=== PATIENT | male | born 1965 | race Caucasian/White ===

== ENCOUNTER 2016-09-23 11:48 | Emergency (ER) | payer OTHER, SELFPAY ==
[~2016-09-23] VITALS: Ht 175.3 cm; Wt 83.0 kg
[2016-09-23] MEDS ORDERED: HEPARIN DRIP 25,000 UNITS in APPROPRIATE DILUENT 1 EA IV SCH (11:56)
[2016-09-23] MEDS ORDERED: NITROGLYCERIN 2% OINT 1 GM *U/D* PKT As Ordered ONE (11:56)
[2016-09-23] MEDS ORDERED: NITROGLYCERIN 2% OINT 1 GM *U/D* PKT TOP ONE (12:00)
[2016-09-23] MEDS ORDERED: TENECTEPLASE 50 MG KIT (TNKase)(J3101) IV ONE (12:00)
[2016-09-23] MEDS ORDERED: HEPARIN SOD (PORCINE) 5000 UNITS/ML VIAL IV ONE (12:00)
[2016-09-23] MEDS: MORPHINE 4 MG/ML 1ML SYRINGE IV PRN ×2 (12:01→12:15)
[2016-09-23 12:04] LABS: BASO % 0.4 % (0.0-1.0); EOS # 0.4 K/mm3 (0.0-0.50); EOS % 3.1 % (0.0-3.0); LARGE UNSTAINED CELL # 0.2 K/mm3 (0.0-0.4); LARGE UNSTAINED CELL % 1.7 % (0.0-4.0); LYMPH # 3.7 K/mm3 (1.5-4.5); LYMPH % 26.6 % (24.0-44.0); MEAN CORPUSCULAR HEMOGLOBIN 34.6 pg (27.0-33.0); MEAN CORPUSCULAR HGB CONC 35.4 g/dl (32.0-36.5); MEAN CORPUSCULAR VOLUME 97.6 fl (80.0-96.0); MONO # 0.9 K/mm3 (0.0-0.8); MONO % 6.4 % (0.0-5.0); NEUTROPHILS # 8.5 K/mm3 (1.8-7.7); NEUTROPHILS % 61.8 % (36.0-66.0); PLATELET COUNT, AUTOMATED 304 k/mm3 (150-450); RED CELL DISTRIBUTION WIDTH 13.3 % (11.5-14.5); WHITE BLOOD COUNT 13.8 K/mm3 (4.0-10.0)
[2016-09-23] MEDS ORDERED: CLOPIDOGREL 75 MG TAB PO STA (12:05)
--- NOTE | 2016-09-23 12:08 | REP ---
Portable chest, single AP view, the patient semi upright: There are no comparisons. There is an incomplete inspiratory effort. This in combination with portable positioning artifactually magnify cardiac size. There are no focal infiltrates. The interstitium is mildly coarsened. This is of uncertain significance and could be artifact from incomplete inspiration portable technique. There are no masses. The jina, mediastinum, and bony thorax are unremarkable. Signed by [place] Pierre MD 09/23/2016 12:00 P
[2016-09-23] MEDS ORDERED: ONDANSETRON 4MG/2ML VIAL (J2405) IV ONE (12:15)
[2016-09-23 12:25] VITALS: BP 154/80
[2016-09-23 12:35] VITALS: BP 158/94
[2016-09-23 12:39] LABS: ANION GAP 8 MEQ/L (8-16); BLOOD UREA NITROGEN 19 MG/DL (7-18); CALCIUM LEVEL 8.5 MG/DL (8.5-10.1); CARBON DIOXIDE LEVEL 27 MEQ/L (21-32); CHLORIDE LEVEL 106 MEQ/L (98-107); CREATININE FOR GFR 1.07 MG/DL (0.70-1.30); GLOMERULAR FILTRATION RATE > 60.0 (>60); GLUCOSE, FASTING 233 MG/DL (70-105); POTASSIUM SERUM 3.7 MEQ/L (3.5-5.1); SODIUM LEVEL 141 MEQ/L (136-145)
[2016-09-23 12:41] LABS: INR 1.08
--- NOTE | 2016-09-24 20:26 | ECGEPIP ---
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
== END 2016-09-23 12:38 | disposition short-term general hospital (02) ==
LOC: EDBD 11:48 → M ED 12:04
DX: I21.3 ST elevation (STEMI) myocardial infarction of unspecified site (principal); R06.02 Shortness of breath; F17.200 Nicotine dependence, unspecified, uncomplicated; Z82.49 Family history of ischemic heart disease and other diseases of the circulatory system

== ENCOUNTER → 2017-03-20 | Outpatient (REF) | payer OTHER | LOC: M SFHCCLAY 14:51 | PROVIDERS: ATTEND Family Medicine | DX: Z11.4 Encounter for screening for human immunodeficiency virus [HIV] (principal) ==

== ENCOUNTER 2018-11-21 00:23 | Inpatient (IN) | payer OTHER ==
[~2018-11-21] VITALS: Ht 175.3 cm; Wt 77.7 kg
[2018-11-21] VITALS (7 sets, daily range): BP systolic 121–138; BP diastolic 57–71
[~2018-11-21 00:23] MED LIST: MACR100C43 PO
[2018-11-21] MEDS ORDERED: ATOR40TA75 PO ×2 (00:42→04:25)
[2018-11-21] MEDS ORDERED: LISI-542 PO ×2 (00:42→04:25)
[2018-11-21] MEDS ORDERED: ECOT81TA5 PO (00:42)
[2018-11-21] MEDS ORDERED: PLAV1TAB2 PO ×2 (00:42→04:25)
[2018-11-21] MEDS ORDERED: NS 1,000 ML IV ONE (01:15)
[2018-11-21 01:24] LABS: BASO # 0.1 10^3/uL (0.0-0.2); BASO % 0.3 % (0.0-1.0); EOS # 0.2 10^3/uL (0.0-0.50); EOS % 1.4 % (0.0-3.0); HEMOGLOBIN 12.8 g/dl (13.5-17.5); LYMPH # 2.4 10^3/uL (1.5-4.5); LYMPH % 16.5 % (24.0-44.0); MEAN CORPUSCULAR HGB CONC 33.7 g/dl (32.0-36.5); MEAN CORPUSCULAR VOLUME 97.9 fl (80.0-96.0); MONO # 1.3 10^3/uL (0.0-0.8); MONO % 8.6 % (0.0-5.0); NEUTROPHILS # 10.7 10^3/uL (1.8-7.7); NEUTROPHILS % 72.9 % (36.0-66.0); PLATELET COUNT, AUTOMATED 276 10^3/uL (150-450); RED BLOOD COUNT 3.88 10^6/uL (4.30-6.10); WHITE BLOOD COUNT 14.7 10^3/uL (4.0-10.0)
[2018-11-21 01:34] LABS: INR 1.12; PROTHROMBIN TIME 14.1 SECONDS (11.8-14.0)
[2018-11-21 01:35] LABS: PARTIAL THROMBOPLASTIN TIME 24.7 SECONDS (25.0-38.4)
[2018-11-21 01:43] LABS: BLOOD UREA NITROGEN 16 MG/DL (7-18); CALCIUM LEVEL 8.3 MG/DL (8.5-10.1); CARBON DIOXIDE LEVEL 25 MEQ/L (21-32); CHLORIDE LEVEL 111 MEQ/L (98-107); CREATININE FOR GFR 0.97 MG/DL (0.70-1.30); GLOMERULAR FILTRATION RATE > 60.0 (>56); GLUCOSE, FASTING 132 MG/DL (70-100); POTASSIUM SERUM 4.2 MEQ/L (3.5-5.1); SODIUM LEVEL 141 MEQ/L (136-145)
[2018-11-21] MEDS ORDERED: ISOVUE-370 76% 100ML VIAL (Q9967) As Ordered ONE (02:11)
[2018-11-21 02:49] LABS: APPEARANCE, URINE MANUAL TURBID (CLEAR); COLOR, URINE MANUAL RED (YELLOW); SPECIFIC GRAVITY,URINE MANUAL 1.041 (1.002-1.035)
[2018-11-21 02:53] LABS: BILIRUBIN, URINE MANUAL OBSCURED (NEGATIVE); BLOOD URINE MANUAL POSITIVE (NEGATIVE); GLUCOSE, URINE (UA) MANUAL OBSCURED mg/dL (NEGATIVE); KETONE, URINE MANUAL OBSCURED mg/dL (NEGATIVE); LEUKOCYTE ESTERASE, URINE MAN OBSCURED (NEGATIVE); NITRITE, URINE MANUAL OBSCURED (NEGATIVE); PH,URINE MAN OBSCURED UNITS (5.0 - 7.0); PROTEIN, URINE MANUAL OBSCURED mg/dL (NEGATIVE); UROBILINOGEN, URINE MANUAL OBSCURED mg/dl (NORMAL)
[2018-11-21 02:55] LABS: BACTERIA, URINE NONE SEEN; HYALINE CAST, URINE NONE SEEN /lpf (0-1); RBC, URINE TNTC /hpf (0-3); SQUAMOUS EPITHELIAL CELL URINE NONE SEEN /hpf (SMALL AMT)
[2018-11-21] MEDS ORDERED: LIDOCAINE 2% 5ML JELLY UROJET TOP ONE ×2 (03:00→05:30)
[2018-11-21] MEDS ORDERED: METAL LOCK LOOP XX ONE (03:16)
--- NOTE | 2018-11-21 04:19 | REPVR ---
EXAM: CT Abdomen and Pelvis With Contrast EXAM DATE/TIME: 11/21/2018 2:03 AM CLINICAL HISTORY: 52 years old, male; Other: Hematuria; Additional info: Eval hematuria/bladder path ? TECHNIQUE: Imaging protocol: Axial computed tomography images of the abdomen and pelvis with intravenous contrast. Coronal and sagittal reformatted images were created and reviewed. Radiation optimization: All CT scans at this facility use at least one of these dose optimization techniques: automated exposure control; mA and/or kV adjustment per patient size (includes targeted exams where dose is matched to clinical indication); or iterative reconstruction. Contrast material: ISO; Contrast volume: 100 ml; Contrast route: AC; COMPARISON: CT ABD PELVIS WITH CONTRAST 03/14/2016 5:44 PM FINDINGS: Lungs: The visualized portions of the lung bases are normal. Mediastinum: A small hiatal hernia is present. Liver: There are no focal liver lesions present. Gallbladder and bile ducts: The gallbladder is normal with no stones or biliary ductal dilation. Pancreas: The pancreas is normal with no ductal dilation. Spleen: The spleen is normal. Adrenals: The adrenal glands are normal. Kidneys and ureters: There is an extrarenal pelvis of the left kidney.There are no renal or ureteral stones or hydronephrosis. The nephrograms are symmetric. Stomach and bowel: Moderate diverticulosis is present in the sigmoid colon. The small bowel appears unremarkable. Appendix: A normal appendix is identified. Intraperitoneal space: There is no evidence of free intraperitoneal or pelvic fluid. There is no free intraperitoneal air. Vasculature: Atherosclerotic changes are present in the abdominal aorta and the iliac arteries. Lymph nodes: No lymphadenopathy is seen. Bladder: The bladder is moderately distended. There is a large, irregularly-shaped hyperdense intraluminal blood clot in the bladder measuring 9.1 x 9.2 x 5.0 cm. It is outlined by excreted contrast on the delayed postcontrast images. In the anterior inferior aspect of the bladder, there is nodularity of the bladder wall, measuring 1.7 x 1.7 x 0.7 cm which may represent a small bladder mass. It is difficult to determine if it enhances as it is similar in density on the initial and the delayed postcontrast images and no unenhanced images are available. Reproductive: The prostate gland demonstrates moderate nonspecific enlargement. The seminal vesicles are normal. Bones/joints: Degenerative endplate changes are seen at multiple levels in the visualized spine. Soft tissues: Unremarkable. IMPRESSION: 1. Large blood clot within the lumen of the bladder with moderate distention of the bladder. Small hyperdense soft tissue nodule along the anteroinferior aspect of the bladder is suspicious for a bladder mass. 2. Moderate enlargement of the prostate. 3. No renal, ureteral, or bladder stones. No significant hydronephrosis. Electronically signed by: Marry Riojas On 11/21/2018 04:19:05 AM
[2018-11-21] MEDS ORDERED: MACR100C43 PO (04:25)
[2018-11-21] MEDS ORDERED: ASPI81CH33 PO (04:25)
[2018-11-21] MEDS ORDERED: NITR4TASL SL (04:26)
[2018-11-21] MEDS ORDERED: MORPHINE 4 MG/ML 1ML VIAL/SYRINGE (J2270) IV ONE (05:45)
[2018-11-21 06:50] LABS: HEMATOCRIT 35.9 % (42.0-52.0)
--- NOTE | 2018-11-21 08:35 | REP ---
Portable chest x-ray: Single view. History: Preop. Comparison chest x-ray: September 23, 2016. Findings: EKG monitoring electrodes overlie the chest. Lungs are well inflated and clear. Heart is not enlarged. Pulmonary vasculature is not increased. No significant bony abnormalities seen. Impression: No active disease. Electronically Signed by Michael Martines MD 11/21/2018 08:26 A
--- NOTE | 2018-11-21 09:19 | SMCUROLCON ---
Urology Consultation General Date of Consultation 11/21/18 Reason For Consultation This patient is seen for Dizziness. History of Present Illness This is a 52 y/o M w/ a PMH significant for CAD (s/p MA and 2 stents in 2017), presenting to the ER w/ gross hematuria and urinary retention. He notes that he has on and off small amounts of gross hematuria for 2-3 years but he has never been evaluated for this. Yesterday evening he started having large amounts of gross hematuria until he could no longer void. Once in the ER a 3-way catheter was placed and CBI was started. A CT A/P was obtained and was notable for a large clot in the bladder as well as a possible anterior bladder mass. The patient is a current smoker and has a 20-30 pack year history. He is on ASA 81mg and plavix and last took them 2 days ago. He denies dysuria. He denies fevers or chills. His Hb in the ED on presentation was 12.8 and when repeated 5 hours later it was 12. Past Medical History Medical History CAD Surgical Hstory cardiac stents in 2017 Medications Current Medications Current Medications Home Med (Med Rec Complete!) ASDIRECTED XX ; Start 11/21/18 at 04:30; Stop 11/21/18 at 04:30; Status DC Allergies Allergies: Coded Allergies: No Known Allergies (Unverified , 09/23/16) Review of Systems General: Denies: Fatigue, Malaise Constitutional: Denies: Fever, Chills, Sweats, Weakness, Malaise Pulmonary: Denies: Dyspnea, Cough Cardiovascular: Denies Chest Pain, Denies Palpitations Gastrointestinal: Denies: Nausea, Vomiting, Abdominal Pain Genitourinary: Reports: Hematuria, Retention Musculoskeletal: Denies: Neck Pain, Back Pain Neurological: Denies: Weakness, Numbness, Incoordination, Change in Speech Psych: Reports: Mood Normal; Denies: Anxiety, Depression Physical Examination General Exam: Alert, Cooperative, No Acute Distress Chest Exam: Normal air movement Heart Exam: Rate Normal, Regular Rhythm Male Exam 3-way catheter in place w/ CBI on medium drip and pink urine draining Vital Signs/I&O Vital Signs Date Time Temp Pulse Resp B/P (MAP) Pulse Ox O2 Delivery O2 Flow Rate FiO2 11/21/18 08:49 69 15 97 11/21/18 08:30 124/58 (80) 11/21/18 06:25 Room Air 11/21/18 00:27 98.2 I&O- Last 24 Hours up to 6 AM 11/21/18 05:59 Intake Total 4000 ml Output Total 775 ml Balance 3225 ml Laboratory Data 24H Labs Laboratory Tests 2 11/21/18 01:19: Immature Granulocyte % (Auto) 0.3, White Blood Count 14.7H, Red Blood Count 3.88L, Hemoglobin 12.8L, Hematocrit 38.0L, Mean Corpuscular Volume 97.9H, Mean Corpuscular Hemoglobin 33.0, Mean Corpuscular Hemoglobin Concent 33.7, Red Cell Distribution Width 13.8, Platelet Count 276, Neutrophils (%) (Auto) 72.9H, Lymph ocytes (%) (Auto) 16.5L, Monocytes (%) (Auto) 8.6H, Eosinophils (%) (Auto) 1.4, Basophils (%) (Auto) 0.3, Neutrophils # (Auto) 10.7H, Lymphocytes # (Auto) 2.4, Monocytes # (Auto) 1.3H, Eosinophils # (Auto) 0.2, Basophils # (Auto) 0.1, Nucleated Red Blood Cells % (auto) 0.0, Prothrombin Time 14.1H, Prothromb Time International Ratio 1.12, Activated Partial Thromboplast Time 24.7L, Anion Gap 5L, Glomerular Filtration Rate > 60.0, Blood Urea Nitrogen 16, Creatinine 0.97, Sodium Level 141, Potassium Level 4.2, Chloride Level 111H, Carbon Dioxide Level 25, Calcium Level 8.3L 11/21/18 02:35: Bedside Urine Color (LAB) REDH, Bedside Urine Appearance (LAB) TURBIDH, Bedside Urine pH (LAB) OBSCUREDH, Bedside Urine Specific [place] (LAB 1.041H, Bedside Urine Protein (LAB) OBSCUREDH, Bedside Urine Glucose (UA) OBSCUREDH, Bedside Urine Ketones (LAB) OBSCUREDH, Bedside Urine Blood POSITIVEH, Bedside Urine Nitrite (LAB) OBSCUREDH, Bedside Urine Bilirubin (LAB) OBSCUREDH, Bedside Urine Urobilinogen (LAB) OBSCUREDH, Bedside Urine Leukocyte Esterase (L OBSCUREDH, Urine WBC 1-3, Urine RBC TNTCH, Urine Squamous Epithelial Cells NONE SEEN, Urine Bacteria NONE SEEN, Urine Hyaline Casts NONE SEEN, Urine Sediment Examination PERFORMED CBC/BMP Laboratory Tests 11/21/18 01:19 Red Blood Count 3.88 L, Mean Corpuscular Volume 97.9 H, Mean Corpuscular Hemoglobin 33.0, Mean Corpuscular Hemoglobin Concent 33.7, Red Cell Distribution Width 13.8, Neutrophils (%) (Auto) 72.9 H, Lymphocytes (%) (Auto) 16.5 L, Monocytes (%) (Auto) 8.6 H, Eosinophils (%) (Auto) 1.4, Basophils (%) (Auto) 0.3, Neutrophils # (Auto) 10.7 H, Lymphocytes # (Auto) 2.4, Monocytes # (Auto) 1.3 H, Eosinophils # (Auto) 0.2, Basophils # (Auto) 0.1, Calcium Level 8.3 L 11/21/18 06:38 Microbiology Microbiology 11/21/18 Urine Culture, Received Pending Assessment This is a 52 y/o M here w/ gross hematuria and clot urinary retention. I discussed the CT findings w/ him and explained that he likely has a bladder tumor causing the hematuria. Given the large blood clot in the bladder he will likely remain in retention for a while even if the hematuria stops. I recommended that we take him to the OR today for cystoscopy, clot evacuation, and transurethral resection of bladder tumor. After a discussion of the risks and benefits, informed consent was signed. Of note, the patient has a hx of CAD s/p cardiac stents in 2017 and is on ASA 81mg and plavix, last taken 2 days ago. 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 He notes that he has not had any cardiac problems recently. Plan - recommend admission to hospitalist service - hold plavix (ok to keep on ASA 81mg) - continue CBI and titrate the drip so that outflow remains pink or clearer - plan to take him to the OR today for cystoscopy, clot evacuation, and transurethral resection of bladder tumor - NPO until surgery YAMIL SENIOR MD Nov 21, 2018 09:19
--- NOTE | 2018-11-21 11:02 | HPEPDOC ---
[facility] Medical History & Physical Date of Admission Nov 21, 2018 Date of Service: Nov 21, 2018 History and Physical CHIEF COMPLAINT: Dizziness HISTORY OF PRESENT ILLNESS: This is a 52-year-old male who has had spotty hematu james over the past couple of years. Over the past couple of days he developed orange urine and then red urine with clots. He developed cramping last night that was so severe he became dizzy and almost passed out. He had difficulty with urination. At that point he was then brought to the emergency room by ambulance. PAST MEDICAL HISTORY: 1. Coronary artery disease for which he sustained an ID in 2017 and underwent percutaneous intervention with placement of 2 stents. 2. Essential hypertension. 3. Hives of unclear etiology that resolved after one year. 4. History of left septic joint in 2016 for which he underwent incision and drainage. PAST SURGICAL HISTORY: 1. The aforementioned incision and drainage to the left knee. 2. 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 He is a [id number] history. He has attempted to quit unsuccessfully. ETOH: Alcohol use is moderate Illicit drug use: Patient states he uses marijuana sparingly IV drug use: None Other relevant social factors: The patient is full CODE STATUS. He does not have a medical decision proxy. His primary care provider is Dr. Ballard. FAMILY HISTORY: Father: Paternal history of heart disease and hypertension Mother: History of congenital valvular heart disease and multiple family members with various cancers ALLERGIES: Please see below. REVIEW OF SYSTEMS: 10 systems are reviewed and are negative except as stated in the HPI. HOME MEDICATIONS: Please see below. PHYSICAL EXAMINATION: VITAL SIGNS: Temperature afebrile, pulse 64-92, respiratory rate 15, blood pressure 121/57, pulse oximetry 98% on room air. GENERAL APPEARANCE: Well kempt, well-nourished, no acute distress. HEENT: Neck is supple, mild submental adenopathy, no thyromegaly, oral mucosa moist, good dentition, no scleral icterus. CARDIOVASCULAR: Regular rate and rhythm, no murmur or bruit, palpable PMI to left chest. LUNGS: Clear to auscultation with good air movement, no cough. ABDOMEN: Soft, nontender, nondistended, bowel tones are present, bladder irrigation catheter in place No flank or suprapubic tenderness. EXTREMITIES: No peripheral edema, pedal pulses are readily palpable. NEUROLOGICAL: No focal neuromotor or sensory deficit. PSYCHIATRIC: Mood is appropriate, cognition and insight are intact. LABORATORY DATA: See below. IMAGING: IMPRESSION: 1. Large blood clot within the lumen of the bladder with moderate distention of the bladder. Small hyperdense soft tissue nodule along the anteroinferior aspect of the bladder is suspicious for a bladder mass. 2. Moderate enlargement of the prostate. 3. No renal, ureteral, or bladder stones. No significant hydronephrosis. Electronically signed by: Marry Riojas On 11/21/2018 04:19:05 AM MICROBIOLOGY: Please see below. ASSESSMENT/PLAN: 1. Hematuria with bladder mass--patient is undergoing bladder irrigation. He has been seen by the urology service and will be taken to the OR for cystoscopy, evacuation of clots, and probable resection of mass. Concern is raised for neoplasm. 2. Coronary artery disease--patient had stents placed 2 years ago. His aspirin and Plavix are being held. He'll be continued on his usual medical management regimen after surgery. 3. DVT prophylaxis--will make use of serial compression devices until after surgery. The patient is appropriately placed inpatient status. We do anticipate his length of stay to be greater than 2 midnights. Given the patient's underlying comorbidities of coronary artery disease and essential hypertension and his antiplatelet therapy he is at high risk of bleeding. He is currently hemo dynamically stable. We will also continue to monitor his hemoglobin and transfuse as needed for any blood loss. Vital Signs Vital Signs Date Time Temp Pulse Resp B/P (MAP) Pulse Ox O2 Delivery O2 Flow Rate FiO2 11/21/18 09:19 92 99 11/21/18 08:49 15 11/21/18 08:30 124/58 (80) 11/21/18 06:25 Room Air 11/21/18 00:27 98.2 Laboratory Data Labs 24H Laboratory Tests 2 11/21/18 01:19: Immature Granulocyte % (Auto) 0.3, White Blood Count 14.7H, Red Blood Count 3.88L, Hemoglobin 12.8L, Hematocrit 38.0L, Mean Corpuscular Volume 97.9H, Mean Corpuscular Hemoglobin 33.0, Mean Corpuscular Hemoglobin Concent 33.7, Red Cell Distribution Width 13.8, Platelet Count 276, Neutrophils (%) (Auto) 72.9H, Lymphocytes (%) (Auto) 16.5L, Monocytes (%) (Auto) 8.6H, Eosinophils (%) (Auto) 1.4, Basophils (%) (Auto) 0.3, Neutrophils # (Auto) 10.7H, Lymphocytes # (Auto) 2.4, Monocytes # (Auto) 1.3H, Eosinophils # (Auto) 0.2, Basophils # (Auto) 0.1, Nucleated Red Blood Cells % (auto) 0.0, Prothrombin Time 14.1H, Prothromb Time International Ratio 1.12, Activated Partial Thromboplast Time 24.7L, Anion Gap 5L, Glomerular Filtration Rate > 60.0, Blood Urea Nitrogen 16, Creatinine 0.97, Sodium Level 141, Potassium Level 4.2, Chloride Level 111H, Carbon Dioxide Level 25, Calcium Level 8.3L 11/21/18 02:35: Bedside Urine Color (LAB) REDH, Bedside Urine Appearance (LAB) TURBIDH, Bedside Urine pH (LAB) OBSCUREDH, Bedside Urine Specific [place] (LAB 1.041H, Bedside Urine Protein (LAB) OBSCUREDH, Bedside Urine Glucose (UA) OBSCUREDH, Bedside Urine Ketones (LAB) OBSCUREDH, Bedside Urine Blood POSITIVEH, Bedside Urine Nitrite (LAB) OBSCUREDH, Bedside Urine Bilirubin (LAB) OBSCUREDH, Bedside Urine Urobilinogen (LAB) OBSCUREDH, Bedside Urine Leukocyte Esterase (L OBSCUREDH, Urine WBC 1-3, Urine RBC TNTCH, Urine Squamous Epithelial Cells NONE SEEN, Urine Bacteria NONE SEEN, Urine Hyaline Casts NONE SEEN, Urine Sediment Examination PERFORMED CBC/BMP Laboratory Tests 11/21/18 01:19 Red Blood Count 3.88 L, Mean Corpuscular Volume 97.9 H, Mean Corpuscular Hemoglobin 33.0, Mean Corpuscular Hemoglobin Concent 33.7, Red Cell Distribution Width 13.8, Neutrophils (%) (Auto) 72.9 H, Lymphocytes (%) (Auto) 16.5 L, Monocytes (%) (Auto) 8.6 H, Eosinophils (%) (Auto) 1.4, Basophils (%) (Auto) 0.3, Neutrophils # (Auto) 10.7 H, Lymphocytes # (Auto) 2.4, Monocytes # (Auto) 1.3 H, Eosinophils # (Auto) 0.2, Basophils # (Auto) 0.1, Calcium Level 8.3 L 11/21/18 06:38 Microbiology Microbiology 11/21/18 Urine Culture, Received Pending Home Medications Scheduled Aspirin (Aspirin) 81 Mg Tab.chew, 81 MG PO DAILY Atorvastatin Calcium (Atorvastatin Calcium) 40 Mg Tablet, 40 MG PO DAILY Clopidogrel Bisulfate (Plavix) 75 Mg Tablet, 75 MG PO DAILY Lisinopril (Lisinopril) 5 Mg Tablet, 5 MG PO DAILY Nitrofurantoin Monohyd/M-Cryst (Macrobid 100 mg Capsule) 100 Mg Capsule, 100 MG PO BID TAKEN ONLY 1 DOSE OF A 7 DAY BID PRESCRIPTION Scheduled PRN Nitroglycerin (Nitrostat) 0.4 Mg Tab.subl, 0.4 MG SL NITRO PRN for CHEST PAIN Allergies Coded Allergies: No Known Allergies (Unverified , 09/23/16) A-FIB/CHADSVASC A-FIB History Current/History of A-Fib/PAF?: No Current PO Anticoag Therapy: No KORTNEY DACOSTA MD Nov 21, 2018 11:02
[2018-11-21] MEDS ORDERED: ONDANSETRON 4MG/2ML VIAL (J2405) IV PRN ×2 (11:15→15:30)
[2018-11-21] MEDS ORDERED: FAMOTIDINE INJ 20MG/2ML VIAL (S0028) IVP ONE (11:15)
[2018-11-21] MEDS ORDERED: NS 1,000 ML IV SCH (11:15)
[2018-11-21] MEDS ORDERED: dexameTHASONE 4 MG/ML 1ML VIAL (J1100) As Ordered ONE (13:16)
[2018-11-21] MEDS ORDERED: PROPOFOL 200 MG/20 ML VIAL As Ordered ONE (13:16)
[2018-11-21] MEDS ORDERED: fentaNYL 250 MCG/5 ML INJECTION (J3010) As Ordered ONE (13:16)
[2018-11-21] MEDS ORDERED: MIDAZOLAM INJ 2 MG/2 ML VIAL (J2250) As Ordered ONE (13:16)
[2018-11-21] MEDS ORDERED: LIDOCAINE 2% INJ 100 MG/5 ML SDV (FOR ANES.) As Ordered ONE (13:16)
[2018-11-21] MEDS ORDERED: ROCURONIUM BROMIDE 50 MG/5 ML VIAL As Ordered ONE (13:16)
[2018-11-21] MEDS ORDERED: ASPIRIN 81 MG CHEW TABLET As Ordered ONE (13:21)
[2018-11-21] MEDS ORDERED: ASPIRIN 81 MG CHEW TABLET PO ONE (13:30)
[2018-11-21] MEDS ORDERED: ATORVASTATIN 20 MG TAB PO ONE (13:30)
[2018-11-21] MEDS ORDERED: ceFAZolin 2 GM/D5W 50 ML IV BAG (J0690 PER 500MG) As Ordered ONE (13:57)
[2018-11-21] MEDS ORDERED: ONDANSETRON 4MG/2ML VIAL (J2405) As Ordered ONE (14:34)
[2018-11-21] MEDS ORDERED: SUGAMMADEX SODIUM 500 MG/5 ML VIAL (BRIDION) As Ordered ONE (14:34)
[2018-11-21] MEDS ORDERED: MEPERIDINE 50 MG/ML 1ML VIAL (J2175) As Ordered ONE (14:46)
[2018-11-21] MEDS ORDERED: PERCOCET 5MG/325MG TAB PO PRN (15:30)
[2018-11-21] MEDS ORDERED: LR 1,000 ML IV SCH (15:30)
[2018-11-21] MEDS ORDERED: fentaNYL 100 MCG/2 ML INJECTION (J3010) IV PRN (15:30)
[2018-11-21] MEDS: NICOTINE 14 MG/24 HR TRANSDERMAL TD SCH (20:17)
[2018-11-22 00:40] VITALS: BP 119/56
[2018-11-22 05:55] LABS: HEMOGLOBIN 10.7 g/dl (13.5-17.5); MEAN CORPUSCULAR HEMOGLOBIN 32.2 pg (27.0-33.0); MEAN CORPUSCULAR HGB CONC 33.4 g/dl (32.0-36.5); MEAN CORPUSCULAR VOLUME 96.4 fl (80.0-96.0); PLATELET COUNT, AUTOMATED 275 10^3/uL (150-450); RED BLOOD COUNT 3.32 10^6/uL (4.30-6.10); WHITE BLOOD COUNT 19.3 10^3/uL (4.0-10.0)
[2018-11-22 06:00] VITALS: BP 119/59
[2018-11-22 06:12] LABS: BLOOD UREA NITROGEN 12 MG/DL (7-18); CARBON DIOXIDE LEVEL 24 MEQ/L (21-32); CHLORIDE LEVEL 109 MEQ/L (98-107); CREATININE FOR GFR 0.93 MG/DL (0.70-1.30); GLOMERULAR FILTRATION RATE > 60.0 (>56); GLUCOSE, FASTING 93 MG/DL (70-100); POTASSIUM SERUM 4.1 MEQ/L (3.5-5.1); SODIUM LEVEL 141 MEQ/L (136-145)
[2018-11-22] MEDS ORDERED: BELLADONNA 16.2mg/OPIUM 30mg 1 EA SUPP PR ONE (12:00)
[2018-11-22] MEDS ORDERED: HYOSCYAMINE SULFATE 0.125 MG SUBL TABLET PO PRN (12:30)
[2018-11-22] MEDS ORDERED: BELLADONNA 16.2mg/OPIUM 30mg 1 EA SUPP PR PRN (12:30)
[2018-11-22 14:00] VITALS: BP 134/60
[2018-11-22] MEDS: PHENAZOPYRIDINE 100 MG TAB PO SCH ×2 (16:06→20:39)
[2018-11-22] MEDS: NICOTINE 14 MG/24 HR TRANSDERMAL TD SCH (20:39)
--- NOTE | 2018-11-22 21:30 | IPNPDOC ---
Subjective Date Seen The patient was seen on 11/22/18. Subjective Chief Complaint/HPI Earlier in the morning, he was having trouble with bladder discomfort. Urology ordered him a B&O suppository and pyridium, and he was feeling much better when I saw him. Reports that discomfort is currently improved. Constitutional: Denies: Chills, Fever Cardiovascular: Denies: Chest Pain Gastrointestinal: Reports: Abdominal Pain (earlier); Denies: Nausea, Vomiting, Diarrhea, Constipation Genitourinary: Reports: Other Symptoms (catheter in place) Objective Physical Examination General Exam: Positive: Alert, Cooperative Chest Exam: Positive: Clear to auscultation, Normal air movement Heart Exam: Positive: Rate Normal, Regular Rhythm Abdomen Exam: Positive: Normal bowel sounds, Soft; Negative: Tenderness Extremity Exam: Negative: Edema Psych Exam: Positive: Mental status NL, Mood NL Assessment /Plan Problems (1) History of coronary artery disease Problem Text: Cardiology had stopped his Plavix in August, though records suggest that he continued it. No chest pain at this time. (2) Bladder mass Status: Acute Problem Text: We await the results of pathology. Discomfort earlier today improved with B&O suppository and pyridium. (3) Gross hematuria Status: Acute Problem Text: No current hematuria. Plan/VTE VTE Prophylaxis Ordered?: Yes VS, I&O, 24H, Fishbone Vital Signs/I&O Vital Signs Date Time Temp Pulse Resp B/P (MAP) Pulse Ox O2 Delivery O2 Flow Rate FiO2 11/22/18 14:00 98.4 71 17 134/60 (84) 97 11/21/18 14:55 2 11/21/18 11:54 Room Air I&O- Last 24 Hours up to 6 AM 11/22/18 06:00 Intake Total 79720 ml Output Total 65009 ml Balance -5000 ml Laboratory Data 24H LABS Laboratory Tests 2 11/22/18 05:24: Nucleated Red Blood Cells % (auto) 0.0, Anion Gap 8, Glomerular Filtration Rate > 60.0, Blood Urea Nitrogen 12, Creatinine 0.93, Sodium Level 141, Potassium Level 4.1, Chloride Level 109H, Carbon Dioxide Level 24, Calcium Level 8.0L CBC/BMP Laboratory Tests 11/22/18 05:24 Red Blood Count 3.32 L, Mean Corpuscular Volume 96.4 H, Mean Corpuscular Hemoglobin 32.2, Mean Corpuscular Hemoglobin Concent 33.4, Red Cell Distribution Width 13.7, Calcium Level 8.0 L Microbiology Microbiology 11/21/18 Urine Culture - Final, Complete JULIAN SINGH DO Nov 22, 2018 21:30
[2018-11-22 22:00] VITALS: BP 124/98
[2018-11-23 06:00] VITALS: BP 115/62
--- NOTE | 2018-11-23 06:29 | ECGEPIP ---
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
[2018-11-23] MEDS: PHENAZOPYRIDINE 100 MG TAB PO SCH ×2 (10:02→16:22)
[2018-11-23] MEDS ORDERED: MIRALAX *UNIT DOSE* 17GM PACKET PO PRN (11:15)
[2018-11-23 14:00] VITALS: BP 109/64
[2018-11-23] MEDS ORDERED: PHEN-593 PO (14:17)
--- NOTE | 2018-11-23 15:26 | IPN ---
DATE OF SERVICE: 11/21/2018 Mr. Barnes is postoperative day #1 status post transurethral resection (TUR) bladder tumor by Dr. Sidhu. He did well through the night, but this morning he had a strong bladder spasm, which has him somewhat concerned. It resolved spontaneously, but was given a B and O suppository at my request. This morning, his urine is perfectly clear. His abdomen is soft. His bladder is not palpably distended. He is afebrile. He does have a white count of 19,000. BUN and creatinine unchanged at 12/0.9. ASSESSMENT: Postoperative day #1 status post TUR bladder tumor. PLAN: Is to observe overnight at the patient's request and give pain control as needed. Will plan on discharging tomorrow morning with catheter attached to leg bag and scheduled office followup in a few weeks for a catheter removal and review of pathology.
--- NOTE | 2018-11-25 02:07 | RO ---
DATE OF PROCEDURE: 11/21/2018 PREPROCEDURE DIAGNOSES: Gross hematuria, bladder mass. POSTPROCEDURE DIAGNOSES: Bladder tumor, gross hematuria. PROCEDURE: Cystoscopy, transurethral resection of bladder tumor (between 2 and 5 cm), clot evacuation, examination under anesthesia. SURGEON: Anoop Sidhu MD AX SURVEY WORKER: None. ANESTHESIA: General. OPERATIVE INDICATIONS: This is a 52-year-old male who presented to emergency room early today with urinary retention due to gross hematuria. A CT scan was obtained in the emergency room that was notable for a very large clot inside the bladder as well as what appeared to be a mass on the anterior wall of the bladder. Brought to the operating room today for above listed procedure. DESCRIPTION OF PROCEDURE: The patient was brought to the operating room, and general anesthesia was induced. Prophylactic antibiotics were infused. He was then placed in the dorsal lithotomy position, and then at this point a bimanual digital rectal examination under anesthesia was performed. It was negative for palpable bladder masses. The bladder was freely mobile. There were no prostate nodules, and the prostate is approximately 30-40 grams. The patient was then prepped and draped in the usual sterile fashion. At this point, a resectoscope was inserted into urethral meatus and advanced into the bladder using the visual obturator. The bladder, of note, had a very large amount of clots in it. These clots were evacuated using an Ellik evacuator. Once all the clots were removed, the bladder was thoroughly examined and the only abnormality seen was an approximately 3 cm tumor in the anterior wall of the bladder. Of note, the tumor did not appear to be actively bleeding. Bilateral ureteral orifices were orthotopic, and they both efflux clear urine. At this point, I utilized a resectoscope to resect the tumor entirely. I resected down to the muscle layer. All of the tumor fragments were then removed using the Ellik evacuator. Once that was done, the base of resection was cauterized using coagulation current. Once satisfied with hemostasis, the resectoscope was removed and the #18-Urdu Jay catheter was inserted into the bladder. The balloon was filled with 10 mL of sterile water and the catheter drained clear. The catheter was connected to gravity drainage, and this marked conclusion of the procedure. The patient was taken out of the dorsal lithotomy position, awakened from anesthesia, and transferred to recovery room in stable condition. ESTIMATED BLOOD LOSS: 10 mL. COMPLICATIONS: None. SPECIMENS: Bladder tumor. PLAN: The patient will be watched in the hospital by the hospitalist service. Assuming his urine remains pink or clear, he can be discharged home when cleared by the hospitalist standpoint. I will probably keep his catheter in for at least 10-14 days, and then we will have him followup for pathology results.
--- NOTE | 2018-12-03 08:33 | DS.PDOC ---
Discharge Summary General Date of Admission Nov 21, 2018 at 11:02 Date of Discharge November 23, 2018 Primary Care Physician: Micheal Cortes M.D. Attending Physician: JULIAN SINGH DO Specialist/Consultants Involve: YAMIL SENIOR MD Discharge Summary PROCEDURES PERFORMED DURING STAY: transurethral resection of bladder tumor, placement of Jay catheter ADMITTING DIAGNOSES: 1. hematuria 2. bladder mass 3. history of CAD DISCHARGE DIAGNOSES: 1. hematuria 2. bladder mass 3. history of CAD COMPLICATIONS/CHIEF COMPLAINT: Bladder Mass, Gross Hematuria. HISTORY OF PRESENT ILLNESS: This is a 52-year-old male who has had spotty hematuria over the past couple of years. Over the past couple of days he developed orange urine and then red urine with clots. He developed cramping last night that was so severe he became dizzy and almost passed out. He had difficulty with urination. At that point he was then brought to the emergency room by ambulance. HOSPITAL COURSE: Patient was found on CT to have a bladder tumor. He was taken to the OR, where this was removed and sent for pathology. Jay remained in p lace. The next morning he had a painful bladder spasm, and discomfort was alleviated with use of pyridium and B&O suppository. By 11/23, discomfort was controlled and he was felt safe to DC home. Emphasized the importance of following up with PCP and urology to follow up on catheter and pathology results. DISCHARGE MEDICATIONS: Please see below. ALLERGIES: Please see below. PHYSICAL EXAMINATION ON DISCHARGE: VITAL SIGNS: Please see below. GENERAL: comfortable, NAD HEENT: MMM CARDIOVASCULAR EXAMINATION: regular rate and rhythm RESPIRATORY EXAMINATION: CTAB ABDOMINAL EXAMINATION: soft, nontender and nondistended EXTREMITIES: no edema SKIN: no rash LABORATORY DATA: Please see below. IMAGING: CT abdomen and pelvis 11/21 showed: 1. Large blood clot within the lumen of the bladder with moderate distention of the bladder. Small hyperdense soft tissue nodule along the anteroinferior aspect of the bladder is suspicious for a bladder mass. 2. Moderate enlargement of the prostate. 3. No renal, ureteral, or bladder stones. No significant hydronephrosis. PROGNOSIS: good ACTIVITY: [As tolerated]. DIET: low cholesterol DISCHARGE PLAN: Home. Call urology and PCP office for followup. DISPOSITION: 01 Home, Self-Care. DISCHARGE INSTRUCTIONS: Take all medications as prescribed. Contact the office with any problems, complaints, or concerns. ITEMS TO FOLLOWUP ON ON OUTPATIENT: 1. pathology results 2. catheter DISCHARGE CONDITION: [Stable]. TIME SPENT ON DISCHARGE: Greater than 15 minutes. Discharge Medications Scheduled Aspirin (Aspirin) 81 Mg Tab.chew, 81 MG PO DAILY, (Reported) Atorvastatin Calcium (Atorvastatin Calcium) 40 Mg Tablet, 40 MG PO DAILY, (R eported) Lisinopril (Lisinopril) 5 Mg Tablet, 5 MG PO DAILY, (Reported) Phenazopyridine HCl (Phenazopyridine HCl) 100 Mg Tablet, 200 MG PO TID Scheduled PRN Nitroglycerin (Nitrostat) 0.4 Mg Tab.subl, 0.4 MG SL NITRO PRN for CHEST PAIN, (Reported) Allergies Coded Allergies: No Known Allergies (Unverified , 09/23/16) JULIAN SINGH DO Dec 03, 2018 08:33
[2018-12-22] MEDS ORDERED: ONDA8TAB7 PO (10:06)
[2018-12-22] MEDS ORDERED: OLAN10TA2 PO (10:06)
[2018-12-22] MEDS ORDERED: PROC10TA4 PO (10:06)
== END 2018-11-23 17:10 | disposition home or self-care (01) | DRG 461 ==
LOC: M ED 00:23 → M ED INP 11:02 → M MSPAV 15:39
PROVIDERS: ADMIT Internal Medicine; ATTEND Family Medicine
PROC: 0TCB8ZZ Extirpation of Matter from Bladder, Via Natural or Artificial Opening Endoscopic (ICD-10-PCS; 2018-11-21)
PROC: 0TBB8ZX Excision of Bladder, Via Natural or Artificial Opening Endoscopic, Diagnostic (ICD-10-PCS; principal; 2018-11-21 13:15)
DX: C67.3 Malignant 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bladder (principal); I10 Essential (primary) hypertension; R31.0 Gross hematuria; I25.10 Atherosclerotic heart disease of native coronary artery without angina pectoris; Z79.82 Long term (current) use of aspirin; Z79.899 Other long term (current) drug therapy; I25.2 Old myocardial infarction; F17.200 Nicotine dependence, unspecified, uncomplicated; Z95.2 Presence of prosthetic heart valve; R33.9 Retention of urine, unspecified

== ENCOUNTER → 2018-12-10 | Outpatient (CLI) | payer OTHER ==
[~2018-12-10] MED LIST changes: +ASPI81CH33 PO; +ATOR40TA75 PO; +ECOT81TA5 PO; +ISOVUE-370 76% 100ML VIAL (Q9967) As Ordered ONE; +LISI-542 PO; +NITR4TASL SL; +OLAN10TA2 PO; +ONDA8TAB7 PO; +PHEN-593 PO; +PLAV1TAB2 PO; +PROC10TA4 PO
--- NOTE | 2018-12-10 22:42 | REP ---
Clinical: Bladder cancer. Technique: Axial contrast enhanced images from the thoracic inlet to the upper abdomen with coronal and sagittal re-formations using 100 ml Isovue 370 intravenous contrast material. Findings: Lung beauchamp demonstrate mild respiratory motion and dependent changes without consolidation, obvious nodule, or mass lesion. No significant adenopathy. No pleural effusion. No pneumothorax. Mediastinum demonstrates atherosclerotic changes to the thoracic aorta and coronary arteries without aortic aneurysm or dissection. No cardiomegaly or pericardial effusion. Limited upper abdomen demonstrates normal bilateral adrenal glands. Musculoskeletal structures demonstrate age-related changes without focal osseous abnormality. Impression: No acute mediastinal or pleuroparenchymal process. No adenopathy. No obvious nodule or mass lesion. Electronically Signed by David Bridges MD 12/10/2018 10:34 P
== END ==
LOC: M RAD 14:13
PROVIDERS: ATTEND Internal Medicine Medical Oncology
DX: C67.9 Malignant neoplasm of bladder, unspecified (principal)
CPT/HCPCS: 71260; Q9967

== ENCOUNTER → 2018-12-18 | Outpatient (CLI) | payer OTHER ==
[~2018-12-18] VITALS: Ht 175.3 cm; Wt 77.1 kg
[~2018-12-18] MED LIST changes: -ISOVUE-370 76% 100ML VIAL (Q9967) As Ordered ONE; +LIDOCAINE 1% MDV 20ML VIAL As Ordered ONE; +MIDAZOLAM INJ 2 MG/2 ML VIAL (J2250) As Ordered ONE; +ceFAZolin 1GM INJ (J0690 PER 500MG) As Ordered ONE; +diphenhydrAMINE INJ 50MG/ML VIAL (J1200) As Ordered ONE; +fentaNYL 100 MCG/2 ML INJECTION (J3010) As Ordered ONE
--- NOTE | 2018-12-18 09:13 | IPNPDOC ---
Subjective Date Seen The patient was seen on 12/18/18. Subjective Chief Complaint/HPI bladder ca Objective Physical Examination Other physical findings pre op diagnosis: bladder ca. needs port for chemo I reviewed the H& P from less then 30 days ago and saw the patient; no significant interval change. NPO: yes no problems with sedation before ASA II [place] I KP: NO Plan: port for chemo Assessment /Plan Plan/VTE VTE Prophylaxis Ordered?: No (N/A) VS, I&O, 24H, Fishbone Vital Signs/I&O Vital Signs Date Time Temp Pulse Resp B/P (MAP) Pulse Ox O2 Delivery O2 Flow Rate FiO2 12/18/18 09:02 98.8 65 16 98 POOL FLOR MD Dec 18, 2018 09:13
--- NOTE | 2018-12-18 10:46 | ROOPDOC ---
[facility] Report Of Operation Report of Operation DATE OF PROCEDURE: 12/18/18 PREPROCEDURE DIAGNOSES: bladder ca POSTPROCEDURE DIAGNOSES: bladder ca PROCEDURE: right IJ port SURGEON: Grisel ANESTHESIA: moderate sedation ESTIMATED BLOOD LOSS: Approximately < 5 mL. COMPLICATIONS: none REMARKS: right IJ port placed. tip cavoatrial junction. port is ready to use POOL FLOR MD Dec 18, 2018 10:46
[2018-12-18 12:45] VITALS: BP 125/64
--- NOTE | 2018-12-18 14:32 | REP ---
IR Ultrasound and fluoroscopic guided port placementIR Ultrasound of the neckIR Moderate sedation Clinical Information: Bladder cancerPhysician[s]: Dr. Vallesrocedure: The patient was advised of the benefits, risks, and alternatives of the procedure and informed consent was obtained.A time out was performed with verification of the patient's name, MRN, site of procedure, and type of procedure to be performed. The patient was positioned in the supine position on the angiographic table. The site was prepped and draped in the usual sterile fashion.Moderate sedation was performed by the physician including the presence of an independent trained observer that assisted in monitoring the patient's level of consciousness and physiological status. Following the administration of Fentanyl and Versed the physician spent 45 minutes of continuous iejx-lm-[id number] time with the patient.Ultrasound of the neck reveals a patent and compressible right internal jugular vein.A corporate receptionist radiograph reveals no significant abnormality. The neck and anterior chest wall were anesthetized with lidocaine. The right internal jugular vein was accessed using a microintroducer needle via lateral approach. A 0.018 cope wire was advanced into the superior vena cava, the needle was removed and a microintroducer sheath was placed. An Amplatz wire was then passed into the inferior vena cava. Incisions at the internal jugular access site and anterior chest wall were made using a scalpel. An incision was made over the anterior chest wall. A small pocket was created using a combination of blunt and sharp dissection. A tunneler was then used to pass the catheter from the pocket to the neck puncture site. An 8 [place] [employer] smart power port was then positioned in the pocket. The catheter was then measured and cut. The microintroducer sheath was exchanged for a peel-away sheath. The catheter was passed through the peel-away sheath into the internal jugular vein, and the peel-away sheath was removed. The port was then accessed with a Horan needle. The port flushes and aspirates easily. The puncture site in the neck was closed. The chest wall incision was then closed with 2-0 Vicryl and 4-0 Monocryl. A sterile dressing was then applied.The patient tolerated the procedure well and was returned to the PRU in stable condition.EBL: < 5 mlComplications: NoneConclusion:1. Successful placement of an 8 [place] [employer] smart power injectable port via the right internal jugular vein. The port is ready for immediate use. 2. Patient to follow-up in IR clinic in 2 weeks. Thank you for this referral Electronically Signed by Dania Recinos MD 12/18/2018 02:31 P
== END ==
LOC: M IRPRO 08:14
PROVIDERS: ATTEND Radiology Diagnostic Radiology
DX: C67.9 Malignant neoplasm of bladder, unspecified (principal)
CPT/HCPCS: 36563; 76937; 77001; 99152; 99153; C1769; C1788; C1894; J0690; J1200; J2250; J3010

== ENCOUNTER → 2019-01-27 | Outpatient (POV) | payer OTHER ==
[~2019-01-27] VITALS: Ht 172.7 cm; Wt 77.3 kg
[~2019-01-27] MED LIST changes: +CHLO25TA38 PO; +FULP6INJ SC; +KEFL500C17 PO; -LIDOCAINE 1% MDV 20ML VIAL As Ordered ONE; -MIDAZOLAM INJ 2 MG/2 ML VIAL (J2250) As Ordered ONE; +ONDA8TAB10 PO; -ONDA8TAB7 PO; +PEG1POW PO; -ceFAZolin 1GM INJ (J0690 PER 500MG) As Ordered ONE; -diphenhydrAMINE INJ 50MG/ML VIAL (J1200) As Ordered ONE; -fentaNYL 100 MCG/2 ML INJECTION (J3010) As Ordered ONE; +thorazine PO
[2019-01-27 12:06] VITALS: BP 125/76
--- NOTE | 2019-01-28 11:28 | IPNPDOC ---
Text Note Date of Service The patient was seen on 01/27/19. NOTE 53 male status post right chest wall port placement for cancer and chemotherapy. Port is being used for chemotherapy without any problems. Complains of redness at the site and a visible stitch. On examination: Slight redness around the incision site. No significant tenderness. Dissolvable stitch still visible and has not resorbed yet. Neosporin is present on the site. No pamela pus like discharge. Impression: Delayed stitch dissolution post port placement. No dehiscence of the site. No systemic symptoms of infection. Patient is currently on Keflex and is encouraged to complete the course. Patient to follow-up in IR clinic next week. Thank you for this referral. POOL FLOR MD Jan 28, 2019 11:28
== END ==
LOC: M IRPOV 11:58
PROVIDERS: ATTEND Internal Medicine Medical Oncology
DX: Z45.2 Encounter for adjustment and management of vascular access device (principal); C67.9 Malignant neoplasm of bladder, unspecified; Z79.2 Long term (current) use of antibiotics

== ENCOUNTER 2019-02-09 17:15 | Emergency (ER) | payer OTHER ==
[~2019-02-09] VITALS: Ht 172.7 cm; Wt 74.4 kg
[~2019-02-09 17:15] MED LIST changes: -FULP6INJ SC; -ONDA8TAB10 PO; +ONDA8TAB7 PO; -PEG1POW PO
[2019-02-09 19:49] VITALS: BP 182/93
[2019-02-09] MEDS ORDERED: PEG1POW PO (21:18)
--- NOTE | 2019-02-10 08:21 | REP ---
Abdomen series: Three views. History: Constipation, rule out free air. Comparison chest x-ray is from November 21, 2018. Findings: There is a right-sided Czhdcj-H-Adfv catheter with its tip in the expected location of the superior vena cava. The lung beauchamp are clear on upright chest radiograph. There is no evidence of infiltrate or free subdiaphragmatic air. Heart is not enlarged. Supine and erect views of the abdomen demonstrate a normal bowel gas pattern. Psoas margins and flank stripes are intact. No mass or organomegaly is seen. There is some vascular calcification. Mild degenerative changes are seen in the lumbar spine. Impression: Negative abdominal series. No evidence of obstruction or free air. Electronically Signed by Michael Martines MD 02/10/2019 08:12 A
[2019-02-12] MEDS ORDERED: ONDA8TAB7 PO (13:08)
[2019-02-12] MEDS ORDERED: PROC10TA4 PO (13:08)
[2019-02-25] MEDS ORDERED: FULP6INJ SC (10:50)
== END 2019-02-09 21:36 | disposition home or self-care (01) ==
LOC: M ED 17:15
DX: K59.00 Constipation, unspecified (principal); K56.41 Fecal impaction; I25.10 Atherosclerotic heart disease of native coronary artery without angina pectoris; I10 Essential (primary) hypertension; E78.5 Hyperlipidemia, unspecified; K57.90 Diverticulosis of intestine, part unspecified, without perforation or abscess without bleeding; Z85.51 Personal history of malignant neoplasm of bladder; Z79.899 Other long term (current) drug therapy; Z79.82 Long term (current) use of aspirin; Z87.891 Personal history of nicotine dependence

== ENCOUNTER → 2019-09-22 | Outpatient (CLI) | payer OTHER ==
[~2019-09-22] MED LIST changes: +FULP6INJ SC; +ISOVUE-370 76% 100ML VIAL As Ordered ONE; +ONDA8TAB10 PO; -ONDA8TAB7 PO; +PEG1POW PO
--- NOTE | 2019-09-25 13:59 | REP ---
REASON: History of carcinoma of the bladder. Followup examination. All priors were reviewed, the latest 12/10/2018. CONTRAST: 100 mL Isovue-370. There is no mediastinal or left hilar adenopathy. There is a mildly enlarged 1.1-cm sized right hilar lymph node, which is stable. There are no pleural or pericardial effusions. The imaged osseous structures are stable and intact. Evaluation of the lung beauchamp shows emphysematous changes and biapical pleuroparenchymal scarring, status quo. In the right middle lobe, there is a new 5-mm sized nodule. No additional new abnormal nodules, masses, or opacities have developed. There is mild cylindrical bronchiectasis seen in the lung bases. IMPRESSION: 1. There is a new 5-mm sized nodule in the right middle lobe. According to the revised Fleischner Society criteria, this represents a category 3 for which a 6-month followup is recommended. 2. There are chronic lung field changes, as described above. Electronically Signed by Rickey Kim DO 09/25/2019 02:58 P
--- NOTE | 2019-09-28 10:41 | REP ---
REASON: History of bladder carcinoma. Patient is status post ureterostomy. All priors were reviewed, the latest 11/21/2018, a preoperative exam. CONTRAST TODAY: 100 mL Isovue-370. The liver, gallbladder, spleen, pancreas, adrenal glands, and kidneys are essentially unchanged and again seen to be within normal limits. Bilateral extrarenal pelvis is noted, status quo. The abdominal aorta is within normal limits for the patient's age. Calcific atherosclerotic change is noted, status quo. In the left para-aortic region, there is a mildly enlarged 1.3-cm sized lymph node, which has increased in size. Other smaller para-aortic lymph nodes are noted, status quo. Postoperative changes are seen in the right lower quadrant consistent with ureterostomy procedure. No free fluid or free air is seen in the abdomen. The bowel loops and the mesenteries are within normal limits. CT PELVIS: There is sigmoid colon diverticulosis, status quo. There is no free fluid or free air. There is no pelvic mass or adenopathy. The patient is status post cystectomy. Bone window technique throughout the exam shows no significant changes from the prior exam. Spinal degenerative changes are noted, status quo. IMPRESSION: 1. There is a mildly enlarged left para-aortic lymph node, as described above. Followup is recommended. 2. Status post ureterostomy and cystectomy. There is no evidence of acute intra-abdominal or intrapelvic disease. Findings as described above. Electronically Signed by Rickey Kim DO 09/28/2019 02:00 P
== END ==
LOC: M RAD 12:43
DX: C67.3 Malignant 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bladder (principal); R91.1 Solitary pulmonary nodule; R59.0 Localized enlarged lymph nodes; Z93.6 Other artificial openings of urinary tract status; Z90.6 Acquired absence of other parts of urinary tract
CPT/HCPCS: 71260; 74177; Q9967

== ENCOUNTER → 2020-03-11 | Outpatient (CLI) | payer OTHER ==
[~2020-03-11] MED LIST changes: +GASTROGRAFIN SOLUTION 30ML (Q9963) As Ordered ONE; +KEYT1INJ IV
--- NOTE | 2020-03-16 07:37 | REP ---
CT OF THE CHEST WITH CONTRAST CONTRAST UTILIZED: 100 cc Isovue-370. REASON FOR EXAM: Follow up right middle lobe nodule. Patient also has a history of carcinoma of the bladder. COMPARISON: All prior CT examinations of the chest have been reviewed, the latest of which is dated 09/22/2019. FINDINGS: The mediastinum and pulmonary jina are stable. Note is again made of a borderline right hilar lymph node status quo. There are no pleural or pericardial effusions. There is no evidence of significant change seen involving the imaged upper abdomen. Bone window technique throughout the examination shows a new 5 mm sized sclerotic lesion in T10 vertebral body. Evaluation of the lung beauchamp shows the right middle lobe nodule to be stable. There are no new abnormal nodules, masses, or opacities. There is stable biapical pleural parenchymal scarring and emphysematous change. There is bibasilar subsegmental atelectatic change status quo. There is cylindrical bronchiectasis which is unchanged. IMPRESSION: * Stable right middle lobe nodule. According to the revised Fleischner Society criteria, this nodule represents a category [address] screening is recommended or sooner depending on the patient's history and/or necessary follow up from the diagnosis of bladder carcinoma. * Other stable lung field changes for which there is no revised Fleischner Society criteria on the recommendation for follow up. Those changes should be followed up based on clinical assessment. * There is a new sclerotic density in the T10 vertebral body which could potentially represent a new blastic lesion. Follow up for that is recommended. Consider further evaluation with pre and post gadolinium enhanced MRI. MTDD
--- NOTE | 2020-03-16 07:37 | REP ---
CT ABDOMEN AND PELVIS AFTER ADMINISTRATION OF ORAL BOWEL PREPATORY CONTRAST AND INTRAVENOUS CONTRAST. INTRAVENOUS CONTRAST UTILIZED: 100 mL Isovue-370 370. COMPARISON: Multiple the last 09/22/2019. REASON FOR EXAM: Follow-up bladder carcinoma. FINDINGS: The liver, gallbladder, spleen, pancreas, adrenal glands, and kidneys are again seen to be within normal limits. Note is again made of an extrarenal pelvis bilaterally. The bowel loops and their mesenteries are essentially unchanged and again seen to be within normal limits. There is an unchanged 1.3 cm size left periaortic lymph node. There is no free fluid or free air. The ureterostomy site is unchanged. The patient is status post cystectomy. There is no free fluid or free air. No mass or adenopathy has developed. Bone window technique showed the examination again shows a sclerotic lesion in the T10 vertebral body. Please see the CT report made the same day. IMPRESSION: * No evidence of acute disease or significant change when compared to the prior exam. * There is a T10 vertebral body lesion better described in the CT report made same day. Please review that report and recommendation for follow-up of that new lesion. MTDD
== END ==
LOC: M RAD 07:35
DX: C67.3 Malignant 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bladder (principal); R91.1 Solitary pulmonary nodule; M89.9 Disorder of bone, unspecified
CPT/HCPCS: 71260; 74177; Q9963; Q9967

== ENCOUNTER → 2020-03-30 | Outpatient (CLI) | payer OTHER ==
[~2020-03-30] MED LIST changes: -GASTROGRAFIN SOLUTION 30ML (Q9963) As Ordered ONE; -ISOVUE-370 76% 100ML VIAL As Ordered ONE; +PROHANCE 279.3MG/ML 15ML VIAL As Ordered ONE
--- NOTE | 2020-03-31 08:19 | REP ---
INDICATION: MALIGNANT LESION ANTERIOR BLADDER WALL PER CT SCAN. New focus of sclerosis in the 10 T10 vertebral body on recent CT study. COMPARISON: Comparison CT studies of the chest March 11, 2020 and September 22, 2019.. TECHNIQUE: Sagittal and axial T1 and T2-weighted scans are acquired in the usual fashion with and without fat saturation. Sequences include spin echo, turbo spin-echo, and STIR imaging sequences. The patient declined intravenous gadolinium. FINDINGS: Thoracic vertebral body heights are preserved. Alignment is normal. No neural foraminal lesion is seen. No cord compressive lesion is seen. Sagittal T1-T2 and STIR images confirm the presence of a focal abnormality in the posterior aspect of the T10 vertebral body corresponding to the area of sclerosis seen on recent CT study. The sclerotic area on CT corresponds to a 7 mm focus in the lesion characterized by low T1 and low T2 signal intensity on all 3 sequences. Surrounding this, the inversion recovery sequence shows a rim of edema. Including the edema, the lesion is 13 mm in greatest diameter. The lesion is indeterminate. It is not typical of benign hemangioma. The rim of edema surrounding the lesion on STIR images is not characteristic of benign bone island. I cannot exclude a solitary sclerotic metastatic focus. No other suspicious lesion is seen. There is multilevel degenerative disc disease. No cord compressive lesion is seen. No intramedullary lesion is observed. Tip of the conus medullaris is normal in appearance and position at T12. There are multiple small focal disc protrusions seen on sagittal and axial T2 weighted scans including small disc protrusions on the right at T2-3, on the right at T5-6, to the right of midline it at T6-7, and on the left at T7-8. There is a broad-based disc bulge to the right of midline at T8-9. No extra vertebral abnormality is observed. IMPRESSION: 13 mm indeterminate lesion in the posterior aspect of the T10 vertebral body. There is a rim of edema on STIR images surrounding the sclerotic lesion seen on recent CT study. Metastatic lesion is not excluded. Consider radionuclide bone scan to exclude other sites of bony involvement. Consider prostate specific antigen screening. Follow-up MRI scan suggested in 4-6 months. Multilevel degenerative disc disease is also seen. <Electronically signed by Nain Martines > 03/31/20 [id number]
== END | disposition home or self-care (01) ==
LOC: M RAD 17:36
DX: C67.3 Malignant 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bladder (principal)
CPT/HCPCS: 72146; A9576

== ENCOUNTER → 2020-04-03 | Outpatient (CLI) | payer OTHER ==
[~2020-04-03] MED LIST changes: -PROHANCE 279.3MG/ML 15ML VIAL As Ordered ONE
== END ==
LOC: M LABSMTC 09:03
PROVIDERS: ATTEND Anesthesiology
DX: Z01.812 Encounter for preprocedural laboratory examination (principal); Z20.828 Contact with and (suspected) exposure to other viral communicable diseases
CPT/HCPCS: C9803; U0003

== ENCOUNTER 2020-04-08 07:40 | Day surgery (SDC) | payer OTHER ==
[~2020-04-08] VITALS: Ht 175.3 cm; Wt 78.2 kg
[~2020-04-08 07:40] MED LIST changes: +NS 1,000 ML IV ONE
[2020-04-08] MEDS ORDERED: propofoL 200 MG/20 ML VIAL As Ordered ONE ×2 (08:18→09:20)
[2020-04-08] MEDS ORDERED: LIDOCAINE 2% 100MG/5ML SDV (FOR ANES.) As Ordered ONE (08:19)
--- NOTE | 2020-04-08 09:41 | ROOR ---
Patient Name: Tani Banres Procedure Date: 04/08/2020 8:51 AM Date of : 1965 Age: 54 Room: [facility] Gender: Male Note Status: Finalized Procedure: Colonoscopy Indications: Abnormal CT of the GI tract Providers: Robinson Servin MD Referring MD: Cynthia Moody Md Requesting Provider: Medicines: Monitored Anesthesia Care Complications: No immediate complications. Procedure: Pre-Anesthesia Assessment: - Prior to the procedure, a History and Physical was performed, and patient medications and allergies were reviewed. The patient is competent. The risks and benefits of the procedure and the sedation options and risks were discussed with the patient. All questions were answered and informed consent was obtained. Patient identification and proposed procedure were verified by the physician, the nurse and the anesthesiologist in the procedure room. Mental Status Examination: alert and oriented. Airway Examination: normal oropharyngeal airway and neck mobility. Prophylactic Antibiotics: The patient does not require prophylactic antibiotics. Prior Anticoagulants: The patient has taken no previous anticoagulant or antiplatelet agents. ASA Grade Assessment: II - A patient with mild systemic disease. After reviewing the risks and benefits, the patient was deemed in satisfactory condition to undergo the procedure. The anesthesia plan was to use monitored anesthesia care (MAC). Immediately prior to administration of medications, the patient was re-assessed for adequacy to receive sedatives. The heart rate, respiratory rate, oxygen saturations, blood pressure, adequacy of pulmonary ventilation, and response to care were monitored throughout the procedure. The physical status of the patient was re-assessed after the procedure. The Colonoscope was introduced through the anus and advanced to the cecum, identified by appendiceal orifice and ileocecal valve. The colonoscopy was performed without difficulty. The patient tolerated the procedure well. The quality of the bowel preparation was good. The ileocecal valve, appendiceal orifice, and rectum were photographed. Scope insertion time was 5 minutes. Scope withdrawal time was 9 minutes. The total duration of the procedure was 14 minutes. Findings: The perianal and digital rectal examinations were normal. Four sessile polyps were found in the recto-sigmoid colon. The polyps were 7 to 10 mm in size. These polyps were removed with a cold snare. Resection and retrieval were complete. Verification of patient identification for the specimen was done by the physician and nurse using the patient's name, date and medical record number. Estimated blood loss was minimal. Multiple small and large-mouthed diverticula were found in the sigmoid colon. There was evidence of diverticular spasm. There was no evidence of diverticular bleeding. Non-bleeding external and internal hemorrhoids were found during retroflexion. The hemorrhoids were medium-sized. Impression: - Four 7 to 10 mm polyps at the recto-sigmoid colon, removed with a cold snare. Resected and retrieved. - Severe diverticulosis in the sigmoid colon. There was evidence of diverticular spasm. There was no evidence of diverticular bleeding. - Non-bleeding external and internal hemorrhoids. Recommendation: - Patient has a contact number available for emergencies. The signs and symptoms of potential delayed complications were discussed with the patient. Return to normal activities tomorrow. Written discharge instructions were provided to the patient. - High fiber diet. - Continue present medications. - Use fiber, for example Citrucel, Fibercon, Konsyl or Metamucil. - Await pathology results. - Repeat colonoscopy in 3 - 5 years for surveillance based on pathology results and for surveillance of multiple polyps. - Telephone GI clinic for pathology results in 2 weeks. - Return to primary care physician. Robinson Servin MD Robinson Servin MD 04/08/2020 9:41:20 AM Electronically signed by Robinson Servin MD Number of Addenda: 0 Note Initiated On: 04/08/2020 8:51 AM Estimated Blood Loss: Estimated blood loss was minimal.
[2020-04-08 09:50] VITALS: BP 103/71
== END 2020-04-08 10:01 | disposition home or self-care (01) ==
LOC: M OPP 07:40
PROVIDERS: ATTEND Internal Medicine Gastroenterology
DX: K63.5 Polyp of colon (principal); K57.30 Diverticulosis of large intestine without perforation or abscess without bleeding; K64.8 Other hemorrhoids; R93.3 Abnormal findings on diagnostic imaging of other parts of digestive tract; I51.9 Heart disease, unspecified; Z79.82 Long term (current) use of aspirin; Z79.899 Other long term (current) drug therapy; Z95.5 Presence of coronary angioplasty implant and graft

== ENCOUNTER → 2020-06-07 | Outpatient (CLI) | payer OTHER ==
[~2020-06-07] MED LIST changes: +ISOVUE-370 76% 100ML VIAL As Ordered ONE; -NS 1,000 ML IV ONE; -PHEN-593 PO; +PHEN1TAB73 PO
--- NOTE | 2020-06-07 10:18 | REP ---
INDICATION: BLADDER CA COMPARISON: None TECHNIQUE: Axial contrast enhanced images from the thoracic inlet to the upper abdomen with coronal and sagittal reformations using 100 ml Isovue 370 intravenous contrast material[address] CT examination was performed using the following dose reduction techniques: Automated exposure control, adjustment of mA and/or kv according to the patient's size, and use of iterative reconstruction technique. FINDINGS: The 5 mm pulmonary nodule in the right middle lobe remains stable and the right hilar lymph node measuring approximately 14 mm also remains stable. The lung beauchamp are otherwise clear and without acute consolidation, new suspicious nodule or mass lesion. Minimal biapical scarring is again noted and unchanged. No effusion. No pneumothorax. There is evidence for acute pulmonary embolus in the 2nd/3rd order pulmonary artery extending to the right lower lobe (series 201; images 66-72). Mediastinum demonstrates stable atherosclerotic changes to the thoracic aorta and coronary arteries without aortic aneurysm or dissection. No cardiomegaly or pericardial effusion. Musculoskeletal structures demonstrate increased sclerotic focus in the T10 vertebral body suspicious for metastatic disease along with few scattered smaller sclerotic foci at T11 and T5. IMPRESSION: 1. Small pulmonary emboli in the 2nd/3rd order right lower lobe pulmonary artery. 2. Stable 5 mm nodule in the right middle lobe and stable right hilar lymph node. 3. Increased sclerotic changes in the T10 vertebral body suspicious for osseous metastatic disease. <Electronically signed by David Bridges > 06/07/20 [id number]
--- NOTE | 2020-06-07 10:27 | REP ---
INDICATION: BLADDER CA. COMPARISON: 03/11/2020 TECHNIQUE: Axial contrast-enhanced images from the lung bases to the pubic symphysis using 100 cc Isovue 370 intravenous contrast material. Coronal and sagittal reformations obtained along with delayed images of the abdomen. This CT examination was performed using the following dose reduction techniques: Automated exposure control, adjustment of mA and/or kv according to the patient's size, and the use of iterative reconstruction technique. FINDINGS: Liver, spleen, pancreas, gallbladder, bilateral adrenal glands and kidneys appear normal/stable. Left extrarenal pelvis again noted. Patient is noted to be status post bladder resection and ileal conduit formation with urostomy via the right anterior abdominal wall. There is no evidence for perinephric stranding or hydroureteronephrosis. Small and large bowel is without obstruction or acute inflammatory process. Mild mucosal thickening of the sigmoid colon along with diverticulosis is a nonspecific finding and without acute inflammatory stranding to suggest an acute infectious/inflammatory process. Findings may be related to prior radiation therapy and should be correlated clinically. Further evaluation of the pelvis demonstrates the patient to be status post bladder resection and prostatectomy. No pelvic fluid or obvious pelvic sidewall adenopathy and no obvious focal recurrence is identified within the pelvis. Mildly prominent but lateral inguinal lymph nodes and retrocaval/para-aortic retroperitoneal lymph nodes are identified. The retrocaval lymph nodes just below the level of the renal veins are visibly increased in size measuring up to approximately 14 mm which previously measured 8 mm (series 205; image 55). Skeletal structures demonstrate nonspecific degenerative changes. Sclerotic changes in the T10 vertebral body have obviously increased and are suspicious for osseous metastasis. Smaller ill-defined areas of sclerosis in multiple vertebral bodies are nonspecific. IMPRESSION: 1. No evidence for focal recurrence within the pelvis. However, multiple retroperitoneal/pericaval and periaortic lymph nodes have increased in size from prior examination and the sclerotic lesion in the T10 vertebral body is obviously increased. Findings are suspicious for metastatic disease. <Electronically signed by David Bridges > 06/07/20 1024
== END ==
LOC: M RAD 09:12
DX: C67.3 Malignant 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bladder (principal); R91.8 Other nonspecific abnormal finding of lung field; I26.99 Other pulmonary embolism without acute cor pulmonale
CPT/HCPCS: 71260; 74177; Q9967

== ENCOUNTER → 2020-06-21 | Outpatient (REF) | payer OTHER ==
[~2020-06-21] MED LIST changes: -ISOVUE-370 76% 100ML VIAL As Ordered ONE; -LISI-542 PO; +LISI-898 PO
== END ==
LOC: M SMT 17:01
PROVIDERS: ATTEND Urology
DX: C67.9 Malignant neoplasm of bladder, unspecified (principal)

== ENCOUNTER → 2020-07-11 | Outpatient (CLI) | payer OTHER ==
[~2020-07-11] MED LIST changes: +PROHANCE 279.3MG/ML 15ML VIAL As Ordered ONE
--- NOTE | 2020-07-11 12:15 | REPVR ---
PROCEDURE INFORMATION: Exam: MR Thoracic Spine Without and With Contrast Exam date and time: 07/11/2020 9:20 AM Age: 54 years old Clinical indication: Condition or disease; Other: Evaluate t10; Additional info: Bladder CA TECHNIQUE: Imaging protocol: Multiplanar magnetic resonance images of the thoracic spine without and with contrast. Contrast material: PROHANCE; Contrast volume: 15 ml; Contrast route: INTRAVENOUS (IV); COMPARISON: MRI-Spine,Thoracic without con 03/30/2020 6:35 PM FINDINGS: Vertebrae: T1 hypointense, STIR hyperintense, enhancing lesions consistent with osseous metastases. In particular, large lesion in posterior T10 measuring approximately 2.4 x 2.1 cm (previously 1.3 cm). There are new, smaller metastases in the T2 and T5 vertebral bodies. New, small lesions in the left T7 pedicle as well as left T10 superior articular facet. Suspect a new tiny lesion in the right T12 pedicle. A T2 hemangioma is noted, stable. Anatomic alignment. No acute fracture seen. Epidural space: No compressive epidural tumor identified in the spinal canal. Spinal cord: Normal signal. No cord compression. Discs/Spinal canal/Neural foramina: Mild disc height loss and spondylosis from T5-6 through T8-9. Elsewhere, mild prevertebral spondylosis without disc height loss. At T5-6, small right paracentral disc protrusion does not contribute to central spinal canal stenosis. At T6-7, small right paracentral disc protrusion does not contribute to central spinal canal stenosis. At T7-8, broad-based left paracentral disc protrusion does not contribute to central spinal canal stenosis. At T8-9, broad-based central disc protrusion does not contribute to central spinal canal stenosis. The thoracic central spinal canal is patent at all levels. Soft tissues: Unremarkable. IMPRESSION: Findings consistent with osseous metastatic disease most notably involving T10 (progressive since prior) with new small osseous metastases elsewhere. No compressive epidural tumor identified in the spinal canal. No evidence of pathologic compression fracture. Electronically signed by: Greta Recinos On 07/11/2020 12:15:19 PM
== END ==
LOC: M RAD 07:17
PROVIDERS: ATTEND Physician Assistant
DX: C79.51 Secondary malignant neoplasm of bone (principal); C67.3 Malignant 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bladder
CPT/HCPCS: 72157; A9576

== ENCOUNTER → 2020-08-15 | Outpatient (CLI) | payer OTHER ==
[~2020-08-15] MED LIST changes: -PEG1POW PO; +POLY17PO18 PO; -PROHANCE 279.3MG/ML 15ML VIAL As Ordered ONE
--- NOTE | 2020-08-15 13:41 | REP ---
INDICATION: MONITORING BLADDER CANCER. COMPARISON: Comparison CT study chest abdomen pelvis 07 June 2020. Comparison MRI T-spine July 11, 2020.. TECHNIQUE: Forty-eight minutes following the intravenous injection of a 17.70 mCi dose of F-18 FDG, three-dimensional PET scintigraphy is acquired from the skull base to the proximal thighs. Triplanar noncontrast CT scanning is acquired through the same anatomic range for attenuation correction, and image registration with scan parameters optimized to minimize radiation exposure to the patient. PET scintigraphy and CT datasets were fused and displayed on a workstation with multiplanar and projection display capability. FINDINGS: Head and neck soft tissues are unremarkable. There is a right-sided Fjbyky-L-Vsda catheter. There are hypermetabolic job foci in the subcarinal, right hilar, and left infrahilar region. Maximum SUV value in the subcarinal node is 8.51. SUV value in the right hilar focus of increased uptake is 4.51 and that in the left inferior hilus 6.85. There is equivocal uptake in a 1 cm pre carinal lymph node, SUV 2.77. The subcarinal lymph node measures 15 mm in short axis dimension. There is hypermetabolic celiac axis lymphadenopathy, maximum SUV value 8.88 in a lymph node measuring 2.3 x 2.0 cm. There is aortocaval and left periaortic hypermetabolic lymphadenopathy. Maximum standard uptake value in these lymph nodes ranges up to 6.68. There is an equivocal focus adjacent to the rectosigmoid colon which is probably bowel as no definite job mass is seen. Lastly, there are metastatic skeletal foci of hypermetabolic uptake. There is a small area of increased uptake in the left iliac bone just above the left acetabulum with maximum standard uptake value 3.38. There are 2 small hypermetabolic lesions in the L5 vertebral body to the left of midline, maximum SUV value 5.95 in the vertebral body and 4.88 in the left transverse process. There is mildly increased FDG accumulation in the known lesion at the T10 vertebral body level, maximum standard uptake value 3.57. Lastly there is a hypermetabolic lesion in the medial and of the left clavicle where maximum standard uptake value is 3.61. IMPRESSION: Hypermetabolic metastatic job uptake in the at retroperitoneum, celiac axis region, mediastinum and hilar regions bilaterally. There are also skeletal metastatic lesions. <Electronically signed by Nain Martines > 08/15/20 1122
== END ==
LOC: M PLARAD 08:20
DX: C67.3 Malignant 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bladder (principal)

== ENCOUNTER → 2020-09-15 | Outpatient (CLI) | payer OTHER ==
[~2020-09-15] MED LIST changes: +BACL10TA2 PO
== END ==
LOC: M ONCR 08:53
PROVIDERS: ATTEND Radiology Radiation Oncology
DX: C67.9 Malignant neoplasm of bladder, unspecified (principal)

== ENCOUNTER 2020-09-26 08:02 | Outpatient (RCR) | payer OTHER | END 2020-09-30 | LOC: M ONCR 08:02 | PROVIDERS: ATTEND General Practice | DX: C79.51 Secondary malignant neoplasm of bone (principal) ==

== ENCOUNTER 2020-10-14 09:19 | Outpatient (RCR) | payer OTHER | END 2020-10-31 | LOC: M ONCR 09:19 | PROVIDERS: ATTEND General Practice | DX: C79.51 Secondary malignant neoplasm of bone (principal); C67.9 Malignant neoplasm of bladder, unspecified ==

== ENCOUNTER → 2021-02-15 | Outpatient (CLI) | payer OTHER ==
[~2021-02-15] MED LIST changes: +ISOVUE-370 76% 100ML VIAL As Ordered ONE; -OLAN10TA2 PO; +OLAN1TAB20 PO
== END ==
LOC: M RAD 13:23
DX: C67.3 Malignant 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bladder (principal)

== ENCOUNTER 2021-04-22 21:45 | Inpatient (IN) | payer OTHER ==
[~2021-04-22] VITALS: Ht 172.7 cm; Wt 70.6 kg
[~2021-04-22 21:45] MED LIST changes: -ISOVUE-370 76% 100ML VIAL As Ordered ONE
--- OUTSIDE RECORDS SUMMARY | 2021-04-22 21:53 | CCD | Continuity of Care Document ---
Author Author Tani SHARMA DO Organization Unknown Address [address] [address] Phone [phone] Care Team Providers Care Per Diem Name Role Phone James Sharma DO AUTM [phone] Problems Active Problems Provider Date History of total cystectomy James Sharma DO Onset: 0 01/25/2021 Coronary arteriosclerosis James Sharma DO Onset: Pterygium James Sharma DO Onset: Malignant tumor of urinary bladder James Sharma DO O nset: 01/25/2021 Social History Type Date Description Comments Sex Unknown ETOH Use Currently consumes alcohol 2-3 d rinks a week Tobacco Use Start: Unknown End: Unknown Patient is a former smoker Smoked 1 pack a day for 30 years. Quit smoking in 2019. Allergies, Adverse Reactions, Alerts Description No Known Drug Allergies Medications Active Medications SIG Qnty Indications Ordering Provide r Date Atorvastatin Calcium 40mg Tablets 1 by mouth every day 90tabs James Sharma DO 01/26/20 21 Lisinopril 5mg Tablets 1 by mouth every day 30tabs James Sharma DO 01/26/20 21 Aspirin 81 Low Dose 81mg Chewtabs 1 by mouth every day James Sharma DO 01/26/20 21 Calcium + D3 [id number] Tablet s every day James Sharma DO 01/26/20 21 Immunizations Description No Information Available Vital Signs Date Vital Result Comment 01/25/2021 10:59am BP Systolic 122 mmHg BP Diastolic 78 mmHg Heart Rate 96 /min Height 68 inches 5'8" Weight 168.00 lb O2 % BldC Oximetry 98 % BMI (Body Mass Index) 25.5 kg/m2 Results Test Acquired Date Facility Test Result H/L Range Note Comprehensive Chem Profile 01/25/2021 [facility], [place]: [place] [address] [phone] Glucose 89 mg/dL 74 - 99 1 BUN 28 mg/dL High 7 - 18 Creatinine 1.4 mg/dL High 0.6 - 1.3 Sodium 141 mEq/L 136 - 145 Potassium 4.8 mEq/L 3.5 - 5.1 Chloride 107 mEq/L 98 - 107 Carbon Dioxide 27 mEq/L 21 - 32 Calcium 8.9 mg/dL 8.5 - 10.1 Alk. Phosphatase 92 mg/dL 46 - 116 Total Bilirubin 0.5 mg/dL 0.2 - 1.0 Ast (Sgot) 25 U/L 15 - 37 Alt (SGPT) 41 U/L 12 - 78 Albumin 3.7 g/dL 3.4 - 5.0 Total Protein 6.8 g/dL 6.4 - 8.2 A/G Ratio 1.19 CALC 1.00 - 1.90 GFR 53 mL/min Low >60 GFR >= 60 mL/min >60 2 Lipid Profile 01/25/2021 [facility] , [place]: [place] [address] [phone] Cholesterol 171 mg/dL 131 - 200 Triglycerides 58 mg/dL 30 - 150 HDL Cholesterol 58 mg/dL 35 - 60 LDL (Calculated) 101 CALC 50 - 159 A1c 01/25/2021 [facility] , [place]: [place] [address] [phone] Hba1c 5.8 % High <5.7 3 Est Avg Glucose 120 mg/dL High 60 - 110 1 100-125 mg/dL PRE-DIABET ES/FASTING >126 mg/dL DIABETES/FASTING 2 CHRONIC KIDNEY DISEASE STAGI NG PER NKF STAGE I & II GFR >= 60 NORMAL TO MILDLY DECREASED STAGE III GFR 30-59 MODERATELY DECREASED STAGE IV GFR 15-29 SEVERELY DECREASED STAGE V GFR <15 VERY LITTLE GFR LEFT ESRD GFR <15 ON HISTOPATHOLOGY TECHNICIAN 3 Lab Result Notes: Pre-Diabetes 5.7 - 6.4 % Diabetes = or > 6.5% Procedures Description No Information Available Medical Devices Description No Information Available Encounters Description No Information Available Assessments Date Code Description Provider 01/25/2021 I25.10 Coronary arteriosclerosis Shimon Sharma, 01/25/2021 C67.9 Carcinoma of bladder James Sharma, 01/25/2021 H11.002 Pterygium Shimonnichelle Keisha queen, DO 01/25/2021 L98.9 Skin lesion Shimonnichelle Marietta bret, DO 01/25/2021 Z00.00 Encounter for genera l adult medical examination without abnormal findings James Sharma, 01/25/2021 Z90.6 History of total cystectomy Chri ubaldo Sharma DO Plan of Treatment Future Appointment(s):* 04/24/2021 8:00 am - James Sharma DO at [facility] 01/25/2021 - James Sharma DO* I25.10 Coronary arteriosclerosis* Comments:* Asymptomatic at this time, compliant with ASA and statin and lisinopril. No beta michael. Followed by cardiology. BP well controlled today. Will check lipids today, otherwise he is active, healthy weight and eats generally well balanced diet. * C67.9 Carcinoma of bladder* Comments:* Sounds to have been metastatic, but patient doing well at this time s/p systemic chemo with reported improvement in serial CT. Will review prior records and follow up with patient in 3 months to continue to establish care. * H11.002 Pterygium* Comments:* Asymptomatic, discussed importance of eye protection. Referral to ophtho. * L98.9 Skin lesion* Comments:* Concerning for BCC, given location will refer to dermatology. * Z00.00 Encounter for general adult medical examination without abnormal findings* Comments:* Reports UTD on colonoscopy. Would qualify for LDCT for lung Ca screen, but I imagine he has had multiple CT chests in the past given cancer history. * Z90.6 History of total cystectomy* Comments:* Stable stoma and ostomy bag, followed by urology and ostomy nurse. * All * New Medication:* Atorvastatin Calcium 40 mg - 1 by mouth every day * Lisinopril 5 mg - 1 by mouth every day * Aspirin 81 Low Dose 81 mg - 1 by mouth every day * Calcium + D3 600-800 mg-Unit - every day Functional Status Description No Information Available Mental Status Description No Information Available Referrals Description No Information Available
--- OUTSIDE RECORDS SUMMARY | 2021-04-22 21:53 | CCD | Continuity of Care Document ---
Author Author Tani SHARMA DO Organization Unknown Address [address] [address] Phone [phone] Care Team Providers Care Program Clinician Name Role Phone James Sharma DO AUTM [phone] Problems Active Problems Provider Date History of [...] for 30 years. Quit smoking in 2019. Allergies and adverse reactions Description No Known Drug Allergies Medications Active Medications SIG Qnty Indications Ordering Provide r Date Atorvastatin Calcium 40mg Tablets 1 by mouth every day 90tabs James Sharma DO 01/26/20 21 Lisinopril 5mg Tablets 1 by mouth every day 30tabs James Sharma DO 01/26/20 21 Aspirin 81 Low Dose 81mg Chewtabs 1 by mouth every day James Sharma DO 01/26/20 21 Calcium + D3 [id number] Tablet s every day James Sharma DO [...] H/L Range Note Comprehensive Chem Profile 01/25/2021 [facility], [place]: Dr [place] [address] [phone] Glucose 89 mg/dL 74 - 99 1 [...] 60 mL/min >60 2 Lipid Profile 01/25/2021 [facility] [place]: [place] [address] [phone] Cholesterol 171 mg/dL 131 - 200 Triglycerides 58 mg/dL 30 - 150 HDL Cholesterol 58 mg/dL 35 - 60 LDL (Calculated) 101 CALC 50 - 159 A1c 01/25/2021 [facility] [place]: Dr [place] [address] [phone] Hba1c 5.8 % High <5.7 3 Est [...] LITTLE GFR LEFT ESRD GFR <15 ON DATA SCIENTIST 3 Lab Result Notes: Pre-Diabetes 5.7 - 6.4 % Diabetes = or > 6.5% Procedures Date Code Description Status 01/25/2021 21601 Preventative Medicine (40-64Yrs) Completed 01/25/2021 93144 EKG/Interpretation & Report Comp leted Medical Devices Description No Information Available Encounters Type Date Location Provider Dx Diagnosis Office Visit 01/25/2021 11:00a [facility] 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 Z13.220 Encounter for screening for lipoid disorders Assessments Date Code Description Provider 01/25/2021 Z00.00 Encounter for genera l adult medical examination without abnormal findings James Sharma DO 01/25/2021 I25.10 Coronary arteriosclerosis Shimon Sharma, 01/25/2021 C67.9 Carcinoma of bladder James Sharma, DO 01/25/2021 H11.002 Pterygium James Valdes ogg, DO 01/25/2021 L98.9 Skin lesion James Valdes oghubert, DO 01/25/2021 Z90.6 History of total cystectomy Rebekah Sharma, 01/25/2021 Z13.220 Encounter for screening for lipo id disorders James Sharma DO Plan of Treatment Future Appointment(s):* 04/24/2021 8:00 am - James Sharma DO at [facility] 01/25/2021 - James Sharma DO* Z00.00 Encounter for general adult medical examination without abnormal findings* Comments:* Reports UTD on colonoscopy. Would qualify for LDCT for lung Ca screen, but I imagine he has had multiple CT chests in the past given cancer history. * I25.10 Coronary arteriosclerosis* Comments:* Asymptomatic at this [...] given location will refer to dermatology. * Z90.6 History of total cystectomy* Comments:* Stable stoma and ostomy bag, followed by urology and ostomy nurse. * Z13.220 Encounter for screening for lipoid disorders * All * New Medication:* Atorvastatin Calcium 40 mg - 1 by mouth every day * Lisinopril 5 mg - 1 by mouth every day * Aspirin 81 Low Dose 81 mg - 1 by mouth every day * Calcium + D3 600-800 mg-Unit - every day Functional Status Description No Information Available Mental Status Description No Information Available Referrals Refer to Reason for Referral Status Appt Date [facility] WET WASH ASSEMBLER CONSULT FOR LESION RT C HEEK Created [address] [place] [address], [address] [place] [address] [phone] Josephine Fowler NP REFERRAL FOR RIGHT CHEEK BCC Patient Decli yvette [facility] [place], [place] [phone] Vicente Rodriguez MD REFERRAL FOR LEFT EYE PTERYGIUM Created [facility] [address] [facility], [address] [facility] [address] [phone]
--- OUTSIDE RECORDS SUMMARY | 2021-04-22 21:53 | CCD | Summary of Care ---
Author Author [facility] Address Unknown Phone Unavailable Care Team Providers Care Taping Supervisor Name Role Phone Justine Johnson SENIOR SYSTEMS ARCHITECT PCP Reason for Visit * Reason Comments Results Follow-up Encounter Details Care Team Description Date Type Department Cynthia Moody MD [address] [place], [place] [id number] 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u rinary bladder (Primary Dx); Anemia associated with chemotherapy 01/06/2021 Office Visit Hematology Oncology [address] [place] [id number] Allergies No Known Active Allergiesdocumented as of this encounter (statuses as of 02/17/2021) Medications End Date Status Medication Sig Dispensed Refills Start Date Active atorvastatin (LIPITOR) 40 Take 40 mg by 0 201 MG tablet mouth every 9 morning Active lisinopril Take 5 mg by 0 (PRINIVIL,ZESTRIL) 5 MG mouth every 9 tablet morning Active aspirin (ASPIRIN LOW Chew 81 mg by 0 DOSE) 81 MG chewable Mouth every 7 tablet morning Active Prochlorperazine Maleate Take 1 tablet 30 tablet 1 10 MG Oral Tablet by mouth 1 (COMPAZINE)Indications: every 6 (six) Malignant neoplasm of hours as anterior wall of urinary needed bladder (Nausea/Vomit ing) Active Ondansetron HCl 8 MG Oral Take 1 tablet 20 tablet 1 Tablet by mouth 1 (ZOFRAN)Indications: every 8 Malignant neoplasm of (eight) hours anterior wall of urinary as needed bladder for Nausea or Vomiting Active Nitroglycerin 0.[address] 1 90 tablet 0 12/23 Sublingual Tablet tablet under 1 Sublingual (NITROSTAT) the tongue every 5 (five) minutes as needed for Chest pain documented as of this encounter (statuses as of 02/17/2021) Active Problems Problem Noted Date Encounter for palliative care 09/21/2020 Overview: Formatting of this note might be differ ent from the original. Intro visit in infusion.Minimal to no s ymptoms, introduced advance directives, insisted on HCP, explained reasons. Presence of urostomy 04/07/2019 CAD (coronary artery disease) 04/06/2019 Anemia 04/06/2019 Essential hypertension 08/27/2018 Pure hypercholesterolemia 10/11/2016 Bladder cancer Cancer Staging: Pathologic stage from : rpT0, pN2, cM1 - Signed by Cynthia Moody MD on 09/08/2020 documented as of this encounter (statuses as of 02/17/2021) Resolved Problems Problem Noted Date Resolved Date Counseling on substance use and abuse 01/16/2017 04/06/2019 Status post percutaneous transluminal coronary angioplasty 10/11/2016 04/06/2019 Tobacco user 10/11/2016 04/06/2019 Acute [place], inferior wall 09/23/2016 04/06/2019 documented as of this encounter (statuses as of 02/17/2021) Social History Date Tobacco Use Types Packs/Day Years Used Light Tobacco Smoker Cigarettes 0.12 30 Smokeless Tobacco: Never Used Comments: occasionally smokes (had 3-4 c igarettes since november) Comments Alcohol Use Standard Drinks/Week every two weeks Yes 3 (1 standard drink = 0.6 o z pure alcohol) Sex Assigned at Date Recorded Not on file Date Recorded COVID-19 Exposure Response 01/20/2021 8:57 AM EDT In the last month, have you been in contact with No / Unsure someone who was confirmed or suspected to have Coronavirus / COVID-19? documented as of this encounter Last Filed Vital Signs Reading Time Taken Comments Vital Sign 141/75 01/06/2021 10:41 AM EDT Blood Pressure 65 01/06/2021 10:41 AM EDT Pulse 36.5 C (97.7 F) 01/06/2021 10:41 AM EDT Temperature 16 01/06/2021 10:41 AM EDT Respiratory Rate 100% 01/06/2021 10:41 AM EDT ra Oxygen Saturation - - Inhaled Oxygen Concentration 77.3 kg (170 lb 6.4 oz) 01/06/2021 9:26 AM EDT Weight - - Height 25.91 08/26/2020 11:04 AM EDT Body Mass Index documented in this encounter Progress Notes * Cynthia Moody MD - 01/06/2021 9:15 AM EDT I saw and evaluated the patient Tani Montiel Molly with [facility] Kristyn Nicholson. Discussed with her and agree with her findings and plans as written, along with any suppl emental dictated and/or attending documentation in the patient record by myself . The treatment plan was discussed with the patient. ECOG Performance Status: (0) Fully active, able to carry on all predisease perfo rmance without restriction Previous Oncologic History, Diagnosis and stage: 1. 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 2. Anemia associated with chemotherapy Date of Cancer Diagnosis:11/19/2018 Past Treatment: - TURBT 11/21/18 - pT2 high-grade urothelial cell carcinoma, papillary type- - Neoadjuvant ddMVAC 12/22/18-02/05/19 - Open radical cystoprostatectomy, bilateral pelvic lymph node dissection, creat ion of ileal conduit, bilateral nerve sparing, left diagnostic ureteroscopy 04/06/19 - ypT0N2 urothelial carcinoma May 26, 2019-started on immunotherapy with [facility] and co mpleted his adjuvant therapy with Keytruda of 18th cycle on June 01, 2020 an d he tolerated it very well His scans thereafter has been stable without any evidence of disease recurrence. CGP on bladder tumor showed microsatellites undetermined, tumor mutation burden undetermined and has TP53 mutation, PD-L1 of 1% March 11, 2020-CAT scan of the chest abdomen and pelvis showed a thoracic spine lesion which needed to be further evaluated and we did an MRI of the spine for him on March 30, 2020, which showed a T10 vertebral body indeterminate lesion and suggested an MRI follow-up of 4 to 6 months versus a biopsy and grade at celina t time wanted to follow it up but not undergo biopsy. June 07, 2020-CAT scan of the chest abdomen and pelvis shows now somewhat incr eased retroperitoneal and pelvic lymphadenopathy with a more conspicuous T10 melvin tebral body lesion. I discussed with Nicola over the phone that we need to possibly do a PET CT scan t o evaluate this further and he agreed July 11, 2020-MRI of the spine was consistent with the findings for osseous m etastatic disease involving T10 vertebra and new small osseous metastatic cyst e lsewhere. No compressive epidural tumor was identified in the spinal canal and no pathologic compression fractures are noted. August 15, 2020-PET CT scan confirmed metastatic skeletal uptake, left iliac bone , left acetabulum, L5 vertebral body, T10 vertebral body, left clavicle, retrope ritoneal lymph node, celiac lymph node mediastinal and hilar lymph node He then was referred for radiation oncology for which she went to [facility], he finally had an appointment with them last week and he is going for CT simulation next week. 08/24/2020- Cycle # 1 and day # 1 of gemcitabine and carboplatin started, day # 8 completed on 09/06/2020 He completed his cycle #3 on September 21, 2020. He underwent radiation to the vertebral body in between and completed that. He went on to complete cycle #5 of gemcitabine and carboplatin every 2 weeks on November 09, 2020 November 17, 2020-CT of the chest abdomen and pelvis suggested good response to the retroperitoneal lymph nodes and mixed response in the bones which could be the h ealing response, stable mediastinal and hilar lymph nodes Assessment/Plan- Tani Montiel Jamesently has a diagnosis of urothelial cancer, recurrent, stage IV, status post neoadjuvant intent gemcitabine and cisplatin as mentioned above and adjuvant immunotherapy in an [facility]. This was completed in May 2020 and unfortunately had a very quick recurrence. Given the metas tatic setting, he was started on gemcitabine and carboplatin. In between he rec eived the radiation to the spine T10 and L5 vertebral bodies. He completed cycle #8 of gemcitabine and carboplatin. His the scans shows stable disease and good response in the retroperitoneum. We will c/w with the next cycle of treatment. In regards to his bone mets I suggested him to continue with calcium and vitamin D and Xgeva every 12 weeks. Patient's current issues of urothelial carcinoma is getting treated as above and additional work up as mentioned below are pursued. I personally reviewed releva nt history pertinent labs, medicines, imaging ( CT, ultrasound). I personally re viewed the films and discussed with radiologist . Informed patient if he develop s any problems or issues prior to rtc then he should give our office a call in a ddition we have a 24 hour data processing control clerk service. Patient was agreeable with plan of ca re. Also patient and patient did ask questions which were answered to their sati sfaction and to the best of our knowledge. Cynthia Moody MD Pager - Soap Tender Department of Hematology Oncology [facility] 02/17/2021 7:22 PM * Kristyn Nicholson PA - 01/06/2021 9:15 AM EDT Hematology/Oncology Follow Up Note Diagnosis: 1. 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 Date of Cancer Diagnosis: 11/19/2018 Cancer Stage Bladder cancer, Pathologic stage from 09/02/2019: rpT0, pN2, cM1 Past Treatment: - TURBT 11/21/18 - pT2 high-grade urothelial cell carcinoma, papillary type - Neoadjuvant dose dense MVAC 12/22/18-02/05/19 - Open radical cystoprostatectomy, bilateral pelvic lymph node dissection, creat ion of ileal conduit, bilateral nerve sparing, left diagnostic ureteroscopy 04/06/19 - ypT0N2 urothelial carcinoma - Enrolled in Trial, received Keytruda from 05/26/19-06/01/20 - Radiation therapy to lumbar spine at [facility] Current Treatment: Treatment Goal: Palliative Plan Name: OP Bladder Cancer Gemcitabine / Carboplatin (D1, Q14D) Status: Active Start Date: 08/24/2020 End Date: 01/20/2021 (Planned) Provider: Cynthia Moody MD Chemotherapy: dexamethasone (DECADRON) tablet 8 mg, 8 of 10 cycles CARBOplatin (PARAPLATIN) 217 mg in sodium chloride 0.9 % chemo infusion, 8 of 10 cycles gemcitabine (GEMZAR) 1,930 mg in sodium chloride 0.9 % 250 mL chemo infusion, 8 of 10 cycles ECOG Performance Status: 1- Restricted in physically strenuous activity but ambu latory and able to carry out work of a light or sedentary nature, e.g., light ho use work, office work Oncologic History: Oncologic History Tani Barnes is a 55 y.o. male with a history of Stage [id number] papillary urot helial cell carcinoma. He developed hematuria in November 2018 that later progressed and became painful with clotting as well. [facility] where they did a CT that demonstrated a large amount of clot in the bl adder, and a clot evacuation as well as resection of a 3 cm anterior bladder elise or were performed on 11/21/2018. The pathology from the resection demonstrated a T2 papillary urothelial carcinoma. He was then referred to Medical Oncology in [place] as well as Dr. Morris in urology. The decision was then made to undergo neoadjuvant chemotherapy followed by radical cystectomy. He established care wi th Dr. Castillo the [facility] and completed 4 cycles of dose-dense MVAC from 12/22/2018 to 02/05/2019. He went on to have a radical cystectomy with pelvic lymph node dissection on 04/06/2019 which demon strated no evidence of residual bladder tumor, but metastases to 3 pelvic lymph nodes on the right side. Postoperative stage was ypT0N2 cM0. He was referredto our clinic for consideration of the [facility] trial. He d ecided to proceed on 05/06/19 and was randomized to the treatment arm. He receive d keytruda from 05/26/19, completing with cycle 19 on 06/01/20. Patient later had MRI lumbar spine which revealed metastatic disease, he was ref erred to radiation oncology closer to home per his preference. He also had a PET scan on 08/15/20 which revealed metastatic disease to multiple LN and confirmed metastatic bone disease. Dr. Moody spoke with patient on 08/19/20 and decision w as made to proceed with carboplatin/gemzar. He received cycle 1 on 08/24/20. He underwent a CT chest, abdomen pelvis done 11/17/20 showed good response with d ecreased retroperitoneal adenopathy, stable mediastinal and right hilar adenopat hy and mixed response of sclerotic lesions which was reviewed with Dr. Moody an d felt to be possibly healing response. He was last seen in our clinic on 12/23/2020 for a follow-up prior to cycle 8 of gemcitabine/carboplatin. Interim History: Mr. Barnes is here today for a follow-up prior to cycle 9 of gem citabine/carboplatin. He states overall he is doing fairly well. He does not celina t he has been very fatigued lately, but has been "pushing through it". He states that he has been having trouble at work staying awake and has been sleeping more in the evenings as well. He states he is still constipated, but it is being ma naged with colace. He states his appetite is stable as well. He otherwise denies shortness of breath, chest pain, abdominal pain, bloody stools or urine, fevers, chills, body aches, or bone pain. Subjective: Past Medical History: Diagnosis Date Acute [place], inferior wall 09/23/2016 Anemia Cancer 11/2018 bladder Cardiac disease cardiac stents Counseling on substance use and abuse 01/16/2017 Dental caries Diverticulosis 2015 Hypertension Presence of urostomy 04/07/2019 Status post percutaneous transluminal coronary angioplasty 10/11/2016 Tobacco user 10/11/2016 Family and Social History Tani Barnes family history includes Cancer in his father; Heart disease in h is father and mother; Hyperlipidemia in his mother; Hypertension in his father a nd sister; Seizures in his sister. He reports that he has been smoking cigarett es. He has a 3.60 pack-year smoking history. He has never used smokeless tobacco . He reports current alcohol use of about 3.0 - 4.0 standard drinks of alcohol p er week. He reports current drug use. Frequency: 2.00 times per week. Drug: Mayra hdz. Medications and Allergies No Known Allergies Current Outpatient Medications on File Prior to Visit Medication Sig Dispense Refill aspirin (ASPIRIN LOW DOSE) 81 MG chewable tablet Chew 81 mg by Mouth ever y morning atorvastatin (LIPITOR) 40 MG tablet Take 40 mg by mouth every morning lisinopril (PRINIVIL,ZESTRIL) 5 MG tablet Take 5 mg by mouth every mornin g Nitroglycerin 0.4 MG Sublingual Tablet Sublingual (NITROSTAT) Place 1 tab let under the tongue every 5 (five) minutes as needed for Chest pain 90 tablet 0 Ondansetron HCl 8 MG Oral Tablet (ZOFRAN) Take 1 tablet by mouth every 8 (eight) hours as needed for Nausea or Vomiting 20 tablet 1 Prochlorperazine Maleate 10 MG Oral Tablet (COMPAZINE) Take 1 tablet by m outh every 6 (six) hours as needed (Nausea/Vomiting) 30 tablet 1 No current facility-administered medications on file prior to visit. Review of Systems Constitutional: Positive for fatigue. Negative for appetite change and fever. HENT: Negative. Eyes: Negative for visual disturbance. Respiratory: Negative for cough, chest tightness, shortness of breath and wheezi ng. Cardiovascular: Negative for chest pain, palpitations and leg swelling. Gastrointestinal: Positive for constipation (chronic, managed with medication). Negative for abdominal distention, abdominal pain, blood in stool, nausea and vo miting. Genitourinary: Negative for difficulty urinating, dysuria and hematuria. Musculoskeletal: Negative for arthralgias, back pain and myalgias. Skin: Negative for color change, pallor and rash. Neurological: Negative for tremors, light-headedness and headaches. Hematological: Does not bruise/bleed easily. Psychiatric/Behavioral: Negative for sleep disturbance. The patient is not nervo us/anxious. Objective: Vitals: Vitals - 1 value per visit 2020 12/23/2020 01/06/2021 SYSTOLIC 148 143 132 DIASTOLIC 85 79 72 PULSE 72 61 80 TEMPERATURE 98.4 98 98.2 RESPIRATIONS 14 16 16 Weight (kg) 77.928 kg 76.749 kg 77.293 kg HEIGHT - - - SPO2 100 99 98 BODY MASS INDEX 26.12 kg/m2 25.73 kg/m2 25.91 kg/m2 PAIN SCALE - SCORE 0 0 0 Physical Exam Constitutional: Appearance: Normal appearance. He is not ill-appearing or toxic-appearing. HENT: Head: Normocephalic and atraumatic. Nose: Nose normal. Mouth/Throat: Mouth: Mucous membranes are moist. Pharynx: Oropharynx is clear. No oropharyngeal exudate or posterior oropharyn geal erythema. Eyes: Extraocular Movements: Extraocular movements intact. Conjunctiva/sclera: Conjunctivae normal. Cardiovascular: Rate and Rhythm: Normal rate. Pulses: Normal pulses. Heart sounds: Normal heart sounds. No murmur heard. No friction rub. No gallop. Pulmonary: Effort: Pulmonary effort is normal. Breath sounds: Normal breath sounds. No stridor. No wheezing or rhonchi. Abdominal: General: Abdomen is flat. Bowel sounds are normal. Palpations: Abdomen is soft. There is no mass. Tenderness: There is no abdominal tenderness. There is no guarding. Hernia: No hernia is present. Musculoskeletal: General: No swelling or tenderness. Normal range of motion. Cervical back: Normal range of motion and neck supple. No tenderness. Lymphadenopathy: Cervical: No cervical adenopathy. Skin: General: Skin is warm and dry. Coloration: Skin is not pale. Findings: No bruising, erythema or rash. Neurological: General: No focal deficit present. Mental Status: He is alert and oriented to person, place, and time. Mental st atus is at baseline. Motor: No weakness. Psychiatric: Mood and Affect: Mood normal. Behavior: Behavior normal. Thought Content: Thought content normal. Lab Review Office Visit on 01/06/2021 Component Date Value Ref Range Status White Blood Cell 01/06/2021 6.4 4.00 - 10.00 10*3/uL Final Red Blood Cell 01/06/2021 2.23* 4.60 - 6.10 10*6/uL Final Hemoglobin 01/06/2021 8.5* 13.5 - 18.0 g/dL Final Hematocrit 01/06/2021 24.7* 41.0 - 53.0 % Final Mean Cell Volume 01/06/2021 110.3* 80.0 - 96.0 fL Final Mean Cell Hemoglobin 01/06/2021 38.1* 27.0 - 33.0 pg Final Mean Cell Hgb Conc 01/06/2021 34.5 32 - 36 g/dL Final Red Cell Dist Width 01/06/2021 19.1* 11.5 - 14.5 % Final Platelet Count 01/06/2021 156 150 - 400 10*3/uL Final Differential Type 01/06/2021 Automated Diff Final Neutrophil 01/06/2021 61 % Final Lymphocyte 01/06/2021 18 % Final Monocyte 01/06/2021 19 % Final Eosinophil 01/06/2021 2 % Final Basophil 01/06/2021 0 % Final Abs Neutrophil 01/06/2021 3.83 1.80 - 7.00 10*3/uL Final Abs Lymphocyte 01/06/2021 1.18* 1.20 - 4.00 10*3/uL Final Abs Monocyte 01/06/2021 1.24* 0.00 - 0.80 10*3/uL Final Abs Eosinophil 01/06/2021 0.15 0.00 - 0.50 10*3/uL Final Abs Basophil 01/06/2021 0.03 0.00 - 0.20 10*3/uL Final Nucleated Red Blood Cells 01/06/2021 0 0 - 0 /100 Final Albumin 01/06/2021 4.1 3.5 - 5.2 g/dL Final Bilirubin, Total 01/06/2021 0.2 <1.2 mg/dL Final Calcium 01/06/2021 9.2 8.6 - 10.0 mg/dL Final Chloride 01/06/2021 107 98 - 107 mmol/L Final Creatinine 01/06/2021 1.39* 0.70 - 1.20 mg/dL Final Glucose 01/06/2021 93 70 - 140 mg/dL Final Alkaline Phosphatase 01/06/2021 97 40 - 129 U/L Final Potassium 01/06/2021 4.0 3.4 - 5.1 mmol/L Final Total Protein 01/06/2021 6.3* 6.4 - 8.3 g/dL Final Sodium 01/06/2021 141 136 - 145 mmol/L Final AST/SGO 01/06/2021 15 <40 U/L Final Blood Urea Nitrogen 01/06/2021 18 6 - 20 mg/dL Final Osmolality, Paulino 01/06/2021 294 275.0 - 300.0 mosm/kg Final BUN/Cre Ratio 01/06/2021 13 Final Bicarbonate 01/06/2021 22 22 - 29 mmol/L Final ALT/SGP 01/06/2021 15 <41 U/L Final Anion Gap 01/06/2021 12 8 - 15 mmol/L Final GFR Non 2008 CDK-* 01/06/2021 56* >60 mL/min/1.73m2 Final GFR 2008 CKD-EPI 01/06/2021 65 >60 mL/min/1.73m2 Final ABO/RH(D) 01/06/2021 A NEG Final Gel Antibody Screen 01/06/2021 NEG Final Site 01/06/2021 Performed at [place], [place] Final Called to 01/06/2021 MAYE RING INFUSION AT 1155 Final UNIT NUMBER 01/06/2021 [id number] Final Blood Component Type 01/06/2021 Leukoreduced Red Cells Final Unit Division 01/06/2021 00 Final STATUS OF UNIT 01/06/2021 REL FROM ALLOC Final TRANSFUSION STATUS 01/06/2021 OK TO TRANSFUSE Final CROSSMATCH RESULT 01/06/2021 Compatible Final Tumor Markers Lab Results Component Value Date PSATOTAL <0.1 04/01/2020 Assessment: Mr. Barnes is a 55 y.o. 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 He is here for a follow-up today prior to Cycle #9 of gemcitabine/carboplatin. 1. Stage IV Urothelial cell carcinoma: - Diagnosed November 2018 - s/p TURBT 11/21/18 - pT2 high-grade urothelial cell carcinoma, papillary type - Completed Neoadjuvant dose dense MVAC 12/22/18-02/05/19 - c/p Open radical cystoprostatectomy, bilateral pelvic lymph node dissection, c reation of ileal conduit, bilateral nerve sparing, left diagnostic ureteroscopy 04/06/19 with pathology demonstrating ypT0N2 urothelial carcinoma - Enrolled in [facility] Trial, received Keytruda from 05/26/19-06/01/20 - PET scan on 08/15/20 which revealed metastatic disease to multiple LN and confi rmed metastatic bone disease - Started Gemcitabine/Carboplatin on 08/24/2020 - Labs reviewed today and stable to proceed with Cycle #9 - Last Xgeva was given 10/26/2020 and will be due at next OV, advised to continu e vitamin D and calcium supplementation - RTC in 2 weeks for OV with JUVENCIO Cervantes 2. Anemia associated with chemotherapy: - Patient reporting significant grade 2 fatigue - Labs reviewed today, H/H 8.5/24.7 - Patient agreeable to receiving 1 unit PRBC today in addition to his treatment - Discussed frequent breaks/rest - RTC if symptoms worsen, change or fail to improve Plan: Tani Barnes should return in 2 weeks for OV with APC, labs, Xgeva, & infusion gemcitabine/carboplatin. Imaging prior to return to clinic?: no Labs on return to clinic? yes Medication changes? no Opioid induced constipation? no Meds reconciled? yes Referrals needed? There are no social work or other referral needs at this time Patient is aware of and in agreement with the plan detailed above. All questions were answered to the best of my ability and to patient satisfaction. He was ins tructed to contact the office with any questions or concerns that may arise prio r to their next scheduled appointment and to call the office immediately with an y new or worsening symptoms. The availability of the 24/12 data processing control clerk service was ad ditionally reviewed with the patient. Certain parts of this note may have been carried over from prior Hematology/Onco logy notes to maintain accuracy of patient's pertinent medical history and angely nuity of care. The details were verified and edited as appropriate. Patient was seen and discussed with Dr. Moody. Kristyn Nicholson PA-C Adult Hematology Oncology documented in this encounter Plan of Treatment Care Team Description Date Type Specialty Cynthia Moody MD [address] [place] [id number] [phone] 02/24/2021 Office Visit Hematology and Onco logy Health Maintenance Due Date Last Done Comments Dental Prophylaxis 1965 MMR Vaccines (1 of - 12/10/1967 Standard series) Varicella Vaccines (1 of 12/10/1967 2 - 2-dose childhood series) Pneumococcal Vaccine: 65+ 1972 Years (1 of 4 - PCV13) Pneumococcal Vaccine: 1972 Pediatrics (0 to 5 Years) and At-Risk Patients (6 to 64 Years) (1 of 4 - PCV13) DTaP,Tdap,and Td Vaccines 1973 (1 - Tdap) COVID-19 Vaccine (1) 1978 HIV Screening 12/10/1979 Colon Cancer Screening 10 2016 yrs Influenza Vaccine 03/03/2021 Dental Oral Exam 03/24/2021 09/22/2020 Dental X-Ray: Bitewings 09/22/2021 09/22/2020 Dental X-Ray: Full Mouth 09/23/2023 09/22/2020, or Panorex 09/22/2020 HIB Vaccines Aged Out No longer eligible based on patient's age to complete this topic Hepatitis A Vaccines Aged Out No longer eligibl e based on patient's age to complete this topic Hepatitis B Vaccines Aged Out No longer eligibl e based on patient's age to complete this topic IPV Vaccines Aged Out No longer eligible based on patient's age to complete this topic documented as of this encounter Procedures Comments Procedure Name Priority Date/Time Associated Diag nosis CBC AND DIFFERENTIAL Routine 01/06/2021 Malignant neoplasm of 9:10 AM EDT anterior wall of urinary bladder TYPE AND SCREEN Routine 01/06/2021 9:10 AM EDT COMPREHENSIVE METABOLIC STAT 01/06/2021 Malign ant neoplasm of PANEL 9:10 AM EDT anterior wall of ur inary bladder documented in this encounter Results * Type and Screen (01/06/2021 9:10 AM EDT) ABO/RH(D) A NEG [facility] Gel Antibody NEG [facility] Screen Med [facility] Site Performed at [facility], [place] [facility] Called to [facility]FUSION AT [address] [facility] UNIT NUMBER [id number] [facility] Blood Component Leukoreduced Red Cells [facility] Type [facility] Unit Division 00 [facility] STATUS OF UNIT REL FROM ALLOC [facility] Pathology TRANSFUSION OK TO TRANSFUSE [facility]ology CROSSMATCH Compatible [facility]ology Specimen EDTA Whole Blood Performing Organization Address City/State/ZIP Code P teresita Number [facility] [address] [place], [place] [address] PATHOLOGY [facility] [address] [place], [place] [address] Clin Pathology * Comprehensive metabolic panel (01/06/2021 9:10 AM EDT) Albumin 4.1 3.5 - 5.2 g/dL [facility]ology Bilirubin, 0.2 <1.2 mg/dL [facility] Total [facility]ology Calcium 9.2 8.6 - 10.0 mg/dL [facility]ology Chloride 107 98 - 107 mmol/L [facility] Creatinine 1.39 (H) 0.70 - 1.20 mg/dL [facility] Clin Pathology Glucose 93 70 - 140 mg/dL [facility] Clin Pathology Alkaline 97 40 - 129 U/L [facility] Phosphatase [facility] Clin Pathology Potassium 4.0 3.4 - 5.1 mmol/L [facility] Clin Pathology Total Protein 6.3 (L) 6.4 - 8.3 g/dL [facility] Clin Pathology Sodium 141 136 - 145 mmol/L [facility] Clin Pathology AST/SGO 15 <40 U/L [facility] Clin Pathology Blood Urea 18 6 - 20 mg/dL [facility] Nitrogen [facility] Clin Pathology Osmolality, Paulino 294 275.0 - 300.0 [facility] mosm/kg [facility] Clin Pathology BUN/Cre Ratio 13 [facility] Clin Pathology Bicarbonate 22 22 - 29 mmol/L [facility] Clin Pathology ALT/SGP 15 <41 U/L [facility] Clin Pathology Anion Gap 12 8 - 15 mmol/L [facility] Clin Pathology GFR Non 56 (L) >60 mL/min/1.73m2 [facility] e [place] 2008 [facility] Clin CDK-EPI Pathology GFR 65 >60 mL/min/1.73m2 [facility] 2008 [facility] CKD-EPI Pathology Specimen Plasma Performing Organization Address City/State/ZIP Code P teresita Number [facility] [address] [place], [place] [address] PATHOLOGY [facility] [address] [place], [place] [address] Clin Pathology * CBC and differential (01/06/2021 9:10 AM EDT) White Blood 6.4 4.00 - 10.00 10*[facility] Pathology Red Blood Cell 2.23 (L) 4.60 - 6.10 10*6/uL [facility] te [facility] Clin Pathology Hemoglobin 8.5 (L) 13.5 - 18.0 g/dL [facility] Clin Pathology Hematocrit 24.7 (L) 41.0 - 53.0 % [facility] Clin Pathology Mean Cell 110.3 (H) 80.0 - 96.0 fL [facility] Volume [facility] Clin Pathology Mean Cell 38.1 (H) 27.0 - 33.0 pg [facility] Hemoglobin [facility] Path[facility] Mean Cell Hgb 34.5 32 - 36 g/dL [facility] Conc [facility] Clin Pathology Red Cell Dist 19.1 (H) 11.5 - 14.5 % [facility] Width [facility] Clin Pathology Platelet Count 156 150 - 400 10*3/uL [facility] Pathology Differential Automated Diff [facility] Type [facility] Clin Pathology Neutrophil 61 % [facility] Clin Pathology Lymphocyte 18 % [facility] Clin Pathology Monocyte 19 % [facility] Clin Pathology Eosinophil 2 % [facility] Clin Pathology Basophil 0 % [facility] Clin Pathology Abs Neutrophil 3.83 1.80 - 7.00 10*3/uL [facility] Clin Pathology Abs Lymphocyte 1.18 (L) 1.20 - 4.00 10*3/uL [facility] Clin Pathology Abs Monocyte 1.24 (H) 0.00 - 0.80 10*3/uL [facility] Clin Pathology Abs Eosinophil 0.15 0.00 - 0.50 10*3/uL [facility] Clin Pathology Abs Basophil 0.03 0.00 - 0.20 10*3/uL [facility] Clin Pathology Nucleated Red 0 0 - 0 /100{WBCs} [facility] Blood Cells [facility] Clin Pathology Specimen EDTA Whole Blood Performing Organization Address City/State/ZIP Code P teresita Number 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 Follow precautions. Dispose of properly. 01/06/2021 11:38 AM EDT 8 mg dexamethasone (DECADRON) tablet 8 mg Given 8 mg, Oral, Once, On Sat01/06/21 at 1100 , For 1 dose, Give prior to chemotherapy. 01/06/2021 12:27 PM EDT 1,930 mg 500 mL/hr gemcitabine (GEMZAR) 1,930 mg in sodium New Bag chloride 0.9 % 250 mL chemo infusion 1,930 mg (1,000 mg/m2 1.93 m2), Intravenous, Administer over 30 Minutes, Once, On Sat01/06/21 at 1130 , For 1 dose, Irritant 01/06/2021 11:38 AM EDT 0.5 mg LORazepam (ATIVAN) tablet 0.5 mg Given 0.5 mg, Oral, Once, On Sat01/06/21 at 1100, For 1 dose, Give prior to chemotherapy 01/06/2021 11:38 AM EDT 0.25 mg palonosetron (ALOXI) 0.25 MG/5ML Given by IV injection syringe 0.25 mg push 0.25 mg, Intravenous, Once, On Sat01/06/21 at 1100, For 1 dose, Give 30 minutes prior to chemo. documented in this encounter
--- OUTSIDE RECORDS SUMMARY | 2021-04-22 21:53 | CCD | Summary of Care ---
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 P rocedures CT Abdomen Pelvis with Contrast Electronically signed by Helen Mckeon PROJECT PRODUCTION ENGINEER at * Diagnostic Radiology (Routine) Referred By Contact Referred To Contact Status Reason Specialty Diagnoses / Procedures Helen Mckeon NP [address] [place] [address] Email: [email or web address] Open Diagnoses 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 P rocedures CT Thorax with Contrast Electronically signed by Helen Mckeon NP at Reason for Visit * Reason Comments Follow-up Infusion Encounter Details Care Team Description Date Type Department Helen Mckeon NP [address] [place] [id number] 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u rinary bladder (Primary Dx) 01/20/2021 Office Visit Hematology Oncology [address] [place] [id number] Allergies No Known Active Allergiesdocumented as of this encounter (statuses as of 01/23/2021) Medications End Date Status Medication Sig Dispensed Refills Start Date Active atorvastatin (LIPITOR) 40 Take 40 mg by 0 06/0 7/201 MG tablet mouth every 9 morning Active [...] as of this encounter (statuses as of 01/23/2021) Active Problems Problem Noted Date Encounter for [...] as of this encounter (statuses as of 01/23/2021) Resolved Problems Problem Noted Date Resolved Date Counseling on substance use and abuse 01/16/2017 04/06/2019 Status post percutaneous transluminal coronary angioplasty 10/11/2016 04/06/2019 Tobacco user 10/11/2016 04/06/2019 Acute ND, inferior wall 09/23/2016 04/06/2019 documented as of this encounter (statuses as of 01/23/2021) Social History Date Tobacco Use Types Packs/Day [...] Signs Reading Time Taken Comments Vital Sign 131/77 01/20/2021 12:04 PM EDT Blood Pressure 64 01/20/2021 12:04 PM EDT Pulse 36.7 C (98.1 F) 01/20/2021 9:56 AM EDT Temperature 16 01/20/2021 12:04 PM EDT Respiratory Rate 99% 01/20/2021 12:04 PM EDT Oxygen Saturation - - Inhaled Oxygen Concentration 77.6 kg (171 lb) 01/20/2021 9:22 AM EDT Weight - - Height 26 08/26/2020 11:04 AM EDT Body Mass Index documented in this encounter Progress Notes * Helen Mckeon NP - 01/20/2021 9:30 AM EDT Images from the original note were not included. Hematology/Oncology Follow Up Note Diagnosis: 1. 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 Date of Cancer Diagnosis: 11/19/2018 Cancer Stage: mA1N3V4 --> ypT0N2 cM0 papillary urothelial cell carcinoma Past Treatment: - TURBT 11/21/18 - pT2 high-grade urothelial cell carcinoma, papillary type - Neoadjuvant dose dense MVAC 12/22/18-02/05/19 - Open radical cystoprostatectomy, bilateral pelvic lymph node dissection, creat ion of ileal conduit, bilateral nerve sparing, left diagnostic ureteroscopy 04/06/19 - ypT0N2 urothelial carcinoma - Enrolled in [employer] Trial, received Keytruda from 05/26/19-06/01/20 Current Treatment: Carboplatin/gemzar every 14 days (C1 08/24/2020) ECOG Performance Status: 0- Fully active, able to carry on all pre-disease perfo rmance without restriction Oncologic History: Oncologic History Tani Barnes is a 55 y.o. male with PMH significant for history of ND status post stenting x2 in 2017, dyslipidemia, extensive tobacco abuse, who was in his usual state of health until November of 2018 when he developed hematuria. At first there was just some blood in the urine, but then a clot developed and became curtis te painful, prompting him to present to the local emergency department. There, CT showed a large amount of clot in the bladder, and a clot evacuation as well a s resection of a 3 cm anterior bladder tumor were performed on 11/21/2018. Path ology from the resection of bladder tumor showed T2 papillary urothelial carcino ma. He was referred to Medical Oncology in [place] as well as Dr. Morris of [facility]. Decision was to pursue neoadjuvant chemotherapy followed by radical cyst ectomy. He established care with Dr. Aundrea Best in the [facility] and completed 4 cycles of dose-dense MVAC from 12/22/2018 to 02/05/2019 . He went on to have a radical cystectomy with pelvic lymph node dissection on 04/06/2019 which demonstrated no evidence of residual bladder tumor, but metasta ses to 3 pelvic lymph nodes on the right side. Postoperative stage was ypT0N2 c M0. He was referred to us for consideration of the [employer] trial. He decided to p roceed on 05/06/19 and was randomized to the treatment arm. He received keytruda from 05/26/19, completing with cycle 19 on 06/01/20. Patient had MRI lumbar spine which revealed metastatic disease, he was referred to radiation oncology closer to home per his preference. He also had a PET scan on 08/15/20 which revealed metastatic disease to multiple LN and confirmed metast atic bone disease. Dr. Moody spoke with patient on 08/19/20 and decision was mad e to proceed with carboplatin/gemzar. He received cycle 1 on 08/24/20. Interim History: Patient presents today for follow up prior to cycle 10. He reports he is doing f airly well, tolerating treatment without issue. He is fatigued, tires easily wit h some dyspnea on exertion. Constipation resolved. He has no significant complai nts. Eating and drinking well. Taking colace few days prior to each cycle to pre vent constipation. Last Colonoscopy was 1 year prior and was normal with benign polyps. Otherwise he has no pain. Denies any fevers, chills, cold symptoms, cou gh, shortness of breath, chest pain, palpitations, abdominal pain, nausea/vomiti ng, diarrhea, rectal bleeding, blood or black tarry stools, abnormal bleeding or bruising, swelling or rashes. Subjective: Past Medical History: Diagnosis Date Acute ND, inferior wall 09/23/2016 Anemia Cancer 11/2018 bladder [...] hours as needed (Nausea/Vomiting) 30 tablet 1 Current Facility-Administered Medications on File Prior to Visit Medication Dose Route Frequency Provider Last Rate Last Admin acetaminophen (TYLENOL) tablet 650 mg 650 mg Oral Once Beatriz Domingo A diphenhydrAMINE (BENADRYL) capsule 25 mg 25 mg Oral Once JOVON Domingo Review of Systems See HPI above Objective: Vitals: Vitals - 1 value per visit 12/23/2020 01/06/2021 01/20/2021 SYSTOLIC 143 141 130 DIASTOLIC 79 75 73 PULSE 61 65 74 TEMPERATURE 98 97.7 98.6 RESPIRATIONS 16 16 16 Weight (kg) 76.749 kg 77.293 kg 77.565 kg HEIGHT - - - SPO2 99 100 98 BODY MASS INDEX 25.73 kg/m2 25.91 kg/m2 26 kg/m2 PAIN SCALE - SCORE 0 0 0 Physical Exam Vitals reviewed. Constitutional: General: He is not in acute distress. Appearance: Normal appearance. HENT: Head: Normocephalic and atraumatic. Nose: Nose normal. No congestion or rhinorrhea. Mouth/Throat: Mouth: Mucous membranes are moist. Pharynx: Oropharynx is clear. No oropharyngeal exudate or posterior oropharyn geal erythema. Eyes: General: Lids are normal. No scleral icterus. Right eye: No discharge. Left eye: No discharge. Conjunctiva/sclera: Conjunctivae normal. Comments: Clear tissue overgrowth in left eye extending from tear duct toward s cornea Cardiovascular: Rate and Rhythm: Normal rate and regular rhythm. Pulmonary: Effort: Pulmonary effort is normal. No respiratory distress. Breath sounds: Normal breath sounds. No stridor. No wheezing or rhonchi. Abdominal: General: Abdomen is flat. Bowel sounds are normal. There is no distension. Palpations: Abdomen is soft. Tenderness: There is no abdominal tenderness. Comments: Ileostomy intact Musculoskeletal: General: Normal range of motion. Cervical back: Normal range of motion and neck supple. Right lower leg: No edema. Left lower leg: No edema. Skin: General: Skin is warm and dry. Capillary Refill: Capillary refill takes less than 2 seconds. Neurological: General: No focal deficit present. Mental Status: He is alert and oriented to person, place, and time. Psychiatric: Mood and Affect: Mood normal. Behavior: Behavior normal. Thought Content: Thought content normal. Judgment: Judgment normal. Imaging CT Chest abdomen pelvis 11/17/2020 PET scan 08/15/20 MRI thoracic spine with and without contrast 07/11/20 MRI thoracic spine without contrast 03/30/20 CT Thorax 06/07/20: CT Abdomen and Pelvis 06/07/20: PET scan 10/14/19 IMPRESSION: Left para-aortic lymph node is identified with mild activity and is nonspecific and may be reactive. Bilateral inguinal nodes are likely physiologic . Labs Office Visit on 01/20/2021 Component Date Value Ref Range Status Albumin 01/20/2021 4.0 3.5 - 5.2 g/dL Final Bilirubin, Total 01/20/2021 0.2 <1.2 mg/dL Final Calcium 01/20/2021 8.9 8.6 - 10.0 mg/dL Final Chloride 01/20/2021 104 98 - 107 mmol/L Final Creatinine 01/20/2021 1.29* 0.70 - 1.20 mg/dL Final Glucose 01/20/2021 91 70 - 140 mg/dL Final Alkaline Phosphatase 01/20/2021 98 40 - 129 U/L Final Potassium 01/20/2021 4.4 3.4 - 5.1 mmol/L Final Total Protein 01/20/2021 6.5 6.4 - 8.3 g/dL Final Sodium 01/20/2021 138 136 - 145 mmol/L Final AST/SGO 01/20/2021 14 <40 U/L Final Blood Urea Nitrogen 01/20/2021 18 6 - 20 mg/dL Final Osmolality, Paulino 01/20/2021 287 275.0 - 300.0 mosm/kg Final BUN/Cre Ratio 01/20/2021 14 Final Bicarbonate 01/20/2021 22 22 - 29 mmol/L Final ALT/SGP 01/20/2021 12 <41 U/L Final Anion Gap 01/20/2021 11 8 - 15 mmol/L Final GFR Non 2008 CDK-* 01/20/2021 61 >60 mL/min/1.73m2 Final GFR 2008 CKD-EPI 01/20/2021 71 >60 mL/min/1.73m2 Final White Blood Cell 01/20/2021 6.3 4.00 - 10.00 10*3/uL Final Red Blood Cell 01/20/2021 2.08* 4.60 - 6.10 10*6/uL Final Hemoglobin 01/20/2021 8.0* 13.5 - 18.0 g/dL Final Hematocrit 01/20/2021 23.3* 41.0 - 53.0 % Final Mean Cell Volume 01/20/2021 112.1* 80.0 - 96.0 fL Final Mean Cell Hemoglobin 01/20/2021 38.7* 27.0 - 33.0 pg Final Mean Cell Hgb Conc 01/20/2021 34.5 32 - 36 g/dL Final Red Cell Dist Width 01/20/2021 20.8* 11.5 - 14.5 % Final Platelet Count 01/20/2021 174 150 - 400 10*3/uL Final Differential Type 01/20/2021 Automated Diff Final Neutrophil 01/20/2021 61 % Final Lymphocyte 01/20/2021 17 % Final Monocyte 01/20/2021 20 % Final Eosinophil 01/20/2021 2 % Final Basophil 01/20/2021 0 % Final Abs Neutrophil 01/20/2021 3.89 1.80 - 7.00 10*3/uL Final Abs Lymphocyte 01/20/2021 1.07* 1.20 - 4.00 10*3/uL Final Abs Monocyte 01/20/2021 1.24* 0.00 - 0.80 10*3/uL Final Abs Eosinophil 01/20/2021 0.11 0.00 - 0.50 10*3/uL Final Abs Basophil 01/20/2021 0.03 0.00 - 0.20 10*3/uL Final Nucleated Red Blood Cells 01/20/2021 0 0 - 0 /100 Final Assessment: Tani Barnes is a 54 y.o. 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 # Stage IV urothelial carcinoma - Treatment history as above. Currently Gemzar/Carboplatin, plan is to complete 9 cycles and rescan him - CT chest, abdomen pelvis done 11/17/20 showed good response with decreased retr operitoneal adenopathy, stable mediastinal and right hilar adenopathy and mixed response of sclerotic lesions which was reviewed with Dr. Moody and felt to be possibly healing response. - He has moderate amt of fatigue and some mild dyspnea with exertion. His last c olonoscopy was 1 year ago, was normal. He has no abnormal bleeding or bruising. - Labs reviewed and adequate for treatment. H/H is 8.0/23.3, will hold off on tr ansfusion today. Can consider aranesp if his counts do not recover. - Proceed with cycle 10 gemzar/carboplatin today. - Surveillance scans to be done prior to his return. - For his bone mets, last Xgeva given on 10/26/2020, due today. He should continu e calcium and vitamin d supplementation. - RTC in 4 weeks for follow up evaluation with labs and review of scans. - Advised to notify us of worsening symptoms or concerns prior to his return Plan: Tani Barnes should return in 4 weeks OV [place] labs review of scans Imaging prior to return to clinic?: yes CT chest abd pelvis contrast Labs on return to clinic? yes Medication changes? no Opioid induced constipation? no Meds reconciled? yes Referrals needed? None needed today Patient aware and in agreement with above plan of care. Patient advised to notif y 24/12 radar air traffic controller service if any problems or issues arise prior to return to clinic . Patient evaluated by myself and plan discussed with Dr Moody who is in agreemen t. Time spent evaluation patient and reviewing chart included 30 minutes. Certain parts of this note may have been carried over from JOVON Casper's n ote from 10/26/2020 to maintain accuracy of patient's pertinent medical history a nd continuity of care. The details were verified and edited as appropriate. Helen Mckeon NP documented in this encounter Nursing Notes * Sweetie Robbins, DANISH - 01/20/2021 9:30 AM EDT TREATMENT ADMINISTRATION NOTE: Tani Barnes presents to infusion for Cycle 10, of carbo/gemzar . See Oncolog y Nursing Assessment flowsheet for patients assessment. Port flushed easil y and blood return was confirmed before, during, and after treatment. Patient t olerated infusion well. Following infusion, Port discontinued per protocol. VS s table, and as noted below. Patient encouraged to call with any questions or conc erns and aware of 24 hour on-call service. AVS provided with next appointment d ate and time. Patient discharged home, accompanied by self. Visit Vitals BP 131/77 Pulse 64 Temp 36.7 C (98.1 F) (Oral) Resp 16 Wt 77.6 kg (171 lb) SpO2 99% BMI 26.00 kg/m documented in this encounter Plan of Treatment Care Team Description Date Type Specialty Kendell Alvarado MD [address], [place] [id number] 01/31/2021 Office Visit Surgery Cynthia Moody MD [address] [place], [place] [phone] 02/03/2021 Office Visit Hematology and Onco logy Order Schedule Name Type Priority Associated Diag noses Expected: 01/20/2021, Expires: 2 CT Thorax with Contrast Imaging Routine Malign ant 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 Expected: 01/20/2021, Expires: 2 CT Abdomen Pelvis with Imaging Routine Maligna nt neoplasm of Contrast anterior wall of urinary bladder Health Maintenance Due Date Last Done Comments [...] DTaP,Tdap,and Td Vaccines 1973 (1 - Tdap) HIV Screening 12/10/1979 Colon Cancer Screening 10 [...] Associated Diag nosis CBC AND DIFFERENTIAL Routine 01/20/2021 Malignant neoplasm of 9:10 AM EDT anterior wall of urinary bladder COMPREHENSIVE METABOLIC STAT 01/20/2021 Malign ant neoplasm of PANEL 9:10 AM EDT anterior wall of ur inary bladder documented in this encounter Results * Comprehensive metabolic panel (01/20/2021 9:10 AM EDT) Albumin 4.0 3.5 - 5.2 g/dL [facility]ology Bilirubin, 0.2 <1.2 mg/dL [facility] Total [facility]ology Calcium 8.9 8.6 - 10.0 mg/dL [facility] Chloride 104 98 - 107 mmol/L [facility] Creatinine 1.29 (H) 0.70 - 1.20 mg/dL [facility] Glucose 91 70 - 140 mg/dL [facility] Alkaline 98 40 - 129 U/L [facility] Phosphatase [facility] Potassium 4.4 3.4 - 5.1 mmol/L [facility] Total Protein 6.5 6.4 - 8.3 g/dL [facility] Sodium 138 136 - 145 mmol/L [facility] AST/SGO 14 <40 U/L [facility] Blood Urea 18 6 - 20 mg/dL [facility] Osmolality, Paulino 287 275.0 - 300.0 [facility] mosm/kg [facility] BUN/Cre Ratio 14 [facility] Bicarbonate 22 22 - 29 mmol/L [facility] ALT/SGP 12 <41 U/L [facility] Anion Gap 11 8 - 15 mmol/L [facility] GFR Non 61 >60 mL/min/1.73m2 [facility] Upstat e [place] 2008 [facility] CDK-EPI Pathology GFR 71 >60 mL/min/1.73m2 [facility] 2008 [facility] CKD-EPI Pathology Specimen Plasma Performing Organization Address City/State/ZIP Code P teresita Number [facility] [address] [place], [place] [address] PATHOLOGY [facility] [address] [place], [place] [address] Clin Pathology * CBC and differential (01/20/2021 9:10 AM EDT) White Blood 6.3 4.00 - 10.00 [facility] Red Blood Cell 2.08 (L) 4.60 - 6.10 10*6/[facility]L [facility] Hemoglobin 8.0 (L) 13.5 - 18.0 g/dL [facility]ology Hematocrit 23.3 (L) 41.0 - 53.0 % [facility]ology Mean Cell 112.1 (H) 80.0 - 96.0 fL [facility] Volume [facility] Mean Cell 38.7 (H) 27.0 - 33.0 pg [facility] Hemoglobin [facility] Mean Cell Hgb 34.5 32 - 36 g/dL [facility] Conc [facility] Red Cell Dist 20.8 (H) 11.5 - 14.5 % [facility] Width [facility]ology Platelet Count 174 150 - 400 10*3/uL [facility]ology Differential Automated Diff [facility] Type [facility] Neutrophil 61 % [facility] Lymphocyte 17 % [facility] Monocyte 20 % [facility]ology Eosinophil 2 % [facility]ology Basophil 0 % [facility] Abs Neutrophil 3.89 1.80 - 7.00 10*3/uL [facility] Abs Lymphocyte 1.07 (L) 1.20 - 4.00 10*3/uL [facility] Abs Monocyte 1.24 (H) 0.00 - 0.80 10*3/uL [facility] Abs Eosinophil 0.11 0.00 - 0.50 10*3/uL [facility] Abs Basophil 0.03 0.00 - 0.20 10*3/uL [facility] Nucleated Red 0 0 - 0 /100{WBCs} [facility] Blood Cells [facility] Pathology Specimen EDTA Whole Blood Performing Organization Address City/State/ZIP Code P teresita Number [facility] [address] [place], [place] [address] PATHOLOGY [facility] [address] [place], [place] [address] Clin Pathology documented in this encounter Visit Diagnoses Diagnosis 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 Follo w precautions. Dispose of properly. 01/20/2021 11:34 AM EDT 120 mg Left Arm denosumab (XGEVA) injection 120 mg Given 120 mg, Subcutaneous, Once, On Sat01/20/21 at 0945, For 1 dose 01/20/2021 10:18 AM EDT 8 mg dexamethasone (DECADRON) tablet 8 mg Given 8 mg, Oral, Once, On Sat01/20/21 at 1015, For 1 dose, Give prior to chemotherapy. 01/20/2021 10:55 AM EDT 1,930 mg 500 mL/hr gemcitabine (GEMZAR) 1,930 mg in sodium New Bag chloride 0.9 % 250 mL chemo infusion 1,930 mg (1,000 mg/m2 1.93 m2), Intravenous, Administer over 30 Minutes, Once, On Sat01/20/21 at 1045, For 1 dose, Irritant 01/20/2021 10:16 AM EDT 0.5 mg LORazepam (ATIVAN) tablet 0.5 mg Given 0.5 mg, Oral, Once, On Sat01/20/21 at 1015, For 1 dose, Give prior to chemotherapy 01/20/2021 10:23 AM EDT 0.25 mg palonosetron (ALOXI) 0.25 MG/5ML Given by IV injection syringe 0.25 mg push 0.25 mg, Intravenous, Once, On Sat01/20/21 at 1015, For 1 dose, Give 30 minutes prior to chemo. documented in this encounter
--- OUTSIDE RECORDS SUMMARY | 2021-04-22 21:56 | CCD ---
Author Author [facility] Organization [facility] Address Unknown Phone Unavailable Care Team Providers Care Machine Presser Name Role Phone ED, TEST DEFAULT Unavailable Unavailable Steckel, M Eli RPA-C Unavailable Unavailable Steckel, M Eli RPA-C Unavailable Unavailable Steckel, M Eli RPA-C Unavailable Unavailable Steckel, M Eli RPA-C Unavailable Unavailable Steckel, M Eli RPA-C Unavailable Unavailable Steckel, M Eli RPA-C Unavailable Unavailable Steckel, M Eli RPA-C Unavailable Unavailable Steckel, M Eli RPA-C Unavailable Unavailable Steckel, M Eli RPA-C Unavailable Unavailable Steckel, M Eli RPA-C Unavailable Unavailable Steckel, M Eli RPA-C Unavailable Unavailable Steckel, M Eli RPA-C Unavailable Unavailable Steckel, M Eli RPA-C Unavailable Unavailable Steckel, M Eli RPA-C Unavailable Unavailable Steckel, M Eli RPA-C Unavailable Unavailable Steckel, M Eli RPA-C Unavailable Unavailable Steckel, M Eli RPA-C Unavailable Unavailable Steckel, M Eli RPA-C Unavailable Unavailable Steckel, Ovi Eli RPA-C Unavailable Unavailable Steckmarlen, Ovi Eli RPA-C Unavailable Unavailable Steoscar, M Eli RPA-C Unavailable Unavailable Steoscar, M Eli RPA-C Unavailable Unavailable Steckmarlen, Ovi Eli RPA-C Unavailable Unavailable SteOvi moore Eli RPA-C Unavailable Unavailable Steckmarlen, Ovi Eli RPA-C Unavailable Unavailable Danie, Tallat MD Unavailable Unavailable Danie, Tallat MD Unavailable Unavailable Danie, Tallat MD Unavailable Unavailable Danie, Tallat MD Unavailable Unavailable Danie, Tallat MD Unavailable Unavailable Danie, Tallat MD Unavailable Unavailable Danie, Tallat MD Unavailable Unavailable Danie, Tallat MD Unavailable Unavailable Danie, Tallat MD Unavailable Unavailable Danie, Tallat MD Unavailable Unavailable Aline MARINELLI YUE Unavailable Unavailable OMLOR, E ISMAEL Unavailable Unavailable SYMENOW, G CHRISTOPHER PA Unavailable Unavailable SYMENOW, G CHRISTOPHER PA Unavailable Unavailable SYMENOW, G CHRISTOPHER PA Unavailable Unavailable SYMENOW, G CHRISTOPHER PA Unavailable Unavailable SYMENOW, G CHRISTOPHER PA Unavailable Unavailable SYMENOW, G CHRISTOPHER PA Unavailable Unavailable SYMENOW, G CHRISTOPHER PA Unavailable Unavailable SYMENOW, G CHRISTOPHER PA Unavailable Unavailable SYMENOW, G CHRISTOPHER PA Unavailable Unavailable SYMENOW, G CHRISTOPHER PA Unavailable Unavailable SYMENOW, G CHRISTOPHER PA Unavailable Unavailable SYMENOW, G CHRISTOPHER PA Unavailable Unavailable SYMENOW, G CHRISTOPHER PA Unavailable Unavailable SYMENOW, G CHRISTOPHER PA Unavailable Unavailable SYMENOW, G CHRISTOPHER PA Unavailable Unavailable SYMENOW, G CHRISTOPHER PA Unavailable Unavailable Mormon, Geovanna Unavailable Unavailable ARISTIDESOMAIRA CAREYEN Unavailable Unavailable Omlor, E Ismael Unavailable Omlor, E Ismael Unavailable Omlor, E Ismael Unavailable [place], Christopher DO Unavailable Unavailable Liana, Christopher DO Unavailable Unavailable [place], Christopher DO Unavailable Unavailable Liana, Christopher DO Unavailable Unavailable Liana, Christopher DO Unavailable Unavailable [place], Christopher DO Unavailable Unavailable [place], Christopher DO Unavailable Unavailable Liana, Christopher DO Unavailable Unavailable Liana, Christopher DO Unavailable Unavailable [place], Christopher DO Unavailable Unavailable BASINET, JOHN Unavailable Unavailable O'TRE, L ROSALES Unavailable Unavailable Steckel, M Eli RPA-C Unavailable Unavailable Steckel, M Eli RPA-C Unavailable Unavailable Steckel, M Eli RPA-C Unavailable Unavailable Steckel, M Eli RPA-C Unavailable Unavailable Steckel, M Eli RPA-C Unavailable Unavailable Steckel, M Eli RPA-C Unavailable Unavailable Steckel, M Eli RPA-C Unavailable Unavailable Steckel, M Eli RPA-C Unavailable Unavailable Steckel, M Eli RPA-C Unavailable Unavailable Steckel, M Eli RPA-C Unavailable Unavailable Steckel, M Eli RPA-C Unavailable Unavailable Steckel, M Eli RPA-C Unavailable Unavailable Steckel, M Eli RPA-C Unavailable Unavailable Steckel, M Eli RPA-C Unavailable Unavailable Steckel, M Eli RPA-C Unavailable Unavailable Steckel, M Eli RPA-C Unavailable Unavailable Steckel, M Eli RPA-C Unavailable Unavailable Steckel, M Eli RPA-C Unavailable Unavailable Steckel, M Eli RPA-C Unavailable Unavailable Steckel, M Eli RPA-C Unavailable Unavailable Steckel, M Eli RPA-C Unavailable Unavailable Steckel, M Eli RPA-C Unavailable Unavailable Steckel, M Eli RPA-C Unavailable Unavailable Steckel, M Eli RPA-C Unavailable Unavailable Steckel, M Eli RPA-C Unavailable Unavailable Sydney Ballard MD Unavailable Unavailable Sydney Ballard MD Unavailable Unavailable Sydney Ballard MD Unavailable Unavailable Sydney Ballard MD Unavailable Unavailable Sydney Ballard MD Unavailable Unavailable Sydney Ballard MD Unavailable Unavailable Sydney Ballard MD Unavailable Unavailable Sydney Ballard MD Unavailable Unavailable Sydney Ballard MD Unavailable Unavailable Sydney Ballard MD Unavailable Unavailable Sydney Ballard MD Unavailable Unavailable Sydney Ballard MD Unavailable Unavailable Sydney Ballard MD Unavailable Unavailable Sydney Ballard MD Unavailable Unavailable Sydney Ballard MD Unavailable Unavailable Sydney Ballard MD Unavailable Unavailable ySdney Ballard MD Unavailable Unavailable Sydney Ballard MD Unavailable Unavailable Sydney Ballard MD Unavailable Unavailable Sydney Ballard MD Unavailable Unavailable Sydney Ballard MD Unavailable Unavailable Sydney Ballard MD Unavailable Unavailable Sydney Ballard MD Unavailable Unavailable Sydney Ballard MD Unavailable Unavailable Sydney Ballard MD Unavailable Unavailable Sydney Ballard MD Unavailable Unavailable Sydney Ballard MD Unavailable Unavailable Sydney Ballard MD Unavailable Unavailable Sydney Ballard MD Unavailable Unavailable Sydney Ballard MD Unavailable Unavailable Sydney Ballard MD Unavailable Unavailable Sydney Ballard MD Unavailable Unavailable Sydney Ballard MD Unavailable Unavailable Sydney Ballard MD Unavailable Unavailable Sydney Ballard MD Unavailable Unavailable Sydney Ballard MD Unavailable Unavailable Sydney Ballard MD Unavailable Unavailable Sydney Ballard MD Unavailable Unavailable Sydney Ballard MD Unavailable Unavailable Sydney Ballard MD Unavailable Unavailable Sydney Ballard MD Unavailable Unavailable Sydney Ballard MD Unavailable Unavailable Sydney Ballard MD Unavailable Unavailable Sydney Ballard MD Unavailable Unavailable Sydney Ballard MD Unavailable Unavailable Sydney Ballard MD Unavailable Unavailable Sydney Ballard MD Unavailable Unavailable Sydney Ballard MD Unavailable Unavailable Sydney Ballard MD Unavailable Unavailable Sydney Ballard MD Unavailable Unavailable Sydney Ballard MD Unavailable Unavailable Sydney Ballard MD Unavailable Unavailable Sydney Ballard MD Unavailable Unavailable Sydney Ballard MD Unavailable Unavailable Sydney Ballard MD Unavailable Unavailable Sydney Ballard MD Unavailable Unavailable Sydney Ballard MD Unavailable Unavailable Sydney Ballard MD Unavailable Unavailable Sydney Ballard MD Unavailable Unavailable Sydney Ballard MD Unavailable Unavailable Sydney Ballard MD Unavailable Unavailable Sydney Ballard MD Unavailable Unavailable Sydney Ballard MD Unavailable Unavailable Sydney Ballard MD Unavailable Unavailable Sydney Ballard MD Unavailable Unavailable Sydney Ballard MD Unavailable Unavailable Sydney Ballard MD Unavailable Unavailable Sydney Ballard MD Unavailable Unavailable Sydney Ballard MD Unavailable Unavailable Sydney Ballard MD Unavailable Unavailable Sydney Ballard MD Unavailable Unavailable Sydney Ballard MD Unavailable Unavailable Sydney Ballard MD Unavailable Unavailable Sydney Ballard MD Unavailable Unavailable SENSKA, C KALPANA FIELD RETURN REPAIRER Unavailable Unavailable SENSKA, C KALPANA FIELD RETURN REPAIRER Unavailable Unavailable SENSKA, C KALPANA FIELD RETURN REPAIRER Unavailable Unavailable SENSKA, C KALPANA FIELD RETURN REPAIRER Unavailable Unavailable SENSKA, C KALPANA FIELD RETURN REPAIRER Unavailable Unavailable SENSKA, C KALPANA FIELD RETURN REPAIRER Unavailable Unavailable SENSKA, C KALPANA FIELD RETURN REPAIRER Unavailable Unavailable SENSKA, C KALPANA FIELD RETURN REPAIRER Unavailable Unavailable SENSKA, C KALPANA FIELD RETURN REPAIRER Unavailable Unavailable SENSKA, C KALPANA FIELD RETURN REPAIRER Unavailable Unavailable SENSKA, C KALPANA FIELD RETURN REPAIRER Unavailable Unavailable SENSKA, C KALPANA FIELD RETURN REPAIRER Unavailable Unavailable SENSKA, C KALPANA FIELD RETURN REPAIRER Unavailable Unavailable SENSKA, C KALPANA FIELD RETURN REPAIRER Unavailable Unavailable SENSKA, C KALPANA FIELD RETURN REPAIRER Unavailable Unavailable PASNICIUC, Fox LOVE MD Unavailable Unavailable PASNICIUC, Fox LOVE MD Unavailable Unavailable PASNICIUC, Fox LOVE MD Unavailable Unavailable PASNICIUC, Fox LOVE MD Unavailable Unavailable PASNICIUC, Fox LOVE MD Unavailable Unavailable PASNICIUC, Fox LOVE MD Unavailable Unavailable PASNICIUC, Fox LOVE MD Unavailable Unavailable PASNICIUC, Fox LOVE MD Unavailable Unavailable PASNICIUC, Fox LOVE MD Unavailable Unavailable PASNICIUC, Fox LOVE MD Unavailable Unavailable PASNICIUC, Fox LOVE MD Unavailable Unavailable PASNICIUC, Fox LOVE MD Unavailable Unavailable PASNICIUC, Fox LOVE MD Unavailable Unavailable PASNICIUC, Fox LOVE MD Unavailable Unavailable PASNICIUC, Fox LOVE MD Unavailable Unavailable PASNICIUC, Fox LOVE MD Unavailable Unavailable PASNICIUC, Fox LOVE MD Unavailable Unavailable PASNICIUC, Fox LOVE MD Unavailable Unavailable John Moody MD . Unavailable John Moody MD . Unavailable John Moody MD . Unavailable John Moody MD . Unavailable John Moody MD . Unavailable John Moody MD . Unavailable John Moody MD . Unavailable John Moody MD . Unavailable John Moody MD . Unavailable Fransisco MD, John . Unavailable Fransisco MD, John . Unavailable Fransisco MD, John . Unavailable Fransisco MD, John . Unavailable Fransisco MD, John . Unavailable Fransisco MD, John . Unavailable Fransisco MD, John . Unavailable Fransisco MD, John . Unavailable Fransisco MD, John . Unavailable Fransisco MD, John . Unavailable Fransisco MD, John . Unavailable Fransisco MD, John . Unavailable Fransisco MD, John . Unavailable Fransisco MD, John . Unavailable Fransisco MD, John . Unavailable Fransisco MD, John . Unavailable Fransisco MD, John . Unavailable Fransisco MD, John . Unavailable Fransisco MD, John . Unavailable Fransisco MD, John . Unavailable Fransisco MD, John . Unavailable Fransisco MD, John . Unavailable Fransisco MD, John . Unavailable Fransisco MD, John . Unavailable Fransisco MD, John . Unavailable Re-disclosure Warning The records that you are about to access may contain information from federally-assisted alcohol or drug abuse programs. If such information is present, then the following federally mandated warning applies: This information has been disclosed to you from records protected by federal confidentiality rules (42 CFR part 2). The federal rules prohibit you from making any further disclosure of this information unless further disclosure is expressly permitted by the written consent of the person to whom it pertains or as otherwise permitted by 42 CFR part 2. A general authorization for the release of medical or other information is NOT sufficient for this purpose. The Federal rules restrict any use of the information to criminally investigate or prosecute any alcohol or drug abuse patient.The records that you are about to access may contain highly sensitive health information, the redisclosure of which is protected by Article 27-F of the [facility] Public Health law. If you continue you may have access to information: Regarding HIV / AIDS; Provided by facilities licensed or operated by the [facility] Office of Mental Health; or Provided by the [facility] Office for People With Developmental Disabilities. If such information is present, then the following [facility] mandated warning applies: This information has been disclosed to you from confidential records which are protected by state law. State law prohibits you from making any further disclosure of this information without the specific written consent of the person to whom it pertains, or as otherwise permitted by law. Any unauthorized further disclosure in violation of state law may result in a fine or half-way sentence or both. A general authorization for the release of medical or other information is NOT sufficient authorization for further disc losure. 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 Unknown Female Problem MEDENT ([facility]) Encounters Encounter Providers Location Date Indications Data Source(s ) Outpatient Attender: John Moody MD 05/05/2021 12:00:00 A M [facility] Outpatient Attender: John Moody MD 04/28/2021 12:00:00 A M [facility] Outpatient Referrer: ISMAEL ANAND 04/25/2021 12:00:00 AM E [facility] Outpatient Referrer: ISMAEL ANAND 04/21/2021 12:00:0 0 AM EST Shortness of breath [facility] Shortness of breath Outpatient Referrer: John Moody MD 04/21/2021 12:0 0:00 AM [facility] [place] Shortness of breath [facility] Shortness of breath Admission cancelled. Disregard status an d admitted date. Outpatient Attender: John Moody MD 04/21/2021 12:00:00 A M [facility] Outpatient Attender: Eli Casper RPA-CReferrer: Miquel Ballard MD EMERGENCY ROOM- LAB NOT ORDERED BY [facility] 04/18/2021 12:08:00 PM [facility] [place] - 04/18/2021 12:08:00 PM [facility] Outpatient Attender: OBDULIA Scruggsender: DEFAULT ED 04/07/2021 12:00:00 AM [facility] Outpatient Attender: Ismael Singleton er: ISMAEL Haqender: John Moody MD [id number] 03/24/2021 12:00:00 AM EDT - 03/24/2021 04:03:26 PM [facility] Outpatient Attender: YUE Wilkinsender: DEFAULT ED 03/10/2021 12:00:00 AM [facility] Outpatient Attender: John Moody MD Dinesh-ONCCACTR 2020 12:00:00 AM EDT - 02/24/2021 03:00:29 PM [facility] Outpatient Attender: John Moody MD 02/03/2021 12:00:00 A M [facility] Outpatient Attender: KATE RIVERA MD 01/31/2021 12:00: 00 AM [facility] Outpatient Attender: Mohit Pro [facility] Attender: KALPANA WASHINGTON NP [id number] 2020 12:00:00 AM EDT - 01/20/2021 03:31:51 PM [facility] Outpatient Attender: KATE RIVERA MD 01/17/2021 12:00: 00 AM [facility] Outpatient Attender: John Arango-ONCCACTR 2020 12:00:00 AM EDT - 01/06/2021 03:48:12 PM [facility] Outpatient Attender: KATE RIVERA MD 01/03/2021 12:00: 00 AM [facility] Outpatient Attender: KATE RIVERA MD 12/27/2020 12:00: 00 AM [facility] Outpatient Attender: KALPANA WASHINGTON NP A-ONCCACTR 2020 12:00:00 AM EDT - 12/23/2020 03:52:43 PM [facility] Outpatient Attender: John Moody MD A-ONCCACTR 2020 12:00:00 AM EDT - 2020 04:13:08 PM [facility] Outpatient Attender: John Moody MD [id number] 2020 12:00:00 AM EDT - 11/23/2020 03:41:13 PM [facility] Outpatient Attender: John Moody MD [id number] 2020 12:00:00 AM EDT - 11/09/2020 03:34:08 PM EDT 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[facility] 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 Outpatient Attender: John Moody MD 11/02/2020 12:00:00 A M [facility] Outpatient Attender: John Moody MD 07Dinesh-ONCCACTR 2020 12:00:00 AM EDT - 10/26/2020 12:42:56 PM EDT 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[facility] 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 Outpatient Attender: John Moody MD 10/19/2020 12:00:00 A M [facility] Outpatient Attender: John Moody MD 10/05/2020 12:00:00 A M [facility] Outpatient Attender: Geovanna CheungReferrer: John HughesA-DENUHC 09/22/2020 12:00:00 AM EDT - 09/22/2020 12:34:58 PM EDT Encounter for dental examination and cleaning without abnormal findings [facility] Encounter for dental examination and wally aning without abnormal findings Outpatient Attender: John Moody MD [id number] 2020 12:00:00 AM EDT - 09/21/2020 03:26:20 PM EDT 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[facility] 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 Outpatient Attender: KATE RIVERA MDReferrer: Dinesh Casper RPA-C [id number] 09/21/2020 12:00:00 AM EDT Encounter for palliative care [facility] Encounter for palliative care Outpatient Attender: John Moody MD 09/07/2020 12:00:00 A M [facility] Outpatient Attender: Eli CARROLLC [id number] 0 09/06/2020 12:00:00 AM EDT - 09/06/2020 03:11:35 PM EDT 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[facility] 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 Outpatient Attender: ROSALES HughesA-XXUHSURG 021 12:00:00 AM EDT - 08/26/2020 11:24:19 AM EDT [facility] fol Outpatient Attender: John Moody MD 07Dinesh-ONCCACTR 2020 12:00:00 AM EDT - 08/24/2020 01:59:22 PM EDT 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[facility] 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 Outpatient Attender: John Moody MD 08/24/2020 12:00:00 A M [facility] Outpatient Attender: Heather Helton MD 08/12/2020 12:00:00 AM [facility] Outpatient Attender: Heather Arango-ONCCACTR 07/05 12:00:00 AM EST - 07/27/2020 02:30:03 PM EST 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[facility] 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 Outpatient Attender: John Moody MD 06/24/2020 12:00:00 A M [facility] Outpatient Attender: John HughesA-ONCCACTR 2020 12:00:00 AM EST - 06/27/2020 08:40:05 AM EST 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[facility] 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 Outpatient [address] [facility] [address] 06/21/2020 12:00:00 AM EST eCW1 ([facility]) Outpatient Attender: Eli Arango-ONCCACTEliane 1 12:00:00 AM EST - 06/01/2020 03:54:45 PM EST 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[facility] 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 Outpatient Attender: John Moody MDAdmitter: John Arango-ONCCACTR 05/13/2020 12:00:00 AM EST - 05/13/2020 03:12:44 PM EST 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[facility] 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 Outpatient Attender: John Arango-ONCCACTR 2019 12:00:00 AM EST - 04/22/2020 04:00:03 PM EST 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[facility] 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 Outpatient Attender: oJhn Arango-ONCCACTR 2019 12:00:00 AM EDT - 04/01/2020 03:21:22 PM EDT 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[facility] 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 Outpatient Attender: John Arango-ONCCACTEliane 2019 12:00:00 AM EDT - 03/11/2020 02:49:47 PM EDT 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 Medications Medication Brand Name Start Date Product Form Dose Route Admi nistrative Instructions Pharmacy Instructions Status Indications Reaction Description Data Source(s) Levofloxacin 500 MG Oral Tablet levoFLOXacin 500 MG Or al Tablet (Levaquin) levoFLOXacin 500 MG Oral Tablet (Levaquin) 04/21/2021 12:00:00 AM EST 500 mg Oral active Take 1 tablet by prudencio th daily for 10 days [facility] atorvastatin 40 MG Oral Tablet Atorvastatin Calcium 01/25/2021 1 2:00:00 AM EDT ORAL active MEDENT ( [facility]) Lisinopril 5 MG Oral Tablet Lisinopril 01/25/2021 12:00:00 AM EDT ORAL active MED[facility] ([facility]) Aspirin 81 MG Chewable Tablet Aspirin 81 Low Dose 01/25/2021 12:00: 00 AM EDT ORAL active [facility] ([facility]) Calcium Carbonate 1500 MG / Cholecalciferol 800 UNT Oral Tab let Calcium + D3 01/25/2021 12:00:00 AM EDT active [facility] ([facility]) CARBOplatin (PARAPLATIN) 291 mg in sodium chloride 0.9 % robin mo infusion 01/20/2021 11:15:00 AM EDT 290.7 mg Intravenous c ompleted 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
Hazardous drug. Follow precautions. Dispose of properly.
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
Irritant
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
Give 30 minutes prior to chemo.
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
Give prior to chemotherapy.
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
Give prior to chemotherapy
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
Hazardous drug. Follow precautions. Dispose of properly.
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
Irritant
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
Give prior to chemotherapy.
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
Give 30 minutes prior to chemo.
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
Give prior to chemotherapy
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
Hazardous drug. Follow precautions. Dispose of properly.
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
Irritant
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
Give 30 minutes prior to chemo.
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
Give prior to chemotherapy.
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
Give prior to chemotherapy
[facility] 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u rinary bladder Medication administered onsite Nitroglycerin 0.4 MG Sublingual Tablet N itroglycerin 0.4 MG Sublingual Tablet Sublingual (NITROSTAT) Nitroglycerin 0.4 MG Sublingual Tablet S ublingual (NITROSTAT) 12/23/2020 12:00:00 AM EDT 0.4 mg Sub[address] ac tive Place 1 tablet under the tongue every 5 (five) minutes as needed for Chest pain [facility] 0.4 mg 12/23/2020 12:00:00 AM EDT tablet, sublingual [address]ACE ONE TABLET UNDER THE TONGUE EVERY 5 MINUTES FOR UP TO 3 DOSES NEEDED FOR CHEST PAIN. IF CHEST PAIN STILL PERSISTS CONTACT [address] ONE TABLET UNDER THE TONGUE EVERY 5 MINUTES FOR UP TO 3 DOSES NEEDED FOR CHEST PAIN. 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
Hazardous drug. Follow precautions. Dispose of properly.
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
Irritant
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
Give prior to chemotherapy
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
Give prior to chemotherapy.
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
Give 30 minutes prior to chemo.
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
Hazardous drug. Follow precautions. Dispose of properly.
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
Irritant
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
Give 30 minutes prior to chemo.
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
Give prior to chemotherapy.
[facility] 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u rinary bladder Medication administered onsite Lorazepam 0.5 MG Oral Tablet LORazepam (ATIVAN) tablet 0.5 mg LORazepam (ATIVAN) tablet 0.5 mg 11/23/2020 09:45:00 AM EDT 0.5 mg Oral completed 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 0.5 mg, O ral, Once, On Sat11/23/20 at 0945, For 1 dose
Give prior to chemotherapy
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
Hazardous drug. Follow precautions. Dispose of properly.
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
Irritant
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
Give prior to chemotherapy.
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
Give 30 minutes prior to chemo.
[facility] 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u rinary bladder Medication administered onsite Lorazepam 0.5 MG Oral Tablet LORazepam (ATIVAN) tablet 0.5 mg LORazepam (ATIVAN) tablet 0.5 mg 11/09/2020 10:00:00 AM EDT 0.5 mg Oral completed 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 0.5 mg, O ral, Once, On Sat11/09/20 at 1000, For 1 dose
Give prior to chemotherapy
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
Hazardous drug. Follow precautions. Dispose of properly.
[facility] 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u rinary bladder Medication administered onsite gemcitabine (GEMZAR) 1,910 mg in sodium chloride 0.9 % 250 m L chemo infusion 10/26/2020 10:45:00 AM EDT 1000 mg/m2 Intravenous completed 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 1,910 mg (1,000 mg/m2 1.91 m2), Intravenous, Administer over 30 Minutes, Once, On Sat10/26/20 at 1045, For 1 dose
Irritant
[facility] 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u rinary bladder Medication administered onsite 1.7 ML denosumab 70 MG/ML Injection denosumab (XGEVA) injection 120 mg denosumab (XGEVA) injection 120 mg 10/26/2020 10:15:00 AM EDT 120 mg Subcutan eous completed 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 120 mg, Subcutaneous, Once, On Sat10/26/20 at 1015, For 1 dose [facility] 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u rinary bladder Medication administered onsite palonosetron (ALOXI) 0.25 MG/5ML injection syringe 0.25 mg [id number] 10/26/2020 10:15:00 AM EDT 0.25 mg Intravenous c ompleted 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
Give 30 minutes prior to chemo.
[facility] 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u rinary bladder Medication administered onsite Dexamethasone 4 MG Oral Tablet dexamethasone (DECADRON ) tablet 8 mg dexamethasone (DECADRON) tablet 8 mg 10/26/2020 10:15:00 AM EDT 8 mg Oral completed 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 8 mg, Oral, Once, On Sat10/26/20 at 1015, For 1 dose
Give prior to chemotherapy.
[facility] 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u rinary bladder Medication administered onsite Lorazepam 0.5 MG Oral Tablet LORazepam (ATIVAN) tablet 0.5 mg LORazepam (ATIVAN) tablet 0.5 mg 10/26/2020 10:15:00 AM EDT 0.5 mg Oral completed 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 0.5 mg, O ral, Once, On Sat10/26/20 at 1015, For 1 dose
Give prior to chemotherapy
[facility] 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u rinary bladder Medication administered onsite alteplase (CATHFLO) injection 2 mg [id number] 10/26/2020 08:45:00 AM EDT 2 mg Intracatheter completed 2 mg, Intra catheter, Once, On Sat10/26/20 at 0845, For 1 dose
To be instilled by PICC team or IR nurse only for at least 30 minutes
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
Hazardous drug. Follow precautions. Dispose of properly.
[facility] 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u rinary bladder Medication administered onsite gemcitabine (GEMZAR) 1,900 mg in sodium chloride 0.9 % 250 m L chemo infusion 09/21/2020 10:30:00 AM EDT 1000 mg/m2 Intravenous completed 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 1,900 mg (1,000 mg/m2 1.9 m2), Intravenous, Administer over 30 Minutes, Once, On Sat09/21/20 at 1030, For 1 dose
Irritant
[facility] 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u rinary bladder Medication administered onsite palonosetron (ALOXI) 0.25 MG/5ML injection syringe 0.25 mg [id number] 09/21/2020 10:00:00 AM EDT 0.25 mg Intravenous c ompleted 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 0.25 mg, Intravenous, Once, On Sat09/21/20 at 1000, For 1 dose
Give 30 minutes prior to chemo.
[facility] 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u rinary bladder Medication administered onsite Dexamethasone 4 MG Oral Tablet dexamethasone (DECADRON ) tablet 8 mg dexamethasone (DECADRON) tablet 8 mg 09/21/2020 10:00:00 AM EDT 8 mg Oral completed 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 8 mg, Oral, Once, On Sat09/21/20 at 1000, For 1 dose
Give prior to chemotherapy.
[facility] 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u rinary bladder Medication administered onsite Lorazepam 0.5 MG Oral Tablet LORazepam (ATIVAN) tablet 0.5 mg LORazepam (ATIVAN) tablet 0.5 mg 09/21/2020 10:00:00 AM EDT 0.5 mg Oral completed 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 0.5 mg, O ral, Once, On Sat09/21/20 at 1000, For 1 dose
Give prior to chemotherapy
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
Hazardous drug. Follow precautions. Dispose of properly.
[facility] 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u rinary bladder Medication administered onsite gemcitabine (GEMZAR) 1,900 mg in sodium chloride 0.9 % 250 m L chemo infusion 09/06/2020 09:45:00 AM EDT 1000 mg/m2 Intravenous completed 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 1,900 mg (1,000 mg/m2 1.9 m2), Intravenous, Administer over 30 Minutes, Once, 09/06/20 at 0945, For 1 dose
Irritant
[facility] 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u rinary bladder Medication administered onsite sodium chloride 0.9 % bolus 1,000 mL [id number] 09/06/2020 09:30: 00 AM EDT 1000 mL Intravenous completed Malignant neopl asm of anterior wall of urinary bladder 1,000 mL, Intravenous, Once, 09/06/20 at 0930, For 1 dose
667 cc/hr
[facility] 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u rinary bladder Medication administered onsite Lorazepam 0.5 MG Oral Tablet LORazepam (ATIVAN) tablet 0.5 mg LORazepam (ATIVAN) tablet 0.5 mg 09/06/2020 09:15:00 AM EDT 0.5 mg Oral completed 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 0.5 mg, O ral, Once, Sat09/06/20 at 0915, For 1 dose
Give prior to chemotherapy
[facility] 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u rinary bladder Medication administered onsite palonosetron (ALOXI) 0.25 MG/5ML injection syringe 0.25 mg [id number] 09/06/2020 09:15:00 AM EDT 0.25 mg Intravenous c ompleted 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 0.25 mg, Intravenous, Once, Sat09/06/20 at 0915, For 1 dose
Give 30 minutes prior to chemo.
[facility] 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u rinary bladder Medication administered onsite Dexamethasone 4 MG Oral Tablet dexamethasone (DECADRON ) tablet 8 mg dexamethasone (DECADRON) tablet 8 mg 09/06/2020 09:15:00 AM EDT 8 mg Oral completed 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 8 mg, Oral, Once, Sat09/06/20 at 0915, For 1 dose
Give prior to chemotherapy.
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
Hazardous drug. Follow precautions. Dispose of properly.
[facility] 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u rinary bladder Medication administered onsite gemcitabine (GEMZAR) 1,930 mg in sodium chloride 0.9 % 250 m L chemo infusion 08/24/2020 12:00:00 PM EDT 1000 mg/m2 Intravenous completed 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 1,930 mg (1,000 mg/m2 1.93 m2), Intravenous, Administer over 30 Minutes, Once, Sat08/24/20 at 1200, For 1 dose
Irritant
[facility] 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u rinary bladder Medication administered onsite palonosetron (ALOXI) 0.25 MG/5ML injection syringe 0.25 mg 6 [id number] 08/24/2020 11:30:00 AM EDT 0.25 mg Intravenous c ompleted 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 0.25 mg, Intravenous, Once, Sat08/24/20 at 1130, For 1 dose
Give 30 minutes prior to chemo.
[facility] 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u rinary bladder Medication administered onsite Lorazepam 0.5 MG Oral Tablet LORazepam (ATIVAN) tablet 0.5 mg LORazepam (ATIVAN) tablet 0.5 mg 08/24/2020 11:30:00 AM EDT 0.5 mg Oral completed 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 0.5 mg, O ral, Once, Sat08/24/20 at 1130, For 1 dose
Give prior to chemotherapy
[facility] 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u rinary bladder Medication administered onsite Dexamethasone 4 MG Oral Tablet dexamethasone (DECADRON ) tablet 8 mg dexamethasone (DECADRON) tablet 8 mg 08/24/2020 11:30:00 AM EDT 8 mg Oral completed 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 8 mg, Oral, Once, Sat08/24/20 at 1130, For 1 dose
Give prior to chemotherapy.
[facility] 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u rinary bladder Medication administered onsite sodium chloride 0.9 % bolus 1,000 mL [id number] 08/24/2020 11:15: 00 AM EDT 1000 mL Intravenous completed Malignant neopl asm of anterior wall of urinary bladder 1,000 mL, Intravenous, at 66 7 mL/hr, Once, Sat08/24/20 at 1115, For 1 dose
667 cc/hr
[facility] 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u rinary bladder Medication administered onsite Ondansetron 8 MG Oral Tablet Ondansetron HCl 8 MG Oral Tablet (ZOFRAN) Ondansetron HCl 8 MG Oral Tablet (ZOFRAN) 08/24/2020 12:00:00 AM EDT 8 mg Oral active 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 Take 1 tablet by mouth every 8 (eight) hours as needed for Nausea or Vomiting [facility] 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u rinary bladder Prochlorperazine 10 MG Oral Tablet Proch lorperazine Maleate 10 MG Oral Tablet (COMPAZINE) Prochlorperazine Maleate 10 MG Oral Tablet (COMPAZINE) 08/24/2020 12:00:00 AM EDT 10 mg Oral active Mireya gnant 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 Take 1 tablet by mouth every 6 (six) hours as needed (Nausea/Vomiting) [facility] 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u rinary bladder Baclofen 10 MG Oral Tablet Baclofen 10 MG Oral Tablet (LIORESAL) Baclofen 10 MG Oral Tablet (LIORESAL) 08/24/2020 12:00:00 AM EDT 10 mg Oral aborted Take 1 tablet by mouth Three times daily PRN for hiccups [facility] Baclofen 10 MG Oral Tablet Baclofen 10 MG Oral Tablet (LIORESAL) Baclofen 10 MG Oral Tablet (LIORESAL) 08/24/2020 12:00:00 AM EDT 10 mg Oral completed Take 1 tablet by mouth Three times daily PRN for hiccu ps [facility] 100 mg 06/23/2020 12:00:00 AM EST tablet 6 TAKE ONE TABLET BY MOUTH ONCE DAILY NEEDED TAKE ONE TABLET BY MOUTH ONCE DAILY NEEDED SOLD: 06/26/19 [facility] sildenafil 100 MG Oral Tablet [Viagra] Viagra 100 MG Viagra 100 MG 06/21/2020 12:00:00 AM EST 1.0 {tablet_as_needed} active Viagra 100 MG eC1 ([facility]) sodium chloride 0.9 % 50 mL with alliance [id number] pembrolizumab 200 mg 06/01/2020 03:00:00 PM EST Intravenous c ompleted 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
Infuse via 0.2 micron filter. Line primed with drug
[facility] 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u rinary bladder Medication administered onsite sodium chloride 0.9 % 50 mL with Giiv [id number] pembrolizumab 200 mg 05/13/2020 02:15:00 PM EST Intravenous c ompleted 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 Intravenous, Once, Fr i 05/13/20 at 1415, For 1 dose
Infuse via 0.2 micron filter. Line primed with drug. Set pump vol at 25 ml, then flush with NS at same rate to empty line.
[facility] 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u rinary bladder Medication administered onsite sodium chloride 0.9 % 50 mL with Giiv [id number] pembrolizumab 200 mg 04/22/2020 02:45:00 PM EST Intravenous c ompleted 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 Intravenous, Once, Fr i 04/22/20 at 1445, For 1 dose
Infuse via 0.2 micron filter. Line primed with drug
[facility] 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u rinary bladder Medication administered onsite sodium chloride 0.9 % 50 mL with Giiv [id number] pembrolizumab 200 mg 04/01/2020 02:00:00 PM EDT Intravenous c ompleted 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 Intravenous, Once, Fr i 04/01/20 at 1400, For 1 dose
Infuse via 0.2 micron filter. Line primed with drug. No kaitlyn or adapters
[facility] 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u rinary bladder Medication administered onsite sodium chloride 0.9 % 50 mL with alliance [id number] pembrolizumab 200 mg 03/11/2020 02:00:00 PM EDT Intravenous c ompleted 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 Intravenous, Once, Fr i 03/11/20 at 1400, For 1 dose
Infuse via 0.2 micron filter. Line primed with drug
[facility] 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u rinary bladder Medication administered onsite 236-22.74-6.74 -5.86 gram 02/02/2020 12:00:00 AM EDT recon s oln 4000 TAKE PER DOCTOR'S INSTRUCTIONS FOR BOWEL PREP TAKE PER DOCTOR'S INSTRUCTIONS FOR BOWEL PREP SOLD: 03/03/2020 [facility] 5 mg 12/22/2019 12:00:00 AM EDT tablet 90 TAKE ONE TABLET BY MOUTH EVERY DAY TAKE ONE TABLET BY MOUTH EVERY DAY SOLD: 10/13/2020 [facility] atorvastatin 40 MG Oral Tablet ATORVASTATIN CALCIUM 12/22/2019 1 2:00:00 AM EDT tablet 90 TAKE ONE TABLET BY MOUTH NIGHTLY TAKE ONE TABLET BY MOUTH NIGHTLY SOLD: 10/13/2020 [facility] 5 mg 12/22/2019 12:00:00 AM EDT tablet 90 TAKE ONE TABLET BY MOUTH EVERY DAY TAKE ONE TABLET BY MOUTH EVERY DAY SOLD: 04/04/2020 [facility] 5 mg 12/22/2019 12:00:00 AM EDT tablet 90 TAKE ONE TABLET BY MOUTH EVERY DAY TAKE ONE TABLET BY MOUTH EVERY DAY SOLD: 07/10/2020 [facility] atorvastatin 40 MG Oral Tablet ATORVASTATIN CALCIUM 12/22/2019 1 2:00:00 AM EDT tablet 90 TAKE ONE TABLET BY MOUTH NIGHTLY TAKE ONE TABLET BY MOUTH NIGHTLY SOLD: 04/04/2020 [facility] atorvastatin 40 MG Oral Tablet ATORVASTATIN CALCIUM 12/22/2019 1 2:00:00 AM EDT tablet 90 TAKE ONE TABLET BY MOUTH NIGHTLY TAKE ONE TABLET BY MOUTH NIGHTLY SOLD: 07/10/2020 [facility] 81 mg 12/21/2019 12:00:00 AM EDT tablet,chewable 90 CHEW ONE TABLET BY MOUTH EVERY DAY CHEW ONE TABLET BY MOUTH EVERY DAY SOLD: 04/04/2020 [facility] 81 mg 12/21/2019 12:00:00 AM EDT tablet,chewable 90 CHEW ONE TABLET BY MOUTH EVERY DAY CHEW ONE TABLET BY MOUTH EVERY DAY SOLD: 10/13/2020 [facility] 81 mg 12/21/2019 12:00:00 AM EDT tablet,chewable 90 CHEW ONE TABLET BY MOUTH EVERY DAY CHEW ONE TABLET BY MOUTH EVERY DAY SOLD: 07/10/2020 [facility] tramadol hydrochloride 50 MG Oral Tablet traMADol HCl 50 MG Oral Tablet (ULTRAM) traMADol HCl 50 MG Oral Tablet (ULTRAM) 04/09/2019 12:00:00 AM EST aborted 1-2 tabs every 6 hours as needed for pain. MDD: 400 mg [facility] gabapentin 300 MG Oral Capsule Gabapentin 300 MG Oral Capsule (NEURONTIN) Gabapentin 300 MG Oral Capsule (NEURONTIN) 04/08/2019 12:00:00 AM EST 300 mg Oral aborted Take 1 capsule by butch fleming Three times daily for 5 days [facility] Nitroglycerin 0.4 MG Sublingual Tablet n itroglycerin (NITROSTAT) 0.4 MG SL tablet nitroglycerin (NITROSTAT) 0.4 MG SL tablet 0.4 [address] aborted Place 0.4 mg under t he tongue every 5 (five) minutes as needed for Chest pain [facility] Insurance Providers Payer name Policy type / Coverage type Policy ID Covered republican ID Covered republican's relationship to gamboa Policy [place] Plan Information [employer] [employer] MEDICAID [id number] S [id number] [employer] MEDICAID [id number] Shari 7 [id number] PENDING SALE TO [facility] [id number] S [id number] [facility] MED[facility] [id number] S [id number] MED[facility] [id number] Self [id number] MEDARDO [id number] SP [id number] 200 [facility] [id number] SP [id number] PENDING SALE TO [facility] [id number] SP [id number] ANSI-Commercial [id number] ANSI-Commercial [id number] ANSI-Commercial [id number] ANSI-Commercial [id number] ANSI-Commercial [id number] ANSI-Commercial [id number] [place] - Medicaid [facility] ([facility] [id number] Self [id number] [place] - Medicaid [facility] (O) [facility] [id number] Self [id number] ANSI-Commercial [id number] [facility] CARE MEDICAID [id number] S [id number] [facility] CARE MEDICAID MCD HMO [id number] S [id number] SELF PAY SP UNAVAILABLE S UNAVAILA BLE [place] Medicaid [facility] Health Maintenance Organization (O) [facility] [id number] Self [id number] [place] Medicaid [facility] Health Maintenance Organization ([facility]) [facility] [id number] Self [id number] SELF PAY ONLY [id number] SP [id number] SELF PAY UNAVAILABLE SP UNAVAILA BLE [facility] FINANCIAL PF UNAVAILABLE S UNAVAILABLE [facility] CARE MEDICAID [id number] S [id number] [place] [id number] S [id number] MEDARDO [id number] SP [id number] [place] [id number] SP 7 [id number] ANSI-Commercial [id number] ANSI-Commercial [id number] ANSI-Commercial [id number] Problems, Conditions, and Diagnoses Code Display Name Description Problem Type Effective Dates Data Source(s) R06.02 Shortness of breath Shortness of breath Diagnosis 1 06/21/2020 12:00:00 AM [facility] 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 MALIGNANT NEOPLASM OF ANTERIOR WALL OF B Diagnosis 04/18/2021 12:08:00 PM [facility] Z01.20 Encounter for dental examination and wally aning without abnormal findings Encounter for dental examination and cleaning without abnormal findings Diagnosis 09/22/2020 10:54:27 AM [facility] Z51.5 Encounter for palliative care Encounter for palliative care Diagnosis 09/21/2020 12:02:54 PM [facility] fol fol Diagnosis 08/26/2020 10:54:38 AM ED [facility] C67.9 Malignant tumor of urinary bladder Malignant elise or of urinary bladder Problem 01/25/2021 12:00:00 AM EDT [facility] ([facility]) H11.002 Pterygium Pterygium Problem 01/25/2021 12:00:00 AM ED T [facility] ([facility]) I25.10 Coronary arteriosclerosis Coronary arteriosclerosis Pr oblem 01/25/2021 12:00:00 AM EDT [facility] ([facility]) Z90.6 History of total cystectomy History of total cystectom y Problem 01/25/2021 12:00:00 AM EDT [facility] ([facility]) 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 Problem 06/21/2020 12:00:00 AM EST [email or web address] ([facility]) Surgeries/Procedures Procedure Description Date Indications Data Source(s) XR CHEST FRONTAL AND LATERAL 91513 <td>XR CHEST FRONTA L AND LATERAL 17086</td><td>STAT</td><td>04/21/2021 12:21 PM EST</td><td> Shortness of breath</td><td> </td> 04/21/2021 12:21:00 PM EST Shortness of breath [facility] Shortness of breath ECG ROUTINE ECG W/LEAST 12 LDS W/I&R 01/25/2021 12:00: 00 AM EDT [facility] ([facility]) INITIAL PREVENTIVE MEDICINE NEW PATIENT 40-64YRS 01/25 12:00:00 AM EDT [facility] ([facility]) BLOOD COUNT COMPLETE AUTO&AUTO DIFRNTL WBC COUNT <td>C BC AND DIFFERENTIAL</td><td>Routine</td><td>01/20/2021 9:10 AM EDT</td><td> 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</td><td> </td> 01/20/2021 09:10:00 AM EDT 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 [facility] 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u rinary bladder COMPREHENSIVE METABOLIC PANEL <td>COMPREHENSIVE METABO LIC PANEL</td><td>STAT</td><td>01/20/2021 9:10 AM EDT</td><td> 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</td><td> </td> 01/20/2021 09:10:00 AM EDT 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 [facility] 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u rinary bladder BLOOD COUNT COMPLETE AUTO&AUTO DIFRNTL WBC COUNT <td>C BC AND DIFFERENTIAL</td><td>Routine</td><td>01/06/2021 9:10 AM EDT</td><td> 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</td><td> </td> 01/06/2021 09:10:00 AM EDT 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 [facility] 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u rinary bladder BLOOD TYPING ABO <td>TYPE AND SCREEN</td><td> Routine</td><td>01/06/2021 9:10 AM EDT</td><td></td><td> </td> 01/06/2021 09:10:00 AM EDT [facility] COMPREHENSIVE METABOLIC PANEL <td>COMPREHENSIVE METABO LIC PANEL</td><td>STAT</td><td>01/06/2021 9:10 AM EDT</td><td> 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</td><td> </td> 01/06/2021 09:10:00 AM EDT 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 [facility] 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u rinary bladder BLOOD COUNT COMPLETE AUTO&AUTO DIFRNTL WBC COUNT <td>C BC AND DIFFERENTIAL</td><td>Routine</td><td>12/23/2020 8:15 AM EDT</td><td> 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</td><td> </td> 12/23/2020 08:15:00 AM EDT 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 [facility] 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u rinary bladder COMPREHENSIVE METABOLIC PANEL <td>COMPREHENSIVE METABO LIC PANEL</td><td>STAT</td><td>12/23/2020 8:15 AM EDT</td><td> 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</td><td> </td> 12/23/2020 08:15:00 AM EDT 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 [facility] 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u rinary bladder BLOOD COUNT COMPLETE AUTO&AUTO DIFRNTL WBC COUNT <td>C BC AND DIFFERENTIAL</td><td>Routine</td><td>2020 8:23 AM EDT</td><td> 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</td><td> </td> 2020 08:23:00 AM EDT 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 [facility] 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u rinary bladder COMPREHENSIVE METABOLIC PANEL <td>COMPREHENSIVE METABO LIC PANEL</td><td>STAT</td><td>2020 8:23 AM EDT</td><td> 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</td><td> </td> 2020 08:23:00 AM EDT 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 [facility] 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u rinary bladder BLOOD COUNT COMPLETE AUTO&AUTO DIFRNTL WBC COUNT <td>C BC AND DIFFERENTIAL</td><td>Routine</td><td>11/23/2020 8:30 AM EDT</td><td> 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</td><td> </td> 11/23/2020 08:30:00 AM EDT 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 [facility] 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u rinary bladder COMPREHENSIVE METABOLIC PANEL <td>COMPREHENSIVE METABO LIC PANEL</td><td>STAT</td><td>11/23/2020 8:30 AM EDT</td><td> 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</td><td> </td> 11/23/2020 08:30:00 AM EDT 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 [facility] 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u rinary bladder BLOOD COUNT COMPLETE AUTO&AUTO DIFRNTL WBC COUNT <td>C BC AND DIFFERENTIAL</td><td>Routine</td><td>11/09/2020 8:20 AM EDT</td><td> 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</td><td> </td> 11/09/2020 08:20:00 AM EDT 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 [facility] 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u rinary bladder COMPREHENSIVE METABOLIC PANEL <td>COMPREHENSIVE METABO LIC PANEL</td><td>STAT</td><td>11/09/2020 8:20 AM EDT</td><td> 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</td><td> </td> 11/09/2020 08:20:00 AM EDT 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 [facility] 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u rinary bladder BLOOD COUNT COMPLETE AUTO&AUTO DIFRNTL WBC COUNT <td>C BC AND DIFFERENTIAL</td><td>Routine</td><td>10/26/2020 8:15 AM EDT</td><td> 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</td><td> </td> 10/26/2020 08:15:00 AM EDT 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 [facility] 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u rinary bladder COMPREHENSIVE METABOLIC PANEL <td>COMPREHENSIVE METABO LIC PANEL</td><td>STAT</td><td>10/26/2020 8:15 AM EDT</td><td> 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</td><td> </td> 10/26/2020 08:15:00 AM EDT 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 [facility] Malignant neoplasm of anterior wall of u rinary bladder IN DENTAL PANORAMIC FILM <td>IN DENTAL PANORAMIC FILM</td><td>Routine</td><td>09/22/2020 11:00 AM EDT</td><td> Encounter for dental examination Malignant neoplasm of urinary bladder, unspecified site</td><td></td> 09/22/2020 11:00:00 AM EDT Malignant neoplasm of urinary bladder, u nspecified siteEncounter for dental examination [facility] Malignant neoplasm of urinary bladder, u nspecified site Encounter for dental examination IN DENTAL BITEWINGS FOUR FILMS <td>IN DENTAL BITEWINGS FOUR FILMS</td><td>Routine</td><td>09/22/2020 11:00 AM EDT</td><td> Encounter for dental examination Malignant neoplasm of urinary bladder, unspecified site</td><td></td> 09/22/2020 11:00:00 AM EDT Malignant neoplasm of urinary bladder, u nspecified siteEncounter for dental examination [facility] Malignant neoplasm of urinary bladder, u nspecified site Encounter for dental examination 27 IN INTRAORAL PERIAPICAL EA ADD <td>27 IN INTRAORAL PERIAPICAL EA ADD</td><td>Routine</td><td>09/22/2020 11:00 AM EDT</td><td> Encounter for dental examination Malignant neoplasm of urinary bladder, unspecified site</td><td></td> 09/22/2020 11:00:00 AM EDT Malignant neoplasm of urinary bladder, u nspecified siteEncounter for dental examination [facility] Malignant neoplasm of urinary bladder, u nspecified site Encounter for dental examination 25 IN INTRAORAL PERIAPICAL EA ADD <td>25 IN INTRAORAL PERIAPICAL EA ADD</td><td>Routine</td><td>09/22/2020 11:00 AM EDT</td><td> Encounter for dental examination Malignant neoplasm of urinary bladder, unspecified site</td><td></td> 09/22/2020 11:00:00 AM EDT Malignant neoplasm of urinary bladder, u nspecified siteEncounter for dental examination [facility] Malignant neoplasm of urinary bladder, u nspecified site Encounter for dental examination 11 IN INTRAORAL PERIAPICAL EA ADD <td>11 IN INTRAORAL PERIAPICAL EA ADD</td><td>Routine</td><td>09/22/2020 11:00 AM EDT</td><td> Encounter for dental examination Malignant neoplasm of urinary bladder, unspecified site</td><td></td> 09/22/2020 11:00:00 AM EDT Malignant neoplasm of urinary bladder, u nspecified siteEncounter for dental examination [facility] Malignant neoplasm of urinary bladder, u nspecified site Encounter for dental examination 7 IN INTRAORAL PERIAPICAL EA ADD <td>7 IN INTRAORAL PE RIAPICAL EA ADD</td><td>Routine</td><td>09/22/2020 11:00 AM EDT</td><td> Encounter for dental examination Malignant neoplasm of urinary bladder, unspecified site</td><td></td> 09/22/2020 11:00:00 AM EDT Malignant neoplasm of urinary bladder, u nspecified siteEncounter for dental examination [facility] Malignant neoplasm of urinary bladder, u nspecified site Encounter for dental examination 23 IN INTRAORAL PERIAPICAL FIRST F <td>23 IN INTRAORAL PERIAPICAL FIRST F</td><td>Routine</td><td>09/22/2020 11:00 AM EDT</td><td> Encounter for dental examination Malignant neoplasm of urinary bladder, unspecified site</td><td></td> 09/22/2020 11:00:00 AM EDT Malignant neoplasm of urinary bladder, u nspecified siteEncounter for dental examination [facility] Malignant neoplasm of urinary bladder, u nspecified site Encounter for dental examination 8 IN INTRAORAL PERIAPICAL FIRST F <td>8 IN INTRAORAL P ERIAPICAL FIRST F</td><td>Routine</td><td>09/22/2020 11:00 AM EDT</td><td> Encounter for dental examination Malignant neoplasm of urinary bladder, unspecified site</td><td></td> 09/22/2020 11:00:00 AM EDT Malignant neoplasm of urinary bladder, u nspecified siteEncounter for dental examination [facility] Malignant neoplasm of urinary bladder, u nspecified site Encounter for dental examination IN COMPREHENSVE ORAL EVALUATION <td>IN COMPREHENSVE OR AL EVALUATION</td><td>Routine</td><td>09/22/2020 11:00 AM EDT</td><td> Encounter for dental examination Malignant neoplasm of urinary bladder, unspecified site</td><td></td> 09/22/2020 11:00:00 AM EDT Malignant neoplasm of urinary bladder, u nspecified siteEncounter for dental examination [facility] Malignant neoplasm of urinary bladder, u nspecified site Encounter for dental examination 15 PORCELAIN CROWN (GENERIC) <td>15 PORCELAIN CROWN (GENERIC)</td><td>Routine</td><td>09/22/2020 12:00 AM EDT</td><td></td><td></td> 09/22/2020 12:00:00 AM EDT [facility] 15 ROOT CANAL (GENERIC) <td>15 ROOT CANAL (GENERIC)</td><td>Routine</td><td>09/22/2020 12:00 AM EDT</td><td></td><td></td> 09/22/2020 12:00:00 AM EDT [facility] BLOOD COUNT COMPLETE AUTO&AUTO DIFRNTL WBC COUNT <td>C BC AND DIFFERENTIAL</td><td>Routine</td><td>09/21/2020 8:35 AM EDT</td><td> 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</td><td> </td> 09/21/2020 08:35:00 AM EDT 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 [facility] Malignant neoplasm of anterior wall of u rinary bladder COMPREHENSIVE METABOLIC PANEL <td>COMPREHENSIVE METABO LIC PANEL</td><td>STAT</td><td>09/21/2020 8:35 AM EDT</td><td> 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</td><td> </td> 09/21/2020 08:35:00 AM EDT 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 [facility] Malignant neoplasm of anterior wall of u rinary bladder BLOOD COUNT COMPLETE AUTO&AUTO DIFRNTL WBC COUNT <td>C BC AND DIFFERENTIAL</td><td>Routine</td><td>09/06/2020 8:12 AM EDT</td><td> 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</td><td> </td> 09/06/2020 08:12:00 AM EDT 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 [facility] Malignant neoplasm of anterior wall of u rinary bladder COMPREHENSIVE METABOLIC PANEL <td>COMPREHENSIVE METABO LIC PANEL</td><td>STAT</td><td>09/06/2020 8:12 AM EDT</td><td> 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</td><td> </td> 09/06/2020 08:12:00 AM EDT 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 [facility] Malignant neoplasm of anterior wall of u rinary bladder BLOOD COUNT COMPLETE AUTO&AUTO DIFRNTL WBC COUNT <td>C BC AND DIFFERENTIAL</td><td>Routine</td><td>08/24/2020 8:50 AM EDT</td><td> 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</td><td> </td> 08/24/2020 08:50:00 AM EDT 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 [facility] Malignant neoplasm of anterior wall of u rinary bladder COMPREHENSIVE METABOLIC PANEL <td>COMPREHENSIVE METABO LIC PANEL</td><td>STAT</td><td>08/24/2020 8:50 AM EDT</td><td> 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</td><td> </td> 08/24/2020 08:50:00 AM EDT 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 [facility] Malignant neoplasm of anterior wall of u rinary bladder BLOOD COUNT COMPLETE AUTO&AUTO DIFRNTL WBC COUNT <td>C BC AND DIFFERENTIAL</td><td>STAT</td><td>06/01/2020 1:57 PM EST</td><td> 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</td><td> </td> 06/01/2020 01:57:00 PM EST 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 [facility] Malignant neoplasm of anterior wall of u rinary bladder THYROID STIMULATING HORMONE TSH <td>TSH</td><td>Routin e</td><td>06/01/2020 1:57 PM EST</td><td> 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</td><td> </td> 06/01/2020 01:57:00 PM EST 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 [facility] Malignant neoplasm of anterior wall of u rinary bladder THYROXINE FREE <td>T4, FREE</td><td>Routine </td><td>06/01/2020 1:57 PM EST</td><td> 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</td><td> </td> 06/01/2020 01:57:00 PM EST 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 [facility] Malignant neoplasm of anterior wall of u rinary bladder LIPASE <td>LIPASE LEVEL</td><td>STA T</td><td>06/01/2020 1:57 PM EST</td><td> 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</td><td> </td> 06/01/2020 01:57:00 PM EST 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 [facility] Malignant neoplasm of anterior wall of u rinary bladder AMYLASE <td>AMYLASE LEVEL</td><td>ST AT</td><td>06/01/2020 1:57 PM EST</td><td> 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</td><td> </td> 06/01/2020 01:57:00 PM EST 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 [facility] Malignant neoplasm of anterior wall of u rinary bladder COMPREHENSIVE METABOLIC PANEL <td>COMPREHENSIVE METABO LIC PANEL</td><td>STAT</td><td>06/01/2020 1:57 PM EST</td><td> 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</td><td> </td> 06/01/2020 01:57:00 PM EST 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 [facility] Malignant neoplasm of anterior wall of u rinary bladder BLOOD COUNT COMPLETE AUTO&AUTO DIFRNTL WBC COUNT <td>C BC AND DIFFERENTIAL</td><td>STAT</td><td>05/13/2020 1:10 PM EST</td><td> 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</td><td> </td> 05/13/2020 01:10:00 PM EST 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 [facility] Malignant neoplasm of anterior wall of u rinary bladder THYROID STIMULATING HORMONE TSH <td>TSH</td><td>Routin e</td><td>05/13/2020 1:10 PM EST</td><td> 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</td><td> </td> 05/13/2020 01:10:00 PM EST 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 [facility] Malignant neoplasm of anterior wall of u rinary bladder THYROXINE FREE <td>T4, FREE</td><td>Routine </td><td>05/13/2020 1:10 PM EST</td><td> 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</td><td> </td> 05/13/2020 01:10:00 PM EST 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 [facility] Malignant neoplasm of anterior wall of u rinary bladder LIPASE <td>LIPASE LEVEL</td><td>STA T</td><td>05/13/2020 1:10 PM EST</td><td> 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</td><td> </td> 05/13/2020 01:10:00 PM EST 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 [facility] Malignant neoplasm of anterior wall of u rinary bladder AMYLASE <td>AMYLASE LEVEL</td><td>ST AT</td><td>05/13/2020 1:10 PM EST</td><td> 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</td><td> </td> 05/13/2020 01:10:00 PM EST 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 [facility] Malignant neoplasm of anterior wall of u rinary bladder COMPREHENSIVE METABOLIC PANEL <td>COMPREHENSIVE METABO LIC PANEL</td><td>STAT</td><td>05/13/2020 1:10 PM EST</td><td> 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</td><td> </td> 05/13/2020 01:10:00 PM EST 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 [facility] Malignant neoplasm of anterior wall of u rinary bladder BLOOD COUNT COMPLETE AUTO&AUTO DIFRNTL WBC COUNT <td>C BC AND DIFFERENTIAL</td><td>STAT</td><td>04/22/2020 1:20 PM EST</td><td> 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</td><td> </td> 04/22/2020 01:20:00 PM EST 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 [facility] Malignant neoplasm of anterior wall of u rinary bladder THYROID STIMULATING HORMONE TSH <td>TSH</td><td>Routin e</td><td>04/22/2020 1:20 PM EST</td><td> 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</td><td> </td> 04/22/2020 01:20:00 PM EST 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 [facility] Malignant neoplasm of anterior wall of u rinary bladder THYROXINE FREE <td>T4, FREE</td><td>Routine </td><td>04/22/2020 1:20 PM EST</td><td> 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</td><td> </td> 04/22/2020 01:20:00 PM EST 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 [facility] Malignant neoplasm of anterior wall of u rinary bladder LIPASE <td>LIPASE LEVEL</td><td>STA T</td><td>04/22/2020 1:20 PM EST</td><td> 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</td><td> </td> 04/22/2020 01:20:00 PM EST 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 [facility] Malignant neoplasm of anterior wall of u rinary bladder AMYLASE <td>AMYLASE LEVEL</td><td>ST AT</td><td>04/22/2020 1:20 PM EST</td><td> 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</td><td> </td> 04/22/2020 01:20:00 PM EST 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 [facility] Malignant neoplasm of anterior wall of u rinary bladder COMPREHENSIVE METABOLIC PANEL <td>COMPREHENSIVE METABO LIC PANEL</td><td>STAT</td><td>04/22/2020 1:20 PM EST</td><td> 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</td><td> </td> 04/22/2020 01:20:00 PM EST 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 [facility] Malignant neoplasm of anterior wall of u rinary bladder OPERATIVE AND PROCEDURE NOTE <td>OPERATIVE AND PROCEDU RE NOTE</td><td></td><td>04/08/2020 3:23 PM EST</td><td></td><td></td> 04/08/2020 03:23:00 PM EST [facility] BLOOD COUNT COMPLETE AUTO&AUTO DIFRNTL WBC COUNT <td>C BC AND DIFFERENTIAL</td><td>Routine</td><td>04/01/2020 12:46 PM EDT</td><td> 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</td><td> </td> 04/01/2020 12:46:00 PM EDT 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 [facility] Malignant neoplasm of anterior wall of u rinary bladder PROSTATE SPECIFIC ANTIGEN TOTAL <td>PSA, TOTAL AND FREE</td><td>STAT</td><td>04/01/2020 12:46 PM EDT</td><td> 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</td><td> </td> 04/01/2020 12:46:00 PM EDT 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 [facility] Malignant neoplasm of anterior wall of u rinary bladder THYROID STIMULATING HORMONE TSH <td>TSH</td><td>Routin e</td><td>04/01/2020 12:46 PM EDT</td><td> 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</td><td> </td> 04/01/2020 12:46:00 PM EDT 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 [facility] Malignant neoplasm of anterior wall of u rinary bladder THYROXINE FREE <td>T4, FREE</td><td>Routine </td><td>04/01/2020 12:46 PM EDT</td><td> 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</td><td> </td> 04/01/2020 12:46:00 PM EDT 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 [facility] Malignant neoplasm of anterior wall of u rinary bladder LIPASE <td>LIPASE LEVEL</td><td>STA T</td><td>04/01/2020 12:46 PM EDT</td><td> 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</td><td> </td> 04/01/2020 12:46:00 PM EDT 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 [facility] Malignant neoplasm of anterior wall of u rinary bladder AMYLASE <td>AMYLASE LEVEL</td><td>ST AT</td><td>04/01/2020 12:46 PM EDT</td><td> 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</td><td> </td> 04/01/2020 12:46:00 PM EDT 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 [facility] Malignant neoplasm of anterior wall of u rinary bladder COMPREHENSIVE METABOLIC PANEL <td>COMPREHENSIVE METABO LIC PANEL</td><td>Routine</td><td>04/01/2020 12:46 PM EDT</td><td> 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</td><td> </td> 04/01/2020 12:46:00 PM EDT 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 [facility] Malignant neoplasm of anterior wall of u rinary bladder BLOOD COUNT COMPLETE AUTO&AUTO DIFRNTL WBC COUNT <td>C BC AND DIFFERENTIAL</td><td>STAT</td><td>03/11/2020 1:00 PM EDT</td><td> 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</td><td> </td> 03/11/2020 01:00:00 PM EDT 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 [facility] Malignant neoplasm of anterior wall of u rinary bladder THYROID STIMULATING HORMONE TSH <td>TSH</td><td>Routin e</td><td>03/11/2020 1:00 PM EDT</td><td> 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</td><td> </td> 03/11/2020 01:00:00 PM EDT 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 [facility] Malignant neoplasm of anterior wall of u rinary bladder THYROXINE FREE <td>T4, FREE</td><td>Routine </td><td>03/11/2020 1:00 PM EDT</td><td> 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</td><td> </td> 03/11/2020 01:00:00 PM EDT 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 [facility] Malignant neoplasm of anterior wall of u rinary bladder LIPASE <td>LIPASE LEVEL</td><td>STA T</td><td>03/11/2020 1:00 PM EDT</td><td> 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</td><td> </td> 03/11/2020 01:00:00 PM EDT 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 [facility] Malignant neoplasm of anterior wall of u rinary bladder AMYLASE <td>AMYLASE LEVEL</td><td>ST AT</td><td>03/11/2020 1:00 PM EDT</td><td> 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</td><td> </td> 03/11/2020 01:00:00 PM EDT 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 [facility] Malignant neoplasm of anterior wall of u rinary bladder COMPREHENSIVE METABOLIC PANEL <td>COMPREHENSIVE METABO LIC PANEL</td><td>STAT</td><td>03/11/2020 1:00 PM EDT</td><td> 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</td><td> </td> 03/11/2020 01:00:00 PM EDT 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 [facility] Malignant neoplasm of anterior wall of u rinary bladder Results ID Date Data Source [id number] 04/21/2021 03:30:06 PM [facility] XR CHEST FRONTAL AND LATERAL [id number] RESULTInterpreted by:Robb Veronica MDPROCEDURE INFORMATION: Exam: XR Chest Exam date and time: 04/21/2021 12:09 PM Age: 55 years old Clinical indication: Other: Shortness of breath, cough, negative covid test TECHNIQUE: Imaging protocol: XR of the chest. Views: 2 views. COMPARISON: CT Chest with contrast 06/07/2020 9:48 AM FINDINGS: Tubes, catheters and devices: Port catheter tip is at or near the caval atrial junction. Lungs: Suspect chronic interstitial disease. No consolidation. Pleural spaces: Unremarkable. No pleural effusion. No pneumothorax. Heart/Me diastinum: Unremarkable. No cardiomegaly. Bones/joints: Unremarkable. IMPRESSION: Nonacute findings.THIS DOCUMENT HAS BEEN ELECTRONICALLY SIGNED BY ROBB VERONICA MDThis document has been electronically signed by Robb Veronica MD on 04/21/2021 3:29 PM Name Value Range Interpretation Code Description Data Irish rce(s) Supporting Document(s) ID Date Data Source [id number] 04/21/2021 11:34:21 AM [facility] Service Cmnt XXX-Imp : NoneRespiratory P CR Panel : PCR ResultsMicroorganism XXX Cult : This test does NOT include the virus that causes COVID-19. See separate test for this result.HAdV DNA QI ANNALISA+non-probe : Not DetectedHCoV [id number] Nph QI ANNALISA+non-probe : Not DetectedHCoV [id number] Nph QI ANNALISA+non-probe : Not KobmbsluXVhPVB23 RNA Nph QI ANNALISA+non-probe : Not TcesdmskMCiKNE68 RNA Upper resp QI ANNALISA+probe : Not DetectedhMPV RNA Nph QINAA+non-probe : Not DetectedRV+EV RNA Nph QI ANNALISA+non-probe : Not DetectedFLUAV RNA Nph QI ANNALISA+ non-probe : Not DetectedFLUBV RNA Nph QI ANNALISA+non-probe : Not DetectedHPIV1 RNA NphQINAA+non- probe : Not DetectedHPIV2 RNA Nph QINAA+non-probe : Not DetectedHPVI3 RNA Nph ANNALISA+non-probe : Not DetectedHPIV4 RNA Nph Q ANNALISA+non-probe : Not DetectedRSV RNA Nph Q ANNALISA+non-probe : Not DetectedB pert.PT PrmtNph Q ANNALISA+non-probe : Not DetectedC pneum DNA Nph Q ANNALISA+non-probe : Not DetectedM pneum DNA Nph Q ANNALISA+non- probe : Not Detected Name Value Range Interpretation Code Description Data Irish rce(s) Supporting Document(s) ID Date Data Source [id number] 04/21/2021 08:47:07 AM [facility] Name Value Range Interpretation Code Description Data Irish rce(s) Supporting Document(s) Leukocytes [#/volume] in Blood by Automated count 17.2 10*3/uL 4-10 H [facility] Erythrocytes [#/volume] in Blood by Automated count 3.83 10*6/uL 4.6- 6.1 L [facility] Hemoglobin [Mass/volume] in Blood 12.0 g/dL 13.5-18 L [facility] Hematocrit [Volume Fraction] of Blood by Automated count 37.1 % 4 1-53 L [facility] Erythrocyte mean corpuscular volume [Entitic volume] by Auto mated count 96.8 fL 80-96 H [facility] Erythrocyte mean corpuscular hemoglobin [Entitic mass] by Automated count 31.4 pg 27-33 [facility] Erythrocyte mean corpuscular hemoglobin concentration [Mass/volume] by Automated count 32.4 g/[facility].0[facility] width [Ratio] by Automated count 16.7 % 11.5-14.5 H [facility] Platelets [#/volume] in Blood by Automated count 159 10*3/uL 150-400 [facility] Differential cell count method - Blood [facility] Neutrophils/100 leukocytes in Blood by Automated count 87 % [facility] Lymphocytes/100 leukocytes in Blood by Automated count 3 % [facility] Monocytes/100 leukocytes in Blood by Automated count 8 % [facility] Basophils/100 leukocytes in Blood by Automated count 1 % [facility] Neutrophils [#/volume] in Blood by Automated count 14.96 10*3/uL 1.8- 7.0 H [facility] Lymphocytes [#/volume] in Blood by Automated count 0.52 10*3/uL 1.2-4 .0 L [facility] Monocytes [#/volume] in Blood by Automated count 1.38 10*3/uL 0-0.8 H [facility] Basophils [#/volume] in Blood by Automated count 0.17 10*3/uL 0-0.2 [facility] Myelocytes/100 leukocytes in Blood by Manual count 1 % [facility] Myelocytes [#/volume] in Blood by Manual count 0.17 10*3/uL 0-0 H [facility] ID Date Data Source [id number] 04/21/2021 09:03:29 AM [facility] Name Value Range Interpretation Code Description Data Irish rce(s) Supporting Document(s) Albumin [Mass/volume] in Serum or Plasma by Bromocresol green (BCG) dye binding method 3.9 g/dL 3.5-5.2 [facility] Bilirubin.total [Mass/volume] in Serum or Plasma 0.4 mg/dL <1.2 [facility] Calcium [Mass/volume] in Serum or Plasma 9.1 mg/dL 8.6-10.0 [facility] Chloride [Moles/volume] in Serum or Plasma 100 mmol/L 98-107 [facility] Creatinine [Mass/volume] in Serum or Plasma 1.41 mg/dL 0.70-1.20 H [facility] Glucose [Mass/volume] in Serum or Plasma 128 mg/dL 70-140 [facility] Alkaline phosphatase [Enzymatic activity/volume] in Serum or Plasma 226 U/L 40-129 H [facility] Potassium [Moles/volume] in Serum or Plasma 4.4 mmol/L 3.4-5.1 [facility] Protein [Mass/volume] in Serum or Plasma 7.1 g/dL 6.4-8.3 [facility] Sodium [Moles/volume] in Serum or Plasma 137 mmol/L 136-145 [facility] Aspartate aminotransferase [Enzymatic activity/volume] in Serum or Plasma 46 U/L <40 H [facility] Urea nitrogen [Mass/volume] in Serum or Plasma 24 mg/dL 6-20 H [facility] Osmolality of Serum or Plasma by calculation 289 mosm/kg 275-300 [facility] Creatinine/Urea nitrogen [Mass Ratio] in Serum or Plasma 17 [facility] Bicarbonate [Moles/volume] in Serum 18 mmol/L 22-29 L [facility] Alanine aminotransferase [Enzymatic activity/volume] in Seru m or Plasma 35 U/L <41 [facility] Anion gap 3 in Serum or Plasma 19 mmol/L 8-15 H [facility] Glomerular filtration rate/1.73 sq M pre dicted among non-blacks [Volume Rate/Area] in Serum or Plasma by Creatinine-based formula (MDRD) 55 mL/min/1.73m2 >60 L [facility] Glomerular filtration rate/1.73 sq M pre dicted among blacks [Volume Rate/Area] in Serum or Plasma by Creatinine-based formula (MDRD) 64 mL/min/1.73m2 >60 [facility] ID Date Data Source [id number] 04/21/2021 09:03:29 AM [facility] Value Range Interpretation Code Description Data Irish rce(s) Supporting Document(s) Thyrotropin [Units/volume] in Serum or Plasma 4.080 u[IU]/mL 0.270-4. 200 [facility] ID Date Data Source [id number] 04/21/2021 09:38:20 AM [facility] Value Range Interpretation Code Description Data Irish rce(s) Supporting Document(s) C reactive protein [Mass/volume] in Serum or Plasma 109.3 mg/L <8.0 H [facility] ID Date Data Source [id number] 04/21/2021 10:11:00 AM [facility] Value Range Interpretation Code Description Data Irish rce(s) Supporting Document(s) Cortisol [Mass/volume] in Serum or Plasma 19.0 ug/dL [facility] Ref range for 6-10 am samples: 6.0-18.4 ug/dLRef range for 4-8 pm samples: 2.7- 10.5 ug/dLRef range not established for other times. ID Date Data Source [id number] 04/21/2021 10:19:45 AM [facility] Name Value Range Interpretation Code Description Data Irish rce(s) Supporting Document(s) Erythrocyte sedimentation rate 15 mm/hr <20 [facility] ID Date Data Source [id number] 04/21/2021 11:45:22 AM [facility] Name Value Range Interpretation Code Description Data Irish rce(s) Supporting Document(s) Procalcitonin [Mass/volume] in Serum or Plasma 0.49 ng/mL <0.10 H [facility] (NOTE) < 0.25 ng/mL Bacterial infec tion unlikely,particularly lower respiratory tract infections.0.25 -<0.50 ng/mL Low risk for progression to severe sepsis/septic shock. Localized infection is possible. Measurement done early (<6 hours) after systemic process starts may still be low.0.50 - 2.00 ng/mL Moderate risk for progression to sepsis/septic shock. > 2.00 ng/mL High risk for progression to sepsis/septic shock. ID Date Data Source [id number] 04/21/2021 12:49:22 PM [facility] Name Value Range Interpretation Code Description Data Irish rce(s) Supporting Document(s) Creatine kinase [Enzymatic activity/volume] in Serum or Plasma 51 U /L 20-200 [facility] ID Date Data Source [id number] 04/18/2021 01:20:00 PM [facility] l Name Value Range Interpretation Code Description Data Irish rce(s) Supporting Document(s) TSH 3.254 uIU/mL 0.358-3.740 [facility] ID Date Data Source [id number] 04/18/2021 12:59:00 PM [facility] l Name Value Range Interpretation Code Description Data Irish rce(s) Supporting Document(s) GLUCOSE 99 mg/dL 74-106 [facility] BLOOD UREA NITROGEN 20 mg/dL 7-18 H [facility] ital CREATININE 1.47 mg/dl 0.70-1.30 H [facility] SODIUM 142 mmol/L 136-145 [facility] POTASSIUM 5.2 mmol/L 3.5-5.1 H [facility] CHLORIDE 105 mmol/L 98-107 [facility] CO2 28 mmol/L 21-32 [facility] CALCIUM 8.4 mg/dL 8.5-10.1 L [facility] ANION GAP 9.0 mmol/L 5-12 [facility] GLOMERULAR FILTRATION RATE 50 mL/min [facility] GFR IS CALCULATED IN mL/min/1.73m2 NINA L FUNCTION: >90MILDLY DECREASED: 60-89MILDY TO MODERATELY DECREASED: 45-59 MODERATELY TO SEVERELY DECREASED: 30-44SEVERELY DECREASED: 15-29RENAL FAILURE: <15 AST 34 U/L 15-37 [facility] ALT 48 U/L 16-63 [facility] ALKALINE PHOSPHATASE 183 U/L 46-116 H [facility] TOTAL BILIRUBIN 0.3 mg/dL 0.2-1.0 [facility] TOTAL PROTEIN 7.1 g/dL 6.4-8.2 [facility] ALBUMIN 3.3 gm/dL 3.4-5.0 L [facility] ID Date Data Source [id number] 04/18/2021 12:28:00 PM [facility] Name Value Range Interpretation Code Description Data Irish e(s) Supporting Document(s) WHITE BLOOD COUNT 12.7 K/mm3 4.0-10.0 H [facility] oz RED BLOOD COUNT 3.75 M/mm3 4.50-6.00 L [facility] HEMOGLOBIN 12.1 gm/dL 14.0-18.0 L [facility] HEMATOCRIT 37.2 % 42.0-54.0 [facility] MEAN CELL VOLUME 99.2 fl 80-96 H [facility] l MEAN CORPUSCULAR HEMOGLOBIN 32.3 pg 27.0-31.0 H [facility] MEAN CORPUSCULAR HGB CONC 32.5 g/dl 32.0-36.0 [facility] RED CELL DISTRIBUTION WIDTH 14.2 % 10.0-14.5 [facility] PLATELET COUNT 187 K/mm3 172-450 [facility] MEAN PLATELET VOLUME 9.8 fl 9.0-13.0 [facility] pital GRAN % 70.5 % 50-80.0 [facility] IG% 1.1 % 0.0-0.2 H [facility] LYMPH % 11.0 % 25.0-50.0 L [facility] MONO % 12.5 % 2.0-10.0 H [facility] EOS % 4.6 % 0-5.0 [facility] BASO % 0.3 % 0.0-2.0 [facility] GRAN # 8.9 K/mm3 2.0-8.00 H [facility] IG# 0.1 K/mm3 0.0-0.2 [facility] LYMPH # 1.4 K/mm3 1.0-5.0 [facility] MONO # 1.6 K/mm3 0.10-1.20 H [facility] EOS # 0.6 K/mm3 0.0-0.5 H [facility] BASO # 0.0 K/mm3 0.0-0.2 [facility] ID Date Data Source [id number] 04/10/2021 09:23:15 PM [facility] Name Value Range Interpretation Code Description Data Irish rce(s) Supporting Document(s) Progress Note [facility] VBAOBr7yKmFXYfAx06/YDTouVDTej9SiKHzrEVo6SGdgSZIyK0HsSVJ2vB1fMPP1WLkFUnPeAbIrCQY2 m IlHrzJUyDdIVVrQtzALsLaLSiuZskjqLDiSG3GzQX3NVSuZ99oUMPwEVUqB7FpLOI9FkZ+Ah0WLGFsbS XpPE3XGyfS0X4bevc6Bj2nqc0EjPMyNTG9sMSu0jTraCLejpVqBtc2pWalVyvzOBVdUGXK5kA/Weber/t3f Ciqgegu3l4JBs0yosCACXiyRArbYLDNq95rgrCJs92 Kv+7/JOEoLj9Jq/8g1o3s+n18yvT3dt0NMDjx+UHxa/W+/SD4zN1+L1WRW/u2N5FQJPq5GoDqD0O7lMn 43SR5Y/P7syjEtTwupFrjh9dmZsvlD5RyC124ct45oq99tb07Rzyp3Alq6K9ut8f6aBgnmufhznjf13E nQuDek83WwysGX/xcT90QQYNHjpUeDWDmO3tClkZOg fklmfqvdv+g12QGuCCjYfXWNb1IAgQuN6inK9qfypoDiASxWZV6pyZcwRe5cu45mbx0p9gCZHCt2wXmz wmUVqErzIwKPLb0wZPQRXFG7uoBcpgLvXcsaQs+95iNGjP1stnByS06RRVv2s8oA0lu6yLDW79L6Lvi0 tWmmaamlw5YJusdong0qJ4vrCd11aIKnJQSljxf56g [file] AgICAgICAgICAgICAgICAgICAgICAgICAgICAgICAgICAgICAgICAgICAgICAgICAgICAgICAgDQogIC AgICAgICAgICAgICAgICAgICAgICAgICAgICAgICAg ICAgICAgICAgICAgICAgICAgICAgICAgICAgICAgICAgICAgICAgICAgICAgICAgICAgICAgICAgICAg ICAgICAgDQogICAgICAgICAgICAgICAgICAgICAgICAgICAgICAgICAgICAgICAgICAgICAgICAgICAg ICAgICAgICAgICAgICAgICAgICAgICAgICAgICAgIC AgICAgICAgICAgICAgICAgDQogICAgICAgICAgICAgICAgICAgICAgICAgICAgICAgICAgICAgICAgIC AgICAgICAgICAgICAgICAgICAgICAgICAgICAgICAgICAgICAgICAgICAgICAgICAgICAgICAgICAgDQ ogICAgICAgICAgICAgICAgICAgICAgICAgICAgICAg ICAgICAgICAgICAgICAgICAgICAgICAgICAgICAgICAgICAgICAgICAgICAgICAgICAgICAgICAgICAg ICAgICAgICAgDQogICAgICAgICAgICAgICAgICAgICAgICAgICAgICAgICAgICAgICAgICAgICAgICAg ICAgICAgICAgICAgICAgICAgICAgICAgICAgICAgIC AgICAgICAgICAgICAgICAgICAgDQogICAgICAgICAgICAgICAgICAgICAgICAgICAgICAgICAgICAgIC AgICAgICAgICAgICAgICAgICAgICAgICAgICAgICAgICAgICAgICAgICAgICAgICAgICAgICAgICAgIC AgDQogICAgICAgICAgICAgICAgICAgICAgICAgICAg ICAgICAgICAgICAgICAgICAgICAgICAgICAgICAgICAgICAgICAgICAgICAgICAgICAgICAgICAgICAg ICAgICAgICAgICAgDQogICAgICAgICAgICAgICAgICAgICAgICAgICAgICAgICAgICAgICAgICAgICAg ICAgICAgICAgICAgICAgICAgICAgICAgICAgICAgIC AgICAgICAgICAgICAgICAgICAgICAgDQogICAgICAgICAgICAgICAgICAgICAgICAgICAgICAgICAgIC AgICAgICAgICAgICAgICAgICAgICAgICAgICAgICAgICAgICAgICAgICAgICAgICAgICAgICAgICAgIC QuZOTlPTm7G8kyNMBtQQNpDT8dIMz8Ct1+DQoNCmVu ZSS1ecDwzB6YLB6pd0GvSJmtZCAlo7LnKEc1GK5YSWAnWHpcDH9YOXavil7DVAUnEDKcrNVFk2qxNkVi CNV1OKQlNbvtFL9RNOHpU2ryliWnEYYmBSGEHQptBTPECY6BQyRgE3LjyL66HYWVJy9+DQplbmRvYmoN KxEfNCCzr8CqRPx8RV1EWEVoBrsyy9GjChXcELHNRL suUT2FIKM6AREhJFZaIe5OOKImX529ezNsYR2VXr5FGtMlKK6rri3HMsQnVYQaBvxDUsm3GWnaUD2YaS AlFUiVam9tupHxruVBz3IihdDvfXRPcRvlDDVETSWdZDIpAK3GCNB7GBesAaDqGtZrTCWlLZswVAENIS vJWwOqN3Ult5YvCyP2ZYTiDpDaRBgnXHOgBxJ9EK50 pZdtYO2PFXZaNQErNC97UPJbSYWsRa0WUt9FEtVeUP5ysr3KCoBiONFnDqoUFxa6DWpmAX2HzSJxD8Rp dAYtu4nFIdUnH7ZECUV5TKYxAk3ZSYPyStAlCUPoTVwpSG0mFYQdFYASaWtnatV6QH7FVS0wziFnER1V ZvOvSb5yPt6TOhIxS6KiB2KjBFFdFSCYDWwcTI7BMZ pnMZ7tNT8Lh1NFiPEohA2yap0ARBPsPOSoQcesle8XDgcdI4K8hCkeWGVfIxYdDBCDDNxeGC4CGIBtSI O5GHHxMVPqVSOUPwEgQ38fXE3OH1Qek76vTrM9DTRzQdNcWOuyHW82oIcjvoVuxVPupYvnXT9FDn1+DQ plbmRvYmoNCnhyZWYNCjAgMjQNCjAwMDAwMDAwMDAg LyG6YjDhPh5PERXbNSRlBWMcOmQuLTIwRHCjMMfoYNDkGHUzIBX1EIDuTDOmGP9TWvVtWFFzRnOcCkRy UQTyYSUdrc3NQDCvNNKwTIN8XhXsVDDvKRGiCMloPWVqGJY4EPg3YSCtDQFhIO0OIjYuLKPtOSKdXxdb CNCkYXByje1LINYaYIZvOEO5OFMgWDOnEZHrSPojFR ZxZUM1ZGn2EYKgFLAtZO4QQcRyGKVuGCv4NlHmEWHySISocc7ABALrLZIgNVDhKDAbTDKnFSKfSMsxFG IkHFJ1ZWRjYYTsGVAwHV1MHqJmNRWqSCV2XdzoEQUeZVYmjh2JZZEtDZNuCFx9QHAcHAPlWGKpWKaoVL FuNAPzUMN5GVGsJKRoJV4XJfHtGKUrSzF8QSHqSMNx MSSksh3NFFCvYCHwVislJNQwHOHrVBDeNZkyLIIwSZHaLVY9VLEyRJGiEJ9CNaGqLCCiHxWlAxicUEUn AFInum3NKYNnRZYeUaJwJDTnNQBvBQSpMGluNQXuRLScHIR2UYRpLQNbTD7YSzGaKEFpEhUuQkRpNDAs EOMybb2ZOIQxDWRlXPO7FNKiMSSiJXYgZUjlSUTpWX O2SMt7AXOzVARaAL4LItEvEEljPYGTSxt7BGtoH4p5WRWmXD4MC8Amb1VnXfRpHGANGEerCH7nunKcNR DqUh7BN7pRXiqeSbXuUaYqFgG5Mrb1GYByEnk4AcP8BGM3ADuvJztgQo2dCQPdYlIrBAJbGFXqBBk6DU I9VnOrAAz2OxbnPZWxOAUzQeBwQH2NKc0SPlJ5NTK6wBDpQy4IBrJ5GjFATnWfTU5XXQp= ID Date Data Source [id number] 04/10/2021 09:23:10 PM EST [facility] Name Value Range Interpretation Code Description Data Irish rce(s) Supporting Document(s) Progress Note [facility] EHDNOy3sYsAAMsWp98/EAMsmPOYic8YhCBayDTn5LBxwVTAdD8YxDZK7iK4bICT5URqNQgYsDtFqLMV3 lbm [file] ISOxPVLaXfZ8UYEdBHJsDHYcGdBdHeXnEC8LMr7RPwA2KPR1mPFfFe6ALNK6KsIFZtXlGJ1KCTg= ID Date Data Source [id number] 04/07/2021 10:10:28 AM EDT [facility] Name Value Range Interpretation Code Description Data Irish rce(s) Supporting Document(s) Albumin [Mass/volume] in Serum or Plasma by Bromocresol green (BCG) dye binding method 3.9 g/dL 3.5[facility]5.[facility] Bil[facility].total [Mass/volume] in Serum or Plasma 0.2 mg/dL <1.2 [facility] Calcium [Mass/volume] in Serum or Plasma 8.3 mg/dL 8.6-10.0 L [facility] Chloride [Moles/volume] in Serum or Plasma 101 mmol/L 98-107 [facility] Creatinine [Mass/volume] in Serum or Plasma 1.15 mg/dL 0.70-1.20 [facility] Glucose [Mass/volume] in Serum or Plasma 89 mg/dL 70-140 [facility] Alkaline phosphatase [Enzymatic activity/volume] in Serum or Plasma 122 U/L 40-129 [facility] Potassium [Moles/volume] in Serum or Plasma 4.3 mmol/L 3.4-5.1 [facility] Protein [Mass/volume] in Serum or Plasma 6.3 g/dL 6.4-8.3 L [facility] Sodium [Moles/volume] in Serum or Plasma 133 mmol/L 136-145 L [facility] Aspartate aminotransferase [Enzymatic activity/volume] in Serum or Plasma 20 U/L <40 [facility] Urea nitrogen [Mass/volume] in Serum or Plasma 20 mg/dL 6-20 [facility] Osmolality of Serum or Plasma by calculation 277 mosm/kg 275-300 [facility] Creatinine/Urea nitrogen [Mass Ratio] in Serum or Plasma 17 [facility] Bicarbonate [Moles/volume] in Serum 21 mmol/L 22-29 L [facility] Alanine aminotransferase [Enzymatic activity/volume] in Seru m or Plasma 16 U/L <41 [facility] Anion gap 3 in Serum or Plasma 11 mmol/L 8-15 [facility] Glomerular filtration rate/1.73 sq M pre dicted among non-blacks [Volume Rate/Area] in Serum or Plasma by Creatinine-based formula (MDRD) 70 mL/min/1.73m2 >60 [facility] Glomerular filtration rate/1.73 sq M pre dicted among blacks [Volume Rate/Area] in Serum or Plasma by Creatinine-based formula (MDRD) 82 mL/min/1.73m2 >60 [facility] ID Date Data Source [id number] 04/07/2021 10:10:28 AM [facility] Name Value Range Interpretation Code Description Data Irish rce(s) Supporting Document(s) Thyrotropin [Units/volume] in Serum or Plasma 2.980 u[IU]/mL 0.270-4. 200 [facility] ID Date Data Source [id number] 04/07/2021 09:29:17 AM [facility] Name Value Range Interpretation Code Description Data Irish rce(s) Supporting Document(s) Leukocytes [#/volume] in Blood by Automated count 9.7 10*3/uL 4-10 [facility] Erythrocytes [#/volume] in Blood by Automated count 3.30 10*6/uL 4.6- 6.1 L [facility] Hemoglobin [Mass/volume] in Blood 10.9 g/dL 13.5-18 L [facility] Hematocrit [Volume Fraction] of Blood by Automated count 33.8 % 4 1-53 L [facility] Erythrocyte mean corpuscular volume [Entitic volume] b y Automated count 102.6 fL 80-96 H [facility] Erythrocyte mean corpuscular hemoglobin [Entitic mass] by Automated count 33.0 pg 27-33 [facility] Erythrocyte mean corpuscular hemoglobin concentration [Mass/volume] by Automated count 32.2 [facility] width [Ratio] by Automated count 16.5 % 11.5-14.5 H [facility] Platelets [#/volume] in Blood by Automated count 237 10*3/uL 150-400 [facility] Differential cell count method - Blood [facility] Neutrophils/100 leukocytes in Blood by Automated count 71 % [facility] Lymphocytes/100 leukocytes in Blood by Automated count 13 % [facility] Monocytes/100 leukocytes in Blood by Automated count 12 % [facility] Eosinophils/100 leukocytes in Blood by Automated count 3 % [facility] Basophils/100 leukocytes in Blood by Automated count 1 % [facility] Neutrophils [#/volume] in Blood by Automated count 6.95 10*3/uL 1.8-7 .0 [facility] Lymphocytes [#/volume] in Blood by Automated count 1.24 10*3/uL 1.2-4 .0 [facility] Monocytes [#/volume] in Blood by Automated count 1.15 10*3/uL 0-0.8 H [facility] Eosinophils [#/volume] in Blood by Automated count 0.28 10*3/uL 0-0.5 [facility] Basophils [#/volume] in Blood by Automated count 0.06 10*3/uL 0-0.2 [facility] Nucleated erythrocytes/100 leukocytes [Ratio] in Blood by Automated count 0 /100{WBCs} 0-0 [facility] ID Date Data Source [id number] 03/27/2021 11:37:20 AM EDT [facility] Name Value Range Interpretation Code Description Data Irish rce(s) Supporting Document(s) Progress Note [facility] [id number]/JEVkuKOMzq9XbVKpxFBb0QVigOCHaC9WqVHF6nS2qQPJ9NNmFGtVlWjNtPLH3 lbm [file] ICAgICAgICAgICAgICAgICAgICAgICAgICAgICAgIC AgICAgICAgICAgICANCiAgICAgICAgICAgICAgICAgICAgICAgICAgICAgICAgICAgICAgICAgICAgIC AgICAgICAgICAgICAgICAgICAgICAgICAgICAgICAgICAgICAgICAgICAgICAgICAgICAgICANCiAgIC AgICAgICAgICAgICAgICAgICAgICAgICAgICAgICAg ICAgICAgICAgICAgICAgICAgICAgICAgICAgICAgICAgICAgICAgICAgICAgICAgICAgICAgICAgICAg ICAgICANCiAgICAgICAgICAgICAgICAgICAgICAgICAgICAgICAgICAgICAgICAgICAgICAgICAgICAg ICAgICAgICAgICAgICAgICAgICAgICAgICAgICAgIC AgICAgICAgICAgICAgICANCiAgICAgICAgICAgICAgICAgICAgICAgICAgICAgICAgICAgICAgICAgIC AgICAgICAgICAgICAgICAgICAgICAgICAgICAgICAgICAgICAgICAgICAgICAgICAgICAgICAgICANCi AgICAgICAgICAgICAgICAgICAgICAgICAgICAgICAg ICAgICAgICAgICAgICAgICAgICAgICAgICAgICAgICAgICAgICAgICAgICAgICAgICAgICAgICAgICAg ICAgICAgICANCiAgICAgICAgICAgICAgICAgICAgICAgICAgICAgICAgICAgICAgICAgICAgICAgICAg ICAgICAgICAgICAgICAgICAgICAgICAgICAgICAgIC AgICAgICAgICAgICAgICAgICANCiAgICAgICAgICAgICAgICAgICAgICAgICAgICAgICAgICAgICAgIC AgICAgICAgICAgICAgICAgICAgICAgICAgICAgICAgICAgICAgICAgICAgICAgICAgICAgICAgICAgIC ANCiAgICAgICAgICAgICAgICAgICAgICAgICAgICAg ICAgICAgICAgICAgICAgICAgICAgICAgICAgICAgICAgICAgICAgICAgICAgICAgICAgICAgICAgICAg ICAgICAgICAgICANCiAgICAgICAgICAgICAgICAgICAgICAgICAgICAgICAgICAgICAgICAgICAgICAg ICAgICAgICAgICAgICAgICAgICAgICAgICAgICAgIC AgICAgICAgICAgICAgICAgICAgICANCjw/uAYuN9secANaddB1P0ttXp5WVo6GMV9ud7DjRTEyOGidvc ZqPtqVJnPxFVBeWkbRDlb6EWrqHZ8OrEPjR2DpA2QvBBvyXC1AYDTlXKJtiADoDJEuUGRrRfL7VDYcLM sdIG0DfMHhFYhwKLOaOWOwOZLiBXQmTPJhPMZTQDEx EWQgKqMcVWLqWTCxKROzPFEDLJ7NWdObC1WdaO00LMNVNx5+DDydngKfLxvQAkIoIGLlo4HjOZp5LW4Y NKFpUdvcm8BwEuTpFHNMQIshZS0KHDP0CZY8PVRnSa8VUAZnG562mzJcGA0KKc3ZGgKnVF6sha1TYoLs QIExVpoGRvy1EYmxLO2LdDZlENkSps0xbiMqlhQTb2 WzfkRwaSEDoGGcsmWxRFFKuYtxazceRFFzWIWwVXKfYgPjWoKpSMNkQXd8ZNIBWYhYDtQlV6Puw6HxRn A1VLZzRfMpDOevMKWeElM8SX79sWlnTJ1EWHUuRTKkDC70KHLfUHRxZl3FGl7OZlPkMX0aoz0SArMyGD 0ysf7UWFsPOpXeV4D1wLJvP0Miql62PC6MgRU9kEPl EG3ObN9qBF1Dt3OnAEReUlYeMVGpPFSkUKXhNFPjSzZpEV1MZLZtMqBikNTcSYRpFIM6LFUpUgQ8XKHd PP8AWWXuHBK8QQ3RWY2NNqesY0NSHMrurJitHjZKYAK/ZHUAMUBQILppBVGnV99QY3XCQSsCDquvCRkC NtiaWd4zYWv+Hb3ZIL0dj3KrMQcfUDXwHJ4wly4KSX gNKyYmG9E8pVUkG2X4NMehFc8YROWcUQZyToEmDRLCGWnzXR1RIW3wjwV0OR8KcHWrWXIpKTTqfXIcSS n6L13blVLoIZkkRF3EAFZ+Zeferion+Ah5PHHGbTJDrAEFfYxZzSPWKXyKmY7EfK2XAg6NaI2OzQK42gFcibq LyODenTF5RRP6eEMQsYIZPSS5PxKLqqM0rpxVpTrZi VHLZGdItB35efOBjGWVtFOOvLFSiMo4QJFKwR5IxwdRlgKkzfrWsPNSpWSHJQC5XIPenzjQtxALhsNpd TA67hTrvBY9BMn9DKzWcIL5ncu7ExPXlXn5YQWTxGs8AGHLlFCNsSPRoMYS6MKNjHbItHHheZKCcPGOo DQG5MEVoYGMzDJ6XZdOdYBOwNtdkNvFtAGJbTBTawg 8KMZYjCSOyTHszTHScPOWfAAOtGVfaTWRmZZVzPYW1CLHrJRAvCO0JObByFOJiUNXfIKXrYYMlVKGpdk 5XUTKtDOL4VDG1FpNyUHVaUQJxSOkoMGWmJFP8CmFbFKWoQAQdCS3NZuXbPIYdDAugCwIeUMExLJSwfn 2ZRSSyWKKxRIT5XISaDQDyBITxRQvcCINxMWFmDkqv DMFzCLEnME1ALhLyURKwJTE9CdexDJHjYEBmnz2YARErGHRwSLFsDNKmISImBUKmHKhlXBZlXYQ3RoAe OPRrBQBmJH3EAiDcBWVtHAnzTLYwJTUtRQBhkj3KDKTwXLNvNUR3RDCoHNZtNOXrHRfbOODjFYZtPFe7 WBKhMPLnGJ8TGsZrBZAjIrZ2JBGxTTGcROBemw4MZO OlWBBvFjk1IHTwIEBoDXPzKPyiNLLwBMSmIJIfBQIhWZEeQZ7JJzOsZASsCcTkGfDrMOMbOLIuew6RZW MmNJNuNDR1QeCkZOJbXVVzUKdlHDEpRPQ9Zzl7OGInIPZoHF6XQbHlZDApDsN8FSQuAGUhKXLelq2HFW YnSZVzGReqDqJfBYRgNPAiUVneHVWzRCV6YzG8KTKu ZBRsMN0WCwQnYHCjYpZ1NRxbBCMbPFWgnl6SYPWyNZRzWaU7OfGoQUGbHHQgSBgiUNXkRXC5GEZbYXHa JWWjNF4FPkHnGPNcMjw9FQblNZNdDPYpkt0EGGPkOKAqDtk8GJTdRXXyJZBgVLdlOLYoGBD1DJVvSRLk HUHgHC6JRwYbZTKoHyh1MmExQKPlVVXeqf6IVGQyLL K0DLA8TgZmNVWpGGViLElxVHCqJOJeRPOvQFMqIUIkJL6BNzIwIVFyMTT1ZpdyKZTvEDWnnp2CmVBkuL umvl8TXTxQMf4TmVcaLIQ9KEtjVc9czMXpSPNmQXGPLg4NxaSmFIRfFRDYNBhnSGYqJDYfJUG1SNP0Ir TbMRWzMBBnFvT7MKLcLUHaHsZqILI7EiB0R1P7LnVx Rfl2CLB6X1X0OwZ7YOt1RFUoAUUaNkQ4Fqd+OF5eKJa+Vi9Uh7PbyvZ1bkXaDXw5COV6Xj0MZQHHW3VL Cg== ID Date Data Source [id number] 03/24/2021 09:02:28 AM EDT [facility] Name Value Range Interpretation Code Description Data Irish e(s) Supporting Document(s) Leukocytes [#/volume] in Blood by Automated count 8.9 10*3/uL 4-10 [facility] Erythrocytes [#/volume] in Blood by Automated count 3.16 10*6/uL 4.6- 6.1 L [facility] Hemoglobin [Mass/volume] in Blood 11.0 g/dL 13.5-18 L [facility] Hematocrit [Volume Fraction] of Blood by Automated count 33.5 % 4 1-53 L [facility] Erythrocyte mean corpuscular volume [Entitic volume] b y Automated count 106.0 fL 80-96 H [facility] Erythrocyte mean corpuscular hemoglobin [Entitic mass] by Automated count 34.9 pg 27-33 H [facility] Erythrocyte mean corpuscular hemoglobin concentration [Mass/volume] by Automated count 32.9 g/dL 32.0-36.[facility] width [Ratio] by Automated count 16.6 % 11.5-14.5 H [facility] Platelets [#/volume] in Blood by Automated count 278 10*3/uL 150-400 [facility] Differential cell count method - Blood [facility] Neutrophils/100 leukocytes in Blood by Automated count 73 % [facility] Lymphocytes/100 leukocytes in Blood by Automated count 11 % [facility] Monocytes/100 leukocytes in Blood by Automated count 11 % [facility] Eosinophils/100 leukocytes in Blood by Automated count 4 % [facility] Basophils/100 leukocytes in Blood by Automated count 1 % [facility] Neutrophils [#/volume] in Blood by Automated count 6.58 10*3/uL 1.8-7 .0 [facility] Lymphocytes [#/volume] in Blood by Automated count 0.96 10*3/uL 1.2-4 .0 L [facility] Monocytes [#/volume] in Blood by Automated count 1.01 10*3/uL 0-0.8 H [facility] Eosinophils [#/volume] in Blood by Automated count 0.32 10*3/uL 0-0.5 [facility] Basophils [#/volume] in Blood by Automated count 0.08 10*3/uL 0-0.2 [facility] Nucleated erythrocytes/100 leukocytes [Ratio] in Blood by Automated count 0 /100{WBCs} 0-0 [facility] ID Date Data Source [id number] 03/24/2021 09:36:58 AM T [facility] Name Value Range Interpretation Code Description Data Irish rce(s) Supporting Document(s) Albumin [Mass/volume] in Serum or Plasma by Bromocresol green (BCG) dye binding method 4.0 g/dL 3.5-5.2 [facility] al Bilirubin.total [Mass/volume] in Serum or Plasma <1.2 [facility] Calcium [Mass/volume] in Serum or Plasma 8.9 mg/dL 8.6-10.0 [facility] Chloride [Moles/volume] in Serum or Plasma 104 mmol/L 98-107 [facility] Creatinine [Mass/volume] in Serum or Plasma 1.25 mg/dL 0.70-1.20 H [facility] Glucose [Mass/volume] in Serum or Plasma 92 mg/dL 70-140 [facility] Alkaline phosphatase [Enzymatic activity/volume] in Serum or Plasma 110 U/L 40-129 [facility] Potassium [Moles/volume] in Serum or Plasma 4.4 mmol/L 3.4-5.1 [facility] Protein [Mass/volume] in Serum or Plasma 6.4 g/dL 6.4-8.3 [facility] Sodium [Moles/volume] in Serum or Plasma 137 mmol/L 136-145 [facility] Aspartate aminotransferase [Enzymatic activity/volume] in Serum or Plasma 17 U/L <40 [facility] Urea nitrogen [Mass/volume] in Serum or Plasma 24 mg/dL 6-20 H [facility] Osmolality of Serum or Plasma by calculation 288 mosm/kg 275-300 [facility] Creatinine/Urea nitrogen [Mass Ratio] in Serum or Plasma 19 [facility] Bicarbonate [Moles/volume] in Serum 25 mmol/L 22-29 [facility] Alanine aminotransferase [Enzymatic activity/volume] in Seru m or Plasma 15 U/L <41 [facility] Anion gap 3 in Serum or Plasma 9 mmol/L 8-15 [facility] Glomerular filtration rate/1.73 sq M pre dicted among non-blacks [Volume Rate/Area] in Serum or Plasma by Creatinine-based formula (MDRD) 64 mL/min/1.73m2 >60 [facility] Glomerular filtration rate/1.73 sq M pre dicted among blacks [Volume Rate/Area] in Serum or Plasma by Creatinine-based formula (MDRD) 74 mL/min/1.73m2 >60 [facility] ID Date Data Source [id number] 03/24/2021 09:36:58 AM [facility] Name Value Range Interpretation Code Description Data Irish rce(s) Supporting Document(s) Thyrotropin [Units/volume] in Serum or Plasma 1.920 u[IU]/mL 0.270-4. 200 [facility] ID Date Data Source [id number] 03/10/2021 09:17:48 AM [facility] Name Value Range Interpretation Code Description Data Irish rce(s) Supporting Document(s) Leukocytes [#/volume] in Blood by Automated count 12.0 10*3/uL 4-10 H [facility] Erythrocytes [#/volume] in Blood by Automated count 2.81 10*6/uL 4.6- 6.1 L [facility] Hemoglobin [Mass/volume] in Blood 10.4 g/dL 13.5-18 L [facility] Hematocrit [Volume Fraction] of Blood by Automated count 31.2 % 4 1-53 L [facility] Erythrocyte mean corpuscular volume [Entitic volume] b y Automated count 111.2 fL 80-96 H [facility] Erythrocyte mean corpuscular hemoglobin [Entitic mass] by Automated count 37.0 pg 27-33 H [facility] Erythrocyte mean corpuscular hemoglobin concentration [Mass/volume] by Automated count 33.3 g/dL 32.0-36.0 [facility] distribution width [Ratio] by Automated count 16.4 % 11.5-14.5 H [facility] Platelets [#/volume] in Blood by Automated count 312 10*3/uL 150-400 [facility] Differential cell count method - Blood [facility] Neutrophils/100 leukocytes in Blood by Automated count 79 % [facility] Lymphocytes/100 leukocytes in Blood by Automated count 9 % [facility] Monocytes/100 leukocytes in Blood by Automated count 9 % [facility] Eosinophils/100 leukocytes in Blood by Automated count 2 % [facility] Basophils/100 leukocytes in Blood by Automated count 1 % [facility] Neutrophils [#/volume] in Blood by Automated count 9.55 10*3/uL 1.8-7 .0 H [facility] Lymphocytes [#/volume] in Blood by Automated count 1.01 10*3/uL 1.2-4 .0 L [facility] Monocytes [#/volume] in Blood by Automated count 1.10 10*3/uL 0-0.8 H [facility] Eosinophils [#/volume] in Blood by Automated count 0.23 10*3/uL 0-0.5 [facility] Basophils [#/volume] in Blood by Automated count 0.06 10*3/uL 0-0.2 [facility] Nucleated erythrocytes/100 leukocytes [Ratio] in Blood by Automated count 0 /100{WBCs} 0-0 [facility] ID Date Data Source [id number] 03/10/2021 09:47:57 AM EDT [facility] Name Value Range Interpretation Code Description Data Irish rce(s) Supporting Document(s) Albumin [Mass/volume] in Serum or Plasma by Bromocresol green (BCG) dye binding method 4.1 g/dL 3.5-5.2 [facility] Bilirubin.total [Mass/volume] in Serum or Plasma 0.2 mg/dL <1.2 [facility] Calcium [Mass/volume] in Serum or Plasma 8.8 mg/dL 8.6-10.0 [facility] Chloride [Moles/volume] in Serum or Plasma 105 mmol/L 98-107 [facility] Creatinine [Mass/volume] in Serum or Plasma 1.07 mg/dL 0.70-1.20 [facility] Glucose [Mass/volume] in Serum or Plasma 97 mg/dL 70-140 [facility] Alkaline phosphatase [Enzymatic activity/volume] in Serum or Plasma 107 U/L 40-129 [facility] Potassium [Moles/volume] in Serum or Plasma 4.2 mmol/L 3.4-5.1 [facility] Protein [Mass/volume] in Serum or Plasma 6.3 g/dL 6.4-8.3 L [facility] Sodium [Moles/volume] in Serum or Plasma 136 mmol/L 136-145 [facility] Aspartate aminotransferase [Enzymatic activity/volume] in Serum or Plasma 14 U/L <40 [facility] Urea nitrogen [Mass/volume] in Serum or Plasma 19 mg/dL 6-20 [facility] Osmolality of Serum or Plasma by calculation 284 mosm/kg 275-300 [facility] Creatinine/Urea nitrogen [Mass Ratio] in Serum or Plasma 18 [facility] Bicarbonate [Moles/volume] in Serum 22 mmol/L 22-29 [facility] Alanine aminotransferase [Enzymatic activity/volume] in Seru m or Plasma 10 U/L <41 [facility] Anion gap 3 in Serum or Plasma 9 mmol/L 8-15 [facility] Glomerular filtration rate/1.73 sq M pre dicted among non-blacks [Volume Rate/Area] in Serum or Plasma by Creatinine-based formula (MDRD) 77 mL/min/1.73m2 >60 [facility] Glomerular filtration rate/1.73 sq M pre dicted among blacks [Volume Rate/Area] in Serum or Plasma by Creatinine-based formula (MDRD) 89 mL/min/1.73m2 >60 [facility] ID Date Data Source [id number] 03/10/2021 09:47:57 AM EDT [facility] Name Value Range Interpretation Code Description Data Irish rce(s) Supporting Document(s) Thyrotropin [Units/volume] in Serum or Plasma 2.590 u[IU]/mL 0.270-4. 200 [facility] ID Date Data Source [id number] 02/24/2021 08:49:29 AM T [facility] Name Value Range Interpretation Code Description Data Irish rce(s) Supporting Document(s) Leukocytes [#/volume] in Blood by Automated count 8.7 10*3/uL 4-10 [facility] Erythrocytes [#/volume] in Blood by Automated count 2.48 10*6/uL 4.6- 6.1 L [facility] Hemoglobin [Mass/volume] in Blood 9.6 g/dL 13.5-18 L [facility] Hematocrit [Volume Fraction] of Blood by Automated count 28.4 % 4 1-53 L [facility] Erythrocyte mean corpuscular volume [Entitic volume] b y Automated count 114.5 fL 80-96 H [facility] Erythrocyte mean corpuscular hemoglobin [Entitic mass] by Automated count 38.6 pg 27-33 H [facility] Erythrocyte mean corpuscular hemoglobin concentration [Mass/volume] by Automated count 33.8 g/dL 32.0-36.0 [facility] distribution width [Ratio] by Automated count 18.1 % 11.5-14.5 H [facility] Platelets [#/volume] in Blood by Automated count 343 10*3/uL 150-400 [facility] Differential cell count method - Blood [facility] Neutrophils/100 leukocytes in Blood by Automated count 70 % [facility] Lymphocytes/100 leukocytes in Blood by Automated count 14 % [facility] Monocytes/100 leukocytes in Blood by Automated count 12 % [facility] Eosinophils/100 leukocytes in Blood by Automated count 3 % [facility] Basophils/100 leukocytes in Blood by Automated count 1 % [facility] Neutrophils [#/volume] in Blood by Automated count 6.12 10*3/uL 1.8-7 .0 [facility] Lymphocytes [#/volume] in Blood by Automated count 1.19 10*3/uL 1.2-4 .0 L [facility] Monocytes [#/volume] in Blood by Automated count 1.02 10*3/uL 0-0.8 H [facility] Eosinophils [#/volume] in Blood by Automated count 0.30 10*3/uL 0-0.5 [facility] Basophils [#/volume] in Blood by Automated count 0.04 10*3/uL 0-0.2 [facility] Nucleated erythrocytes/100 leukocytes [Ratio] in Blood by Automated count 0 /100{WBCs} 0-0 [facility] ID Date Data Source [id number] 02/24/2021 09:41:32 AM EDT [facility] Name Value Range Interpretation Code Description Data Irish rce(s) Supporting Document(s) Albumin [Mass/volume] in Serum or Plasma by Bromocresol green (BCG) dye binding method 4.3 g/dL 3.5-5.2 [facility] Bil[facility].total [Mass/volume] in Serum or Plasma 0.3 mg/dL <1.2 [facility] Calcium [Mass/volume] in Serum or Plasma 8.6 mg/dL 8.6-10.0 [facility] Chloride [Moles/volume] in Serum or Plasma 107 mmol/L 98-107 [facility] Creatinine [Mass/volume] in Serum or Plasma 1.27 mg/dL 0.70-1.20 H [facility] Glucose [Mass/volume] in Serum or Plasma 85 mg/dL 70-140 [facility] Alkaline phosphatase [Enzymatic activity/volume] in Serum or Plasma 112 U/L 40-129 [facility] Potassium [Moles/volume] in Serum or Plasma 4.1 mmol/L 3.4-5.1 [facility] Protein [Mass/volume] in Serum or Plasma 6.7 g/dL 6.4-8.3 [facility] Sodium [Moles/volume] in Serum or Plasma 142 mmol/L 136-145 [facility] Aspartate aminotransferase [Enzymatic activity/volume] in Serum or Plasma 12 U/L <40 [facility] Urea nitrogen [Mass/volume] in Serum or Plasma 18 mg/dL 6-20 [facility] Osmolality of Serum or Plasma by calculation 295 mosm/kg 275-300 [facility] Creatinine/Urea nitrogen [Mass Ratio] in Serum or Plasma 14 [facility] Bicarbonate [Moles/volume] in Serum 25 mmol/L 22-29 [facility] Alanine aminotransferase [Enzymatic activity/volume] in Seru m or Plasma 10 U/L <41 [facility] Anion gap 3 in Serum or Plasma 10 mmol/L 8-15 [facility] Glomerular filtration rate/1.73 sq M pre dicted among non-blacks [Volume Rate/Area] in Serum or Plasma by Creatinine-based formula (MDRD) 62 mL/min/1.73m2 >60 [facility] Glomerular filtration rate/1.73 sq M pre dicted among blacks [Volume Rate/Area] in Serum or Plasma by Creatinine-based formula (MDRD) 72 mL/min/1.73m2 >60 [facility] ID Date Data Source [id number] 02/17/2021 07:24:15 PM EDT [facility] Name Value Range Interpretation Code Description Data Irish rce(s) Supporting Document(s) Progress Note [facility] [id number]/YRIquIEIdn0PtCPuvDPw9WHpjPKWpI0CnZRX5rN8xUUM6KGwHGjWtGhEtXAJ7 lbm PpOzfQMsAdUERdXijTDiRsOCmbJbqpuNVfHC9LzYZ6ZZVwA31bEEJiCIRzU4UnYPT0DdT+Ez3ODHCtsA VeIT0NAvsO5U8kgpg5Af5dkE+BQNAiCWxpl/nKJbJmAYdMvkSYANoyFkA3fEKgIxja7oY3Vtt3U/mp3V asQti4iTIGxAFjRKeLXCbhqUqhCNQCUh/8V+2ZwHEc Vfx7+6eJtTq/Un/8g1o38/Rts/KlaTI2ZBrGH8wW0y5312ZXMw/V/obRiaoDubo84SxIis+mtw0rKzqg JfkxFXppEclpaB2ocVM3/dblf0wGq1mtWob895kwNv7B140ua7eL1vih010Dl1TXG7Kax3mUpbrLBDpk d4SIxrchPMJ3EVWD536i86Zr8EG5uFykcn6i88V+6N Zz3FUGHymcG+1bEzFyvBj8Pprag0ZPllaJzmC+buwoaz7xJhrTS3r7Ia2fm7Pz+qWuyjZ3Bfm4lSrnX9 u+OwHfDL1LDXFiwAqiHRbnXjlIMErN2MpxqXxZ3PIWZ3wi1Oj+n5IfJf4Hs/ZH6Nqxcq/dA9MsdY+WXR 0aR5lSgI5B/ZSD5as90vbG0rMgerjckt84867G916A [file] WfokGlkfKPQ8QAYyAPUuCFXqEL8eXDVSNi3+WSiotILyxCppBYTIXpL6WbKvAHmpRGOOCh9N ID Date Data Source [id number] 02/17/2021 07:24:10 PM EDT [facility] Name Value Range Interpretation Code Description Data Irish rce(s) Supporting Document(s) Progress Note [facility] [id number]/[id number]JnV6LfVKA9qA8rNAT8VEsJMoCfEeZoKTJ5 lbm [file] ZNwgISTyBY5dCACAQd1+WHeqjUEqyEmySVFTUaMrHXX6WLrpSPWPFb5W ID Date Data Source [id number] 01/25/2021 11:50:00 AM EDT [facility] ([facility]) Name Value Range Interpretation Code Description Data Irish rce(s) Supporting Document(s) Glucose [Mass/volume] in Serum or Plasma 89 mg/dL 74-99 [facility] ([facility]) 100-125 mg/dL PRE-DIABETES/FASTING >126 mg/dL DIABETES/FASTING Urea nitrogen [Mass/volume] in Serum or Plasma 28 mg/dL 7-18 [facility] ([facility]) Creatinine 1.4 mg/dL 0.6-1.3 [facility] ([facility]) Sodium [Moles/volume] in Serum or Plasma 141 meq/L 136-145 [facility] ([facility]) Potassium [Moles/volume] in Serum or Plasma 4.8 meq/L 3.5-5.1 [facility] ([facility]) Chloride [Moles/volume] in Serum or Plasma 107 meq/L 98-107 [facility] ([facility]) Carbon dioxide, total [Moles/volume] in Serum or Plasma 27 meq/L 21 -32 [facility] ([facility]) Calcium [Mass/volume] in Serum or Plasma 8.9 mg/dL 8.5-10.1 [facility] Total Bilirubin 0.5 mg/dL 0.2-1.0 [facility] [facility] Alkaline phosphatase isoenzyme [Units/volume] in Serum or Pl asma 92 mg/dL 46-116 [facility] ([facility]) Aspartate aminotransferase [Enzymatic activity/volume] in Serum or Plasma 25 U/L 15-37 [facility] ([facility] ) Alanine aminotransferase [Enzymatic activity/volume] in Seru m or Plasma 41 U/L 12-78 [facility] ([facility]) Albumin [Mass/volume] in Serum or Plasma 3.7 g/dL 3.4-5.0 [facility] ([facility]) Glomerular filtration rate/1.73 sq M pre dicted among non-blacks [Volume Rate/Area] in Serum or Plasma by Creatinine-based formula (MDRD) 53 mL/min [facility] ([facility]) A/G Ratio 1.19 CALC 1.00-1.90 [facility] Proteinase 3 Ab [Units/volume] in Serum 6.8 g/dL 6.4-8.2 [facility] Glomerular filtration rate/1.73 sq M pre dicted among blacks [Volume Rate/Area] in Serum or Plasma by Creatinine-based formula (MDRD) Laboratory test result [facility] ([facility]) <content>CHRONIC KIDNEY DISEASE STAGING PER NKF</content>
<content></content>
<content>STAGE I & II GFR >= 60 NORMAL TO MILDLY DECREASED</content>
<content>STAGE III GFR 30-59 MODERATELY DECREASED</content>
<content>STAGE IV GFR 15-29 SEVERELY DECREASED</content>
<content>STAGE V GFR <15 VERY LITTLE GFR LEFT</content>
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
<content></content> ID Date Data Source [id number] 01/25/2021 11:50:00 AM EDT [facility] ([facility] Name Value Range Interpretation Code Description Data Irish rce(s) Supporting Document(s) Glucose mean value [Mass/volume] in Blood Estimated fr om glycated hemoglobin 120 mg/dL 60-110 [facility] ([facility] ) Hemoglobin A1c/Hemoglobin.total in Blood 5.8 % [facility] ([facility]) Lab Result Notes: Pre-Diabetes 5.7 - 6.4 % Diabetes = or > 6.5% ID Date Data Source [id number] 01/25/2021 11:50:00 AM EDT [facility] ([facility] Name Value Range Interpretation Code Description Data Irish rce(s) Supporting Document(s) Cholesterol [Mass/volume] in Serum or Plasma 171 mg/dL 131-200 [facility] ([facility]) Triglyceride [Mass/volume] in Serum or Plasma 58 mg/dL 30-150 [facility] Cholesterol in HDL [Mass/volume] in Serum or Plasma 58 mg/dL 35-60 [facility] ([facility]) Cholesterol in LDL [Mass/volume] in Serum or Plasma by calcu tejal 101 CALC 50-159 [facility] ([facility]) ID Date Data Source [id number] 01/23/2021 08:14:36 AM EDT [facility] Name Value Range Interpretation Code Description Data Irish rce(s) Supporting Document(s) Progress Note [facility] CJKLWd1wXmGWYfCq93/YEKzzUBIhk8LlYUfcEKf2SMhdPIXlO6QkJVV9oF6mMXB2UBfQWzBwJoVoIKOq lb [file] AgICAgICAgICAgICAgICAgICAgICAgICAgICAgICAgICAgICAgICAgICAgICAgICAgICAgICAgICAgIC AgICAgICAgICAgICAgICAgICAgICAgICAgICAgICAg ICAgICAgICANCiAgICAgICAgICAgICAgICAgICAgICAgICAgICAgICAgICAgICAgICAgICAgICAgICAg ICAgICAgICAgICAgICAgICAgICAgICAgICAgICAgICAgICAgICAgICAgICAgICAgICANCiAgICAgICAg ICAgICAgICAgICAgICAgICAgICAgICAgICAgICAgIC AgICAgICAgICAgICAgICAgICAgICAgICAgICAgICAgICAgICAgICAgICAgICAgICAgICAgICAgICAgIC ANCiAgICAgICAgICAgICAgICAgICAgICAgICAgICAgICAgICAgICAgICAgICAgICAgICAgICAgICAgIC AgICAgICAgICAgICAgICAgICAgICAgICAgICAgICAg ICAgICAgICAgICANCiAgICAgICAgICAgICAgICAgICAgICAgICAgICAgICAgICAgICAgICAgICAgICAg ICAgICAgICAgICAgICAgICAgICAgICAgICAgICAgICAgICAgICAgICAgICAgICAgICAgICANCiAgICAg ICAgICAgICAgICAgICAgICAgICAgICAgICAgICAgIC AgICAgICAgICAgICAgICAgICAgICAgICAgICAgICAgICAgICAgICAgICAgICAgICAgICAgICAgICAgIC AgICANCiAgICAgICAgICAgICAgICAgICAgICAgICAgICAgICAgICAgICAgICAgICAgICAgICAgICAgIC AgICAgICAgICAgICAgICAgICAgICAgICAgICAgICAg ICAgICAgICAgICAgICANCiAgICAgICAgICAgICAgICAgICAgICAgICAgICAgICAgICAgICAgICAgICAg ICAgICAgICAgICAgICAgICAgICAgICAgICAgICAgICAgICAgICAgICAgICAgICAgICAgICAgICANCiAg ICAgICAgICAgICAgICAgICAgICAgICAgICAgICAgIC AgICAgICAgICAgICAgICAgICAgICAgICAgICAgICAgICAgICAgICAgICAgICAgICAgICAgICAgICAgIC AgICAgICANCiAgICAgICAgICAgICAgICAgICAgICAgICAgICAgICAgICAgICAgICAgICAgICAgICAgIC AgICAgICAgICAgICAgICAgICAgICAgICAgICAgICAg ICAgICAgICAgICAgICAgICANCjw/gBOgW9zkfCOqeoB8W6feSe7VBf6GCK1yq5PoPDVzHInnyjQcJelV YmGfAHZqSblZKck7ICwlFP6UsRQuK1TsU2DpVQhmLU9XSXIlWNYlbUQoEUOrRVUnGbJ9RFIsDJtoGW8L aWRzIFsgNSAwIFIgNyAwIFIgOSAwIFIgMTEgMCBSID VoPEPqXcMcSCYiTZPyNX4KVPUlH843otLgYc3QOw2CEmJiXO9odx1BXmBmIBMzAipWEso3TWzdEZ8MpC OewCArPoVdXHJRJpAtV5qie2UoUiFiDEXQCZqmBS4Tf3WvdGVjOVk+Zc6IDL9xo1QnHFizMaWgKW0jzf 7COMuUNcBxK4FjnAjiNLBmd7scLJQfID2gdPBlUKZ6 QCjxpFYnRQCyS4Ukc7wtNJRNNBLviRG4GyLjJkAjCjMbLLi2UiWtOU3cQNomYR9ZUSP1OHleJSEmVLXm L5jPYvDlRRUsFXCscQbaMS2VRrIoR1ReuhVssVWzQBBdOMJAPu2+XYnndsZnSsiOWaS5WCBxv6FyYPi7 NT1OULTcMDvrEM6CPMPlxW6kXZkrCO1BLbVjAbAmVO JMZvUmZ51uhFYxHDp1U4MqEzYvHNEjPuqvRICiXMraTmIjOJKqHsPoFQjnAL7+ID4+LZiqNO2ZEYqkls SfOOCpUj7QFIFzMIPwNW8rDUHvXVSeW9N5sRfhLAENMeKlJ0veayhoCB0wUWKjL234fUljogMzPCH8IH RpDq6NNWVfMXV3CQNtcJCcXbXzLMDNJZqpOG2XaPFt ILT8yG3oCXxxNVZfEKGdX1yCVuWhqHbvNQ88bLvthyCiaLJtCXj+En1KPM9vi9LxZZx7hpEiQHkoHSY1 VXlkXGEbBNOiYTMxFXB4SNR2HKNORmOdIEUkPBFcTZaiJHPpALTyld2XOTCsHQNzMDmtOmDlOYHnKYOo MWxlCPQqSIZtOqZuNTUkHXDjYG8VUkOdZEDpOULbVT deMKOlVNVsgs9VCIByHCOyJYX7RfIsWPXjZAIdQOenWCObDIY2Lbr2ZNVzRUZcNE6NYfPnZSVqICgfNX UvUDJcQAWsnh3FHFThUUWvAXO2YVXhAUOvGZCpIBsxJHCcPZOwBFQ5SDSmWQFkVJ5JCsZtPZPvXWQ8Mx bkZGWlYDKqqd9CDLXgHMUkWHJhYVXpURHrQAXeKIoi OOVrLGG2AeWhIDNlPZAsBQ4HOkAgOYLmLPt8UUKdVDCaKAHnhh1NKRZiCHJdHkwgQLQkMRAkKATnMVfs ABNyUINfRXT1GLMsGGJgAE5NMgGyNQNlFuMoCbVmGOEuTJLqvp9DUPQdEQDsXfB2OJTvPQXoCKTyIXnm SISgGJRyWvqaJICcGANtES9JYqXzYSXlHkG2BnWzNR QaNGCbzq5LHKLmOMPrIoOkVYNxRVVtENGyQLwsAPCxPQMlUjH5MPNxERYtTR9RMuDoMYBoZyF2XyPwGH BcODHiyp9SQBWrKZIgCLN6KSFcFYUsROPcAMsfMHGmGPR6Evx7HNFcCXVgWU8CZjUvKMUpZtQ3UZhuVN EaNIZopn7CLYDvFAIlHtToGYOzNLWeAXAlQWcsBSYp WSU0Mxq4XNPwJGXxXV5XLkOiZELdAphhNgklPORiTIFlli8AQLYqQLMrJhUtFrAbZCPvCFPgBKhoMTIo ZYR1HKr6ZKEwANSoNA1LJoWnBYOeEee7MgojZVCjESOwfh9BOGJpMZYtJTcqPZSkABGpADWcACyaZGMu EFE8VRxbFGYuQNOyKN5XVeVbYKBbJhzaDmYqDISmSW Kwai9UYBKmNLP2VSz2ZLMrWXCfUSKtBShvQQIpJSCmSKZ3QAFmSWEwRY0EBnEtKLBhRDSsDVIrRNQhVB Gook1HfSKkoIcijr4ICPxEZq9ElEqbMPV6KTyqSm2bfEEmFiDqZEIIBp4BnaQrNXRzDSPDBRvfQTRpBK T0WTCsWNY7AHnaI1PmVcqlXVB7WCJ1B4N6SzU0YGGt UtS8IbKtMER0UqEsYHIwSADiNAGfAnivKykkPhT1XzWmTYG+JI6yOTy+Px6Wc4UmhpC8shImDZm3DLS3 EU9UBIWLK3GSZc== ID Date Data Source [id number] 01/20/2021 09:17:55 AM EDT [facility] Name Value Range Interpretation Code Description Data Irish rce(s) Supporting Document(s) Leukocytes [#/volume] in Blood by Automated count 6.3 10*3/uL 4-10 [facility] Erythrocytes [#/volume] in Blood by Automated count 2.08 10*6/uL 4.6- 6.1 L [facility] Hemoglobin [Mass/volume] in Blood 8.0 g/dL 13.5-18 L [facility] Hematocrit [Volume Fraction] of Blood by Automated count 23.3 % 4 1-53 L [facility] Erythrocyte mean corpuscular volume [Entitic volume] b y Automated count 112.1 fL 80-96 H [facility] Erythrocyte mean corpuscular hemoglobin [Entitic mass] by Automated count 38.7 pg 27-33 H [facility] Erythrocyte mean corpuscular hemoglobin concentration [Mass/volume] by Automated count 34.5 g/dL [facility].0-[facility] width [Ratio] by Automated count 20.8 % 11.5-14.5 H [facility] Platelets [#/volume] in Blood by Automated count 174 10*3/uL 150-400 [facility] Differential cell count method - Blood [facility] Neutrophils/100 leukocytes in Blood by Automated count 61 % [facility] Lymphocytes/100 leukocytes in Blood by Automated count 17 % [facility] Monocytes/100 leukocytes in Blood by Automated count 20 % [facility] Eosinophils/100 leukocytes in Blood by Automated count 2 % [facility] Basophils/100 leukocytes in Blood by Automated count 0 % [facility] Neutrophils [#/volume] in Blood by Automated count 3.89 10*3/uL 1.8-7 .0 [facility] Lymphocytes [#/volume] in Blood by Automated count 1.07 10*3/uL 1.2-4 .0 L [facility] Monocytes [#/volume] in Blood by Automated count 1.24 10*3/uL 0-0.8 H [facility] Eosinophils [#/volume] in Blood by Automated count 0.11 10*3/uL 0-0.5 [facility] Basophils [#/volume] in Blood by Automated count 0.03 10*3/uL 0-0.2 [facility] Nucleated erythrocytes/100 leukocytes [Ratio] in Blood by Automated count 0 /100{WBCs} 0-0 [facility] ID Date Data Source [id number] 01/20/2021 09:48:06 AM T [facility] Name Value Range Interpretation Code Description Data Irish rce(s) Supporting Document(s) Albumin [Mass/volume] in Serum or Plasma by Bromocresol green (BCG) dye binding method 4.0 g/dL 3.5-5.2 [facility] Bilirubin.total [Mass/volume] in Serum or Plasma 0.2 mg/dL <1.2 [facility] Calcium [Mass/volume] in Serum or Plasma 8.9 mg/dL 8.6-10.0 [facility] Chloride [Moles/volume] in Serum or Plasma 104 mmol/L 98-107 [facility] Creatinine [Mass/volume] in Serum or Plasma 1.29 mg/dL 0.70-1.20 H [facility] Glucose [Mass/volume] in Serum or Plasma 91 mg/dL 70-140 [facility] Alkaline phosphatase [Enzymatic activity/volume] in Serum or Plasma 98 U/L 40-129 [facility] Potassium [Moles/volume] in Serum or Plasma 4.4 mmol/L 3.4-5.1 [facility] Protein [Mass/volume] in Serum or Plasma 6.5 g/dL 6.4-8.3 [facility] Sodium [Moles/volume] in Serum or Plasma 138 mmol/L 136-145 [facility] Aspartate aminotransferase [Enzymatic activity/volume] in Serum or Plasma 14 U/L <40 [facility] Urea nitrogen [Mass/volume] in Serum or Plasma 18 mg/dL 6-20 [facility] Osmolality of Serum or Plasma by calculation 287 mosm/kg 275-300 [facility] Creatinine/Urea nitrogen [Mass Ratio] in Serum or Plasma 14 [facility] Bicarbonate [Moles/volume] in Serum 22 mmol/L 22-29 [facility] Alanine aminotransferase [Enzymatic activity/volume] in Seru m or Plasma 12 U/L <41 [facility] Anion gap 3 in Serum or Plasma 11 mmol/L 8-15 [facility] Glomerular filtration rate/1.73 sq M pre dicted among non-blacks [Volume Rate/Area] in Serum or Plasma by Creatinine-based formula (MDRD) 61 mL/min/1.73m2 >60 [facility] Glomerular filtration rate/1.73 sq M pre dicted among blacks [Volume Rate/Area] in Serum or Plasma by Creatinine-based formula (MDRD) 71 mL/min/1.73m2 >60 [facility] ID Date Data Source [id number] 01/07/2021 06:46:37 AM [facility] Name Value Range Interpretation Code Description Data Irish rce(s) Supporting Document(s) ABO and Rh group [Type] in Blood [facility] Blood group antibody screen [Presence] in Serum or Plasma [facility] Performed at [facility], [place] [employer] AT [facility] Blood bank comment [facility] ID Date Data Source [id number] 01/06/2021 09:19:55 AM [facility] Name Value Range Interpretation Code Description Data Irish rce(s) Supporting Document(s) Leukocytes [#/volume] in Blood by Automated count 6.4 10*3/uL 4-10 [facility] Erythrocytes [#/volume] in Blood by Automated count 2.23 10*6/uL 4.6- 6.1 L [facility] Hemoglobin [Mass/volume] in Blood 8.5 g/dL 13.5-18 L [facility] Hematocrit [Volume Fraction] of Blood by Automated count 24.7 % 4 1-53 L [facility] Erythrocyte mean corpuscular volume [Entitic volume] b y Automated count 110.3 fL 80-96 H [facility] Erythrocyte mean corpuscular hemoglobin [Entitic mass] by Automated count 38.1 pg 27-33 H [facility] Erythrocyte mean corpuscular hemoglobin concentration [Mass/volume] by Automated count 34.5 g/dL 32.0-36.0 [facility] Erythrocyte distribution width [Ratio] by Automated count 19.1 % 11.5-14.5 H [facility] Platelets [#/volume] in Blood by Automated count 156 10*3/uL 150-400 [facility] Differential cell count method - Blood [facility] Neutrophils/100 leukocytes in Blood by Automated count 61 % [facility] Lymphocytes/100 leukocytes in Blood by Automated count 18 % [facility] Monocytes/100 leukocytes in Blood by Automated count 19 % [facility] Eosinophils/100 leukocytes in Blood by Automated count 2 % [facility] Basophils/100 leukocytes in Blood by Automated count 0 % [facility] Neutrophils [#/volume] in Blood by Automated count 3.83 10*3/uL 1.8-7 .0 [facility] Lymphocytes [#/volume] in Blood by Automated count 1.18 10*3/uL 1.2-4 .0 L [facility] Monocytes [#/volume] in Blood by Automated count 1.24 10*3/uL 0-0.8 H [facility] Eosinophils [#/volume] in Blood by Automated count 0.15 10*3/uL 0-0.5 [facility] Basophils [#/volume] in Blood by Automated count 0.03 10*3/uL 0-0.2 [facility] Nucleated erythrocytes/100 leukocytes [Ratio] in Blood by Automated count 0 /100{WBCs} 0-0 [facility] ID Date Data Source [id number] 01/06/2021 10:01:34 AM EDT [facility] Name Value Range Interpretation Code Description Data Irish rce(s) Supporting Document(s) Albumin [Mass/volume] in Serum or Plasma by Bromocresol green (BCG) dye binding method 4.1 g/dL 3.5-5.2 [facility] Bilirubin.total [Mass/volume] in Serum or Plasma 0.2 mg/dL <1.2 [facility] Calcium [Mass/volume] in Serum or Plasma 9.2 mg/dL 8.6-10.0 [facility] Chloride [Moles/volume] in Serum or Plasma 107 mmol/L 98-107 [facility] Creatinine [Mass/volume] in Serum or Plasma 1.39 mg/dL 0.70-1.20 H [facility] Glucose [Mass/volume] in Serum or Plasma 93 mg/dL 70-140 [facility] Alkaline phosphatase [Enzymatic activity/volume] in Serum or Plasma 97 U/L 40-129 [facility] Potassium [Moles/volume] in Serum or Plasma 4.0 mmol/L 3.4-5.1 [facility] Protein [Mass/volume] in Serum or Plasma 6.3 g/dL 6.4-8.3 L [facility] Sodium [Moles/volume] in Serum or Plasma 141 mmol/L 136-145 [facility] Aspartate aminotransferase [Enzymatic activity/volume] in Serum or Plasma 15 U/L <40 [facility] Urea nitrogen [Mass/volume] in Serum or Plasma 18 mg/dL 6-20 [facility] Osmolality of Serum or Plasma by calculation 294 mosm/kg 275-300 [facility] Creatinine/Urea nitrogen [Mass Ratio] in Serum or Plasma 13 [facility] Bicarbonate [Moles/volume] in Serum 22 mmol/L 22-29 [facility] Alanine aminotransferase [Enzymatic activity/volume] in Seru m or Plasma 15 U/L <41 [facility] Anion gap 3 in Serum or Plasma 12 mmol/L 8-15 [facility] Glomerular filtration rate/1.73 sq M pre dicted among non-blacks [Volume Rate/Area] in Serum or Plasma by Creatinine-based formula (MDRD) 56 mL/min/1.73m2 >60 L [facility] Glomerular filtration rate/1.73 sq M pre dicted among blacks [Volume Rate/Area] in Serum or Plasma by Creatinine-based formula (MDRD) 65 mL/min/1.73m2 >60 [facility] ID Date Data Source [id number] 12/29/2020 03:23:40 PM EDT [facility] Name Value Range Interpretation Code Description Data Irish rce(s) Supporting Document(s) Progress Note [facility] XSQFPl1lUkNTWfUc11/FCQoyVFVqb7ShWQigKZa1VOvhLHRlI8TaUPU1kQ1hEYC1QZfAGwQlDgHiZfY6 kern [facility] RrAzcXCbPvDACiHtsIHzScUQkgCvzjuGAhRF4VgKJ2TQNoT82jVLJqQGWaH7CpHFG1BWn+Ff2XBTStwG YqYA9NDwdR9O08j6xJVh//jQsCYdftNFlC6svWPXp89+Xak3yBNvoC/LThjBWLS6qIkegp1b9drZsT8w ijdtasCnJmHHBKVc96VxgosqYyqNu/m2gj8ZnQvCs/ WF8IG1nfLaNl/3U05RdaeryzX+tEXnCsyAqLF/RX177+wpO+8r7iQH1a6j/no6KSJP7cp35F8MtBhdSK ZGxnXsrieSXhlzG56dDs+yPlRpYf++7Hhw9V/1f1vK/hbWFjJ8MnU5S5LunxByc1gJsw4vO4lXFywIWi VMj6vxKkx7VMkc0jr63K1vnMer3m4QHCjtOAMk4lEp zHhA3uw3jDWPuHahVoL902Le5IlyBBOf1C6VSEOsayFNfuV/GciofUSDWjuDB2W1fzIbx6P4aZora0Wg kTZjMWNuKo7orckEaijgIFMuOfxdKc3Xxe81F+WpcEm/c2PRwTbSKUukZV8U0lb2jbUKf6P+RDHyZjQ4 d267I0QRu7yEm59bc0fDQCw9CW8+B2Mz9OD50SzpO2 [file] ICAgICAgICAgICAgICAgICAgICAgICAgICAgICAgIC AgICAgICAgICAgICAgICAgICANCiAgICAgICAgICAgICAgICAgICAgICAgICAgICAgICAgICAgICAgIC AgICAgICAgICAgICAgICAgICAgICAgICAgICAgICAgICAgICAgICAgICAgICAgICAgICAgICAgICAgIC ANCiAgICAgICAgICAgICAgICAgICAgICAgICAgICAg ICAgICAgICAgICAgICAgICAgICAgICAgICAgICAgICAgICAgICAgICAgICAgICAgICAgICAgICAgICAg ICAgICAgICAgICANCiAgICAgICAgICAgICAgICAgICAgICAgICAgICAgICAgICAgICAgICAgICAgICAg ICAgICAgICAgICAgICAgICAgICAgICAgICAgICAgIC AgICAgICAgICAgICAgICAgICAgICANCiAgICAgICAgICAgICAgICAgICAgICAgICAgICAgICAgICAgIC AgICAgICAgICAgICAgICAgICAgICAgICAgICAgICAgICAgICAgICAgICAgICAgICAgICAgICAgICAgIC AgICANCiAgICAgICAgICAgICAgICAgICAgICAgICAg ICAgICAgICAgICAgICAgICAgICAgICAgICAgICAgICAgICAgICAgICAgICAgICAgICAgICAgICAgICAg ICAgICAgICAgICAgICANCiAgICAgICAgICAgICAgICAgICAgICAgICAgICAgICAgICAgICAgICAgICAg ICAgICAgICAgICAgICAgICAgICAgICAgICAgICAgIC AgICAgICAgICAgICAgICAgICAgICAgICANCiAgICAgICAgICAgICAgICAgICAgICAgICAgICAgICAgIC AgICAgICAgICAgICAgICAgICAgICAgICAgICAgICAgICAgICAgICAgICAgICAgICAgICAgICAgICAgIC AgICAgICANCiAgICAgICAgICAgICAgICAgICAgICAg ICAgICAgICAgICAgICAgICAgICAgICAgICAgICAgICAgICAgICAgICAgICAgICAgICAgICAgICAgICAg ICAgICAgICAgICAgICAgICANCiAgICAgICAgICAgICAgICAgICAgICAgICAgICAgICAgICAgICAgICAg ICAgICAgICAgICAgICAgICAgICAgICAgICAgICAgIC AgICAgICAgICAgICAgICAgICAgICAgICAgICANCjw/fWUoD0puzBXsdjI2A6xbLe6FZk5BNJ7fd7PlFS NrBYgsbiBmXzlETwEsIJUiHwcFCiz2RNdwIB9YbTKrA6AlS0QrYKhtUJ9GDWCsNBWgoWRnFPDwEVVuXu G3UXWwHGlqER6NdXDpIXarYVQiBNOpJpMkOEVcWQXk KIXuPMQwBZNYTJHpSFHdZlTrMCNxQDUdIDwsMZOCBU6WFySqG2SjzP99UEoPLh4+DQplbmRvYmoNCjM3 KFUzt0HrWRf9VE5CQFQvUbmak1RtKobxTPANMLgzYS5ZSDO1IDB8GBQuAh4YLXPaH392rjNxUN1WZs4H XnIxIJ5pdi3HAjciQOWtZnaJQqj2PYniFK3XtGIzDY pPlb9thwIzdbBPj4ZtadXbmMHGZOKxCUWXEQZngjByIOknRdHuTBQxMs6nDd7eFQJeNIG3AiSgUUVEHV 7UZPGdAKYikRXpKFGgRSSSRR7DZBjgXVA4XKQvtnWjxSAwOGayKI0ERKLvntRyVxrkQJSPQWc+Pg0KZW 3if5MbHGfoWNTpJY9ygp3ANYrKMtSwA3J2bAOnG1U7 TOphRs8AQZYvHOJkOrZvVSAGKDpbBJ3NIF5ytcB0FZ3IuCVbXUYjKHZyuNDiXPw1N46zmDSeYJoyKC7S ICA+Zeferino+Dp6APWGrGUBrKKDwDmChLKIYAtJoJ7CzL9BIt3EiJ8ToVC82uOjvghHgITyoUB2JCR8mIHNc LBLPXV1YsNFozU6ujoSyUbUeEMJBGzAxX95rmUWpRS FkXVP0RTYzUt7DUMAsB9MasyNspQkqudUxYOLlBVAULN6WZHhhkpForKRxeCrcBO54oLfeBE6GDh0KYw EwQT2wdn6LcJXpIk8JFUF8DU7RGRBvUKSmLBQgVZL1PGUnDrKcLEuvSMAxBLJxAPX7VAMoDAYeHA6SCq LkEWMgQDP9PPqoIKJnIYImep4JZRJaMYU6FmP5USOt VHOjCOCwSBbfFOUbHFSfEPB9PQKnVEBvRY0BSsMxYASzSBOxUULiKRBrWGUiah9BFVDzFZItLYB5DPVg ARTgHJXlJGteRHTqYYM1SJKsNSNwYPUzDL1HQjYnKGReZCknHkXoLLLqWIFjfx8DVWGcKHVgQYa3ETDx UZWzRWMgQIxpEQGgDIOqQRd8LDFiMUYbNL6SCoXkVL NqEUD1OErcZFFhEDBipt4ZEEZwKWZsIAixCXDnPVBzPYQwLNubXJAwIZP6XIB6UDYhDFYaIH6ZKaXgSB PxTAplAuBiSBCsEFZzpb5OUVKoYORuKfGsLtGyRMPaWRLgEVkeIWAxXBRuWZAzZTPaUFBwEJ6KJfUaOX JyKyT0SEVzUFMfYGVkjq3SJCWeHIPqPdwwSKJeNTGs RQOnGIhmTKIvXGJ0TdqmGSIaXDQkMI4RWfPkWWBlDwJ3OhfyVHBqZGGsku1OWNTkHFOmTFL1LDTdYQSd XZOxMAwzYJMmIOA8JJKzJAPbVCHjTN8RCmUxFUIlTmOmQlYhHMLeUUMwij3OYYPyPWDiOzZmCWSlMLSb JJUsMYqlXHFwMKW0RYWkZXZdSMVgCA9WQjHwLOZqQv xqJwAaHQDnFJGaut5HBJCjHJUhTUV6NYQuKFRtKPBhRMymXPYpXDJ7OjL8NGTwLXDvPC6SEpSwRWWvBj m0YoVcLUNlVDCsra6KXTGmRCJqCSzkLUPrIXBuSRFzSDkxTWNrCDSjLWFpSZFhZWCbLN5IQkKdVEWlBE JtCRQtEKEoIRPnvd0WBAGqDCB3YTIsYOMrHDLtKWKu ULlhBEOaUXVuDuT6TUPqFYGlFW7SUiIyAWHjEPU5JpGmPSAwRYWisk3FIPErZDD0FGygXPXlJJRzSBNr RKlfGRRsLFGfGhz5BSRzQAGvBD0EQgLcNIDsOPS6XOtcJZXySKJckc0BQYPyUDE8BaGoZgEvJSOyYFRu WVn6usJbfEKzZMw0YJ5SQ0HrmtHcWCYVGg3Xy644DJ Z1APHhGo8VM7jgKa1dBJOxNUNHPx2ZFNc5BLDoIWZmR7P8GDH8UIZePHO9VvZhXLAtWsn2OEMdDOU+ID izGAT0LpMkBFilXIHdBvS3Dtd6LRKvEEAsEeFgGsLmYB6iNECLEw9+DQpzdGFydHhyZWYNCjQzODUxDQ drFZPQWq7C ID Date Data Source [id number] 12/23/2020 08:38:58 AM EDT [facility] Name Value Range Interpretation Code Description Data Irish rce(s) Supporting Document(s) Leukocytes [#/volume] in Blood by Automated count 7.4 10*3/uL 4-10 [facility] Erythrocytes [#/volume] in Blood by Automated count 2.53 10*6/uL 4.6- 6.1 L [facility] Hemoglobin [Mass/volume] in Blood 9.6 g/dL 13.5-18 L [facility] Hematocrit [Volume Fraction] of Blood by Automated count 27.6 % 4 1-53 L [facility] Erythrocyte mean corpuscular volume [Entitic volume] b y Automated count 109.1 fL 80-96 H [facility] Erythrocyte mean corpuscular hemoglobin [Entitic mass] by Automated count 37.9 pg 27-33 H [facility] Erythrocyte mean corpuscular hemoglobin concentration [Mass/volume] by [facility] 34.8 g/[facility] width [Ratio] by Automated count 19.1 % 11.5-14.5 H [facility] Platelets [#/volume] in Blood by Automated count 146 10*3/uL 150-400 L [facility] Differential cell count method - Blood [facility] Neutrophils/100 leukocytes in Blood by Automated count 65 % [facility] Lymphocytes/100 leukocytes in Blood by Automated count 15 % [facility] Monocytes/100 leukocytes in Blood by Automated count 18 % [facility] Eosinophils/100 leukocytes in Blood by Automated count 2 % [facility] Basophils/100 leukocytes in Blood by Automated count 0 % [facility] Neutrophils [#/volume] in Blood by Automated count 4.80 10*3/uL 1.8-7 .0 [facility] Lymphocytes [#/volume] in Blood by Automated count 1.07 10*3/uL 1.2-4 .0 L [facility] Monocytes [#/volume] in Blood by Automated count 1.29 10*3/uL 0-0.8 H [facility] Eosinophils [#/volume] in Blood by Automated count 0.16 10*3/uL 0-0.5 [facility] Basophils [#/volume] in Blood by Automated count 0.03 10*3/uL 0-0.2 [facility] Nucleated erythrocytes/100 leukocytes [Ratio] in Blood by Automated count 0 /100{WBCs} 0-0 [facility] ID Date Data Source [id number] 12/23/2020 09:11:04 AM EDT [facility] Name Value Range Interpretation Code Description Data Irish rce(s) Supporting Document(s) Albumin [Mass/volume] in Serum or Plasma by Bromocresol green (BCG) dye binding method 4.0 g/dL 3.5-5.[facility] Bilirubin.total [Mass/volume] in Serum or Plasma 0.3 mg/dL <1.2 [facility] Calcium [Mass/volume] in Serum or Plasma 9.4 mg/dL 8.6-10.0 [facility] Chloride [Moles/volume] in Serum or Plasma 105 mmol/L 98-107 [facility] Creatinine [Mass/volume] in Serum or Plasma 1.31 mg/dL 0.70-1.20 H [facility] Glucose [Mass/volume] in Serum or Plasma 82 mg/dL 70-140 [facility] Alkaline phosphatase [Enzymatic activity/volume] in Serum or Plasma 101 U/L 40-129 [facility] Potassium [Moles/volume] in Serum or Plasma 4.3 mmol/L 3.4-5.1 [facility] Protein [Mass/volume] in Serum or Plasma 6.7 g/dL 6.4-8.3 [facility] Sodium [Moles/volume] in Serum or Plasma 136 mmol/L 136-145 [facility] Aspartate aminotransferase [Enzymatic activity/volume] in Serum or Plasma 16 U/L <40 [facility] Urea nitrogen [Mass/volume] in Serum or Plasma 19 mg/dL 6-20 [facility] Osmolality of Serum or Plasma by calculation 284 mosm/kg 275-300 [facility] Creatinine/Urea nitrogen [Mass Ratio] in Serum or Plasma 15 [facility] Bicarbonate [Moles/volume] in Serum 23 mmol/L 22-29 [facility] Alanine aminotransferase [Enzymatic activity/volume] in Seru m or Plasma 17 U/L <41 [facility] Anion gap 3 in Serum or Plasma 9 mmol/L 8-15 [facility] Glomerular filtration rate/1.73 sq M pre dicted among non-blacks [Volume Rate/Area] in Serum or Plasma by Creatinine-based formula (MDRD) 60 mL/min/1.73m2 >60 L [facility] Glomerular filtration rate/1.73 sq M pre dicted among blacks [Volume Rate/Area] in Serum or Plasma by Creatinine-based formula (MDRD) 70 mL/min/1.73m2 >60 [facility] ID Date Data Source [id number] 12/19/2020 12:32:10 AM EDT [facility] Name Value Range Interpretation Code Description Data Irish rce(s) Supporting Document(s) Progress Note [facility] CJOBTf9uHkGYAsWs27/PPRpdDKWnz0LxNMjcWSg0FKobDEKbU2RxZPP3eS5pIBN5OSaIApJjMoRvKeA0 lbm MrLjrDInKkKUShYhxAUiAfOKoxJjmpxTAmRX6OcRX2NAPoC01gEJIyNVWgP6NiKHJ7Mkf+Hq7LQQKduO UuBP0DHffG6H3pqux5Ic7vll5CjTGkRDG7nXGc5iMsxKE2pdRvssq6yRmdTiflPDJhGACR7nD/Weber/t8V [file] XeI6HSZxYwQ2CmDgCFR6EPklCX5hWQCXZu5+RCepaHYzcRupNKFXThW3GTWpIKsyNOZIDj2C ID Date Data Source [id number] 12/19/2020 12:32:05 AM EDT [facility] Name Value Range Interpretation Code Description Data Irish rce(s) Supporting Document(s) Progress Note [facility] CZOESs6fPjWKHjDp84/VNUnwKSBdu4UmPSobOUa8GUcjWNLdJ7ZbNBX5fL5wSZX7PHmJZnFuXiWqGdK4 lbm [file] NmNWJkZjM+VG7sRTs+Tf2Bd8KjnzV6ynHcTLv0RlXdXJ3HUOQDH2BKUx== ID Date Data Source [id number] [facility] Value Range Interpretation Code Description Data Irish rce(s) Supporting Document(s) Progress Note [facility] UCGPMd8uWpKVAmHd83/JETtsSLSwc5SxENhxCKp9AIkrIKTwG5AyNHO5uM5cWZK8IBgXIrHbFdLtLjWb lbm [file] AMGNIi5R ID Date Data Source [id number] 12/11/2020 10:58:13 PM EDT [facility] Name Value Range Interpretation Code Description Data Irish rce(s) Supporting Document(s) Progress Note [facility] ZTJJPr0rEcLEQfIx74/VDDgnZYRdh1QvMIbiUSm3NBtwGQZtQ8JaTEX3wE0kHAU9ECmRMuFbJnWrQpGo lbm [file] AgICAgICAgICAgICAgICAgICAgICAgICAgICAgICAgICAgICAgICAgICAgICAgICAgICAgICAgICAgIC AgICAgICAgICAgICAgICAgICAgICAgDQogICAgICAgICAgICAgICAgICAgICAgICAgICAgICAgICAgIC AgICAgICAgICAgICAgICAgICAgICAgICAgICAgICAg ICAgICAgICAgICAgICAgICAgICAgICAgICAgICAgICAgDQogICAgICAgICAgICAgICAgICAgICAgICAg ICAgICAgICAgICAgICAgICAgICAgICAgICAgICAgICAgICAgICAgICAgICAgICAgICAgICAgICAgICAg ICAgICAgICAgICAgICAgDQogICAgICAgICAgICAgIC AgICAgICAgICAgICAgICAgICAgICAgICAgICAgICAgICAgICAgICAgICAgICAgICAgICAgICAgICAgIC AgICAgICAgICAgICAgICAgICAgICAgICAgDQogICAgICAgICAgICAgICAgICAgICAgICAgICAgICAgIC AgICAgICAgICAgICAgICAgICAgICAgICAgICAgICAg ICAgICAgICAgICAgICAgICAgICAgICAgICAgICAgICAgICAgDQogICAgICAgICAgICAgICAgICAgICAg ICAgICAgICAgICAgICAgICAgICAgICAgICAgICAgICAgICAgICAgICAgICAgICAgICAgICAgICAgICAg ICAgICAgICAgICAgICAgICAgDQogICAgICAgICAgIC AgICAgICAgICAgICAgICAgICAgICAgICAgICAgICAgICAgICAgICAgICAgICAgICAgICAgICAgICAgIC AgICAgICAgICAgICAgICAgICAgICAgICAgICAgDQogICAgICAgICAgICAgICAgICAgICAgICAgICAgIC AgICAgICAgICAgICAgICAgICAgICAgICAgICAgICAg ICAgICAgICAgICAgICAgICAgICAgICAgICAgICAgICAgICAgICAgDQogICAgICAgICAgICAgICAgICAg ICAgICAgICAgICAgICAgICAgICAgICAgICAgICAgICAgICAgICAgICAgICAgICAgICAgICAgICAgICAg ICAgICAgICAgICAgICAgICAgICAgDQogICAgICAgIC AgICAgICAgICAgICAgICAgICAgICAgICAgICAgICAgICAgICAgICAgICAgICAgICAgICAgICAgICAgIC IxXWCpBJZhDEGwSYPoEIQkDVYjFQOxXLOlSJUzHNJrZSt0A3mxJFPbGSOzJL3hCWr3Fo6+DQoNCmVuZH X1mwVzcG0CSH5jb5NeUVxyHCSjb4BmCIy0KM7OKOMg WXehZC5NSSfyla3XWQCuJGCgzCIPx0psFuFnFTG7BIXeNbguGX1WXAYdG1cdhoGzSJIfQQACESomVFQI HQpdHQVSSIAeXLMzXmJxLmWuVFWiXVNrCUQCSMK4EFTxBfZmZBgiKP0Mq8DmcEY3AHu+Ch4ESE3qu8Rx ZEfpTFNrVX4xmv2UIEbWAeAiB2FlfjT3GCP5OBAvIi 8OIOWkXZTnmGJlJEAjHRJQIzHcE9XkaE05FDTJAk9+YIzxokRuPzgWDpE4YSSdt5VuUHp7OH8RPJAfWO s1gZTjENOpD7Ebm1BzDx53HITiLkggXXR0wuOyAjGIVJ6xt6YrKB5MXSA5LIUsRY9qWLOyFAM9UgX5UQ FVCS0VPOGoBODnjQUxMEYuOSSPMB1EJCjdAQJ7GKBa kvTsvZVxSWfsJH1DEOAaybLkAkWrCXCLKDg+Id0STJ7zv5OoMVkzGvYtIH9eds3LRXlXTwKmV3U1wSBy U1D2ODcqJm6YXYYiDNMvEeMmNWSQZRzpAJ2EZN8rojK5OH2TeLXkZHXgPJCznMQuGWq9N36ojDIyGQtt PH1ZCNR+Zeferino+Hs4UMCMsJBOfNRSnBjJnPDNNYgKxA9 PiO8ZBu1SdC1DtVD87nGjwdhDwQZaxLI9ZOX8mHMEoUFMFCL6NaTTdjM7bqeBbPXOzPZFUDwKyU30onT OsPBZoWOGaTXJgMn1DMIUvW9UitoKukTzunjZrXJGqLLJVXH1IMKkcytOjhEBocPuaYK35kGeiTG3QHf 6TMjEjUZ3bmi1MpAVqTq0RAQIsQe3QWLVjPSMoJSBi MMZ2SEWePtZgFFfvTQOfGWJoMRK7GZOkFPAhIS6HKsLxIEHnTSI7VzNwTVImDTDxef2QRGUrTWO0Uxrv BoTuZSHoJNKnQSrjZZVuGKFdQLN0KFXzDZVeDM4CVmEmKDJfPXXwYVdyQFRwZNInwf2BAYQjFELvRWNn MiPhCFZbSORpUGvaEDKuLYH6FDAcZDGyMDZnOV9TJp VvYDGqTDsbNzMfEXGqIPMzkd6KOCAjZDFwLGuwFBQzUCOzFYImUXycHRBlMBQwOHJ8RPKvFZKlNA5ZEg QwECHaQYG0ZLDtTTBnDOWzql2BUJQdDJUlWBD3FLGlFOHjFYCbCUjaOYMwLWF8AhK8FNWdRQMaIK7SNy LjNRTdHXm8BOHwGGLaXLYqzq4ZSSElYCGuBwB9LsYk ZAUqHWWaQLngELErXDYaIanbFSZgNAKiOX6CWpRbLBMyTzLdJPLfROUnOYNnhz3JTAFqTVFmSRH8CRLv GKGjDQFzEZxeYOZaPKQ8SNFiYSLhYBHaQL6WKkCpZOXcGyR8QVcsKOKnAOQbqh9DFJFbYTCvDYilRISd YSJtVCFoEOiiWYYzQVL4DFifFPKoEIXrXI5JPiBiNN IfMrjeKANjDGBlWUReyi9IGRXrTCRmGoA1GGWkUFNhQIRwPNsmAPGcRDX1MnYpATGoYHRdNV6NQmQcIJ MlOgumBqLfLEFrWRCvxq6OKTKqQVZrOLC3GEYvTULzKGKnDQmiXFTzUBC2AFm1WJUqKLUmTN2KNcVeCK MqLif4ZBVoUGZcDYFctf5LJTQlETJ7QQD3LWLjXBUg ACHrJPheJKMgEIEkEgcnOTVmNCTkPD3WCbVjNFUtFVY8LKUuOSRmDQOcjb1LACKcFJP2FMN7WzPdAFDx HBWjSJqtHSWdYAQnOCL7JKTiLANiWT4WTyIvIASvXPQ8DMHqODCmHYErfb5GVTHkOSR6XtT2BNXaFWEr BRAmGUh6mbOtaODcOOb4RT7JK4ZfmiRkNgyTVb6Lz1 09NNG8WYGmHt8BD3yiUd4ySQMwSNQKFa1YIWf0DvSzYrUfT6XtCqsuJ0P0KYX5XLzgDyT7RQLtW5A2Wg Q+MYmxZNDvRBC4HoWnCUC5WWe2IXr0ZsDlEDunA8T6UbYnLO1fRGDROp7+DQpzdGFydHhyZWYNCjQzMz I0PFtgSNELFl6T ID Date Data Source [id number] 12/10/2020 10:39:05 PM EDT [facility] Name Value Range Interpretation Code Description Data Irish rce(s) Supporting Document(s) Progress Note [facility] HEUHQa7lZkSUDkWi71/QLCgbAGMth7KbMPhtJZs9FCiiFSKoU0TlYXQ2hU7hHGY0QTpBLdVzIxShUmWf lbm [file] FnJV1LZm1DBxD9ZAU6lZZaKu7OQeWuEUAUNbEoCB8LPEg= ID Date Data Source [id number] 12/10/2020 10:39:00 PM EDT [facility] Name Value Range Interpretation Code Description Data Irish rce(s) Supporting Document(s) Progress Note [facility] MBXLCm1rHeYIRxLm74/MQKftAJJqf7MuQOiiPIa5JHeqQWHaR8YlDVB6iZ8oDXT1JFnHToAgZxRjFpXn lbm [file] ICAgICAgICAgICAgICAgICAgICAgICAgICAgICAgICAgICAgICAgICAgICAgICAgICAgICAgICAgICAg ICAgICAgICAgICAgICAgICAgICAgICAgDQogICAgIC AgICAgICAgICAgICAgICAgICAgICAgICAgICAgICAgICAgICAgICAgICAgICAgICAgICAgICAgICAgIC AgICAgICAgICAgICAgICAgICAgICAgICAgICAgICAgICAgDQogICAgICAgICAgICAgICAgICAgICAgIC AgICAgICAgICAgICAgICAgICAgICAgICAgICAgICAg ICAgICAgICAgICAgICAgICAgICAgICAgICAgICAgICAgICAgICAgICAgICAgDQogICAgICAgICAgICAg ICAgICAgICAgICAgICAgICAgICAgICAgICAgICAgICAgICAgICAgICAgICAgICAgICAgICAgICAgICAg ICAgICAgICAgICAgICAgICAgICAgICAgICAgDQogIC AgICAgICAgICAgICAgICAgICAgICAgICAgICAgICAgICAgICAgICAgICAgICAgICAgICAgICAgICAgIC AgICAgICAgICAgICAgICAgICAgICAgICAgICAgICAgICAgICAgDQogICAgICAgICAgICAgICAgICAgIC AgICAgICAgICAgICAgICAgICAgICAgICAgICAgICAg ICAgICAgICAgICAgICAgICAgICAgICAgICAgICAgICAgICAgICAgICAgICAgICAgDQogICAgICAgICAg ICAgICAgICAgICAgICAgICAgICAgICAgICAgICAgICAgICAgICAgICAgICAgICAgICAgICAgICAgICAg ICAgICAgICAgICAgICAgICAgICAgICAgICAgICAgDQ ogICAgICAgICAgICAgICAgICAgICAgICAgICAgICAgICAgICAgICAgICAgICAgICAgICAgICAgICAgIC AgICAgICAgICAgICAgICAgICAgICAgICAgICAgICAgICAgICAgICAgDQogICAgICAgICAgICAgICAgIC AgICAgICAgICAgICAgICAgICAgICAgICAgICAgICAg ICAgICAgICAgICAgICAgICAgICAgICAgICAgICAgICAgICAgICAgICAgICAgICAgICAgDQogICAgICAg ICAgICAgICAgICAgICAgICAgICAgICAgICAgICAgICAgICAgICAgICAgICAgICAgICAgICAgICAgICAg ICAgICAgICAgICAgICAgICAgICAgICAgICAgICAgIC MnSOd0N4klOBQhUURmND2iYNb1Jx3+EBjHXxTyERK1ogDbwV7DLJ1eu3NoVYuxEGRwr2WeRBp6NA8FNN CzAEblPN1TAAnfzx8TGDXnISFdxFLMg6ufQzMlMSW5UCBuNkqnXG5FSELuU8wgntIuHIGvEPSDYSxgYZ BSIDkgMCBSIDExIDAgUiAxMyAwIFIgMTUgMCBSIDE3 SSOlHrFhPYpcCX5Uq7ZatVB0DDn+Hm6HUK5ji6SvHOueZDSqVJ3vge4GTJuQBgBhZ5PhcwM5TTO7ZUPt Fc6TNHTaNFEqeKZxPBBdGLLHIeNcA2DxoL24JKFWYu3+BGwdhqVwBbiPJkT5VABbr1UmNZi7ZW1WJXGu OZj8iFRbQYYvG0Fha9QwNw24CVCcUrcxOpFyNE0jBJ 4xlO28xDxdTLJjXFZcQr57PwXdWrVmVMl5WYArYJ2uYCbpTR0UUWP4WFwlSMTlBJAsU6bZLiKxLFKrVC DvfBeiOH4LVlJrO5ObomOpwUVsRGWvTGPBGv2+BZnxsdGnAbfHMdB1PJJpj1IfCAq4UP1JOALyXOgmDM 3JWCAdfY2wNSekTM8WRtSlTeNnFQDPVwQkR61uqCMe MMp9J3UgFsVeSPOsVnhvBHLeHXpmKhHiAIIyKjOjDCdkYX5+ID4+TUncSR6HKRtufjDaXGWaCb8WIAUh GQNeKH1tUTEwJCJyN2N7rEopBNUNEnVmM6bbntxtDK1uUMPvU617jGrirnCdXDJ7ZERrJd6ERELxNLT2 JMIpsCSfKdGdBGOPTSceYZ7ByOPwUYL8yW2rCRbrTK UhPTEeV1eTAwDurSolFG97fRixrcKcvGMgTWg+Hk3IEY6ei6OiMIt6ieLpFYiaIUD0WWkrPAMcLPMkMW DdHNY8DCW2ZWTQAfKbLNEbSEBsHHodELJuZWUyvi7KLWRnWZS9IUr8XdTpEDBgWLVcGJcpWIDiACFfKz D8AHLtIYJbCK2UGfPiQIDmZYLrOPwkZLDzHZZbhe6R SWCvAYVnHBAdCBPyRTTeDMBeEPrmWJLeGHR8ReY6WYFiIJEcEZ7YCcQbDEAnXYxyFwTwRSJbFBItom9R QSNcCUJyDAW4YTQzVSXdAVRbRGxgBAWePFCuLpliJUTeUIHsJL1GDjKoWUMbOSD9ITNyKTYlJLMrxm8F CYBmBOQcKKQ2RqZeWKAnBAAuDVoqXTGkFKV3TKP8TF HdVAJdTJ2NRnEaDBGxEFkrTEsiGWCmSQShjq8UCSFlOZHwGQNkDmLkMVFaNZOkLNgjUUVcICUlBCM2IZ CfVEWlCS3GTsNnDWFsBzV6HgDdIDNaMZSimz8LASVrTEYlIIF2MKPbDONtYGJdEEqzEUAkDMJ3GCUfAH XkMVCvSF2JHnXcUEPpQjJ3KnMrWEPcUKKapa2ZOOCt ESFcDRS6ZYCqUSElYOIgCCnqPWZqTKW6AMAuZTFrNXKwOX7DVbXoPIGbGvG7BMDvJVRyPMDzwg1QIBUb STVnDsHfXpCtNXRaDYPhEDkzBBOwRYU5YZngRMWqGBRuTD1QZdKdZYZiUwa9VzIrMDIrLPOyxe9WCPTk USRdIPm7GIZvPNBsCXElCImpVXAsQLS3RJZ8CQIdXE KaMT3XMiQlAJWxHbz8OEDnBYPfCKPdeg9BHDCkXXAaQDB9NKHwICJkEQLgXKglUPLlRNVfDFu6GZJrRV UdEU9BEzWiHYHoQHO4AFKvWITgXGVzme2FTLXmNZY6SLc7YPEyNGDpVLUzLLqgMNVqDWEtUev4PLCaJX ZdJX4RPdPhMGIkHPP2FIDoCXXwCGRmyh6KQAAkFKT4 HhinQvPoFWGoMYWzYVfqKYFxJTZrMDtnDJPhJBWmOI7MZvTbHCeyAJNNHrd2JPoeF9f9LCYvAw4AL0Dv u4FsEcLfMUUXRSnfYY8tliFrOUXcHb3SR4bAQdewZSBfMkv8Cot1OWGkQHY6GEP4Tbt8ZCTfBuI4HfXt DP6jOJV1EQLvQtm8XWx7TaVaBIRgFWq3FeieYmKwBh jiVOEpRdEpQV7NQk0ZUtZ4VZZ2oXToGx1ZFWRhEBdJCcCnKJ0JWSu= ID Date Data Source [id number] 2020 08:30:20 AM EDT [facility] Name Value Range Interpretation Code Description Data Irish e(s) Supporting Document(s) Leukocytes [#/volume] in Blood by Automated count 5.1 10*3/uL 4-10 [facility] Erythrocytes [#/volume] in Blood by Automated count 2.69 10*6/uL 4.6- 6.1 L [facility] Hemoglobin [Mass/volume] in Blood 10.0 g/dL 13.5-18 L [facility] Hematocrit [Volume Fraction] of Blood by Automated count 28.8 % 4 1-53 L [facility] Erythrocyte mean corpuscular volume [Entitic volume] b y Automated count 107.1 fL 80-96 H [facility] Erythrocyte mean corpuscular hemoglobin [Entitic mass] by Automated count 37.2 pg 27-33 H [facility] Erythrocyte mean corpuscular hemoglobin concentration [Mass/volume] by Automated count 34.7 g[facility].0-[facility] width [Ratio] by Automated count 20.0 % 11.5-14.5 [facility] Platelets [#/volume] in Blood by Automated count 301 10*3/uL 150-400 [facility] Differential cell count method - Blood [facility] Neutrophils/100 leukocytes in Blood by Automated count 58 % [facility] Lymphocytes/100 leukocytes in Blood by Automated count 18 % [facility] Monocytes/100 leukocytes in Blood by Automated count 21 % [facility] Eosinophils/100 leukocytes in Blood by Automated count 2 % [facility] Basophils/100 leukocytes in Blood by Automated count 1 % [facility] Neutrophils [#/volume] in Blood by Automated count 2.98 10*3/uL 1.8-7 .0 [facility] Lymphocytes [#/volume] in Blood by Automated count 0.91 10*3/uL 1.2-4 .0 L [facility] Monocytes [#/volume] in Blood by Automated count 1.10 10*3/uL 0-0.8 H [facility] Eosinophils [#/volume] in Blood by Automated count 0.11 10*3/uL 0-0.5 [facility] Basophils [#/volume] in Blood by Automated count 0.03 10*3/uL 0-0.2 [facility] Nucleated erythrocytes/100 leukocytes [Ratio] in Blood by Automated count 0 /100{WBCs} 0-0 [facility] ID Date Data Source [id number] 2020 09:02:24 AM EDT [facility] Name Value Range Interpretation Code Description Data Irish rce(s) Supporting Document(s) Albumin [Mass/volume] in Serum or Plasma by Bromocresol green (BCG) dye binding method 3.9 g/dL 3.5-5.2 [facility] Bil[facility].total [Mass/volume] in Serum or Plasma 0.2 mg/dL <1.2 [facility] Calcium [Mass/volume] in Serum or Plasma 9.0 mg/dL 8.6-10.0 [facility] Chloride [Moles/volume] in Serum or Plasma 103 mmol/L 98-107 [facility] Creatinine [Mass/volume] in Serum or Plasma 1.30 mg/dL 0.70-1.20 H [facility] Glucose [Mass/volume] in Serum or Plasma 98 mg/dL 70-140 [facility] Alkaline phosphatase [Enzymatic activity/volume] in Serum or Plasma 109 U/L 40-129 [facility] Potassium [Moles/volume] in Serum or Plasma 4.3 mmol/L 3.4-5.1 [facility] Protein [Mass/volume] in Serum or Plasma 6.5 g/dL 6.4-8.3 [facility] Sodium [Moles/volume] in Serum or Plasma 138 mmol/L 136-145 [facility] Aspartate aminotransferase [Enzymatic activity/volume] in Serum or Plasma 16 U/L <40 [facility] Urea nitrogen [Mass/volume] in Serum or Plasma 25 mg/dL 6-20 H [facility] Osmolality of Serum or Plasma by calculation 291 mosm/kg 275-300 [facility] Creatinine/Urea nitrogen [Mass Ratio] in Serum or Plasma 19 [facility] Bicarbonate [Moles/volume] in Serum 25 mmol/L 22-29 [facility] Alanine aminotransferase [Enzymatic activity/volume] in Seru m or Plasma 13 U/L <41 [facility] Anion gap 3 in Serum or Plasma 10 mmol/L 8-15 [facility] Glomerular filtration rate/1.73 sq M pre dicted among non-blacks [Volume Rate/Area] in Serum or Plasma by Creatinine-based formula (MDRD) 61 mL/min/1.73m2 >60 [facility] Glomerular filtration rate/1.73 sq M pre dicted among blacks [Volume Rate/Area] in Serum or Plasma by Creatinine-based formula (MDRD) 70 mL/min/1.73m2 >60 [facility] ID Date Data Source [id number] 11/23/2020 08:43:20 AM EDT [facility] Name Value Range Interpretation Code Description Data Irish rce(s) Supporting Document(s) Leukocytes [#/volume] in Blood by Automated count 5.7 10*3/uL 4-10 [facility] Erythrocytes [#/volume] in Blood by Automated count 2.88 10*6/uL 4.6- 6.1 L [facility] Hemoglobin [Mass/volume] in Blood 10.4 g/dL 13.5-18 L [facility] Hematocrit [Volume Fraction] of Blood by Automated count 30.2 % 4 1-53 L [facility] Erythrocyte mean corpuscular volume [Entitic volume] b y Automated count 104.6 fL 80-96 H [facility] Erythrocyte mean corpuscular hemoglobin [Entitic mass] by Automated count 36.1 pg 27-33 H [facility] Erythrocyte mean corpuscular hemoglobin concentration [Mass/volume] by Automated count 34.5 g/dL 32.0-36.[facility] width [Ratio] by Automated count 19.7 % 11.5-14.5 H [facility] Platelets [#/volume] in Blood by Automated count 152 10*3/uL 150-400 [facility] Differential cell count method - Blood [facility] Neutrophils/100 leukocytes in Blood by Automated count 64 % [facility] Lymphocytes/100 leukocytes in Blood by Automated count 18 % [facility] Monocytes/100 leukocytes in Blood by Automated count 15 % [facility] Eosinophils/100 leukocytes in Blood by Automated count 2 % [facility] Basophils/100 leukocytes in Blood by Automated count 1 % [facility] Neutrophils [#/volume] in Blood by Automated count 3.63 10*3/uL 1.8-7 .0 [facility] Lymphocytes [#/volume] in Blood by Automated count 1.04 10*3/uL 1.2-4 .0 L [facility] Monocytes [#/volume] in Blood by Automated count 0.86 10*3/uL 0-0.8 H [facility] Eosinophils [#/volume] in Blood by Automated count 0.09 10*3/uL 0-0.5 [facility] Basophils [#/volume] in Blood by Automated count 0.04 10*3/uL 0-0.2 [facility] Nucleated erythrocytes/100 leukocytes [Ratio] in Blood by Automated count 0 /100{WBCs} 0-0 [facility] ID Date Data Source [id number] 11/23/2020 09:28:18 AM EDT [facility] Name Value Range Interpretation Code Description Data Irish rce(s) Supporting Document(s) Albumin [Mass/volume] in Serum or Plasma by Bromocresol green (BCG) dye binding method 3.7 g/dL 3.5-5.2 [facility] Bilirubin.total [Mass/volume] in Serum or Plasma <1.2 [facility] Calcium [Mass/volume] in Serum or Plasma 8.5 mg/dL 8.6-10.0 L [facility] Chloride [Moles/volume] in Serum or Plasma 106 mmol/L 98-107 [facility] Creatinine [Mass/volume] in Serum or Plasma 1.21 mg/dL 0.70-1.20 H [facility] Glucose [Mass/volume] in Serum or Plasma 131 mg/dL 70-140 [facility] Alkaline phosphatase [Enzymatic activity/volume] in Serum or Plasma 108 U/L 40-129 [facility] Potassium [Moles/volume] in Serum or Plasma 4.0 mmol/L 3.4-5.1 [facility] Protein [Mass/volume] in Serum or Plasma 6.3 g/dL 6.4-8.3 L [facility] Sodium [Moles/volume] in Serum or Plasma 136 mmol/L 136-145 [facility] Aspartate aminotransferase [Enzymatic activity/volume] in Serum or Plasma 17 U/L <40 [facility] Urea nitrogen [Mass/volume] in Serum or Plasma 19 mg/dL 6-20 [facility] Osmolality of Serum or Plasma by calculation 286 mosm/kg 275-300 [facility] Creatinine/Urea nitrogen [Mass Ratio] in Serum or Plasma 15 [facility] Bicarbonate [Moles/volume] in Serum 23 mmol/L 22-29 [facility] Alanine aminotransferase [Enzymatic activity/volume] in Seru m or Plasma 25 U/L <41 [facility] Anion gap 3 in Serum or Plasma 8 mmol/L 8-15 [facility] Glomerular filtration rate/1.73 sq M pre dicted among non-blacks [Volume Rate/Area] in Serum or Plasma by Creatinine-based formula (MDRD) 67 mL/min/1.73m2 >60 [facility] Glomerular filtration rate/1.73 sq M pre dicted among blacks [Volume Rate/Area] in Serum or Plasma by Creatinine-based formula (MDRD) 77 mL/min/1.73m2 >60 [facility] ID Date Data Source [id number] 11/09/2020 08:37:53 AM EDT [facility] Name Value Range Interpretation Code Description Data Irish rce(s) Supporting Document(s) Leukocytes [#/volume] in Blood by Automated count 7.5 10*3/uL 4-10 [facility] Erythrocytes [#/volume] in Blood by Automated count 3.23 10*6/uL 4.6- 6.1 [facility] Hemoglobin [Mass/volume] in Blood 11.3 g/dL 13.5-18 L [facility] Hematocrit [Volume Fraction] of Blood by Automated count 33.5 % 4 1-53 [facility] Erythrocyte mean corpuscular volume [Entitic volume] b y Automated count 104.0 fL 80-96 H [facility] Erythrocyte mean corpuscular hemoglobin [Entitic mass] by Automated count 35.1 pg 27-33 H [facility] Erythrocyte mean corpuscular hemoglobin concentration [Mass/volume] by Automated count 33.8 g/dL 32.0-36.[facility] width [Ratio] by Automated count 20.9 % 11.5-14.5 H [facility] Platelets [#/volume] in Blood by Automated count 232 10*3/uL 150-400 [facility] Differential cell count method - Blood [facility] Neutrophils/100 leukocytes in Blood by Automated count 69 % [facility] Lymphocytes/100 leukocytes in Blood by Automated count 12 % [facility] Monocytes/100 leukocytes in Blood by Automated count 15 % [facility] Eosinophils/100 leukocytes in Blood by Automated count 3 % [facility] Basophils/100 leukocytes in Blood by Automated count 1 % [facility] Neutrophils [#/volume] in Blood by Automated count 5.21 10*3/uL 1.8-7 .0 [facility] Lymphocytes [#/volume] in Blood by Automated count 0.91 10*3/uL 1.2-4 .0 L [facility] Monocytes [#/volume] in Blood by Automated count 1.16 10*3/uL 0-0.8 H [facility] Eosinophils [#/volume] in Blood by Automated count 0.22 10*3/uL 0-0.5 [facility] Basophils [#/volume] in Blood by Automated count 0.04 10*3/uL 0-0.2 [facility] Nucleated erythrocytes/100 leukocytes [Ratio] in Blood by Automated count 0 /100{WBCs} 0-0 [facility] ID Date Data Source [id number] 11/09/2020 09:12:53 AM EDT [facility] Name Value Range Interpretation Code Description Data Irish rce(s) Supporting Document(s) Albumin [Mass/volume] in Serum or Plasma by Bromocresol green (BCG) dye binding method 3.7 g/dL 3.5-5.2 [facility] al Bilirubin.total [Mass/volume] in Serum or Plasma 0.2 mg/dL <1.2 [facility] Calcium [Mass/volume] in Serum or Plasma 8.7 mg/dL 8.6-10.0 [facility] Chloride [Moles/volume] in Serum or Plasma 104 mmol/L 98-107 [facility] Creatinine [Mass/volume] in Serum or Plasma 1.16 mg/dL 0.70-1.20 [facility] Glucose [Mass/volume] in Serum or Plasma 93 mg/dL 70-140 [facility] Alkaline phosphatase [Enzymatic activity/volume] in Serum or Plasma 120 U/L 40-129 [facility] Potassium [Moles/volume] in Serum or Plasma 4.0 mmol/L 3.4-5.1 [facility] Protein [Mass/volume] in Serum or Plasma 6.3 g/dL 6.4-8.3 L [facility] Sodium [Moles/volume] in Serum or Plasma 136 mmol/L 136-145 [facility] Aspartate aminotransferase [Enzymatic activity/volume] in Serum or Plasma 14 U/L <40 [facility] Urea nitrogen [Mass/volume] in Serum or Plasma 19 mg/dL 6-20 [facility] Osmolality of Serum or Plasma by calculation 285 mosm/kg 275-300 [facility] Creatinine/Urea nitrogen [Mass Ratio] in Serum or Plasma 16 [facility] Bicarbonate [Moles/volume] in Serum 22 mmol/L 22-29 [facility] Alanine aminotransferase [Enzymatic activity/volume] in Seru m or Plasma 13 U/L <41 [facility] Anion gap 3 in Serum or Plasma 10 mmol/L 8-15 [facility] Glomerular filtration rate/1.73 sq M pre dicted among non-blacks [Volume Rate/Area] in Serum or Plasma by Creatinine-based formula (MDRD) 70 mL/min/1.73m2 >60 [facility] Glomerular filtration rate/1.73 sq M pre dicted among blacks [Volume Rate/Area] in Serum or Plasma by Creatinine-based formula (MDRD) 81 mL/min/1.73m2 >60 [facility] ID Date Data Source [id number] 10/26/2020 03:37:16 PM EDT [facility] Name Value Range Interpretation Code Description Data Irish rce(s) Supporting Document(s) Progress Note [facility] KRMHYp0eFtFKOvRf35/CRWatBDXrc7UxDFvjEKd1BUauHSBcZ6GrZXL7jV8eDDJ8QRuAWtOnSnXjFLY7 lbm [file] [id number]== ID Date Data Source [id number] 10/26/2020 03:37:11 PM EDT [facility] Name Value Range Interpretation Code Description Data Irish rce(s) Supporting Document(s) Progress Note [facility] WXDPZw5oNcFDVrZj77/ZMIzpILDtj2FvQPywYWo6QZraNHRjP0JoAYQ1iF4aNRM7YQpLWnYpDfWaYOG6 lbm [file] ID Date Data Source [id number] 10/26/2020 08:44:00 AM EDT [facility] Name Value Range Interpretation Code Description Data Irish rce(s) Supporting Document(s) Leukocytes [#/volume] in Blood by Automated count 7.8 10*3/uL 4-10 [facility] Erythrocytes [#/volume] in Blood by Automated count 3.75 10*6/uL 4.6- 6.1 L [facility] Hemoglobin [Mass/volume] in Blood 12.4 g/dL 13.5-18 L [facility] Hematocrit [Volume Fraction] of Blood by Automated count 38.0 % 4 1-53 L [facility] Erythrocyte mean corpuscular volume [Entitic volume] b y Automated count 101.4 fL 80-96 H [facility] Erythrocyte mean corpuscular hemoglobin [Entitic mass] by Automated count 33.0 pg 27-33 [facility] Erythrocyte mean corpuscular hemoglobin concentration [Mass/volume] by Automated count 32.6 g/dL [facility].0-[facility] distribution width [Ratio] by Automated count 21.2 % 11.5-14.5 H [facility] Platelets [#/volume] in Blood by Automated count 219 10*3/uL 150-400 [facility] Differential cell count method - Blood [facility] Neutrophils/100 leukocytes in Blood by Automated count 66 % [facility] Lymphocytes/100 leukocytes in Blood by Automated count 13 % [facility] Monocytes/100 leukocytes in Blood by Automated count 13 % [facility] Eosinophils/100 leukocytes in Blood by Automated count 7 % [facility] Basophils/100 leukocytes in Blood by Automated count 1 % [facility] Neutrophils [#/volume] in Blood by Automated count 5.23 10*3/uL 1.8-7 .0 [facility] Lymphocytes [#/volume] in Blood by Automated count 1.00 10*3/uL 1.2-4 .0 L [facility] Monocytes [#/volume] in Blood by Automated count 1.01 10*3/uL 0-0.8 H [facility] Eosinophils [#/volume] in Blood by Automated count 0.53 10*3/uL 0-0.5 H [facility] Basophils [#/volume] in Blood by Automated count 0.07 10*3/uL 0-0.2 [facility] Nucleated erythrocytes/100 leukocytes [Ratio] in Blood by Automated count 0 /100{WBCs} 0-0 [facility] ID Date Data Source [id number] 10/26/2020 09:09:42 AM EDT [facility] Name Value Range Interpretation Code Description Data Irish rce(s) Supporting Document(s) Albumin [Mass/volume] in Serum or Plasma by Bromocresol green (BCG) dye binding method 3.6 g/dL 3.5-5.2 [facility] Bilirubin.total [Mass/volume] in Serum or Plasma 0.2 mg/dL <1.2 [facility] Calcium [Mass/volume] in Serum or Plasma 8.6 mg/dL 8.6-10.0 [facility] Chloride [Moles/volume] in Serum or Plasma 103 mmol/L 98-107 [facility] Creatinine [Mass/volume] in Serum or Plasma 1.29 mg/dL 0.70-1.20 H [facility] Glucose [Mass/volume] in Serum or Plasma 100 mg/dL 70-140 [facility] Alkaline phosphatase [Enzymatic activity/volume] in Serum or Plasma 119 U/L 40-129 [facility] Potassium [Moles/volume] in Serum or Plasma 3.9 mmol/L 3.4-5.1 [facility] Protein [Mass/volume] in Serum or Plasma 6.2 g/dL 6.4-8.3 L [facility] Sodium [Moles/volume] in Serum or Plasma 134 mmol/L 136-145 L [facility] Aspartate aminotransferase [Enzymatic activity/volume] in Serum or Plasma 15 U/L <40 [facility] Urea nitrogen [Mass/volume] in Serum or Plasma 26 mg/dL 6-20 H [facility] Osmolality of Serum or Plasma by calculation 284 mosm/kg 275-300 [facility] Creatinine/Urea nitrogen [Mass Ratio] in Serum or Plasma 20 [facility] Bicarbonate [Moles/volume] in Serum 21 mmol/L 22-29 L [facility] Alanine aminotransferase [Enzymatic activity/volume] in Seru m or Plasma 12 U/L <41 [facility] Anion gap 3 in Serum or Plasma 10 mmol/L 8-15 [facility] Glomerular filtration rate/1.73 sq M pre dicted among non-blacks [Volume Rate/Area] in Serum or Plasma by Creatinine-based formula (MDRD) 62 mL/min/1.73m2 >60 [facility] Glomerular filtration rate/1.73 sq M pre dicted among blacks [Volume Rate/Area] in Serum or Plasma by Creatinine-based formula (MDRD) 72 mL/min/1.73m2 >60 [facility] ID Date Data Source [id number] 09/25/2020 05:33:25 PM EDT [facility] Name Value Range Interpretation Code Description Data Irish rce(s) Supporting Document(s) Progress Note [facility] DSAJZg2wZeTJRaYg86/OFMitIDLzb7AjWDlcSVs5YFanSRSrF7RnGWU6rW2gVOL7LXtJIbDeSzHbXPQ4 lbm [file] Rs6GCvC2POJ5xXYtTd1KDHooLnUURrFiRR0YIAj= ID Date Data Source [id number] 09/25/2020 05:33:20 PM EDT [facility] Name Value Range Interpretation Code Description Data Irish rce(s) Supporting Document(s) Progress Note [facility] FYSPYu3tKwYLJhMm83/QYAqvPTGpm5JvDBwtXLf3SZomXESeE1PaZCC1lP5vBMZ4DKeBBcQaJnNgIUM6 lbm [file] RuivVeVyRT0LDy7ROfB0KJK5yDSuEe8GPlJiYNPKZcZbUS5QLXz= ID Date Data Source [id number] 09/22/2020 12:28:33 PM EDT [facility] Name Value Range Interpretation Code Description Data Irish rce(s) Supporting Document(s) Progress Note [facility] WCXTOc5nNrULKaCg54/NBNgxLDNwb4SbZOzjCGz2OIzvIPZqI7DgNQP6oK9hHJN5IXmSJwHqHhPgRYGp lbm [file] AgICAgICAgICAgICAgICAgICAgICAgICAgICAgICAg ICAgICAgICAgICAgICAgICAgICAgICAgICAgICAgICAgICAgICAgICAgICAgICAgDQogICAgICAgICAg ICAgICAgICAgICAgICAgICAgICAgICAgICAgICAgICAgICAgICAgICAgICAgICAgICAgICAgICAgICAg ICAgICAgICAgICAgICAgICAgICAgICAgICAgICAgDQ ogICAgICAgICAgICAgICAgICAgICAgICAgICAgICAgICAgICAgICAgICAgICAgICAgICAgICAgICAgIC AgICAgICAgICAgICAgICAgICAgICAgICAgICAgICAgICAgICAgICAgDQogICAgICAgICAgICAgICAgIC AgICAgICAgICAgICAgICAgICAgICAgICAgICAgICAg ICAgICAgICAgICAgICAgICAgICAgICAgICAgICAgICAgICAgICAgICAgICAgICAgICAgDQogICAgICAg ICAgICAgICAgICAgICAgICAgICAgICAgICAgICAgICAgICAgICAgICAgICAgICAgICAgICAgICAgICAg ICAgICAgICAgICAgICAgICAgICAgICAgICAgICAgIC AgDQogICAgICAgICAgICAgICAgICAgICAgICAgICAgICAgICAgICAgICAgICAgICAgICAgICAgICAgIC AgICAgICAgICAgICAgICAgICAgICAgICAgICAgICAgICAgICAgICAgICAgDQogICAgICAgICAgICAgIC AgICAgICAgICAgICAgICAgICAgICAgICAgICAgICAg ICAgICAgICAgICAgICAgICAgICAgICAgICAgICAgICAgICAgICAgICAgICAgICAgICAgICAgDQogICAg ICAgICAgICAgICAgICAgICAgICAgICAgICAgICAgICAgICAgICAgICAgICAgICAgICAgICAgICAgICAg ICAgICAgICAgICAgICAgICAgICAgICAgICAgICAgIC AgICAgDQogICAgICAgICAgICAgICAgICAgICAgICAgICAgICAgICAgICAgICAgICAgICAgICAgICAgIC AgICAgICAgICAgICAgICAgICAgICAgICAgICAgICAgICAgICAgICAgICAgICAgDQogICAgICAgICAgIC AgICAgICAgICAgICAgICAgICAgICAgICAgICAgICAg ICAgICAgICAgICAgICAgICAgICAgICAgICAgICAgICAgICAgICAgICAgICAgICAgICAgICAgICAgDQo8 O4iyZAYjIFCzME6lBWm4Yo2+NWtNWdZlCYK8kvVboT8MAN7cp3HfKQgeEPOfc3HwPXv2VX9MACOtMFez DN4LYQobmj5PXVJnTZZwkBJYr3wlMkPlZIX4PFCkJs dyLW9VQETvT3xkfdLkJIUpWXIZCLibSTUIGNlwPKGNXHJcYHPkSrZiNaYfADDcTCHlYDWTTUF3TTLoHe JgJVudKL3Uh8XscKX1ZRz+Ta5JQL8aa4ItJHlgTNFkAW7vop4OGShTDuMaE5EaznP3MEB1AFFpHl2GRC OuHZKruIQsEQHlWRQXTgAwX3NnhF22NIWFQn9+DQpl bhFfVlfHXvF2SREro0KvGCy9TP6BXJFeSTs7uNRoAJSnD9Xto1QaBa97IGNdVsaqNCf0h9ZeJZ0cF3Uh J7owmXwpGNMtZOUuWG1wGF8nHIWtZIW2TkOqVYVYFK7BATXpHECdvHRrTXCqPAJVMY2CXYzrPBW3SAKy vkXpvZGuSRadES0YYLGwgvOeYyIrGAILQGl+Pg0KZW 5ha4DuHTwiUjXtEP8jmq1EFXcHAzOcU5P0iLFuE7J3UNdcKn6ZEEPdIGHbWeLtUPALORwkOD3BWW5zbt V8LE4AsFWyKJLgVPStvITwYDh5Y67oxUSjNWjjDW5EPYN+Zeferino+Hb5PVKKfYYPxPNSgCfIqTOGSPuWuB9 ObU9KGr9LrY8VqVL48cZxzniLhCBdmYW8YFI3nRSUs ZYQTWG2ReBNloK3dtyOrAZWaVGTYSaBuM03oqPRdPMQyJYRfYFYdQn0ETWAvD8HzibCeoLmqgfKfQUGh VGYLAJ9YSGwwbpUozJFpvBvvBG93cCgfTT8CJz9QYgRaCR0sdh1IhVItXp7COQKqXu4ZUSWpUZMjEVGh KQD2GQEgOgMaOHyjHMTuZNKkUCV8EPUwXMVyAA9LNo TuHBExVkhaYnNwZQKuAPPlzv6WADSePDS5ZEZoZgElRFQlSHRfEElzATLkYHBeUNL6UZQzUSCcHX8UNk HjAGUrVCTgNFqmIDLuPOCycy1YGLVhWIXmFFOoSbBgMOPuHHYkUQzvYZKpJPD1JsR6XLSeEMMzNS9JBk CxUVChPIq7QeJgWFNzICLsks1GIHIqUBYhVIl8KTMj GOTqGIHcUXgxYUHyUETkELD6FUCsAECwAI8UAmHmPDHfFFP6BXTrVRGzHUIuvz9UAPUfXVSbGFQjXvLu CMRgVLQbOEarUYArFSP7Nqv6AXZnXVBaAB8TXjCnOCDwCCr0PDTvTEYsJXTohf9TYXLuLYJzTLn9FfUr JRByHGFgOKptXIHjHGPhSLK0BJWtFNSbHB3EGxWzSO FgLoN6IHTjHHNdGGKtak7TIDFvUVTkFtw5NCAnQQDgYBSxGYhyJYAnVSPzNMTvMKXwGQBjZW0DMmTrAV NuRrPkBFshFYVmTOVgio7EVTAdUSKrJUKhCIHrGLRfMJVnCQrcUBAeLAT9TMn0RWMiUFBfFB1NRkZdEY DtCyBmDBKsFJRcFHCbgn7ZDDKcNBObDYE4SOYhSGEr VFQdUMyuZDAoPLV9FAN1BRDvSDNkYN9SGgLbLYYhSkqxCySbPXYwCVUbdj7PPLHjHVItMuK5AlKnNMOh TXCsXXfsQISvDGA4KkytPZDgQSOzVC6JSnZsGYTeYgq3DupiVORlAVLcji7IGGLaOASsSBk0FhBiTJCm BAMuDGtgQXIuPEN9KUotJBFnDFYtKX5VCrLzAHPcQi hlOGgbMFEqTXUozy7TOZKlTQYzIAH9VbZzPVRtSPFjMJrpHWRnZNTiORX4KETjIDXiDU7HSsZbFJHjMK AmAAShTANkHGEtsn6GIGXxVRT5PXV5UgYrHDYbNLAlINg3woCjbROiZSd5YI3BT5OsksPcWxbGDq5Hg4 66KGA5BWZoDu1DR1seRg9eCMHuJSDTRx6DQAl2YOZu SAS6NTgaBRX9KeC4PSJ1OLauYQvwTJY4FYOyIAO+MYl5ZhTkCMV6FHYrBKEsURP0OJq6PIQdV3S0Ghdi ZwD6WP1hTSPIWe2+XYxyzYJhaWtvMITZRxCoGqGvESinAZEJOr1J ID Date Data Source [id number] 09/22/2020 12:28:28 PM EDT [facility] Name Value Range Interpretation Code Description Data Irish rce(s) Supporting Document(s) Progress Note [facility] ROEFDw0ySwTRMfOk66/ZCFewIPTpd3DnOIryLGz8XBfiOLSoK8PnAHK3yM5uHXX3ADoSIuKwSpRjZESk lbm [file] d2DrXl7M76A9tP6G47Jv6WzIVR8bPfQdi2E7QIEB9BrvCntXj1SdHuvWusb7d/vfUHJX38OkJ0K9N+ACUÑA [file] AgICAgICAgICAgICAgICAgICAgICAgICAgICAgICAgICAgICAgICAgICAgICAgICAgICAgICAgICAgIC AgICAgICAgICAgICAgICAgICAgICAgICAgICAgICAg ICAgICAgICANCiAgICAgICAgICAgICAgICAgICAgICAgICAgICAgICAgICAgICAgICAgICAgICAgICAg ICAgICAgICAgICAgICAgICAgICAgICAgICAgICAgICAgICAgICAgICAgICAgICAgICANCiAgICAgICAg ICAgICAgICAgICAgICAgICAgICAgICAgICAgICAgIC AgICAgICAgICAgICAgICAgICAgICAgICAgICAgICAgICAgICAgICAgICAgICAgICAgICAgICAgICAgIC ANCiAgICAgICAgICAgICAgICAgICAgICAgICAgICAgICAgICAgICAgICAgICAgICAgICAgICAgICAgIC AgICAgICAgICAgICAgICAgICAgICAgICAgICAgICAg ICAgICAgICAgICANCiAgICAgICAgICAgICAgICAgICAgICAgICAgICAgICAgICAgICAgICAgICAgICAg ICAgICAgICAgICAgICAgICAgICAgICAgICAgICAgICAgICAgICAgICAgICAgICAgICAgICANCiAgICAg ICAgICAgICAgICAgICAgICAgICAgICAgICAgICAgIC AgICAgICAgICAgICAgICAgICAgICAgICAgICAgICAgICAgICAgICAgICAgICAgICAgICAgICAgICAgIC AgICANCiAgICAgICAgICAgICAgICAgICAgICAgICAgICAgICAgICAgICAgICAgICAgICAgICAgICAgIC AgICAgICAgICAgICAgICAgICAgICAgICAgICAgICAg ICAgICAgICAgICAgICANCiAgICAgICAgICAgICAgICAgICAgICAgICAgICAgICAgICAgICAgICAgICAg ICAgICAgICAgICAgICAgICAgICAgICAgICAgICAgICAgICAgICAgICAgICAgICAgICAgICAgICANCiAg ICAgICAgICAgICAgICAgICAgICAgICAgICAgICAgIC AgICAgICAgICAgICAgICAgICAgICAgICAgICAgICAgICAgICAgICAgICAgICAgICAgICAgICAgICAgIC AgICAgICANCiAgICAgICAgICAgICAgICAgICAgICAgICAgICAgICAgICAgICAgICAgICAgICAgICAgIC AgICAgICAgICAgICAgICAgICAgICAgICAgICAgICAg ICAgICAgICAgICAgICAgICANCjw/dXPfE2yhiXKstcI9L0ovAh7USj2KVB4nj4SkZFZjMZyvnxWqClvI XsVhBQKaJvtMFsp5NRayFK3EiWVhO7EyL3QoLBqxWL7CWSQuABZzsMYvUGHtFRUbOpM6AIVtKUqyMV8F vDZpHVrxCRFwFLStMdCaJNJpUJ1ECSNzX259naOuNk 6AZr9QUyInSX1fnk0ADbFyFESuNydJXsc2FErfZT5AvYVsxYEgZwLqAEVMKbSbY8gts0ZgPjYvPRIEWH opQA9Ku8ZvuCShUQe+Yg5ULV3ez1RhULdlTmTnRR8mav8ARKtVPaVmE0PqyNjlHKOgl3qfOEVvTQ0qlF OyXJH0ZGUrgD3yEULtc25qsSjpHJOyMMKuPQ7wTG0j YRXyIBF1BrYhEEBLXO0ZVKCoOQGfwEAdSAVjZBNQJQ2KJYsqAGS1ZEWfbnMsmOIcYFmqYG0WNAVfwlZf MjEgMCBSDQo+Lb8TTM5he8FaJOsaWnJaMI6qdp3JDXlZHtMmX9U1jQScU7X2XTwoFe4TRUDrGFDaVWmv UEAANXkpIJ4PUT7bkmG5SZ6IeCPbHXLxISDfeKIpGA h0S05onKAiXMsbNN9HAHJ+Zeferino+Rx3ADHYeWNYhUQWaFpEuAVNZNuJkT8VuP0LFn8MfL7JmWT97vOpxpg PjGMeyST3NBP6vLTShJMGOVL1YzXJxcN9psaYkFLUnUIFRRcRtU26gsLAeDEDeCOYjQSSoRo1PNSRpF2 SgrrVwaRfpwsMpNEDpDQLVUV9HAYlvesGrgLEjrChq IL53pJroZC0ZVn6GWeRlEO3cke8VxMNeAv9IHCCyVA6NPLHvRQLgUWUjGNK5UEBfVoRjAZqrQAGvZQNg FNW4USHfBKQmJS8KOoSsXGKnDeC4PJVfUWNoJMNvbg1MVEPhWYBzGVRnWPSoNXDzXCWkWEfsYTToXZPw TUR4YEDiCYVlJB2MZzAmPHPtOMF6PutqTWHkIWUswu 1QFTJbUXYvRBv8EKLxEDRcUYXbBUjrYZLlVYO0XDO3EUFoYXFkKI6YCdSjUJXkYHj9PJstPIYiYVAvhc 6HECTtUEKlJZN4YGXjHKZlCWNnDXbnHMSbSHH2SuG0JYGdGSEjJM4WOvGhVFRbTMe8FUOqIXYkUQErlv 8OADMfIXGrZWzyIZRuYMKiHHPcSQbgISVxCXYqCLY0 TWXvCYOiKD2YLxQzICNaNNPbFOQdFGMwMMXpbz9YONTiZJNsVSY3XZRmFLUcLKDfZNyoPFVdNVYlUMK6 ZTDnRBDzQV7LNqWcHYWnFcJeAkXmCTUaLRSsly3ANVXrETVvXhIxWOOzMAJhNRPeWOuwZELpUJPrXXDa TWWvVAVsEG6ERuPnUWXwThJ6HwCzDCMlSPXqtp4YZF AtUPQdGFXyUJSgMLDjKOSxBVuxEGLrXLQ4YMv4OTGvAAUcOB9OLyLkVLKpNxY5MkKdCROuWCBxmk1SjH WaiZgtlm2XFMvXLa3CmGewINM7FUvwFm9nnXUlIvDuGLHDEe2SisYmWBGqXTBLIIubYTAkZZxgI5VvIO j7OVTbUzs7EPA0FDXkWZJbVHXgETKtSsKiMbM4TEL8 WsX7QNQ0XcI7KEO6XVL1UjX6GKNgHHCqQJDpWNX+DU5lQEl+Jp1Vl8TtkdD5jfXkXJthHSa9Or4MMXXT T0YNCg== ID Date Data Source [id number] 09/21/2020 12:21:19 PM EDT [facility] Name Value Range Interpretation Code Description Data Irish rce(s) Supporting Document(s) Progress Note [facility] PVHPCt6jYaMSQgZh25/INDisRFCuz1YwYVqbHLa7SAakRMKuD1UsVZU2bW8nXKG0QGjSCbEuBdKrHCVa lbm [file] dGE+DQogICAgICAgICAgICAgICAgICAgICAgICAgICAgICAgICAgICAgICAgICAgICAgICAgICAgICAg ICAgICAgICAgICAgICAgICAgICAgICAgICAgICAgICAgICAgICAgICAgICAgDQogICAgICAgICAgICAg ICAgICAgICAgICAgICAgICAgICAgICAgICAgICAgIC AgICAgICAgICAgICAgICAgICAgICAgICAgICAgICAgICAgICAgICAgICAgICAgICAgICAgICAgDQogIC AgICAgICAgICAgICAgICAgICAgICAgICAgICAgICAgICAgICAgICAgICAgICAgICAgICAgICAgICAgIC AgICAgICAgICAgICAgICAgICAgICAgICAgICAgICAg ICAgICAgDQogICAgICAgICAgICAgICAgICAgICAgICAgICAgICAgICAgICAgICAgICAgICAgICAgICAg ICAgICAgICAgICAgICAgICAgICAgICAgICAgICAgICAgICAgICAgICAgICAgICAgDQogICAgICAgICAg ICAgICAgICAgICAgICAgICAgICAgICAgICAgICAgIC AgICAgICAgICAgICAgICAgICAgICAgICAgICAgICAgICAgICAgICAgICAgICAgICAgICAgICAgICAgDQ ogICAgICAgICAgICAgICAgICAgICAgICAgICAgICAgICAgICAgICAgICAgICAgICAgICAgICAgICAgIC AgICAgICAgICAgICAgICAgICAgICAgICAgICAgICAg ICAgICAgICAgDQogICAgICAgICAgICAgICAgICAgICAgICAgICAgICAgICAgICAgICAgICAgICAgICAg ICAgICAgICAgICAgICAgICAgICAgICAgICAgICAgICAgICAgICAgICAgICAgICAgICAgDQogICAgICAg ICAgICAgICAgICAgICAgICAgICAgICAgICAgICAgIC AgICAgICAgICAgICAgICAgICAgICAgICAgICAgICAgICAgICAgICAgICAgICAgICAgICAgICAgICAgIC AgDQogICAgICAgICAgICAgICAgICAgICAgICAgICAgICAgICAgICAgICAgICAgICAgICAgICAgICAgIC AgICAgICAgICAgICAgICAgICAgICAgICAgICAgICAg ICAgICAgICAgICAgDQogICAgICAgICAgICAgICAgICAgICAgICAgICAgICAgICAgICAgICAgICAgICAg ANWsFMYoBJAjZJBgKBBfUZGwVRUtAXIwHMQcUMAnRJXiQHDuQEPdWXWiSEUfXEGdGFLsBBHvUIa5B4yy KDNnKDUiPO1nYAk9Vg3+WZyQWrTuTSI7smEbfJ0FWB 0kr9EeCGomISTyx4SrILd8BQ3VVLEwRLouXZ2XPDaztb1EPHWxWHRvpKEQa0dbCnVzALU7LDMjPizkMZ 5FSRYwN1dvmxSuUISaPTTORUmkZSNRTNtaOJTLMNBxAKTyIpJrDbVrOAKeSK2IEJUkU446vpKrAV6FMr 5PWpOtSP9ptn0CGyVcZNMbGfhKIik8BBpjNW5NjLWi iSRmIFVhWOURRjEnW3uvp1BuQsKyHMRDZCbeFG8Hv6QmsCXoNZt+Rp4IZJ0dw6IcMMuhHXVjOQ7wke5T TGrCPuGlA1QupNjxHBZsf0ppSVEyOP2fmGMsJEW3LONakMTdvVBCTBGicLKzfHHkQnygDLPfENEkQY5j QJ2eDURbQXCvZjC9NWKIYW1CURTsMBFxfHMeWAGsYQ RUQP3ZHAxmSGO0OCGchaGqaBSjWKztXG7GKJEtfxDzNyBnLZTFIJw+Id7AWB9ir6PzKRwfZZRuZG8pxq 8BTXiBHzCyI0N6pSHaT5L4UNepNc7CCNQlESWoQoMdUJQSZLrpPA1DHH7ljhQ9XF6OhUFhRKHrLMJqtP HsVAv6T88cuDKhZZavPS4NTYO+Zeferino+Fq1NPHHqLCGy FGWcEkMrWCCMKvGwL6NzX2NKu3MqN2ZyQM40gLnupeIgAXgcCY3ZER9rNHBjBCENTS6EwIEpzH8lgfLt OaOjWOZAQpYxO04vkDTpVBDpGLFfDPWkVr9SDZElJ2DhfiTweKpclbIjUMEwMVKRDD8DYYwubxEkcFVk mKcjUV25bPcjHC6KXq9ZAzOrTH0tat3MmHAnOa8KIV IiXn1HSOCwKKYmIZNoNEF1IGBxLgKwLTecNFOpCHBhWPF0NPReMUWwDQ0FRbHuSXZbIjX0NsTvGSLgVK Llxb8GULCkLCFnImNzUOKtDWPvBYIcVDezCRYkFANfZAI7YNBeXYAtNH0UNyNmFUBwMYX7NkPkQTIsGB Wqxq6VWUUdOYWkSuv1NMUoAZMkTLGlZJpyFHUoVQV1 JcD3ZGWmILCsAQ1PNnCnCCXcSWn2TmDmAQBxPNQtef5RJHDxSXIiZBQbEBFeHROmVLMwVCtwINWrUIQq KeS7FZYmRFMcEC2OWaDzXYDrSNSkLINuHXIjIPVmvc7ZABSyMPXzOTN8WtWsEZOpUCUmKYnaHCBjUNN4 CFtaJQXuRVUwHM9XGmRsNQTkJCX7RQzgHWOgWORmbm 6LCLSlVCVzRah5NcLxYYBdHUAzAEjjNDXpVHT6KRR8DVIxHSFeIY8AYxIlNMMeLSghCwvbFZMxSIQpig 2TETIgKZUfJAO7WbPlVMXpIFRdZZzmCZZhSFR5Ujn0OVHqGKOlHH1QOuVuVMTjYSi5MtPiVMDlYNRgxe 0KMDAwMDAzMDkwNiAwMDAwMCBuDQowMDAwMDMxMjMx ARPmTCFyTY0BDwFkSJNnUpY0ZKHfKCHoUATpdd5DJJNtTTCyAFE6HFAaVIOtIYUwTTjdZMNhTEKgNQS3 TRDtPPAwJV0VPwFtZLHfOxD7ADZmBPRjUBIaqh1ECKClCTYaDeb9QFAmDGQfJRFzOFaxEUEfFMYzROT2 VWBaIBGhZD6PYqFmBQBrNwTuLTCdQKFcXTGdgk5PEY MaXUMhCOS8SPTrSJQnKPZuCYvfJHHrYZB6SMYiWWNyYAIqZX4YRzAcCSKrFpM5WoZqUCSxKAZorl4PYO VdVEUpKbSsBEGjIBTsCZZcKLsbHCGsBQH8PDAqZSMrQCXkJP8VYvBkCNLzMwJ1UeKtFAVnCBXsse2IfQ EhjSmrrv8KFAkYIx6XzLajWVS8OXtsTq6djGHxGDGe HWVQIo9EfeXvFQCcKILZCSxtKZXrGMHzRErnOzVhFjRuQVAuGLRfLGQmHCEcYNU2PdSeXwFuEmN7E7M0 Q3CyXyRwFGWpCuX7EHVyP6G2RMVeOka6CMLiGsQ+SH9cGHo+Hi1Zb7QvnnI2ljXmRNliTqseYu9GGDYX T0YNCg== ID Date Data Source [id number] 09/21/2020 08:42:17 AM EDT [facility] Name Value Range Interpretation Code Description Data Irish e(s) Supporting Document(s) Leukocytes [#/volume] in Blood by Automated count 9.7 10*3/uL 4-10 [facility] Erythrocytes [#/volume] in Blood by Automated count 3.60 10*6/uL 4.6- 6.1 L [facility] Hemoglobin [Mass/volume] in Blood 11.7 g/dL 13.5-18 L [facility] Hematocrit [Volume Fraction] of Blood by Automated count 35.2 % 4 1-53 L [facility] Erythrocyte mean corpuscular volume [Entitic volume] by Auto mated count 97.7 fL 80-96 H [facility] Erythrocyte mean corpuscular hemoglobin [Entitic mass] by Automated count 32.5 pg 27-33 [facility] Erythrocyte mean corpuscular hemoglobin concentration [Mass/volume] by Autom[facility] 33.3 g[facility] [Ratio] by Automated count 14.5 % 11.5-14.5 [facility] Platelets [#/volume] in Blood by Automated count 445 10*3/uL 150-400 H [facility] Differential cell count method - Blood [facility] Neutrophils/100 leukocytes in Blood by Automated count 72 % [facility] Lymphocytes/100 leukocytes in Blood by Automated count 12 % [facility] Monocytes/100 leukocytes in Blood by Automated count 13 % [facility] Eosinophils/100 leukocytes in Blood by Automated count 2 % [facility] Basophils/100 leukocytes in Blood by Automated count 1 % [facility] Neutrophils [#/volume] in Blood by Automated count 7.00 10*3/uL 1.8-7 .0 [facility] Lymphocytes [#/volume] in Blood by Automated count 1.19 10*3/uL 1.2-4 .0 L [facility] Monocytes [#/volume] in Blood by Automated count 1.25 10*3/uL 0-0.8 H [facility] Eosinophils [#/volume] in Blood by Automated count 0.18 10*3/uL 0-0.5 [facility] Basophils [#/volume] in Blood by Automated count 0.07 10*3/uL 0-0.2 [facility] Nucleated erythrocytes/100 leukocytes [Ratio] in Blood by Automated count 0 /100{WBCs} 0-0 [facility] ID Date Data Source [id number] 09/21/2020 09:17:07 AM EDT [facility] Name Value Range Interpretation Code Description Data Irish rce(s) Supporting Document(s) Albumin [Mass/volume] in Serum or Plasma by Bromocresol green (BCG) dye binding method 3[facility]6 [facility] [Mass/volume] in Serum or Plasma 0.2 mg/dL <1.2 [facility] Calcium [Mass/volume] in Serum or Plasma 8.8 mg/dL 8.6-10.0 [facility] Chloride [Moles/volume] in Serum or Plasma 105 mmol/L 98-107 [facility] Creatinine [Mass/volume] in Serum or Plasma 1.52 mg/dL 0.70-1.20 H [facility] Glucose [Mass/volume] in Serum or Plasma 101 mg/dL 70-140 [facility] Alkaline phosphatase [Enzymatic activity/volume] in Serum or Plasma 128 U/L 40-129 [facility] Potassium [Moles/volume] in Serum or Plasma 4.3 mmol/L 3.4-5.1 [facility] Protein [Mass/volume] in Serum or Plasma 6.8 g/dL 6.4-8.3 [facility] Sodium [Moles/volume] in Serum or Plasma 133 mmol/L 136-145 L [facility] Aspartate aminotransferase [Enzymatic activity/volume] in Serum or Plasma 12 U/L <40 [facility] Urea nitrogen [Mass/volume] in Serum or Plasma 28 mg/dL 6-20 H [facility] Osmolality of Serum or Plasma by calculation 282 mosm/kg 275-300 [facility] Creatinine/Urea nitrogen [Mass Ratio] in Serum or Plasma 18 [facility] Bicarbonate [Moles/volume] in Serum 19 mmol/L 22-29 L [facility] Alanine aminotransferase [Enzymatic activity/volume] in Seru m or Plasma 24 U/L <41 [facility] Anion gap 3 in Serum or Plasma 10 mmol/L 8-15 [facility] Glomerular filtration rate/1.73 sq M pre dicted among non-blacks [Volume Rate/Area] in Serum or Plasma by Creatinine-based formula (MDRD) 51 mL/min/1.73m2 >60 L [facility] Glomerular filtration rate/1.73 sq M pre dicted among blacks [Volume Rate/Area] in Serum or Plasma by Creatinine-based formula (MDRD) 59 mL/min/1.73m2 >60 L [facility] ID Date Data Source [id number] 09/08/2020 08:05:54 PM EDT [facility] Name Value Range Interpretation Code Description Data Irish rce(s) Supporting Document(s) Progress Note [facility] EYJDJo2pPaKDJhXi88/AXOebEMWdr2KmJUjwSNy1JErsWTSkL4LfXXE4cE8hLBT7QSpMChKxRsDsDWN3 lbm [file] DQogICAgICAgICAgICAgICAgICAgICAgICAgICAgIC AgICAgICAgICAgICAgICAgICAgICAgICAgICAgICAgICAgICAgICAgICAgICAgICAgICAgICAgICAgIC AgICAgICAgICAgDQogICAgICAgICAgICAgICAgICAgICAgICAgICAgICAgICAgICAgICAgICAgICAgIC AgICAgICAgICAgICAgICAgICAgICAgICAgICAgICAg ICAgICAgICAgICAgICAgICAgICAgDQogICAgICAgICAgICAgICAgICAgICAgICAgICAgICAgICAgICAg ICAgICAgICAgICAgICAgICAgICAgICAgICAgICAgICAgICAgICAgICAgICAgICAgICAgICAgICAgICAg ICAgDQogICAgICAgICAgICAgICAgICAgICAgICAgIC AgICAgICAgICAgICAgICAgICAgICAgICAgICAgICAgICAgICAgICAgICAgICAgICAgICAgICAgICAgIC AgICAgICAgICAgICAgDQogICAgICAgICAgICAgICAgICAgICAgICAgICAgICAgICAgICAgICAgICAgIC AgICAgICAgICAgICAgICAgICAgICAgICAgICAgICAg ICAgICAgICAgICAgICAgICAgICAgICAgDQogICAgICAgICAgICAgICAgICAgICAgICAgICAgICAgICAg ICAgICAgICAgICAgICAgICAgICAgICAgICAgICAgICAgICAgICAgICAgICAgICAgICAgICAgICAgICAg ICAgICAgDQogICAgICAgICAgICAgICAgICAgICAgIC AgICAgICAgICAgICAgICAgICAgICAgICAgICAgICAgICAgICAgICAgICAgICAgICAgICAgICAgICAgIC AgICAgICAgICAgICAgICAgDQogICAgICAgICAgICAgICAgICAgICAgICAgICAgICAgICAgICAgICAgIC AgICAgICAgICAgICAgICAgICAgICAgICAgICAgICAg ICAgICAgICAgICAgICAgICAgICAgICAgICAgDQogICAgICAgICAgICAgICAgICAgICAgICAgICAgICAg ICAgICAgICAgICAgICAgICAgICAgICAgICAgICAgICAgICAgICAgICAgICAgICAgICAgICAgICAgICAg ICAgICAgICAgDQogICAgICAgICAgICAgICAgICAgIC AgICAgICAgICAgICAgICAgICAgICAgICAgICAgICAgICAgICAgICAgICAgICAgICAgICAgICAgICAgIC OtDKAuFYGgRWGmDHKdZRHxXRInSCx5X0ruUEIqDXHqDN0kFMh9Mx8+DSgFPcIqGWJ7zsNpfC9JHS9yy2 BrWUglOOBxg2CvZAp8GY4XVELyJJhpCD3HPZjssu4J SSOwBXGndHRUh1hqGfHuCYL6MAKyEsaxSZ8XASNbH6xwdrZwGOOjYKKAKXcaEOTEET2GQpXuJ0RzrN28 IDINCj4+ULdectDuEgcNJxGhNTYuq3ZwDZi6UC7GRQYkIciht3HnBbKwKQMLTJnlSI9WQSW3CUSoPDTz Vu6CNXDcP646flJeWK2SLi8WQwVzQF1rla8MOoPgPV JgVncIAnp7AJscPG7FjPEgCNnFkj5govIcaqHZq6NjrmUosDKWlSeoHQHUSHUvQTTgYK3BSCL2XXUtBc OmVwSySKYcLAa6WSVQELrMKyUzN6Tqk9EhJzW6ICUpUkBkTGjtVAZeQpN0QA16dRuhUZ5QZAVqFWNmNQ 76NTRkPTCpKp4XSk9DYmTgSA1vfd3GQpDsFGKqRjrK Ihd6HNubLP7QlRGoE2XkrJUle7dDAkUrW6FYQMF6BVRrZk1YQZOgDdAnCGAiHOduMU5dAZPzSIOBaVpv ymR2AG0ROT6jjuHbYK2BMjZrXa4eZw3AUrClG0BqC6ZeACEjLUZEKMwtDM2PCUyxKC3lYZ7Qt8YNyZDd kB8oyt3CIXXxMDYcUmqxcb1CCnayJ6X2eAvjIFHyQm LvDGMSNNapDM9IPANoTDJ6NITuRHGmHAJEOjCtG85tQL8LN8Emm97vRqC3EHDvWfFxMAeoUO00pTlkic GngTVceXcjPC5SGh9+MFpwbgWuFmySAeomFBISDpKoZuWYLgThWFVlHLIqIHZxIgL6UaXnPe7AOXTiIQ AwMDAxNyAwMDAwMCBuDQowMDAwMDIyNDkzIDAwMDAw MF9TAdHaFDZnQkNdHTNvDMNrHENhnc6QSUMaUFWfMHX5EvGqDSTpACUrPHjxZAEzFIX0NoD9RKWfZBNa VJ4LUjMgOICzSAS9ZLCqSJLqSFMoli4MTJTlYOOdSxLyRwJyTEKgPPWtMAocUJJiMCZ8RSHnBXYlLIVb WL9ALpCyVEWwMUk7KbfmZJWdVUAose3YROKrGCQcYQ M4ASQtQKEiBOJfNQjwFIPqQJE4NHU9KXClLUHiIK4NJmDfGMNgJIm0PBVuMHJfKDWhcr0FJQYcXPTuTV IkFsJjCWFgHHQkELfuRZYnWGIdPlE2BFRvTOXdOL0DWqPzJHSyPlQ4MmAzGQXxYAUyrj2YKJWrNNWjDJ b2WaUmXJUcTKCaHOzwCRCdYCQbSNe8MCBpZJAiMX2E VrYvHXEjWpGtXaPoTVNeEQRwxy9OEMMyMWOjLtY6ZCPgUJOpPEUdTVieVZDgMBCvUMikFNHcXXBeUU3M GfCmNEPoFaCdKDMnUKXnGVGgqh8GSWYxBTLvZME4FzXxGTKiLOShNDhvDKStJIA9EGC1VOWmEXTqUO6F YqQjLWjyNPNBPwt7UOwlU7o6ZSBgIF5JD7Vpr0JdTo JgPBOYOHkbTL4gteYpEITnUh2QW6nBNvavJETqHKg9L2AcDGFjK8XmDjB3PDHmYGQiYTXgALZqAr2cEQ U8KyP7APA2KRO3SZVqUCJmAQW9A0RrEUQlTXSjIyZbIzWyJW8HOz9JIcX8LDS6qHBuGd1KDmR8GgsKVv XrFL5JCHh= ID Date Data Source [id number] 09/08/2020 08:05:49 PM EDT [facility] Name Value Range Interpretation Code Description Data Irish rce(s) Supporting Document(s) Progress Note [facility] RQIQDe9nEoZKJuQg29/PLSynNYJhl1QrERedDDx6IHxlICMuF7AvAOY0oE7vDHU1MXkGTxSpOeSePXL2 lbm [file] L5NQT4CAMvGNRaPTg7DJ2oZTWPSr7+CSuhkPWhzFogVIPOLoMvKyM4GTaqPLHLIi9W ID Date Data Source [id number] 09/08/2020 08:37:31 AM EDT [facility] Name Value Range Interpretation Code Description Data Irish rce(s) Supporting Document(s) Progress Note [facility] WNIMSd0kKiVJAzMi38/PHAwtGXLto3PmCCvxCPk9OQpvTMKfO6ZaEHW6vO8tWQY6OTzFQfWvCvOhOZY5 lbm [file] ICAgICAgICAgICAgICAgICAgICAgICAgICAgICAgIC WsFHPcWBVyHSAiNYEyPVOrCYKaUARkRBCaOKNwMQWaCABhKECgCMRdFXPhSWTbINAsFFCqRVKzEJ6VJM AgICAgICAgICAgICAgICAgICAgICAgICAgICAgICAgICAgICAgICAgICAgICAgICAgICAgICAgICAgIC AgICAgICAgICAgICAgICAgICAgICAgICAgICAgICAg KZKnUPWfIN4HHQCjTQJjXFXwGLYxYKTmVFOhPAGbQXWgJZYrYXLyZTTaMPSpPAXjNDTlACLjKPBxUYMa YCChAAFwUGFvZHOwWSReBHFvAHAaPSOtZZZyJVDdUAKcJGDmDWDkVHRcEHLaURHpQT0TJYOxUAItGLMa ICAgICAgICAgICAgICAgICAgICAgICAgICAgICAgIC AgICAgICAgICAgICAgICAgICAgICAgICAgICAgICAgICAgICAgICAgICAgICAgICAgICAgICAgICAgIA 0KICAgICAgICAgICAgICAgICAgICAgICAgICAgICAgICAgICAgICAgICAgICAgICAgICAgICAgICAgIC AgICAgICAgICAgICAgICAgICAgICAgICAgICAgICAg SGCuHSKmRIYsGX4KEWWsKCZrBRVyEXGaDCAiCXQyFJGiNKQdIXTrDKPwAUUmBZKsRGHxEZAzGZJbFSUx VIDkNPMwIIWcFSOxVKDvGJQsAUZcFKZzBEKkNOLuZKQnQRQgDTGiFTIhGOFrYUWpYWAbFH6WOLUcZDCi ICAgICAgICAgICAgICAgICAgICAgICAgICAgICAgIC AgICAgICAgICAgICAgICAgICAgICAgICAgICAgICAgICAgICAgICAgICAgICAgICAgICAgICAgICAgIC OcGQ0SNLKhBYBzPMLbRXLpJTBmBCCiFENwQSMtQWOnTJExBQQoZVCwTRMvCAYgWVJuWBSwCGVyRVRiDF AgICAgICAgICAgICAgICAgICAgICAgICAgICAgICAg KLVsQVKzFUUqRFMvKR4ZJDNhZXAiXFTcEAInZRXhCZNbGQMvIUMqCFHqALVlWWGrUDSsLWGwNRDgRDWc YDGlLJQgMFMoDTBaZMYsNGVfGHUsEZRoSQSuKUYeIIEaVCOsMBLzORDsOFObCVKfYDXnZFWxMA3XCY62 wXGcw5Z1IZFsWF5cely/Xg6RGVuijyIdcVKrCE2BYy YhER4hwb2XAsXfYE4khy9LMKkFIrEmN1J9vYXwGKCaZSBIBbPdD34nXVinDt06JLozVLLqStIeFLw2Ko 2WCjDxW5miXARzIsH0YGFwNaN8ZXGzByS0WRLlWyMdAWObMENgRYLsIVGXYZC4JLFuNjRaWpVkEFOmED 1SWQZqR700njNmIs3QKe9LKeDaOU8dus0JUpTmNBQb UdeDPsj6BJxhKN2IbAExeZLmFXTeCTNBInOcH2qmt0OsTqEmKKZYDFgoTP4Tr2GesRDhZDw+Da7MGF9h z1AdICicTJRdXO0awh3FPWkDKuJyP3YfcSltZAZtb1ycANFfCW3ieYIzOMP6XALafYXcQGYFRKV7EEQj IHywMZPVKIX4WCNzMp9yBBKjKOU3TeL9LCOGQA2DVO UoPUEcyZNmRJNeCRMCMR7CZMncYKJ3VSNzrsGkfXKpNMdcAZ4GGXGfsdYoBwLqROCDPAp+Mu1KKC3nd6 DaKEmbKzZbJW1icy7GUDvWNdJrQ0B1tBDdW1X6XQyzHp4IDSTlWRVnUrSrEMSHOKaiIQ5AXV5bheN6DA 4JvJMiXCDbPJGleDIaEKl5Z82kbRHeFLsySC6AWRX+ Zeferino+Of6AOVWfZQYxXKFaNzYmMXSLBrVpR0WhN6SWp0XzP8NlZC89lBfjqaDkOWarUP2YRJ4jDJRmTBOD UF3VfCBxkW3atlGjPDDtQOFGStSdV38gdKDgDXIbWCOdPHTfEf1VFRXeY3OcrcAdaHfbrnNhYZKbRUBL TX5NFTphviXknMMoxNoiZZ23mBewTJ0CXo4PViHnZA 3npg6YyLNxPx8UMTIuGo0ULHPtESHmPQBdNSP1OMOeCeUkNEidGDFkQUMuIWA1VFYnVYXmID9AAjLnRK BcWjqnFyazDAXeJTVcdh9YAJCbFEL7LBQ2QPTuOFGcDPCpSIegEGDdKLMyIHL8OTYvENDeDU3ZDoDxED FuXDRlBxadMOGhELBwuo0VZQHpELSyWTJ6FrCkCHYt SYSoVYwcRRItBLF9Qxp2ZCJnSGIyZS3KMtAeUOZgOLc2RJWmKZVuURLjkz9UIJGpXQDjTXi0RVGsEUPq AEHfRFgvEGKfNXJpJJj0VIXiTUXmWU3NZyPlEEPtKYB3HqrsATBiQWRssc4XXXEyVBUjWDr6YIRvAMPe TJIeLVggBUYwWIX4RsC0DIZdKQHnJR9RWuAcQQEaNZ w9LIUzBIAlUNQvvo5DJUQtSVIxCRdqUYCfQNYrUJKzOLqtLIYcQMKmOQK0YORsNCNbMS8ZUfQjTFPoFr O5LPHqKHHcSDZesw6YBUHqOSHnBqh1GCDyXYQfAPBzWQnkTRCaKKFqPXB0RROiBKJiQN6XXpGbZUTkZd DqSHBmPTRoSQJjdo7YKZJdZGRrDJE5QANnVQBoNHCq BKylKRFtZZT9DiV1NZOhCRVsUH5FDiLiACGiHjZ3HCnbEPKmUOGjlu7DUAJtEJHuRYKkBkPsWHZeIBKv WCuxTUXiERC7HKG3KTVtVMCtCX6BYtZuJNXgYlwfETJkVJMqKBYqsp3COLQnIEGwKiRcCIHfYKPjAOCw QYivPPJlGDM6YSXyVTCbLJWvXB1GVsBqTUJcLbt1YB goTXHcNBTzjm5YAEOzOYMrDBr9WDEkCLHlZJTeWKofVVIeVNH5SOV2HHFcBNPeWH9GPcQyEAZyFrplRR klLFLsVTFsco7UNQHsJQUyMKwyNSXhCMFfOGKkWWreGQEeTBYhFgNbFOHxXDFoVM9XUxZkBZAmQPJtXd YdYTBhOLPqcw2OUJWhWCC8VRFhLmAtDWYfIKSfIQy0 rjCynFZiMQa6RC8ZI6YfuvXgGuoZFn5Ye844GQG6IDSvBz5JU5nwYn2dLLGoDEWDAg6MUYv4BALsHnD6 UxFqUHDnZbOpFMC1HCX1TEF2WKL3ZhM0LFc+SXgbLjKsOQGdSMF9QUUoIcO3YwD4AFdvYWu0ZSGdPNO7 BM9sXBZWBm8+VDsnoPYkiCzhZRMXBtOaReJ8PBklMGAIRw0L ID Date Data Source [id number] 09/06/2020 08:19:09 AM EDT [facility] Name Value Range Interpretation Code Description Data Irish e(s) Supporting Document(s) Leukocytes [#/volume] in Blood by Automated count 9.6 10*3/uL 4-10 [facility] Erythrocytes [#/volume] in Blood by Automated count 3.58 10*6/uL 4.6- 6.1 L [facility] Hemoglobin [Mass/volume] in Blood 11.6 g/dL 13.5-18 L [facility] Hematocrit [Volume Fraction] of Blood by Automated count 34.6 % 4 1-53 L [facility] Erythrocyte mean corpuscular volume [Entitic volume] by Auto mated count 96.6 fL 80-96 H [facility] Erythrocyte mean corpuscular hemoglobin [Entitic mass] by Automated count 32.4 pg 27-33 [facility] Erythrocyte mean corpuscular hemoglobin concentration [Mass/volume] by Automated [facility] 33.6 g/[facility].0[facility] width [Ratio] by Automated count 13.4 % 11.5-14.5 [facility] Platelets [#/volume] in Blood by Automated count 364 10*3/uL 150-400 [facility] Differential cell count method - Blood [facility] Neutrophils/100 leukocytes in Blood by Automated count 73 % [facility] Lymphocytes/100 leukocytes in Blood by Automated count 11 % [facility] Monocytes/100 leukocytes in Blood by Automated count 13 % [facility] Eosinophils/100 leukocytes in Blood by Automated count 2 % [facility] Basophils/100 leukocytes in Blood by Automated count 1 % [facility] Neutrophils [#/volume] in Blood by Automated count 7.06 10*3/uL 1.8-7 .0 H [facility] Lymphocytes [#/volume] in Blood by Automated count 1.01 10*3/uL 1.2-4 .0 L [facility] Monocytes [#/volume] in Blood by Automated count 1.28 10*3/uL 0-0.8 H [facility] Eosinophils [#/volume] in Blood by Automated count 0.14 10*3/uL 0-0.5 [facility] Basophils [#/volume] in Blood by Automated count 0.09 10*3/uL 0-0.2 [facility] Nucleated erythrocytes/100 leukocytes [Ratio] in Blood by Automated count 0 /100{WBCs} 0-0 [facility] ID Date Data Source [id number] 09/06/2020 09:12:18 AM EDT [facility] Name Value Range Interpretation Code Description Data Irish rce(s) Supporting Document(s) Albumin [Mass/volume] in Serum or Plasma by Bromocresol green (BCG) dye binding method 3.6 g/dL 3.5-5.2 [facility] Bilirubin.total [Mass/volume] in Serum or Plasma 0.2 mg/dL <1.2 [facility] Calcium [Mass/volume] in Serum or Plasma 9.1 mg/dL 8.6-10.0 [facility] Chloride [Moles/volume] in Serum or Plasma 105 mmol/L 98-107 [facility] Creatinine [Mass/volume] in Serum or Plasma 1.66 mg/dL 0.70-1.20 H [facility] Glucose [Mass/volume] in Serum or Plasma 122 mg/dL 70-140 [facility] Alkaline phosphatase [Enzymatic activity/volume] in Serum or Plasma 90 U/L 40-129 [facility] Potassium [Moles/volume] in Serum or Plasma 4.2 mmol/L 3.4-5.1 [facility] Protein [Mass/volume] in Serum or Plasma 6.5 g/dL 6.4-8.3 [facility] Sodium [Moles/volume] in Serum or Plasma 138 mmol/L 136-145 [facility] Aspartate aminotransferase [Enzymatic activity/volume] in Serum or Plasma 18 U/L <40 [facility] Urea nitrogen [Mass/volume] in Serum or Plasma 26 mg/dL 6-20 H [facility] Osmolality of Serum or Plasma by calculation 292 mosm/kg 275-300 [facility] Creatinine/Urea nitrogen [Mass Ratio] in Serum or Plasma 16 [facility] Bicarbonate [Moles/volume] in Serum 22 mmol/L 22-29 [facility] Alanine aminotransferase [Enzymatic activity/volume] in Seru m or Plasma 28 U/L <41 [facility] Anion gap 3 in Serum or Plasma 11 mmol/L 8-15 [facility] Glomerular filtration rate/1.73 sq M pre dicted among non-blacks [Volume Rate/Area] in Serum or Plasma by Creatinine-based formula (MDRD) 46 mL/min/1.73m2 >60 L [facility] Glomerular filtration rate/1.73 sq M pre dicted among blacks [Volume Rate/Area] in Serum or Plasma by Creatinine-based formula (MDRD) 53 mL/min/1.73m2 >60 L [facility] ID Date Data Source [id number] 08/26/2020 12:24:30 PM EDT [facility] Name Value Range Interpretation Code Description Data Irish rce(s) Supporting Document(s) Progress Note [facility] TOUSLc0fPvCQZzUq36/PAWxoNHQmt0HgRWliHDr3YBxzFKGeJ6UyWUB1rP5hYFD5VYgBHsNgBbDzPpL9 [place] [file] [id number]== ID Date Data Source [id number] 08/24/2020 08:56:43 AM EDT [facility] Name Value Range Interpretation Code Description Data Irish rce(s) Supporting Document(s) Leukocytes [#/volume] in Blood by Automated count 12.1 10*3/uL 4-10 H [facility] Erythrocytes [#/volume] in Blood by Automated count 4.16 10*6/uL 4.6- 6.1 L [facility] Hemoglobin [Mass/volume] in Blood 13.3 g/dL 13.5-18 L [facility] Hematocrit [Volume Fraction] of Blood by Automated count 40.4 % 4 1-53 L [facility] Erythrocyte mean corpuscular volume [Entitic volume] by Auto mated count 97.1 fL 80-96 H [facility] Erythrocyte mean corpuscular hemoglobin [Entitic mass] by Automated count 31.9 pg 27-33 [facility] Erythrocyte mean corpuscular hemoglobin concentration [Mass/volume] by Automated count 32.9 g/dL 32.0-36.0 [facility] E[facility]th[facility] distribution width [Ratio] by Automated count 13.6 % 11.5-14.5 [facility] Platelets [#/volume] in Blood by Automated count 523 10*3/uL 150-400 H [facility] Differential cell count method - Blood [facility] Neutrophils/100 leukocytes in Blood by Automated count 69 % [facility] Lymphocytes/100 leukocytes in Blood by Automated count 13 % [facility] Monocytes/100 leukocytes in Blood by Automated count 14 % [facility] Eosinophils/100 leukocytes in Blood by Automated count 3 % [facility] Basophils/100 leukocytes in Blood by Automated count 1 % [facility] Neutrophils [#/volume] in Blood by Automated count 8.39 10*3/uL 1.8-7 .0 [facility] Lymphocytes [#/volume] in Blood by Automated count 1.57 10*3/uL 1.2-4 .0 [facility] Monocytes [#/volume] in Blood by Automated count 1.71 10*3/uL 0-0.8 H [facility] Eosinophils [#/volume] in Blood by Automated count 0.33 10*3/uL 0-0.5 [facility] Basophils [#/volume] in Blood by Automated count 0.10 10*3/uL 0-0.2 [facility] Nucleated erythrocytes/100 leukocytes [Ratio] in Blood by Automated count 0 /100{WBCs} 0-0 [facility] ID Date Data Source [id number] 08/24/2020 09:33:38 AM EDT [facility] Name Value Range Interpretation Code Description Data Irish rce(s) Supporting Document(s) Albumin [Mass/volume] in Serum or Plasma by Bromocresol green (BCG) dye binding method 3.5 g/dL 3.5-5.2 [facility] Bilirubin.total [Mass/volume] in Serum or Plasma 0.3 mg/dL <1.2 [facility] Calcium [Mass/volume] in Serum or Plasma 8.8 mg/dL 8.6-10.0 [facility] Chloride [Moles/volume] in Serum or Plasma 101 mmol/L 98-107 [facility] Creatinine [Mass/volume] in Serum or Plasma 1.98 mg/dL 0.70-1.20 H [facility] Glucose [Mass/volume] in Serum or Plasma 100 mg/dL 70-140 [facility] Alkaline phosphatase [Enzymatic activity/volume] in Serum or Plasma 92 U/L 40-129 [facility] Potassium [Moles/volume] in Serum or Plasma 4.8 mmol/L 3.4-5.1 [facility] Protein [Mass/volume] in Serum or Plasma 6.5 g/dL 6.4-8.3 [facility] Sodium [Moles/volume] in Serum or Plasma 136 mmol/L 136-145 [facility] Aspartate aminotransferase [Enzymatic activity/volume] in Serum or Plasma 29 U/L <40 [facility] Urea nitrogen [Mass/volume] in Serum or Plasma 29 mg/dL 6-20 H [facility] Osmolality of Serum or Plasma by calculation 288 mosm/kg 275-300 [facility] Creatinine/Urea nitrogen [Mass Ratio] in Serum or Plasma 15 [facility] Bicarbonate [Moles/volume] in Serum 23 mmol/L 22-29 [facility] Alanine aminotransferase [Enzymatic activity/volume] in Seru m or Plasma 47 U/L <41 H [facility] Anion gap 3 in Serum or Plasma 13 mmol/L 8-15 [facility] Glomerular filtration rate/1.73 sq M pre dicted among non-blacks [Volume Rate/Area] in Serum or Plasma by Creatinine-based formula (MDRD) 37 mL/min/1.73m2 >60 L [facility] Glomerular filtration rate/1.73 sq M pre dicted among blacks [Volume Rate/Area] in Serum or Plasma by Creatinine-based formula (MDRD) 43 mL/min/1.73m2 >60 L [facility] ID Date Data Source [id number] 07/27/2020 03:59:18 PM [facility] Name Value Range Interpretation Code Description Data Irish rce(s) Supporting Document(s) Progress Note [facility] IMQXGx5vLtPRJdKv91/OBQifAORlb8ZbSXcpXFb2BDxrFNMrI8OsAJW2rL3wHKL5THmQOpLnBqYpKbE9 lb [file] YNCg== ID Date Data Source [id number] 07/27/2020 03:59:13 PM EST [facility] Name Value Range Interpretation Code Description Data Irish rce(s) Supporting Document(s) Progress Note [facility] XYBLZt0rSbWIYcAa64/CSCycLNNpb7QzCCywMOk1LGbaIHPlU6UpTLL9bK2aNJZ8QVtAUsLvZvVeWwZ7 lbm [file] AgICAgICAgICAgICAgICAgICAgICAgICAgICAgICAgICAgICAgICAgICAgICAgICAgICAgICAgICAgIC AgICAgICAgICAgICAgICAgICAgICAgDQogICAgICAgICAgICAgICAgICAgICAgICAgICAgICAgICAgIC AgICAgICAgICAgICAgICAgICAgICAgICAgICAgICAg ICAgICAgICAgICAgICAgICAgICAgICAgICAgICAgICAgDQogICAgICAgICAgICAgICAgICAgICAgICAg ICAgICAgICAgICAgICAgICAgICAgICAgICAgICAgICAgICAgICAgICAgICAgICAgICAgICAgICAgICAg ICAgICAgICAgICAgICAgDQogICAgICAgICAgICAgIC AgICAgICAgICAgICAgICAgICAgICAgICAgICAgICAgICAgICAgICAgICAgICAgICAgICAgICAgICAgIC AgICAgICAgICAgICAgICAgICAgICAgICAgDQogICAgICAgICAgICAgICAgICAgICAgICAgICAgICAgIC AgICAgICAgICAgICAgICAgICAgICAgICAgICAgICAg ICAgICAgICAgICAgICAgICAgICAgICAgICAgICAgICAgICAgDQogICAgICAgICAgICAgICAgICAgICAg ICAgICAgICAgICAgICAgICAgICAgICAgICAgICAgICAgICAgICAgICAgICAgICAgICAgICAgICAgICAg ICAgICAgICAgICAgICAgICAgDQogICAgICAgICAgIC AgICAgICAgICAgICAgICAgICAgICAgICAgICAgICAgICAgICAgICAgICAgICAgICAgICAgICAgICAgIC AgICAgICAgICAgICAgICAgICAgICAgICAgICAgDQogICAgICAgICAgICAgICAgICAgICAgICAgICAgIC AgICAgICAgICAgICAgICAgICAgICAgICAgICAgICAg ICAgICAgICAgICAgICAgICAgICAgICAgICAgICAgICAgICAgICAgDQogICAgICAgICAgICAgICAgICAg ICAgICAgICAgICAgICAgICAgICAgICAgICAgICAgICAgICAgICAgICAgICAgICAgICAgICAgICAgICAg ICAgICAgICAgICAgICAgICAgICAgDQogICAgICAgIC AgICAgICAgICAgICAgICAgICAgICAgICAgICAgICAgICAgICAgICAgICAgICAgICAgICAgICAgICAgIC RlXWOeFTOeVNIwYLDnDFRcVRJmDXWsLFOsQKSiZREpCDt5F7xmQXAwAPPjTY4lYWx7Eo0+DQoNCmVuZH G2muGehN5MBL8xm7DmSCsgZBDuv1TbMOx7ER4BVTVf JEmzLZ8EGMmbtk9FJEDzHHRaqKXKx4czKyDfLLM2SWUxVmbbJL4SPZDyE2lonyYiVZZnHUNFCRwsOOFJ YTprXUZGLFSmKLOqEvQjOdVfJOElXSBsMJXWIG4EDvFyT8FlnV68VGBGIs7+DTtlaqCtNlqTYeM5QOIx o6HuDHo2ZA6ZCXWtAqopl3IvAeloBEKQHAnbFV5YFS J0EZJ0GNBvEg7VVOHsQ521dgJdIA6NRp3BDjZxFE9nok0IDabbYPDaEcdMMzv0QOpuEQ5DyUYwKYsHnf 7fueQgfzEGm7QtsdOrpWUAlCono8ZdCOVXxPVlx9HzDTVIDPYncVWjDvK0OwWjBaCdIRX7UyMqRP4oLI daFG3ZCTI2KCahHKLcHYJtA9fORoNbKIKoQOHkrTcr FP2OTvRkX0GxylLgcOHhWPIbFDLWAr9+XYflqhUvZekOUyQpBCDru9EkMVd3RJ5ASDAvNOshRD0SHWSt oK2xJKewHB4GPvSlXrOwVGLNAsLeV43ehZIbQAy9I0DnIsOhDODpOwkiICSoKMqzZsItVOOzQcJhVNfo ID4+ID4+QZyaXT2PJGpiopWhUFUqAw2NHKOuJGKfDN 5lKMXaCWTaM5R7gHzkYJNXQbWpX8vybdebYE3wRTJlL536cUnxxyCdIJD6SVAzBy5CLSXoJLQ8LLIxwC SfZjseGQGPKRczTG5TdEXmIZD5pQ6mBCxxSJYfSOFoR6dESkFtyQpyAO70sGihruAzuOMuCVs+Pg0KZW 5js4OkBLu0njAyHFbwIDHbIAztZVLgNXNmLIGaRYW4 WMD8TKRDAvSxROQnUHQzPKyhIOGtFRKkrh2QVECwDWG6UDz9PVWbGXFdPIGuNGgzJXSvOUIbYqF4FNHn WKCzPC4GJyXgSYIyRMDiXSltYORcMTXhbw6ILCKtMKXbPSN5CaLlHKIsSZIuVRptHRLrQCP1Dip9QYQk WYQsTB3HRxXuPRDoOZs0OPZzTAYhISYggq9VTGCdSY GuTTQsCtEfUHVsELDzNGoiGVFgVLHaWtY2PRYgSEIrGA8GAsBySINlLCJ7DKIcLPQqGDZsrp0HKQVgQP MnCPT3SiTzRGKuGEXiQPoeYMNoRAT4LbjxCIVxUIXgXS2LLtQuWLWuWBplTTtwKXIaRLQusa1MORGcIN LwJPNuNCSmFHLlEJPqEDcjHRQdTUXzTdB5STPtZLEk XF2EPhZxJEVjWqR2EKKwALFdALZmhx3AJCErEBGdVkrvFCZqWSQcTLVoIPlcWFKnZVMxUPArEFKwQNNk BN2FTwQwUUHdWsLyZDKqBZMpBJUdub5VRIHyQCDqTMN2UxMsNRYnHBCqPApfBBYgXYF9CET8CSRrOFBg VZ5TZmUrGRUtThO6OyBcAYWfRTWgjy1TSRWmYRJlMf Y9DcZnFTAkPZCoOHukGCMkSDT9Peh8NIFgRDNcLZ6GOuUxKLIyKaI4UBmbZXFbYQLlyg4ENRTaKBOjXl z1DiBiSLGrWQTyJDtsAIJtBJD0TLqqAPOyPVDcQB6FZnRgXXSqRrf0QvtpZNOcEUCxva6HBHBkDNPhKU DxKAXoELRzZROwFGstAVEcTEM7VeBvKJQuAZIwSM6N YwUwRVMeNeyhGWgoANGvLUWqxv0ACVQtGXEiHAGsWTJhLRIlAKYbEHdeESTjOWQ7YUs0EBQyCWEgVC0W MnXaJHDjIAD5UAJtOCPaTTNlzd0OYABzTML8WZmnYHCrHPEgNEAuUWgeMNVmHXFiHXO5HSUhXVGwLO5W XuMtWTYtONVxYuviDCBeTJBxjd2VXPQlGRV4MgsdYZ NbHVZxJNUxUDpwZWDpXDJrEIC3GPJgHTApVH6IHwFsVREdNIZcMqMrLIXiJZSeme7CnVTyyFlmay5BMQ ySXv6KyXazHSInJVbaQf3ceTP1ECCtYNLPCf0EgsTdRERmAFWOBSdaNLLtTIU3MVx2BOZcEgNoRDB2SV M5WRPpFYesWzy0ZEH8CcBvUbQ4TQT1STt3BUUxIpJ7 QfozTtndIsI4CIV1HsE6EhztXTX+ZG5eRKn+Ln1Uw4DzozQ6izMpYZp9VbIwRH6TJSABO9MLZk== ID Date Data Source [id number] 06/29/2020 05:41:18 PM [facility] Name Value Range Interpretation Code Description Data Irish rce(s) Supporting Document(s) Progress Note [facility] TXQCDk8xUrARZwGf12/ZLCphFMRle1DqXXahUXo3UUpeZLYvX0QrYIU6sH4jBRO1ZEqKBpUeBpNqNPK1 lbm [file] ICAgICAgICAgICAgICAgICAgICAgICAgICAgICAgIC AgICAgICAgICAgICAgICAgICAgICAgICAgICAgICAgICAgDQogICAgICAgICAgICAgICAgICAgICAgIC AgICAgICAgICAgICAgICAgICAgICAgICAgICAgICAgICAgICAgICAgICAgICAgICAgICAgICAgICAgIC AgICAgICAgICAgICAgICAgDQogICAgICAgICAgICAg ICAgICAgICAgICAgICAgICAgICAgICAgICAgICAgICAgICAgICAgICAgICAgICAgICAgICAgICAgICAg ICAgICAgICAgICAgICAgICAgICAgICAgICAgDQogICAgICAgICAgICAgICAgICAgICAgICAgICAgICAg ICAgICAgICAgICAgICAgICAgICAgICAgICAgICAgIC AgICAgICAgICAgICAgICAgICAgICAgICAgICAgICAgICAgICAgDQogICAgICAgICAgICAgICAgICAgIC AgICAgICAgICAgICAgICAgICAgICAgICAgICAgICAgICAgICAgICAgICAgICAgICAgICAgICAgICAgIC AgICAgICAgICAgICAgICAgICAgDQogICAgICAgICAg ICAgICAgICAgICAgICAgICAgICAgICAgICAgICAgICAgICAgICAgICAgICAgICAgICAgICAgICAgICAg ICAgICAgICAgICAgICAgICAgICAgICAgICAgICAgDQogICAgICAgICAgICAgICAgICAgICAgICAgICAg ICAgICAgICAgICAgICAgICAgICAgICAgICAgICAgIC AgICAgICAgICAgICAgICAgICAgICAgICAgICAgICAgICAgICAgICAgDQogICAgICAgICAgICAgICAgIC AgICAgICAgICAgICAgICAgICAgICAgICAgICAgICAgICAgICAgICAgICAgICAgICAgICAgICAgICAgIC AgICAgICAgICAgICAgICAgICAgICAgDQogICAgICAg ICAgICAgICAgICAgICAgICAgICAgICAgICAgICAgICAgICAgICAgICAgICAgICAgICAgICAgICAgICAg ICAgICAgICAgICAgICAgICAgICAgICAgICAgICAgICAgDQogICAgICAgICAgICAgICAgICAgICAgICAg ICAgICAgICAgICAgICAgICAgICAgICAgICAgICAgIC FtNXTlDPCwUGImOMGdIXLlPRIbMJGhGMOmYLAkQPPbYEApQYDqWYUbQPEcTHx5L9ywIZSlGMDtAH8eLN d3Jz8+JKtHAfZzYOU5ofLsrD0IFQ2gv6GsBPkzMODbl6NiPXl9TX0NKIGsCIlzHE1KNYzqwg7HIQGkLY ShaCXXd7zxAuYsSTX1GZIjOetzVX3QOTUfY1kvvkHr AJAdMTWETJkgVWXTBRmxNTVHEYSnLVXeFoHjVyCvKXFqAVYlWLAJURE7YTEkNbUdPKojOP7Jl0HpiYT7 DQo+Wo8LON4re5WqWGirFjXiHY8gdj1ZAVgQEyGkC6FxvaW3IQO2OEGaGc4LFBOvEBNemSCbJUZvOWTG MiKbV9HgkW19WNFMEz8+FGjatdAnVwaVUeD0EJVsw0 UoDYp8RQ2MKUKiWCh8fTUmPWIfO3Izd4EwKq08TPYxPdsnF73fKCxjTNxaoWGpUDRXLXBbhQUdGbWbDa HfTxNzLDJ9WmMvYJ6fLQeeTJ7VBMH4UCziQZGvBTEbC9sJBtFeSUOqZZXypDgeMA0OJnEoL5AbaiLxrO AzNyAwIFINCj4+ENiukyCpNefHVhX7IJRcu1PtDDm4 PN9VYHVsAFfeNC6ZWPNkkS7gZEcsCY0XReKdVKZuOBDNDxUeH38udVXcJNu5Y2TdYiBwERDjNspzVBYy PDwvTmFtZXMgWyBdDQogID4+ID4+PHytVK5RBFgusvXcEAYuGc7SDYLcNIBpPH1lPGXyVCFkA3P4bSpl MJXJGkXqK5brdnafUB5sWJZiY269wMbqwdDmEZC1KA NtFm5YJBNuBOC5LNWenFSfBwWpUUFLSXbwTM4JrMTtYDE1uU4lBKvrPTMgLZGcO2gXIuJbrUmjTG51mV wgbnVsbCBdDQo+Ut3NKR2qp9GcBGu0qiTwGOklAYQkIEdtQGOrNGDlAZEmCFA2WSR1BPYMRfLzLUSrQV GqUJalWIOeOCUggt5NKDSdDNSgCPQ3KvYxHYIpBAHu PKvsIOQjQLHdMFM5JOFvSOFuKL3DVvVfHKNrTYMqMDvvRLNyKHOrtv5XJTMwYMNbQybiTpInJWOySTMf OHvrLHZkVQE7ULK6TUGyMDDlPO0OUxSuUWGkPVd8NABsRYBaPEFdff2MQHBkSNQiIjh9OPQdEIBeRTKt GVmnGDGiVLNvBGHbAYVgUFVvEQ8TXuAlDEMiCIV9Rd CpENNeDEGyhk8GYLBxSDGdXcW0XIFjDGOcQEZlJAxwFMDoPRJpHcv5VFKfRCWbXQ4UKuSkYKPvWPH8ID YnCPPdXZTaww0CUAAkKTGvBEk9XsXcYJUnXFWxBXguPJMcBAN6CaQ1UJKhAMJnYH6ZBnNeDBSdPGu3Ez UaQTJeUVRali9ZRUMiWSOsPGE4RySqMQWtASSkXJap TLOnOCAsCljhYTCgWAIvQN9QXiCuYRTtUhQ5TYNzNVPyOKAnjc9VMZYeANUvUkm5MZCgZXAeSFZoXUnj DPCkNNNmVWDjSXVsKDIuUW9EPkWiEMOeDoN0EFSePBBlGWTofc2WYTXdAPCjBQW0MXJxMFIoAHRiXFbv GSUkKVC6DyrwPTOlWUAmFB8FTcFnVCZjSfN0NZGfAS LpPGIbjp5OQMBsOVIrWmIzMtAaHVYrDJUwFDcpWCKpLUV8QpW6WCIxWRSrWB6GGgNnYXQwJhY9DHXaJX TeQCHesf7CGZSuQCUeCpd5RaUnLFMnJQMlTOsqKSHfBKK3Xdd5PYLfKZKcOS3GWbZdAMFdBct7PmshNB IeOYKvdf3JYAJbLGSeTUQ5QTGdUBTwOGRmPIflASHc YLY6VNP7PKCtOSDyBJ3YJkYuLIRiLmvwFVAkHIBeZJKque0IRPTyDNRwBVI9VQDqPOZhEBAgZQoqJELk PDB4PNZ2MEZrODTbNB3NJoUwFQXaKRNuECHaMSQeNWVkvm7BCUBeVYP1DDH4RkRiVNZgNTPhEZmlALZk EFYdFLEuEVNcWNXcAZ0IAjKnGNliXCBTAka8FZfqF7 b0LPI9YO5ER3Jvx0AnSegoKXNUBDqgEI7ffsXnCPCtGv0BF1eRAciyTSW5HUW8XIC3ZvdvSTXoSTV9Fz n0QbUjF3N7MGzhJr2yFKJyRUL8Aoo0ROylG7V5QKVnCQStCZEdJNSwEdenQ8PhOzHqPI0CXw2CMbT7QE X9vYGtNs9WHLZ4TEUAVkHxFU8SBEn= ID Date Data Source [id number] 06/22/2020 02:45:08 PM [facility] Name Value Range Interpretation Code Description Data Irish rce(s) Supporting Document(s) Progress Note [facility] MFIOWs4cRzFYXvSx90/MKWgyBMSgq5WqXSmfNAc6ZSfvRLOuS8SbTJR8lI5yTSG4ORzWBhXdTiTzWUNv lbm [file] UrEIt1ves7mTEQjCJvEOxbR8b1B+Q7FJGcqAVkk+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/2wxQBp8azK+AArsdAi3J8FY8Ij4wg+nNS/V6 rV9Jm2vvvcQnmOcFf4WPRZqz9oClttJZL/BDkCt3bYv6CZkK5yhFRdNokUfs4Ukdia3naOmwTrkfMaTH +JvNelxZUVCUaHCZpxdD1gR5IYb41yZQbYfz4QfM44 CpM5Prq6Uj8tstnEgV107QKYZVucdaVOvQcnQY4i8+zsYn+VBeNpDVOcm7XFSQLrxiLa5Dw7llJUNkcN uqKKHkTNikZAWCPMGSAth3YYYUPxmKBFdjRjVXEwN7yEjxGw3Wd0oLNaJ9QIYO0GZg8vPHAQuLCNAIz0 jFJEP0LOMl8q5d3IKIV1sZ6DLnxoeiV3g95ZXAVEvT d0PyDM5BLfztHKwf4nvvWLdrYM4RnPqjHw1YzmQ33+kFUerq+WEZ4ua5wrph5d3b0t7xlOizvVUZJB8p rV54Xr93t3s3aKMM3/Cj1hkUk31G73jYlbZEZt+m9BiI8gJnO4SGlBGvtvsAx2xESKtQxLgGqpAMnXvV uksmjHh4qfzW4kphJqlSkXdHDdkT06qPFkKM/eGKWr BmJ21fQ1isgMYcboEyc0PJ4AK/HoE26oIM0Qd6UAm/yFlPeOJjScXWQKy2efRB6z9gNyrDdWb+/7PRbg Jj2fLi75iC2wjzcYJ1II8bHND1KRuTtTBiJvnBUOSU5JaN14nQFFzx91f/2pSyvzez2duOsfDMAX/KI4 Gkx4rcVup1lEGiwPS5Dw9zZzw95IcXH0n8+y+Kae9p jMqJ3N6iKDFRTPLAsxrvmQwFRPxEkvbx65MFA5lOMdAZZQLrFls/k9HeLwB84ewhX5gNpywCFhp9G3D4 93lDRFA5zP+hi+9Qxtce2WG8ivCnrfARMhDYr9mS5F/gCCQzHH+eiRqk3RikOIzxKgd0bJ6XT5c00Y3T mS8510BAhnmfsFyotateSnpye6mbTgQf/8JNcYlmgf [file] A+SI1gKKh+Wu2Ud7OubrD4jrRgQYqvWKP8Hx8SQAZMI0KZLx== ID Date Data Source [id number] 06/22/2020 11:53:18 AM EST [facility] Name Value Range Interpretation Code Description Data Irish rce(s) Supporting Document(s) Leukocytes [#/volume] in Blood by Automated count 12.0 10*3/uL 4-10 [facility] [place] [facility] Erythrocytes [#/volume] in Blood by Automated count 4.64 10*6/uL 4.6- 6.1 [facility] Hemoglobin [Mass/volume] in Blood 15.0 g/dL 13.5-18 [facility] Hematocrit [Volume Fraction] of Blood by Automated count 45.4 % 4 1-53 [facility] Erythrocyte mean corpuscular volume [Entitic volume] by Auto mated count 97.7 fL 80-96 H [facility] Erythrocyte mean corpuscular hemoglobin [Entitic mass] by Automated count 32.3 pg 27-33 [facility] Erythrocyte mean corpuscular hemoglobin concentration [Mass/volume] by Autom[facility] 33.1 g[facility].0[facility] width [Ratio] by Automated count 13.8 % 11.5-14.5 [facility] Platelets [#/volume] in Blood by Automated count 286 10*3/uL 150-400 [facility] Differential cell count method - Blood [facility] Neutrophils/100 leukocytes in Blood by Automated count 70 % [facility] Lymphocytes/100 leukocytes in Blood by Automated count 16 % [facility] Monocytes/100 leukocytes in Blood by Automated count 9 % [facility] Eosinophils/100 leukocytes in Blood by Automated count 4 % [facility] Basophils/100 leukocytes in Blood by Automated count 1 % [facility] Neutrophils [#/volume] in Blood by Automated count 8.42 10*3/uL 1.8-7 .0 H [facility] Lymphocytes [#/volume] in Blood by Automated count 1.88 10*3/uL 1.2-4 .0 [facility] Monocytes [#/volume] in Blood by Automated count 1.10 10*3/uL 0-0.8 H [facility] Eosinophils [#/volume] in Blood by Automated count 0.46 10*3/uL 0-0.5 [facility] Basophils [#/volume] in Blood by Automated count 0.12 10*3/uL 0-0.2 [facility] Nucleated erythrocytes/100 leukocytes [Ratio] in Blood by Automated count 0 /100{WBCs} 0-0 [facility] ID Date Data Source [id number] 06/22/2020 12:41:07 PM [facility] Value Range Interpretation Code Description Data Irish rce(s) Supporting Document(s) Amylase [Enzymatic activity/volume] in Serum or Plasma 101 U/L 28- 103 [facility] ID Date Data Source [id number] 06/22/2020 12:41:07 PM [facility] Value Range Interpretation Code Description Data Irish rce(s) Supporting Document(s) Lipase [Enzymatic activity/volume] in Serum or Plasma 82 U/L 13-6 0 H [facility] ID Date Data Source [id number] 06/22/2020 12:41:07 PM [facility] Value Range Interpretation Code Description Data Irish rce(s) Supporting Document(s) Thyroxine (T4) free [Mass/volume] in Serum or Plasma 0.99 ng/dL 0.93- 1.70 [facility] ID Date Data Source [id number] 06/22/2020 12:41:07 PM [facility] Value Range Interpretation Code Description Data Irish rce(s) Supporting Document(s) Albumin [Mass/volume] in Serum or Plasma by Bromocresol green (BCG) dye binding method 4.0 g/dL 3.5-5.2 [facility] Bil[facility].total [Mass/volume] in Serum or Plasma 0.3 mg/dL <1.2 [facility] Calcium [Mass/volume] in Serum or Plasma 9.0 mg/dL 8.6-10.0 [facility] Chloride [Moles/volume] in Serum or Plasma 104 mmol/L 98-107 [facility] Creatinine [Mass/volume] in Serum or Plasma 1.31 mg/dL 0.70-1.20 H [facility] Glucose [Mass/volume] in Serum or Plasma 98 mg/dL 70-140 [facility] Alkaline phosphatase [Enzymatic activity/volume] in Serum or Plasma 103 U/L 40-129 [facility] Potassium [Moles/volume] in Serum or Plasma 4.3 mmol/L 3.4-5.1 [facility] Protein [Mass/volume] in Serum or Plasma 6.3 g/dL 6.4-8.3 L [facility] Sodium [Moles/volume] in Serum or Plasma 135 mmol/L 136-145 L [facility] Aspartate aminotransferase [Enzymatic activity/volume] in Serum or Plasma 14 U/L <40 [facility] Urea nitrogen [Mass/volume] in Serum or Plasma 15 mg/dL 6-20 [facility] Osmolality of Serum or Plasma by calculation 281 mosm/kg 275-300 [facility] Creatinine/Urea nitrogen [Mass Ratio] in Serum or Plasma 11 [facility] Bicarbonate [Moles/volume] in Serum 24 mmol/L 22-29 [facility] Alanine aminotransferase [Enzymatic activity/volume] in Seru m or Plasma 23 U/L <41 [facility] Anion gap 3 in Serum or Plasma 7 mmol/L 8-15 L [facility] Glomerular filtration rate/1.73 sq M pre dicted among non-blacks [Volume Rate/Area] in Serum or Plasma by Creatinine-based formula (MDRD) 61 mL/min/1.73m2 >60 [facility] Glomerular filtration rate/1.73 sq M pre dicted among blacks [Volume Rate/Area] in Serum or Plasma by Creatinine-based formula (MDRD) 70 mL/min/1.73m2 >60 [facility] ID Date Data Source [id number] 06/22/2020 12:41:07 PM EST [facility] Name Value Range Interpretation Code Description Data Irish rce(s) Supporting Document(s) Thyrotropin [Units/volume] in Serum or Plasma 2.800 u[IU]/mL 0.270-4. 200 [facility] ID Date Data Source NON WIRER PASSENGER CAR CYTOLOGY REQ FOR SERVI 06/21/2020 12:00:00 AM EST eC W1 ([facility]) Name Value Range Interpretation Code Description Data Irish rce(s) Supporting Document(s) URINE eCW1 ([facility]) ID Date Data Source [id number] 06/07/2020 02:13:13 PM EST [facility] Name Value Range Interpretation Code Description Data Irish rce(s) Supporting Document(s) Progress Note [facility] FIGRNg8aIcDFZyQy36/BEPjtPOEam1NbWNmyRPy3TNmxFQDhS0WsASH0oE7kHPA3QMaOElWxNvVhFYL4 lbm [file] ICAgICAgICAgICAgICAgICAgICAgICAgICAgICAgICAgICAgICAgICAgICAgICAgICAgICAgICAgICAg ICAgICAgICAgICAgICAgICAgICAgICAgICANCiAgICAgICAgICAgICAgICAgICAgICAgICAgICAgICAg ICAgICAgICAgICAgICAgICAgICAgICAgICAgICAgIC AgICAgICAgICAgICAgICAgICAgICAgICAgICAgICAgICAgICANCiAgICAgICAgICAgICAgICAgICAgIC AgICAgICAgICAgICAgICAgICAgICAgICAgICAgICAgICAgICAgICAgICAgICAgICAgICAgICAgICAgIC AgICAgICAgICAgICAgICAgICANCiAgICAgICAgICAg ICAgICAgICAgICAgICAgICAgICAgICAgICAgICAgICAgICAgICAgICAgICAgICAgICAgICAgICAgICAg ICAgICAgICAgICAgICAgICAgICAgICAgICAgICANCiAgICAgICAgICAgICAgICAgICAgICAgICAgICAg ICAgICAgICAgICAgICAgICAgICAgICAgICAgICAgIC AgICAgICAgICAgICAgICAgICAgICAgICAgICAgICAgICAgICAgICANCiAgICAgICAgICAgICAgICAgIC AgICAgICAgICAgICAgICAgICAgICAgICAgICAgICAgICAgICAgICAgICAgICAgICAgICAgICAgICAgIC AgICAgICAgICAgICAgICAgICAgICANCiAgICAgICAg ICAgICAgICAgICAgICAgICAgICAgICAgICAgICAgICAgICAgICAgICAgICAgICAgICAgICAgICAgICAg ICAgICAgICAgICAgICAgICAgICAgICAgICAgICAgICANCiAgICAgICAgICAgICAgICAgICAgICAgICAg ICAgICAgICAgICAgICAgICAgICAgICAgICAgICAgIC AgICAgICAgICAgICAgICAgICAgICAgICAgICAgICAgICAgICAgICAgICANCiAgICAgICAgICAgICAgIC AgICAgICAgICAgICAgICAgICAgICAgICAgICAgICAgICAgICAgICAgICAgICAgICAgICAgICAgICAgIC AgICAgICAgICAgICAgICAgICAgICAgICANCiAgICAg ICAgICAgICAgICAgICAgICAgICAgICAgICAgICAgICAgICAgICAgICAgICAgICAgICAgICAgICAgICAg ICAgICAgICAgICAgICAgICAgICAgICAgICAgICAgICAgICANCjw/qUQhN9wlgSKxjhO5H6mgPp3QBe7C MP9eb3UrHVNjCOwdvyMgMlsPNeAbTTToNqxYKfp4YE tqIE2ZrAYlE1SrJ3BpDPatIQ1JGPUtWKBhkDQfJPGkMIWtOoG4GBYeHKygCT5RwOVkNIgaMYPsIYKtLl OoOILaUOHvOUVhSRCwKMMGLLDcSSRfQgChQDFvSRLmEY4YWJZvD139mgRaRw0GEg1MRlJkTB6anu7IVy RzLEKsYkbEByb8OPgzGZ8QdXXuiAByCxPfYIVDDpUs V7sjv4WgMmZkIGZJBIplTP8Dd9EssUBvXFa+Ie2YRV3us0OrVAjcKwXySK7uyn9KVRcSQtZjM3LrzZdq SMQsn5yyJXNnJK2dkCVnXZV2HLZowATaPXFGOIP3GJRcMTrbPQMEDNB8RAHyLnBnWxVcIzMqSKE6HVNr PZ5sXAseNP5EHNU8GSbsQFRbCDWtE3qKSlQgHNHjDT UgiEdtTO0DLwNkG1CibdGvbWEpFUJuGMWTVh2+VTiogfQkIbsZUpB1QFApn4GjDGb5YZ0JJQTmAIcbJE 3ELYIllL6lZTrdRY4UJmIaOmPmRGBCQoDnA35hxMVkEVh4A0SmXyWaOUCxTveuPIQiBShvCbPlLBPeZj BdDQogID4+ID4+VHngQE3IBLuphiLsZVAwSm9CEKBe LTWoOE3pVGZiBILaY3R4cAhpYIPAUkMkR8xrzcneSK6lJXUuB535yDbucfNeRMF8ADCzNa7IPUAeNCQ4 ONMgzZSlQkZvLXAPQIogXR1NoPUbOCA3qS4qDNcpRISdVODqL3zHBtLjrLepTH33tEqiquJgkPEtWOq+ Fa0YKV5yw8JoKTk8tfItXEnuNWB0SPotJYCiYLThKB SaLND6CBW7XZISGtVhITFoMFWoFHqnJGBzPOEfdc5DICZjVKH1KJVhBNKcTPBkKAOaCGyzTSHpGFAyXb S6QVDuVXUrVP8PLeKiZDPhTHKzUPmrQJAaVAVuxr7YLHYlRLHvEZXqLGEhFQLsLNVnRKgkTZNpUPR2QJ A3GNKjSTPbGE5VQzGrALEjTQicTFClVLTzSARsbk0Q RVKfIXFcZSC1XZZgPWWoLPJoUWwoFQGgFRUaHIRwNIGdJJNwUP5EEdFjQBXcKFU9NJJfSFHkOWFydo9R GHHlIMDzHKSeZTEpLSZqMWPwGDwpGOTuHCG8JeBoTVPiHQAgSP2CEuXrZIYqLYd0BeimQQRkXAPnvj5H HNVgUGDlJUk4TqZsTASpWRLyZNwgPLVgWXEfWQl6SX XaWUVkYW4FTpOsIWAzNjE2YLVoBSDpDZKszm2JBGYrTPQgJbw3UNHeLSLnIUCdDEccHUUbDOUnOLYkBB AzDABeOY8NYhUpHAZpQwXyDAVeTZTxANPchb7EMTSoDYIlEYKiGDVoXLSaZCFyYSxrDKOzFCK8NqC0HA LuLIOwJW4PUyUdSIXgUzD5JPLzNJQzNZPgos5QSTIj VTZyHatuVHIrREEsBXPyGAerTAHgBHX9FgH8EQHzVCAyLJ6WViSuMSReJlu2QFahHPOeKMNxku5CYYTa QKOsVuycQBWgHQSaEVAvEIdtRCXdTPU9OYD9SSNkXWUcDS3HGsBoJTFdGbw0EGhaIDSrSJGlww2VGMIh YRWjFTp3WgYxQIFaUZXhBEoyIICzTFV6FZF4ICLfSK LxLA7NLvAxPDYuCQBgKJafDKYxPJMcxz2VXKOjURX7PBKrAJNmODBgKBQqOJyrAUAsIEDpBOapLCRiVE DxLO7ZOfCpYTKyPCM0JYDeQNJaLLPvsr4LEIHiVHA7SnR9OqTkPJVpDIZvBJoxGKBeHDLhBJI7CGVdBQ OtRV9NHnPtHISqVRF7IVOxGJZxGPZbiq8XfHUczXft kj6ZPSrZNw3PmErgSSG7NLxiZx2tvCJjZpUdWZCVXv6McnAjIJSpWTEFYArxVDOdNAfyCpR7EXI3YGmv LAUhASEgRgbuKLB9HPJwTFR3HPJiAmK4BPRzPXUsFxS4G4A3CEZtDoDzZWH8QPGyDDBiQvCdOsJ+IF0g DQo+Qu4Zz0YeucT2vePfZWs9Lzy7PQ5BVXHJO9UFAy== ID Date Data Source [id number] 06/03/2020 08:05:54 PM [facility] Name Value Range Interpretation Code Description Data Irish rce(s) Supporting Document(s) Progress Note [facility] QUKLRx0yPbRQVjWt33/RZDpbEJMut6GxNAyyIUl7TPsgJEVeW0BnJEQ6yL6vWCY2IGcHBzUaZrIyQNPx lbm [file] ICAgICAgICAgICAgICAgICAgICAgICAgICAgICAgIC TdEGVqBVFdSXXaHOTsTPGiSUKoKCUgEZBxOEQtSMTjMLMhRQHgBNIdWSEfYOLwWDSrOA4YKTUzOUPvWX AgICAgICAgICAgICAgICAgICAgICAgICAgICAgICAgICAgICAgICAgICAgICAgICAgICAgICAgICAgIC AgICAgICAgICAgICAgICAgICAgICAgICAgICAgICAg JR3UJCJxVSPtNTDxANZaCMJzVJGlRMPyIVJwQAHiGIBaGPCeYMZvSKDjYOGiOZBuKRGuPADlUKSpBJJy EPGoDVAxGIWsQFGwGULcYJKsWVMnSXXuDKLwGBXhSOCfZQKdRPYoKSIwMT0LWZWiYBCkUPJpQCXbJHUa ICAgICAgICAgICAgICAgICAgICAgICAgICAgICAgIC AwHXZdNLWaKYOfAKUxYFQcSUNzRPRmCMJxSDZfIWAzKFYcWOUwPDIpTWRsVCZsRBOzEOLrEV5MJJByAZ AgICAgICAgICAgICAgICAgICAgICAgICAgICAgICAgICAgICAgICAgICAgICAgICAgICAgICAgICAgIC AgICAgICAgICAgICAgICAgICAgICAgICAgICAgICAg XJAmTR2MAZXmFTCrICMlCKDqZMNsMEAaXRTcTNGzCRRaCJMpOAWgQEXxTXXtOLEdBPRcGKEoAJYfLHWl TTSwOSMnGFKlUYAoCBRnNLUvUXVwFPBhNOSmAIUaMUQnXWOlCDPuHMUdJCMaPP5CBZLfDUFqBDAmHQLq ICAgICAgICAgICAgICAgICAgICAgICAgICAgICAgIC YsEPTaCNUsXSKaVVToFHXmKGRlPEXkEUAbHCDbWURcYRGtCFYnHLTkLINlAVQcWIFaXDLiJCFuAC8CHQ AgICAgICAgICAgICAgICAgICAgICAgICAgICAgICAgICAgICAgICAgICAgICAgICAgICAgICAgICAgIC AgICAgICAgICAgICAgICAgICAgICAgICAgICAgICAg NQDyGBLdIH4TRHFmIHLuLXAjPMUxJVYzXWPhMXIdDFLjUVCpIETvHLXbKUKoQCOaKYXuRAGdMVIzEHWq TWVlEGNoYTOdIUFvMHMlCEEsMOBnRXGgODVhEGLyAWFpWCFdXGPfJKNzKNWlGYRaIX7CUCWoDIEdGZLt ICAgICAgICAgICAgICAgICAgICAgICAgICAgICAgIC AgICAgICAgICAgICAgICAgICAgICAgICAgICAgICAgICAgICAgICAgICAgICAgICAgICAgICAgICAgIA 8FSX32cEIkr6B5QLKcXW4dpdg/Fm4ORHfeszRlzCOoQP5NMrPgCB7clm8ERmKnZY8fre1YVYqJVkZgN1 Q0jTUiFEYmTPHSGkOuW03lFJvrOv68KUmzKJGxYtTf PIk8Oo8OLbNwD9pvDYJvNlK4RBWxPyJuILvcOH5Fu8CceRGiDVi+Ra7JPO6ha2FgVKwsKARfZE0okk5J DOySXjDwV8AqqfN6SDMpRRHqQk7KZWElALPuqQHjOGJhYLMKCrSrC6HmeC49SKYSAc9+DQplbmRvYmoN NaEpLSGcs2IuOFx5WE1MOHAhNQl5jKRwCFJyN2Ijm6 YgBf48CDPeQcjsGPqedkDqVqSrxoY9UWACVEJzgRUbQj5vIM6iOSCcKXBaRpO2ZRCLBG8DUUEgFBXgnE SyCTNwJKJEKN9WLYwcVGU5VHGncaNbdKRtCDxhGK9WBZWgihMxDMiiTWLYNEv+Vx4LIW9lz1VvCEwxBW MeVW1mnj4MINrTJxSjQ5B0cBWaH8W6OZsoFd7ZNRUg DENnWDezMTSPODdtQB1ITM4oqcR8IR2VeGWpQLUjTQLssSNhFEt0V66nlNErHFyyEW6FDHY+Zeferino+Pg0K QGRaMYNnNTAmWzKvSVDEKoXnN9CrH8IPh9VyV2CfYT97fGywlwAqTUuzWK8MSS9nGNLwDAQXZD0YtZKr wC2zviTbMBOgSGZFAsObQ84dhJBqSAZaGWP4IOJnKi 2THLQhI7FlyfJniOgrglJyPOUoRWFCMN6YAQesvsJmiJSycVhlUX17kPagHD5TEz2YAcIkRX2hrq4OjR CfZo2PFQTiQn7GAPVpYEVtYWKkQAC7SCHkToJgRTrzMBVqLOXqKBN6ZEUgPFAfRJ5UGsQgZDZtGNm2Uf BlTSMaIMBszf9BIEFbFZRfZND5MUTbZJYbMIRbRLvv BUZjJIIrZLV1OYHdJAEkHG8EMrBvUFLaETR7ZTAkCMIwUCJxuv6NVFJeKJZzDeJ0BdWvWUXlZRVyVUzz JXPzPCPaPvK2IYUzAYOjDK0ONuQtYHXjVOS3AQUbLCYeOQWmit2VTPAcHJPtAgl3JEWvDNPnSLGtDDmx KWTqJDH6VIS9VNOnDZTuAS2QOfLqBKGmWRGvWRHdBX FnZLNzay0BJDFbRRKlPBDmUHKhCQZjLCVeFYpeISAgPCQ4JjsdKWDjLUQrPO5JFqSxXFHmNAijBXhwNU EzUSYwys1IJQBuCGSkNwWyOAJoVSCfCXVhOSivXQHkAVV4MBG2AIDgUOXwZP3PKyEwLBXqUFh3FNGtQF PuLPRjer5TPXYtBXEbFHZcWFTwRENjQPGgWPmxBABp EHH1XYFdKHPcRAFkNR9PHxBeGDYdCZo4ISNuVVZyMGSnjo7PBHDdKSZyKMO3BDLgTJKyWYItQId2igIq gGJwGKs4MV8DK5VtbmFhMrKRFt1Qn130IJSpYPVgGd5XX1czFu0cBRVkWJSQNd2BBKs1TIBvTqk3EhW0 QlC1JbifMjgdSQphMfXdDhQ3PhDfJwP+RAd3QDQjTY ikKxRrIIP8XKMcDhJ0HDOtBYJnUQY3SPAtKh1dOUAOIn6+QDhsaHLojNxrBTYJWuM8GVL5RRstICFDSb 0K ID Date Data Source [id number] 06/01/2020 02:04:49 PM [facility] Name Value Range Interpretation Code Description Data Irish rce(s) Supporting Document(s) Leukocytes [#/volume] in Blood by Automated count 11.8 10*3/uL 4-10 H [facility] Erythrocytes [#/volume] in Blood by Automated count 4.62 10*6/uL 4.6- 6.1 [facility] Hemoglobin [Mass/volume] in Blood 15.2 g/dL 13.5-18 [facility] Hematocrit [Volume Fraction] of Blood by Automated count 45.3 % 4 1-53 [facility] Erythrocyte mean corpuscular volume [Entitic volume] by Auto mated count 98.1 fL 80-96 H [facility] Erythrocyte mean corpuscular hemoglobin [Entitic mass] by Automated count 33.0 pg 27-33 [facility] Erythrocyte mean corpuscular hemoglobin concentration [Mass/volume] by Automated count 33.6 g/dL 32.0-36.[facility] width [Ratio] by Automated count 13.6 % 11.5-14.5 [facility] Platelets [#/volume] in Blood by Automated count 278 10*3/uL 150-400 [facility] Differential cell count method - Blood [facility] Neutrophils/100 leukocytes in Blood by Automated count 70 % [facility] Lymphocytes/100 leukocytes in Blood by Automated count 15 % [facility] Monocytes/100 leukocytes in Blood by Automated count 10 % [facility] Eosinophils/100 leukocytes in Blood by Automated count 4 % [facility] Basophils/100 leukocytes in Blood by Automated count 1 % [facility] Neutrophils [#/volume] in Blood by Automated count 8.30 10*3/uL 1.8-7 .0 H [facility] Lymphocytes [#/volume] in Blood by Automated count 1.82 10*3/uL 1.2-4 .0 [facility] Monocytes [#/volume] in Blood by Automated count 1.12 10*3/uL 0-0.8 H [facility] Eosinophils [#/volume] in Blood by Automated count 0.48 10*3/uL 0-0.5 [facility] Basophils [#/volume] in Blood by Automated count 0.09 10*3/uL 0-0.2 [facility] Nucleated erythrocytes/100 leukocytes [Ratio] in Blood by Automated count 0 /100{WBCs} 0-0 [facility] ID Date Data Source [id number] 06/01/2020 02:58:59 PM [facility] Name Value Range Interpretation Code Description Data Irish rce(s) Supporting Document(s) Amylase [Enzymatic activity/volume] in Serum or Plasma 61 U/L 28- 103 [facility] ID Date Data Source [id number] 06/01/2020 02:58:59 PM [facility] Name Value Range Interpretation Code Description Data Irish rce(s) Supporting Document(s) Lipase [Enzymatic activity/volume] in Serum or Plasma 25 U/L 13-6 0 [facility] ID Date Data Source [id number] 06/01/2020 02:58:59 PM [facility] Value Range Interpretation Code Description Data Irish rce(s) Supporting Document(s) Albumin [Mass/volume] in Serum or Plasma by Bromocresol green (BCG) dye binding method 4.1 g/dL 3.5-5.2 [facility] Bil[facility].total [Mass/volume] in Serum or Plasma 0.2 mg/dL <1.2 [facility] Calcium [Mass/volume] in Serum or Plasma 9.4 mg/dL 8.6-10.0 [facility] Chloride [Moles/volume] in Serum or Plasma 107 mmol/L 98-107 [facility] Creatinine [Mass/volume] in Serum or Plasma 1.37 mg/dL 0.70-1.20 H [facility] Glucose [Mass/volume] in Serum or Plasma 78 mg/dL 70-140 [facility] Alkaline phosphatase [Enzymatic activity/volume] in Serum or Plasma 106 U/L 40-129 [facility] Potassium [Moles/volume] in Serum or Plasma 4.3 mmol/L 3.4-5.1 [facility] Protein [Mass/volume] in Serum or Plasma 6.8 g/dL 6.4-8.3 [facility] Sodium [Moles/volume] in Serum or Plasma 142 mmol/L 136-145 [facility] Aspartate aminotransferase [Enzymatic activity/volume] in Serum or Plasma 13 U/L <40 [facility] Urea nitrogen [Mass/volume] in Serum or Plasma 18 mg/dL 6-20 [facility] Osmolality of Serum or Plasma by calculation 295 mosm/kg 275-300 [facility] Creatinine/Urea nitrogen [Mass Ratio] in Serum or Plasma 13 [facility] Bicarbonate [Moles/volume] in Serum 24 mmol/L 22-29 [facility] Alanine aminotransferase [Enzymatic activity/volume] in Seru m or Plasma 19 U/L <41 [facility] Anion gap 3 in Serum or Plasma 11 mmol/L 8-15 [facility] Glomerular filtration rate/1.73 sq M pre dicted among non-blacks [Volume Rate/Area] in Serum or Plasma by Creatinine-based formula (MDRD) 57 mL/min/1.73m2 >60 L [facility] Glomerular filtration rate/1.73 sq M pre dicted among blacks [Volume Rate/Area] in Serum or Plasma by Creatinine-based formula (MDRD) 67 mL/min/1.73m2 >60 [facility] ID Date Data Source [id number] 06/01/2020 02:58:59 PM [facility] Name Value Range Interpretation Code Description Data Irish rce(s) Supporting Document(s) Thyroxine (T4) free [Mass/volume] in Serum or Plasma 1.02 ng/dL 0.93- 1.70 [facility] ID Date Data Source [id number] 06/01/2020 02:58:59 PM [facility] Name Value Range Interpretation Code Description Data Irish rce(s) Supporting Document(s) Thyrotropin [Units/volume] in Serum or Plasma 3.250 u[IU]/mL 0.270-4. 200 [facility] ID Date Data Source [id number] 05/17/2020 09:07:03 AM EST [facility] Name Value Range Interpretation Code Description Data Irish rce(s) Supporting Document(s) Progress Note [facility] OOBKCk3pHhVUJzFv71/OWJglNRSil0QtRAdvJIp3SMgaIIXuE7GmEGH9vM2lLQZ6PClRYmTzCcIoUrN8 lbm [file] /MnQLDGooK3NGOuyl37zk2Gweh1MIpZDeKFTol6pYgBYzEExx5aV0loTo5C3kQiTkuary4fnJ7Fa+pulmonary physician 7LIwVTeNA7teiLBFOml0s63l7leZFpfccIyBQzFt76 iaUgaOIJReniW5ilz+qViWewVCouODSzEPUSTI4CdLp0JLAeW7FbKeDiR3Z3SQeAdOrJ1JkQGhtqNkXL 0oPAKEi/a1lHmQEgxb28vfUjkF2cMG0ApN+T5cyT+0HawQf2EnYK9eDJOzYW9nnsp/v9wZNggCkGymzT hdImN6jzWc6iVJ+jHwvdQIV15sn0tS5uhSlOum9KeI 1L9Bh/SgGSd+S3eMOALut7gvGljputk4pg8KkJVKw//FQgDjmVkz2C9ddoj6Gx/QBudc5tjyz9e2DBpl G3cdrZ5KCqoJlqo7wOF45CXiGp9pWICHYFVnfq9Pgc+bur4HHD+kDeH3F4jurB4yPHxlZ1/mKhZ0fY5u jwYbP5c4LyHRTpCXDeCw9JjBKtonsrAxoiW+RQfxbT thyEkBrptUEGcLtToPAk8No0RGOUfFV6eHUM7BDeD9xtzb6B8zdhmvO5v+XfsETQKicRh3jQ8Ca7DgI3 oQk8jpyKo9OfXmxMuQ9MPl0LgstiaMMkJFvPVG28XLe/3H8uutc8NbuQLtgdhgpouU75Q6LncaKXN9w1 LWzWsBAM9Cjy4B1T+o8gxe/C1bGmUwG0fMll9ZVwOU UWcIHrxZ7uvyXYeO+kaJllw5IkGtMAJspLItGQ33hhKBYp9a6QRRyyUjmbXDb4VVJLOvM2D+Gypsy/qVbc [file] VLUHQr9Q ID Date Data Source [id number] 05/16/2020 12:26:10 PM [facility] Name Value Range Interpretation Code Description Data Irish rce(s) Supporting Document(s) Progress Note [facility] BLLSJc7gRsWBGxUt00/TPJjiEDUsw0NfYQcwXNr4CWovEMAwB4BqKOL3nX6dMKE9ZPnUYbLqQsGeIfZ2 lbm [file] ICAgICAgICAgICAgICAgICAgICAgICAgICAgICAgIC KyRJReTEOdGJJxDMGpOSSgIGWpBISqNYDjBPGrWDDxCQUkLFSdCNXsWNJeGEZkOAMqHA3OCEWwOMJhEY AgICAgICAgICAgICAgICAgICAgICAgICAgICAgICAgICAgICAgICAgICAgICAgICAgICAgICAgICAgIC AgICAgICAgICAgICAgICAgICAgICAgICAgICAgICAg BC1BQLJuVJYnRSCkYIVpZKXpKKQpTVKvTZDrIMOkETIlERBoJPRyFEHdTRRaRCFqJNHvKGGyBKIgHSEw AAPfIUAnBKTfLBNcDAJvUDXxCMYeBTCmYOLkOFKeFTPoWQLeCCXgHSYxAA4WZILlZOPpYLWnPMLmSJCz ICAgICAgICAgICAgICAgICAgICAgICAgICAgICAgIC IdZUGkMXMaIIKjSURwOIUvQMTfKRBvABUzGLYsMXRrSYAkYBPmMXWlRGDuMZVaNEMiFAIeHG0QUXCnCN AgICAgICAgICAgICAgICAgICAgICAgICAgICAgICAgICAgICAgICAgICAgICAgICAgICAgICAgICAgIC AgICAgICAgICAgICAgICAgICAgICAgICAgICAgICAg BZCtGK7WHVCuTSGkGHFfGUOpEYUtSNHoCUOrXBYsJMFhNHTmBBCsGSGrSURhTBIkPCEaCCVrLNEsYXYh APXpDFEhPMRjODZuZBUiTEWdMLRhRXGdAXNiPCClJLZkYOIpGBUbIGVyNHWmEU7BDSUoMDCfAQGlYHCf ICAgICAgICAgICAgICAgICAgICAgICAgICAgICAgIC NsIFWhTUBvVTKiIBNiUOGbMMOhJRXeZUKyADGmGRTyIMGqHBHrCTFsEGFyYGKdZQHpXKJmEUNkIP5HSL AgICAgICAgICAgICAgICAgICAgICAgICAgICAgICAgICAgICAgICAgICAgICAgICAgICAgICAgICAgIC AgICAgICAgICAgICAgICAgICAgICAgICAgICAgICAg LNKhWQEwAD5FEVWcWSClDUYjHLGkGWZgFZTdCLXaPSGlMRYbIOLxKTJoVHDmTXZrIKIvPFWuQMHqWAHf KFRjLIYlBVQoQZPnINOrBKUcJNBtIZZhIDQbIVWyIDPzDKYtKIVbOOPwHPStWGRuBZ3UPTOnWGMaTUOr ICAgICAgICAgICAgICAgICAgICAgICAgICAgICAgIC AgICAgICAgICAgICAgICAgICAgICAgICAgICAgICAgICAgICAgICAgICAgICAgICAgICAgICAgICAgIA 2SKT43tOVae3K4OFJiWA6xoqs/Ae2YUUqkjnDglSEuYM3SCmAiPK4gcb7SBmGiWV5qtw1VHGtDYsSfD6 F5jXZpVTSaTRMJDgIwI35xDVwaYd96UWqpDJCdHrCc IMi3Mf7YNaDkI9umZMJjDbS7RXYuTmVgGUciEE4Qw5VqsJHkFUu+Qt9QOF6vw4YnMQlrZBTnZE8rui8F HZhKYrPrL4IttbG0ZJNnIFAuVg2JLCHgXWRoyCGmOEGcFKVTSeIaL7AvgH13BKVELf6+DQplbmRvYmoN AePbZKObh1JrTXw9HQ5KLXGlUPp7wREaMYBmL8Edu6 PnTh75KHTiDnpgASgzqeTdEmDjjwT5IDOEUTYnnQAeXg9cMQ5oAHVxXGMvPxV8HJGZTO6TCQLySWXbjB IzSKRfXMAADM5UGPbxDIU3UHMdgjLbpYAkHOxvFQ3KCYKrguGrVSfwXPKSRNq+Fs3PRF4ak7TgWWaxHN RgZL1ags9KONcCJuLeN9M7eYQjX6M8IWibNl9INDWp LIDvAZauTOFRJTpdCT8FJG8ldkU8NK3QcYGxNRJjFJBjmWEcVZp4G39voTMpHEcwYU4XLBF+Zeferino+Pg0K MTRnJSMoROXaCpSyYJSMYtPtK2ScR9DKj4ZhG3IwJG36bTbtzpYuNZlyMS0CDT6iPDDfEOOKRX0CcMXq bL7tpnLgDFWyKHNXOwRvK21gjVZeKKYlXBI1ZTVqKg 7VLXHwY5TynoIvwJtdohCzQITyKKYGKT7ZXOklghMmtDLjhZatSJ02qIofHS9ZIp6IAwPhQF3qed0TmN IbLt8DFMWkKc9IFJYzKZVqOYHvZPC6NTHlBiJcRBbqLWDfPJHsBBM9MEPxLGKqIM2DUwZiCYMtIPg7Zp GgSIQdAZZfgf8NJLIoWXIqZCB9YOWoLPBvYCJnYVwo LLIuAVXeKYV7KXXpYJBxCR3UEoGqYILaAKK6ITGfMDXqAVDluu1ONTInSKTwDoL0RiFbRAGmYFNkAWgw CQFiNBZbNhC6RTLoMDQyFO9FIdYsHUNqRJL9SJAfCEUtYUOpuz8DTBPwJIQmHfq0KNRsQHJyKALiLOor KBIzHKP0JEK5INZqTIMuFS7ZAyEjUZQoPGFdGESrWE ZnLVTkjy0LODMaYGAgLUNgMNWsTVEhFLYoOAuaTDCkCNW0IxoqNGReBRXlFO2DLbEuRHNoFPglSHhzTM IyHTAuuy7QMMDyTQEePePaPLSxWVLkVVKuUQacPRBdHDA1YGJ5QLUaTNPrNR9OJuClGJSmDLt2NTVjWO ChENQydx4SQTJeWRSeIDZfQBXqTHRqKPLxPZfuAEAe CQU3YQDaTRQvRTFdUS6IYfGeCBAkKIz8PQOdUYLdHUXncw5MVUXxMDGiYYJ0AFVyZDEvVDUbSRu0ccGq eUOaYHm5MR4SB3PqtgAkGfUVKj1Uw062AMXyIPRiKp9PR0nlGx5vRVIbFNRTSk6NLKk6ZKbgU7O7XaZf HUVbUSAqFjX0JzTpC1RrNQFvSMKsCcP+IDxkOWRjZD ydXtT3QcSlOrRkBAdgIhL8EQGbVyM2ReBcYm0cLZYCJi2+NOrxzQVbmVwhNUTZEiE3OJW0IEqnXHXPAd 0K ID Date Data Source [id number] 05/13/2020 01:26:58 PM [facility] Name Value Range Interpretation Code Description Data Irish rce(s) Supporting Document(s) Leukocytes [#/volume] in Blood by Automated count 9.3 10*3/uL 4-10 [facility] Erythrocytes [#/volume] in Blood by Automated count 4.45 10*6/uL 4.6- 6.1 L [facility] Hemoglobin [Mass/volume] in Blood 14.7 g/dL 13.5-18 [facility] Hematocrit [Volume Fraction] of Blood by Automated count 44.1 % 4 1-53 [facility] Erythrocyte mean corpuscular volume [Entitic volume] by Auto mated count 99.1 fL 80-96 H [facility] Erythrocyte mean corpuscular hemoglobin [Entitic mass] by Automated count 33.1 pg 27-33 H [facility] Erythrocyte mean corpuscular hemoglobin concentration [Mass/volume] by [facility] 33[facility]4 [facility] width [Ratio] by Automated count 13.8 % 11.5-14.5 [facility] Platelets [#/volume] in Blood by Automated count 297 10*3/uL 150-400 [facility] Differential cell count method - Blood [facility] Neutrophils/100 leukocytes in Blood by Automated count 62 % [facility] Lymphocytes/100 leukocytes in Blood by Automated count 20 % [facility] Monocytes/100 leukocytes in Blood by Automated count 10 % [facility] Eosinophils/100 leukocytes in Blood by Automated count 7 % [facility] Basophils/100 leukocytes in Blood by Automated count 1 % [facility] Neutrophils [#/volume] in Blood by Automated count 5.70 10*3/uL 1.8-7 .0 [facility] Lymphocytes [#/volume] in Blood by Automated count 1.89 10*3/uL 1.2-4 .0 [facility] Monocytes [#/volume] in Blood by Automated count 0.97 10*3/uL 0-0.8 H [facility] Eosinophils [#/volume] in Blood by Automated count 0.64 10*3/uL 0-0.5 H [facility] Basophils [#/volume] in Blood by Automated count 0.10 10*3/uL 0-0.2 [facility] Nucleated erythrocytes/100 leukocytes [Ratio] in Blood by Automated count 0 /100{WBCs} 0-0 [facility] ID Date Data Source [id number] 05/13/2020 02:05:16 PM [facility] Name Value Range Interpretation Code Description Data Irish rce(s) Supporting Document(s) Amylase [Enzymatic activity/volume] in Serum or Plasma 67 U/L 28- 103 [facility] ID Date Data Source [id number] 05/13/2020 02:05:16 PM [facility] Name Value Range Interpretation Code Description Data Irish rce(s) Supporting Document(s) Lipase [Enzymatic activity/volume] in Serum or Plasma 21 U/L 13-6 0 [facility] ID Date Data Source [id number] 05/13/2020 02:05:16 PM [facility] Name Value Range Interpretation Code Description Data Irish rce(s) Supporting Document(s) Albumin [Mass/volume] in Serum or Plasma by Bromocresol green (BCG) dye binding method 4.1 g[facility].5[facility] [Mass/volume] in Serum or Plasma 0.3 mg/dL <1.2 [facility] Calcium [Mass/volume] in Serum or Plasma 9.2 mg/dL 8.6-10.0 [facility] Chloride [Moles/volume] in Serum or Plasma 108 mmol/L 98-107 H [facility] Creatinine [Mass/volume] in Serum or Plasma 1.23 mg/dL 0.70-1.20 H [facility] Glucose [Mass/volume] in Serum or Plasma 102 mg/dL 70-140 [facility] Alkaline phosphatase [Enzymatic activity/volume] in Serum or Plasma 108 U/L 40-129 [facility] Potassium [Moles/volume] in Serum or Plasma 4.4 mmol/L 3.4-5.1 [facility] Protein [Mass/volume] in Serum or Plasma 6.5 g/dL 6.4-8.3 [facility] Sodium [Moles/volume] in Serum or Plasma 141 mmol/L 136-145 [facility] Aspartate aminotransferase [Enzymatic activity/volume] in Serum or Plasma 16 U/L <40 [facility] Urea nitrogen [Mass/volume] in Serum or Plasma 19 mg/dL 6-20 [facility] Osmolality of Serum or Plasma by calculation 295 mosm/kg 275-300 [facility] Creatinine/Urea nitrogen [Mass Ratio] in Serum or Plasma 16 [facility] Bicarbonate [Moles/volume] in Serum 24 mmol/L 22-29 [facility] Alanine aminotransferase [Enzymatic activity/volume] in Seru m or Plasma 19 U/L <41 [facility] Anion gap 3 in Serum or Plasma 10 mmol/L 8-15 [facility] Glomerular filtration rate/1.73 sq M pre dicted among non-blacks [Volume Rate/Area] in Serum or Plasma by Creatinine-based formula (MDRD) 65 mL/min/1.73m2 >60 [facility] Glomerular filtration rate/1.73 sq M pre dicted among blacks [Volume Rate/Area] in Serum or Plasma by Creatinine-based formula (MDRD) 76 mL/min/1.73m2 >60 [facility] ID Date Data Source [id number] 05/13/2020 02:05:16 PM [facility] Name Value Range Interpretation Code Description Data Irish rce(s) Supporting Document(s) Thyroxine (T4) free [Mass/volume] in Serum or Plasma 0.99 ng/dL 0.93- 1.70 [facility] ID Date Data Source [id number] 05/13/2020 02:05:16 PM [facility] Name Value Range Interpretation Code Description Data Irish rce(s) Supporting Document(s) Thyrotropin [Units/volume] in Serum or Plasma 3.110 u[IU]/mL 0.270-4. 200 [facility] ID Date Data Source [id number] 05/16/2020 04:28:00 PM [facility] CYTOPATHOLOGY REPORTName: RYAN CHUNGMRN: [id number] Number: [id number] Date: 05/13/2020 12:57Received Date: 05/13/2020 15:58Physician(s): JOHN MOODY MD STECKEL, ALYSSA M, PA Specimen(s) ReceivedA: URINE, VOIDEDClinical History:Bladder cancerDiagnosisURINE, VOIDED: NEGATIVE FOR HIGH-GRADE UROTHELIAL CARCINOMAComment/ld/calReviewing Cytotech: BREANA Hall (ASCP)Oz Guo M.D.Electronically Signed By Olesya Guerra M.D. 05/16/2020 16:28:45The attending pathologist named above attests that he/she has personallyreviewed the relevant preparation(s) for the specimen(s) and rendered thefinal diagnosis. Microscopic DescriptionThe specimen is composed of benign degenerative urothelial cells with redblood cells and debris in the background./ld Gross Ejjfzdzpanb08 ml cloudy yellow fluid received: 1 Thin- layer Pap stained slideprepared by filter preparation. This report may include one or more immunohistochemical stain results thatuse analyte specific reagents. All positive and negative controls havebeen reviewed by the attending pathologist and are satisfactory. The testswere developed and their performance characteristics determined by [facility] Pathololgy department. They have not been cleared or approved by [place] Food and Drug Administration. The FDA has determined that suchclearance or approval is not necessary. Name Value Range Interpretation Code Description Data Irish rce(s) Supporting Document(s) ID Date Data Source [id number] 05/06/2020 04:38:33 PM [facility] Name Value Range Interpretation Code Description Data [facility] rce(s) Supporting Document(s) Progress Note [facility] ZEWAJc0jDxGPKiSn61/CGJpuIZZhe6DnBHvuUPj6XXzsILMsG5NdQEI0vU4uULH4KKkZXwFjNbObWbH8 [place] [file] HlV7NlQMFiDgLE7FOYk= ID Date Data Source [id number] 05/06/2020 04:38:28 PM [facility] Name Value Range Interpretation Code Description Data Irish rce(s) Supporting Document(s) Progress Note [facility] JIGTXv5pGeIPWwKd53/GMRsdIJRzl0GdYSgnYIm6LPazCENhY3HxJLQ3lZ0uDHL3JEeEVmQeAuVfGrB1 lbm [file] ICAgICAgICAgICAgICAgICAgICAgICAgICAgICAgICAgICAgICAgICAgICAgICAgICAgICAgICAgICAg ICAgICAgICAgICANCiAgICAgICAgICAgICAgICAgICAgICAgICAgICAgICAgICAgICAgICAgICAgICAg ICAgICAgICAgICAgICAgICAgICAgICAgICAgICAgIC AgICAgICAgICAgICAgICAgICAgICANCiAgICAgICAgICAgICAgICAgICAgICAgICAgICAgICAgICAgIC AgICAgICAgICAgICAgICAgICAgICAgICAgICAgICAgICAgICAgICAgICAgICAgICAgICAgICAgICAgIC AgICANCiAgICAgICAgICAgICAgICAgICAgICAgICAg ICAgICAgICAgICAgICAgICAgICAgICAgICAgICAgICAgICAgICAgICAgICAgICAgICAgICAgICAgICAg ICAgICAgICAgICAgICANCiAgICAgICAgICAgICAgICAgICAgICAgICAgICAgICAgICAgICAgICAgICAg ICAgICAgICAgICAgICAgICAgICAgICAgICAgICAgIC AgICAgICAgICAgICAgICAgICAgICAgICANCiAgICAgICAgICAgICAgICAgICAgICAgICAgICAgICAgIC AgICAgICAgICAgICAgICAgICAgICAgICAgICAgICAgICAgICAgICAgICAgICAgICAgICAgICAgICAgIC AgICAgICANCiAgICAgICAgICAgICAgICAgICAgICAg ICAgICAgICAgICAgICAgICAgICAgICAgICAgICAgICAgICAgICAgICAgICAgICAgICAgICAgICAgICAg ICAgICAgICAgICAgICAgICANCiAgICAgICAgICAgICAgICAgICAgICAgICAgICAgICAgICAgICAgICAg ICAgICAgICAgICAgICAgICAgICAgICAgICAgICAgIC AgICAgICAgICAgICAgICAgICAgICAgICAgICANCiAgICAgICAgICAgICAgICAgICAgICAgICAgICAgIC AgICAgICAgICAgICAgICAgICAgICAgICAgICAgICAgICAgICAgICAgICAgICAgICAgICAgICAgICAgIC AgICAgICAgICANCiAgICAgICAgICAgICAgICAgICAg ICAgICAgICAgICAgICAgICAgICAgICAgICAgICAgICAgICAgICAgICAgICAgICAgICAgICAgICAgICAg ICAgICAgICAgICAgICAgICAgICANCjw/vMUgI5qxhPYudiM5T5nzIn3ZEo9DUM9sv6PfWRNqVRzbqeFs LdxQItWpKEJbKtoIBtq8OAnmYI9FgDKwK4PoC8QfIJ zbIM6CCYGiYSKmiSIsVXQuKERnAkL4CEUbBGnpAV6UqGAgFDunDCNyTXDvFtCaINAcSFVyHCEhBJRcRQ WHUHFnSTZoPfLtNBWgJDAePY9ZYBDhB888uqDoDo9OUn1VFyWoCX5sww8NQzliRNZvLzlRBaz6DIxdQI 2XmVHwzPTwVPAjQPSYSaBmI2zfy1WxSrzvXBURYWuz WY8Dh0VnfJMeTBz+Eb8TZA5wk0PgAQzjPYPfUS9tzu1YVYxTCiXgA4ShwBhoVBPdq7uuLYKuSE8mpFYh JZJ2JVGhtZEcDOHPEKX1VXRaCEanVOSSUTZ1RLLwPcWkXuJoPaSfZUG6QoUiMO2zTQvgGV7YDTU8KTpi OJFxDBDyR8hGOqLjGPBrZHAhtQoeDS4QNrMaF8Ygfa VudCAzOCAwIFINCj4+TRnjpuLmVwnNLkRaRHJrl4BnHUn4XY4ZIJLoMLdjQJ0JQUJdxX4kTVuiYQ8BHg DlYeQlIJLMUrYpM62pmHDwKNo2N0OlJnIvUHWlZmmiXXOcKUfuYuGkBZLdQsDoHRxmFD6+ID4+DQogIC 3AULjrjgFmZAXlXo6IMIVlBOSgBA0nHJUoOSKpT5A5 cDwdHUBTXxIbO1asqnpgOO6oQVOxV908aFomgwLvYLL0DBSdRw0TDCAxOPV6GXHbmTMgQdnjZQBBZQyq ST5OmVSnUYO2kQ1wGSgjXSZnHCKrG5pFXrFfwDcmDE07cQvdnfOtiXRfOTl+Lv0YAJ0jw4SsXNv5glEg YFpmVNMdJNbhKAAbPLBsAWHtMZQ7DQG8FSNHNdVnGP JzOFPcXYokXHNpPMXxgo8PCZKyAKH8VJD9LXNqYOUrBZGvZXzdLEUoMNEmEsSwGVMnRFWxZK9KZuNsMU BpITQxCKmkMRUlCMSogw8LVPSwKSWdLMLfIWVwJLVyFRMkIYchGHMtFLY5DPH0WHGbUOZsKQ4TMcAtBI BkKSadAaOpAQJyNILwkv8JJVOgGOHcYDI4JFOwTPQf TXIwXGdjXKVdMTUxMTPmODRrHZBoSJ9VMcCjWYDwYOS0DPLzTFRrVASmjn3YOWWwOWLiECHvXZHeKSNt RRYtGWsdSRXkROB2LnYmCOHlIRCqHO9WLiYsZDVvPFvlSXPpPIImWBCyxs4OXLLnUEMjCIO8UJVeNICk WVWdJOvlGGYyODDrGdveHBRxLUCwZN2CErSmQQNbYb C2JysqNIDaQSQdpz8APXNlBMGzVxUmIZDvLXJeEDKnQFuyDABfLLIeNsY1VPPjWLLdVW9JMrNwDAIlYf P4NSipQTWaMRUqep5LUYKoBUEaZcr6VvCqRQMxQVRpVVciJOWlLZZwEAc9KQSeVBGePW0YHcLxYKTePt VuEpeuLSZsRVRbll7RFFOjZOMtAXW1WgMeJWMrNLCo TFqxEUPzIKR2TMUqOMJtKAAmRR2RCvVjMUNiMkXbAxAmEVOnUUXcxu5ERXPhYWVjTaF4MSTnJJBoOVFf RHliXNMqYJJ5GWY7WGPiIJPhON0RZnRtREGaJlx0OaKyAGLsZTYqhd4YBHKlJHKhItA2LGXzRKCpMEHk STcpIHHaKIM2VEM0BEHmGEYfNI7DBwBwDGAuLft1GC UpAICgPQPrlp2LBLWnETWxEEx1HwEcYZUzPFXlXXzmSUTxTFN6YFYrNIIpQPYfTU3RPoPnWZOaUZHuEs FmSALrHOMrqe4FICWhORF7WXF0EEOeVQTqTCAaYIuyTPZhZPVeRSKtIVChFRAxFU9KNbBkZMYhUTA7DU YnPNEmTIDdkz1XVIHbXXE9RpO7XkHmGDMfQKUqCWju QVJmJKJpWDSyHPQpUCTnDT4JLjMdKPQcXDP2OKCjSYMcIBYrgd5CiQZjsEorsx8NQJtGMz6DbPifQVGx CCbgEq0qcUU5WRNgACLDHr2RgeOiLQVtUQSAGFxzRTEcKHBdIMQ4ADWxSePuWkDkQGl6YXCxXHZtEnQs ROovGTCtNqL7ZQQ3PzmuEFXvNHG2LXB3PQG6TsE9YE OjECS0P8HmJuP+KT5hLMu+Bt0Vy3BmnbU3cvQtQNn7SwagXD6YDFKXQ7IIYj== ID Date Data Source [id number] 04/22/2020 01:26:12 PM [facility] Name Value Range Interpretation Code Description Data Irish rce(s) Supporting Document(s) Leukocytes [#/volume] in Blood by Automated count 11.1 10*3/uL 4-10 H [facility] Erythrocytes [#/volume] in Blood by Automated count 4.37 10*6/uL 4.6- 6.1 L [facility] Hemoglobin [Mass/volume] in Blood 14.5 g/dL 13.5-18 [facility] Hematocrit [Volume Fraction] of Blood by Automated count 43.5 % 4 1-53 [facility] Erythrocyte mean corpuscular volume [Entitic volume] by Auto mated count 99.4 fL 80-96 H [facility] Erythrocyte mean corpuscular hemoglobin [Entitic mass] by Automated count 33.1 pg 27-33 H [facility] Erythrocyte mean corpuscular hemoglobin concentration [Mass/volume] by Automated count 33.3 g/dL 32.0-36.0 [facility] distribution width [Ratio] by Automated count 14.0 % 11.5-14.5 [facility] Platelets [#/volume] in Blood by Automated count 300 10*3/uL 150-400 [facility] Differential cell count method - Blood [facility] Neutrophils/100 leukocytes in Blood by Automated count 63 % [facility] Lymphocytes/100 leukocytes in Blood by Automated count 20 % [facility] Monocytes/100 leukocytes in Blood by Automated count 10 % [facility] Eosinophils/100 leukocytes in Blood by Automated count 6 % [facility] Basophils/100 leukocytes in Blood by Automated count 1 % [facility] Neutrophils [#/volume] in Blood by Automated count 7.08 10*3/uL 1.8-7 .0 H [facility] Lymphocytes [#/volume] in Blood by Automated count 2.20 10*3/uL 1.2-4 .0 [facility] Monocytes [#/volume] in Blood by Automated count 1.08 10*3/uL 0-0.8 H [facility] Eosinophils [#/volume] in Blood by Automated count 0.66 10*3/uL 0-0.5 H [facility] Basophils [#/volume] in Blood by Automated count 0.13 10*3/uL 0-0.2 [facility] Nucleated erythrocytes/100 leukocytes [Ratio] in Blood by Automated count 0 /100{WBCs} 0-0 [facility] ID Date Data Source [id number] 04/22/2020 02:10:23 PM [facility] Name Value Range Interpretation Code Description Data Irish rce(s) Supporting Document(s) Amylase [Enzymatic activity/volume] in Serum or Plasma 62 U/L 28- 103 [facility] ID Date Data Source [id number] 04/22/2020 02:10:23 PM [facility] Name Value Range Interpretation Code Description Data Irish rce(s) Supporting Document(s) Lipase [Enzymatic activity/volume] in Serum or Plasma 22 U/L 13-6 0 [facility] ID Date Data Source [id number] 04/22/2020 02:10:23 PM [facility] Name Value Range Interpretation Code Description Data Irish rce(s) Supporting Document(s) Albumin [Mass/volume] in Serum or Plasma by Bromocresol green (BCG) dye binding method 4.2 g/dL 3.5-5.2 [facility] Bil[facility].total [Mass/volume] in Serum or Plasma 0.3 mg/dL <1.2 [facility] Calcium [Mass/volume] in Serum or Plasma 8.8 mg/dL 8.6-10.0 [facility] Chloride [Moles/volume] in Serum or Plasma 102 mmol/L 98-107 [facility] Creatinine [Mass/volume] in Serum or Plasma 1.19 mg/dL 0.70-1.20 [facility] Glucose [Mass/volume] in Serum or Plasma 84 mg/dL 70-140 [facility] Alkaline phosphatase [Enzymatic activity/volume] in Serum or Plasma 94 U/L 40-129 [facility] Potassium [Moles/volume] in Serum or Plasma 4.2 mmol/L 3.4-5.1 [facility] Protein [Mass/volume] in Serum or Plasma 6.3 g/dL 6.4-8.3 L [facility] Sodium [Moles/volume] in Serum or Plasma 133 mmol/L 136-145 L [facility] Aspartate aminotransferase [Enzymatic activity/volume] in Serum or Plasma 14 U/L <40 [facility] Urea nitrogen [Mass/volume] in Serum or Plasma 18 mg/dL 6-20 [facility] Osmolality of Serum or Plasma by calculation 277 mosm/kg 275-300 [facility] Creatinine/Urea nitrogen [Mass Ratio] in Serum or Plasma 15 [facility] Bicarbonate [Moles/volume] in Serum 24 mmol/L 22-29 [facility] Alanine aminotransferase [Enzymatic activity/volume] in Seru m or Plasma 15 U/L <41 [facility] Anion gap 3 in Serum or Plasma 7 mmol/L 8-15 L [facility] Glomerular filtration rate/1.73 sq M pre dicted among non-blacks [Volume Rate/Area] in Serum or Plasma by Creatinine-based formula (MDRD) 68 mL/min/1.73m2 >60 [facility] Glomerular filtration rate/1.73 sq M pre dicted among blacks [Volume Rate/Area] in Serum or Plasma by Creatinine-based formula (MDRD) 79 mL/min/1.73m2 >60 [facility] ID Date Data Source [id number] 04/22/2020 02:10:23 PM [facility] Name Value Range Interpretation Code Description Data Irish rce(s) Supporting Document(s) Thyroxine (T4) free [Mass/volume] in Serum or Plasma 0.98 ng/dL 0.93- 1.70 [facility] ID Date Data Source [id number] 04/22/2020 02:10:23 PM [facility] Value Range Interpretation Code Description Data Irish rce(s) Supporting Document(s) Thyrotropin [Units/volume] in Serum or Plasma 2.850 u[IU]/mL 0.270-4. 200 [facility] ID Date Data Source [id number] 04/03/2020 01:51:18 PM [facility] Value Range Interpretation Code Description Data Irish rce(s) Supporting Document(s) Progress Note [facility] FMCSJo0pMrRTLeGj51/WZHkmGQVin8GaWMrpDXj4KJxqFVLeP0EpGXI0cG4eUXK1MXfHWdBoQiJrHQUc [place] [file] pDvUVz+aBmMnVjBISbH84ih9H+nHzC7drfg5w4fKC3a8mNNWQI1ApFcIPbMeNgySnGAHPo06inzK/continuous improvement director 5EzTPLz+47dvQA1EcMAgtUyM0yyp87mhprWjJ9+UF6 sKhIPZrJrNLqrx/QhykqZiKCY2ksX0rg5kn6cKxgjIixhPOQBLDnZqMVJyCqn9hLc9k2Z621Noxa4EFo SUmRaThdLcj5LCfU/II20A2aYzRabbyvUH4wVCVoHnht51DB4mIiqWBH48fYfHv5PpAm9blHsSqv4deI uaZ1+eMVhrzbB5el2ur/Pi4RxPqBZINa+XnQM2s/Bg Oal2FKg+LeCkkENwFAdxCBzavgydDWWy/ZFjQYrKJypCx/pnJsRzbghJC1ZCOZg9TNxFWWJ8+w6g7GNX f7U/NRjh+5HO6UB0eUbl4zyKFTlvPjrT6wZjQE5At3aXqEWGwrqVgUCwRXXEgAYfQrGWrlDXmkVZDd6e sp/EkbnDRtL5l4klrvEqrMiV0sjrdh57836jmkPhV0 06mFdKfyd0qxY3yuqt4AfPksAfuccxQP9Cu3kIFYw96Af9EdziBrzSVIIm2Eni/KrRnyDTQhcQcWB9hj 7dApeeBNbcEtI/GEmXoySyBQXT3j6q02moFWCVcBsKaV8QZBZwNET0XoJsBA68nqftDRZDkwVP8FRhZ2 gGsBeQ8TFmOMkElRaO7Xqnpr5Hh/zjklWyt/dw/QL6 ZA3C/6QnNBsJEdkOw4LFMULbgs8ujZPP2sVwuQpSPC+OgRRnQIL3GuUeCXbrm3YUFBejQ/GKDxUxHFsf Mvb4CALQVTZIO78EYiNQUn8WAsRu2SBmzei/aJOgK0Hr6846JHEFG3NZHZmFShBqFkxUPLoEXRV6sFu5 Ig+FUWCLkIMGIzs7r1yBENiaHSqmyCT5BSBLZNLAGU [file] ICAgICAgICAgICAgICAgICAgICAgICAgICAgICAgIC AgICAgICAgICAgICAgICAgICAgICAgICAgICAgICAgICAgICAgICAgICAgICAgICAgICAgICAgICAgIC JsDL5NIZTmJXDxIABxIVLqNWMqRUHkWQPsPSQfSJGnCCIiDNFkNRVhLJEvKAXqRNEhRVZqZCIbDRPcEP AgICAgICAgICAgICAgICAgICAgICAgICAgICAgICAg KMRgEAMdKFPpORHhHN1CHVOpHQPtOTRbDARqZTVfUQQtAXYsPSOfVYUkEGWiLVEzWANdSLKrQRYrICIh PVHkPIQgMJGsMSFdDMXyBISdLSDbIRVoBCGbPADkJPJbQMDwNYTuHFBmEHFkBKBvWOBuPMYwTE6XJQUq ICAgICAgICAgICAgICAgICAgICAgICAgICAgICAgIC AgICAgICAgICAgICAgICAgICAgICAgICAgICAgICAgICAgICAgICAgICAgICAgICAgICAgICAgICAgIC OfJSIgPA3KJZRbOOKqUYNxHDZaBQKrVVQbCAUlVWSvZVEyJZFuVIXkQDZqGBBfAROvFVInPAGcVTHnKY AgICAgICAgICAgICAgICAgICAgICAgICAgICAgICAg KPPeYWXpLUFlECAyLIYtRG1QDSTfTGIgGAQpRYGqHXXkYOVyKEEhLURjLFAcLRAwNUObYXMhSOKlUBWj XBKfUTRnRNCdRLNsPLPkABUoPEDsLUQfINQbWTZcHAUzKNYqTSVtVPMiTJQsXRQdVTPuALLkBAFwOQ8T ICAgICAgICAgICAgICAgICAgICAgICAgICAgICAgIC AgICAgICAgICAgICAgICAgICAgICAgICAgICAgICAgICAgICAgICAgICAgICAgICAgICAgICAgICAgIC SjTKDnGCHlQG7YFYVmZDTiCRBsRRSpWKYxIITjKNFeWJTaHOEiTBSaRQRyRYWyKIIrPTBiOBMwEAOmUV AgICAgICAgICAgICAgICAgICAgICAgICAgICAgICAg STEiEHPdAWZoXZYqDYXhVXOlHX7LABJlXJEwHCLvTBXfCUAxUAWpRYKkVXTuPLYnIZBcVWLhSZHvBDMk ICAgICAgICAgICAgICAgICAgICAgICAgICAgICAgICAgICAgICAgICAgICAgICAgICAgICAgICAgICAg RY1DLASeFFJjTDZkIPCqPVLkKINpPSQpHJHqQVWhPD AgICAgICAgICAgICAgICAgICAgICAgICAgICAgICAgICAgICAgICAgICAgICAgICAgICAgICAgICAgIC WbWNWjOHIbYSChWE5GMH67oOCbs5Z4AJWxFG9dltu/Ek8JHIhwjgHweJXfIA9GSuOzFD0vbx0IXvSmHM 5arq7GKKqOHkKzI6U5jWThFLMtNRKLPyYrT87lKWgq Ry29AKjvHJOjMhThXKm6Dv8DDlPwO4xkBPPtYtQ3TDVhVmI6XANiEkU3PVWxLoUpOOWlOVQxOVCoZRGJ MGS6QTKdGtYrBwHfXZWoHN1VYACxR261kvTmSg9MVu3YRwGsJO9oft3CWYGgXUChXunTXnn0SVszDZ9D iOFzxIN3YNUrRVGPCgKkY7lga8VlINWaOQBJORhhFN 9El2CpyZXlIGs+Wm9SWM8bd1TrDMa3HUPlCO0vew2GSDpFVvMzZ9IcgCitPPByy8gpZSBvOS9fdXQkQK X5CKCbaRIjKTBWVEQ6MNXtJBgmZIQBTZE9VHAlNlXxFkXsUtZqIUE1MUHjMI2kXXrjEX9FYOX0BWefGT OgSEYmB9zCFbLcVSLfGCWeaYywOE0ABsOlB9GyixOh bWU9FDTcYIZIVq2+UTmloiTjYxiRYpMlYJNrl7SxXJm6QC8OCSTrCYzfNU2KWZAzsW5yCMzeTG3CMeSl OFUlXZZIViPuW55efKGrIIu9R5NfBaOiIZLlJyylCMIqVOduGrSfZCXyQdTuZJybCW8+ID4+NEuzNP6Z MBbagpSrLRCiEw2CDHNhEMKuOM8tCDNqHELmM9S0xM qaTZZIJtIiW9wfqvudWI3wDDKzT513jYqlgxImZVBnKJPbPu0BXMDcNXT4WUDmrLLwHjvzNBPZVWwlDX 0FlWKkGPG6mD8sNIfiJXAcMOTeV8hWNgFonJprBA86jKjmemYyeNUtWMc+Lq6IEL4vn2YjPDx4csOqWL ndEGGyTAywIRKoFVGsOZZdJBE0KSQ0QUOVGiFhMGWv EQXxEXsdTQUeXQJcfr5VOPHaQST4Old5CJMjIZGkRDTsNPtiJOKdPWR3WfV5RLXfGFCoRY8YFzGjIIBq KGGwAWybBZOoHXJagl1LPLYpYZYuXUKxWcQlJUZvVNZwTQmsFPUeHKY6TZZ5AZZrVHBhTP4LThRhMLLd TUemBBttVLJeQPJonf5MYUTyNLNiPEVbOrHgVKUzMJ FnEGzdIYXoVVBqLCC0SAGpNAViTZ0WRoFoCSIwXUW6FjYwXGMzEJInpm3YDUAaWWAnTGH4SMGkXDXtZW OmGSozXUZwFHY7CghrKYKkRRGpWR3VIfEiGOYmZBlxWpSgNOLnUZKkfy9XMCFxRVLtPBGaWNBsRTDzIF DdZUbpTMPeLDHlLZJdLMNjWATcEU2SBmBoRWIxWaTl LKQsCVAwLHHauo4KKFCiCSKuIWg4UYCmAXExMWHeSQqpLCWoEYY4EOD9ZVQlPCRkGE2MWmDmCLGjZyC9 AUOjKHYgHGZklf8UWGPeXLVnBnLzLFVaIULpRUQvGYcpLSMgLDK5Bmb8MASaUCIbKK9GDaXcAHKvGoct EIFsDBHyHVJlsv9BGNYrLQLeTvE0QOCwVAUsHZXgQN dsZSQwOHA5YwQiWBMjTIJwHJ1AKlZuCVEjRnukWbMqSXKwXFPjdm1XJEHaFXQcEPR3DAZyCCLzFSWmRS yyNSHpPCI8MlC3LTFwBVNoGI0RQoToTLAyCpr5FIqiORWxMEAjhq1WOJGsFZJ3VNSyCyIrMWQoDHWyRM kbRYWhOCNjKLC6VTQwWJAwQY7HShKuGQHpUJNeYfZe FYFaKCNjem3EQAAnPUF3WIDzEpTqUNBtMGTlVHpwLNBzQOVdJcM9XLUxXPPsVV6YVgRyXAVaYEM3Aszp GHNzBHFtpu1SIFSvHWN1XwEqDLYgQTMyMJGzTLvsBFLrFFKkJEFoUTFsNHLmJL4AHlEkOOXlSAI3CIVo RTRwBXIedc7NAAFrKQD0DficEDRiKFKjOWJeSHggWM VmZKH4Pmv5QTYwNRTfRE2TEaVrIZBfQRP9VPMvMYDvZZVtdv8PPTCoQIP4LAvcRaOyTUMdIAOjCBcpWM LmUIQ5GXf6JLKkDJOlQL4FNdSnYPxmSTZHYjd6XGnvJ5x4BJM5Dz7GL9Rdd7OeWBCbNXAUTRlhNT4elu ReWNIdYw1VG0jFTenvIRTtJaU9NYSfPPS5AHX7TEz2 SdBlDPD5BVZ4BBsnDs7sEZZwFsLyZHDsLoN9Usa6XYB6PMEgQuCkRkmcUOV6VBTrMoHaVJ3UVb5FLrP9 DAQ0bGLbNt4IHNIfBxYBPnSzFE7AWMy= ID Date Data Source [id number] 04/03/2020 01:51:13 PM [facility] Name Value Range Interpretation Code Description Data Irish rce(s) Supporting Document(s) Progress Note [facility] POGAMy6cDxVUWaLj02/PPAfiBVTli1JqGKidLCx1ZMcxSHPvG6LoZAE4xG8dJAC1TFpOWfQwFuJyNHWs lbm [file] NGSfRsBzXZV3FAttJ6N2ToK1VBK5DDD0YNF+IF0g DQo+Ah7Wy1RybvU6noYiKFnxXTI3UO8WBVSJR0BMSq== ID Date Data Source [id number] 04/03/2020 09:30:00 AM EST [facility] Name Value Range Interpretation Code Description Data Irish rce(s) Supporting Document(s) SARS coronavirus 2 RNA [facility] This lab was ordered by [facility] and reported by [facility]. ID Date Data Source [id number] 04/01/2020 01:12:23 PM [facility] <0.1Serum levels of PSA should not be in terpreted as absolute evidence of the presence or absence of Cancer. Results obtained with different methods cannot be used interchangeably. This method is manufactured by [employer] and is an electrochemiluminesence immunoassay. Name Value Range Interpretation Code Description Data Irish rce(s) Supporting Document(s) Leukocytes [#/volume] in Blood by Automated count 11.7 10*3/uL 4-10 H [facility] Erythrocytes [#/volume] in Blood by Automated count 4.33 10*6/uL 4.6- 6.1 L [facility] Hemoglobin [Mass/volume] in Blood 14.4 g/dL 13.5-18 [facility] Hematocrit [Volume Fraction] of Blood by Automated count 43.1 % 4 1-53 [facility] Erythrocyte mean corpuscular volume [Entitic volume] by Auto mated count 99.6 fL 80-96 H [facility] Erythrocyte mean corpuscular hemoglobin [Entitic mass] by Automated count 33.2 pg 27-33 H [facility] Erythrocyte mean corpuscular hemoglobin concentration [Mass/volume] by [facility] 33.4 g[facility] width [Ratio] by Automated count 13.9 % 11.5-14.5 [facility] Platelets [#/volume] in Blood by Automated count 298 10*3/uL 150-400 [facility] Differential cell count method - Blood [facility] Neutrophils/100 leukocytes in Blood by Automated count 67 % [facility] Lymphocytes/100 leukocytes in Blood by Automated count 19 % [facility] Monocytes/100 leukocytes in Blood by Automated count 9 % [facility] Eosinophils/100 leukocytes in Blood by Automated count 4 % [facility] Basophils/100 leukocytes in Blood by Automated count 1 % [facility] Neutrophils [#/volume] in Blood by Automated count 7.86 10*3/uL 1.8-7 .0 H [facility] Lymphocytes [#/volume] in Blood by Automated count 2.25 10*3/uL 1.2-4 .0 [facility] Monocytes [#/volume] in Blood by Automated count 1.05 10*3/uL 0-0.8 H [facility] Eosinophils [#/volume] in Blood by Automated count 0.44 10*3/uL 0-0.5 [facility] Basophils [#/volume] in Blood by Automated count 0.11 10*3/uL 0-0.2 [facility] Nucleated erythrocytes/100 leukocytes [Ratio] in Blood by Automated count 0 /100{WBCs} 0-0 [facility] ID Date Data Source [id number] 04/01/2020 01:53:21 PM [facility] <0.1Serum levels of PSA should not be in terpreted as absolute evidence of the presence or absence of Cancer. Results obtained with different methods cannot be used interchangeably. This method is manufactured by [employer] and is an electrochemiluminesence immunoassay. Name Value Range Interpretation Code Description Data Irish rce(s) Supporting Document(s) Amylase [Enzymatic activity/volume] in Serum or Plasma 77 U/L 28- 103 [facility] ID Date Data Source [id number] 04/01/2020 01:53:21 PM [facility] <0.1Serum levels of PSA should not be in terpreted as absolute evidence of the presence or absence of Cancer. Results obtained with different methods cannot be used interchangeably. This method is manufactured by [employer] and is an electrochemiluminesence immunoassay. Name Value Range Interpretation Code Description Data Irish rce(s) Supporting Document(s) Thyroxine (T4) free [Mass/volume] in Serum or Plasma 1.03 ng/dL 0.93- 1.70 [facility] ID Date Data Source [id number] 04/01/2020 01:53:21 PM [facility] <0.1Serum levels of PSA should not be in terpreted as absolute evidence of the presence or absence of Cancer. Results obtained with different methods cannot be used interchangeably. This method is manufactured by [employer] and is an electrochemiluminesence immunoassay. Name Value Range Interpretation Code Description Data Irish rce(s) Supporting Document(s) Thyrotropin [Units/volume] in Serum or Plasma 2.040 u[IU]/mL 0.270-4. 200 [facility] ID Date Data Source [id number] 04/01/2020 01:53:21 PM [facility] <0.1Serum levels of PSA should not be in terpreted as absolute evidence of the presence or absence of Cancer. Results obtained with different methods cannot be used interchangeably. This method is manufactured by [employer] and is an electrochemiluminesence immunoassay. Name Value Range Interpretation Code Description Data Irish rce(s) Supporting Document(s) Lipase [Enzymatic activity/volume] in Serum or Plasma 34 U/L 13-6 0 [facility] ID Date Data Source [id number] 04/01/2020 01:53:21 PM [facility] <0.1Serum levels of PSA should not be in terpreted as absolute evidence of the presence or absence of Cancer. Results obtained with different methods cannot be used interchangeably. This method is manufactured by [employer] and is an electrochemiluminesence immunoassay. Name Value Range Interpretation Code Description Data Irish rce(s) Supporting Document(s) Albumin [Mass/volume] in Serum or Plasma by Bromocresol green (BCG) dye binding method 4.2 [facility] Bil[facility] [Mass/volume] in Serum or Plasma 0.3 mg/dL <1.2 [facility] Calcium [Mass/volume] in Serum or Plasma 9.0 mg/dL 8.6-10.0 [facility] Chloride [Moles/volume] in Serum or Plasma 106 mmol/L 98-107 [facility] Creatinine [Mass/volume] in Serum or Plasma 1.40 mg/dL 0.70-1.20 H [facility] Glucose [Mass/volume] in Serum or Plasma 99 mg/dL 70-140 [facility] Alkaline phosphatase [Enzymatic activity/volume] in Serum or Plasma 94 U/L 40-129 [facility] Potassium [Moles/volume] in Serum or Plasma 4.5 mmol/L 3.4-5.1 [facility] Protein [Mass/volume] in Serum or Plasma 6.6 g/dL 6.4-8.3 [facility] Sodium [Moles/volume] in Serum or Plasma 139 mmol/L 136-145 [facility] Aspartate aminotransferase [Enzymatic activity/volume] in Serum or Plasma 17 U/L <40 [facility] Urea nitrogen [Mass/volume] in Serum or Plasma 23 mg/dL 6-20 H [facility] Osmolality of Serum or Plasma by calculation 292 mosm/kg 275-300 [facility] Creatinine/Urea nitrogen [Mass Ratio] in Serum or Plasma 16 [facility] Bicarbonate [Moles/volume] in Serum 23 mmol/L 22-29 [facility] Alanine aminotransferase [Enzymatic activity/volume] in Seru m or Plasma 19 U/L <41 [facility] Anion gap 3 in Serum or Plasma 10 mmol/L 8-15 [facility] Glomerular filtration rate/1.73 sq M pre dicted among non-blacks [Volume Rate/Area] in Serum or Plasma by Creatinine-based formula (MDRD) 56 mL/min/1.73m2 >60 L [facility] Glomerular filtration rate/1.73 sq M pre dicted among blacks [Volume Rate/Area] in Serum or Plasma by Creatinine-based formula (MDRD) 65 mL/min/1.73m2 >60 [facility] ID Date Data Source [id number] 04/01/2020 02:29:02 PM EDT [facility] <0.1Serum levels of PSA should not be in terpreted as absolute evidence of the presence or absence of Cancer. Results obtained with different methods cannot be used interchangeably. This method is manufactured by [employer] and is an electrochemiluminesence immunoassay. Name Value Range Interpretation Code Description Data Irish rce(s) Supporting Document(s) Prostate Specific Ag Free [Mass/volume] in Serum or Plasma [facility] Not Applicable ID Date Data Source [id number] 03/14/2020 09:41:40 PM EDT [facility] Name Value Range Interpretation Code Description Data Irish rce(s) Supporting Document(s) Progress Note [facility] [id number] lbm [file] [id number]== ID Date Data Source [id number] 03/14/2020 09:41:35 PM EDT [facility] Name Value Range Interpretation Code Description Data Irish rce(s) Supporting Document(s) Progress Note [facility] [id number]dERZ5xH1gXQI4TCcNXwEsDpDsZTMw lbm MbVzgTXaYzAYKqRlmXDpIxQFoxKkheeXKpVJ8KmBK2GLNvZ48wZILuJWCuI6QiFCHsQif+Vx7CNPBqoJ RwNT3JEmfY3O5lifnC4k0X/8XRydZxvFIH9K2LKcCSbrqUofBVT4J5E9jOnfJcdG6XBjw3EA+2An5s4b wzJxlpKNtpEgTWyQzP/MUQ4PjyD0+gfh0pyvRiz6rS fijYeM7+/PdRI0KIprs1VE4ZKjmhrLn0oWkp5/sNSToX5gjWVCdlwBtCz3ptEAw4vZc6yxh5eK9afJg9 EtVqSL9kkVv+bHByxOzAckPXPn/+nI1+I1yz8s8qlaynNX6iU7keUkYZCmupkTQOAALBba1lpiqcNlx9 s0d3bHD8FtdBMtdFTwGBMbc4THNptm8YzvnJUG0ZP6 HNGWYuI0QRDv8L66PhZOYZayZ12fsLn8SekNbDk7nfBJTNfhG5xEDlKMA4id6ZjKb0ltCs2LJJ5tZGbF xXtgNEA2hafMoOI7jYcbVki5NY5vRgbh41/n50kOtMlJrUqBSUSK4SiyUUaYhs3sOQJCZF0YFa/l64x8 M7K6CG8LbjVl+sbvcMf4m7vcLU92FX6NbDo1ltPJjS 32XvMbPVNF5luExpPdla5jL/fP6J9ZZJyx6SRB0tQLX5i1RWolWZxOrCCi6YyQX58/eDXd/zfdkAvEnm azlWRnPftSmKBMVU3YbOC9pTZ0cwQHZ8sVuLd7KiecImKnPvxiJYwpPECAz/BfW9bkHJnDtd2qtAmKQs EqzZamh7bbYUBTaGdWAMZ7IVS5VNLNtCK1BHIEARho [file] ICAgICAgICAgICAgICAgICAgICAgICAgICAgICAgICAgICAgICAgICAgICAgICAgICAgICAgICAgICAg ICAgICAgICAgICAgICAgICAgICAgICAgICAgICAgIC AgICAgICANCiAgICAgICAgICAgICAgICAgICAgICAgICAgICAgICAgICAgICAgICAgICAgICAgICAgIC AgICAgICAgICAgICAgICAgICAgICAgICAgICAgICAgICAgICAgICAgICAgICAgICANCiAgICAgICAgIC AgICAgICAgICAgICAgICAgICAgICAgICAgICAgICAg ICAgICAgICAgICAgICAgICAgICAgICAgICAgICAgICAgICAgICAgICAgICAgICAgICAgICAgICAgICAN CiAgICAgICAgICAgICAgICAgICAgICAgICAgICAgICAgICAgICAgICAgICAgICAgICAgICAgICAgICAg ICAgICAgICAgICAgICAgICAgICAgICAgICAgICAgIC AgICAgICAgICANCiAgICAgICAgICAgICAgICAgICAgICAgICAgICAgICAgICAgICAgICAgICAgICAgIC AgICAgICAgICAgICAgICAgICAgICAgICAgICAgICAgICAgICAgICAgICAgICAgICAgICANCiAgICAgIC AgICAgICAgICAgICAgICAgICAgICAgICAgICAgICAg ICAgICAgICAgICAgICAgICAgICAgICAgICAgICAgICAgICAgICAgICAgICAgICAgICAgICAgICAgICAg ICANCiAgICAgICAgICAgICAgICAgICAgICAgICAgICAgICAgICAgICAgICAgICAgICAgICAgICAgICAg ICAgICAgICAgICAgICAgICAgICAgICAgICAgICAgIC AgICAgICAgICAgICANCiAgICAgICAgICAgICAgICAgICAgICAgICAgICAgICAgICAgICAgICAgICAgIC AgICAgICAgICAgICAgICAgICAgICAgICAgICAgICAgICAgICAgICAgICAgICAgICAgICAgICANCiAgIC AgICAgICAgICAgICAgICAgICAgICAgICAgICAgICAg ICAgICAgICAgICAgICAgICAgICAgICAgICAgICAgICAgICAgICAgICAgICAgICAgICAgICAgICAgICAg ICAgICANCiAgICAgICAgICAgICAgICAgICAgICAgICAgICAgICAgICAgICAgICAgICAgICAgICAgICAg ICAgICAgICAgICAgICAgICAgICAgICAgICAgICAgIC AgICAgICAgICAgICAgICANCjw/wSMyO4jtxVObliV0H6zaSb4EUh7LPH4do1ZpCVKuCZyaxsQoOzjOPt UjJQWgZsdJXca6VPyhCJ9LmEHjC2KsR4ZcCNanDI5COWVnNUCilFCtPARgNGBrEbH5WLIdSCqfDJ1KxZ RzIFsgNSAwIFIgOCAwIFIgMTAgMCBSIDEyIDAgUiAx REUxDLLjQTBuMLIMER9YSuRoB4VqxP59ZPEYUf5+LCvrghQwFvqRAfS3KYHjj5EiGUf7NJ4HGZDsXnny m2IcUIStDCGJYJhgKT3LFZP6RJLzPNFoTz8HSUSkI993beJjFX9SLy2PBoDvWH9ded9KNDHhRAIuHvdL Bus1DKibXI2AjRQtYXoYzh5wgtElovZDa1YwjdZbsF QQxqjaACWwBIHmnXvyGU6MWZK6VQKlNpizLwIrHPDnJWjvSCECGWxOGwWbW2Xgf1MxMhY0FJVlAeOfVL wvJKQnJaY1OZ18bAqaHB5DRZCiYPLpLF73MVQ8YWBzBp6XBp0IXaMpXU8ual7UBvCiHJ3uhi4OSJyYQy MbP0U4iKGdR1Dwtg34HJ4VpHE7jQAcYO9NaR0oZX9R g6QlEGDzTvKkJGJgKVQhPJMxDRClQgOpRI7FDAUhLlJtyXTqUEDxVNT9RCMrUcW2FWTaSZ9FHEKlVDO9 XQ3EYJ2HAdfsG8YBYNjeoZfqJaDNNAW/SNJOJAOEEZthTZNuX08FI4YUWFqVEfatKRlOUrnqAj3gEGe+ Ta7KHL6lh5CvUVy6LCVlIQ0azr7ZJHuOGfEpF4D3tQ JaY0Y4QGikCm4CYBOfWBEgWnvkBIZTHIqhJK4JFT0dtsH4GJ3BzVRqZAVzNCOxqSBgUVl3B15odQFpCF vdIP9GFKK+Zeferino+Ro1KJIJiZNLlKSOjGoIsHLGELlEqV6NkG6JNm0IoH5ViBN88iVuxyzZkTEvtAE7ZOQ 7gVWQnEBIYSD2EuINyyP0uuiAaQGFiUCCNLiYlU99k sUPjGMPrCUY8NDHmUd2MBEXjV9WjcyGvtDayatWiEYOjWGOEHX1LIScbaiUyrXUjwQgxGI88mHjpJL8I Zw9TMsWtLD3sqr6PaARvHf9HPXN2Vo7HQKJuYOYwBMQjJBE3RCDtTbHcCGqmPTQvOSVkYPI8RALiQSZb DS5QShXyBWAvOWBgHImkQCTiALMqgs8HBBJnHOF5Wn VgFUBvWIRzAUSdSBybMIJnJLTtLGD1ADPaJPYlZM1WXbIeQQYcFZTnZpDvTODiNQOewv9BVXSwIBV4Nh X8EGPhKMRhXNBrRUfcFXAyFKPyTEN4JMEoTFAlHG2FGlIrPJIlJDu1FhJmCTMhWZFxuh3UBVIcESTtDG HbRQIgZKKiGKTlFUhwIGYqSBUpChL4SDFwGIDrIG8H ZiCfXEIaJJE1LdAcISDwATUfkr1AKKDsMBRgSZTfSGAoWNAsCZPiHEzkXMIcUYQ7HrTtNALeEIImGC7Y IdRqCWPvFCr2KdVbOEPpVXLetq4EZFIcFUKaMIw5UESjEHNkOBGuATlmHJQvFSYbWNQ8RIHqNEHpNF7R YnCgGETnQrMcAlDpHLYhHHLuev1JUGZuPLXhWoOyKs JwOWFzGPCfSFbpJUSwEARsWDX8IPTeDOVlYZ3JMoEhONEwUdH6MQUdUPScXEWbhh2UAUYbUNXqNxG8UJ LbGSRoANScCYnxZQSxQNWvDcVuGZWlPPSpBO3NCnRvNMWlVbV3VCKvQHYcVCIzpu9TZHUcKCJmBQQ6MI OfHSQcPRHvGMhjLZMgDXC0IuT9QAGrHVJuFX5XWaMm LQVbOlU5KKFiAYUyLCUcik4DFHXjNMKcSvG8CBUqISGjTGYaTIbsOLKtLXX8BvIrXZPrJFMtKS6YFhDb TWLoKkluHEXqIUFrQXMyld3KKNVlBPUjAnJ4TzRiXJWpTKCfCDytTZVcUIA1ImJmUCBfFDWvDM7DFiJg QDAmZum5BtNeMZWtPUIpxd7EVGTgLRSpAPc3PoQnBT KmCONuZIqdFTDlWCB8JRX5EBRwNJGcQQ0LNnOcVXWuBov8BlYlOKIaHEWnwu7UPJLlELA8VFP9EvJcNP CnSXWdIAhdVRApAUReTyE3GPAxOQKhXU7VPcVzEBBpIFJ0OIBtPNCsCGZlfp6FIYIaMDU3PkR0KvDhWR CmVEScXKauVXOfEOZhElH9URCqLHHpUA1HWcPvXRMp DSI2VCNfFAErEJLebj4MbTKsoAoqgv3JWIjTJu7ZfPugVRDvNJusHn7mhXX0VTItVDDVOr3SamEdBDJm IKCLNWfgOVPdGLP1XYU1LLFdJYh7TCO6QLtiLyWfOuNuGNV5ZiLlGdJ2QwF2COcqBOT2SmW5OPybDHI0 UGJnRLPcHVM9RtgcRjOjShj+KG3qZIb+[id number]== ID Date Data Source [id number] 03/11/2020 01:08:07 PM EDT [facility] Name Value Range Interpretation Code Description Data Irish rce(s) Supporting Document(s) Leukocytes [#/volume] in Blood by Automated count 11.0 10*3/uL 4-10 H [facility] Erythrocytes [#/volume] in Blood by Automated count 4.33 10*6/uL 4.6- 6.1 L [facility] Hemoglobin [Mass/volume] in Blood 14.9 g/dL 13.5-18 [facility] Hematocrit [Volume Fraction] of Blood by Automated count 42.8 % 4 1-53 [facility] Erythrocyte mean corpuscular volume [Entitic volume] by Auto mated count 98.9 fL 80-96 H [facility] Erythrocyte mean corpuscular hemoglobin [Entitic mass] by Automated count 34.5 pg 27-33 H [facility] Erythrocyte mean corpuscular hemoglobin concentration [Mass/volume] by Automated count 34.9 g/dL 32.0-36.0 [facility] distribution width [Ratio] by Automated count 14.4 % 11.5-14.5 [facility] Platelets [#/volume] in Blood by Automated count 299 10*3/uL 150-400 [facility] Differential cell count method - Blood [facility] Neutrophils/100 leukocytes in Blood by Automated count 64 % [facility] Lymphocytes/100 leukocytes in Blood by Automated count 20 % [facility] Monocytes/100 leukocytes in Blood by Automated count 9 % [facility] Eosinophils/100 leukocytes in Blood by Automated count 6 % [facility] Basophils/100 leukocytes in Blood by Automated count 1 % [facility] Neutrophils [#/volume] in Blood by Automated count 7.09 10*3/uL 1.8-7 .0 [facility] Lymphocytes [#/volume] in Blood by Automated count 2.14 10*3/uL 1.2-4 .0 [facility] Monocytes [#/volume] in Blood by Automated count 1.03 10*3/uL 0-0.8 H [facility] Eosinophils [#/volume] in Blood by Automated count 0.62 10*3/uL 0-0.5 [facility] Basophils [#/volume] in Blood by Automated count 0.10 10*3/uL 0-0.2 [facility] Nucleated erythrocytes/100 leukocytes [Ratio] in Blood by Automated count 0 /100{WBCs} 0-0 [facility] ID Date Data Source [id number] 03/11/2020 01:48:02 PM [facility] Name Value Range Interpretation Code Description Data Irish rce(s) Supporting Document(s) Amylase [Enzymatic activity/volume] in Serum or Plasma 123 U/L 28- 103 H [facility] ID Date Data Source [id number] 03/11/2020 01:48:02 PM [facility] Name Value Range Interpretation Code Description Data Irish rce(s) Supporting Document(s) Lipase [Enzymatic activity/volume] in Serum or Plasma 90 U/L 13-6 0 H [facility] ID Date Data Source [id number] 03/11/2020 01:48:02 PM EDT [facility] Name Value Range Interpretation Code Description Data Irish rce(s) Supporting Document(s) Albumin [Mass/volume] in Serum or Plasma by Bromocresol green (BCG) dye binding method 4.1 g/dL 3.5-5.2 [facility] Bilirubin.total [Mass/volume] in Serum or Plasma 0.2 mg/dL <1.2 [facility] Calcium [Mass/volume] in Serum or Plasma 9.1 mg/dL 8.6-10.0 [facility] Chloride [Moles/volume] in Serum or Plasma 104 mmol/L 98-107 [facility] Creatinine [Mass/volume] in Serum or Plasma 1.36 mg/dL 0.70-1.20 H [facility] Glucose [Mass/volume] in Serum or Plasma 75 mg/dL 70-140 [facility] Alkaline phosphatase [Enzymatic activity/volume] in Serum or Plasma 93 U/L 40-129 [facility] Potassium [Moles/volume] in Serum or Plasma 4.5 mmol/L 3.4-5.1 [facility] Protein [Mass/volume] in Serum or Plasma 6.6 g/dL 6.4-8.3 [facility] Sodium [Moles/volume] in Serum or Plasma 138 mmol/L 136-145 [facility] Aspartate aminotransferase [Enzymatic activity/volume] in Serum or Plasma 18 U/L <40 [facility] Urea nitrogen [Mass/volume] in Serum or Plasma 20 mg/dL 6-20 [facility] Osmolality of Serum or Plasma by calculation 286 mosm/kg 275-300 [facility] Creatinine/Urea nitrogen [Mass Ratio] in Serum or Plasma 14 [facility] Bicarbonate [Moles/volume] in Serum 25 mmol/L 22-29 [facility] Alanine aminotransferase [Enzymatic activity/volume] in Seru m or Plasma 22 U/L <41 [facility] Anion gap 3 in Serum or Plasma 8 mmol/L 8-15 [facility] Glomerular filtration rate/1.73 sq M pre dicted among non-blacks [Volume Rate/Area] in Serum or Plasma by Creatinine-based formula (MDRD) 58 mL/min/1.73m2 >60 L [facility] Glomerular filtration rate/1.73 sq M pre dicted among blacks [Volume Rate/Area] in Serum or Plasma by Creatinine-based formula (MDRD) 67 mL/min/1.73m2 >60 [facility] ID Date Data Source [id number] 03/11/2020 01:48:02 PM EDT [facility] Name Value Range Interpretation Code Description Data Irish rce(s) Supporting Document(s) Thyroxine (T4) free [Mass/volume] in Serum or Plasma 1.14 ng/dL 0.93- 1.70 [facility] ID Date Data Source [id number] 03/11/2020 01:48:02 PM EDT [facility] Name Value Range Interpretation Code Description Data Irish rce(s) Supporting Document(s) Thyrotropin [Units/volume] in Serum or Plasma 2.880 u[IU]/mL 0.270-4. 200 [facility] ID Date Data Source [id number] 03/11/2020 08:36:00 AM EDT [facility] Name Value Range Interpretation Code Description Data Irish rce(s) Supporting Document(s) Free T4 1.14 [facility] Thyroid Stimulating Hormone 2.880 [facility] ([facility]) ID Date Data Source [id number] 03/11/2020 08:36:00 AM EDT [facility] Name Value Range Interpretation Code Description Data Irish rce(s) Supporting Document(s) Albumin [Mass/volume] in Serum or Plasma 4.1 [facility] ([facility]) Alanine aminotransferase [Enzymatic activity/volume] in Serum or Pl asma 22 [facility] ([facility]) Calcium [Mass/volume] in Serum or Plasma 9.1 [facility] ([facility]) Carbon dioxide, total [Moles/volume] in Serum or Plasma 25 [facility] ([facility]) Chloride [Moles/volume] in Serum or Plasma 104 [facility] ([facility]) Alkaline phosphatase [Enzymatic activity/volume] in Serum or Plasma 9 3 [facility] ([facility]) Protein [Mass/volume] in Serum or Plasma 6.6 [facility] ([facility]) Aspartate aminotransferase [Enzymatic activity/volume] in Serum or Plasma 18 [facility] ([facility]) Potassium [Moles/volume] in Serum or Plasma 4.5 [facility] ([facility] Sodium 138 [facility] Creatinine For GFR 1.36 [facility] ([facility] Urea nitrogen [Mass/volume] in Serum or Plasma 14 [facility] ([facility] Glucose 75 70-140 [facility] Procedure Social History Code Duration Value Status Description Data Source(s ) Alcohol intake 04/21/2021 12:00:00 AM EST Current drinker of al cohol (finding) completed Current drinker of alcohol (finding) [facility] Alcohol intake 01/20/2021 12:00:00 AM EDT Current drinker of al cohol (finding) completed Current drinker of alcohol (finding) [facility] Alcohol intake 01/09/2021 12:00:00 AM EDT Current drinker of al cohol (finding) completed Current drinker of alcohol (finding) [facility] Alcohol intake 12/23/2020 12:00:00 AM EDT Current drinker of al cohol (finding) completed Current drinker of alcohol (finding) [facility] Alcohol intake 2020 12:00:00 AM EDT Current drinker of al cohol (finding) completed Current drinker of alcohol (finding) [facility] Alcohol intake 11/23/2020 12:00:00 AM EDT Current drinker of al cohol (finding) completed Current drinker of alcohol (finding) [facility] Alcohol intake 11/09/2020 12:00:00 AM EDT Current drinker of al cohol (finding) completed Current drinker of alcohol (finding) [facility] Alcohol intake 10/26/2020 12:00:00 AM EDT Current drinker of al cohol (finding) completed Current drinker of alcohol (finding) [facility] Alcohol intake 09/22/2020 12:00:00 AM EDT Current drinker of al cohol (finding) completed Current drinker of alcohol (finding) [facility] Alcohol intake 09/21/2020 12:00:00 AM EDT Current drinker of al cohol (finding) completed Current drinker of alcohol (finding) [facility] Alcohol intake 09/06/2020 12:00:00 AM EDT Current drinker of al cohol (finding) completed Current drinker of alcohol (finding) [facility] Tobacco use and exposure 08/26/2020 12:00:00 AM EDT Smokeless to bacco non-user completed Smokeless tobacco non-user [facility] Cigarette pack-years 08/26/2020 12:00:00 AM EDT UNK completed [facility] Cigarettes smoked current (pack per day) - Reported 08/27/19 12:00:00 AM EDT UNK completed [address].12 [facility] Smoking 08/26/2020 12:00:00 AM EDT Light tobacco smoker comple tricia Light tobacco smoker [facility] Alcohol intake 08/26/2020 12:00:00 AM EDT Current drinker of al cohol (finding) completed Current drinker of alcohol (finding) [facility] Alcohol intake 08/24/2020 12:00:00 AM EDT Current drinker of al cohol (finding) completed Current drinker of alcohol (finding) [facility] Alcohol intake 07/27/2020 12:00:00 AM EST Current drinker of al cohol (finding) completed Current drinker of alcohol (finding) [facility] Smoking 06/21/2020 12:00:00 AM EST Current Smoker completed Curre nt Smoker eCW1 ([facility]) Alcohol intake 06/01/2020 12:00:00 AM EST Current drinker of al cohol (finding) completed Current drinker of alcohol (finding) [facility] Alcohol intake 05/13/2020 12:00:00 AM EST Current drinker of al cohol (finding) completed Current drinker of alcohol (finding) [facility] Alcohol intake 04/22/2020 12:00:00 AM EST Current drinker of al cohol (finding) completed Current drinker of alcohol (finding) [facility] Alcohol intake 04/01/2020 12:00:00 AM EDT Current drinker of al cohol (finding) completed Current drinker of alcohol (finding) [facility] Alcohol intake 03/11/2020 12:00:00 AM EDT Current drinker of al cohol (finding) completed Current drinker of alcohol (finding) [facility] Vital Signs ID Date Data Source [id number] Name Value Range Interpretation Code Description Data Source(s) Systolic blood pressure 122 mm[Hg] 122 mm[Hg] M [facility] ([facility]) Diastolic blood pressure 78 mm[Hg] 78 mm[Hg] [facility] ([facility]) Heart rate 96 /min 96 /min [facility] ([facility]) Body height 68 [in_i] 68 [in_i] [facility] ([facility]) 5'8" Body weight 168.00 [lb_av] 168.00 [lb_av] MEDEN T ([facility]) Oxygen saturation in Arterial blood by Pulse oximetry 98 % 98 % [facility] ([facility]) Body mass index (BMI) [Ratio] 25.5 kg/m2 25.5 k g/m2 [facility] ([facility]) Body weight 164.6 [lb_av] 164.6 [lb_av] eCW1 ([facility]) Body height 67 [in_i] 67 [in_i] eCW1 ([facility]) Body mass index (BMI) [Ratio] 25.78 kg/m2 25.78 kg/m2 W1 ([facility]) Heart rate 71 /min 71 /min eCW1 ([facility]) Respiratory rate 18 /min 18 /min eCW1 ([facility]) Body temperature 97.4 [degF] 97.4 [degF] eCW1 ( [facility]) Systolic blood pressure 118 mm[Hg] 118 mm[Hg] e CW1 ([facility]) Diastolic blood pressure 79 mm[Hg] 79 mm[Hg] eCW1 ([facility]) ID Date Data Source [id number] 04/07/2021 10:10:44 AM EDT [facility] Name Value Range Interpretation Code Description Data Source(s) WEIGHT RECORDED 170.2 lb 170.2 lb [facility] ID Date Data Source [id number] 03/10/2021 12:29:48 PM EDT [facility] Name Value Range Interpretation Code Description Data Source(s) WEIGHT RECORDED 167 lb 167 lb [facility] ID Date Data Source [id number] 12/11/2020 10:58:19 PM EDT [facility] Name Value Range Interpretation Code Description Data Source(s) WEIGHT RECORDED 170.2 lb 170.2 lb [facility] ID Date Data Source [id number] 10/26/2020 03:37:16 PM EDT [facility] Name Value Range Interpretation Code Description Data Source(s) WEIGHT RECORDED 168.4 lb 168.4 lb [facility] Hospital ID Date Data Source [id number] 09/22/2020 12:28:33 PM EDT [facility] Name Value Range Interpretation Code Description Data Source(s) WEIGHT RECORDED 166.4 lb 166.4 lb [facility] ID Date Data Source [id number] 09/08/2020 08:37:31 AM EDT [facility] Name Value Range Interpretation Code Description Data Source(s) WEIGHT RECORDED 166 lb 166 lb [facility] ID Date Data Source [id number] 08/26/2020 12:24:30 PM EDT [facility] Value Range Interpretation Code Description Data Source(s) WEIGHT RECORDED 170 lb 170 lb [facility] Body height Measured 68 in 68 in [facility] ID Date Data Source [id number] 07/27/2020 03:59:13 PM [facility] Name Value Range Interpretation Code Description Data Source(s) WEIGHT RECORDED 184 lb 184 lb [facility] ID Date Data Source [id number] 06/29/2020 05:41:18 PM [facility] Name Value Range Interpretation Code Description Data Source(s) WEIGHT RECORDED 184 lb 184 lb [facility] ID Date Data Source [id number] 06/07/2020 02:13:13 PM [facility] Name Value Range Interpretation Code Description Data Source(s) WEIGHT RECORDED 180.8 lb 180.8 lb [facility] ID Date Data Source [id number] 05/17/2020 09:07:03 AM [facility] Name Value Range Interpretation Code Description Data Source(s) WEIGHT RECORDED 175.2 lb 175.2 lb [facility] ID Date Data Source [id number] 05/06/2020 04:38:33 PM [facility] Name Value Range Interpretation Code Description Data Source(s) WEIGHT RECORDED 175 lb 175 lb [facility] ID Date Data Source [id number] 04/03/2020 01:51:18 PM [facility] Name Value Range Interpretation Code Description Data Source(s) WEIGHT RECORDED 178.6 lb 178.6 lb [facility] Patient Treatment Plan of Care Planned Activity Planned Date Details Description Data Source (s) Levofloxacin 500 MG Oral Tablet 04/21/2021 12:00:00 AM [facility] Nitroglycerin 0.4 MG Sublingual Tablet 12/23/2020 12:00:00 AM [facility] Ondansetron 8 MG Oral Tablet 08/24/2020 12:00:00 AM [facility] Prochlorperazine 10 MG Oral Tablet 08/24/2020 12:00:00 AM [facility] Baclofen 10 MG Oral Tablet 08/24/2020 12:00:00 AM [facility] Baclofen 10 MG Oral Tablet 08/24/2020 12:00:00 AM [facility] sildenafil 100 MG Oral Tablet [Viagra] 06/21/2020 [facility]:00[facility] [facility] tramadol hydrochloride 50 MG Oral Tablet 04/09/2019 12:00:00 AM [facility] gabapentin 300 MG Oral Capsule 04/08/2019 12:00:00 AM [facility] Nitroglycerin 0.4 MG Sublingual Tablet [facility]
[2021-04-22] MEDS ORDERED: LEVO500T3 PO (22:00)
[2021-04-22 23:07] LABS: BASO # 0.1 10^3/uL (0.0-0.2); BASO % 0.3 % (0.0-1.0); EOS # 0.2 10^3/uL (0.0-0.5); EOS % 0.9 % (0.0-3.0); HEMATOCRIT 36.1 % (42.0-52.0); HEMOGLOBIN 11.4 g/dl (13.5-17.5); LYMPH # 1.6 10^3/uL (1.5-5.0); LYMPH % 7.5 % (24.0-44.0); MEAN CORPUSCULAR HEMOGLOBIN 31.2 pg (27.0-33.0); MEAN CORPUSCULAR HGB CONC 31.6 g/dl (32.0-36.5); MEAN CORPUSCULAR VOLUME 98.9 fl (80.0-96.0); MONO # 2.8 10^3/uL (0.0-0.8); MONO % 13.6 % (2.0-8.0); NEUTROPHILS # 15.9 10^3/uL (1.5-8.5); NEUTROPHILS % 76.1 % (36.0-66.0); PLATELET COUNT, AUTOMATED 151 10^3/uL (150-450); RED BLOOD COUNT 3.65 10^6/uL (4.30-6.10); WHITE BLOOD COUNT 20.9 10^3/uL (4.0-10.0)
[2021-04-22 23:32] LABS: CK-MB VALUE MASS < 1.0 NG/ML (<3.6); CPK CREATINE PHOSPHOKINASE 80 U/L (39-308); MB/CK RELATIVE INDEX 1.25 (< OR =4)
--- NOTE | 2021-04-22 23:44 | REPVR ---
PROCEDURE INFORMATION: Exam: XR Chest Exam date and time: 04/22/2021 10:50 PM Age: 55 years old Clinical indication: SOB TECHNIQUE: Imaging protocol: XR of the chest. Views: 1 view. COMPARISON: CT Chest with contrast 02/15/2021 1:47 PM FINDINGS: Tubes, catheters and devices: Port-A-Cath on the right with the tip in the distal SVC. Lungs: Bilateral lower lobe infiltrates. Pleural spaces: Unremarkable. No pleural effusion. No pneumothorax. Heart/Mediastinum: Unremarkable. No cardiomegaly. Bones/joints: Unremarkable. IMPRESSION: Bilateral lower lobe infiltrates. Pulmonary edema versus pneumonia. Electronically signed by: Tariq Riojas On 04/22/2021 23:44:05 PM
[2021-04-22 23:57] LABS: BILIRUBIN,TOTAL 0.5 MG/DL (0.2-1.0); CALCIUM LEVEL 8.7 MG/DL (8.5-10.1); CREATININE FOR GFR 1.53 MG/DL (0.70-1.30); GLOMERULAR FILTRATION RATE 50.7 (>56); POTASSIUM SERUM 4.3 MEQ/L (3.5-5.1)
[2021-04-23] VITALS (7 sets, daily range): BP systolic 130–133; BP diastolic 60–63; O2SAT 92–94
[2021-04-23] MEDS ORDERED: NS 1,000 ML IV ONE ×3 (00:05→13:25)
--- OUTSIDE RECORDS SUMMARY | 2021-04-23 00:26 | CCD | Summary of Care ---
Author Author [facility] Address Unknown Phone Unavailable Care Team Providers Care Network Systems Consultant Name Role Phone Liana Pinto MD, Connor Leung PCP Encounter Details Care Team Description Date Type Department Shortness of breath 04/21/2021 [facility] Diagnostic Radiolog y Encounter [address] [place] [address] Allergies No known active allergiesdocumented as of this encounter (statuses as of 04/22/2021) Medications End Date Status Medication Sig Dispensed Refills Start Date Active atorvastatin (LIPITOR) 40 Take 40 mg by 0 06/0 7/201 MG tablet mouth every 9 morning Active lisinopril Take 5 mg by 0 (PRINIVIL,ZESTRIL) 5 MG mouth every 9 tablet morning Active aspirin (ASPIRIN LOW Chew 81 mg by 0 DOSE) 81 MG chewable Mouth every 7 tablet morning Active Nitroglycerin 0.[address] 1 90 tablet 0 12/23 Sublingual Tablet tablet under 1 Sublingual (NITROSTAT) the tongue every 5 (five) minutes as needed for Chest pain 05/01/2021 Active levoFLOXacin 500 MG Oral Take 1 tablet 10 tablet 0 Tablet (Levaquin) by mouth 1 daily for 10 days documented as of this encounter (statuses as of 04/22/2021) Active Problems Problem Noted Date Encounter for [...] as of this encounter (statuses as of 04/22/2021) Resolved Problems Problem Noted Date Resolved Date Counseling on substance use and abuse 01/16/2017 04/06/2019 Status post percutaneous transluminal coronary angioplasty 10/11/2016 04/06/2019 Tobacco user 10/11/2016 04/06/2019 Acute IA, inferior wall 09/23/2016 04/06/2019 documented as of this encounter (statuses as of 04/22/2021) Social History Date Tobacco Use Types Packs/Day Years Used Light Tobacco Smoker Cigarettes 0.12 30 Smokeless Tobacco: Never Used Comments: occasionally smokes (had 3-4 c igarettes since november) Comments Alcohol Use Standard Drinks/Week every two weeks Yes 3 (1 standard drink = 0.6 o z pure alcohol) Alcohol Habits Answer Date Recorded How often do you have a drink containing alcohol? No t asked How many drinks containing alcohol do you have on No t asked a typical day when you are drinking? How often do you have six or more drinks on one Not asked occasion? Comment: every two weeks 08/26/2020 Sex Assigned at Date Recorded Not on file Date Recorded COVID-19 Exposure Response 04/21/2021 12:12 PM EST In the last month, have you been in contact with No / Unsure someone who was confirmed or suspected to have Coronavirus / COVID-19? documented as of this encounter Last Filed Vital Signs Not on filedocumented in this encounter Plan of Treatment Care Team Description Date Type Specialty 04/25/2021 Hospital Radiology Encounter Cynthia Moody MD [address] [place] [address] [email or web address] 04/28/2021 Office Visit Hematology and Onco logy Health Maintenance Due Date Last Done Comments Dental Prophylaxis 1966 MMR Vaccines (1 of 1 - 12/10/1967 Standard series) Varicella Vaccines (1 of 12/10/1967 2 - 2-dose childhood series) Pneumococcal Vaccine: 1972 Pediatrics (0 to 5 Years) and At-Risk Patients (6 to 64 Years) (1 of 4 - PCV13) DTaP,Tdap,and Td Vaccines 1973 (1 - Tdap) COVID-19 Vaccine (1) 1978 HIV Screening 12/10/1979 Colon Cancer Screening 10 2016 yrs Zoster Vaccines (1 of 2) 2016 Influenza Vaccine 03/03/2021 Dental Oral Exam 03/24/2021 [...] Procedure Name Priority Date/Time Associated Diag nosis XR CHEST FRONTAL AND STAT 04/21/2021 Shortness of breath LATERAL [id number] 12:21 PM EST documented in this encounter Results * XR Chest Frontal and Lateral (04/21/2021 12:21 PM EST) Modality Anatomical Region Laterality Computed Radiography Chest Specimen Narrative [facility] - 04/21/2021 3:29 PM EST PROCEDURE INFORMATION: Exam: XR Chest Exam date and [...] spaces: Unremarkable. No pleural effusion. No pneumothorax. Heart/Mediastinum: Unremarkable. No cardiomegaly. Bones/joints: Unremarkable. IMPRESSION: Nonacute findings. THIS DOCUMENT HAS BEEN ELECTRONICALLY SIGNED BY ROBB DIAZ MD Procedure Note Robb Diaz MD - 04/21/2021 PROCEDURE INFORMATION: Exam: XR Chest Exam date and [...] spaces: Unremarkable. No pleural effusion. No pneumothorax. Heart/Mediastinum: Unremarkable. No cardiomegaly. Bones/joints: Unremarkable. IMPRESSION: Nonacute findings. THIS DOCUMENT HAS BEEN ELECTRONICALLY SIGNED BY ROBB DIAZ MD Performing Organization Address City/State/ZIP Code P teresita Number [facility] [address] [place] [address] documented in this encounter Visit Diagnoses Diagnosis Shortness of breath documented in this encounter Care Teams Start Date End Date Network Systems Consultant Relationship Specialty 02/24/21 Connor Gaines Jr., PCP - General Internal MD Medicine [phone] [address] documented as of this encounter
--- OUTSIDE RECORDS SUMMARY | 2021-04-23 00:29 | CCD ---
Author Author [facility] Organization [facility] Address Unknown Phone Unavailable Care Team Providers Care Metal Refiner Name Role Phone ED, TEST DEFAULT Unavailable [...] Unavailable SYMENOW, G CHRISTOPHER PA Unavailable Unavailable Church, Geovanna Unavailable Unavailable ARISTIDESOMAIRA CAREYEN Unavailable Unavailable Omlor, E Ismael Unavailable Omlor, E Ismael Unavailable Omlor, E Ismael Unavailable [place], Christopher DO Unavailable Unavailable Liana, Christopher DO Unavailable Unavailable [place], Christopher DO Unavailable Unavailable Liana, Christopher DO Unavailable Unavailable Liana, Christopher DO Unavailable Unavailable [place], Christopher DO Unavailable Unavailable [place], Christopher DO Unavailable Unavailable Liana, Christopher DO Unavailable Unavailable Liana, Christopher DO Unavailable Unavailable [place], Christopher DO Unavailable Unavailable BASINET, OJHN Unavailable Unavailable O'TRE, L ROSALES Unavailable Unavailable [...] Ballard MD Unavailable Unavailable SENSKA, C KALPANA BUMPER AND PAINTER Unavailable Unavailable SENSKA, C KALPANA BUMPER AND PAINTER Unavailable Unavailable SENSKA, C KALPANA BUMPER AND PAINTER Unavailable Unavailable SENSKA, C KALPANA BUMPER AND PAINTER Unavailable Unavailable SENSKA, C KALPANA BUMPER AND PAINTER Unavailable Unavailable SENSKA, C KALPANA BUMPER AND PAINTER Unavailable Unavailable SENSKA, C KALPANA BUMPER AND PAINTER Unavailable Unavailable SENSKA, C KALPANA BUMPER AND PAINTER Unavailable Unavailable SENSKA, C KALPANA BUMPER AND PAINTER Unavailable Unavailable SENSKA, C KALPANA BUMPER AND PAINTER Unavailable Unavailable SENSKA, C KALPANA BUMPER AND PAINTER Unavailable Unavailable SENSKA, C KALPANA BUMPER AND PAINTER Unavailable Unavailable SENSKA, C KALPANA BUMPER AND PAINTER Unavailable Unavailable SENSKA, C KALPANA BUMPER AND PAINTER Unavailable Unavailable SENSKA, C KALPANA BUMPER AND PAINTER Unavailable Unavailable PASNICIUC, Fox LOVE MD Unavailable [...] is protected by Article 27-F of the [facility] Public Health law. If you continue you may have access to information: Regarding HIV / AIDS; Provided by facilities licensed or operated by the [facility] Office of Mental Health; or Provided by the [facility] Office for People With Developmental Disabilities. If such information is present, then the following [facility] mandated warning applies: This information has [...] law may result in a fine or senior living sentence or both. A general authorization for the release of medical or other information is NOT sufficient authorization for further disc losure. 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 [place] Outpatient Referrer: ISMAEL ANAND 04/21/2021 12:00:0 0 AM EST Shortness of breath [facility] Shortness of breath Outpatient Referrer: John Moody MD 04/21/2021 12:0 0:00 AM [facility] Shortness of breath [facility] Shortness of breath Admission cancelled. Disregard status an d admitted date. Outpatient Attender: John Moody MD 04/21/2021 12:00:00 A M [facility] Outpatient Attender: Eli Casper RPA-CReferrer: Miquel Ballard MD EMERGENCY ROOM- [facility] 04/18/2021 12:08:00 PM [facility] - 04/18/2021 12:08:00 PM [facility] Outpatient Attender: OBDULIA Scruggsender: DEFAULT ED 04/07/2021 12:00:00 AM [facility] Outpatient Attender: Ismael Singleton er: ISMAEL Haqender: John Moody MD [id number] 03/24/2021 12:00:00 AM EDT - 03/24/2021 04:03:26 PM [facility] Outpatient Attender: YUE Wilkinsender: DEFAULT ED 03/10/2021 12:00:00 AM [facility] Outpatient Attender: John Moody MD Dinesh-ONCCACTR 2020 12:00:00 AM EDT - 02/24/2021 03:00:29 PM [facility] Outpatient Attender: John Moody MD 02/03/2021 12:00:00 A M [facility] Outpatient Attender: KATE RIVERA MD 01/31/2021 12:00: 00 AM [facility] Outpatient Attender: Mohit Pro [facility] Attender: KALPANA WASHINGTON NP [id number] 2020 12:00:00 AM EDT - 01/20/2021 03:31:51 PM [facility] Outpatient Attender: KATE RIVERA MD 01/17/2021 12:00: 00 AM [facility] Outpatient Attender: John Arango-ONCCACTR 2020 12:00:00 AM EDT - 01/06/2021 03:48:12 PM [facility] Outpatient Attender: KATE RIVERA MD 01/03/2021 12:00: 00 AM [facility] Outpatient Attender: KATE RIVERA MD 12/27/2020 12:00: 00 AM [facility] Outpatient Attender: KALPANA WASHINGTON NP A-ONCCACTR 2020 12:00:00 AM EDT - 12/23/2020 03:52:43 PM [facility] Outpatient Attender: John Moody MD A-ONCCACTR 2020 12:00:00 AM EDT - 2020 04:13:08 PM [facility] Outpatient Attender: John Moody MD [id number] 2020 12:00:00 AM EDT - 11/23/2020 03:41:13 PM [facility] Outpatient Attender: John Moody MD [id number] 2020 12:00:00 AM EDT - 11/09/2020 03:34:08 PM EDT 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 Outpatient Attender: John Moody MD 11/02/2020 12:00:00 A M [facility] Outpatient Attender: John Moody MD 07Dinesh-ONCCACTR 2020 12:00:00 AM EDT - 10/26/2020 12:42:56 PM EDT 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 Outpatient Attender: John Moody MD 10/19/2020 12:00:00 A M [facility] Outpatient Attender: John Moody MD 10/05/2020 12:00:00 A M [facility] Outpatient Attender: Geovanna CheungReferrer: John HughesA-DENUHC 09/22/2020 12:00:00 AM EDT - 09/22/2020 12:34:58 PM EDT Encounter for dental examination and cleaning without abnormal findings [facility] Encounter for dental examination and wally aning without abnormal findings Outpatient Attender: John Moody MD [id number] 2020 12:00:00 AM EDT - 09/21/2020 03:26:20 PM EDT 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 Outpatient Attender: KATE RIVERA MDReferrer: Dinesh Casper RPA-C [id number] 09/21/2020 12:00:00 AM EDT Encounter for palliative care [facility] Encounter for palliative care Outpatient Attender: John Moody MD 09/07/2020 12:00:00 A M [facility] Outpatient Attender: Eli CARROLLC 07A-ONCCACTR 0 09/06/2020 12:00:00 AM EDT - 09/06/2020 03:11:35 PM EDT 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 Outpatient Attender: John Moody MD 06/24/2020 12:00:00 A M [facility] Outpatient Attender: John HughesA-ONCCACTR 2020 12:00:00 AM EST - 06/27/2020 08:40:05 AM EST 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 Outpatient [address] [facility] [id number] 06/21/2020 12:00:00 AM EST eCW1 ([facility]) Outpatient Attender: Eli Arango-ONCCACTEliane 1 12:00:00 AM EST - 06/01/2020 03:54:45 PM EST 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 Outpatient Attender: John Moody MDAdmitter: John Arango-ONCCACTR 05/13/2020 12:00:00 AM EST - 05/13/2020 03:12:44 PM EST 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 Outpatient Attender: John Arango-ONCCACTR 2019 12:00:00 AM EST - 04/22/2020 04:00:03 PM EST 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 Outpatient Attender: John Arango-ONCCACTR 2019 12:00:00 AM EDT - 04/01/2020 03:21:22 PM EDT 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 Outpatient Attender: John Arango-ONCCACTEliane 2019 12:00:00 AM EDT - 03/11/2020 02:49:47 PM EDT 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 Medications Medication Brand Name Start Date Product Form Dose Route Admi nistrative Instructions Pharmacy Instructions Status Indications Reaction Description Data Source(s) Levofloxacin 500 MG Oral Tablet levoFLOXacin 500 MG Or al Tablet (Levaquin) levoFLOXacin 500 MG Oral Tablet (Levaquin) 04/21/2021 12:00:00 AM EST 500 mg Oral active Take 1 tablet by prudencio th daily for 10 days [facility] atorvastatin 40 MG Oral Tablet Atorvastatin Calcium 01/25/2021 1 2:00:00 AM EDT ORAL active MEDENT ( [facility]) Lisinopril 5 MG Oral Tablet Lisinopril 01/25/2021 12:00:00 AM EDT ORAL active [facility] ([facility]) Aspirin 81 MG Chewable Tablet Aspirin 81 Low Dose 01/25/2021 12:00: 00 AM EDT ORAL active [facility] ([facility]) Calcium Carbonate 1500 MG / Cholecalciferol 800 UNT Oral Tab let Calcium + D3 01/25/2021 12:00:00 AM EDT active [facility] ([facility]) CARBOplatin (PARAPLATIN) 291 mg in sodium chloride 0.9 % robin mo infusion 01/20/2021 11:15:00 AM EDT 290.7 mg Intravenous c ompleted 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
Hazardous drug. Follow precautions. Dispose of properly.
[facility] Malignant neoplasm of anterior wall [...] Sat01/20/21 at 1045, For 1 dose
Irritant
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
Give 30 minutes prior to chemo.
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
Give prior to chemotherapy.
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
Give prior to chemotherapy
[facility] Malignant neoplasm of anterior wall of u rinary bladder Medication administered onsite 1.7 ML denosumab 70 MG/ML Injection denosumab (XGEVA) injection 120 mg denosumab (XGEVA) injection 120 mg 01/20/2021 09:45:00 AM EDT 120 mg Subcutan eous completed 120 mg, Subcutaneous, Once, On 01/20/21 at 0945, For 1 dose [facility] Medication administered onsite CARBOplatin (PARAPLATIN) [...]
Hazardous drug. Follow precautions. Dispose of properly.
[facility] Malignant neoplasm of anterior wall [...] Sat01/06/21 at 1130, For 1 dose
Irritant
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
Give prior to chemotherapy.
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
Give 30 minutes prior to chemo.
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
Give prior to chemotherapy
[facility] Malignant neoplasm of anterior wall [...]
Hazardous drug. Follow precautions. Dispose of properly.
[facility] Malignant neoplasm of anterior wall [...] Sat12/23/20 at 0930, For 1 dose
Irritant
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
Give 30 minutes prior to chemo.
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
Give prior to chemotherapy.
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
Give prior to chemotherapy
[facility] Malignant neoplasm of anterior wall of u rinary bladder Medication administered onsite Nitroglycerin 0.4 MG Sublingual Tablet N itroglycerin 0.4 MG Sublingual Tablet Sublingual (NITROSTAT) Nitroglycerin 0.4 MG Sublingual Tablet S ublingual (NITROSTAT) 12/23/2020 12:00:00 AM EDT 0.4 mg Sublingual ac tive Place 1 tablet under the tongue every 5 (five) minutes as needed for Chest pain [facility] 0.4 mg 12/23/2020 12:00:00 AM [...]
Hazardous drug. Follow precautions. Dispose of properly.
[facility] Malignant neoplasm of anterior wall [...] Sat12/09/20 at 1015, For 1 dose
Irritant
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
Give prior to chemotherapy
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
Give prior to chemotherapy.
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
Give 30 minutes prior to chemo.
[facility] Malignant neoplasm of anterior wall [...]
Hazardous drug. Follow precautions. Dispose of properly.
[facility] Malignant neoplasm of anterior wall [...] Sat11/23/20 at 1015, For 1 dose
Irritant
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
Give 30 minutes prior to chemo.
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
Give prior to chemotherapy.
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
Give prior to chemotherapy
[facility] Malignant neoplasm of anterior wall [...]
Hazardous drug. Follow precautions. Dispose of properly.
[facility] Malignant neoplasm of anterior wall [...] Sat11/09/20 at 1030, For 1 dose
Irritant
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
Give prior to chemotherapy.
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
Give 30 minutes prior to chemo.
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
Give prior to chemotherapy
[facility] Malignant neoplasm of anterior wall [...]
Hazardous drug. Follow precautions. Dispose of properly.
[facility] Malignant neoplasm of anterior wall [...] Sat10/26/20 at 1045, For 1 dose
Irritant
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
Give 30 minutes prior to chemo.
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
Give prior to chemotherapy.
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
Give prior to chemotherapy
[facility] Malignant neoplasm of anterior wall of u rinary bladder Medication administered onsite alteplase (CATHFLO) injection 2 mg [id number] 10/26/2020 08:45:00 AM EDT 2 mg Intracatheter completed 2 mg, Intra catheter, Once, On Sat10/26/20 at 0845, For 1 dose
To be instilled by PICC team or IR nurse only for at least 30 minutes
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
Hazardous drug. Follow precautions. Dispose of properly.
[facility] Malignant neoplasm of anterior wall [...] Sat09/21/20 at 1030, For 1 dose
Irritant
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
Give 30 minutes prior to chemo.
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
Give prior to chemotherapy.
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
Give prior to chemotherapy
[facility] Malignant neoplasm of anterior wall [...]
Hazardous drug. Follow precautions. Dispose of properly.
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
Irritant
[facility] Malignant neoplasm of anterior wall of u rinary bladder Medication administered onsite sodium chloride 0.9 % bolus 1,000 mL [id number] 09/06/2020 09:30: 00 AM EDT 1000 mL Intravenous completed Malignant neopl asm of anterior wall of urinary bladder 1,000 mL, Intravenous, Once, 09/06/20 at 0930, For 1 dose
667 cc/hr
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
Give prior to chemotherapy
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
Give 30 minutes prior to chemo.
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
Give prior to chemotherapy.
[facility] Malignant neoplasm of anterior wall [...]
Hazardous drug. Follow precautions. Dispose of properly.
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
Irritant
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
Give 30 minutes prior to chemo.
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
Give prior to chemotherapy
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
Give prior to chemotherapy.
[facility] Malignant neoplasm of anterior wall of u rinary bladder Medication administered onsite sodium chloride 0.9 % bolus 1,000 mL [id number] 08/24/2020 11:15: 00 AM EDT 1000 mL Intravenous completed Malignant neopl asm of anterior wall of urinary bladder 1,000 mL, Intravenous, at 66 7 mL/hr, Once, Sat08/24/20 at 1115, For 1 dose
667 cc/hr
[facility] Malignant neoplasm of anterior wall [...] hours as needed for Nausea or Vomiting [facility] Malignant neoplasm of anterior wall of u rinary bladder Prochlorperazine 10 MG Oral Tablet Proch lorperazine Maleate 10 MG Oral Tablet (COMPAZINE) Prochlorperazine Maleate 10 MG Oral Tablet (COMPAZINE) 08/24/2020 12:00:00 AM EDT 10 mg Oral active Mireya gnant neoplasm of anterior wall of urinary bladder Take 1 tablet by mouth every 6 (six) hours as needed (Nausea/Vomiting) [facility] Malignant neoplasm of anterior wall of u rinary bladder Baclofen 10 MG Oral Tablet Baclofen 10 MG Oral Tablet (LIORESAL) Baclofen 10 MG Oral Tablet (LIORESAL) 08/24/2020 12:00:00 AM EDT 10 mg Oral aborted Take 1 tablet by mouth Three times daily PRN for hiccups [facility] Baclofen 10 MG Oral Tablet Baclofen 10 MG Oral Tablet (LIORESAL) Baclofen 10 MG Oral Tablet (LIORESAL) 08/24/2020 12:00:00 AM EDT 10 mg Oral completed Take 1 tablet by mouth Three times daily PRN for hiccu ps [facility] 100 mg 06/23/2020 12:00:00 AM EST tablet 6 TAKE ONE TABLET BY MOUTH ONCE DAILY NEEDED TAKE ONE TABLET BY MOUTH ONCE DAILY NEEDED SOLD: 06/26/19 [facility] sildenafil 100 MG Oral Tablet [Viagra] Viagra 100 MG Viagra 100 MG 06/21/2020 12:00:00 AM EST 1.0 {tablet_as_needed} active Viagra 100 MG eC1 ([facility]) sodium chloride 0.9 % 50 mL with alliance [id number] [id number] pembrolizumab 200 mg 06/01/2020 03:00:00 PM EST Intravenous c ompleted 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
Infuse via 0.2 micron filter. Line primed with drug
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
Infuse via 0.2 micron filter. Line primed with drug. Set pump vol at 25 ml, then flush with NS at same rate to empty line.
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
Infuse via 0.2 micron filter. Line primed with drug
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
Infuse via 0.2 micron filter. Line primed with drug. No kaitlyn or adapters
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
Infuse via 0.2 micron filter. Line primed with drug
[facility] Malignant neoplasm of anterior wall [...] as needed for pain. MDD: 400 mg [facility] gabapentin 300 MG Oral Capsule Gabapentin 300 MG Oral Capsule (NEURONTIN) Gabapentin 300 MG Oral Capsule (NEURONTIN) 04/08/2019 12:00:00 AM EST 300 mg Oral aborted Take 1 capsule by butch fleming Three times daily for 5 days [facility] Nitroglycerin 0.4 MG Sublingual Tablet n itroglycerin (NITROSTAT) 0.4 MG SL tablet nitroglycerin (NITROSTAT) 0.4 MG SL tablet 0.[address] 0.4 mg under t he tongue every 5 (five) minutes as needed for Chest pain [facility] Insurance Providers Payer name Policy type / Coverage type Policy ID Covered republican ID Covered republican's relationship to gamboa Policy [place] Plan Information [employer] [employer] MEDICAID [id number] S [id number] [employer] MEDICAID [id number] Shari 7 [id number] [facility] CARE COMMERCIAL [id number] S [id number] [facility] MEDICAID [id number] S [id number] [facility] [id number] Self [id number] MEDARDO [id number] SP [id number] 200 [facility] [id number] SP [id number] [facility] [id number] SP [id number] ANSI-Commercial [id number] ANSI-Commercial [id number] ANSI-Commercial [id number] ANSI-Commercial [id number] ANSI-Commercial [id number] ANSI-Commercial [id number] [place] - Medicaid [facility] ([facility]) [facility] [id number] Self [id number] [place] - Medicaid [facility] (O) [facility] [id number] Self [id number] ANSI-Commercial [id number] [facility] CARE MEDICAID [id number] S [id number] [facility] CARE MEDICAID MCD HMO [id number] S [id number] SELF PAY SP UNAVAILABLE S UNAVAILA BLE [place] Medicaid [facility] Health Maintenance Organization (O) [facility] [id number] Self [id number] [place] Medicaid [facility] Health Maintenance Organization ([facility]) [facility] [id number] Self [id number] SELF PAY ONLY [id number] SP [id number] SELF PAY UNAVAILABLE SP UNAVAILA BLE [facility] FIN[employer]CIAL PF UNAVAILABLE S UNAVAILABLE [facility] CARE MEDICAID [id number] S [id number] [place] [id number] S [id number] MEDARDO [id number] SP [id number] [place] [id number] SP [id number] ANSI-Commercial [id number] ANSI-Commercial [id number] ANSI-Commercial [id number] Problems, Conditions, and Diagnoses Code Display Name Description Problem Type Effective Dates Data Source(s) R06.02 Shortness of breath Shortness of breath Diagnosis 1 06/21/2020 12:00:00 AM [facility] 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 MALIGNANT NEOPLASM OF ANTERIOR WALL OF B Diagnosis 04/18/2021 12:08:00 PM [facility] Z01.20 Encounter for dental examination and wally aning without abnormal findings Encounter for dental examination and cleaning without abnormal findings Diagnosis 09/22/2020 10:54:27 AM [facility] Z51.5 Encounter for palliative care Encounter for palliative care Diagnosis 09/21/2020 12:02:54 PM [facility] fol fol Diagnosis 08/26/2020 10:54:38 AM ED [facility] C67.9 Malignant tumor of urinary bladder Malignant elise or of urinary bladder Problem 01/25/2021 12:00:00 AM EDT [facility] ([facility]) H11.002 Pterygium Pterygium Problem 01/25/2021 12:00:00 AM ED T [facility] ([facility]) I25.10 Coronary arteriosclerosis Coronary arteriosclerosis Pr oblem 01/25/2021 12:00:00 AM EDT [facility] ([facility]) Z90.6 History of total cystectomy History of total cystectom y Problem 01/25/2021 12:00:00 AM EDT [facility] ([facility]) 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 Problem 06/21/2020 12:00:00 AM EST eCW1 ([facility]) Surgeries/Procedures Procedure Description Date Indications Data Source(s) XR CHEST FRONTAL AND LATERAL 64644 <td>XR CHEST FRONTA L AND LATERAL 89643</td><td>STAT</td><td>04/21/2021 12:21 PM EST</td><td> Shortness of breath</td><td> </td> 04/21/2021 12:21:00 PM EST Shortness of breath [facility] Shortness of breath ECG ROUTINE ECG W/LEAST 12 LDS W/I&R 01/25/2021 12:00: 00 AM EDT [facility] ([facility]) INITIAL PREVENTIVE MEDICINE NEW PATIENT 40-64YRS 01/25 12:00:00 AM EDT [facility] ([facility]) BLOOD COUNT COMPLETE AUTO&AUTO DIFRNTL WBC COUNT <td>C BC AND DIFFERENTIAL</td><td>Routine</td><td>01/20/2021 9:10 AM EDT</td><td> 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</td><td> </td> 01/20/2021 09:10:00 AM EDT 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 [facility] Malignant neoplasm of anterior wall of u rinary bladder COMPREHENSIVE METABOLIC PANEL <td>COMPREHENSIVE METABO LIC PANEL</td><td>STAT</td><td>01/20/2021 9:10 AM EDT</td><td> 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</td><td> </td> 01/20/2021 09:10:00 AM EDT 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 [facility] Malignant neoplasm of anterior wall of u rinary bladder BLOOD COUNT COMPLETE AUTO&AUTO DIFRNTL WBC COUNT <td>C BC AND DIFFERENTIAL</td><td>Routine</td><td>01/06/2021 9:10 AM EDT</td><td> 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</td><td> </td> 01/06/2021 09:10:00 AM EDT 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 [facility] Malignant neoplasm of anterior wall of u rinary bladder BLOOD TYPING ABO <td>TYPE AND SCREEN</td><td> Routine</td><td>01/06/2021 9:10 AM EDT</td><td></td><td> </td> 01/06/2021 09:10:00 AM EDT [facility] COMPREHENSIVE METABOLIC PANEL <td>COMPREHENSIVE METABO LIC PANEL</td><td>STAT</td><td>01/06/2021 9:10 AM EDT</td><td> 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</td><td> </td> 01/06/2021 09:10:00 AM EDT Malignant 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 [facility] Malignant neoplasm of anterior wall of u rinary bladder BLOOD COUNT COMPLETE AUTO&AUTO DIFRNTL WBC COUNT <td>C BC AND DIFFERENTIAL</td><td>Routine</td><td>12/23/2020 8:15 AM EDT</td><td> 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</td><td> </td> 12/23/2020 08:15:00 AM EDT 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 [facility] Malignant neoplasm of anterior wall of u rinary bladder COMPREHENSIVE METABOLIC PANEL <td>COMPREHENSIVE METABO LIC PANEL</td><td>STAT</td><td>12/23/2020 8:15 AM EDT</td><td> 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</td><td> </td> 12/23/2020 08:15:00 AM EDT 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 [facility] Malignant neoplasm of anterior wall of u rinary bladder BLOOD COUNT COMPLETE AUTO&AUTO DIFRNTL WBC COUNT <td>C BC AND DIFFERENTIAL</td><td>Routine</td><td>2020 8:23 AM EDT</td><td> 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</td><td> </td> 2020 08:23:00 AM EDT Malignant neoplasm of anterior wall of urinary bladder [facility] Malignant neoplasm of anterior wall of u rinary bladder COMPREHENSIVE METABOLIC PANEL <td>COMPREHENSIVE METABO LIC PANEL</td><td>STAT</td><td>2020 8:23 AM EDT</td><td> 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</td><td> </td> 2020 08:23:00 AM EDT 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 [facility] Malignant neoplasm of anterior wall of u rinary bladder BLOOD COUNT COMPLETE AUTO&AUTO DIFRNTL WBC COUNT <td>C BC AND DIFFERENTIAL</td><td>Routine</td><td>11/23/2020 8:30 AM EDT</td><td> 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</td><td> </td> 11/23/2020 08:30:00 AM EDT 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 [facility] Malignant neoplasm of anterior wall of u rinary bladder COMPREHENSIVE METABOLIC PANEL <td>COMPREHENSIVE METABO LIC PANEL</td><td>STAT</td><td>11/23/2020 8:30 AM EDT</td><td> 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</td><td> </td> 11/23/2020 08:30:00 AM EDT 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 [facility] Malignant neoplasm of anterior wall of u rinary bladder BLOOD COUNT COMPLETE AUTO&AUTO DIFRNTL WBC COUNT <td>C BC AND DIFFERENTIAL</td><td>Routine</td><td>11/09/2020 8:20 AM EDT</td><td> 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</td><td> </td> 11/09/2020 08:20:00 AM EDT 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 [facility] Malignant neoplasm of anterior wall of u rinary bladder COMPREHENSIVE METABOLIC PANEL <td>COMPREHENSIVE METABO LIC PANEL</td><td>STAT</td><td>11/09/2020 8:20 AM EDT</td><td> 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</td><td> </td> 11/09/2020 08:20:00 AM EDT 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 [facility] Malignant neoplasm of anterior wall of u rinary bladder BLOOD COUNT COMPLETE AUTO&AUTO DIFRNTL WBC COUNT <td>C BC AND DIFFERENTIAL</td><td>Routine</td><td>10/26/2020 8:15 AM EDT</td><td> 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</td><td> </td> 10/26/2020 08:15:00 AM EDT Malignant 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 [facility] Malignant neoplasm of anterior wall of u rinary bladder COMPREHENSIVE METABOLIC PANEL <td>COMPREHENSIVE METABO LIC PANEL</td><td>STAT</td><td>10/26/2020 8:15 AM EDT</td><td> 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</td><td> </td> 10/26/2020 08:15:00 AM EDT 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 [facility] Malignant neoplasm of anterior wall of u rinary bladder OR DENTAL PANORAMIC FILM <td>OR DENTAL PANORAMIC FILM</td><td>Routine</td><td>09/22/2020 11:00 AM EDT</td><td> Encounter for dental examination Malignant neoplasm of urinary bladder, unspecified site</td><td></td> 09/22/2020 11:00:00 AM EDT Malignant neoplasm of urinary bladder, u nspecified siteEncounter for dental examination [facility] Malignant neoplasm of urinary bladder, u nspecified site Encounter for dental examination OR DENTAL BITEWINGS FOUR FILMS <td>OR DENTAL BITEWINGS FOUR FILMS</td><td>Routine</td><td>09/22/2020 11:00 AM EDT</td><td> Encounter for dental examination Malignant neoplasm of urinary bladder, unspecified site</td><td></td> 09/22/2020 11:00:00 AM EDT Malignant neoplasm of urinary bladder, u nspecified siteEncounter for dental examination [facility] Malignant neoplasm of urinary bladder, u nspecified site Encounter for dental examination 27 OR INTRAORAL PERIAPICAL EA ADD <td>27 OR INTRAORAL PERIAPICAL EA ADD</td><td>Routine</td><td>09/22/2020 11:00 AM EDT</td><td> Encounter for dental examination Malignant neoplasm of urinary bladder, unspecified site</td><td></td> 09/22/2020 11:00:00 AM EDT Malignant neoplasm of urinary bladder, u nspecified siteEncounter for dental examination [facility] Malignant neoplasm of urinary bladder, u nspecified site Encounter for dental examination 25 OR INTRAORAL PERIAPICAL EA ADD <td>25 OR INTRAORAL PERIAPICAL EA ADD</td><td>Routine</td><td>09/22/2020 11:00 AM EDT</td><td> Encounter for dental examination Malignant neoplasm of urinary bladder, unspecified site</td><td></td> 09/22/2020 11:00:00 AM EDT Malignant neoplasm of urinary bladder, u nspecified siteEncounter for dental examination [facility] Malignant neoplasm of urinary bladder, u nspecified site Encounter for dental examination 11 OR INTRAORAL PERIAPICAL EA ADD <td>11 OR INTRAORAL PERIAPICAL EA ADD</td><td>Routine</td><td>09/22/2020 11:00 AM EDT</td><td> Encounter for dental examination Malignant neoplasm of urinary bladder, unspecified site</td><td></td> 09/22/2020 11:00:00 AM EDT Malignant neoplasm of urinary bladder, u nspecified siteEncounter for dental examination [facility] Malignant neoplasm of urinary bladder, u nspecified site Encounter for dental examination 7 OR INTRAORAL PERIAPICAL EA ADD <td>7 OR INTRAORAL PE RIAPICAL EA ADD</td><td>Routine</td><td>09/22/2020 11:00 AM EDT</td><td> Encounter for dental examination Malignant neoplasm of urinary bladder, unspecified site</td><td></td> 09/22/2020 11:00:00 AM EDT Malignant neoplasm of urinary bladder, u nspecified siteEncounter for dental examination [facility] Malignant neoplasm of urinary bladder, u nspecified site Encounter for dental examination 23 OR INTRAORAL PERIAPICAL FIRST F <td>23 OR INTRAORAL PERIAPICAL FIRST F</td><td>Routine</td><td>09/22/2020 11:00 AM EDT</td><td> Encounter for dental examination Malignant neoplasm of urinary bladder, unspecified site</td><td></td> 09/22/2020 11:00:00 AM EDT Malignant neoplasm of urinary bladder, u nspecified siteEncounter for dental examination [facility] Malignant neoplasm of urinary bladder, u nspecified site Encounter for dental examination 8 OR INTRAORAL PERIAPICAL FIRST F <td>8 OR INTRAORAL P ERIAPICAL FIRST F</td><td>Routine</td><td>09/22/2020 11:00 AM EDT</td><td> Encounter for dental examination Malignant neoplasm of urinary bladder, unspecified site</td><td></td> 09/22/2020 11:00:00 AM EDT Malignant neoplasm of urinary bladder, u nspecified siteEncounter for dental examination [facility] Malignant neoplasm of urinary bladder, u nspecified site Encounter for dental examination OR COMPREHENSVE ORAL EVALUATION <td>OR COMPREHENSVE OR AL EVALUATION</td><td>Routine</td><td>09/22/2020 11:00 AM EDT</td><td> Encounter for dental examination Malignant neoplasm of urinary bladder, unspecified site</td><td></td> 09/22/2020 11:00:00 AM EDT Malignant neoplasm of urinary bladder, u nspecified siteEncounter for dental examination [facility] Malignant neoplasm of urinary bladder, u nspecified site Encounter for dental examination 15 PORCELAIN CROWN (GENERIC) <td>15 PORCELAIN CROWN (GENERIC)</td><td>Routine</td><td>09/22/2020 12:00 AM EDT</td><td></td><td></td> 09/22/2020 12:00:00 AM EDT [facility] 15 ROOT CANAL (GENERIC) <td>15 ROOT CANAL (GENERIC)</td><td>Routine</td><td>09/22/2020 12:00 AM EDT</td><td></td><td></td> 09/22/2020 12:00:00 AM EDT [facility] BLOOD COUNT COMPLETE AUTO&AUTO DIFRNTL WBC COUNT <td>C BC AND DIFFERENTIAL</td><td>Routine</td><td>09/21/2020 8:35 AM EDT</td><td> Malignant neoplasm of anterior wall of urinary bladder</td><td> </td> 09/21/2020 08:35:00 AM EDT Malignant neoplasm of anterior wall of urinary bladder [facility] Malignant neoplasm of anterior wall of u rinary bladder COMPREHENSIVE METABOLIC PANEL <td>COMPREHENSIVE METABO LIC PANEL</td><td>STAT</td><td>09/21/2020 8:35 AM EDT</td><td> Malignant neoplasm of anterior wall of urinary bladder</td><td> </td> 09/21/2020 08:35:00 AM EDT Malignant neoplasm of anterior wall of urinary bladder [facility] Malignant neoplasm of anterior wall of u rinary bladder BLOOD COUNT COMPLETE AUTO&AUTO DIFRNTL WBC COUNT <td>C BC AND DIFFERENTIAL</td><td>Routine</td><td>09/06/2020 8:12 AM EDT</td><td> Malignant neoplasm of anterior wall of urinary bladder</td><td> </td> 09/06/2020 08:12:00 AM EDT Malignant neoplasm of anterior wall of urinary bladder [facility] Malignant neoplasm of anterior wall of u rinary bladder COMPREHENSIVE METABOLIC PANEL <td>COMPREHENSIVE METABO LIC PANEL</td><td>STAT</td><td>09/06/2020 8:12 AM EDT</td><td> Malignant neoplasm of anterior wall of urinary bladder</td><td> </td> 09/06/2020 08:12:00 AM EDT Malignant neoplasm of anterior wall of urinary bladder [facility] Malignant neoplasm of anterior wall of u rinary bladder BLOOD COUNT COMPLETE AUTO&AUTO DIFRNTL WBC COUNT <td>C BC AND DIFFERENTIAL</td><td>Routine</td><td>08/24/2020 8:50 AM EDT</td><td> Malignant neoplasm of anterior wall of urinary bladder</td><td> </td> 08/24/2020 08:50:00 AM EDT Malignant neoplasm of anterior wall of urinary bladder [facility] Malignant neoplasm of anterior wall of u rinary bladder COMPREHENSIVE METABOLIC PANEL <td>COMPREHENSIVE METABO LIC PANEL</td><td>STAT</td><td>08/24/2020 8:50 AM EDT</td><td> Malignant neoplasm of anterior wall of urinary bladder</td><td> </td> 08/24/2020 08:50:00 AM EDT Malignant neoplasm of anterior wall of urinary bladder [facility] Malignant neoplasm of anterior wall of u rinary bladder BLOOD COUNT COMPLETE AUTO&AUTO DIFRNTL WBC COUNT <td>C BC AND DIFFERENTIAL</td><td>STAT</td><td>06/01/2020 1:57 PM EST</td><td> Malignant neoplasm of anterior wall of urinary bladder</td><td> </td> 06/01/2020 01:57:00 PM EST Malignant neoplasm of anterior wall of urinary bladder [facility] Malignant neoplasm of anterior wall of u rinary bladder THYROID STIMULATING HORMONE TSH <td>TSH</td><td>Routin e</td><td>06/01/2020 1:57 PM EST</td><td> Malignant neoplasm of anterior wall of urinary bladder</td><td> </td> 06/01/2020 01:57:00 PM EST Malignant neoplasm of anterior wall of urinary bladder [facility] Malignant neoplasm of anterior wall of u rinary bladder THYROXINE FREE <td>T4, FREE</td><td>Routine </td><td>06/01/2020 1:57 PM EST</td><td> Malignant neoplasm of anterior wall of urinary bladder</td><td> </td> 06/01/2020 01:57:00 PM EST Malignant neoplasm of anterior wall of urinary bladder [facility] Malignant neoplasm of anterior wall of u rinary bladder LIPASE <td>LIPASE LEVEL</td><td>STA T</td><td>06/01/2020 1:57 PM EST</td><td> Malignant neoplasm of anterior wall of urinary bladder</td><td> </td> 06/01/2020 01:57:00 PM EST Malignant neoplasm of anterior wall of urinary bladder [facility] Malignant neoplasm of anterior wall of u rinary bladder AMYLASE <td>AMYLASE LEVEL</td><td>ST AT</td><td>06/01/2020 1:57 PM EST</td><td> Malignant neoplasm of anterior wall of urinary bladder</td><td> </td> 06/01/2020 01:57:00 PM EST Malignant neoplasm of anterior wall of urinary bladder [facility] Malignant neoplasm of anterior wall of u rinary bladder COMPREHENSIVE METABOLIC PANEL <td>COMPREHENSIVE METABO LIC PANEL</td><td>STAT</td><td>06/01/2020 1:57 PM EST</td><td> Malignant neoplasm of anterior wall of urinary bladder</td><td> </td> 06/01/2020 01:57:00 PM EST Malignant neoplasm of anterior wall of urinary bladder [facility] Malignant neoplasm of anterior wall of u rinary bladder BLOOD COUNT COMPLETE AUTO&AUTO DIFRNTL WBC COUNT <td>C BC AND DIFFERENTIAL</td><td>STAT</td><td>05/13/2020 1:10 PM EST</td><td> Malignant neoplasm of anterior wall of urinary bladder</td><td> </td> 05/13/2020 01:10:00 PM EST Malignant neoplasm of anterior wall of urinary bladder [facility] Malignant neoplasm of anterior wall of u rinary bladder THYROID STIMULATING HORMONE TSH <td>TSH</td><td>Routin e</td><td>05/13/2020 1:10 PM EST</td><td> Malignant neoplasm of anterior wall of urinary bladder</td><td> </td> 05/13/2020 01:10:00 PM EST Malignant neoplasm of anterior wall of urinary bladder [facility] Malignant neoplasm of anterior wall of u rinary bladder THYROXINE FREE <td>T4, FREE</td><td>Routine </td><td>05/13/2020 1:10 PM EST</td><td> Malignant neoplasm of anterior wall of urinary bladder</td><td> </td> 05/13/2020 01:10:00 PM EST Malignant neoplasm of anterior wall of urinary bladder [facility] Malignant neoplasm of anterior wall of u rinary bladder LIPASE <td>LIPASE LEVEL</td><td>STA T</td><td>05/13/2020 1:10 PM EST</td><td> Malignant neoplasm of anterior wall of urinary bladder</td><td> </td> 05/13/2020 01:10:00 PM EST Malignant neoplasm of anterior wall of urinary bladder [facility] Malignant neoplasm of anterior wall of u rinary bladder AMYLASE <td>AMYLASE LEVEL</td><td>ST AT</td><td>05/13/2020 1:10 PM EST</td><td> Malignant neoplasm of anterior wall of urinary bladder</td><td> </td> 05/13/2020 01:10:00 PM EST Malignant neoplasm of anterior wall of urinary bladder [facility] Malignant neoplasm of anterior wall of u rinary bladder COMPREHENSIVE METABOLIC PANEL <td>COMPREHENSIVE METABO LIC PANEL</td><td>STAT</td><td>05/13/2020 1:10 PM EST</td><td> Malignant neoplasm of anterior wall of urinary bladder</td><td> </td> 05/13/2020 01:10:00 PM EST Malignant neoplasm of anterior wall of urinary bladder [facility] Malignant neoplasm of anterior wall of u rinary bladder BLOOD COUNT COMPLETE AUTO&AUTO DIFRNTL WBC COUNT <td>C BC AND DIFFERENTIAL</td><td>STAT</td><td>04/22/2020 1:20 PM EST</td><td> Malignant neoplasm of anterior wall of urinary bladder</td><td> </td> 04/22/2020 01:20:00 PM EST Malignant neoplasm of anterior wall of urinary bladder [facility] Malignant neoplasm of anterior wall of u rinary bladder THYROID STIMULATING HORMONE TSH <td>TSH</td><td>Routin e</td><td>04/22/2020 1:20 PM EST</td><td> Malignant neoplasm of anterior wall of urinary bladder</td><td> </td> 04/22/2020 01:20:00 PM EST Malignant neoplasm of anterior wall of urinary bladder [facility] Malignant neoplasm of anterior wall of u rinary bladder THYROXINE FREE <td>T4, FREE</td><td>Routine </td><td>04/22/2020 1:20 PM EST</td><td> Malignant neoplasm of anterior wall of urinary bladder</td><td> </td> 04/22/2020 01:20:00 PM EST Malignant neoplasm of anterior wall of urinary bladder [facility] Malignant neoplasm of anterior wall of u rinary bladder LIPASE <td>LIPASE LEVEL</td><td>STA T</td><td>04/22/2020 1:20 PM EST</td><td> Malignant neoplasm of anterior wall of urinary bladder</td><td> </td> 04/22/2020 01:20:00 PM EST Malignant neoplasm of anterior wall of urinary bladder [facility] Malignant neoplasm of anterior wall of u rinary bladder AMYLASE <td>AMYLASE LEVEL</td><td>ST AT</td><td>04/22/2020 1:20 PM EST</td><td> Malignant neoplasm of anterior wall of urinary bladder</td><td> </td> 04/22/2020 01:20:00 PM EST Malignant neoplasm of anterior wall of urinary bladder [facility] Malignant neoplasm of anterior wall of u rinary bladder COMPREHENSIVE METABOLIC PANEL <td>COMPREHENSIVE METABO LIC PANEL</td><td>STAT</td><td>04/22/2020 1:20 PM EST</td><td> Malignant neoplasm of anterior wall of urinary bladder</td><td> </td> 04/22/2020 01:20:00 PM EST Malignant neoplasm of anterior wall of urinary bladder [facility] Malignant neoplasm of anterior wall of u rinary bladder OPERATIVE AND PROCEDURE NOTE <td>OPERATIVE AND PROCEDU RE NOTE</td><td></td><td>04/08/2020 3:23 PM EST</td><td></td><td></td> 04/08/2020 03:23:00 PM EST [facility] BLOOD COUNT COMPLETE AUTO&AUTO DIFRNTL WBC COUNT <td>C BC AND DIFFERENTIAL</td><td>Routine</td><td>04/01/2020 12:46 PM EDT</td><td> Malignant neoplasm of anterior wall of urinary bladder</td><td> </td> 04/01/2020 12:46:00 PM EDT Malignant neoplasm of anterior wall of urinary bladder [facility] Malignant neoplasm of anterior wall of u rinary bladder PROSTATE SPECIFIC ANTIGEN TOTAL <td>PSA, TOTAL AND FREE</td><td>STAT</td><td>04/01/2020 12:46 PM EDT</td><td> Malignant neoplasm of anterior wall of urinary bladder</td><td> </td> 04/01/2020 12:46:00 PM EDT Malignant neoplasm of anterior wall of urinary bladder [facility] Malignant neoplasm of anterior wall of u rinary bladder THYROID STIMULATING HORMONE TSH <td>TSH</td><td>Routin e</td><td>04/01/2020 12:46 PM EDT</td><td> Malignant neoplasm of anterior wall of urinary bladder</td><td> </td> 04/01/2020 12:46:00 PM EDT Malignant neoplasm of anterior wall of urinary bladder [facility] Malignant neoplasm of anterior wall of u rinary bladder THYROXINE FREE <td>T4, FREE</td><td>Routine </td><td>04/01/2020 12:46 PM EDT</td><td> Malignant neoplasm of anterior wall of urinary bladder</td><td> </td> 04/01/2020 12:46:00 PM EDT Malignant neoplasm of anterior wall of urinary bladder [facility] Malignant neoplasm of anterior wall of u rinary bladder LIPASE <td>LIPASE LEVEL</td><td>STA T</td><td>04/01/2020 12:46 PM EDT</td><td> Malignant neoplasm of anterior wall of urinary bladder</td><td> </td> 04/01/2020 12:46:00 PM EDT Malignant neoplasm of anterior wall of urinary bladder [facility] Malignant neoplasm of anterior wall of u rinary bladder AMYLASE <td>AMYLASE LEVEL</td><td>ST AT</td><td>04/01/2020 12:46 PM EDT</td><td> Malignant neoplasm of anterior wall of urinary bladder</td><td> </td> 04/01/2020 12:46:00 PM EDT Malignant neoplasm of anterior wall of urinary bladder [facility] Malignant neoplasm of anterior wall of u rinary bladder COMPREHENSIVE METABOLIC PANEL <td>COMPREHENSIVE METABO LIC PANEL</td><td>Routine</td><td>04/01/2020 12:46 PM EDT</td><td> Malignant neoplasm of anterior wall of urinary bladder</td><td> </td> 04/01/2020 12:46:00 PM EDT Malignant neoplasm of anterior wall of urinary bladder [facility] Malignant neoplasm of anterior wall of u rinary bladder BLOOD COUNT COMPLETE AUTO&AUTO DIFRNTL WBC COUNT <td>C BC AND DIFFERENTIAL</td><td>STAT</td><td>03/11/2020 1:00 PM EDT</td><td> Malignant neoplasm of anterior wall of urinary bladder</td><td> </td> 03/11/2020 01:00:00 PM EDT Malignant neoplasm of anterior wall of urinary bladder [facility] Malignant neoplasm of anterior wall of u rinary bladder THYROID STIMULATING HORMONE TSH <td>TSH</td><td>Routin e</td><td>03/11/2020 1:00 PM EDT</td><td> Malignant neoplasm of anterior wall of urinary bladder</td><td> </td> 03/11/2020 01:00:00 PM EDT Malignant neoplasm of anterior wall of urinary bladder [facility] Malignant neoplasm of anterior wall of u rinary bladder THYROXINE FREE <td>T4, FREE</td><td>Routine </td><td>03/11/2020 1:00 PM EDT</td><td> Malignant neoplasm of anterior wall of urinary bladder</td><td> </td> 03/11/2020 01:00:00 PM EDT Malignant neoplasm of anterior wall of urinary bladder [facility] Malignant neoplasm of anterior wall of u rinary bladder LIPASE <td>LIPASE LEVEL</td><td>STA T</td><td>03/11/2020 1:00 PM EDT</td><td> Malignant neoplasm of anterior wall of urinary bladder</td><td> </td> 03/11/2020 01:00:00 PM EDT Malignant neoplasm of anterior wall of urinary bladder [facility] Malignant neoplasm of anterior wall of u rinary bladder AMYLASE <td>AMYLASE LEVEL</td><td>ST AT</td><td>03/11/2020 1:00 PM EDT</td><td> Malignant neoplasm of anterior wall of urinary bladder</td><td> </td> 03/11/2020 01:00:00 PM EDT Malignant neoplasm of anterior wall of urinary bladder [facility] Malignant neoplasm of anterior wall of u rinary bladder COMPREHENSIVE METABOLIC PANEL <td>COMPREHENSIVE METABO LIC PANEL</td><td>STAT</td><td>03/11/2020 1:00 PM EDT</td><td> Malignant neoplasm of anterior wall of urinary bladder</td><td> </td> 03/11/2020 01:00:00 PM EDT Malignant neoplasm of anterior wall of urinary bladder [facility] Malignant neoplasm of anterior wall of u rinary bladder Results ID Date Data Source [id number] 04/21/2021 03:30:06 PM [facility] XR CHEST FRONTAL AND LATERAL [id number] RESULTInterpreted by:Robb Veronica MDPROCEDURE INFORMATION: Exam: XR [...] rce(s) Supporting Document(s) ID Date Data Source [id number] 04/21/2021 11:34:21 AM [facility] Service Cmnt XXX-Imp : NoneRespiratory P CR Panel : PCR ResultsMicroorganism XXX Cult : This test does NOT include the virus that causes COVID-19. See separate test for this result.HAdV DNA QI ANNALISA+non-probe : Not DetectedHCoV [id number] Nph QI ANNALISA+non-probe : Not DetectedHCoV [id number] Nph QI ANNALISA+non-probe : Not [id number] RNA Nph QI ANNALISA+non-probe : Not [id number] RNA Upper resp QI ANNALISA+probe : Not [...] rce(s) Supporting Document(s) ID Date Data Source [id number] 04/21/2021 08:47:07 AM [facility] Name Value Range Interpretation Code Description Data Irish rce(s) Supporting Document(s) Leukocytes [#/volume] in Blood by Automated count 17.2 10*3/uL 4-10 H [facility] Erythrocytes [#/volume] in Blood by Automated count 3.83 10*6/uL 4.6- 6.1 L [facility] Hemoglobin [Mass/volume] in Blood 12.0 g/dL 13.5-18 L [facility] Hematocrit [Volume Fraction] of Blood by Automated count 37.1 % 4 1-53 L [facility] Erythrocyte mean corpuscular volume [Entitic volume] by Auto mated count 96.8 fL 80-96 H [facility] Erythrocyte mean corpuscular hemoglobin [Entitic mass] by Automated count 31.4 pg 27-33 [facility] Erythrocyte mean corpuscular hemoglobin concentration [Mass/volume] by Automated count 32.4 g/dL [facility].0[facility] distribution width [Ratio] by Automated count 16.7 % 11.5-14.5 H [facility] Platelets [#/volume] in Blood by Automated count 159 10*3/uL 150-400 [facility] Differential cell count method - Blood [facility] Neutrophils/100 leukocytes in Blood by Automated count 87 % [facility] Lymphocytes/100 leukocytes in Blood by Automated count 3 % [facility] Monocytes/100 leukocytes in Blood by Automated count 8 % [facility] Basophils/100 leukocytes in Blood by Automated count 1 % [facility] Neutrophils [#/volume] in Blood by Automated count 14.96 10*3/uL 1.8- 7.0 H [facility] Lymphocytes [#/volume] in Blood by Automated count 0.52 10*3/uL 1.2-4 .0 L [facility] Monocytes [#/volume] in Blood by Automated count 1.38 10*3/uL 0-0.8 H [facility] Basophils [#/volume] in Blood by Automated count 0.17 10*3/uL 0-0.2 [facility] Myelocytes/100 leukocytes in Blood by Manual count 1 % [facility] Myelocytes [#/volume] in Blood by Manual count 0.17 10*3/uL 0-0 H [facility] ID Date Data Source [id number] 04/21/2021 09:03:29 AM [facility] Name Value Range Interpretation Code Description Data Irish rce(s) Supporting Document(s) Albumin [Mass/volume] in Serum or Plasma by Bromocresol green (BCG) dye binding method 3.9 g/dL 3.5-5.2 [facility] Bilirubin.total [Mass/volume] in Serum or Plasma 0.4 mg/dL <1.2 [facility] Calcium [Mass/volume] in Serum or Plasma 9.1 mg/dL 8.6-10.0 [facility] Chloride [Moles/volume] in Serum or Plasma 100 mmol/L 98-107 [facility] Creatinine [Mass/volume] in Serum or Plasma 1.41 mg/dL 0.70-1.20 H [facility] Glucose [Mass/volume] in Serum or Plasma 128 mg/dL 70-140 [facility] Alkaline phosphatase [Enzymatic activity/volume] in Serum or Plasma 226 U/L 40-129 H [facility] Potassium [Moles/volume] in Serum or Plasma 4.4 mmol/L 3.4-5.1 [facility] Protein [Mass/volume] in Serum or Plasma 7.1 g/dL 6.4-8.3 [facility] Sodium [Moles/volume] in Serum or Plasma 137 mmol/L 136-145 [facility] Aspartate aminotransferase [Enzymatic activity/volume] in Serum or Plasma 46 U/L <40 H [facility] Urea nitrogen [Mass/volume] in Serum or Plasma 24 mg/dL 6-20 H [facility] Osmolality of Serum or Plasma by calculation 289 mosm/kg 275-300 [facility] Creatinine/Urea nitrogen [Mass Ratio] in Serum or Plasma 17 [facility] Bicarbonate [Moles/volume] in Serum 18 mmol/L 22-29 L [facility] Alanine aminotransferase [Enzymatic activity/volume] in Seru m or Plasma 35 U/L <41 [facility] Anion gap 3 in Serum or Plasma 19 mmol/L 8-15 H [facility] Glomerular filtration rate/1.73 sq M pre dicted among non-blacks [Volume Rate/Area] in Serum or Plasma by Creatinine-based formula (MDRD) 55 mL/min/1.73m2 >60 L [facility] Glomerular filtration rate/1.73 sq M pre dicted among blacks [Volume Rate/Area] in Serum or Plasma by Creatinine-based formula (MDRD) 64 mL/min/1.73m2 >60 [facility] ID Date Data Source [id number] 04/21/2021 09:03:29 AM [facility] Value Range Interpretation Code Description Data Irish rce(s) Supporting Document(s) Thyrotropin [Units/volume] in Serum or Plasma 4.080 u[IU]/mL 0.270-4. 200 [facility] ID Date Data Source [id number] 04/21/2021 09:38:20 AM [facility] Value Range Interpretation Code Description Data Irish rce(s) Supporting Document(s) C reactive protein [Mass/volume] in Serum or Plasma 109.3 mg/L <8.0 H [facility] ID Date Data Source [id number] 04/21/2021 10:11:00 AM [facility] Value Range Interpretation Code Description Data Irish rce(s) Supporting Document(s) Cortisol [Mass/volume] in Serum or Plasma 19.0 ug/dL [facility] Ref range for 6-10 am samples: 6.0-18.4 ug/dLRef range for 4-8 pm samples: 2.7- 10.5 ug/dLRef range not established for other times. ID Date Data Source [id number] 04/21/2021 10:19:45 AM [facility] Name Value Range Interpretation Code Description Data Irish rce(s) Supporting Document(s) Erythrocyte sedimentation rate 15 mm/hr <20 [facility] ID Date Data Source [id number] 04/21/2021 11:45:22 AM [facility] Name Value Range Interpretation Code Description Data Irish rce(s) Supporting Document(s) Procalcitonin [Mass/volume] in Serum or Plasma 0.49 ng/mL <0.10 H [facility] (NOTE) < 0.25 ng/mL Bacterial [...] to sepsis/septic shock. ID Date Data Source [id number] 04/21/2021 12:49:22 PM [facility] Name Value Range Interpretation Code Description Data Irish rce(s) Supporting Document(s) Creatine kinase [Enzymatic activity/volume] in Serum or Plasma 51 U /L 20-200 [facility] ID Date Data Source [id number] 04/18/2021 01:20:00 PM [facility] Name Value Range Interpretation Code Description Data Irish rce(s) Supporting Document(s) TSH 3.254 uIU/mL 0.358-3.740 [facility] ID Date Data Source [id number] 04/18/2021 12:59:00 PM [facility] Name Value Range Interpretation Code Description Data Irish rce(s) Supporting Document(s) GLUCOSE 99 mg/dL 74-106 [facility] BLOOD UREA NITROGEN 20 mg/dL 7-18 H [facility] CREATININE 1.47 mg/dl 0.70-1.30 H [facility] SODIUM 142 mmol/L 136-145 [facility] POTASSIUM 5.2 mmol/L 3.5-5.1 H [facility] CHLORIDE 105 mmol/L 98-107 [facility] CO2 28 mmol/L 21-32 [facility] CALCIUM 8.4 mg/dL 8.5-10.1 L [facility] ANION GAP 9.0 mmol/L 5-12 [facility] GLOMERULAR FILTRATION RATE 50 mL/min [facility] GFR IS CALCULATED IN mL/min/1.73m2 NINA L FUNCTION: >90MILDLY DECREASED: 60-89MILDY TO MODERATELY DECREASED: 45-59 MODERATELY TO SEVERELY DECREASED: 30-44SEVERELY DECREASED: 15-29RENAL FAILURE: <15 AST 34 U/L 15-37 [facility] ALT 48 U/L 16-63 [facility] ALKALINE PHOSPHATASE 183 U/L 46-116 H [facility] TOTAL BILIRUBIN 0.3 mg/dL 0.2-1.0 [facility] TOTAL PROTEIN 7.1 g/dL 6.4-8.2 [facility] ALBUMIN 3.3 gm/dL 3.4-5.0 L [facility] ID Date Data Source [id number] 04/18/2021 12:28:00 PM [facility] Name Value Range Interpretation Code Description Data Irish e(s) Supporting Document(s) WHITE BLOOD COUNT 12.7 K/mm3 4.0-10.0 H [facility] oz RED BLOOD COUNT 3.75 M/mm3 4.50-6.00 L [facility] HEMOGLOBIN 12.1 gm/dL 14.0-18.0 L [facility] HEMATOCRIT 37.2 % 42.0-54.0 [facility] MEAN CELL VOLUME 99.2 fl 80-96 [facility] l MEAN CORPUSCULAR HEMOGLOBIN 32.3 pg 27.0-31.0 H [facility] MEAN CORPUSCULAR HGB CONC 32.5 g/dl 32.0-36.0 [facility] RED CELL DISTRIBUTION WIDTH 14.2 % 10.0-14.5 [facility] PLATELET COUNT 187 K/mm3 172-450 [facility] MEAN PLATELET VOLUME 9.8 fl 9.0-13.0 [facility] pital GRAN % 70.5 % 50-80.0 [facility] IG% 1.1 % 0.0-0.2 H [facility] LYMPH % 11.0 % 25.0-50.0 L [facility] MONO % 12.5 % 2.0-10.0 H [facility] EOS % 4.6 % 0-5.0 [facility] BASO % 0.3 % 0.0-2.0 [facility] GRAN # 8.9 K/mm3 2.0-8.00 H [facility] IG# 0.1 K/mm3 0.0-0.2 [facility] LYMPH # 1.4 K/mm3 1.0-5.0 [facility] MONO # 1.6 K/mm3 0.10-1.20 H [facility] EOS # 0.6 K/mm3 0.0-0.5 H [facility] BASO # 0.0 K/mm3 0.0-0.2 [facility] ID Date Data Source [id number] 04/10/2021 09:23:15 PM [facility] Name Value Range Interpretation Code Description Data Irish rce(s) Supporting Document(s) Progress Note [facility] CWSENu0nHuHJHwEb35/XYVwzDDWcf9EiINkqVCc5FIcaVIFjM7RxIRN1tH8wPXB0DLkBMhQjArJkIXR8 m AoRycDMpPhXVBvHwzHOvEyIHllPlvakUSoUO8LbNS6IDQzV44dCRJeJWUdS6OzYAK1ZlE+Kg6XVNKwdN UlNP3BBinP2G5dvwf7Ot6csm0NoUCzRYT3yHFi3zLirRJdneNgXod2xYqwUkqjTDPwUEZN5cB/Weber/t3f Hdbflhu0f9UWn5qukBLMYbjAWffJFBBm41fypCFb11 Kv+7/GFYlTp4Da/8g1o3s+j26pgQ0ai9YUBab+UHxa/W+/SD4zN1+L1WRW/i7G8IUONb1VyUsA1B9mBx 43SR5Y/J4flaIuMuoqUfnc0suEuhfS0VtC457uc46ze34bk77Izxj3Ayp1Z7df3y5zMgdrjikvzgw36Y qWaZvk02YnalOQ/foT79QDKLBxyFjUKJdS8aFuqGPi fklmfqvdv+h79HLzNLkQqFOGo8XCxOiH9myU4guosiKkOTpLLA9jzGrzSc4vs95gxk9l2vFKZFf2aGbe fwZIrZvzZmXKRn7fTUZGGXU2omMqgiZdXcvfGs+09hXQmA2cdlHqU45WPLn3i3zD5vm3vPSI49P2Vwa2 nQqrcjaus8ATapggqa7fN1lnNq66pMGxKKFdnxc69i [file] AgICAgICAgICAgICAgICAgICAgICAgICAgICAgICAgICAgICAgICAgICAgICAgICAgICAgICAgDQogIC AgICAgICAgICAgICAgICAgICAgICAgICAgICAgICAg ICAgICAgICAgICAgICAgICAgICAgICAgICAgICAgICAgICAgICAgICAgICAgICAgICAgICAgICAgICAg ICAgICAgDQogICAgICAgICAgICAgICAgICAgICAgICAgICAgICAgICAgICAgICAgICAgICAgICAgICAg ICAgICAgICAgICAgICAgICAgICAgICAgICAgICAgIC AgICAgICAgICAgICAgICAgDQogICAgICAgICAgICAgICAgICAgICAgICAgICAgICAgICAgICAgICAgIC AgICAgICAgICAgICAgICAgICAgICAgICAgICAgICAgICAgICAgICAgICAgICAgICAgICAgICAgICAgDQ ogICAgICAgICAgICAgICAgICAgICAgICAgICAgICAg ICAgICAgICAgICAgICAgICAgICAgICAgICAgICAgICAgICAgICAgICAgICAgICAgICAgICAgICAgICAg ICAgICAgICAgDQogICAgICAgICAgICAgICAgICAgICAgICAgICAgICAgICAgICAgICAgICAgICAgICAg ICAgICAgICAgICAgICAgICAgICAgICAgICAgICAgIC AgICAgICAgICAgICAgICAgICAgDQogICAgICAgICAgICAgICAgICAgICAgICAgICAgICAgICAgICAgIC AgICAgICAgICAgICAgICAgICAgICAgICAgICAgICAgICAgICAgICAgICAgICAgICAgICAgICAgICAgIC AgDQogICAgICAgICAgICAgICAgICAgICAgICAgICAg ICAgICAgICAgICAgICAgICAgICAgICAgICAgICAgICAgICAgICAgICAgICAgICAgICAgICAgICAgICAg ICAgICAgICAgICAgDQogICAgICAgICAgICAgICAgICAgICAgICAgICAgICAgICAgICAgICAgICAgICAg ICAgICAgICAgICAgICAgICAgICAgICAgICAgICAgIC AgICAgICAgICAgICAgICAgICAgICAgDQogICAgICAgICAgICAgICAgICAgICAgICAgICAgICAgICAgIC AgICAgICAgICAgICAgICAgICAgICAgICAgICAgICAgICAgICAgICAgICAgICAgICAgICAgICAgICAgIC JoDBNeGAw3H7bqZMJtYHXmUR5yPKd8Zn3+DQoNCmVu NGC9azLfcF4YHF2my3VwACcoZZHcy7HcMDm1WF5BLJCnAMdkFN8XGJxnrb2MZMJoNFYumTJYb6iuGrRr LCR8XUShAhrrNS3ANFBwY6losxWrYUAlDCOTSUtqLUHTME5IVjRhC5EneE35ALBEPi9+DQplbmRvYmoN MsNyXAXiy6VcYCj9GM6RUTGlZdtfj7IdTgRtAXCNBQ azXF0YRQP0IFToPPSzZu8GXFZzH393upJdRM0YRy9SHnTdVU1zic2XTdXmODXcIeoJToe5IVzwCB6WzT WiSDdEbd0ayyNvalDBi1KbqsTjdYQUxQymZOVQKYQqWJXtFH8SADJ6OOwkCtGrQlZwHMOqMMkwIEJSJG yRVkMwU7Wga6HlAkH1VXCjBeFdEWzzCRWrRqP8HX53 tPmpBT2LCVZaOOPzTJ31HALgUBGlHv1WDl7SMrJwCB8mvk1HDxYwPTQlBuxGLvi2VLfyKI9MpLTtY8Ui hSTzj5pKBxMnK4KUBHX2YDEiCd8VWKQvMfQoYLTgKDooVI6gJEYnQSQWaZezhrY1HJ8ZCY1ykyMdRB3G AaImRn9xWp2VBzPdA5KwT8KkXTTnQFJRKIutHM0ROD ecKI4iDV2Ei0GFdMEneV2mfk5ZYXYkCNVnKnpfqn4YSyliI3Z4rLtfRUZfIlWvCMRJDInfRE6UNBYbHS V2GCXkNAZvTLAQVoGdH22mQB8WB4Shw81bSrY2SAZmArMuYQuhJS66uGjqgxTbzTPvaRsrRT9WDl0+DQ plbmRvYmoNCnhyZWYNCjAgMjQNCjAwMDAwMDAwMDAg YhZ7GxHqCt7QWKTrCPPmSSWrFuRoOZRmULTxKZhlYXJsPMOlGPP0PQBxNIZoLZ7VHaPnOJXyYtBsQcXg AWFyWDKnyo7FUPUsTVYvRYW2UlOxEENtAXNlZRjvLMClOCI8RNw3NNKsBCJxXV3VPpBqSBRzTQIlOkaf JYVaVVShsh4SCIMxPNLtEIJ6CMRvUMVeUQWhUKptYL MyHJL8JKe1HJLvHYAqRZ2VDpMvLDDgMIt6VoZoOIYfGDNshu8KZQVoUHTpQNYhIAZtMZHxINNaHCsyGD NiDPX5UKHaYKKtIXCwBE0SRiGzKZRcBFW7LhofJVPfOBVaou8YUDVaOKOuNFw9FMLyRGAaKRQgVQbyLY BdIJEqUZI0TKIrESPeLO0DTdEsGKSsXvW0TDIfJFTp KPVrzg7EMXRxKBKbUlswJVSmLDTdCBEtMTzpDSXpSTWwGRX4BXZbTCCeVT4IJnAdDMDhYmCnJprvJZBu XJVpqw6NECIgHWEfRkOcVONnAAYrZGUcBIhiRYHnXMOdJAD7SQWjUEUbHN6HQaMpSJJpLmGaKkIwADAp PEIvjj5XBOPaLDSoJTC4RVSxELLlPHLrVExtBPEiTB P6IUk0KZBhVRToJY5BWiKdLYsmNEQOEoo1VNlfF2b3TMXrAX8EW8Lzc5KwKxQmTNNBTWxkSZ6orsHxPY VoZv2RG6uPWqoqTtHtBwZbNfS5Wnn6SPWlSgd1SjZ6YLK0XBklNpsrQq0zOEEtSmQbQOTuMFVbCIu2PK R4LcPrAHk3VnwxNTAkJNSuVqJcMW6ZGi5HMyB7CYL8cBAhAi0AFnL0OeLHFqJxTF4VAJw= ID Date Data Source [id number] 04/10/2021 09:23:10 PM EST [facility] Name Value Range Interpretation Code Description Data Irish rce(s) Supporting Document(s) Progress Note [facility] [id number]/PWRfkFDLdx9UiCEnfMCo2NGeiVQAeT8OiPJR3wX4nACA6RGkQNvLgEuEvQHG2 lbm [file] [id number]nZqWgZH1TVz0JPlP2ANP5wUOyPi6IXZP9QpVDOiCuIJ9EAEb= ID Date Data Source [id number] 04/07/2021 10:10:[address] [facility] Name Value Range Interpretation Code Description Data Irish rce(s) Supporting Document(s) Albumin [Mass/volume] in Serum or Plasma by Bromocresol green (BCG) dye binding method 3.9 g/dL 3.5-5.2 [facility] Bil[facility].total [Mass/volume] in Serum or Plasma 0.2 mg/dL <1.2 [facility] Calcium [Mass/volume] in Serum or Plasma 8.3 mg/dL 8.6-10.0 L [facility] Chloride [Moles/volume] in Serum or Plasma 101 mmol/L 98-107 [facility] Creatinine [Mass/volume] in Serum or Plasma 1.15 mg/dL 0.70-1.20 [facility] Glucose [Mass/volume] in Serum or Plasma 89 mg/dL 70-140 [facility] Alkaline phosphatase [Enzymatic activity/volume] in Serum or Plasma 122 U/L 40-129 [facility] Potassium [Moles/volume] in Serum or Plasma 4.3 mmol/L 3.4-5.1 [facility] Protein [Mass/volume] in Serum or Plasma 6.3 g/dL 6.4-8.3 L [facility] Sodium [Moles/volume] in Serum or Plasma 133 mmol/L 136-145 L [facility] Aspartate aminotransferase [Enzymatic activity/volume] in Serum or Plasma 20 U/L <40 [facility] Urea nitrogen [Mass/volume] in Serum or Plasma 20 mg/dL 6-20 [facility] Osmolality of Serum or Plasma by calculation 277 mosm/kg 275-300 [facility] Creatinine/Urea nitrogen [Mass Ratio] in Serum or Plasma 17 [facility] Bicarbonate [Moles/volume] in Serum 21 mmol/L 22-29 L [facility] Alanine aminotransferase [Enzymatic activity/volume] in Seru m or Plasma 16 U/L <41 [facility] Anion gap 3 in Serum or Plasma 11 mmol/L 8-15 [facility] Glomerular filtration rate/1.73 sq M pre dicted among non-blacks [Volume Rate/Area] in Serum or Plasma by Creatinine-based formula (MDRD) 70 mL/min/1.73m2 >60 [facility] Glomerular filtration rate/1.73 sq M pre dicted among blacks [Volume Rate/Area] in Serum or Plasma by Creatinine-based formula (MDRD) 82 mL/min/1.73m2 >60 [facility] ID Date Data Source [id number] 04/07/2021 10:10:28 AM [facility] Name Value Range Interpretation Code Description Data Irish rce(s) Supporting Document(s) Thyrotropin [Units/volume] in Serum or Plasma 2.980 u[IU]/mL 0.270-4. 200 [facility] ID Date Data Source [id number] 04/07/2021 09:29:17 AM [facility] Name Value Range Interpretation Code Description Data Irish rce(s) Supporting Document(s) Leukocytes [#/volume] in Blood by Automated count 9.7 10*3/uL 4-10 [facility] Erythrocytes [#/volume] in Blood by Automated count 3.30 10*6/uL 4.6- 6.1 L [facility] Hemoglobin [Mass/volume] in Blood 10.9 g/dL 13.5-18 L [facility] Hematocrit [Volume Fraction] of Blood by Automated count 33.8 % 4 1-53 L [facility] Erythrocyte mean corpuscular volume [Entitic volume] b y Automated count 102.6 fL 80-96 H [facility] Erythrocyte mean corpuscular hemoglobin [Entitic mass] by Automated count 33.0 pg 27-33 [facility] Erythrocyte mean corpuscular hemoglobin concentration [Mass/volume] by Automated count 32.2 g/dL 32.0-36.0 [facility] E[facility]th[facility] distribution width [Ratio] by Automated count 16.5 % 11.5-14.5 H [facility] Platelets [#/volume] in Blood by Automated count 237 10*3/uL 150-400 [facility] Differential cell count method - Blood [facility] Neutrophils/100 leukocytes in Blood by Automated count 71 % [facility] Lymphocytes/100 leukocytes in Blood by Automated count 13 % [facility] Monocytes/100 leukocytes in Blood by Automated count 12 % [facility] Eosinophils/100 leukocytes in Blood by Automated count 3 % [facility] Basophils/100 leukocytes in Blood by Automated count 1 % [facility] Neutrophils [#/volume] in Blood by Automated count 6.95 10*3/uL 1.8-7 .0 [facility] Lymphocytes [#/volume] in Blood by Automated count 1.24 10*3/uL 1.2-4 .0 [facility] Monocytes [#/volume] in Blood by Automated count 1.15 10*3/uL 0-0.8 H [facility] Eosinophils [#/volume] in Blood by Automated count 0.28 10*3/uL 0-0.5 [facility] Basophils [#/volume] in Blood by Automated count 0.06 10*3/uL 0-0.2 [facility] Nucleated erythrocytes/100 leukocytes [Ratio] in Blood by Automated count 0 /100{WBCs} 0-0 [facility] ID Date Data Source [id number] 03/27/2021 11:37:20 AM EDT [facility] Name Value Range Interpretation Code Description Data Irish rce(s) Supporting Document(s) Progress Note [facility] GBCDEt5oQaAHEjAn15/BMLdhMMCqq6EzALawNQs4YKaqQQKvQ5BhHNL7vV7zLMW6BFbEObQyOrNzYRA2 lbm [file] ICAgICAgICAgICAgICAgICAgICAgICAgICAgICAgIC AgICAgICAgICAgICANCiAgICAgICAgICAgICAgICAgICAgICAgICAgICAgICAgICAgICAgICAgICAgIC AgICAgICAgICAgICAgICAgICAgICAgICAgICAgICAgICAgICAgICAgICAgICAgICAgICAgICANCiAgIC AgICAgICAgICAgICAgICAgICAgICAgICAgICAgICAg ICAgICAgICAgICAgICAgICAgICAgICAgICAgICAgICAgICAgICAgICAgICAgICAgICAgICAgICAgICAg ICAgICANCiAgICAgICAgICAgICAgICAgICAgICAgICAgICAgICAgICAgICAgICAgICAgICAgICAgICAg ICAgICAgICAgICAgICAgICAgICAgICAgICAgICAgIC AgICAgICAgICAgICAgICANCiAgICAgICAgICAgICAgICAgICAgICAgICAgICAgICAgICAgICAgICAgIC AgICAgICAgICAgICAgICAgICAgICAgICAgICAgICAgICAgICAgICAgICAgICAgICAgICAgICAgICANCi AgICAgICAgICAgICAgICAgICAgICAgICAgICAgICAg ICAgICAgICAgICAgICAgICAgICAgICAgICAgICAgICAgICAgICAgICAgICAgICAgICAgICAgICAgICAg ICAgICAgICANCiAgICAgICAgICAgICAgICAgICAgICAgICAgICAgICAgICAgICAgICAgICAgICAgICAg ICAgICAgICAgICAgICAgICAgICAgICAgICAgICAgIC AgICAgICAgICAgICAgICAgICANCiAgICAgICAgICAgICAgICAgICAgICAgICAgICAgICAgICAgICAgIC AgICAgICAgICAgICAgICAgICAgICAgICAgICAgICAgICAgICAgICAgICAgICAgICAgICAgICAgICAgIC ANCiAgICAgICAgICAgICAgICAgICAgICAgICAgICAg ICAgICAgICAgICAgICAgICAgICAgICAgICAgICAgICAgICAgICAgICAgICAgICAgICAgICAgICAgICAg ICAgICAgICAgICANCiAgICAgICAgICAgICAgICAgICAgICAgICAgICAgICAgICAgICAgICAgICAgICAg ICAgICAgICAgICAgICAgICAgICAgICAgICAgICAgIC AgICAgICAgICAgICAgICAgICAgICANCjw/wDIxL6bmwPJqxmJ5S1tnVx0DKk4XNP0ng7QaSCLxTGebzs FqJxfGKgPkXPYcKozIHsx6SIgoJN7CrMQnH0EeI2MsIWsfFH9AVIGpCANqeEGyJGDoFIEcLsZ6LLXjOS weQU2UgJZrRNkoRNQeFJXgXOQdNALkRZZfYNPHTKXj JFLjVoUtZVCjOOPeYBXnYTAANO6LPoWlG9SstC68PMXFQy5+BFfxauMeOymTPeYfWXUzl2FrEJt6RD5Z GPWpCbfek7AgUuXgGPRMZZahUX9JUTI0LVK3XQIvLt7CTEFmV539yvTmYL5KQj5NAcBzAB0iyb6NTjFr VMSyPvkHRpm5OKivNP7SfVCvYLjAjd1vsyVsylABl6 PxpaVamZOLrDQfksIzMEBMsAcbbfswRVFtNDXoNYTcSzJlUwSwELVzAWx2TXNXXIxEQiGiQ4Nol9XmUf B8PJAyLyQlJNzpDKYwHuJ3YJ21sSwbRU0RUWKmOJRaAI89YAQtBTLqHt0LMm7RBbDlRO0fdi5RCxIbTH 8bkw9JUMdEOyYbI2C9gBYjC7Ursl31RK4PlAC5jOZn KO8NwH2aWC4Sp2YoRECyMkZeACCbZIHmHMTfNRLeMuDxSP1VMAJyDvSpdSMkIIYfUGD9MYNuVxQ6VSSe NI1ANWXkVXG9IU1MKR2FUdhaW6WGOKpelNfaRxQWCTC/CMNGGZANXTsrUBKkJ95AL9QGEDqRWmlvSEsZ NtszQb7jOXc+Vg5HGT1qt8OaOIjvVUFoNR9byg9VWB sVMeHtD4L3gKWlE5N7CLefYf9ROXPoKSNxZlSiMAZHXWrnGB4EDX9kggL0XK5FvZHgPQKxJBGoxVLrDR m3X79wjKVbTIemBB2LCIW+Zeferino+Cv3GUINvROYuPTExKdXtCEIMFcNwK1ZuR3VJo2KfL7YkXB93nVzvpw JvEDupJD6KYL6lPJVzBOMXGF0HcKAdxG9iglIuIqKk FKYLEaBmU17jxUWpADWqAIWeEPQpBj6NGIVvF4DywxDxuSijiuAoNJBaGTKZBE5JIHcuycYadKEbbKsi TV53aQhpMA5GPm0FJkGdOH0dne5BjFAaTw4DCSJwAf9MYILmYZVrIYUvGRL0NWTxXjZyNEoxEXHsDFBn BNP0PNXnXZKuUH0TSnMaRIQuKfwmSlTaNQJdYPXbjs 6OUENnVWFaPWxiVRTmMZXtUZGkUSdbJWPxWOVoZIP4QJCfXPKoQY3DQsTpKNDtHMXvMFYvMQCbLLZxlq 4HSMEvJKV8LBE7FvXmZMHxFRVxWMyjVHNfISB7XeOiQGDpAYSzPN4YUsKyJNFwHKopPaJyIBGeFWSruy 4KLGKzBQQzHWZ0HVUnRJFoRWMtRLevTOFuFGIrYvkt ABTnVPAePS9BPwJwENPrPND2ElaeNYEkCZPgps0WXQEiRICnAYMeOTKmQZNePKQrCJrqTDXaLUA2KnNl KWSjCPPxZD1XJyFdGNOrLNdtEKTsHQLcTWMybo7DRUPwJAXfIWY7IJWoBZXfCLSoCPuwHTZxDJTwXLg5 OVMwRTYgYR2ITqWzJRUlUdE3SFVbVFRhVWXdzw8QNF HtTVTtFwa7QVOlHQJgICCeTUpdAQTdPIXoTSOzGZMvTKXwJH3VPmVuGPDgTbQdMxNhLMZqAFWemf4HJG BoLNCnONN4MySlUADjLZPgIQrgEEJlORY8Iii8BYYuRQShPX8EZfFdWZKfOuU7FOTlUREqQKZazd3ROF IpFRPuGXzcUxLgKOMaZNIlAUhxETUsWCW7AsG2FSSm XHZsPI8GToKvKYJcGgI5FRwsFXSpDWIooi6XIADaLNUdTsY7VvNnWDWlGJZcXIinCNZhQGC5HHLtKMHh NPDuYM9KQfYmCPTcJpv1HEcaNMLkNOMkyv0BOTAsTBTmPbz6BAFtQQJgWMZoMQszBOHwVBW2ZPIhURTu YPOwXG2TKiWrDFQpBmr1FpKpKJCuXAZbas7JYNLwIT W8WTC7YzAxICZzUYZlIKvnOSUwVJErUVBxROEpFEWgEM1UXdVhJUTqAHG9XqjiQPExGDXijp9IjTQyqF aoal8YLPiSBv3BlDkbMKK4MVfzYl4rwJSrOSUpYHGBZn4OwrUsZPDkGGBYBNmyMPGcABHzDTM1IAQ0Kw ExWRViFHOkVpY6EYVpEADuYxQoQXZ3OxS2I2O4BpRo Pza9HZZ9B1X6NtO0YTs7NFDoMNOtOzQ0Jkg+IQ3yDPs+Zz9Pr1HaxdU1fgQgEMk7KSA3Bn9XXQKTE3YI Cg== ID Date Data Source [id number] 03/24/2021 09:02:28 AM EDT [facility] Name Value Range Interpretation Code Description Data Irish e(s) Supporting Document(s) Leukocytes [#/volume] in Blood by Automated count 8.9 10*3/uL 4-10 [facility] Erythrocytes [#/volume] in Blood by Automated count 3.16 10*6/uL 4.6- 6.1 L [facility] Hemoglobin [Mass/volume] in Blood 11.0 g/dL 13.5-18 L [facility] Hematocrit [Volume Fraction] of Blood by Automated count 33.5 % 4 1-53 L [facility] Erythrocyte mean corpuscular volume [Entitic volume] b y Automated count 106.0 fL 80-96 H [facility] Erythrocyte mean corpuscular hemoglobin [Entitic mass] by Automated count 34.9 pg 27-33 H [facility] Erythrocyte mean corpuscular hemoglobin concentration [Mass/volume] by Automated count 32.9 g/dL 32.0-36.0 [facility] E[facility]th[facility] distribution width [Ratio] by Automated count 16.6 % 11.5-14.5 H [facility] Platelets [#/volume] in Blood by Automated count 278 10*3/uL 150-400 [facility] Differential cell count method - Blood [facility] Neutrophils/100 leukocytes in Blood by Automated count 73 % [facility] Lymphocytes/100 leukocytes in Blood by Automated count 11 % [facility] Monocytes/100 leukocytes in Blood by Automated count 11 % [facility] Eosinophils/100 leukocytes in Blood by Automated count 4 % [facility] Basophils/100 leukocytes in Blood by Automated count 1 % [facility] Neutrophils [#/volume] in Blood by Automated count 6.58 10*3/uL 1.8-7 .0 [facility] Lymphocytes [#/volume] in Blood by Automated count 0.96 10*3/uL 1.2-4 .0 L [facility] Monocytes [#/volume] in Blood by Automated count 1.01 10*3/uL 0-0.8 H [facility] Eosinophils [#/volume] in Blood by Automated count 0.32 10*3/uL 0-0.5 [facility] Basophils [#/volume] in Blood by Automated count 0.08 10*3/uL 0-0.2 [facility] Nucleated erythrocytes/100 leukocytes [Ratio] in Blood by Automated count 0 /100{WBCs} 0-0 [facility] ID Date Data Source [id number] 03/24/2021 09:36:58 AM T [facility] Name Value Range Interpretation Code Description Data Irish rce(s) Supporting Document(s) Albumin [Mass/volume] in Serum or Plasma by Bromocresol green (BCG) dye binding method 4.0 g/dL 3.5-5.2 [facility] al Bilirubin.total [Mass/volume] in Serum or Plasma <1.2 [facility] Calcium [Mass/volume] in Serum or Plasma 8.9 mg/dL 8.6-10.0 [facility] Chloride [Moles/volume] in Serum or Plasma 104 mmol/L 98-107 [facility] Creatinine [Mass/volume] in Serum or Plasma 1.25 mg/dL 0.70-1.20 H [facility] Glucose [Mass/volume] in Serum or Plasma 92 mg/dL 70-140 [facility] Alkaline phosphatase [Enzymatic activity/volume] in Serum or Plasma 110 U/L 40-129 [facility] Potassium [Moles/volume] in Serum or Plasma 4.4 mmol/L 3.4-5.1 [facility] Protein [Mass/volume] in Serum or Plasma 6.4 g/dL 6.4-8.3 [facility] Sodium [Moles/volume] in Serum or Plasma 137 mmol/L 136-145 [facility] Aspartate aminotransferase [Enzymatic activity/volume] in Serum or Plasma 17 U/L <40 [facility] Urea nitrogen [Mass/volume] in Serum or Plasma 24 mg/dL 6-20 H [facility] Osmolality of Serum or Plasma by calculation 288 mosm/kg 275-300 [facility] Creatinine/Urea nitrogen [Mass Ratio] in Serum or Plasma 19 [facility] Bicarbonate [Moles/volume] in Serum 25 mmol/L 22-29 [facility] Alanine aminotransferase [Enzymatic activity/volume] in Seru m or Plasma 15 U/L <41 [facility] Anion gap 3 in Serum or Plasma 9 mmol/L 8-15 [facility] Glomerular filtration rate/1.73 sq M pre dicted among non-blacks [Volume Rate/Area] in Serum or Plasma by Creatinine-based formula (MDRD) 64 mL/min/1.73m2 >60 [facility] Glomerular filtration rate/1.73 sq M pre dicted among blacks [Volume Rate/Area] in Serum or Plasma by Creatinine-based formula (MDRD) 74 mL/min/1.73m2 >60 [facility] ID Date Data Source [id number] 03/24/2021 09:36:58 AM [facility] Name Value Range Interpretation Code Description Data Irish rce(s) Supporting Document(s) Thyrotropin [Units/volume] in Serum or Plasma 1.920 u[IU]/mL 0.270-4. 200 [facility] ID Date Data Source [id number] 03/10/2021 09:17:48 AM [facility] Name Value Range Interpretation Code Description Data Irish rce(s) Supporting Document(s) Leukocytes [#/volume] in Blood by Automated count 12.0 10*3/uL 4-10 H [facility] Erythrocytes [#/volume] in Blood by Automated count 2.81 10*6/uL 4.6- 6.1 L [facility] Hemoglobin [Mass/volume] in Blood 10.4 g/dL 13.5-18 L [facility] Hematocrit [Volume Fraction] of Blood by Automated count 31.2 % 4 1-53 L [facility] Erythrocyte mean corpuscular volume [Entitic volume] b y Automated count 111.2 fL 80-96 H [facility] Erythrocyte mean corpuscular hemoglobin [Entitic mass] by Automated count 37.0 pg 27-33 H [facility] Erythrocyte mean corpuscular hemoglobin concentration [Mass/volume] by Automated count 33.3 g/dL 32.0-36.0 [facility] E[facility]th[facility] distribution width [Ratio] by Automated count 16.4 % 11.5-14.5 H [facility] Platelets [#/volume] in Blood by Automated count 312 10*3/uL 150-400 [facility] Differential cell count method - Blood [facility] Neutrophils/100 leukocytes in Blood by Automated count 79 % [facility] Lymphocytes/100 leukocytes in Blood by Automated count 9 % [facility] Monocytes/100 leukocytes in Blood by Automated count 9 % [facility] Eosinophils/100 leukocytes in Blood by Automated count 2 % [facility] Basophils/100 leukocytes in Blood by Automated count 1 % [facility] Neutrophils [#/volume] in Blood by Automated count 9.55 10*3/uL 1.8-7 .0 H [facility] Lymphocytes [#/volume] in Blood by Automated count 1.01 10*3/uL 1.2-4 .0 L [facility] Monocytes [#/volume] in Blood by Automated count 1.10 10*3/uL 0-0.8 H [facility] Eosinophils [#/volume] in Blood by Automated count 0.23 10*3/uL 0-0.5 [facility] Basophils [#/volume] in Blood by Automated count 0.06 10*3/uL 0-0.2 [facility] Nucleated erythrocytes/100 leukocytes [Ratio] in Blood by Automated count 0 /100{WBCs} 0-0 [facility] ID Date Data Source [id number] 03/10/2021 09:47:[address] [facility] Name Value Range Interpretation Code Description Data Irish rce(s) Supporting Document(s) Albumin [Mass/volume] in Serum or Plasma by Bromocresol green (BCG) dye binding method 4.1 g/dL 3.5-5.2 [facility] Bilirubin.total [Mass/volume] in Serum or Plasma 0.2 mg/dL <1.2 [facility] Calcium [Mass/volume] in Serum or Plasma 8.8 mg/dL 8.6-10.0 [facility] Chloride [Moles/volume] in Serum or Plasma 105 mmol/L 98-107 [facility] Creatinine [Mass/volume] in Serum or Plasma 1.07 mg/dL 0.70-1.20 [facility] Glucose [Mass/volume] in Serum or Plasma 97 mg/dL 70-140 [facility] Alkaline phosphatase [Enzymatic activity/volume] in Serum or Plasma 107 U/L 40-129 [facility] Potassium [Moles/volume] in Serum or Plasma 4.2 mmol/L 3.4-5.1 [facility] Protein [Mass/volume] in Serum or Plasma 6.3 g/dL 6.4-8.3 L [facility] Sodium [Moles/volume] in Serum or Plasma 136 mmol/L 136-145 [facility] Aspartate aminotransferase [Enzymatic activity/volume] in Serum or Plasma 14 U/L <40 [facility] Urea nitrogen [Mass/volume] in Serum or Plasma 19 mg/dL 6-20 [facility] Osmolality of Serum or Plasma by calculation 284 mosm/kg 275-300 [facility] Creatinine/Urea nitrogen [Mass Ratio] in Serum or Plasma 18 [facility] Bicarbonate [Moles/volume] in Serum 22 mmol/L 22-29 [facility] Alanine aminotransferase [Enzymatic activity/volume] in Seru m or Plasma 10 U/L <41 [facility] Anion gap 3 in Serum or Plasma 9 mmol/L 8-15 [facility] Glomerular filtration rate/1.73 sq M pre dicted among non-blacks [Volume Rate/Area] in Serum or Plasma by Creatinine-based formula (MDRD) 77 mL/min/1.73m2 >60 [facility] Glomerular filtration rate/1.73 sq M pre dicted among blacks [Volume Rate/Area] in Serum or Plasma by Creatinine-based formula (MDRD) 89 mL/min/1.73m2 >60 [facility] ID Date Data Source [id number] 03/10/2021 09:47:[address] [facility] Hospital Name Value Range Interpretation Code Description Data Irish rce(s) Supporting Document(s) Thyrotropin [Units/volume] in Serum or Plasma 2.590 u[IU]/mL 0.270-4. 200 [facility] ID Date Data Source [id number] 02/24/2021 08:49:29 AM T [facility] Name Value Range Interpretation Code Description Data Irish rce(s) Supporting Document(s) Leukocytes [#/volume] in Blood by Automated count 8.7 10*3/uL 4-10 [facility] Erythrocytes [#/volume] in Blood by Automated count 2.48 10*6/uL 4.6- 6.1 L [facility] Hemoglobin [Mass/volume] in Blood 9.6 g/dL 13.5-18 L [facility] Hematocrit [Volume Fraction] of Blood by Automated count 28.4 % 4 1-53 L [facility] Erythrocyte mean corpuscular volume [Entitic volume] b y Automated count 114.5 fL 80-96 H [facility] Erythrocyte mean corpuscular hemoglobin [Entitic mass] by Automated count 38.6 pg 27-33 H [facility] Erythrocyte mean corpuscular hemoglobin concentration [Mass/volume] by Automated count 33.8 g/dL 32.0-36.0 [facility] E[facility] distribution width [Ratio] by Automated count 18.1 % 11.5-14.5 H [facility] Platelets [#/volume] in Blood by Automated count 343 10*3/uL 150-400 [facility] Differential cell count method - Blood [facility] Neutrophils/100 leukocytes in Blood by Automated count 70 % [facility] Lymphocytes/100 leukocytes in Blood by Automated count 14 % [facility] Monocytes/100 leukocytes in Blood by Automated count 12 % [facility] Eosinophils/100 leukocytes in Blood by Automated count 3 % [facility] Basophils/100 leukocytes in Blood by Automated count 1 % [facility] Neutrophils [#/volume] in Blood by Automated count 6.12 10*3/uL 1.8-7 .0 [facility] Lymphocytes [#/volume] in Blood by Automated count 1.19 10*3/uL 1.2-4 .0 L [facility] Monocytes [#/volume] in Blood by Automated count 1.02 10*3/uL 0-0.8 H [facility] Eosinophils [#/volume] in Blood by Automated count 0.30 10*3/uL 0-0.5 [facility] Basophils [#/volume] in Blood by Automated count 0.04 10*3/uL 0-0.2 [facility] Nucleated erythrocytes/100 leukocytes [Ratio] in Blood by Automated count 0 /100{WBCs} 0-0 [facility] ID Date Data Source [id number] 02/24/2021 09:41:[address] [facility] Name Value Range Interpretation Code Description Data Irish rce(s) Supporting Document(s) Albumin [Mass/volume] in Serum or Plasma by Bromocresol green (BCG) dye binding method 4[facility]3 g[facility] Bil[facility].total [Mass/volume] in Serum or Plasma 0.3 mg/dL <1.2 [facility] Calcium [Mass/volume] in Serum or Plasma 8.6 mg/dL 8.6-10.0 [facility] Chloride [Moles/volume] in Serum or Plasma 107 mmol/L 98-107 [facility] Creatinine [Mass/volume] in Serum or Plasma 1.27 mg/dL 0.70-1.20 H [facility] Glucose [Mass/volume] in Serum or Plasma 85 mg/dL 70-140 [facility] Alkaline phosphatase [Enzymatic activity/volume] in Serum or Plasma 112 U/L 40-129 [facility] Potassium [Moles/volume] in Serum or Plasma 4.1 mmol/L 3.4-5.1 [facility] Protein [Mass/volume] in Serum or Plasma 6.7 g/dL 6.4-8.3 [facility] Sodium [Moles/volume] in Serum or Plasma 142 mmol/L 136-145 [facility] Aspartate aminotransferase [Enzymatic activity/volume] in Serum or Plasma 12 U/L <40 [facility] Urea nitrogen [Mass/volume] in Serum or Plasma 18 mg/dL 6-20 [facility] Osmolality of Serum or Plasma by calculation 295 mosm/kg 275-300 [facility] Creatinine/Urea nitrogen [Mass Ratio] in Serum or Plasma 14 [facility] Bicarbonate [Moles/volume] in Serum 25 mmol/L 22-29 [facility] Alanine aminotransferase [Enzymatic activity/volume] in Seru m or Plasma 10 U/L <41 [facility] Anion gap 3 in Serum or Plasma 10 mmol/L 8-15 [facility] Glomerular filtration rate/1.73 sq M pre dicted among non-blacks [Volume Rate/Area] in Serum or Plasma by Creatinine-based formula (MDRD) 62 mL/min/1.73m2 >60 [facility] Glomerular filtration rate/1.73 sq M pre dicted among blacks [Volume Rate/Area] in Serum or Plasma by Creatinine-based formula (MDRD) 72 mL/min/1.73m2 >60 [facility] ID Date Data Source [id number] 02/17/2021 07:24:15 PM EDT [facility] Name Value Range Interpretation Code Description Data Irish rce(s) Supporting Document(s) Progress Note [facility] IEIOZh2tKoXRGmJx61/BTHcmJCUlm1TjOHimGKs1OPhwIJYpP4OjJSU6pQ8rZTV4UUeQBsWwKwJnZBX3 lbm LrMobGKeHdUYEkLbpWBcIoJOwiGsabnFNdTI7CaGM9YIPtL01qYNCvTBEsM0UqHOH6XwV+Zz0DNNHyyB RtDC4RGhoO3C3abkh7Fr5wnO+BQNAiCWxpl/uSUmKdCHkNvxPTFCbwAnB4zFFiRpsp2yB2Jsx3M/mp3V ckKmv9dERBsNNnQZsUXQvboFjdOCBFMf/8V+2ZwHEc Vfx7+6eJtTq/Un/8g1o38/Rts/CevPB9CZuSY1dR9d6503EJDi/V/uyWlwoJiuo52TlOhs+iqo4rMnsn QanxVIckWbbfmS0orIG3/odll7mXg8hfQra815ehKq7L929ez4pG4jom513Oy8OOR3Szl8sNgvoOIWbo v9JDkjraGSE6TBKR492u31Wz8PS9vVzmch9e33M+6N Ky4AJYPjtxI+1cOdKijMz8Xzyhe7XFkxxDfjB+lxbdct2kVcgPA6u9Qq8on3Kt+pJtzgF3Opk1tRptF9 u+SaKzOD6QQNKkcUldAExzGuaOSArE3OleyUpQ6GZOH0gn3Qg+q0JtVs6Xn/GK2Sedvc/xJ5XxyD+WXR 3hQ5bOeR6J/LAD1im55mrD1rYicgmjnf78409V847R [file] HelbPlvrJPE1QQHgHBMyRMCkLM2tUKDUMs1+NGnxzLAdjHxzECZQHpO4LkMeGTjwQNRGUi3D ID Date Data Source [id number] 02/17/2021 07:24:[address] [facility] Name Value Range Interpretation Code Description Data Irish rce(s) Supporting Document(s) Progress Note [facility] GIHNJy8gYcRSPoLv07/TJHjiUOFpo2ZtBNvgDDe2JEppRIJrF4BaHWK7cF3aGTI2AGyIReUkPkQmDVR6 lbm [file] JItgHDRcYP0zVBHVKz5+YZbwdIXdgAumULJXQaSiPEY5GDsvAVPRWh5Z ID Date Data Source [id number] 01/25/2021 11:50:00 AM EDT [facility] ([facility]) Name Value Range Interpretation Code Description Data Irish rce(s) Supporting Document(s) Glucose [Mass/volume] in Serum or Plasma 89 mg/dL 74-99 [facility] ([facility]) 100-125 mg/dL PRE-DIABETES/FASTING >126 mg/dL DIABETES/FASTING Urea nitrogen [Mass/volume] in Serum or Plasma 28 mg/dL 7-18 [facility] ([facility]) Creatinine 1.4 mg/dL 0.6-1.3 [facility] ([facility]) Sodium [Moles/volume] in Serum or Plasma 141 meq/L 136-145 [facility] ([facility]) Potassium [Moles/volume] in Serum or Plasma 4.8 meq/L 3.5-5.1 [facility] ([facility]) Chloride [Moles/volume] in Serum or Plasma 107 meq/L 98-107 [facility] ([facility]) Carbon dioxide, total [Moles/volume] in Serum or Plasma 27 meq/L 21 -32 [facility] ([facility]) Calcium [Mass/volume] in Serum or Plasma 8.9 mg/dL 8.5-10.1 [facility] Total Bilirubin 0.5 mg/dL 0.2-1.0 [facility] Alkaline phosphatase isoenzyme [Units/volume] in Serum or Pl asma 92 mg/dL 46-116 [facility] ([facility]) Aspartate aminotransferase [Enzymatic activity/volume] in Serum or Plasma 25 U/L 15-37 [facility] ([facility] ) Alanine aminotransferase [Enzymatic activity/volume] in Seru m or Plasma 41 U/L 12-78 [facility] ([facility]) Albumin [Mass/volume] in Serum or Plasma 3.7 g/dL 3.4-5.0 [facility] ([facility]) Glomerular filtration rate/1.73 sq M pre dicted among non-blacks [Volume Rate/Area] in Serum or Plasma by Creatinine-based formula (MDRD) 53 mL/min [facility] ([facility] A/G Ratio 1.19 CALC 1.00-1.90 [facility] Proteinase 3 Ab [Units/volume] in Serum 6.8 g/dL 6.4-8.2 [facility] Glomerular filtration rate/1.73 sq M pre dicted among blacks [Volume Rate/Area] in Serum or Plasma by Creatinine-based formula (MDRD) Laboratory test result [facility] ([facility]) <content>CHRONIC KIDNEY DISEASE STAGING PER NKF</content>
<content></content>
<content>STAGE I & II GFR >= 60 NORMAL TO MILDLY DECREASED</content>
<content>STAGE III GFR 30-59 MODERATELY DECREASED</content>
<content>STAGE IV GFR 15-29 SEVERELY DECREASED</content>
<content>STAGE V GFR <15 VERY LITTLE GFR LEFT</content>
<content>ESRD GFR <15 ON [employer]OTHER[employer]PER[employer] ENGINEER</content>
<content></content> ID Date Data Source [id number] 01/25/2021 11:50:00 AM EDT [facility] Name Value Range Interpretation Code Description Data Irish rce(s) Supporting Document(s) Glucose mean value [Mass/volume] in Blood Estimated fr om glycated hemoglobin 120 mg/dL 60-110 [facility] Hemoglobin A1c/Hemoglobin.total in Blood 5.8 % [facility] ([facility]) Lab Result Notes: Pre-Diabetes 5.7 - 6.4 % Diabetes = or > 6.5% ID Date Data Source [id number] 01/25/2021 11:50:00 AM EDT [facility] ([facility] Name Value Range Interpretation Code Description Data Irish rce(s) Supporting Document(s) Cholesterol [Mass/volume] in Serum or Plasma 171 mg/dL 131-200 [facility] ([facility]) Triglyceride [Mass/volume] in Serum or Plasma 58 mg/dL 30-150 [facility] Cholesterol in HDL [Mass/volume] in Serum or Plasma 58 mg/dL 35-60 [facility] ([facility]) Cholesterol in LDL [Mass/volume] in Serum or Plasma by calcu tejal 101 CALC 50-159 [facility] ([facility]) ID Date Data Source [id number] 01/23/2021 08:14:36 AM EDT [facility] Name Value Range Interpretation Code Description Data Irish rce(s) Supporting Document(s) Progress Note [facility] UERLOb6pScQSNzXc53/OHObsXYVys4OhBPvaVPf3BVxkUNSaQ4OjCZN0vF0kIQI5LZfRArEnNbRjHOMl lb [file] AgICAgICAgICAgICAgICAgICAgICAgICAgICAgICAgICAgICAgICAgICAgICAgICAgICAgICAgICAgIC AgICAgICAgICAgICAgICAgICAgICAgICAgICAgICAg ICAgICAgICANCiAgICAgICAgICAgICAgICAgICAgICAgICAgICAgICAgICAgICAgICAgICAgICAgICAg ICAgICAgICAgICAgICAgICAgICAgICAgICAgICAgICAgICAgICAgICAgICAgICAgICANCiAgICAgICAg ICAgICAgICAgICAgICAgICAgICAgICAgICAgICAgIC AgICAgICAgICAgICAgICAgICAgICAgICAgICAgICAgICAgICAgICAgICAgICAgICAgICAgICAgICAgIC ANCiAgICAgICAgICAgICAgICAgICAgICAgICAgICAgICAgICAgICAgICAgICAgICAgICAgICAgICAgIC AgICAgICAgICAgICAgICAgICAgICAgICAgICAgICAg ICAgICAgICAgICANCiAgICAgICAgICAgICAgICAgICAgICAgICAgICAgICAgICAgICAgICAgICAgICAg ICAgICAgICAgICAgICAgICAgICAgICAgICAgICAgICAgICAgICAgICAgICAgICAgICAgICANCiAgICAg ICAgICAgICAgICAgICAgICAgICAgICAgICAgICAgIC AgICAgICAgICAgICAgICAgICAgICAgICAgICAgICAgICAgICAgICAgICAgICAgICAgICAgICAgICAgIC AgICANCiAgICAgICAgICAgICAgICAgICAgICAgICAgICAgICAgICAgICAgICAgICAgICAgICAgICAgIC AgICAgICAgICAgICAgICAgICAgICAgICAgICAgICAg ICAgICAgICAgICAgICANCiAgICAgICAgICAgICAgICAgICAgICAgICAgICAgICAgICAgICAgICAgICAg ICAgICAgICAgICAgICAgICAgICAgICAgICAgICAgICAgICAgICAgICAgICAgICAgICAgICAgICANCiAg ICAgICAgICAgICAgICAgICAgICAgICAgICAgICAgIC AgICAgICAgICAgICAgICAgICAgICAgICAgICAgICAgICAgICAgICAgICAgICAgICAgICAgICAgICAgIC AgICAgICANCiAgICAgICAgICAgICAgICAgICAgICAgICAgICAgICAgICAgICAgICAgICAgICAgICAgIC AgICAgICAgICAgICAgICAgICAgICAgICAgICAgICAg ICAgICAgICAgICAgICAgICANCjw/cGGiF5jiaCJwmnA3R8guZx9BJf3JGU9gi2JyROHuLSfnfzVxUqgI CeKtQRMnHytWHqr5CNqjTY2QjQQuA0DcN4AvYMhbEI7VCLBzATIdfKCzGYSaAJCsLjI1WCQgHOijIY7W aWRzIFsgNSAwIFIgNyAwIFIgOSAwIFIgMTEgMCBSID YrCMIgSjWmBENpABVaAZ1LDLKbI356bdBuRg4FEe1KGfEjGU8hyx9PMxTfGHYgCwiLSmo2HAngMR4GgY YciFKyCyZxLQYIYaUdS3zvq9FcEkQoGACTRRypNN7Nm4RyvCOxXFi+Lt2FEG2ou6CwDZxrNpYsZW1geg 6YIOtCIdNqT1CxbXpeRVLqo0iwTOEyCJ2enTXrOHH9 BAlolPSqRSCxU3Uxz4xsVEYYNFDasPA5JsPyCrWkAgJgRJk7RuYhOR5xTEgzNY7ZVCV2YIzcKLGjLPNm U7dILuHjDPWeVGPqiNdjEF5OEpMkW0QvtpJuoQJoPAYeSEKYYk0+IIsxwtLuCgvUExI7HDXxo4DeXLw4 IU7PRIGeTQtdZU6QXNNjoJ3kFRpmNY8EVlDnNfNfPR CIXmQfS09poEXbQUx6V6YlByOzBFRrYofuNXVwJNfuNdVsFVFeYcWbEIstCE7+ID4+POhvOQ8GVBirty ZgBAEvCx0KDIZmSNRpYT8xJHWlDYBgR9D7kMkjBDMVCqKqM9ofyjklXR6iIWUpK716pZbrqgDgMPB2ZA LrJh6KBNSmJNB1VOYsgZAmSfDtUKCPOArfJO5LcTYb JCB8eC8sPIyjDNBkFEXvR8oGMyWyhLogYR15qZgoeuTfnXMuIKk+Gd7IYZ3bi3XyJJl5rxFkXPwkHKN3 MWuiVCSuVSOyQEOfFOO5EDD2TWOUQsPhLAJtRSVpJGqxDUVhVXZgcv0CDKWxWFLnIJxxIjAxJYOaOVXk LObcAMPaHEQnDnZdBPKvXMTlLB7KGiIiWYQxVCYoFF raCSZlXVEzfz3IZCVgKPPrMJK6VfPxVDXfOKFsRCrfDIMjQQS0Whr3GAJvSKBwRY4TMrWcCQOtOKjfGN GoYIFsFAWuxy9SEMXvCXDsPPV1YIRjNFEvYPJcCAasIBDmRQNgEXY7EQCsAMJnIY0TMgBtANNwHVC1Ah pxSXJwOYBcyz0OPAEwHLPbDDIdOSFlPNQdTZBaXRgg HOXhVWE3GcEiYBJrQROsRE4BHkEkGWHxWGo6BQNeFGMwLAQddy1NORMzLOJfRpxgBAXjTNQlNRMwFHkw EOHnNZGkDHT5WQRgVBBrPD8ECpBjRGNiLxMkIaVsJVBkRWInlw8MAFVsGYDnZhJ8NVLoAWOhGRLoJJne VLDaNIPuAzgvQIClLEGyWZ9GOvQfLWPkCdC6PtIdPK OsMHSkho8FJKMuCGFgZiNkKHLxBWSdMFWuRPdgTKRkPEJkZqO2GVZbGPUrNS5XCrBuMXWwXnF7AeHuDX OoYPJzxj7JANTqWNXcGBN8MVVqUBQiGZOzEJfbZRQwPJW4Cvk5QYDxOMOdFF0QHuCuMXMjCtA7AXqpMU EfACJvpg7TYXZrZWVlNtLyDBNtRPGtZDMcNKnsLUZs OMC6Jte6FRAwMAZrZT9MNlVfBUZxNuujMwuuANGoRABini2AMUZjMTQdDyStQmImYHKpQIMxUAfvLZIf SQB8AKk4RGXjQWWqHY6QJlVfPDUaSsu1TwemDTXfVMUetk0VCIOfBQFrZWrwLMVtMOGnGVNyNYonGKZr ZGA7RKtySSKwCWXmUG4NDjWlIBJrElllBbYjIOYiIH Blkt6RFIWtPSL7HZq2BVQpQCNuWQOqPYyyUVQgWHYkFCG8NMYwEFUkOG0MVzNjFEYaPHHrZJWgZMLeCU Swmi7QoHAvlJggoh5LRIoETy5KbXbdBQP1KCgvQo0boKSkYpNjMAZUMv8EljXgLDLaUGWCGWdiMRFlXF K4WQGfPVY7PAqsG2JkAzpqOJC9XWO0V9O5NcV6PFYn LzT1NbHtJNS0RtFmJBGgAZIoXYKnJpjfSeshAdD6CpGiFEO+TH7cBHm+Su2Lm9UghkU6glKpIMp6JVM3 OU4DJGTVF8UMUx== ID Date Data Source [id number] 01/20/2021 09:17:55 AM EDT [facility] Name Value Range Interpretation Code Description Data Irish rce(s) Supporting Document(s) Leukocytes [#/volume] in Blood by Automated count 6.3 10*3/uL 4-10 [facility] Erythrocytes [#/volume] in Blood by Automated count 2.08 10*6/uL 4.6- 6.1 L [facility] Hemoglobin [Mass/volume] in Blood 8.0 g/dL 13.5-18 L [facility] Hematocrit [Volume Fraction] of Blood by Automated count 23.3 % 4 1-53 L [facility] Erythrocyte mean corpuscular volume [Entitic volume] b y Automated count 112.1 fL 80-96 H [facility] Erythrocyte mean corpuscular hemoglobin [Entitic mass] by Automated count 38.7 pg 27-33 H [facility] Erythrocyte mean corpuscular hemoglobin concentration [Mass/volume] by Automated count 34.5 g/dL 32.0-[facility] width [Ratio] by Automated count 20.8 % 11.5-14.5 H [facility] Platelets [#/volume] in Blood by Automated count 174 10*3/uL 150-400 [facility] Differential cell count method - Blood [facility] Neutrophils/100 leukocytes in Blood by Automated count 61 % [facility] Lymphocytes/100 leukocytes in Blood by Automated count 17 % [facility] Monocytes/100 leukocytes in Blood by Automated count 20 % [facility] Eosinophils/100 leukocytes in Blood by Automated count 2 % [facility] Basophils/100 leukocytes in Blood by Automated count 0 % [facility] Neutrophils [#/volume] in Blood by Automated count 3.89 10*3/uL 1.8-7 .0 [facility] Lymphocytes [#/volume] in Blood by Automated count 1.07 10*3/uL 1.2-4 .0 L [facility] Monocytes [#/volume] in Blood by Automated count 1.24 10*3/uL 0-0.8 H [facility] Eosinophils [#/volume] in Blood by Automated count 0.11 10*3/uL 0-0.5 [facility] Basophils [#/volume] in Blood by Automated count 0.03 10*3/uL 0-0.2 [facility] Nucleated erythrocytes/100 leukocytes [Ratio] in Blood by Automated count 0 /100{WBCs} 0-0 [facility] ID Date Data Source [id number] 01/20/2021 09:48:[address] [facility] Name Value Range Interpretation Code Description Data Irish rce(s) Supporting Document(s) Albumin [Mass/volume] in Serum or Plasma by Bromocresol green (BCG) dye binding method 4.0 g/dL 3.5-5.2 [facility] Bilirubin.total [Mass/volume] in Serum or Plasma 0.2 mg/dL <1.2 [facility] Calcium [Mass/volume] in Serum or Plasma 8.9 mg/dL 8.6-10.0 [facility] Chloride [Moles/volume] in Serum or Plasma 104 mmol/L 98-107 [facility] Creatinine [Mass/volume] in Serum or Plasma 1.29 mg/dL 0.70-1.20 H [facility] Glucose [Mass/volume] in Serum or Plasma 91 mg/dL 70-140 [facility] Alkaline phosphatase [Enzymatic activity/volume] in Serum or Plasma 98 U/L 40-129 [facility] Potassium [Moles/volume] in Serum or Plasma 4.4 mmol/L 3.4-5.1 [facility] Protein [Mass/volume] in Serum or Plasma 6.5 g/dL 6.4-8.3 [facility] Sodium [Moles/volume] in Serum or Plasma 138 mmol/L 136-145 [facility] Aspartate aminotransferase [Enzymatic activity/volume] in Serum or Plasma 14 U/L <40 [facility] Urea nitrogen [Mass/volume] in Serum or Plasma 18 mg/dL 6-20 [facility] Osmolality of Serum or Plasma by calculation 287 mosm/kg 275-300 [facility] Creatinine/Urea nitrogen [Mass Ratio] in Serum or Plasma 14 [facility] Bicarbonate [Moles/volume] in Serum 22 mmol/L 22-29 [facility] Alanine aminotransferase [Enzymatic activity/volume] in Seru m or Plasma 12 U/L <41 [facility] Anion gap 3 in Serum or Plasma 11 mmol/L 8-15 [facility] Glomerular filtration rate/1.73 sq M pre dicted among non-blacks [Volume Rate/Area] in Serum or Plasma by Creatinine-based formula (MDRD) 61 mL/min/1.73m2 >60 [facility] Glomerular filtration rate/1.73 sq M pre dicted among blacks [Volume Rate/Area] in Serum or Plasma by Creatinine-based formula (MDRD) 71 mL/min/1.73m2 >60 [facility] ID Date Data Source [id number] 01/07/2021 06:46:37 AM [facility] Name Value Range Interpretation Code Description Data Irish rce(s) Supporting Document(s) ABO and Rh group [Type] in Blood [facility] Blood group antibody screen [Presence] in Serum or Plasma [facility] Performed at [facility], [place] [facility] AT [facility] Blood bank comment [facility] ID Date Data Source [id number] 01/06/2021 09:19:55 AM [facility] Name Value Range Interpretation Code Description Data Irish rce(s) Supporting Document(s) Leukocytes [#/volume] in Blood by Automated count 6.4 10*3/uL 4-10 [facility] Erythrocytes [#/volume] in Blood by Automated count 2.23 10*6/uL 4.6- 6.1 L [facility] Hemoglobin [Mass/volume] in Blood 8.5 g/dL 13.5-18 L [facility] Hematocrit [Volume Fraction] of Blood by Automated count 24.7 % 4 1-53 L [facility] Erythrocyte mean corpuscular volume [Entitic volume] b y Automated count 110.3 fL 80-96 H [facility] Erythrocyte mean corpuscular hemoglobin [Entitic mass] by Automated count 38.1 pg 27-33 H [facility] Erythrocyte mean corpuscular hemoglobin concentration [Mass/volume] by Automated count 34.5 g/dL 32.0-36.0 [facility] Erythrocyte distribution width [Ratio] by Automated count 19.1 % 11.5-14.5 H [facility] Platelets [#/volume] in Blood by Automated count 156 10*3/uL 150-400 [facility] Differential cell count method - Blood [facility] Neutrophils/100 leukocytes in Blood by Automated count 61 % [facility] Lymphocytes/100 leukocytes in Blood by Automated count 18 % [facility] Monocytes/100 leukocytes in Blood by Automated count 19 % [facility] Eosinophils/100 leukocytes in Blood by Automated count 2 % [facility] Basophils/100 leukocytes in Blood by Automated count 0 % [facility] Neutrophils [#/volume] in Blood by Automated count 3.83 10*3/uL 1.8-7 .0 [facility] Lymphocytes [#/volume] in Blood by Automated count 1.18 10*3/uL 1.2-4 .0 L [facility] Monocytes [#/volume] in Blood by Automated count 1.24 10*3/uL 0-0.8 H [facility] Eosinophils [#/volume] in Blood by Automated count 0.15 10*3/uL 0-0.5 [facility] Basophils [#/volume] in Blood by Automated count 0.03 10*3/uL 0-0.2 [facility] Nucleated erythrocytes/100 leukocytes [Ratio] in Blood by Automated count 0 /100{WBCs} 0-0 [facility] ID Date Data Source [id number] 01/06/2021 10:01:34 AM EDT [facility] Name Value Range Interpretation Code Description Data Irish rce(s) Supporting Document(s) Albumin [Mass/volume] in Serum or Plasma by Bromocresol green (BCG) dye binding method 4.1 g/dL 3.5-5.2 [facility] al Bilirubin.total [Mass/volume] in Serum or Plasma 0.2 mg/dL <1.2 [facility] Calcium [Mass/volume] in Serum or Plasma 9.2 mg/dL 8.6-10.0 [facility] Chloride [Moles/volume] in Serum or Plasma 107 mmol/L 98-107 [facility] Creatinine [Mass/volume] in Serum or Plasma 1.39 mg/dL 0.70-1.20 H [facility] Glucose [Mass/volume] in Serum or Plasma 93 mg/dL 70-140 [facility] Alkaline phosphatase [Enzymatic activity/volume] in Serum or Plasma 97 U/L 40-129 [facility] Potassium [Moles/volume] in Serum or Plasma 4.0 mmol/L 3.4-5.1 [facility] Protein [Mass/volume] in Serum or Plasma 6.3 g/dL 6.4-8.3 L [facility] Sodium [Moles/volume] in Serum or Plasma 141 mmol/L 136-145 [facility] Aspartate aminotransferase [Enzymatic activity/volume] in Serum or Plasma 15 U/L <40 [facility] Urea nitrogen [Mass/volume] in Serum or Plasma 18 mg/dL 6-20 [facility] Osmolality of Serum or Plasma by calculation 294 mosm/kg 275-300 [facility] Creatinine/Urea nitrogen [Mass Ratio] in Serum or Plasma 13 [facility] Bicarbonate [Moles/volume] in Serum 22 mmol/L 22-29 [facility] Alanine aminotransferase [Enzymatic activity/volume] in Seru m or Plasma 15 U/L <41 [facility] Anion gap 3 in Serum or Plasma 12 mmol/L 8-15 [facility] Glomerular filtration rate/1.73 sq M pre dicted among non-blacks [Volume Rate/Area] in Serum or Plasma by Creatinine-based formula (MDRD) 56 mL/min/1.73m2 >60 L [facility] Glomerular filtration rate/1.73 sq M pre dicted among blacks [Volume Rate/Area] in Serum or Plasma by Creatinine-based formula (MDRD) 65 mL/min/1.73m2 >60 [facility] ID Date Data Source [id number] 12/29/2020 03:23:[address] [facility] Hospital Name Value Range Interpretation Code Description Data Irish rce(s) Supporting Document(s) Progress Note [facility] XZWWFn1sOqPOGaLg88/XOItxBFRzy4WmSAjqUJf7QZvoCMVyD3NhAGF9iW2sGGQ7FQaYLpZkKzLeUuV1 [facility] TyAhnAPxNqQCCrUrsTJmAtUSlqBthqtMPbMS9UoQK2ESRlS86uRVEiOSPhU5AwHHZ7OMu+Sf3UWPFdxU JmTJ6ILrxM0P49h0nEAl//mRbTQggzWZuR3dkZDRj15+Vem6nOPfmO/LSinNKPQ5bNanfe1b6noZcN1d fkgcplTtEaWCDXRa01UvgnryDwrNu/r8cj5RdYcNx/ EB2WO0lcNbVa/8K53QketccuB+tEXnCsyAqLF/RX177+wpO+8f1uDO3h2i/cx7IKSU6vl81E7LvZblEY YJeuAmgnmZUionS71zGg+yPlRpYf++7Hhw9V/1f1vK/wmCVvH4RyM4E8KvjyBqi2fQnw0dT4wGYloRBd GUu3qfHfr2NFup3ic84E1zaUnu7j2KEJfpCLNz5aOn hQjA2zr3rVFGgFfnHrE801Rm5UxqJHXl1D4SDQOtbbGWxzM/RxjrwRLCEieQA4P5vqZka1A4vEpls4Cj pRLyATLtLr2jiehQzfwlNJZsEvwdKq0Sgz73M+WpcEm/n3QJoJfPJIsyUD0U2rg8baGVj0L+RDHyZjQ4 e815Y7OMh8oPj72bn3nCUGg0XN9+X6Jw5WX54KmrC9 [file] ICAgICAgICAgICAgICAgICAgICAgICAgICAgICAgIC AgICAgICAgICAgICAgICAgICANCiAgICAgICAgICAgICAgICAgICAgICAgICAgICAgICAgICAgICAgIC AgICAgICAgICAgICAgICAgICAgICAgICAgICAgICAgICAgICAgICAgICAgICAgICAgICAgICAgICAgIC ANCiAgICAgICAgICAgICAgICAgICAgICAgICAgICAg ICAgICAgICAgICAgICAgICAgICAgICAgICAgICAgICAgICAgICAgICAgICAgICAgICAgICAgICAgICAg ICAgICAgICAgICANCiAgICAgICAgICAgICAgICAgICAgICAgICAgICAgICAgICAgICAgICAgICAgICAg ICAgICAgICAgICAgICAgICAgICAgICAgICAgICAgIC AgICAgICAgICAgICAgICAgICAgICANCiAgICAgICAgICAgICAgICAgICAgICAgICAgICAgICAgICAgIC AgICAgICAgICAgICAgICAgICAgICAgICAgICAgICAgICAgICAgICAgICAgICAgICAgICAgICAgICAgIC AgICANCiAgICAgICAgICAgICAgICAgICAgICAgICAg ICAgICAgICAgICAgICAgICAgICAgICAgICAgICAgICAgICAgICAgICAgICAgICAgICAgICAgICAgICAg ICAgICAgICAgICAgICANCiAgICAgICAgICAgICAgICAgICAgICAgICAgICAgICAgICAgICAgICAgICAg ICAgICAgICAgICAgICAgICAgICAgICAgICAgICAgIC AgICAgICAgICAgICAgICAgICAgICAgICANCiAgICAgICAgICAgICAgICAgICAgICAgICAgICAgICAgIC AgICAgICAgICAgICAgICAgICAgICAgICAgICAgICAgICAgICAgICAgICAgICAgICAgICAgICAgICAgIC AgICAgICANCiAgICAgICAgICAgICAgICAgICAgICAg ICAgICAgICAgICAgICAgICAgICAgICAgICAgICAgICAgICAgICAgICAgICAgICAgICAgICAgICAgICAg ICAgICAgICAgICAgICAgICANCiAgICAgICAgICAgICAgICAgICAgICAgICAgICAgICAgICAgICAgICAg ICAgICAgICAgICAgICAgICAgICAgICAgICAgICAgIC AgICAgICAgICAgICAgICAgICAgICAgICAgICANCjw/pRGrA3rvqAQoxtY8H2npRj5SSn8JCP9hi4VfSD AwTEhoddVqJaqJDbOcDVJmBxdDUtf6UTjyKU3NvHHnK7UnM0UsLHwcHO1GBRKbHLZmfXRpIHBsZAPzLi M1YYJdTDxpOO9JfVBcVEnzANIgJYUbUsSxMSTnNYYz CPAfCWWpVQOWXNDfVWQwZiLqUVOhIUIcQYwtWOLDOI2PVoRnC7XmxZ11UCfBUx1+DQplbmRvYmoNCjM3 KTCdv2ZxMSt3UB4HHABcNoegk5YuSfjsZOXFJGvyRJ4LSIS0XUM5BGPtQk6YQPIuS983pdOeUY1ZDo3F VhJxDU5sab2GVvgjDGHkApeGKvn9CHvtSV3UqDHnQM xXcj7sfzQvfbNUc5VinaEhyIJPJEKoCTLCZOXspiYxQCqnMgSfDRXbVn0yBn3lQDGyCLD7YbVdRRYBZB 8HMNUeOOXehYNkVFVdWOCTEX2WOYbkDUA4LHJajwGpjGAoYDvdQP1NBCKvtlGpGyfyZOTTMCz+Pg0KZW 6nd4QsEZooENWpLL1cwa3IXGiIQrXsN9W0eZFeU5W6 PIcjTu6CNBZoDYPpHrNnOXDKZAtoUH7QVO0kcpS7AB8XsNNwHFOpFAWfdRQpOBl7O66mvEQgETheXV9T ICA+Zeferino+Ky0KJVNuFWTgSOMeFcZsGYFLAfHiO7OoO0TBc1VnJ1LkEY11sUdxuyHuERleAF4ANI8rUSPz NQRYII5QjIRidK7rtnJfAdXmDELCKuLwH99otJKfFZ SwRXJ7GFTfBr7AQOEeI3RaziZmaXbulaLhTEBvXTLGHW8EDKvahxYidCAbkOnyYG86nUjwHE2IKt9LDz UfVI4siy8LmBWgFa8LGXD3MK9GMORaOTVcDDKjWYZ2AYZqEfRtAUrfULIhOSOqQDW7KBZxNCJiIJ9UJa FnBIOjHIL8ELlzWWKaEVMjmd0CVHKpGZO4NzG1WOSw BDKiFDHzHFalZTQfLSYcNWK7YRKeDQYkJD7LAfSgTKLfBQYvMWMfASGrLIIpbw4UPRUvGLEvESR5OZSc QUBnXLWdGJicBRIzFXP3GOOwFYOvYJPuXS2FXiTuYAXxJZgpPxOpKLEbHPOxvb6ZKWTpGXCxQXv2AUXz BUCaNYQuFSayTAWiFPOhAPd5IPRoRYZbPB2ZLkLoUF KtSLO5GYgdDQJqEUZaxa3NCCCwUPShBGlaISYuDJQoWCOyLDabMZMqWTP2XYO6BXCuWFJySV0EZzRyWG XiUTanZoItAKBvPXXlrv3KYEMeTHCzLsEhMhJgXWGsHOOhAFfsDDYnNNYgAQFkSJKtBMXpAN7FAiHfIE LbIlZ2OMQjMJOmADOxsf2NDSLxCVVsUdmcGPDhGNHm ZGMjXXwcTLJoCMY3HhgmLWZaJAOmQM4NCwTeEWNlIwE2PadoGPZaKVRytu5MKNUxRDSfSFI3AMNtCVPd OAIcABxdLACeZJE7FDJzCPMmOCLrVN5JUxUeOLPiEvHrMpDeEVTdWYAiuc6GRCAnJAPnGsHwYFMwPEFn AEMlMAhxPDItQTY6AHMxPNHvRZMiFC9YGlCzSEXcGj poEzMiOBFoXZMapk8HYHAkAUOoPFS5LGTmWFGtGJQiCPvdGCVeKOF2XaZ4ONLwFTGmCI7QNwGeKEWfJq a4WoYhPAKrOFDsaj2YFLUmEOBsBTocEGVaIFDdUGDlMCdgXOXiXYPlGGGuWCAkZWCkTL4ABnFtHNDcKR SdCOQbHSBjNKOmmc7ORRNeARA1ZVXiWLEhMOOkZFEu TIcoNSTwVBDiWfT4ZRRwNJCnSV7ZEzArOSWtIUA6BaUoVERhMXSodz8TWNHfURC9LNefNKMeRRUoZPBx ECjaGGDzDUPqPry7DYMjINGpJW3UJoWvCPAmERK5DCgxMTLkJBZuec4WHVFeMVX9IxLvGeZeNJRoGIJg SFv0biRzfKMaRNn4UW1RZ7UypoXxBWTHSp2Wn759BB J2HCXuJz6ZY8adTv4ePDCqZRLOLb0DENm5LBYuFJAeQ0K3JCN1OURbGDV9QbWpVXDsFhk8EUPrMRO+ID jbQTH8RrEfQYucJYCaFcO3Kcs7FETuHIYpSaHnOaXxHY4vCDHLDl1+DQpzdGFydHhyZWYNCjQzODUxDQ [id number] ID Date Data Source [id number] 12/23/2020 08:38:[address] [facility] Name Value Range Interpretation Code Description Data Irish rce(s) Supporting Document(s) Leukocytes [#/volume] in Blood by Automated count 7.4 10*3/uL 4-10 [facility] Erythrocytes [#/volume] in Blood by Automated count 2.53 10*6/uL 4.6- 6.1 L [facility] Hemoglobin [Mass/volume] in Blood 9.6 g/dL 13.5-18 L [facility] Hematocrit [Volume Fraction] of Blood by Automated count 27.6 % 4 1-53 L [facility] Erythrocyte mean corpuscular volume [Entitic volume] b y Automated count 109.1 fL 80-96 H [facility] Erythrocyte mean corpuscular hemoglobin [Entitic mass] by Automated count 37.9 pg 27-33 H [facility] Erythrocyte mean corpuscular hemoglobin concentration [Mass/volume] by [facility] 34[facility]8 g[facility] width [Ratio] by Automated count 19.1 % 11.5-14.5 H [facility] Platelets [#/volume] in Blood by Automated count 146 10*3/uL 150-400 L [facility] Differential cell count method - Blood [facility] Neutrophils/100 leukocytes in Blood by Automated count 65 % [facility] Lymphocytes/100 leukocytes in Blood by Automated count 15 % [facility] Monocytes/100 leukocytes in Blood by Automated count 18 % [facility] Eosinophils/100 leukocytes in Blood by Automated count 2 % [facility] Basophils/100 leukocytes in Blood by Automated count 0 % [facility] Neutrophils [#/volume] in Blood by Automated count 4.80 10*3/uL 1.8-7 .0 [facility] Lymphocytes [#/volume] in Blood by Automated count 1.07 10*3/uL 1.2-[address] [facility] Monocytes [#/volume] in Blood by Automated count 1.29 10*3/uL 0-0.8 H [facility] Eosinophils [#/volume] in Blood by Automated count 0.16 10*3/uL 0-0.5 [facility] Basophils [#/volume] in Blood by Automated count 0.03 10*3/uL 0-0.2 [facility] Nucleated erythrocytes/100 leukocytes [Ratio] in Blood by Automated count 0 /100{WBCs} 0-0 [facility] ID Date Data Source [id number] 12/23/2020 09:11:04 AM EDT [facility] Name Value Range Interpretation Code Description Data Irish rce(s) Supporting Document(s) Albumin [Mass/volume] in Serum or Plasma by Bromocresol green (BCG) dye binding method 4.0 g/dL [facility].5-5.[facility] Bil[facility].total [Mass/volume] in Serum or Plasma 0.3 mg/dL <1.2 [facility] Calcium [Mass/volume] in Serum or Plasma 9.4 mg/dL 8.6-10.0 [facility] Chloride [Moles/volume] in Serum or Plasma 105 mmol/L 98-107 [facility] Creatinine [Mass/volume] in Serum or Plasma 1.31 mg/dL 0.70-1.20 H [facility] Glucose [Mass/volume] in Serum or Plasma 82 mg/dL 70-140 [facility] Alkaline phosphatase [Enzymatic activity/volume] in Serum or Plasma 101 U/L 40-129 [facility] Potassium [Moles/volume] in Serum or Plasma 4.3 mmol/L 3.4-5.1 [facility] Protein [Mass/volume] in Serum or Plasma 6.7 g/dL 6.4-8.3 [facility] Sodium [Moles/volume] in Serum or Plasma 136 mmol/L 136-145 [facility] Aspartate aminotransferase [Enzymatic activity/volume] in Serum or Plasma 16 U/L <40 [facility] Urea nitrogen [Mass/volume] in Serum or Plasma 19 mg/dL 6-20 [facility] Osmolality of Serum or Plasma by calculation 284 mosm/kg 275-300 [facility] Creatinine/Urea nitrogen [Mass Ratio] in Serum or Plasma 15 [facility] Bicarbonate [Moles/volume] in Serum 23 mmol/L 22-29 [facility] Alanine aminotransferase [Enzymatic activity/volume] in Seru m or Plasma 17 U/L <41 [facility] Anion gap 3 in Serum or Plasma 9 mmol/L 8-15 [facility] Glomerular filtration rate/1.73 sq M pre dicted among non-blacks [Volume Rate/Area] in Serum or Plasma by Creatinine-based formula (MDRD) 60 mL/min/1.73m2 >60 L [facility] Glomerular filtration rate/1.73 sq M pre dicted among blacks [Volume Rate/Area] in Serum or Plasma by Creatinine-based formula (MDRD) 70 mL/min/1.73m2 >60 [facility] ID Date Data Source [id number] 12/19/2020 12:32:10 AM EDT [facility] Name Value Range Interpretation Code Description Data Irish rce(s) Supporting Document(s) Progress Note [facility] HWHDJi9iPpLNEzYy64/TLXrePQQuf1UuNVmrATt4NNjrPJRbR6NoNXF6kN7aVDI0ECqPZuJmFwQyKjY1 lbm AkWalYDoNdVHMxRxbBDwUsHHvvMxzlmYBcQB7PyTE1BVOhQ50sIXMiYPRdQ1CoZDL7Gbk+Qe2KBPEbhF GoSJ0WMdzL4N0qrdo9Yv1krm0FpYYkPWM4gPFm4sIkrEV2emZitvf3mLvyDshtUDPxCBCR6hX/Weber/t8V [file] VrL3JXGlDnT2JxZoUXU0UEjjFM9ySTEYWt0+CWepaGDxyKnbHAUUNiW0EJWhBXjyKOVOYs4S ID Date Data Source [id number] 12/19/2020 12:32:05 AM EDT [facility] Name Value Range Interpretation Code Description Data Irish rce(s) Supporting Document(s) Progress Note [facility] CDAOLu3gMbEFQoIy12/EDPofQDHgr9FfVEtvUDn9TVuyKYDfO5PoNTP8iL9jBJR0FUgSTxNjNvVjVgT5 lbm [file] NmNWJkZjM+XR1iLIw+Rf9Ur1IdwpH0sbUqTGp5FvVgLW0CLZUUC4YWFp== ID Date Data Source [id number] [facility] Value Range Interpretation Code Description Data Irish rce(s) Supporting Document(s) Progress Note [facility] OHTWRo3gUgQUWnGw96/VJGfcNQXli3AeQQtnWJc3HYayKDGgW5VhBGS1mW3aYYZ7XVfHSbReKvZoRlUt lbm [file] ULTZAh8G ID Date Data Source [id number] 12/11/2020 10:58:[address] [facility] Hospital Name Value Range Interpretation Code Description Data Irish rce(s) Supporting Document(s) Progress Note [facility] FVYWWf1dIfDGFpGi41/HWIqfWCPqb5ZsPEutIYn7LHiaIWMlC0QrJBW1rU3cPXI8MEaHNgOtIsCcMxOs lbm [file] AgICAgICAgICAgICAgICAgICAgICAgICAgICAgICAgICAgICAgICAgICAgICAgICAgICAgICAgICAgIC AgICAgICAgICAgICAgICAgICAgICAgDQogICAgICAgICAgICAgICAgICAgICAgICAgICAgICAgICAgIC AgICAgICAgICAgICAgICAgICAgICAgICAgICAgICAg ICAgICAgICAgICAgICAgICAgICAgICAgICAgICAgICAgDQogICAgICAgICAgICAgICAgICAgICAgICAg ICAgICAgICAgICAgICAgICAgICAgICAgICAgICAgICAgICAgICAgICAgICAgICAgICAgICAgICAgICAg ICAgICAgICAgICAgICAgDQogICAgICAgICAgICAgIC AgICAgICAgICAgICAgICAgICAgICAgICAgICAgICAgICAgICAgICAgICAgICAgICAgICAgICAgICAgIC AgICAgICAgICAgICAgICAgICAgICAgICAgDQogICAgICAgICAgICAgICAgICAgICAgICAgICAgICAgIC AgICAgICAgICAgICAgICAgICAgICAgICAgICAgICAg ICAgICAgICAgICAgICAgICAgICAgICAgICAgICAgICAgICAgDQogICAgICAgICAgICAgICAgICAgICAg ICAgICAgICAgICAgICAgICAgICAgICAgICAgICAgICAgICAgICAgICAgICAgICAgICAgICAgICAgICAg ICAgICAgICAgICAgICAgICAgDQogICAgICAgICAgIC AgICAgICAgICAgICAgICAgICAgICAgICAgICAgICAgICAgICAgICAgICAgICAgICAgICAgICAgICAgIC AgICAgICAgICAgICAgICAgICAgICAgICAgICAgDQogICAgICAgICAgICAgICAgICAgICAgICAgICAgIC AgICAgICAgICAgICAgICAgICAgICAgICAgICAgICAg ICAgICAgICAgICAgICAgICAgICAgICAgICAgICAgICAgICAgICAgDQogICAgICAgICAgICAgICAgICAg ICAgICAgICAgICAgICAgICAgICAgICAgICAgICAgICAgICAgICAgICAgICAgICAgICAgICAgICAgICAg ICAgICAgICAgICAgICAgICAgICAgDQogICAgICAgIC AgICAgICAgICAgICAgICAgICAgICAgICAgICAgICAgICAgICAgICAgICAgICAgICAgICAgICAgICAgIC HgOQQgTZUqDPXsQIMuPRKeZJXuNLHmLRKzNHMoVMPaCFh2W4twKEUyCTQcIZ5bWPv9Tx1+DQoNCmVuZH P3gmVjeM7YUB1oq5BoDTucELCtn9OdISs9SW7TQRSb MLwqYP2EXYthyt8CMMYlERKnfZIMn7lyHaOqTTS6WUPaJugpHX8ZBQLwA2prjdVlHJGzEMEBDAgnDCCP ZQjtULTPOZJmIZWaIyHnQuGhZZLjSTEsHKEDCJF4BIVnKsQgTLahOQ8Jj9GmlMY7CGz+Ch4JCF5lh7Lb HKhcGOWlXU3xuw7ABFhQQkMkU1ClrzG7OWD1JNNbDg 7NFBIsIKSriQVtZBUtUQICZdRuY8FcvI02AZTWOa7+HAxipaThEvoQRwO3RNIja9FtNCw1DE1YCUZsCP t4qKMlJZUwM7Tnd4GvLe88XZQwVeeyCCX7pyXlVcYPNX6fm8JeWV4OOYH6DZOgRO7xAGPiWBH8JmG6IY TTBE6EBCKxTSAxnUTgOXTdUPJSFI2SCZqiUJO3GIDb icPbzIJdLLfyJR0VWRMqngKgEtEbFRQEXDi+Eb9XNE2wh1GoCTjlOxSaQH7qsh3AMDvRGnAxU6W7tPLh Q7D4ZWbcCh5JLOBjJVGfIsJzHUPDWLkeLC9ENH1aspT7XU6TvWHcKJFdNHOntYBoBZg0H58ccGGjQReu XE2UCYP+Zeferino+Dn7TTOXiSVLtOIPxVzIjOMNHUpZaB0 QfH0DVm8SmG5WyEW02gBgjcnLiOToyYW1VHJ5yZTWjWSVAXA6FdBHikY4omlEbVAFmJWSGSgMkQ69glZ CeBDSqEJZrQXMqDn9TDAIjN9UbfzMsxGdyayUdYVRaWDLRLC3ZCMutbjHfxXRrvZvbXM91oFetYG6SAo 5WIkIkXP2oud2AgZFuBy6RXZGxMc3BRFUkNIPiUFTe TQK5BNVtIaXcIYvaTBKmNPUpVPB7UOYnYLGfHH3WExStWPQaLTS4RxTvBUDqYCMfbt0UJPQtKAA1Bzdz LhXkRIItNVJjIFxwDUCkCENrIVM7GPVjQHCjXQ3JNhCkCUAjPQIiYDtqTBYgVWXfcv9HDKHaGVFqYIHl EoMqHTPfUVKkNIhiHCDqMYR6KKZyILUfQEQsJT4TDv JlMWWxVDsaNeEzEJWpCCXuhh7ZXNBlUEPeDMlmVFWbSWLsPGQoPDjjIQSlRWCeAVB2RMJmGRHsTB2WMo AqOIBkXLQ7ZDLnHPIzCGCauh4DYUWlXOBhHLW2LGXgGTSlYPJiSJiiTROfLML3HgP0CZPjIDRrVN8WJe YxGXOvYAi3BSKhVEMsIEYqig3NHTClSRJhLzS4KcXz HGUxBBEiDRfoKKDbKKAlFtqkZDQnRTVzIR5HMeVlTTRkVdYzHBZmTINwLOHutp7RZMGpCFXzHYV4PYRg LFFbHLNqSRilCJWvVIP7PLJpZNOqDJDxUA1CYuFlKECbRmZ1ZFqeZDBiLWPsrl8KMCSlUQLeVMplGDWq WRIiDZFzKLymYRNkXNN6GScmMGLbFRTeXN0JPhUtJT JmYefsPBTuOVUoHPRavf0QYPIvCXOqCiL8CWXfSFQwKYVfSRmbHTToVEF2AbIpKETpWZQfTB9ONsDzHN PxEigwEpZdOSDdYCDwdr8IWZOoZJZdGHA0LGEdOVKyKQHmPRnpGBDrREK5KBb3DHHbUTVoTH8AMgRqRI NmHwy4LWDqVDJrKXIcnc8FIFNdQMA0OID2BSThADKj REKcZWqbXKXsTTDgScphFOGfSTVzPM5VNbUzWWUrCUD0JCJmBPKhZHJaci9FLEHiWCZ2UKW2HqUsJZVm RPEtFTmoMRDrDVXbIXT4YVUpYOCuAX5FPhVwCVSvGZP6OAVhHFWdQAThum2CTMMbWEV2QmR3YFAuMXQf HEFkFBm0xhXonCNcARo9JD1VN2BtlyQxEueCUx2Rr0 21UXV4UUIiYl6BP0lbOn7oSWWdRJECJk6VBYv1FfMgFpRdC4WqGvorT9C0SYN2QBzvHnY2EPGvP3R4Nm Q+ADaoXPWmUKT0HpNgBKB7VWi2KLw8ZeTqOYmlY2T8IbFiFK6yFWDTEk5+DQpzdGFydHhyZWYNCjQzMz J4VPepFIBYMb4P ID Date Data Source [id number] 12/10/2020 10:39:05 PM EDT [facility] Name Value Range Interpretation Code Description Data Irish rce(s) Supporting Document(s) Progress Note [facility] UNOBIi2zYoFVTqQj21/DXNrvEXOji0DlKNsnSEy7QNfwGCBgO0GqYZF1xA5zQLE0WAoYXiWhMhUxYyOl lbm [file] ZwON0QMd9KNiU8QOD0fGRiQs3KKyQqAUNPFgIvHW7EKVn= ID Date Data Source [id number] 12/10/2020 10:39:[address] [facility] Hospital Name Value Range Interpretation Code Description Data Irish rce(s) Supporting Document(s) Progress Note [facility] SMEGAw2cSlZLBbAz72/OTCorSUIxz8HcGQgvRHy2FGtsQISzH1JhTFV3eN3qTLJ4VQbTGvFzZyAlQuAi lbm [file] njZSXlQcSrHV4IVd1LLeY5UFH7pKRhIi6FGHJrSJtIHvAiKN7HVUi= ID Date Data Source [id number] 2020 08:30:20 AM EDT [facility] Name Value Range Interpretation Code Description Data Irish e(s) Supporting Document(s) Leukocytes [#/volume] in Blood by Automated count 5.1 10*3/uL 4-10 [facility] Erythrocytes [#/volume] in Blood by Automated count 2.69 10*6/uL 4.6- 6.1 L [facility] Hemoglobin [Mass/volume] in Blood 10.0 g/dL 13.5-18 L [facility] Hematocrit [Volume Fraction] of Blood by Automated count 28.8 % 4 1-53 L [facility] Erythrocyte mean corpuscular volume [Entitic volume] b y Automated count 107.1 fL 80-96 H [facility] Erythrocyte mean corpuscular hemoglobin [Entitic mass] by Automated count 37.2 pg 27-33 H [facility] Erythrocyte mean corpuscular hemoglobin concentration [Mass/volume] by Automated count 34.7 g/dL 32.0-36.0 [facility] E[facility]th[facility] distribution width [Ratio] by Automated count 20.0 % 11.5-14.5 H [facility] Platelets [#/volume] in Blood by Automated count 301 10*3/uL 150-400 [facility] Differential cell count method - Blood [facility] Neutrophils/100 leukocytes in Blood by Automated count 58 % [facility] Lymphocytes/100 leukocytes in Blood by Automated count 18 % [facility] Monocytes/100 leukocytes in Blood by Automated count 21 % [facility] Eosinophils/100 leukocytes in Blood by Automated count 2 % [facility] Basophils/100 leukocytes in Blood by Automated count 1 % [facility] Neutrophils [#/volume] in Blood by Automated count 2.98 10*3/uL 1.8-7 .0 [facility] Lymphocytes [#/volume] in Blood by Automated count 0.91 10*3/uL 1.2-4 .0 L [facility] Monocytes [#/volume] in Blood by Automated count 1.10 10*3/uL 0-0.8 H [facility] Eosinophils [#/volume] in Blood by Automated count 0.11 10*3/uL 0-0.5 [facility] Basophils [#/volume] in Blood by Automated count 0.03 10*3/uL 0-0.2 [facility] Nucleated erythrocytes/100 leukocytes [Ratio] in Blood by Automated count 0 /100{WBCs} 0-0 [facility] ID Date Data Source [id number] 2020 09:02:[address] [facility] Hospital Name Value Range Interpretation Code Description Data Irish rce(s) Supporting Document(s) Albumin [Mass/volume] in Serum or Plasma by Bromocresol green (BCG) dye binding method 3.9 g/dL 3.5-5.2 [facility] Bilirubin.total [Mass/volume] in Serum or Plasma 0.2 mg/dL <1.2 [facility] Calcium [Mass/volume] in Serum or Plasma 9.0 mg/dL 8.6-10.0 [facility] Chloride [Moles/volume] in Serum or Plasma 103 mmol/L 98-107 [facility] Creatinine [Mass/volume] in Serum or Plasma 1.30 mg/dL 0.70-1.20 H [facility] Glucose [Mass/volume] in Serum or Plasma 98 mg/dL 70-140 [facility] Alkaline phosphatase [Enzymatic activity/volume] in Serum or Plasma 109 U/L 40-129 [facility] Potassium [Moles/volume] in Serum or Plasma 4.3 mmol/L 3.4-5.1 [facility] Protein [Mass/volume] in Serum or Plasma 6.5 g/dL 6.4-8.3 [facility] Sodium [Moles/volume] in Serum or Plasma 138 mmol/L 136-145 [facility] Aspartate aminotransferase [Enzymatic activity/volume] in Serum or Plasma 16 U/L <40 [facility] Urea nitrogen [Mass/volume] in Serum or Plasma 25 mg/dL 6-20 H [facility] Osmolality of Serum or Plasma by calculation 291 mosm/kg 275-300 [facility] Creatinine/Urea nitrogen [Mass Ratio] in Serum or Plasma 19 [facility] Bicarbonate [Moles/volume] in Serum 25 mmol/L 22-29 [facility] Alanine aminotransferase [Enzymatic activity/volume] in Seru m or Plasma 13 U/L <41 [facility] Anion gap 3 in Serum or Plasma 10 mmol/L 8-15 [facility] Glomerular filtration rate/1.73 sq M pre dicted among non-blacks [Volume Rate/Area] in Serum or Plasma by Creatinine-based formula (MDRD) 61 mL/min/1.73m2 >60 [facility] Glomerular filtration rate/1.73 sq M pre dicted among blacks [Volume Rate/Area] in Serum or Plasma by Creatinine-based formula (MDRD) 70 mL/min/1.73m2 >60 [facility] ID Date Data Source [id number] 11/23/2020 08:43:20 AM EDT [facility] Name Value Range Interpretation Code Description Data Irish rce(s) Supporting Document(s) Leukocytes [#/volume] in Blood by Automated count 5.7 10*3/uL 4-10 [facility] Erythrocytes [#/volume] in Blood by Automated count 2.88 10*6/uL 4.6- 6.1 L [facility] Hemoglobin [Mass/volume] in Blood 10.4 g/dL 13.5-18 L [facility] Hematocrit [Volume Fraction] of Blood by Automated count 30.2 % 4 1-53 L [facility] Erythrocyte mean corpuscular volume [Entitic volume] b y Automated count 104.6 fL 80-96 H [facility] Erythrocyte mean corpuscular hemoglobin [Entitic mass] by Automated count 36.1 pg 27-33 H [facility] Erythrocyte mean corpuscular hemoglobin concentration [Mass/volume] by Automated count 34.5 g/dL 32.0-36.0 [facility] E[facility]th[facility] distribution width [Ratio] by Automated count 19.7 % 11.5-14.5 H [facility] Platelets [#/volume] in Blood by Automated count 152 10*3/uL 150-400 [facility] Differential cell count method - Blood [facility] Neutrophils/100 leukocytes in Blood by Automated count 64 % [facility] Lymphocytes/100 leukocytes in Blood by Automated count 18 % [facility] Monocytes/100 leukocytes in Blood by Automated count 15 % [facility] Eosinophils/100 leukocytes in Blood by Automated count 2 % [facility] Basophils/100 leukocytes in Blood by Automated count 1 % [facility] Neutrophils [#/volume] in Blood by Automated count 3.63 10*3/uL 1.8-7 .0 [facility] Lymphocytes [#/volume] in Blood by Automated count 1.04 10*3/uL 1.2-4 .0 L [facility] Monocytes [#/volume] in Blood by Automated count 0.86 10*3/uL 0-0.8 H [facility] Eosinophils [#/volume] in Blood by Automated count 0.09 10*3/uL 0-0.5 [facility] Basophils [#/volume] in Blood by Automated count 0.04 10*3/uL 0-0.2 [facility] Nucleated erythrocytes/100 leukocytes [Ratio] in Blood by Automated count 0 /100{WBCs} 0-0 [facility] ID Date Data Source [id number] 11/23/2020 09:28:18 AM EDT [facility] Name Value Range Interpretation Code Description Data Irish rce(s) Supporting Document(s) Albumin [Mass/volume] in Serum or Plasma by Bromocresol green (BCG) dye binding method 3.7 g/dL 3.5-5.2 [facility] al Bilirubin.total [Mass/volume] in Serum or Plasma <1.2 [facility] Calcium [Mass/volume] in Serum or Plasma 8.5 mg/dL 8.6-10.0 L [facility] Chloride [Moles/volume] in Serum or Plasma 106 mmol/L 98-107 [facility] Creatinine [Mass/volume] in Serum or Plasma 1.21 mg/dL 0.70-1.20 H [facility] Glucose [Mass/volume] in Serum or Plasma 131 mg/dL 70-140 [facility] Alkaline phosphatase [Enzymatic activity/volume] in Serum or Plasma 108 U/L 40-129 [facility] Potassium [Moles/volume] in Serum or Plasma 4.0 mmol/L 3.4-5.1 [facility] Protein [Mass/volume] in Serum or Plasma 6.3 g/dL 6.4-8.3 L [facility] Sodium [Moles/volume] in Serum or Plasma 136 mmol/L 136-145 [facility] Aspartate aminotransferase [Enzymatic activity/volume] in Serum or Plasma 17 U/L <40 [facility] Urea nitrogen [Mass/volume] in Serum or Plasma 19 mg/dL 6-20 [facility] Osmolality of Serum or Plasma by calculation 286 mosm/kg 275-300 [facility] Creatinine/Urea nitrogen [Mass Ratio] in Serum or Plasma 15 [facility] Bicarbonate [Moles/volume] in Serum 23 mmol/L 22-29 [facility] Alanine aminotransferase [Enzymatic activity/volume] in Seru m or Plasma 25 U/L <41 [facility] Anion gap 3 in Serum or Plasma 8 mmol/L 8-15 [facility] Glomerular filtration rate/1.73 sq M pre dicted among non-blacks [Volume Rate/Area] in Serum or Plasma by Creatinine-based formula (MDRD) 67 mL/min/1.73m2 >60 [facility] Glomerular filtration rate/1.73 sq M pre dicted among blacks [Volume Rate/Area] in Serum or Plasma by Creatinine-based formula (MDRD) 77 mL/min/1.73m2 >60 [facility] ID Date Data Source [id number] 11/09/2020 08:37:[address] [facility] Hospital Name Value Range Interpretation Code Description Data Irish rce(s) Supporting Document(s) Leukocytes [#/volume] in Blood by Automated count 7.5 10*3/uL 4-10 [facility] Erythrocytes [#/volume] in Blood by Automated count 3.23 10*6/uL 4.6- 6.1 [facility] Hemoglobin [Mass/volume] in Blood 11.3 g/dL 13.5-18 L [facility] Hematocrit [Volume Fraction] of Blood by Automated count 33.5 % 4 1-53 [facility] Erythrocyte mean corpuscular volume [Entitic volume] b y Automated count 104.0 fL 80-96 H [facility] Erythrocyte mean corpuscular hemoglobin [Entitic mass] by Automated count 35.1 pg 27-33 H [facility] Erythrocyte mean corpuscular hemoglobin concentration [Mass/volume] by Automated count 33.8 g/dL 32.0-36.0 [facility] E[facility] distribution width [Ratio] by Automated count 20.9 % 11.5-14.5 H [facility] Platelets [#/volume] in Blood by Automated count 232 10*3/uL 150-400 [facility] Differential cell count method - Blood [facility] Neutrophils/100 leukocytes in Blood by Automated count 69 % [facility] Lymphocytes/100 leukocytes in Blood by Automated count 12 % [facility] Monocytes/100 leukocytes in Blood by Automated count 15 % [facility] Eosinophils/100 leukocytes in Blood by Automated count 3 % [facility] Basophils/100 leukocytes in Blood by Automated count 1 % [facility] Neutrophils [#/volume] in Blood by Automated count 5.21 10*3/uL 1.8-7 .0 [facility] Lymphocytes [#/volume] in Blood by Automated count 0.91 10*3/uL 1.2-4 .0 L [facility] Monocytes [#/volume] in Blood by Automated count 1.16 10*3/uL 0-0.8 H [facility] Eosinophils [#/volume] in Blood by Automated count 0.22 10*3/uL 0-0.5 [facility] Basophils [#/volume] in Blood by Automated count 0.04 10*3/uL 0-0.2 [facility] Nucleated erythrocytes/100 leukocytes [Ratio] in Blood by Automated count 0 /100{WBCs} 0-0 [facility] ID Date Data Source [id number] 11/09/2020 09:12:[address] [facility] Hospital Name Value Range Interpretation Code Description Data Irish rce(s) Supporting Document(s) Albumin [Mass/volume] in Serum or Plasma by Bromocresol green (BCG) dye binding method 3.7 g/dL 3.5-5.2 [facility] al Bilirubin.total [Mass/volume] in Serum or Plasma 0.2 mg/dL <1.2 [facility] Calcium [Mass/volume] in Serum or Plasma 8.7 mg/dL 8.6-10.0 [facility] Chloride [Moles/volume] in Serum or Plasma 104 mmol/L 98-107 [facility] Creatinine [Mass/volume] in Serum or Plasma 1.16 mg/dL 0.70-1.20 [facility] Glucose [Mass/volume] in Serum or Plasma 93 mg/dL 70-140 [facility] Alkaline phosphatase [Enzymatic activity/volume] in Serum or Plasma 120 U/L 40-129 [facility] Potassium [Moles/volume] in Serum or Plasma 4.0 mmol/L 3.4-5.1 [facility] Protein [Mass/volume] in Serum or Plasma 6.3 g/dL 6.4-8.3 L [facility] Sodium [Moles/volume] in Serum or Plasma 136 mmol/L 136-145 [facility] Aspartate aminotransferase [Enzymatic activity/volume] in Serum or Plasma 14 U/L <40 [facility] Urea nitrogen [Mass/volume] in Serum or Plasma 19 mg/dL 6-20 [facility] Osmolality of Serum or Plasma by calculation 285 mosm/kg 275-300 [facility] Creatinine/Urea nitrogen [Mass Ratio] in Serum or Plasma 16 [facility] Bicarbonate [Moles/volume] in Serum 22 mmol/L 22-29 [facility] Alanine aminotransferase [Enzymatic activity/volume] in Seru m or Plasma 13 U/L <41 [facility] Anion gap 3 in Serum or Plasma 10 mmol/L 8-15 [facility] Glomerular filtration rate/1.73 sq M pre dicted among non-blacks [Volume Rate/Area] in Serum or Plasma by Creatinine-based formula (MDRD) 70 mL/min/1.73m2 >60 [facility] Glomerular filtration rate/1.73 sq M pre dicted among blacks [Volume Rate/Area] in Serum or Plasma by Creatinine-based formula (MDRD) 81 mL/min/1.73m2 >60 [facility] ID Date Data Source [id number] 10/26/2020 03:37:16 PM EDT [facility] Name Value Range Interpretation Code Description Data Irish rce(s) Supporting Document(s) Progress Note [facility] [id number] lbm [file] [id number]== ID Date Data Source [id number] 10/26/2020 03:37:11 PM EDT [facility] Name Value Range Interpretation Code Description Data Irish rce(s) Supporting Document(s) Progress Note [facility] [id number] lbm [file] ID Date Data Source [id number] 10/26/2020 08:44:00 AM EDT [facility] Name Value Range Interpretation Code Description Data Irish rce(s) Supporting Document(s) Leukocytes [#/volume] in Blood by Automated count 7.8 10*3/uL 4-10 [facility] Erythrocytes [#/volume] in Blood by Automated count 3.75 10*6/uL 4.6- 6.1 L [facility] Hemoglobin [Mass/volume] in Blood 12.4 g/dL 13.5-18 L [facility] Hematocrit [Volume Fraction] of Blood by Automated count 38.0 % 4 1-53 L [facility] Erythrocyte mean corpuscular volume [Entitic volume] b y Automated count 101.4 fL 80-96 H [facility] Erythrocyte mean corpuscular hemoglobin [Entitic mass] by Automated count 33.0 pg 27-33 [facility] Erythrocyte mean corpuscular hemoglobin concentration [Mass/volume] by [facility] 32.6 g/[facility] width [Ratio] by Automated count 21.2 % 11.5-14.5 H [facility] Platelets [#/volume] in Blood by Automated count 219 10*3/uL 150-400 [facility] Differential cell count method - Blood [facility] Neutrophils/100 leukocytes in Blood by Automated count 66 % [facility] Lymphocytes/100 leukocytes in Blood by Automated count 13 % [facility] Monocytes/100 leukocytes in Blood by Automated count 13 % [facility] Eosinophils/100 leukocytes in Blood by Automated count 7 % [facility] Basophils/100 leukocytes in Blood by Automated count 1 % [facility] Neutrophils [#/volume] in Blood by Automated count 5.23 10*3/uL 1.8-7 .0 [facility] Lymphocytes [#/volume] in Blood by Automated count 1.00 10*3/uL 1.2-4 .0 L [facility] Monocytes [#/volume] in Blood by Automated count 1.01 10*3/uL 0-0.8 H [facility] Eosinophils [#/volume] in Blood by Automated count 0.53 10*3/uL 0-0.5 H [facility] Basophils [#/volume] in Blood by Automated count 0.07 10*3/uL 0-0.2 [facility] Nucleated erythrocytes/100 leukocytes [Ratio] in Blood by Automated count 0 /100{WBCs} 0-0 [facility] ID Date Data Source [id number] 10/26/2020 09:09:[address] [facility] Hospital Name Value Range Interpretation Code Description Data Irish rce(s) Supporting Document(s) Albumin [Mass/volume] in Serum or Plasma by Bromocresol green (BCG) dye binding method 3.6 g/[facility].5[facility] Bil[facility].total [Mass/volume] in Serum or Plasma 0.2 mg/dL <1.2 [facility] Calcium [Mass/volume] in Serum or Plasma 8.6 mg/dL 8.6-10.0 [facility] Chloride [Moles/volume] in Serum or Plasma 103 mmol/L 98-107 [facility] Creatinine [Mass/volume] in Serum or Plasma 1.29 mg/dL 0.70-1.20 [facility] Glucose [Mass/volume] in Serum or Plasma 100 mg/dL 70-140 [facility] Alkaline phosphatase [Enzymatic activity/volume] in Serum or Plasma 119 U/L 40-129 [facility] Potassium [Moles/volume] in Serum or Plasma 3.9 mmol/L 3.4-5.1 [facility] Protein [Mass/volume] in Serum or Plasma 6.2 g/dL 6.4-8.3 L [facility] Sodium [Moles/volume] in Serum or Plasma 134 mmol/L 136-145 [facility] Aspartate aminotransferase [Enzymatic activity/volume] in Serum or Plasma 15 U/L <40 [facility] Urea nitrogen [Mass/volume] in Serum or Plasma 26 mg/dL 6-20 [facility] Osmolality of Serum or Plasma by calculation 284 mosm/kg 275-300 [facility] Creatinine/Urea nitrogen [Mass Ratio] in Serum or Plasma 20 [facility] Bicarbonate [Moles/volume] in Serum 21 mmol/L 22-29 L [facility] Alanine aminotransferase [Enzymatic activity/volume] in Seru m or Plasma 12 U/L <41 [facility] Anion gap 3 in Serum or Plasma 10 mmol/L 8-15 [facility] Glomerular filtration rate/1.73 sq M pre dicted among non-blacks [Volume Rate/Area] in Serum or Plasma by Creatinine-based formula (MDRD) 62 mL/min/1.73m2 >60 [facility] Glomerular filtration rate/1.73 sq M pre dicted among blacks [Volume Rate/Area] in Serum or Plasma by Creatinine-based formula (MDRD) 72 mL/min/1.73m2 >60 [facility] ID Date Data Source [id number] 09/25/2020 05:33:[address] [facility] Hospital Name Value Range Interpretation Code Description Data Irish rce(s) Supporting Document(s) Progress Note [facility] TLZYRs9xIyMDNtYn62/UTRgiGYVqq4YaIKjeWAs4BTbkRZMtL7YyUOC0gK4bYFB6EIuZEiTwGcIbNSS3 lbm [file] Ci5QEfZ4WKC6lNAsFy8HYOqwQvNUQfRsOQ3UELl= ID Date Data Source [id number] 09/25/2020 05:33:20 PM EDT [facility] Name Value Range Interpretation Code Description Data Irish rce(s) Supporting Document(s) Progress Note [facility] RCBRGa8fDaEKUiOc07/MJFyaIWIbl3JeVUomWPp5CRbkNADzQ6EgNFW5iM9oTDP9EXhXFbMpJaHiIWI1 lbm [file] StuvWgNmQA8LIk8ABvT6NTJ1dFNyXc3ZWkKrGSEAIyCjYH2YFYt= ID Date Data Source [id number] 09/22/2020 12:28:33 PM EDT [facility] Name Value Range Interpretation Code Description Data Irish rce(s) Supporting Document(s) Progress Note [facility] VDNKPs4gZaOIGcDm00/BKVydBXAdm9QaRXakBYh2XMbmVYCoN2DzZKH5sE5qWPS5TMySZeCeWuTcTLKd lbm [file] AgICAgICAgICAgICAgICAgICAgICAgICAgICAgICAg ICAgICAgICAgICAgICAgICAgICAgICAgICAgICAgICAgICAgICAgICAgICAgICAgDQogICAgICAgICAg ICAgICAgICAgICAgICAgICAgICAgICAgICAgICAgICAgICAgICAgICAgICAgICAgICAgICAgICAgICAg ICAgICAgICAgICAgICAgICAgICAgICAgICAgICAgDQ ogICAgICAgICAgICAgICAgICAgICAgICAgICAgICAgICAgICAgICAgICAgICAgICAgICAgICAgICAgIC AgICAgICAgICAgICAgICAgICAgICAgICAgICAgICAgICAgICAgICAgDQogICAgICAgICAgICAgICAgIC AgICAgICAgICAgICAgICAgICAgICAgICAgICAgICAg ICAgICAgICAgICAgICAgICAgICAgICAgICAgICAgICAgICAgICAgICAgICAgICAgICAgDQogICAgICAg ICAgICAgICAgICAgICAgICAgICAgICAgICAgICAgICAgICAgICAgICAgICAgICAgICAgICAgICAgICAg ICAgICAgICAgICAgICAgICAgICAgICAgICAgICAgIC AgDQogICAgICAgICAgICAgICAgICAgICAgICAgICAgICAgICAgICAgICAgICAgICAgICAgICAgICAgIC AgICAgICAgICAgICAgICAgICAgICAgICAgICAgICAgICAgICAgICAgICAgDQogICAgICAgICAgICAgIC AgICAgICAgICAgICAgICAgICAgICAgICAgICAgICAg ICAgICAgICAgICAgICAgICAgICAgICAgICAgICAgICAgICAgICAgICAgICAgICAgICAgICAgDQogICAg ICAgICAgICAgICAgICAgICAgICAgICAgICAgICAgICAgICAgICAgICAgICAgICAgICAgICAgICAgICAg ICAgICAgICAgICAgICAgICAgICAgICAgICAgICAgIC AgICAgDQogICAgICAgICAgICAgICAgICAgICAgICAgICAgICAgICAgICAgICAgICAgICAgICAgICAgIC AgICAgICAgICAgICAgICAgICAgICAgICAgICAgICAgICAgICAgICAgICAgICAgDQogICAgICAgICAgIC AgICAgICAgICAgICAgICAgICAgICAgICAgICAgICAg ICAgICAgICAgICAgICAgICAgICAgICAgICAgICAgICAgICAgICAgICAgICAgICAgICAgICAgICAgDQo8 G5xhCXVkRUGrLF5gACj5Iu9+MMpCNkHgMLK0plMxyN3HVD4vd8VbGEvlILHxf3HjYXh8KK1KIFQzMPnv QO5PZIdoel1XPOGrHPNzaWNBv2unRpGwZMF8NIKvKr wtVC6DPZQqJ7ecqjSuJUYxBRHDLGtlZTXFOVtmTJCJEAVvUFKnQuStAyLrYETtRNVhEERTHUE0RHOnIl EoSWwpOS5Ff7QxxXU3WXl+Ps7WKP4cn3TpCApgXPBxTZ0een5IEHlOVfPdI3WhddU6BMT9IVZxYo0ZAY CsRDXoiCCmGOXjRVCWTnZdH9CmdY88DWUOXb3+DQpl gzGkZowOLvS6SGOoj6CuGGo5FX2WVDJmLNd3dVSlMSSeN2Yze7WnRf12DMFyPpecZSi2f6JjWB6uL2Zl C0rpeEhgEVNkCQLtCO9oNW9xBHIvSIK8AbRsFFTFEE7TLUGoWYEpoBDrUVPhVOLHTB6LLCwwKBU1ZUYf sqHweEHuWBcvUN8JTJQrkfIoOiNkVWGCROz+Pg0KZW 8wo3PxPJleVzBgEJ9dgy8VNKoOXcUyA8T2dJViX6V7IWoiGz2UEAQyRRFmGrNdLUSYRHmrDO0YYZ4qcx W9MT4KuPGxNUHwYEBibYBwBQm6W27mePWtUChpGU8TSDA+Zeferino+Pr6DDBBuRDGgUODhTiSmSHVCPkOzV3 MmK7HHj2AfK5OyPR15yRnnzpKrSQogTD5GUA0rLGMx GOGEJV7SuXHppP2ngoWkDUUbSVZZRyExW21siYReDQUmYNJeIOByNm8SLIPmR8DphgPitHncaxIeWPLa NSHAST9GLJhhujSjuPEktSsxEQ78dAycFJ4ERr4VXhHgHA7gaa7CwUQbYx5LBNWtWg9VJCTnJSNoRKEy AXS9XPNaMpXmLEnhCASjCUXrXST1ABAsVJBqAW2EEk XgYDRgBzexHfBnOQFfGVCyhh9PTMYkNPL3BRXlWhOeUZYiJXWeAMrbKHZuSKWyGOE4FNLeBVNeAF0ZBp VpEIBlSYWgTLujVCAfKRHcji4UVQMcAKKlVNJmCjXgZVTnAVWaBIigWPGtAEC5ZcJ6OCXaDXWbTW3XQf KpUTAkUHm5AxMqWFEgAFLaey6ILMGpPLVwIDd1AKPr PUGbNHMjXDomLLVfZUSdSUA1IAWeHJGwYF9GEvAkXJEuBYO3MEOhINWzGXHosv8XYKJyOTXnGKOcJrEj FEMmYQMjSOtkGSWgSUP1Ngw7GCAuQTGiBO6YDtVhGSGlRQz0XRKvVHVaQHPsif6JXWYaYBRhZJu1BlOx NCJmZFFvJYjrDHPcTZPxBXT5OMBuYLClQR4YDfRaKB PdNaY2MJXbJBWcPUQlon5CTDYiVHJzFgr5XSHuYQShRFMnKLlaWWFhZVBzKPVcOLMyHDIqCU4JHpNuEQ UvQoZhNPdrCEZaPUTlrb3QHTFpTTKzLROnQWEtTUKdEWQmSChkZNJnYOW5EDb8MTAeKEQiFN7EBmWaRW SlHsMeRKEpLXJgODOdjc6KVFGaNNUwDIE0YCZaQJGd EOSeZOcoTZTuVLR4OEA3RXIiIMApZZ6GPmBaRWJmUlkcOpOqPADjJHMdrn2DDWVkZPOyPqY5KhGrYENg ZQWuPObiZSLgOXT0ZqytTNDnQXMmOZ6SXaTeHLFqEkc7AlzeLQOaPIAwpy3UOYDnKMTfIGy9MmBuNXKd MZJdBBwlEGUrRME3CClsVCWvYFVeUH1NZjUqXKXnCa rhLZerQPFtBFXmqc0MCSBbDALzYXJ5QzVzGXIlPIAxAXwuOIVcVHEbRJC7UKKuLVIyYP1CYvPjMQNdSU AqFBTkMQBmYHGxwx7KZPQpPUD5JZY0KqMqCPFtUOSoQTj2nyXmhZWoNZz9RS4WI9CcrgDqUasSWw8Ps7 17NUZ8LRWsMb0LU2ucMq7sENFoXKASSz1CAXz9SABf WJQ4YJftGDV8AiF1UCS5BIgeHWipDNM6PJYrBCO+VHk7JnJmMNP4STLvLAIbNGT3UNx1BXEoK9C6Jfnu VpG7HW5qGDASIx7+LNfjjATyePdgUIMUKuZuLpJtBMmqIERQTo5S ID Date Data Source [id number] 09/22/2020 12:28:28 PM EDT [facility] Name Value Range Interpretation Code Description Data Irish rce(s) Supporting Document(s) Progress Note [facility] VTVHNk0eIaAAHlWd40/CRBwfDCWam1TuOJmlACo6HChyIMIzH2TfGNN3tU6uEIN5WLbWKxVvRtRxZUWi lbm [file] x9NdQa4G31J0aU5G37Gd9FnBDS5kCeNyo4B5XKZH8OfuFqdMh2QzSqsTmsm8r/zvDFJL15YoP4L7Q+ACUÑA [file] AgICAgICAgICAgICAgICAgICAgICAgICAgICAgICAgICAgICAgICAgICAgICAgICAgICAgICAgICAgIC AgICAgICAgICAgICAgICAgICAgICAgICAgICAgICAg ICAgICAgICANCiAgICAgICAgICAgICAgICAgICAgICAgICAgICAgICAgICAgICAgICAgICAgICAgICAg ICAgICAgICAgICAgICAgICAgICAgICAgICAgICAgICAgICAgICAgICAgICAgICAgICANCiAgICAgICAg ICAgICAgICAgICAgICAgICAgICAgICAgICAgICAgIC AgICAgICAgICAgICAgICAgICAgICAgICAgICAgICAgICAgICAgICAgICAgICAgICAgICAgICAgICAgIC ANCiAgICAgICAgICAgICAgICAgICAgICAgICAgICAgICAgICAgICAgICAgICAgICAgICAgICAgICAgIC AgICAgICAgICAgICAgICAgICAgICAgICAgICAgICAg ICAgICAgICAgICANCiAgICAgICAgICAgICAgICAgICAgICAgICAgICAgICAgICAgICAgICAgICAgICAg ICAgICAgICAgICAgICAgICAgICAgICAgICAgICAgICAgICAgICAgICAgICAgICAgICAgICANCiAgICAg ICAgICAgICAgICAgICAgICAgICAgICAgICAgICAgIC AgICAgICAgICAgICAgICAgICAgICAgICAgICAgICAgICAgICAgICAgICAgICAgICAgICAgICAgICAgIC AgICANCiAgICAgICAgICAgICAgICAgICAgICAgICAgICAgICAgICAgICAgICAgICAgICAgICAgICAgIC AgICAgICAgICAgICAgICAgICAgICAgICAgICAgICAg ICAgICAgICAgICAgICANCiAgICAgICAgICAgICAgICAgICAgICAgICAgICAgICAgICAgICAgICAgICAg ICAgICAgICAgICAgICAgICAgICAgICAgICAgICAgICAgICAgICAgICAgICAgICAgICAgICAgICANCiAg ICAgICAgICAgICAgICAgICAgICAgICAgICAgICAgIC AgICAgICAgICAgICAgICAgICAgICAgICAgICAgICAgICAgICAgICAgICAgICAgICAgICAgICAgICAgIC AgICAgICANCiAgICAgICAgICAgICAgICAgICAgICAgICAgICAgICAgICAgICAgICAgICAgICAgICAgIC AgICAgICAgICAgICAgICAgICAgICAgICAgICAgICAg ICAgICAgICAgICAgICAgICANCjw/yZAiO5ubnYKargR8F1ptMv5UVn0YMH2ho6LjUDEiDRuaqpGqJeiQ HoAtXOIfCsmFWwg4RIhkYD2UfTUdT9OdM7GzGXxnNH2NWMNsPEHgaTUdNIVqIFBvIrN6OLHeCLroHT4T vDXhZQvqTMTrQSYuGnWmNEZtVN4WUHJfX564qgNpWn 9YYw7TAsGdQN2qyy9HQnSzTCHbLrnJQrt1FPcaGP4NbTDsxPIjMjPhSAMWEnXlG4vet2SiKuWaDDITXJ lpJX4Iz4BntNApFUu+Zf2JFZ4rb2QmKVmpRcBmQT6wti1HDEvVTmCcW7HsrBaiHUGkk8rkTQVdYI4okN DnWHV5AFVqeY2fANXze62mcHbcCXDrCFAeXB2sNO1y UOZtVYB0FrWcJBFJLL2REOPlTDKluNNaRTKcOUKLVC4KWDohFAP6EZFmqyJojIIrVOsjJG2SBJOzqlSt MjEgMCBSDQo+Zr7CYC1ai7GtQYljNmIiZX7mvc8DCFmNCsArH3P5wKPaX2O0SZebKp7OTWRvMVMcXJgd DZZVLZivRO5RXA9awtP4CD0HaCDaIOIiHDMvxQHhDG s7X25rvGPpAJniYW1CNKK+Zeferino+Rd4ZEAViRUNoNBRyZiGzBLDBQeKxH1BuY5HWc3MvD9FqEM79lQydxr RuXLgsHS3DPD5vTNQcEEIQXR8NzFIouS9ikjYlLYXhMQHLFwYeM88agEZvRIErPESdAZZmLn3KZEGbD6 EvxiYtdMqpnfYaLIQiUMSINS2EUTovsaYbcBZuvJqc MR87gSskSX2MFc8ZLgJoIW2ume3WqQKdLy0PUJOwME8TSIHuBEYqSFLkFSO6BBIuUpMqJZggCFEuQNFr OTA8CDZmEYNzHF8NWbApDJHeRgL4VGWeNDKqPJJevw8WLPTyLMQfOWXmMXJiIUHcXQQaPZguOHWqUFRe CFW4AQGvBEYxHA3ECuYuOLDaJFB4BtavQEAnOMFmkx 5ZJNDiHPHfPRv2NYOeUUQfSZVzJTxkMJWeMGS2LZH8OPJhCQMdVE8SSeKuZPIhLBm4IEwpDFMzBPGkcj 2ZHAElLPTwHSX5NMXsYCCbOGIgDUijHUDkRTA7IuJ2NFHgPRUjZR3AKrWlJYQsOWk7LWBuIQHxRQJips 4WZZCpKUIuSFdiOTTtRMRxYUXrZAfnHJLhMBAhILH0 FKGoKEQkYN4NSqGnIAGvDYEgVCAnKMLhAUDmnj1AKOAeTSHeWFC5VOXsPSAjLCXgLFhnOLRxRXYuJKK4 WSKaFGTvMI4ICqTxGORdQqTfYhFxRSXoXAHpus0CCOCjQHDpXtWuIRDhMQGtCPUnUAvjRVCoKCJjKJBt DPGkZLZpAR9LUjFgXWGyTjZ5OlUeUQVkOODsvy1BTB FsCYOwARLiONRjUFHvFVXlSPpfSLIbKPH8DIr5QEWmXDScTU5ADdWhAZNbUmT6KgPaKDGeSHZsvm2HoS QdvJbgbf7AEJuPAg4EgOtqUAV7EQpxIb2osBBlXkErQVGSUa7KzaJpVYCePGXNEQzwAPEfZYgfP8HeFB t4PHOoZwd9NXM1PXGmKXLaYAIwCKKxMvVmVdB1FNR0 BpP3DAO0EdX7ACO1FNZ0CgJ8QYAhUSZfMKOhBFD+TJ5iRKu+Pv1Rx7JrejA5qqPxAKbhVSy5Uw0SXUQE T0YNCg== ID Date Data Source [id number] 09/21/2020 12:21:[address] [facility] Hospital Name Value Range Interpretation Code Description Data Irish rce(s) Supporting Document(s) Progress Note [facility] DTOQBb2jTdOLZkHi00/QSUcgEWUyh1VuGSkzUKd3RJeeMWSzR4XdDNP7fK8xWHF5ONdSCeEbMtFwCWSe lbm [file] dGE+DQogICAgICAgICAgICAgICAgICAgICAgICAgICAgICAgICAgICAgICAgICAgICAgICAgICAgICAg ICAgICAgICAgICAgICAgICAgICAgICAgICAgICAgICAgICAgICAgICAgICAgDQogICAgICAgICAgICAg ICAgICAgICAgICAgICAgICAgICAgICAgICAgICAgIC AgICAgICAgICAgICAgICAgICAgICAgICAgICAgICAgICAgICAgICAgICAgICAgICAgICAgICAgDQogIC AgICAgICAgICAgICAgICAgICAgICAgICAgICAgICAgICAgICAgICAgICAgICAgICAgICAgICAgICAgIC AgICAgICAgICAgICAgICAgICAgICAgICAgICAgICAg ICAgICAgDQogICAgICAgICAgICAgICAgICAgICAgICAgICAgICAgICAgICAgICAgICAgICAgICAgICAg ICAgICAgICAgICAgICAgICAgICAgICAgICAgICAgICAgICAgICAgICAgICAgICAgDQogICAgICAgICAg ICAgICAgICAgICAgICAgICAgICAgICAgICAgICAgIC AgICAgICAgICAgICAgICAgICAgICAgICAgICAgICAgICAgICAgICAgICAgICAgICAgICAgICAgICAgDQ ogICAgICAgICAgICAgICAgICAgICAgICAgICAgICAgICAgICAgICAgICAgICAgICAgICAgICAgICAgIC AgICAgICAgICAgICAgICAgICAgICAgICAgICAgICAg ICAgICAgICAgDQogICAgICAgICAgICAgICAgICAgICAgICAgICAgICAgICAgICAgICAgICAgICAgICAg ICAgICAgICAgICAgICAgICAgICAgICAgICAgICAgICAgICAgICAgICAgICAgICAgICAgDQogICAgICAg ICAgICAgICAgICAgICAgICAgICAgICAgICAgICAgIC AgICAgICAgICAgICAgICAgICAgICAgICAgICAgICAgICAgICAgICAgICAgICAgICAgICAgICAgICAgIC AgDQogICAgICAgICAgICAgICAgICAgICAgICAgICAgICAgICAgICAgICAgICAgICAgICAgICAgICAgIC AgICAgICAgICAgICAgICAgICAgICAgICAgICAgICAg ICAgICAgICAgICAgDQogICAgICAgICAgICAgICAgICAgICAgICAgICAgICAgICAgICAgICAgICAgICAg FXFxVLHtLRSnZRThOUIdXWMyZNWiBIOfZIWxLMIaIPBoPEQvDLTkGQNsLMXrQYDxQCKcSIXtMZi9A0rs VJJrNGBoCS7oFEa9Dd5+UKkHVfIwVVH3xsHxkW9SRK 8hx3UmFPncSVHbu4TsBXr3TE2HINBrIWpfKI2UCCjjdh5EQIZqRXCpoLKCv5fbVfXxQKQ3DFNnScfdLW 9NSSTcD9rordAdMFUaLAWWEUjbSDAVOZcbQZMDSBLwQJOoEoTuRcXnXJAvNB0YLOQbY387erOhBN8WZw 2QJxBcQY6tgf5GPjYoTRHkXbhMYqp9CSqfVU4AqTKs bLQjLJHgKYPIBsMoF2tpm7MiCfQwDUQQCYvxHC9Qx4DgnFUoCQt+Ot1RKI0qw6KzMReqYZCtRH2jlk6E NAcICuClP2AqxCkqAXVlu4mmZDJgPU4ouTCmCSO9MHSozVDaiUCXDBAoaHLyqJTxKublFLMkUEBwYE1u ZZ6dHVNkLFWrOxQ2AFKQTU8RXRDpOEPnaPCaMKPcWQ EEQG4HEAmbUNY8NTAihbXfkHHkBWbkLV6RJIZbghEmVrTtIEBQHGc+Ti9GXX4by0YbFOvtXPGzDS3sdv 1ORYgZKdCmH0D6uVRdE8T4PXzyHz2NJCOiLRKkXsXeSXKKCItcAV8WFX9xieG2ED9PkQVlYPVmBOFnoJ HtMHq4T05pzRCuZCuaNH9SZFL+Zeferino+Qb8SOUXlYUHm GIBrMzRqAXEBIcYvE9IhA3XTu1KoS1QcGK24jBovebJhKYtmVI1KEN9yUKTjGCAGDE3YfXYdzS3knyXk OsKtODFQWpBdU53phTSbYOWxBSVpXKEvOr2VTCPmY1QuzhBtxRilnjUeFEBfZJCSMR2KFUesyiKaoEUq lIcmVH37qKaxVB7VDf9VHvOvIF5qsi3BoSMcQy6IQR ElWi3LTOIjMZYzDLVnYDZ9PHPeFjEiUZugFRFpYNYrAII3RHWbULOdJC3ATvBcLYNsWwN6KsPqROBqKQ Rorp6DEWWvZYXnYbHhSACgYDGpSEOcSXdbKMZhYBEoGGD5XDZlOMLqLY4XFzFlFJGtTPR5NcDlFGJoEQ Zkkr7NFMAaCZRiSwo1SXJmIBHsCFNkWWtsZCOnXHL1 ZyU7WKHaWMNvDP1OZuKvYDNgOGv8DjRgQSVmMWGcmr0NBLDvGGZdCZSpQLMdXGNjMBJuMZrpFQUnAMQp ChC8FFGkUBOtHR6WWsUuUXIaIZQzLDWkRAOsNLOqdl0TYEAcSGZlWND5XaDyKXBaVZUiOYmtPSCwPUU3 IDuvUZWtRIPsDQ8WOuZsQXRlAQH5DSlgTSRuESSmoe 1DVJEoIIByUtj1YrQhDRMqVLCtQUnuYKHwCBL4TNM6DDCmQJZjIB1CVuKdZNPbJOjjOkofJRFaUXQqia 3PUNQlCJTgGHO1AzWjUTJgNXXkPMidKOApAKC2Ugc7INGaBILvXM8YAuXkYLLuSAq8YkWbSJWdCSGlsy 0KMDAwMDAzMDkwNiAwMDAwMCBuDQowMDAwMDMxMjMx FRWtRINuPF3AGjSrHRXeFjS3UCLfWRZzFQHkpj0AQCVwLMIeMZN4POSuXHXzNSMnUOsyCAWbJTTvMGI6 OWLmKYEkWU5JSuNlZEAzRyS7QPRrMKDgHVWgbe4JSDHuWZVvKmo1URDgITAgJHVmARjlNXSuNDDgCCV4 CCEgLTSmRX8IOvBoIDPoViPeGPBtGWCqVXRzsf3QMP GqQRTkLET4QBPhKHSwVNGxGQnqWGIfZTD5VQGjVWFyIKLtAU7FCgZsYLHpTtP6FzMsCWNkXLHnis1RUU TnLOPlUiBhKDGaJPQjTKIpXFmzSCZfSWE0QZTfUSOoEEVmIW0NClRfVTObOcT0OjLsNTCnEJRkon4DqS HoaJqdwi0XSJgKXm9BlGlyPDI2BDqfZc9crMIkPVGw AMEDDi3JwcMgHEZnVPNRUItoVPShQYDsIEhcXxEeMjPdMKHzLCWxVELmOZJtAVG7SxYzFnRrTjM0C0C2 G6GpRiObMMKqGfI4LARzT5Z4DBFpOvg6PXJiCrA+AF1lDLp+Ik5Kq1PupqX4oiWkAVpsPfcxNu7OMYHF T0YNCg== ID Date Data Source [id number] 09/21/2020 08:42:17 AM EDT [facility] Name Value Range Interpretation Code Description Data Irish e(s) Supporting Document(s) Leukocytes [#/volume] in Blood by Automated count 9.7 10*3/uL 4-10 [facility] Erythrocytes [#/volume] in Blood by Automated count 3.60 10*6/uL 4.6- 6.1 L [facility] Hemoglobin [Mass/volume] in Blood 11.7 g/dL 13.5-18 L [facility] Hematocrit [Volume Fraction] of Blood by Automated count 35.2 % 4 1-53 L [facility] Erythrocyte mean corpuscular volume [Entitic volume] by Auto mated count 97.7 fL 80-96 H [facility] Erythrocyte mean corpuscular hemoglobin [Entitic mass] by Automated count 32.5 pg 27-33 [facility] Erythrocyte mean corpuscular hemoglobin concentration [Mass/volume] by Autom[facility] 33.3 g/dL [facility].0-[facility] width [Ratio] by Automated count 14.5 % 11.5-14.5 [facility] Platelets [#/volume] in Blood by Automated count 445 10*3/uL 150-400 H [facility] Differential cell count method - Blood [facility] Neutrophils/100 leukocytes in Blood by Automated count 72 % [facility] Lymphocytes/100 leukocytes in Blood by Automated count 12 % [facility] Monocytes/100 leukocytes in Blood by Automated count 13 % [facility] Eosinophils/100 leukocytes in Blood by Automated count 2 % [facility] Basophils/100 leukocytes in Blood by Automated count 1 % [facility] Neutrophils [#/volume] in Blood by Automated count 7.00 10*3/uL 1.8-7 .0 [facility] Lymphocytes [#/volume] in Blood by Automated count 1.19 10*3/uL 1.2-4 .0 L [facility] Monocytes [#/volume] in Blood by Automated count 1.25 10*3/uL 0-0.8 [facility] Eosinophils [#/volume] in Blood by Automated count 0.18 10*3/uL 0-0.5 [facility] Basophils [#/volume] in Blood by Automated count 0.07 10*3/uL 0-0.2 [facility] Nucleated erythrocytes/100 leukocytes [Ratio] in Blood by Automated count 0 /100{WBCs} 0-0 [facility] ID Date Data Source [id number] 09/21/2020 09:17:07 AM EDT [facility] Name Value Range Interpretation Code Description Data Irish rce(s) Supporting Document(s) Albumin [Mass/volume] in Serum or Plasma by Bromocresol green (BCG) dye binding method 3.6 g/dL 3.5-5.[facility] Bil[facility].total [Mass/volume] in Serum or Plasma 0.2 mg/dL <1.2 [facility] Calcium [Mass/volume] in Serum or Plasma 8.8 mg/dL 8.6-10.0 [facility] Chloride [Moles/volume] in Serum or Plasma 105 mmol/L 98-107 [facility] Creatinine [Mass/volume] in Serum or Plasma 1.52 mg/dL 0.70-1.20 H [facility] Glucose [Mass/volume] in Serum or Plasma 101 mg/dL 70-140 [facility] Alkaline phosphatase [Enzymatic activity/volume] in Serum or Plasma 128 U/L 40-129 [facility] Potassium [Moles/volume] in Serum or Plasma 4.3 mmol/L 3.4-5.1 [facility] Protein [Mass/volume] in Serum or Plasma 6.8 g/dL 6.4-8.3 [facility] Sodium [Moles/volume] in Serum or Plasma 133 mmol/L 136-145 L [facility] Aspartate aminotransferase [Enzymatic activity/volume] in Serum or Plasma 12 U/L <40 [facility] Urea nitrogen [Mass/volume] in Serum or Plasma 28 mg/dL 6-20 H [facility] Osmolality of Serum or Plasma by calculation 282 mosm/kg 275-300 [facility] Creatinine/Urea nitrogen [Mass Ratio] in Serum or Plasma 18 [facility] Bicarbonate [Moles/volume] in Serum 19 mmol/L 22-29 L [facility] Alanine aminotransferase [Enzymatic activity/volume] in Seru m or Plasma 24 U/L <41 [facility] Anion gap 3 in Serum or Plasma 10 mmol/L 8-15 [facility] Glomerular filtration rate/1.73 sq M pre dicted among non-blacks [Volume Rate/Area] in Serum or Plasma by Creatinine-based formula (MDRD) 51 mL/min/1.73m2 >60 L [facility] Glomerular filtration rate/1.73 sq M pre dicted among blacks [Volume Rate/Area] in Serum or Plasma by Creatinine-based formula (MDRD) 59 mL/min/1.73m2 >60 L [facility] ID Date Data Source [id number] 09/08/2020 08:05:54 PM EDT [facility] Name Value Range Interpretation Code Description Data Irish rce(s) Supporting Document(s) Progress Note [facility] INEKIs1bGkWOMwLh12/YWKpsQZQdn0KmGVyrPSo5GGviTVTsI9ThQWQ5oP1wTOT0VPjVLgHgKsNxGLZ4 lbm [file] DQogICAgICAgICAgICAgICAgICAgICAgICAgICAgIC AgICAgICAgICAgICAgICAgICAgICAgICAgICAgICAgICAgICAgICAgICAgICAgICAgICAgICAgICAgIC AgICAgICAgICAgDQogICAgICAgICAgICAgICAgICAgICAgICAgICAgICAgICAgICAgICAgICAgICAgIC AgICAgICAgICAgICAgICAgICAgICAgICAgICAgICAg ICAgICAgICAgICAgICAgICAgICAgDQogICAgICAgICAgICAgICAgICAgICAgICAgICAgICAgICAgICAg ICAgICAgICAgICAgICAgICAgICAgICAgICAgICAgICAgICAgICAgICAgICAgICAgICAgICAgICAgICAg ICAgDQogICAgICAgICAgICAgICAgICAgICAgICAgIC AgICAgICAgICAgICAgICAgICAgICAgICAgICAgICAgICAgICAgICAgICAgICAgICAgICAgICAgICAgIC AgICAgICAgICAgICAgDQogICAgICAgICAgICAgICAgICAgICAgICAgICAgICAgICAgICAgICAgICAgIC AgICAgICAgICAgICAgICAgICAgICAgICAgICAgICAg ICAgICAgICAgICAgICAgICAgICAgICAgDQogICAgICAgICAgICAgICAgICAgICAgICAgICAgICAgICAg ICAgICAgICAgICAgICAgICAgICAgICAgICAgICAgICAgICAgICAgICAgICAgICAgICAgICAgICAgICAg ICAgICAgDQogICAgICAgICAgICAgICAgICAgICAgIC AgICAgICAgICAgICAgICAgICAgICAgICAgICAgICAgICAgICAgICAgICAgICAgICAgICAgICAgICAgIC AgICAgICAgICAgICAgICAgDQogICAgICAgICAgICAgICAgICAgICAgICAgICAgICAgICAgICAgICAgIC AgICAgICAgICAgICAgICAgICAgICAgICAgICAgICAg ICAgICAgICAgICAgICAgICAgICAgICAgICAgDQogICAgICAgICAgICAgICAgICAgICAgICAgICAgICAg ICAgICAgICAgICAgICAgICAgICAgICAgICAgICAgICAgICAgICAgICAgICAgICAgICAgICAgICAgICAg ICAgICAgICAgDQogICAgICAgICAgICAgICAgICAgIC AgICAgICAgICAgICAgICAgICAgICAgICAgICAgICAgICAgICAgICAgICAgICAgICAgICAgICAgICAgIC EsCAEqSLZqIXPjBTWlMMDgMVDwSYh1G1pvLJHcAEFtRK9aFYy4Kn2+BFmGIoTuIMR6hyDdtI6GWL3zx6 GmHIkuGKLhf1BzMZc5GT2CCJInHRfxZS5OWCihto7V WDRrOGTawEJYy6ykAeOjGZF8RVAwOjnnDO3GZAOnP2dckyLkUZZqOIONVRryINYVFG8LTxNaF9UuiQ50 IDINCj4+PBmhwcQsAglWWuBaSTHug7FmTJd3KR3SSHPzXdcbd4EcXvJxYUEBZXxdFT9DYMD9ZZBuUAUu Xj9RPZUoV047waCuZY0QRf3KEfFfWK3xao3KHgWoLA VzZvwOQlp8RPvsRV6VeBNiGYkKcr4tbvDfvnJCs6FmmqVhyUDDnDicHELAPPZvPPNvFJ6KQDC9MWKfAl FzSeZdLSBqBXf6MFRNFFdIVvIsS5Ijs1DeWxM3AGXvKoGdOGfbENHuNjP5HF83sMxzDX4EGTDvYEJkBA 61KVLiAXTsKk4JEn2CPsFkZJ3wtm8IShIyFBRyNxlO Qsu1AEyxKK1IxKJcP1RoqWUma4cOSeAbC7KJSTG2QWRiQu1DUEPwFcEpCMSbEQtrSQ0zMAYqCLOVuIdn tfE8MM9DRT7iirGyUB8TPaFlFj5kOt8HUaWvV3NnV7ZsHZOeTMTUODtaUL5QHNcdRA0mJU6Jq4ICgVLj fQ3ymg6MPIQcMAJoOxxbzv2LIepfQ5H1iTjgFMAcUt ZkVRVHJNvgFJ6GZOTqJEJ0OYZwNZMkIHBRZaGjI92tPA8WI0Iwi19yGhO6VBMzLbMmDAweLZ53oCdvwk UxaYKniIhwOO2SIk9+YZtgtcMrWqdAQprpCMLBVbZhNeWHVlCkOTTvZELfIWHfAjU5NjBlDs7EDWEvTY AwMDAxNyAwMDAwMCBuDQowMDAwMDIyNDkzIDAwMDAw EA4WKwZaOOSuRlLuSBVuBAZoJYWqkl1URNIoOANbBQH0EsBtNVXkWJLzXPxoHJBlBEE9OgM9ADMuJKMr RA6NMaBqVEFzPXS0MUWeBREaYEBzed7AELChJZQkRhMeOjByZQFpKNPpOBtkWCYrZJY5RHCcGVQeWTAd TD2ROnVqAZTdJWs0KiqmFYJyHIIamb9SVDUsQPDnDF I5FMYtYJBjSUDcTIsjSMSdYLG5KUN4QPVdLHBkMV1PUsTdKNKqCVx6MOItHSVeGEOzlz4UDKDxFORqMQ NjQoTsONUhVLGqZVuoYMUlKQSqUyW0ZNFaKZFcFF4VEzKdRFOcAbG6VfAcVRIfUCFeop9DBLEpZMEjCE g3IzPhWYYtCXTeDZelCTVgQZDjAAa1ICGnJQMcQX8E NuSlMANzGtNkSrAmJPRvYZLdou8VBOYjUUKaVgR4ILUjUPInEOXlMAuuUGHuSEJwDQzoBNXcWTLzDT2L AgNrAHRgRqDiIOPsLUNqLADnbq7ZXVQqWORjONC8GyLmYXYvZIEjDFtbMLCcZEX1ZVS8GMYvQKVwUT2F DfLiVNnuOEXRCta4ITwmQ7v9KQFlST0OW3Jpk9LjKm OoRMAHNKbnKC0zqsRqWEAqFc2HR2bXDbsvWEMdDVe8L7FoXQJsX3BpFuZ5ROKbMSDaPBMbFQRtKw1kTK G7RzC1VMD8KFK3UTFiSMBsVHV8V6XoRTIlHHArWlGpXzZdCN3IKx8TUtA9JEP1uHHfTa9DBoB3RdjWCr UuWS8IBWg= ID Date Data Source [id number] 09/08/2020 08:05:49 PM EDT [facility] Name Value Range Interpretation Code Description Data Irish rce(s) Supporting Document(s) Progress Note [facility] LVOVDg9eTpLIZvNf26/HUAoqMGSqf2CiENmuAOk5KRhdZRGtT7RiOMZ6dR6gWYG2TKkQSrPfNlHxUSJ4 lbm [file] AgICAgICAgICAgICAgICAgICAgICAgICAgICAgICAg ICAgICAgICAgICAgICANCiAgICAgICAgICAgICAgICAgICAgICAgICAgICAgICAgICAgICAgICAgICAg ICAgICAgICAgICAgICAgICAgICAgICAgICAgICAgICAgICAgICAgICAgICAgICAgICAgICAgICANCiAg ICAgICAgICAgICAgICAgICAgICAgICAgICAgICAgIC AgICAgICAgICAgICAgICAgICAgICAgICAgICAgICAgICAgICAgICAgICAgICAgICAgICAgICAgICAgIC AgICAgICANCiAgICAgICAgICAgICAgICAgICAgICAgICAgICAgICAgICAgICAgICAgICAgICAgICAgIC AgICAgICAgICAgICAgICAgICAgICAgICAgICAgICAg ICAgICAgICAgICAgICAgICANCiAgICAgICAgICAgICAgICAgICAgICAgICAgICAgICAgICAgICAgICAg ICAgICAgICAgICAgICAgICAgICAgICAgICAgICAgICAgICAgICAgICAgICAgICAgICAgICAgICAgICAN CiAgICAgICAgICAgICAgICAgICAgICAgICAgICAgIC AgICAgICAgICAgICAgICAgICAgICAgICAgICAgICAgICAgICAgICAgICAgICAgICAgICAgICAgICAgIC AgICAgICAgICANCiAgICAgICAgICAgICAgICAgICAgICAgICAgICAgICAgICAgICAgICAgICAgICAgIC AgICAgICAgICAgICAgICAgICAgICAgICAgICAgICAg ICAgICAgICAgICAgICAgICAgICANCiAgICAgICAgICAgICAgICAgICAgICAgICAgICAgICAgICAgICAg ICAgICAgICAgICAgICAgICAgICAgICAgICAgICAgICAgICAgICAgICAgICAgICAgICAgICAgICAgICAg ICANCiAgICAgICAgICAgICAgICAgICAgICAgICAgIC AgICAgICAgICAgICAgICAgICAgICAgICAgICAgICAgICAgICAgICAgICAgICAgICAgICAgICAgICAgIC AgICAgICAgICAgICANCiAgICAgICAgICAgICAgICAgICAgICAgICAgICAgICAgICAgICAgICAgICAgIC AgICAgICAgICAgICAgICAgICAgICAgICAgICAgICAg ICAgICAgICAgICAgICAgICAgICAgICANCjw/qVDaB3skdGKckvJ8A5gmDg8UOr4KKE5gq6EmJZLfPTdu lcVlFouKRqDkIXDaZuxADul6AQkfYW0OyHWeR5DuH2WkYDtpVW3TSBEnQIXvwVFuDEKuRPSwCdD8CYNv HYqxWF7PwLPqGPjjBSEuKDZnFzPuYQWnQGHkIBEqJQ YgHVWOFIKoJZLjGwZjFEWoDZLuHS0GJJQqH491tuEuQn6BCj9ONxMpGW3xph3HZeWwRIEmAwfJGfi4GQ fhMV7EvMCbwUReMbSpOCBXUrQyA1eim4SsYqVqYJSBBTncKJ7Wo4BdwLUxCSi+Gd0SFP0zk9MeABjaNs CnIT2xgy1PMTiDInJjR0VksPalSPYxr4zjVKSwTE9k vNQsNLS0KZJrlKOwRJWQEJC6BQDeRYlpWCLZFIH2DXTlHxGdWdXjXUMpICn4MDSFPJyMJwZzE5Iys6Vz KdD9RYNuQbWtMJnlMHFtBuW6IZ60dYktUQ5OCJMrUOOkAV58ZCMkFJLyLe8ZRn2EHbUiKH6sck0DYsZt QKTaCtfAYmc8QEbwSF5JlEJeH5XspJVdo2wIAtTcB8 STBKRjEBTaRw2XBDGxYaXdYEGmDUzgBC9zYHDwTGRFcCdusvD9MG8WQK1ucxLoPD7LPdWtGc5aRa1LRy AhL6ZfO1OyTGCdOPAZZTisPW9GVGphGH2eJG0Qz7CVqJCfaP2fvn4COEHeIUPcEmtcoz8CBwbbQ6U8wG ceZPVyWxFnLUXIOIcvTB2ZYVVqXHI7ASLhUTPqRVSY EtRfV32hMI2MZ2Fkg36iHmN4TFDxNeJgLGxoFU25yTrxqjFncZZubZalCG4NFu7+DQplbmRvYmoNCnhy UKAIAvBwYsEAGgTjRYNyEPQuZLHgJbX2JzXkNi6OKFVwQWReZETyAoCkJCFmPLHgUPpvNIDxBGU3FSO8 JURgXHWcAL9ZCcMaHUHrMah4TzShJQXkDUJjig9KRM JhXRGaCAY7BwUdEYPkVLVrLEgqLSGhOTL9ULDuTVCeXQXiWI7DEhVzTHWoQTMxLMGsMCLoGPOqny2SFU VeGWYyQLDwRUBzFQLmRRNvAUqcSLQmLWU9FiHwNEPpLMCsST0TWmGyDWAvFFX7DXSfWYAdNXZioz8FSB JsGFXnCCT4FJIxAQDpZNLfATqdAZHiXYNdYTy5RXCq XTMeMV4UCdIfPVKoYWViXKRlXUXyETTwrf7QCKPkQRNcUyijLnHxDZHqJWRbNHwuYKHdYFK3JNO7HGEw KBXqQC4AEqTcJXIcMtJ7XtvhUNZfQHVkus0PFRDuXOTlSDN9WSEkKPViKKJuKVtoWKAtXVClLqN9VEZj KGBvZB7DInLgDDNjTnR0RVKrJDErIUHhui0NPOWlTY PdWho1LCXtMQWaLGByNFocKLQpRWNnNQJlTPFnFEKsCF0PIsFyPWWxTzCwIDDmIOQrAKFuhs0HLEYjUC NzIYTtYiPhELZmWNLuYOyaATHcKQK0FkYmJMMbSBBaFY5VYoWdZSYjDuLjAEjzIVEoZBXctz7VQGKvEN SaHsY1ApVdFWFzLATeSHmgSQTwUAB0NLR3ONBbYHPz FL9OXnWuEIVzRsL8ZCBbSJAfIBTpvj2NZZLnRCDhXqCnGcOqFKFcAHZaXWdjJCNnFQS8BPY5JGEuYOGf AZ4CWdPsPUAeGlnnPJRgVVXuRONlie7JQLCcIYIwXXHtDOHjELCuNGAfZVajVLZeEAA6LYwxVFJwUNLe BB1KIzXwSXXqFbe3PoFdDWTiQIBqaj0SQAAfPPS1IW IuHbEsQWGtPLOxSLk8rgKzcXJcMLy8HK1ED2JqmmBqPlICNh3Ny982RSV1RBCfEz8YN0agVc5yHLLyJX GVGs2DUCc3LPw7ClU8PRAyZZJqAgWlRcScZwQjLxX2X1I6Stp0NKA+BPg8QDJiOtBrLARaAoOvSSVcVv W6XDD6XUEdHSXtJDh8FU3wJSGBQb0+OEtodSHrfGwuXWESJcFdGzF2VHhqYUDFXx5H ID Date Data Source [id number] 09/08/2020 08:37:31 AM EDT [facility] Name Value Range Interpretation Code Description Data Irish rce(s) Supporting Document(s) Progress Note [facility] VHYRQr5vUtPIVgKx30/DIPncXIUqv9UlLKwiAOu5IRekVFSyU5GaWJT8sV5kTPT7SCwGEwRzDbNkAPS0 lbm [file] ICAgICAgICAgICAgICAgICAgICAgICAgICAgICAgIC NzNWKyIANlLXAlVKOhOHTtVAReDGJtXCUlVKKbBQJyRDThAMQvQAAlLTWbTKPgUYNwNBIhWBZdPB7RNV AgICAgICAgICAgICAgICAgICAgICAgICAgICAgICAgICAgICAgICAgICAgICAgICAgICAgICAgICAgIC AgICAgICAgICAgICAgICAgICAgICAgICAgICAgICAg HKXbZOAgAS0WUZXlKTMjSTAsHYZiKPFtQYLuCSMcOFZyMLKwEPMaYHGjFCPlXUOpDTYiJWLzOXRwBGXn PAZpLCWjFXKtPIThFDKuRDDaNQXhLEGoHKDcHMArVTVqTVIwNPGfGHBhMEYfPGTiZD7UIYSiTSLcRNVd ICAgICAgICAgICAgICAgICAgICAgICAgICAgICAgIC AgICAgICAgICAgICAgICAgICAgICAgICAgICAgICAgICAgICAgICAgICAgICAgICAgICAgICAgICAgIA 0KICAgICAgICAgICAgICAgICAgICAgICAgICAgICAgICAgICAgICAgICAgICAgICAgICAgICAgICAgIC AgICAgICAgICAgICAgICAgICAgICAgICAgICAgICAg UKTfBTYnMXNzAI7FJGOsEIXuOQCkQVKmABFsEOTkNNGuTFXzQSWiDZNqQGKdUHHeENAiZZRcONJlVIHo ICHoUJOkTOMxEYJgBFZiAUVcVHIhKFJoXNDdOUSqUYSjDAFvXKRqUFAbXFFfQBSeVEPrDR4BNLXfHISx ICAgICAgICAgICAgICAgICAgICAgICAgICAgICAgIC AgICAgICAgICAgICAgICAgICAgICAgICAgICAgICAgICAgICAgICAgICAgICAgICAgICAgICAgICAgIC BjBV0NJIWhKKRaFJVaXHMgUREdEQHcFGVqPLRnPUNvWXMzNPXoURKpRCOpFWEfLVJuNLNxTKLvLNCkZR AgICAgICAgICAgICAgICAgICAgICAgICAgICAgICAg UUFoAUCcNTAfMZAkHR6YNOScPDPqXNUcWIVdVIVpFGCbOAToMZGvTOPaZUKaMSNpGPGqJDPiTIFwDKSi XIFxITOaVMHhCRZuRNEmVGOtJAUdMWThNTJtHROgVOMcNONcFNXtTQGrHDNmTHGiGZKiPZQvKS9MWJ11 xHUcb5T9PPKsBW7jikx/Md4HYNfycxVshTFpJM3ASs KoNF9yll3WKmIgFZ5vcw2OIYmLZsQnA0O5fJUqKJXlUAJVCoBlP25uOHakXi27PTcbAAIiAzUnRJo3Xt 6AIbDbN5ehEJHaAtH5CKRlSkT3VWEyMuG1GZZzBuLpDBMqFEQbHUJsLPOKDTY3ABAuLjTeEfCjVFCwNU 8HAPLvO538oeJzZy9NQg2KHaMmAQ1fos8FUsDlYIEw CrxZVtu1AIddVA1TvXMjkLMqOTZfDZRYRaBfS5tel7IfVjKeCJWJBXbhGS7Da3DtdIOvRZq+Zv6HSX3t e5TkWCllUVSxWS6kbx5XIWmEJpOlI3ViwNkiCQPxt7xyOKDnCL9puBKgRMY7ZWDmbSNuGTWFPIQ9RCLs DYkfZTXYJNA8GWPwNb9zOUOzAFD2SnT6VWZMHD2PES MeDUHdwQWzAWLxHRPHSO5SLMuqIVQ9GAZluoUlyMWuBKhyHI8IJBLssdCdVvOcUEEXRQs+Wv3ORD8pd9 OoPKxqAsWhHH9jxp2XCVjRXwCkI3T6tBTqM9E6EUjhGx5GDITwSZNhRpJfNPSOOSdbOA2THT2gkgJ1NI 6YyHWbUQQpINTymBMnCNn8W08hmMUyBBncBA1IIJB+ Zeferino+Pq6DMQRcRKReYNJbCnLtLJYSSpShM7DkR4UQm0XyC3NlPL57dTewyiOmDQglQI9JDT4uGSRyOWRF HQ7OzBLzhU4lwiOgHBHhDUNQLgEaM14obMOhBEVlLNXxHZUdPc3ZIIKzE8AjmgWbqGmefhPqWEOnIFYW SX4AZXripeFkqOQpfMzsUE29nZxyQY5FUv2ZAvSzVT 0qwv5TlMDcBd0XGCTgFd0FMDBvBVXiNIVuQVK0UQDkDsQsPYudXUYaCWWaZZR9ZLXhDTRtNW9BTfSxVI ShGfikPcluZEKcILHjhz0WBWGxMRQ4DTD5XLGqSFAaFHQeNAunOCMoSMYkARG3BGOyXZJeYJ7LVnWtIZ UnBYEtYabfQUXkOQIzaq0QUYKmXWGzHHR6JxSyOAGd MNYnCDfyRVGlOMO4Llm8NUZjYPIsZY0QPhFaCYQlVDu8QFExXLVmDBWihx9BUTFfTPFiWIa4SCUfZBNh BQPtRScsZTPlEGZvZPd8JUBpCJOtQJ8SHiQgHENbGPG7DsnjNWXtUWKuca9EQEEoZEDuGHd3WPAcZGMr EEDvSSdoCTUkRED5DzY6FTVhQKDiPO7LCiFxEGZfWD y0IZLjYXIkAMVbuw2OZSSoHQZbUYxnLMDyHQWkGRJiNWhbBJDaCJNdMJH8DLYiRBHnRA3PMwUtUDOqWg V3MNCoPFUbGTQaft7ZOFEuEDOkLra0TYQfOFYnFMSgDAicDVNvBSUiLNB9DJFtRNAtHO4VEiLsYATnIe ElWZSsTQMqACTjrr1MGVEqWVQoAPI5KTWzMKRxGBDr PHoxNDHsYWZ9VmN0TGAyNYRbSY9FVbNyULEkNeT1MZmvKANdHQUfkt0SHGLiSMFxXSTnUsAaNACxGAJr SFxkJDLrRNG2RAZ0ZNCvYWFwLP7MTyNxSJRdCemtDYKsMJNaCCStua2PBBSnDLYhBcIkYDZxGTLdIYIo XLbzGZWfARV6TBDvIHIuJQHlPE2LZtDhBQLuQmr9YK rtQRXsAUHkab8CODTrVHJlJFi0IRWmOVEzFGTeSUicHFAqMBV2CAE0YOPlOPLnVM0EKfYjJYAaHhteXI dqVZSnFOBohr7VTNTmBAWfSQfoQXFjISRkVODmEObdSKRbITApFmHqEJTeGEUjEV3BYrQlWQIoBLSzZb EiAHWeOKKgma1IPBCyOXP3WRGoXwAmPTOqDYCrBMe3 tdIzqSBuMDa0MI6RB9OxqdXhJaeDXt6Yf807XTD5POZvMp9YW9rvWp0oWJUtDIYSOc6TYJn0GVYwRpQ4 KmLrLEIiKkKpIOS2ERN9QZK7MJM2AfO5GJx+JVwjQaTiCLHhBAW0JYKeRlO0WvU6GPqvETc6HECfAMW8 JU2yLKJRUn3+YLlewELcoQynVWWENmCeYnM8VQwiROVKLb5Y ID Date Data Source [id number] 09/06/2020 08:19:[address] [facility] Name Value Range Interpretation Code Description Data Irish e(s) Supporting Document(s) Leukocytes [#/volume] in Blood by Automated count 9.6 10*3/uL 4-10 [facility] Erythrocytes [#/volume] in Blood by Automated count 3.58 10*6/uL 4.6- 6.1 L [facility] Hemoglobin [Mass/volume] in Blood 11.6 g/dL 13.5-18 L [facility] Hematocrit [Volume Fraction] of Blood by Automated count 34.6 % 4 1-53 L [facility] Erythrocyte mean corpuscular volume [Entitic volume] by Auto mated count 96.6 fL 80-96 H [facility] Erythrocyte mean corpuscular hemoglobin [Entitic mass] by Automated count 32.4 pg 27-33 [facility] Erythrocyte mean corpuscular hemoglobin concentration [Mass/volume] by Automated count 33.6 g/dL 32.0-36.0 [facility] distribution width [Ratio] by Automated count 13.4 % 11.5-14.5 [facility] Platelets [#/volume] in Blood by Automated count 364 10*3/uL 150-400 [facility] Differential cell count method - Blood [facility] Neutrophils/100 leukocytes in Blood by Automated count 73 % [facility] Lymphocytes/100 leukocytes in Blood by Automated count 11 % [facility] Monocytes/100 leukocytes in Blood by Automated count 13 % [facility] Eosinophils/100 leukocytes in Blood by Automated count 2 % [facility] Basophils/100 leukocytes in Blood by Automated count 1 % [facility] Neutrophils [#/volume] in Blood by Automated count 7.06 10*3/uL 1.8-7 .0 [facility] Lymphocytes [#/volume] in Blood by Automated count 1.01 10*3/uL 1.2-4 .0 L [facility] Monocytes [#/volume] in Blood by Automated count 1.28 10*3/uL 0-0.8 [facility] Eosinophils [#/volume] in Blood by Automated count 0.14 10*3/uL 0-0.5 [facility] Basophils [#/volume] in Blood by Automated count 0.09 10*3/uL 0-0.2 [facility] Nucleated erythrocytes/100 leukocytes [Ratio] in Blood by Automated count 0 /100{WBCs} 0-0 [facility] ID Date Data Source [id number] 09/06/2020 09:12:[address] [facility] Name Value Range Interpretation Code Description Data Irish rce(s) Supporting Document(s) Albumin [Mass/volume] in Serum or Plasma by Bromocresol green (BCG) dye binding method 3.6 g/dL 3.5-5.2 [facility] Bilirubin.total [Mass/volume] in Serum or Plasma 0.2 mg/dL <1.2 [facility] Calcium [Mass/volume] in Serum or Plasma 9.1 mg/dL 8.6-10.0 [facility] Chloride [Moles/volume] in Serum or Plasma 105 mmol/L 98-107 [facility] Creatinine [Mass/volume] in Serum or Plasma 1.66 mg/dL 0.70-1.20 [facility] Glucose [Mass/volume] in Serum or Plasma 122 mg/dL 70-140 [facility] Alkaline phosphatase [Enzymatic activity/volume] in Serum or Plasma 90 U/L 40-129 [facility] Potassium [Moles/volume] in Serum or Plasma 4.2 mmol/L 3.4-5.1 [facility] Protein [Mass/volume] in Serum or Plasma 6.5 g/dL 6.4-8.3 [facility] Sodium [Moles/volume] in Serum or Plasma 138 mmol/L 136-145 [facility] Aspartate aminotransferase [Enzymatic activity/volume] in Serum or Plasma 18 U/L <40 [facility] Urea nitrogen [Mass/volume] in Serum or Plasma 26 mg/dL 6-20 H [facility] Osmolality of Serum or Plasma by calculation 292 mosm/kg 275-300 [facility] Creatinine/Urea nitrogen [Mass Ratio] in Serum or Plasma 16 [facility] Bicarbonate [Moles/volume] in Serum 22 mmol/L 22-29 [facility] Alanine aminotransferase [Enzymatic activity/volume] in Seru m or Plasma 28 U/L <41 [facility] Anion gap 3 in Serum or Plasma 11 mmol/L 8-15 [facility] Glomerular filtration rate/1.73 sq M pre dicted among non-blacks [Volume Rate/Area] in Serum or Plasma by Creatinine-based formula (MDRD) 46 mL/min/1.73m2 >60 L [facility] Glomerular filtration rate/1.73 sq M pre dicted among blacks [Volume Rate/Area] in Serum or Plasma by Creatinine-based formula (MDRD) 53 mL/min/1.73m2 >60 L [facility] ID Date Data Source [id number] 08/26/2020 12:24:30 PM EDT [facility] Name Value Range Interpretation Code Description Data Irish rce(s) Supporting Document(s) Progress Note [facility] [id number]tCOW0hD5wYDG0QSrSSoGmWtCnXtJ4 [facility] [file] [id number]== ID Date Data Source [id number] 08/24/2020 08:56:43 AM EDT [facility] Name Value Range Interpretation Code Description Data Irish rce(s) Supporting Document(s) Leukocytes [#/volume] in Blood by Automated count 12.1 10*3/uL 4-10 [facility] Erythrocytes [#/volume] in Blood by Automated count 4.16 10*6/uL 4.6- 6.1 L [facility] Hemoglobin [Mass/volume] in Blood 13.3 g/dL 13.5-18 L [facility] Hematocrit [Volume Fraction] of Blood by Automated count 40.4 % 4 1-53 L [facility] Erythrocyte mean corpuscular volume [Entitic volume] by Auto mated count 97.1 fL 80-96 [facility] Erythrocyte mean corpuscular hemoglobin [Entitic mass] by Automated count 31.9 pg 27-33 [facility] Erythrocyte mean corpuscular hemoglobin concentration [Mass/volume] by Automated count 32.9 g/dL 32.0-36.0 [facility] E[facility]th[facility] distribution width [Ratio] by Automated count 13.6 % 11.5-14.5 [facility] Platelets [#/volume] in Blood by Automated count 523 10*3/uL 150-400 [facility] Differential cell count method - Blood [facility] Neutrophils/100 leukocytes in Blood by Automated count 69 % [facility] Lymphocytes/100 leukocytes in Blood by Automated count 13 % [facility] Monocytes/100 leukocytes in Blood by Automated count 14 % [facility] Eosinophils/100 leukocytes in Blood by Automated count 3 % [facility] Basophils/100 leukocytes in Blood by Automated count 1 % [facility] Neutrophils [#/volume] in Blood by Automated count 8.39 10*3/uL 1.8-7 .0 [facility] Lymphocytes [#/volume] in Blood by Automated count 1.57 10*3/uL 1.2-4 .0 [facility] Monocytes [#/volume] in Blood by Automated count 1.71 10*3/uL 0-0.8 [facility] Eosinophils [#/volume] in Blood by Automated count 0.33 10*3/uL 0-0.5 [facility] Basophils [#/volume] in Blood by Automated count 0.10 10*3/uL 0-0.2 [facility] Nucleated erythrocytes/100 leukocytes [Ratio] in Blood by Automated count 0 /100{WBCs} 0-0 [facility] ID Date Data Source [id number] 08/24/2020 09:33:[address] [facility] Hospital Name Value Range Interpretation Code Description Data Irish rce(s) Supporting Document(s) Albumin [Mass/volume] in Serum or Plasma by Bromocresol green (BCG) dye binding method 3.5 g/dL 3.5-5.2 [facility] Bilirubin.total [Mass/volume] in Serum or Plasma 0.3 mg/dL <1.2 [facility] Calcium [Mass/volume] in Serum or Plasma 8.8 mg/dL 8.6-10.0 [facility] Chloride [Moles/volume] in Serum or Plasma 101 mmol/L 98-107 [facility] Creatinine [Mass/volume] in Serum or Plasma 1.98 mg/dL 0.70-1.20 [facility] Glucose [Mass/volume] in Serum or Plasma 100 mg/dL 70-140 [facility] Alkaline phosphatase [Enzymatic activity/volume] in Serum or Plasma 92 U/L 40-129 [facility] Potassium [Moles/volume] in Serum or Plasma 4.8 mmol/L 3.4-5.1 [facility] Protein [Mass/volume] in Serum or Plasma 6.5 g/dL 6.4-8.3 [facility] Sodium [Moles/volume] in Serum or Plasma 136 mmol/L 136-145 [facility] Aspartate aminotransferase [Enzymatic activity/volume] in Serum or Plasma 29 U/L <40 [facility] Urea nitrogen [Mass/volume] in Serum or Plasma 29 mg/dL 6-20 H [facility] Osmolality of Serum or Plasma by calculation 288 mosm/kg 275-300 [facility] Creatinine/Urea nitrogen [Mass Ratio] in Serum or Plasma 15 [facility] Bicarbonate [Moles/volume] in Serum 23 mmol/L 22-29 [facility] Alanine aminotransferase [Enzymatic activity/volume] in Seru m or Plasma 47 U/L <41 [facility] Anion gap 3 in Serum or Plasma 13 mmol/L 8-15 [facility] Glomerular filtration rate/1.73 sq M pre dicted among non-blacks [Volume Rate/Area] in Serum or Plasma by Creatinine-based formula (MDRD) 37 mL/min/1.73m2 >60 L [facility] Glomerular filtration rate/1.73 sq M pre dicted among blacks [Volume Rate/Area] in Serum or Plasma by Creatinine-based formula (MDRD) 43 mL/min/1.73m2 >60 L [facility] ID Date Data Source [id number] 07/27/2020 03:59:18 PM [facility] Name Value Range Interpretation Code Description Data Irish rce(s) Supporting Document(s) Progress Note [facility] [id number]tPFV0iF0eVZV4OLpBLyXeQbRqWxE7 lb [file] YNCg== ID Date Data Source [id number] 07/27/2020 03:59:[address] [facility] Hospital Name Value Range Interpretation Code Description Data Irish rce(s) Supporting Document(s) Progress Note [facility] NBSHQu7aHjNWRyCd83/IELbpNKDlo4KqVRvbPWq9ULbqOFJiP8JbHIN7wW8dGHY7XNtCNuNtZvGkNcE5 lbm [file] AgICAgICAgICAgICAgICAgICAgICAgICAgICAgICAgICAgICAgICAgICAgICAgICAgICAgICAgICAgIC AgICAgICAgICAgICAgICAgICAgICAgDQogICAgICAgICAgICAgICAgICAgICAgICAgICAgICAgICAgIC AgICAgICAgICAgICAgICAgICAgICAgICAgICAgICAg ICAgICAgICAgICAgICAgICAgICAgICAgICAgICAgICAgDQogICAgICAgICAgICAgICAgICAgICAgICAg ICAgICAgICAgICAgICAgICAgICAgICAgICAgICAgICAgICAgICAgICAgICAgICAgICAgICAgICAgICAg ICAgICAgICAgICAgICAgDQogICAgICAgICAgICAgIC AgICAgICAgICAgICAgICAgICAgICAgICAgICAgICAgICAgICAgICAgICAgICAgICAgICAgICAgICAgIC AgICAgICAgICAgICAgICAgICAgICAgICAgDQogICAgICAgICAgICAgICAgICAgICAgICAgICAgICAgIC AgICAgICAgICAgICAgICAgICAgICAgICAgICAgICAg ICAgICAgICAgICAgICAgICAgICAgICAgICAgICAgICAgICAgDQogICAgICAgICAgICAgICAgICAgICAg ICAgICAgICAgICAgICAgICAgICAgICAgICAgICAgICAgICAgICAgICAgICAgICAgICAgICAgICAgICAg ICAgICAgICAgICAgICAgICAgDQogICAgICAgICAgIC AgICAgICAgICAgICAgICAgICAgICAgICAgICAgICAgICAgICAgICAgICAgICAgICAgICAgICAgICAgIC AgICAgICAgICAgICAgICAgICAgICAgICAgICAgDQogICAgICAgICAgICAgICAgICAgICAgICAgICAgIC AgICAgICAgICAgICAgICAgICAgICAgICAgICAgICAg ICAgICAgICAgICAgICAgICAgICAgICAgICAgICAgICAgICAgICAgDQogICAgICAgICAgICAgICAgICAg ICAgICAgICAgICAgICAgICAgICAgICAgICAgICAgICAgICAgICAgICAgICAgICAgICAgICAgICAgICAg ICAgICAgICAgICAgICAgICAgICAgDQogICAgICAgIC AgICAgICAgICAgICAgICAgICAgICAgICAgICAgICAgICAgICAgICAgICAgICAgICAgICAgICAgICAgIC ZnOXMyWJHxXTVaAVDwICIbMEBgJYLtBTUjGJYhZLIlJVo0L1ilUHXaCQXhVG9wLNf1Pc0+DQoNCmVuZH A6zxVgmV7CJK8ln3PtHFfnEIXdr8RaGRf0JD7ZWOPr QQwqFE5BYFjjno0ALKEwWILnhZWJd6ioUwOaXTD7FTOaVfjnUB0CAUAcE5tmatLrXIAuVBCZUKhjVQZK YZzpKFGJSFRaIPKsGbMmAxPjTNOnMLDyHMKBGD5DYdPwJ1GhrR66WOJZOa0+XUosmwOxVfvXUqQ3IFFj b9OgPAe3IZ5JXWMmVzoxg8TzYsiqLKCNVFedQG9OLK D0JSR4KKEgPp8ZSEJtU027wvFpGI1LSh7CSeGrRO3vra4BHtqxNMPpHrqBXyn1DJxyEO6SlTOpVRhNph 8mqxAztrJGt8MhlbGvqCGIhLysx9UfFUVPaJTae1LvVLBVKSYrgXXoTjV5RtWmDiDmCUO3FxWvCT6lOC msRL8QTAR5EKqvCWJqMIMfC8oBPzUlGUYgXCDtrSfp OI9BMaOjO9JatbFghAOhBRPwDWNJKr6+JDqqltUiXyxFIsMbUZVsq2EnQVz6FP0DRDQoFXmmUD6LGKYe jG4dJAusZH0QOfGwHhRnYLUETkLlH72eyRHaTMr0C0NuHrFyJJKsXlleBHOjZIznKtRtZWUaYcQmQHpz ID4+ID4+WGlcPK2YQEhfbzRbHMIzDv0QBBJpWAYaXA 9pVKEfBEEgB1Z7bLqbLJHVArXvB9cdkvzkMQ0hCZSzZ486zUjcqiGvARY3OTHbIx0RPOGrJDM1YKUdaE NcFphgKRHWCQjqUB7NwBEtWFN7pT2ePMsbGIVdYZTsN9mOYsNhxYbhQS93iJfdgmByxBBuURt+Pg0KZW 1il9OwDGg9hnJwCSrwDPCcWTdzNLGcQKEfUXOdWBJ7 JTT6HYTWWeSzKGToBIRoXOqhZJLtQCWmdr1YWFAiVIS4GUi7XJOgDGTvNISvINunCLYmRNYyQmJ6EZLg LWHiQC5KCwOvXTIpNSFzHNnxCTLxLZXxro2XXODnTBIwTKN4RaRxDCKaHGAgTKgaUVTvNRL4Yjg3UFOm SFBlQY3VDuSqEEHvLBf0PNSuFBAyMUHhia7FVLIrFS JwYKAkCmNmZZAdVGRhITrxWAOsNJYySlH2LBNiQVMhFM7MMaZqHRWkPVU1ZWTlFEWfGWZken8DSKWsDW BeUQM4GsWeSBIwGCChXFgkBTViGXV0RseqIOAqEVIsKS6EGfMyLFEiNTxpZKblHOLnLSRoml6SVVQfKK AkQPXnCFTyJSRnVVTiBZwnQKEvKFRnGvW9CWGuBKTk XK5CLuHzTATaTuO1KVAoHMWnZVFpuf9CENNnIMZqYgqpUAZlICCbZXHqQOvkUAHlNCOpYCNuLEVpSJNp SU6XClLtXFPwDhHlFAMgHOSuZAMkzf5YMUTbWDMpAZW8MyZhNBOnJEDgLPvnLQYxTSC9AGJ7XMEgWCNq ET5YBlOeMENgVxZ0AmRxOBKfQBVwxz2PNYCgPXEoYs S9NzQjDOPwUGRyLUolBSSkPTL6Upq7IPMkGPItSY8SNcKrHSUzReF8HItnNBNqVHZnjj1DICWmCXPpXo a8LpHpKGEoTDXnNDdiNGNcHUU6OWyrWHIxRKHvRW9GUhPnXDBbBrl2FjhpBLHgMCMrcq2DDUOjLVTgVV MqCARpSOBoZTQgJVnkBKZqTMO2OoRcIPZzJUGkOP8S OhXkGNGcJqgmNIhsNKQhCVCart0CJWPsFPKpBETdNYFdCIZzIYYqGUygJMAiSYH2YIt9XJCnGQNmWN8P AbIaRETbHVQ5YJHuJQVnBVFuar2DXESqYYL9CPcqOLNvZYPbVYBhKHvuLCGoYYVxDBO2QAOiLTRkJY6T LyTqSLLdRDTqUuafLOHuLCMgnt3THMPvUCB9XdfnBJ OkLTHeDEIuWKwuWSXiLDLkQFR7UGOwMIDbTB5EMcGoOZQaKXAbNnVrJDKdXEEadz2IzXLvqUjdpz2DCD sBIp6CrGwgHYUyLYujMs3hlLY2WUWzQXRYCa2TifWvXZErSGEEOCcbHMApZZV0UUq2PCNxHuYjONR3IR N3CZViIQokIle3QWZ7OrJpQqD2FNY1IUr1AEQbEgQ3 WobbBxkwLgY9XVS8MuY4UpiwTQP+EB9hCPi+Ou0Hh2OeenB6twAeEEb0TdDtZQ3FEKFFR1DCKf== ID Date Data Source [id number] 06/29/2020 05:41:18 PM [facility] Name Value Range Interpretation Code Description Data Irish rce(s) Supporting Document(s) Progress Note [facility] [id number]/GYVtzUWGov4ZbOFwvUAa7NXosJAVsS0WrIKP2kI1jXRY6GRgCKmCzGvVqBCS5 lbm [file] [id number]= ID Date Data Source [id number] 06/22/2020 02:45:08 PM [facility] Name Value Range Interpretation Code Description Data Irish rce(s) Supporting Document(s) Progress Note [facility] [id number]/NJZdzUXFmf4AlWHjuSSh3UIztRLZtE8KnHXT5eF8oTZU7OCpHTbJnReOwPNSu lbm [file] A+AM0tTJs+Uo8Rq1CqllA0jlUqRRpqFXG8Cg8FSZRMN3VMGz== ID Date Data Source [id number] 06/22/2020 11:53:18 AM EST [facility] Name Value Range Interpretation Code Description Data Irish rce(s) Supporting Document(s) Leukocytes [#/volume] in Blood by Automated count 12.0 10*3/uL 4-10 [facility] Erythrocytes [#/volume] in Blood by Automated count 4.64 10*6/uL 4.6- 6.1 [facility] Hemoglobin [Mass/volume] in Blood 15.0 g/dL 13.5-18 [facility] Hematocrit [Volume Fraction] of Blood by Automated count 45.4 % 4 1-53 [facility] Erythrocyte mean corpuscular volume [Entitic volume] by Auto mated count 97.7 fL 80-96 H [facility] Erythrocyte mean corpuscular hemoglobin [Entitic mass] by Automated count 32.3 pg 27-33 [facility] Erythrocyte mean corpuscular hemoglobin concentration [Mass/volume] by Automated count 33.1 g/dL 32.0-36.[facility] distribution width [Ratio] by Automated count 13.8 % 11.5-14.5 [facility] Platelets [#/volume] in Blood by Automated count 286 10*3/uL 150-400 [facility] Differential cell count method - Blood [facility] Neutrophils/100 leukocytes in Blood by Automated count 70 % [facility] Lymphocytes/100 leukocytes in Blood by Automated count 16 % [facility] Monocytes/100 leukocytes in Blood by Automated count 9 % [facility] Eosinophils/100 leukocytes in Blood by Automated count 4 % [facility] Basophils/100 leukocytes in Blood by Automated count 1 % [facility] Neutrophils [#/volume] in Blood by Automated count 8.42 10*3/uL 1.8-7 .0 [facility] Lymphocytes [#/volume] in Blood by Automated count 1.88 10*3/uL 1.2-4 .0 [facility] Monocytes [#/volume] in Blood by Automated count 1.10 10*3/uL 0-0.8 [facility] Eosinophils [#/volume] in Blood by Automated count 0.46 10*3/uL 0-0.5 [facility] Basophils [#/volume] in Blood by Automated count 0.12 10*3/uL 0-0.2 [facility] Nucleated erythrocytes/100 leukocytes [Ratio] in Blood by Automated count 0 /100{WBCs} 0-0 [facility] ID Date Data Source [id number] 06/22/2020 12:41:07 PM [facility] Value Range Interpretation Code Description Data Irish rce(s) Supporting Document(s) Amylase [Enzymatic activity/volume] in Serum or Plasma 101 U/L 28- 103 [facility] ID Date Data Source [id number] 06/22/2020 12:41:07 PM [facility] Value Range Interpretation Code Description Data Irish rce(s) Supporting Document(s) Lipase [Enzymatic activity/volume] in Serum or Plasma 82 U/L 13-6 0 H [facility] ID Date Data Source [id number] 06/22/2020 12:41:07 PM [facility] Value Range Interpretation Code Description Data Irish rce(s) Supporting Document(s) Thyroxine (T4) free [Mass/volume] in Serum or Plasma 0.99 ng/dL 0.93- 1.70 [facility] ID Date Data Source [id number] 06/22/2020 12:41:07 PM [facility] Value Range Interpretation Code Description Data Irish rce(s) Supporting Document(s) Albumin [Mass/volume] in Serum or Plasma by Bromocresol green (BCG) dye binding method 4.0 g/dL 3.5-5.2 [facility] Bilirubin.total [Mass/volume] in Serum or Plasma 0.3 mg/dL <1.2 [facility] Calcium [Mass/volume] in Serum or Plasma 9.0 mg/dL 8.6-10.0 [facility] Chloride [Moles/volume] in Serum or Plasma 104 mmol/L 98-107 [facility] Creatinine [Mass/volume] in Serum or Plasma 1.31 mg/dL 0.70-1.20 [facility] Glucose [Mass/volume] in Serum or Plasma 98 mg/dL 70-140 [facility] Alkaline phosphatase [Enzymatic activity/volume] in Serum or Plasma 103 U/L 40-129 [facility] Potassium [Moles/volume] in Serum or Plasma 4.3 mmol/L 3.4-5.1 [facility] Protein [Mass/volume] in Serum or Plasma 6.3 g/dL 6.4-8.3 L [facility] Sodium [Moles/volume] in Serum or Plasma 135 mmol/L 136-145 L [facility] Aspartate aminotransferase [Enzymatic activity/volume] in Serum or Plasma 14 U/L <40 [facility] Urea nitrogen [Mass/volume] in Serum or Plasma 15 mg/dL 6-20 [facility] Osmolality of Serum or Plasma by calculation 281 mosm/kg 275-300 [facility] Creatinine/Urea nitrogen [Mass Ratio] in Serum or Plasma 11 [facility] Bicarbonate [Moles/volume] in Serum 24 mmol/L 22-29 [facility] Alanine aminotransferase [Enzymatic activity/volume] in Seru m or Plasma 23 U/L <41 [facility] Anion gap 3 in Serum or Plasma 7 mmol/L 8-15 L [facility] Glomerular filtration rate/1.73 sq M pre dicted among non-blacks [Volume Rate/Area] in Serum or Plasma by Creatinine-based formula (MDRD) 61 mL/min/1.73m2 >60 [facility] Glomerular filtration rate/1.73 sq M pre dicted among blacks [Volume Rate/Area] in Serum or Plasma by Creatinine-based formula (MDRD) 70 mL/min/1.73m2 >60 [facility] ID Date Data Source [id number] 06/22/2020 12:41:07 PM EST [facility] Name Value Range Interpretation Code Description Data Irish rce(s) Supporting Document(s) Thyrotropin [Units/volume] in Serum or Plasma 2.800 u[IU]/mL 0.270-4. 200 [facility] ID Date Data Source NON MACHINE II ENGRAVER CYTOLOGY REQ FOR SERVI 06/21/2020 12:00:00 AM EST eC W1 ([facility]) Name Value Range Interpretation Code Description Data Irish rce(s) Supporting Document(s) URINE eCW1 ([facility]) ID Date Data Source [id number] 06/07/2020 02:13:13 PM EST [facility] Name Value Range Interpretation Code Description Data Irish rce(s) Supporting Document(s) Progress Note [facility] KUQCMj9sEwUQPbKa17/DUYumNQOrg3NoVLgbDWp0VMftVYAjI1VxUBY0cJ0oFOG7YEfGZhBfNeZiMCT4 lbm [file] ICAgICAgICAgICAgICAgICAgICAgICAgICAgICAgICAgICAgICAgICAgICAgICAgICAgICAgICAgICAg ICAgICAgICAgICAgICAgICAgICAgICAgICANCiAgICAgICAgICAgICAgICAgICAgICAgICAgICAgICAg ICAgICAgICAgICAgICAgICAgICAgICAgICAgICAgIC AgICAgICAgICAgICAgICAgICAgICAgICAgICAgICAgICAgICANCiAgICAgICAgICAgICAgICAgICAgIC AgICAgICAgICAgICAgICAgICAgICAgICAgICAgICAgICAgICAgICAgICAgICAgICAgICAgICAgICAgIC AgICAgICAgICAgICAgICAgICANCiAgICAgICAgICAg ICAgICAgICAgICAgICAgICAgICAgICAgICAgICAgICAgICAgICAgICAgICAgICAgICAgICAgICAgICAg ICAgICAgICAgICAgICAgICAgICAgICAgICAgICANCiAgICAgICAgICAgICAgICAgICAgICAgICAgICAg ICAgICAgICAgICAgICAgICAgICAgICAgICAgICAgIC AgICAgICAgICAgICAgICAgICAgICAgICAgICAgICAgICAgICAgICANCiAgICAgICAgICAgICAgICAgIC AgICAgICAgICAgICAgICAgICAgICAgICAgICAgICAgICAgICAgICAgICAgICAgICAgICAgICAgICAgIC AgICAgICAgICAgICAgICAgICAgICANCiAgICAgICAg ICAgICAgICAgICAgICAgICAgICAgICAgICAgICAgICAgICAgICAgICAgICAgICAgICAgICAgICAgICAg ICAgICAgICAgICAgICAgICAgICAgICAgICAgICAgICANCiAgICAgICAgICAgICAgICAgICAgICAgICAg ICAgICAgICAgICAgICAgICAgICAgICAgICAgICAgIC AgICAgICAgICAgICAgICAgICAgICAgICAgICAgICAgICAgICAgICAgICANCiAgICAgICAgICAgICAgIC AgICAgICAgICAgICAgICAgICAgICAgICAgICAgICAgICAgICAgICAgICAgICAgICAgICAgICAgICAgIC AgICAgICAgICAgICAgICAgICAgICAgICANCiAgICAg ICAgICAgICAgICAgICAgICAgICAgICAgICAgICAgICAgICAgICAgICAgICAgICAgICAgICAgICAgICAg ICAgICAgICAgICAgICAgICAgICAgICAgICAgICAgICAgICANCjw/yGPsA6ogrSTaraJ8M9wnDa9PMz9M EZ6kl6CeSUSaRPxehgMaIheTJuAiQGZaKnkXAnu4UF liUG2SwOVlL8BzI4RcVNsoFO1REZOmKLWiuBGiIXYgFAJeLlK2WENcLVatDA1IbMUkBJaqGEPrDSPbPa BlSAQtEFIfASJkOFEeWVJCQGUyACQdEvJcBTYjHOIgZO3IPGKdO038gfAxBs4RMg2UCdGjPO8tln2WZt WhXWScWdyLBlz5QIclXL0ArRAywJYgZjEeBAJIEhEg W3adw9AeYiKyVVHLIVncAH3Vv4FxwLYfUVp+My8QRO7ym4OoNYopTtUrTM0pxl0NAKyZWzJcA7HflTue AQBbe9emTLYlAD1szYQrOQL6QTYnzDMiQFQLRRR0XRFjDBwvCQGPKSW4KGAqRiFkDlIqFxZiFWE2AANo VG1jDDulCP0YAKH0LKtcFYJgHNSrZ6eCPbCiPRNeUI XikAoqXQ9LIyDhH8WtvwJcdEReVACxZZLFQg6+HFzlfbUvEmgSMvV0NWJhu5ImALa4RM3OGICtDLptGB 6WQVNgjF7nGWuhKX7XMhLsTgInAXWJWpLdV61kbRUeJSr3G0ZhGwZcWULjFjhvASQmQDmpItRiYVKeMi BdDQogID4+ID4+MSfhAU0SKBsmcjMlTDQxDw7GJELf OESqAF4cVXDgIQQvC2L6oDuqZSUCBoJsQ7sliwfuYP6bTPVrH747sUynqdYrRYI2IKWvVt6PGLHmKEL7 FDRaqLNzSeFdNZBTEGigZK9NuQIhSPC0oC0uTQjjQVPdHASvC5vTGsQzlVybCJ41zJbtyaYoaZFlWJp+ Qj8CUK2xg6PcIUg3vpBeMBuuKJD3QCbdRYOmSPSoTL DwNZW7ZKB6YTYEMxXvGMHzNRHbJNeaKGDuYPCzya6ESGOtYUN8PSPwVECzWPXiDRTpRYxyYKRbCOMfIc L6TRAyIXCdFG0GWxMwGRZmDVMiVRdaPHFsGELnbd3AMTRnQRGpJOZnVGRvZYHzSBZzHCkgOJFiQRA3MM N1IQIuHQJkQW1GTgUwUVVuXKaxDJRjDKYsAZOwbk0O TULzSVOwCIU2QWYgGUGjFZQxAMccTCIlVWSoWWVdUIRqFEWzGY1IHvBzYMEoVLL9DANrCFRuGRUspz5H OPCsTUEpIBJhJERoJSYiPHCzGJtdWTNcOEG3DsLmEMRsSYRjFS9XLqEqZTSrJRl7XszjINKfCXCurz7I DQMuKMIzIOt5EjNtDXMkXDAlKCdaEQFpOFVxTHy0IH KkKTVzZR9KJzWwTJKzCcG4FJOuAARcCLDoko9RDPOxLBCoHjp4CILoGFNcDJZjKFbsJBAvDRQbXXQxWI WcNHRbWY5LJxNeRGVxGzMeIHYqAGEbYWEorw5ZKCKtWKXeGLOuGPMsTNBbAZLjAUdgRJQsJLE7EdX9HP FyCHLgZX1SLtItCRQqQvV9FWIoXRLlMRSwvx4VJHTo BKDpHjwoJHTmBQLtYVDdWNxjBIVsWIK3KrK0EOLeTSUlTW5RTbXcNYOjDcn8XNybLCWqLNRvsv8PUFPu WODvEimbCCSqMCPvWOHhVIouAHPsMPW2RRV4XOKvVZXrVO4MAkDkXLMwMso7LFuiPGHiKMAsgl1UTNLp BFZmHJe2KhTrEDHiNBUkMWibTUFtNHD8AWT2VMWqAC DjRE4KMcUjQODcFZRfGHdhWLPoGOMlrs7RKRWpZWY7RATtGYPpMTHgMRByQDzjBUQwVHCgSQxtKFYhSW NtFG9NNmWlBDKxBQI7MQVdLARgFKJtca3KXXBeNKU5TbJ4HzOvQHDkKUNaINmlKAVlJGNlSDS8VFNqKI MxNB0NMjJmIHWlKOR8GGBmWIHyQVKlfk8RjUFnlWym ge5QLSrIMm6IgWpxOXP4LLvdJm7rvIFyPgPeDIKZSn7BsvIfJAHlEQGDSLwtHLOzTTjgIpV9MWA2YYeg JHKgDSUoEpruUII5OXTqURM1JRDzOuY4FONdGBTmUwK4N4O8GEEzRjZoUJK1XFIwHRMaXlXvNhS+IF0g DQo+It0Qv3SpdvB7twXdWNc9Qss2WI8EWUCKY6DPTf== ID Date Data Source [id number] 06/03/2020 08:05:54 PM [facility] Name Value Range Interpretation Code Description Data Irish rce(s) Supporting Document(s) Progress Note [facility] IUPQFf2kGkSDSbNx29/MTErnWUGms6OcRYoxWFr5IMzbOGEkQ7NtMQS8zO8bNUP5GEjVSrKtHeEkEQYr lbm [file] ICAgICAgICAgICAgICAgICAgICAgICAgICAgICAgIC SoZRYlWKQdYNAkHXKpDXKuGCStIEKfAWQhDSLeFAXdCIOgNQXmEZBmEFXcGYOtFXDaEZ2RJBBhKVKrVK AgICAgICAgICAgICAgICAgICAgICAgICAgICAgICAgICAgICAgICAgICAgICAgICAgICAgICAgICAgIC AgICAgICAgICAgICAgICAgICAgICAgICAgICAgICAg OU7FZHJhWEMxBQZdXEXzVSUfDVXwIJVlSGWdXSDiMITpUHIjPREaVTUbHJNoIQPwYPTfHTZmBDFxXYPf DOMyARZoEMYkGUCuNSOyGWGnBMDjOIMxJSZpUHFyDRUfZPVjWPVtHHAqUZ8YOXUuDUQeWWLnYJQzZVEf ICAgICAgICAgICAgICAgICAgICAgICAgICAgICAgIC UcNYVbZLSpWGHmNDYwSGDvMMTmMTCdCZOcECNdGWEmLYDaZANsCUXlTOZlRYVtDBOqWARzSB6WPQHqWN AgICAgICAgICAgICAgICAgICAgICAgICAgICAgICAgICAgICAgICAgICAgICAgICAgICAgICAgICAgIC AgICAgICAgICAgICAgICAgICAgICAgICAgICAgICAg RCFwLX4VTJDkCSFsWGXgVWEiASMlBMYiEWFcHFDxJGGwHIEhLCSkQIVuSKJlZHYmHRPpNDXiFCSmTETg JXQiCMOwYLVgKWNaSMVlUGUqWWSrZXHqFGTaHIVwSCJtTMNvIUXhVJIaMVLdXN3DTCMtXJZhXDKzIJDi ICAgICAgICAgICAgICAgICAgICAgICAgICAgICAgIC TdVLJuQRSyVTKaBZTkSHYfSZZnZFAqNYYpEEZhIRYkOJRuOIAgTIBgVTPlKXSsALPbRQWsAKTiEW8ULC AgICAgICAgICAgICAgICAgICAgICAgICAgICAgICAgICAgICAgICAgICAgICAgICAgICAgICAgICAgIC AgICAgICAgICAgICAgICAgICAgICAgICAgICAgICAg PAPxYWLhDW8PAZGaNMAfEFCqMVGkQDNeISSwGUHlWAYaZYPlFDSvPNPuINMaPJNjENBtFFAfSLYoJFWu ZKLkWUNmHTPhGVInSIDxZPZnCESiCGQdVHLwUUDzFTBqZVFnYRPjDREjDJAhRBPjRN8NVISdUVMbGGGq ICAgICAgICAgICAgICAgICAgICAgICAgICAgICAgIC AgICAgICAgICAgICAgICAgICAgICAgICAgICAgICAgICAgICAgICAgICAgICAgICAgICAgICAgICAgIA 4IOD89pHEzj2O3ZEQfFA5uyyr/Ko7IKNojwjEdtNUrTV1ZGqUuMH3phg9ELlXuYL7wog3IMFwVKtSrX6 P3yWAmCMLjTGJQPoOcM96bEPmmGi34YUrqQIGxMvNr BRd7Be9FAoFsE8ioWSKiIwU9NDOvEpCsHOgxQE3Ve2FrvQKlVZu+Dd5OCD1jk0DcSQpoKFSrLC4ypg0B UBaULtWsI1TcyyN5LGOrCGNbPj8GQOScKPNmdHTnZZSiMJFIVyPzU9MkvG49BSEZCy7+DQplbmRvYmoN JhPoJKOfg1EoFUb3CE7IPQThTLc3uTXvNCFyJ7Kto1 IqAx27IONoFhvzQKbaccSrAlPfchG6LPGFYUSzlBTuLk7bAD0eDQOtFRBkGhS9VQRXZX4IFZEkWCKsfE RwKKSoCUGWWZ3FUCibHTW2FJOhhtUnoXZbXOqsYG2OURQulxHwEJwxAAYGANs+Vc0PFS6yu0VuHGhzZE MwFS2sep0FPJqVWuGtG3P4mKJcX4G1XJegUg9MOEJy IXZsUScdVMHQGWefSX7XFK9bezK1BU4JnZAiYIOhVIFslTFsOLt7S40zjWMiXAuwDY4WAVP+Zeferino+Pg0K UMJrSIMjKFCjUeCvOLCXDiXgP5YxK6TUp3AdR5RyEK07aWtykkMkSCnuMR8SLL5xWWMeTVPHPM0OxHPl tN8pvdExGCFqYKYWYaMzQ87fnNWaDWWzOYC9CDFiCp 5SVREtQ1SibnHwyXezcnCqWUFfJFOGHN6ZQMsraeMbzZIzdHyaBS14yEwaVG3MWo0DVbSaAB6jof4KeG VtDe5PUPCpIq1UUGIeOGPyKERbVLE7RHVrLbHdIQxrWCCsCARdYNG0PAHtXEMoUV2TAkDkGCLjNYe8Jr MqSQMrINLnre9PHHSiXPWtGCA1UTIsNZCjYJAuDZlu LWSyMVMxZSC6MGHaJGYbTM2AAxCbLFTaZJP1GZJyDVSkCBQkah0SETVbNRRaRsN7MfNoUWDpCPKuAAvd IAZlPNCjOlU6KNCyHREwGH3VKcXfFHArLXJ7OPAkZIYwNESmue8XYHLsLICbSdy1RRKaNAPnGZIkEYxv QGGfCTV2DWJ9HWJrTWHzDT1MAuJjILCnGFOvURWnUY SyRMKzha8HFIRsFIBsQIPfQDTzVHAlNRJtORuhAMZvAIN4HnzgWMTnKKXuRR7EPrXdCWVkXNxeYGmvAV ItNGAqcs1YFNAnQVMpGdSrIYWnYSUnADGxHRkePHNqWBC5VFA6DZOzEPHoQF9AUiZeOADzUYj9JEMvCF LwAIRycl9PSJRwURKfIOQyEKFsPHMfHPYaFIscVYUb NUC0RWRtGOCyOCMdYI3VQkLyWFFvAUp0OJDvLHAgLPRpyu8WHAOnKOPsPUV3FBAtDXErDDMfTAw1ltYy dHNiWBk0OV8GH7LnovUuThUFDe2Hk673PFMhRPAjSe0UU9xdLj3hGHJlFMLMPc1MMLb8CSEpEiv7TdS0 FaG8JgheSaumLXyuRvJuBqP1AnKhJaH+FDk3BEOaWU zxZlFfBWJ8OSCuEhN1EKJgJJAjHAK9XLHfDv2iTHLRHg3+BVgvxHZxvOvoNXNTOoH2YMZ1ZAfoNLFZMl 0K ID Date Data Source [id number] 06/01/2020 02:04:49 PM [facility] Name Value Range Interpretation Code Description Data Irish rce(s) Supporting Document(s) Leukocytes [#/volume] in Blood by Automated count 11.8 10*3/uL 4-10 H [facility] Erythrocytes [#/volume] in Blood by Automated count 4.62 10*6/uL 4.6- 6.1 [facility] Hemoglobin [Mass/volume] in Blood 15.2 g/dL 13.5-18 [facility] Hematocrit [Volume Fraction] of Blood by Automated count 45.3 % 4 1-53 [facility] Erythrocyte mean corpuscular volume [Entitic volume] by Auto mated count 98.1 fL 80-96 H [facility] Erythrocyte mean corpuscular hemoglobin [Entitic mass] by Automated count 33.0 pg 27-33 [facility] Erythrocyte mean corpuscular hemoglobin concentration [Mass/volume] by Automated count 33.6 g/dL 32[facility]0-[facility] distribution width [Ratio] by Automated count 13.6 % 11.5-14.5 [facility] Platelets [#/volume] in Blood by Automated count 278 10*3/uL 150-400 [facility] Differential cell count method - Blood [facility] Neutrophils/100 leukocytes in Blood by Automated count 70 % [facility] Lymphocytes/100 leukocytes in Blood by Automated count 15 % [facility] Monocytes/100 leukocytes in Blood by Automated count 10 % [facility] Eosinophils/100 leukocytes in Blood by Automated count 4 % [facility] Basophils/100 leukocytes in Blood by Automated count 1 % [facility] Neutrophils [#/volume] in Blood by Automated count 8.30 10*3/uL 1.8-7 .0 H [facility] Lymphocytes [#/volume] in Blood by Automated count 1.82 10*3/uL 1.2-4 .0 [facility] Monocytes [#/volume] in Blood by Automated count 1.12 10*3/uL 0-0.8 H [facility] Eosinophils [#/volume] in Blood by Automated count 0.48 10*3/uL 0-0.5 [facility] Basophils [#/volume] in Blood by Automated count 0.09 10*3/uL 0-0.2 [facility] Nucleated erythrocytes/100 leukocytes [Ratio] in Blood by Automated count 0 /100{WBCs} 0-0 [facility] ID Date Data Source [id number] 06/01/2020 02:58:59 PM [facility] Name Value Range Interpretation Code Description Data Irish rce(s) Supporting Document(s) Amylase [Enzymatic activity/volume] in Serum or Plasma 61 U/L 28- 103 [facility] ID Date Data Source [id number] 06/01/2020 02:58:59 PM [facility] Name Value Range Interpretation Code Description Data Irish rce(s) Supporting Document(s) Lipase [Enzymatic activity/volume] in Serum or Plasma 25 U/L 13-6 0 [facility] ID Date Data Source [id number] 06/01/2020 02:58:59 PM [facility] Value Range Interpretation Code Description Data Irish rce(s) Supporting Document(s) Albumin [Mass/volume] in Serum or Plasma by Bromocresol green (BCG) dye binding method 4.1 g/dL 3.5-5.2 [facility] Bilirubin.total [Mass/volume] in Serum or Plasma 0.2 mg/dL <1.2 [facility] Calcium [Mass/volume] in Serum or Plasma 9.4 mg/dL 8.6-10.0 [facility] Chloride [Moles/volume] in Serum or Plasma 107 mmol/L 98-107 [facility] Creatinine [Mass/volume] in Serum or Plasma 1.37 mg/dL 0.70-1.20 H [facility] Glucose [Mass/volume] in Serum or Plasma 78 mg/dL 70-140 [facility] Alkaline phosphatase [Enzymatic activity/volume] in Serum or Plasma 106 U/L 40-129 [facility] Potassium [Moles/volume] in Serum or Plasma 4.3 mmol/L 3.4-5.1 [facility] Protein [Mass/volume] in Serum or Plasma 6.8 g/dL 6.4-8.3 [facility] Sodium [Moles/volume] in Serum or Plasma 142 mmol/L 136-145 [facility] Aspartate aminotransferase [Enzymatic activity/volume] in Serum or Plasma 13 U/L <40 [facility] Urea nitrogen [Mass/volume] in Serum or Plasma 18 mg/dL 6-20 [facility] Osmolality of Serum or Plasma by calculation 295 mosm/kg 275-300 [facility] Creatinine/Urea nitrogen [Mass Ratio] in Serum or Plasma 13 [facility] Bicarbonate [Moles/volume] in Serum 24 mmol/L 22-29 [facility] Alanine aminotransferase [Enzymatic activity/volume] in Seru m or Plasma 19 U/L <41 [facility] Anion gap 3 in Serum or Plasma 11 mmol/L 8-15 [facility] Glomerular filtration rate/1.73 sq M pre dicted among non-blacks [Volume Rate/Area] in Serum or Plasma by Creatinine-based formula (MDRD) 57 mL/min/1.73m2 >60 L [facility] Glomerular filtration rate/1.73 sq M pre dicted among blacks [Volume Rate/Area] in Serum or Plasma by Creatinine-based formula (MDRD) 67 mL/min/1.73m2 >60 [facility] ID Date Data Source [id number] 06/01/2020 02:58:59 PM [facility] Name Value Range Interpretation Code Description Data Irish rce(s) Supporting Document(s) Thyroxine (T4) free [Mass/volume] in Serum or Plasma 1.02 ng/dL 0.93- 1.70 [facility] ID Date Data Source [id number] 06/01/2020 02:58:59 PM [facility] Name Value Range Interpretation Code Description Data Irish rce(s) Supporting Document(s) Thyrotropin [Units/volume] in Serum or Plasma 3.250 u[IU]/mL 0.270-4. 200 [facility] ID Date Data Source [id number] 05/17/2020 09:07:03 AM EST [facility] Name Value Range Interpretation Code Description Data Irish rce(s) Supporting Document(s) Progress Note [facility] XOKZBo4zHuVPTjHf38/HDFjjASTpa6TmFGqiCTc4ZLgdZHUhE0LbDAU9yH9bONF8MXgUMaVyWyUpLxF8 lbm [file] /NtVOGYyaW1TWQnrb79ke8Mlfp3KOmZJsPJKpb7oRyNQjOIec9xC8oaUg3Y3mOyTdylsa1qkD0Te+heel scourer 8IEwIPgNB6kkuKLSLbf8n16j8egUDiqrvShUSpEv84 mjFqzOVQPmitJ2exe+yLhHaxWSciNLHnZVQQPU9NtVl0GYPkC3HfUqGuB4V2WQqExUeS9KmZKwxoLzNO 0oPAKEi/q0oYhBQemr51wyUceH7aVT1VbH+T5cyT+7OxbWy9MiPC9uPVTbXL0zfge/n9bGHvsQvMmbiV loWlE1znUm2nQQ+kWsnwMLT44ue8vI3bqJgWhk7TaV 1L9Bh/SgGSd+B8cINZHiz1bqMaexomc0tw3GfMBAc//SYqQtmVdy6M6vckt9Jn/RSfoc1cvip0h8NCra R8iknR3DJjwEqca8xVH97EIiNf1rUSWLJMLbve8Itr+pqj0UQL+vVlS2N0nniJ7yWYcnH1/gThO6zG9k yrKlR7o2RgLFClHSOkMx5GcGFbogqdQjykN+RQfxbT xwwDiDwlbYBAcCnDxBTt5Ll6RGXTrJF7vGAU9UNwN6awxs3S9kdxteC0h+SboKXUVrjNv1yM2Kh9LrU4 hYq2xthQm4OsGirAjL6ZRm0JrewpbZXlPLwYEF55JQe/1J1bxzr7MawWKelltgcrnN43I7VowjALR5p4 RZvAgCZA7Qsn4L9I+o8gxe/I9iUkUbO9cWze8MZtMX YQpFAjgR5lfeMJyT+xeJezl5VcAcWWQgtHImKB30dfTHWh9o6LKNlyCssaADd2PADMDeZ1U+Gypsy/qVbc [file] [id number] ID Date Data Source [id number] 05/16/2020 12:26:10 PM [facility] Name Value Range Interpretation Code Description Data Irish rce(s) Supporting Document(s) Progress Note [facility] HBIJZo5eBpZRLrIs98/VDOriVHFsb8BkLWytGCj3QHpaBEPwR3QkETJ6hD7sWKY9GZcIOnMkHfObDzM0 lbm [file] ICAgICAgICAgICAgICAgICAgICAgICAgICAgICAgIC NpGUEoGPChOYOqMIYnZRIsMESfUSOjPDTaXGLeVYIzSCNrPUJjDTAhYUNnSOFjKATkUV9JNPUuZXAeZY AgICAgICAgICAgICAgICAgICAgICAgICAgICAgICAgICAgICAgICAgICAgICAgICAgICAgICAgICAgIC AgICAgICAgICAgICAgICAgICAgICAgICAgICAgICAg DL5JMASwYBBmONYyPZLtMUKwPYEhFBUlUQBbTNEvZLSnEABxFKJdFVAeTXPmTCFtGPMoVYFiDWKpNKLt JUSmSEPmMFPjNWXnNUOeGUKzLVGjZWXkRUZnYYFdLJEkZELbXIWpKHFvBT0CXOPzHATvGLUtOBDsXMYs ICAgICAgICAgICAgICAgICAgICAgICAgICAgICAgIC WqGKArYIEkAEJtQBJxRLTwTIOfXIYlWHVoIUKvWSXmFFOdRQKsBDGpBCAeBXXvWMDzANMfWE4FMKNuFO AgICAgICAgICAgICAgICAgICAgICAgICAgICAgICAgICAgICAgICAgICAgICAgICAgICAgICAgICAgIC AgICAgICAgICAgICAgICAgICAgICAgICAgICAgICAg YFLjSO1VJZGoTEGiCBKjYTVgLBCmCDUuUSJjCOLlCUMdXOWfAEWfHTMtVQMbEURsTWJqQGHkTOKvPXRc YMJeRVUcEOChKQBsWKOmWEGiKDEvHMKmVDHvYKHyYTOyKWUbXTMtRDZtYOQhMZ4LDIGxKTCiEJFxUZPw ICAgICAgICAgICAgICAgICAgICAgICAgICAgICAgIC YnRYQzOYByBCAcONWdJNMkZVCnCLNrLDMoURLwAGCrUMDpNDZjRTNqMYMdPILcSRWgWEThBUKkSU7MFY AgICAgICAgICAgICAgICAgICAgICAgICAgICAgICAgICAgICAgICAgICAgICAgICAgICAgICAgICAgIC AgICAgICAgICAgICAgICAgICAgICAgICAgICAgICAg CBZiUBUtYR3LVJNaOTCsZCFwWGHaHDBdLFGbAKOpLWMiSXOlKBPeYVLvSUZpPUWwOJGnGGGvEUJuGJMp LHIhKJPbGYMkCRXhEBVuAGVxWAYsBMBzKTUsXCVkOKZmTSEgRNYpBECgIXHyHLSvWR5DAEPwZPYfDGMo ICAgICAgICAgICAgICAgICAgICAgICAgICAgICAgIC AgICAgICAgICAgICAgICAgICAgICAgICAgICAgICAgICAgICAgICAgICAgICAgICAgICAgICAgICAgIA 6BPF09aOQdl5C3BFIsBM0lshu/Bb2SELzgrqFqcLMzAX6FAwTnZK6tus8MDkHlPG6flm3RRUmHLiPbG5 A3iPJxQNIcJKMUQoQqV28kXBlgAg37JMhiIVGbZmXn BAa0Cw0XDyVgC5wnTKWyGrB7XJIgImUdCNuyDC4Lg9GmnFUqGVk+Df3XTQ1ai4IkUDwdEUGdFZ3qfz7D RWwLXzXyW2CmmdV7NDYhHWFrOp1NLDYxOOTsoAJeONKvTKINWoCpM3IooY47FKSWEf3+DQplbmRvYmoN BiIkRWOmv1RjKPp7CG7ESXImTOw7pRSsKFOfN2Onn1 FbIe58DKEpLmyaQHmaimHnHpQmgtK2TPEDSAEhbJHuSz4jHL7jHNBwIOJlMqJ1RNWUIF0ZVRAhHCKkxT PcJNQcYJSXDI9XVWzbIYB9RZDcjxHbbHFiFCnxLH1JFWGgfsUgVLjyZACJRKt+Yk0ZKO4us2MrFJmaEM WuYG9zfo8LFThEVqHxM7O0kJWeI3W9DUlgCk6XFPWk PPNwPZbkGVZHLLdgGE4MFO6donF7IW2KiUJbDTKpUURsqQOkEOt7K66tnWCvMDqyBK7NWUC+Zeferino+Pg0K POJrPWVzWTPqKbQlTQXCGzDxX6HlH7SMr9BfW9LxSK45kUwcqpZnWBqrTD8LYL6uSGDqBRGTRF5GfWCv cN9knkPmBSKgPZSLIkFzF52akRWjGFOgSQZ2ECMtNb 2PZJSpZ5DwfhOirKrlwvYzCABbWAPSNU4ESWlsomJzrQFndTubZU24yCqhJH3LQc7NJfPnFY6mcf9PaP GgTj3OQFXbCb2MJUYhJGOcZOLtRWL3FXXsGqLtYJomXWOjEUDtAEW0NUUrQXZgPM1FUuWuZQZxBKg0Gc NdNQOgEEXttv9JQLBjFIJoRFW4UTRrKNFmDAZyGHbx SCUtFJVaXWO7RAJpHMOkUB4MAdAlVAThAOE7UUWrTYTlFEVktl7OJHXlSCXiNzJ3FgNuPCIwVWPzAPjz RLMlULLlHyD7FDRjJONnJL6YSgUlWFVtYSH0QGQuPONeQKEzdg3QHZZiJOMoZlr1SCIfFDJkQMNyGDcq WMJdGBX9DGR6KAMuTUFbAX1EMjYlTSBqMRToMDLbKX MqISLeem7MARHwEUGfVEXhUWSpCCKpPXEoUPqtOECfKYC4PmjrJMUrBZJxRG2DLbHpLIMmLVbmLZflWO BiBMDzdw3KSPPlWHSfMzUiAFQwHQBgSQWzPZjaAGHkDRW5PKA3NKNdFRNoHQ6OUxCwHFEwMJs2CLIgCT ApRMBvub7MUNQtDDPuVOJsQPVmWVIaPTLeQSjvHCPm LGY7HBUuXPTgJRYpKW5BZwTlZDAuENg6SYXqBXRsTXVkzw7VSXCqAZPsUBB0DHIcNWYqXDUrKSx6axQw kERsBQr8FH1CO3XeghLfKtFZBu2Pr855XKNhWXKaOj7ZU6bwUv6xBXQsBBHDCr9FKJb9QJxtP0L0HpSl AOByERTrSzO6KtAlY7IqFTPpYQNtDoU+IDxkOWRjZD ifRcE4UtYdTkBrJXorBfK9XHWkGoC0MgWrDp0uPHVTLv6+BTlbfHVhzNygRYUNAvU3FTZ2WWenHEWKMc 0K ID Date Data Source [id number] 05/13/2020 01:26:58 PM [facility] Name Value Range Interpretation Code Description Data Irish rce(s) Supporting Document(s) Leukocytes [#/volume] in Blood by Automated count 9.3 10*3/uL 4-10 [facility] Erythrocytes [#/volume] in Blood by Automated count 4.45 10*6/uL 4.6- 6.1 L [facility] Hemoglobin [Mass/volume] in Blood 14.7 g/dL 13.5-18 [facility] Hematocrit [Volume Fraction] of Blood by Automated count 44.1 % 4 1-53 [facility] Erythrocyte mean corpuscular volume [Entitic volume] by Auto mated count 99.1 fL 80-96 H [facility] Erythrocyte mean corpuscular hemoglobin [Entitic mass] by Automated count 33.1 pg 27-33 H [facility] Erythrocyte mean corpuscular hemoglobin concentration [Mass/volume] by Autom[facility] 33.4 g/[facility].0-[facility] distribution width [Ratio] by Automated count 13.8 % 11.5-14.5 [facility] Platelets [#/volume] in Blood by Automated count 297 10*3/uL 150-400 [facility] Differential cell count method - Blood [facility] Neutrophils/100 leukocytes in Blood by Automated count 62 % [facility] Lymphocytes/100 leukocytes in Blood by Automated count 20 % [facility] Monocytes/100 leukocytes in Blood by Automated count 10 % [facility] Eosinophils/100 leukocytes in Blood by Automated count 7 % [facility] Basophils/100 leukocytes in Blood by Automated count 1 % [facility] Neutrophils [#/volume] in Blood by Automated count 5.70 10*3/uL 1.8-7 .0 [facility] Lymphocytes [#/volume] in Blood by Automated count 1.89 10*3/uL 1.2-4 .0 [facility] Monocytes [#/volume] in Blood by Automated count 0.97 10*3/uL 0-0.8 H [facility] Eosinophils [#/volume] in Blood by Automated count 0.64 10*3/uL 0-0.5 H [facility] Basophils [#/volume] in Blood by Automated count 0.10 10*3/uL 0-0.2 [facility] Nucleated erythrocytes/100 leukocytes [Ratio] in Blood by Automated count 0 /100{WBCs} 0-0 [facility] ID Date Data Source [id number] 05/13/2020 02:05:16 PM [facility] Name Value Range Interpretation Code Description Data Irish rce(s) Supporting Document(s) Amylase [Enzymatic activity/volume] in Serum or Plasma 67 U/L 28- 103 [facility] ID Date Data Source [id number] 05/13/2020 02:05:16 PM [facility] Name Value Range Interpretation Code Description Data Irish rce(s) Supporting Document(s) Lipase [Enzymatic activity/volume] in Serum or Plasma 21 U/L 13-6 0 [facility] ID Date Data Source [id number] 05/13/2020 02:05:16 PM [facility] Name Value Range Interpretation Code Description Data Irish rce(s) Supporting Document(s) Albumin [Mass/volume] in Serum or Plasma by Bromocresol green (BCG) dye binding method 4.1 g/dL 3.5-5.2 [facility] Bilirubin.total [Mass/volume] in Serum or Plasma 0.3 mg/dL <1.2 [facility] Calcium [Mass/volume] in Serum or Plasma 9.2 mg/dL 8.6-10.0 [facility] Chloride [Moles/volume] in Serum or Plasma 108 mmol/L 98-107 H [facility] Creatinine [Mass/volume] in Serum or Plasma 1.23 mg/dL 0.70-1.20 H [facility] Glucose [Mass/volume] in Serum or Plasma 102 mg/dL 70-140 [facility] Alkaline phosphatase [Enzymatic activity/volume] in Serum or Plasma 108 U/L 40-129 [facility] Potassium [Moles/volume] in Serum or Plasma 4.4 mmol/L 3.4-5.1 [facility] Protein [Mass/volume] in Serum or Plasma 6.5 g/dL 6.4-8.3 [facility] Sodium [Moles/volume] in Serum or Plasma 141 mmol/L 136-145 [facility] Aspartate aminotransferase [Enzymatic activity/volume] in Serum or Plasma 16 U/L <40 [facility] Urea nitrogen [Mass/volume] in Serum or Plasma 19 mg/dL 6-20 [facility] Osmolality of Serum or Plasma by calculation 295 mosm/kg 275-300 [facility] Creatinine/Urea nitrogen [Mass Ratio] in Serum or Plasma 16 [facility] Bicarbonate [Moles/volume] in Serum 24 mmol/L 22-29 [facility] Alanine aminotransferase [Enzymatic activity/volume] in Seru m or Plasma 19 U/L <41 [facility] Anion gap 3 in Serum or Plasma 10 mmol/L 8-15 [facility] Glomerular filtration rate/1.73 sq M pre dicted among non-blacks [Volume Rate/Area] in Serum or Plasma by Creatinine-based formula (MDRD) 65 mL/min/1.73m2 >60 [facility] Glomerular filtration rate/1.73 sq M pre dicted among blacks [Volume Rate/Area] in Serum or Plasma by Creatinine-based formula (MDRD) 76 mL/min/1.73m2 >60 [facility] ID Date Data Source [id number] 05/13/2020 02:05:16 PM [facility] Name Value Range Interpretation Code Description Data Irish rce(s) Supporting Document(s) Thyroxine (T4) free [Mass/volume] in Serum or Plasma 0.99 ng/dL 0.93- 1.70 [facility] ID Date Data Source [id number] 05/13/2020 02:05:16 PM [facility] Name Value Range Interpretation Code Description Data Irish rce(s) Supporting Document(s) Thyrotropin [Units/volume] in Serum or Plasma 3.110 u[IU]/mL 0.270-4. 200 [facility] ID Date Data Source [id number] 05/16/2020 04:28:00 PM [facility] CYTOPATHOLOGY REPORTName: RYAN CHUNGMRN: [id number] Number: [id number] Date: 05/13/2020 12:57Received Date: [...] cells and debris in the background./ld Gross Dqlsthotdvx41 ml cloudy yellow fluid received: 1 Thin- layer Pap stained slideprepared by filter preparation. This report may include one or more immunohistochemical stain results thatuse analyte specific reagents. All positive and negative controls havebeen reviewed by the attending pathologist and are satisfactory. The testswere developed and their performance characteristics determined by [facility] Pathololgy department. They have not been cleared or approved by [place] Food and Drug Administration. The FDA has determined that suchclearance or approval is not necessary. Name Value Range Interpretation Code Description Data Irish rce(s) Supporting Document(s) ID Date Data Source [id number] 05/06/2020 04:38:33 PM [facility] Name Value Range Interpretation Code Description Data [facility] rce(s) Supporting Document(s) Progress Note [facility] NBEPNw0jIbCXQwBw69/KGDkcDKSdl0SbZBzdIJi6QGbwSIKxE9ZhWKM9mN8sRJA8EIoPHmTuWaDdVtM0 [facility] [file] DnO4YsXPCmLdUV2ZEKp= ID Date Data Source [id number] 05/06/2020 04:38:28 PM [facility] Name Value Range Interpretation Code Description Data Irish rce(s) Supporting Document(s) Progress Note [facility] MILEBn1aCyEFLnOa95/YFSemTZVrq0ViOKgrJGg5XRhhHHGdS6SiXXT4lH8xRHP5GFsGAqKrLiRnJaS5 lbm [file] ICAgICAgICAgICAgICAgICAgICAgICAgICAgICAgICAgICAgICAgICAgICAgICAgICAgICAgICAgICAg ICAgICAgICAgICANCiAgICAgICAgICAgICAgICAgICAgICAgICAgICAgICAgICAgICAgICAgICAgICAg ICAgICAgICAgICAgICAgICAgICAgICAgICAgICAgIC AgICAgICAgICAgICAgICAgICAgICANCiAgICAgICAgICAgICAgICAgICAgICAgICAgICAgICAgICAgIC AgICAgICAgICAgICAgICAgICAgICAgICAgICAgICAgICAgICAgICAgICAgICAgICAgICAgICAgICAgIC AgICANCiAgICAgICAgICAgICAgICAgICAgICAgICAg ICAgICAgICAgICAgICAgICAgICAgICAgICAgICAgICAgICAgICAgICAgICAgICAgICAgICAgICAgICAg ICAgICAgICAgICAgICANCiAgICAgICAgICAgICAgICAgICAgICAgICAgICAgICAgICAgICAgICAgICAg ICAgICAgICAgICAgICAgICAgICAgICAgICAgICAgIC AgICAgICAgICAgICAgICAgICAgICAgICANCiAgICAgICAgICAgICAgICAgICAgICAgICAgICAgICAgIC AgICAgICAgICAgICAgICAgICAgICAgICAgICAgICAgICAgICAgICAgICAgICAgICAgICAgICAgICAgIC AgICAgICANCiAgICAgICAgICAgICAgICAgICAgICAg ICAgICAgICAgICAgICAgICAgICAgICAgICAgICAgICAgICAgICAgICAgICAgICAgICAgICAgICAgICAg ICAgICAgICAgICAgICAgICANCiAgICAgICAgICAgICAgICAgICAgICAgICAgICAgICAgICAgICAgICAg ICAgICAgICAgICAgICAgICAgICAgICAgICAgICAgIC AgICAgICAgICAgICAgICAgICAgICAgICAgICANCiAgICAgICAgICAgICAgICAgICAgICAgICAgICAgIC AgICAgICAgICAgICAgICAgICAgICAgICAgICAgICAgICAgICAgICAgICAgICAgICAgICAgICAgICAgIC AgICAgICAgICANCiAgICAgICAgICAgICAgICAgICAg ICAgICAgICAgICAgICAgICAgICAgICAgICAgICAgICAgICAgICAgICAgICAgICAgICAgICAgICAgICAg ICAgICAgICAgICAgICAgICAgICANCjw/sEAlJ7dvyBWwiaH6S8qqBm9VAw0XSN3lq3JzBXNtVThiqrQx UzrPOvEyIKZxHslLZsw9BPitXW4RhFScA1XyA9CvEN rzDI6ECHTiJKWlfYMwKKDxPLXfPiL7LIWzVHzbOK0UtZGlLAvtUBPzQSQdCcPdTPYzBQSiADVtKCFwBX XHALXmBLMfXjRzLWNxPQBoXP6XKAYfY801enJdVu7NTr9SKaVgWE6qyf8XYjidMHQlMhnROta0LMlxRN 5LzOXmmVGvPNDiGHINBpZvP0zik6OoRxiaHIVCSGgm IX4Ih2DqzZXtPTa+Dh9RMT2ml0PpQEtkTGYtXA9opr8ZVPnJHwHhM0SwmLmnRYQnx2gpPVOyGF0ehRSk TDL3UFRsaISqINYHOIG3XGQgDQsxLKUSSAH9BPXxBvSrEmNjAxBbPYW1BxPrNR2eUQvsTR6ZGNL0HWyk RPEdUCRoD5gHGcAfUZIaPQYrcZeqDC0VFaOfV9Cxlr VudCAzOCAwIFINCj4+RAjoqgQaMsaQOzJdLGQgi5LaXEp2GE7XHEBmNVhtCG9OLEWrvV1jWVroCD1CXf LkAmAtVSEAPaPlM04bdMGvICe8T3IzToZsPLPgFnzmCYVbBKsiPsPeETAvJrTmQNqwTZ5+ID4+DQogIC 6DGEikmzTsBHOaSz8GXCInOFPyGH5oRERqHDKgF5P6 qPsfHDKLXqKaO2guzoevQQ8kMXDjY809mHaubwNxCZO9OIMnWo7XBISbIWY6MBXamQAaBteeVCJLIDgp RK1LlMFxSLN2kU3yXIlhMMSuELVlI9yVBnRnxWbfNK29gDkjhxCcwHDkZEf+Cm6ENP8jq2WqSJl0qbIb ZSqlRLCsKVlpAPBoFZEpHOPiIXH1UNX3QKSZVuTpIC QeEHDqTRpcKEViVOJnvo9DSFWhBIW7GNF4NPUtHJPlVQYqKLuePMZiZXWqAfDeIFJuIRMePM6BRzNpTQ UlTXYxGNsvKTEbKGAsjz7ZQNLoVKXcKROcXKLxYZKqBMLbIEseZBXdCTE8LVC6JMWgORCiIR9QWfCcBZ NsVDazJkTcGXTnBECylp7SIWTzIYZfSBI5YFGiDEOw UNSxFQnrYMWpOIBnPVVgGEMfCQWcAY2NUhBvONPbLSB3SGBvVTViKQXupb7AOYNaJWBaIRImUTWeCDMx KERuTHhmOLGiWZF5AlSaFOOkRRErRZ8CZdVoGJZqSUlsXAXtTTYrILDobh2XWZIhGZPoHAL6NYIsTVXj XJIwKEeaUXYfYDPjHvdqBUGkAJAqJC1QVhItQAAnGu E7KordAGGhWDFsxh3YWVAtSRXmJrQvJEHcRKYhEQJoOPlyIFAqYLYaFyZ3TBFnIAPpDV1MViBuIXTtCx L1OSbmIQZfRRFiwr1TNYSbHGSlHwo4SsXoMFVzDDFqAJjnNEZaOPZdIIk9DTBlVSZvWI8TExWlETIpYh RsMbrgRJCvAPStjb4VXKCpBVWiYCH0CePvGUQxYBVq EFztIGTnHYV8AUQhORMxJHFjDS5LKpPjYFNoKwVnPkYlDGCkUVNqcs0OWJGhLCBgItB6ORTjIQJfAIRu HPqfCTKmKZG9OFW6PJIwMAGoKF1GTdWxANKyFpk6UiGfMEUdWCRtnu4WTHPnGRKhNoF7TNEsKIUnYUPo OSpzWFYlSZG0UWQ9GANmNVLaWZ4NWyCgFGBaZba9DC AnXXUtAXGdsf5MEXMcMUShODx9BoEdDYLaAQBkRCnbQXBqLRW1FDRdUWKeCIDlAV0QWaUqBVCmKDYtYk AzYJMpGNKrrh9RTXQnVAJ4ASJ2OBCnJCPwKXGmDTmvGATmQSZyCJUpUJBdECIrHC4PItKgAPOjJBE6RF LiYFVlRHWtjz6DSVIaZFG9NwS1JjMmXSMqTWCxYDee NBDhQHHcOGOnWOEnJLJoDZ1BTnHtILFxESV9LJTtNTRoNMZppw5PfJNuaCjvdj4SOQyUJf2XcXzmWMOt JMtwZu2rgLS0KDSwJAMIIp3ClmNlQBQiWTQVZGeyFIWhKQAvIOQ7GNRmEkHfJjQgECb1TAZzHCJiWjVv WJtgWQYlDcC0MRN8HewdPVKeIWX5EQC0CME0YxK2QO XhDMS0S3RqOkH+AT6aXWm+Hh0Sx3ScynX4ufIzZFy6IzwwDX4COLXAE8KDBm== ID Date Data Source [id number] 04/22/2020 01:26:12 PM [facility] Name Value Range Interpretation Code Description Data Irish rce(s) Supporting Document(s) Leukocytes [#/volume] in Blood by Automated count 11.1 10*3/uL 4-10 H [facility] Erythrocytes [#/volume] in Blood by Automated count 4.37 10*6/uL 4.6- 6.1 L [facility] Hemoglobin [Mass/volume] in Blood 14.5 g/dL 13.5-18 [facility] Hematocrit [Volume Fraction] of Blood by Automated count 43.5 % 4 1-53 [facility] Erythrocyte mean corpuscular volume [Entitic volume] by Auto mated count 99.4 fL 80-96 H [facility] Erythrocyte mean corpuscular hemoglobin [Entitic mass] by Automated count 33.1 pg 27-33 H [facility] Erythrocyte mean corpuscular hemoglobin concentration [Mass/volume] by Automated count 33.3 g/dL 32.0-36.0 [facility] width [Ratio] by Automated count 14.0 % 11.5-14.5 [facility] Platelets [#/volume] in Blood by Automated count 300 10*3/uL 150-400 [facility] Differential cell count method - Blood [facility] Neutrophils/100 leukocytes in Blood by Automated count 63 % [facility] Lymphocytes/100 leukocytes in Blood by Automated count 20 % [facility] Monocytes/100 leukocytes in Blood by Automated count 10 % [facility] Eosinophils/100 leukocytes in Blood by Automated count 6 % [facility] Basophils/100 leukocytes in Blood by Automated count 1 % [facility] Neutrophils [#/volume] in Blood by Automated count 7.08 10*3/uL 1.8-7 .0 H [facility] Lymphocytes [#/volume] in Blood by Automated count 2.20 10*3/uL 1.2-4 .0 [facility] Monocytes [#/volume] in Blood by Automated count 1.08 10*3/uL 0-0.8 H [facility] Eosinophils [#/volume] in Blood by Automated count 0.66 10*3/uL 0-0.5 H [facility] Basophils [#/volume] in Blood by Automated count 0.13 10*3/uL 0-0.2 [facility] Nucleated erythrocytes/100 leukocytes [Ratio] in Blood by Automated count 0 /100{WBCs} 0-0 [facility] ID Date Data Source [id number] 04/22/2020 02:10:23 PM [facility] Name Value Range Interpretation Code Description Data Irish rce(s) Supporting Document(s) Amylase [Enzymatic activity/volume] in Serum or Plasma 62 U/L 28- 103 [facility] ID Date Data Source [id number] 04/22/2020 02:10:23 PM [facility] Name Value Range Interpretation Code Description Data Irish rce(s) Supporting Document(s) Lipase [Enzymatic activity/volume] in Serum or Plasma 22 U/L 13-6 0 [facility] ID Date Data Source [id number] 04/22/2020 02:10:23 PM [facility] Name Value Range Interpretation Code Description Data Irish rce(s) Supporting Document(s) Albumin [Mass/volume] in Serum or Plasma by Bromocresol green (BCG) dye binding method 4.2 g/dL 3.5-5.2 [facility] Bilirubin.total [Mass/volume] in Serum or Plasma 0.3 mg/dL <1.2 [facility] Calcium [Mass/volume] in Serum or Plasma 8.8 mg/dL 8.6-10.0 [facility] Chloride [Moles/volume] in Serum or Plasma 102 mmol/L 98-107 [facility] Creatinine [Mass/volume] in Serum or Plasma 1.19 mg/dL 0.70-1.20 [facility] Glucose [Mass/volume] in Serum or Plasma 84 mg/dL 70-140 [facility] Alkaline phosphatase [Enzymatic activity/volume] in Serum or Plasma 94 U/L 40-129 [facility] Potassium [Moles/volume] in Serum or Plasma 4.2 mmol/L 3.4-5.1 [facility] Protein [Mass/volume] in Serum or Plasma 6.3 g/dL 6.4-8.3 L [facility] Sodium [Moles/volume] in Serum or Plasma 133 mmol/L 136-145 L [facility] Aspartate aminotransferase [Enzymatic activity/volume] in Serum or Plasma 14 U/L <40 [facility] Urea nitrogen [Mass/volume] in Serum or Plasma 18 mg/dL 6-20 [facility] Osmolality of Serum or Plasma by calculation 277 mosm/kg 275-300 [facility] Creatinine/Urea nitrogen [Mass Ratio] in Serum or Plasma 15 [facility] Bicarbonate [Moles/volume] in Serum 24 mmol/L 22-29 [facility] Alanine aminotransferase [Enzymatic activity/volume] in Seru m or Plasma 15 U/L <41 [facility] Anion gap 3 in Serum or Plasma 7 mmol/L 8-15 L [facility] Glomerular filtration rate/1.73 sq M pre dicted among non-blacks [Volume Rate/Area] in Serum or Plasma by Creatinine-based formula (MDRD) 68 mL/min/1.73m2 >60 [facility] Glomerular filtration rate/1.73 sq M pre dicted among blacks [Volume Rate/Area] in Serum or Plasma by Creatinine-based formula (MDRD) 79 mL/min/1.73m2 >60 [facility] ID Date Data Source [id number] 04/22/2020 02:10:23 PM [facility] Name Value Range Interpretation Code Description Data Irish rce(s) Supporting Document(s) Thyroxine (T4) free [Mass/volume] in Serum or Plasma 0.98 ng/dL 0.93- 1.70 [facility] ID Date Data Source [id number] 04/22/2020 02:10:23 PM [facility] Value Range Interpretation Code Description Data Irish rce(s) Supporting Document(s) Thyrotropin [Units/volume] in Serum or Plasma 2.850 u[IU]/mL 0.270-4. 200 [facility] ID Date Data Source [id number] 04/03/2020 01:51:18 PM [facility] Value Range Interpretation Code Description Data Irish rce(s) Supporting Document(s) Progress Note [facility] NVNFVy2zFuWOOtDi44/IEKlbJRHuj3WuVQurDNp2HLgwHHUoC5IiUDL9mO9aMAD2MCgAJqFyPeIoCABb 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 5EzTPLz+88xcYD9GsVXwbPfS9epa44butoVcJ5+UF6 sKhIPZrJrNLqrx/DkplcWqLTT8nvU5sp4ic0aMomvFtofBIEZDMxLvLVKuSuv1yCd0l6B403Yvyy7AYu QSoGlSpqCxw4LMuT/WE92V8xJiQgsfsiCR5vZDQxMhge87NU4bEabVTO57hNeBt7PqDz4vuExKbj4miL uaZ1+sMBbpvdN7ou6rh/Se2HaEqPMKMp+XnQM2s/Bg Quq6FNm+LeCkkENwFAdxCBzavgydDWWy/ZFjQYrKJypCx/jcFbZvrxdAQ7YNAWv1OVpASYB5+l8r7XPD f7U/NRjh+9CS1KU0eSvg5zjTNBdcZjzV7wXtTA7Ce2gUoOHZmuzAnEWbIUHJxVDxNgJUjrUTukITAp5v sp/AdhrAAyG9m0jmlxDdqPuI7qjwvs36041kgbFnS6 58rFpOknk0omU6lesb6TzOewHprwsaLT3Pq6bGDFz25Rp5OpihQlkCEAOy9Ssx/KaYwpCQNhpDsFU0wl 7dApeeBNbcEtI/RHzOvlUvBMOB8g8k33agUEZYeHcGpW7NTCHxWLL7TnLvKT12qfomJUMVlcGM3QKfK2 gQeLoH7TCzZAqVlFaM1Hccvt3Ue/zjklWyt/dw/QL6 ZA3C/6CeQSfNIteYb0HORJBgyz9jeAZQ0cHmtWkKMS+PaDNcKGA7CiYrWOkjh8QLKTndP/GKDxUxHFsf Teo8TTDHJWUFM98IBuIXVw8PXnQh7WNuwcp/wUFpE0Jp0017XPPLQ0CVMTuTWpJpOlpVQZcQMMF0fOf0 Ig+CXRZHkMHOQgm2e1iOWKncNDvosIB9VMVLUKLTVW [file] OZP9yHNrFq3OVCXsDcNHBzQuWI5KNFy= ID Date Data Source [id number] 04/03/2020 01:51:13 PM [facility] Name Value Range Interpretation Code Description Data Irish rce(s) Supporting Document(s) Progress Note [facility] QARLBh8xXjNCGqEe74/AJSscWSMeo1DjPYimJUh1NCgxDIIgK4DqAZJ1xP3fAJM7PGrEVwUaIhExXMEx lbm [file] KKZkLvWrXHA1DDemO2C0JbV6TTQ0SQR9LJK+IF0g DQo+Gz5Le7AxexW4jgQmYRimOGE7QS2OIBUYC1KFDf== ID Date Data Source [id number] 04/03/2020 09:30:00 AM EST [facility] Name Value Range Interpretation Code Description Data Irish rce(s) Supporting Document(s) SARS coronavirus 2 RNA [facility] This lab was ordered by [facility] and reported by [facility]. ID Date Data Source [id number] 04/01/2020 01:12:23 PM T [facility] <0.1Serum levels of PSA should not be in terpreted as absolute evidence of the presence or absence of Cancer. Results obtained with different methods cannot be used interchangeably. This method is manufactured by [employer] and is an electrochemiluminesence immunoassay. Name Value Range Interpretation Code Description Data Irish rce(s) Supporting Document(s) Leukocytes [#/volume] in Blood by Automated count 11.7 10*3/uL 4-10 H [facility] Erythrocytes [#/volume] in Blood by Automated count 4.33 10*6/uL 4.6- 6.1 L [facility] Hemoglobin [Mass/volume] in Blood 14.4 g/dL 13.5-18 [facility] Hematocrit [Volume Fraction] of Blood by Automated count 43.1 % 4 1-53 [facility] Erythrocyte mean corpuscular volume [Entitic volume] by Auto mated count 99.6 fL 80-96 H [facility] Erythrocyte mean corpuscular hemoglobin [Entitic mass] by Automated count 33.2 pg 27-33 H [facility] Erythrocyte mean corpuscular hemoglobin concentration [Mass/volume] by Automated count 33.4 g/dL 32.0-36.0 [facility] E[facility]th[facility] distribution width [Ratio] by Automated count 13.9 % 11.5-14.5 [facility] Platelets [#/volume] in Blood by Automated count 298 10*3/uL 150-400 [facility] Differential cell count method - Blood [facility] Neutrophils/100 leukocytes in Blood by Automated count 67 % [facility] Lymphocytes/100 leukocytes in Blood by Automated count 19 % [facility] Monocytes/100 leukocytes in Blood by Automated count 9 % [facility] Eosinophils/100 leukocytes in Blood by Automated count 4 % [facility] Basophils/100 leukocytes in Blood by Automated count 1 % [facility] Neutrophils [#/volume] in Blood by Automated count 7.86 10*3/uL 1.8-7 .0 H [facility] Lymphocytes [#/volume] in Blood by Automated count 2.25 10*3/uL 1.2-4 .0 [facility] Monocytes [#/volume] in Blood by Automated count 1.05 10*3/uL 0-0.8 H [facility] Eosinophils [#/volume] in Blood by Automated count 0.44 10*3/uL 0-0.5 [facility] Basophils [#/volume] in Blood by Automated count 0.11 10*3/uL 0-0.2 [facility] Nucleated erythrocytes/100 leukocytes [Ratio] in Blood by Automated count 0 /100{WBCs} 0-0 [facility] ID Date Data Source [id number] 04/01/2020 01:53:21 PM [facility] <0.1Serum levels of PSA should not be in terpreted as absolute evidence of the presence or absence of Cancer. Results obtained with different methods cannot be used interchangeably. This method is manufactured by [employer] and is an electrochemiluminesence immunoassay. Name Value Range Interpretation Code Description Data Irish rce(s) Supporting Document(s) Amylase [Enzymatic activity/volume] in Serum or Plasma 77 U/L 28- 103 [facility] ID Date Data Source [id number] 04/01/2020 01:53:21 PM [facility] <0.1Serum levels of PSA should not be in terpreted as absolute evidence of the presence or absence of Cancer. Results obtained with different methods cannot be used interchangeably. This method is manufactured by [employer] and is an electrochemiluminesence immunoassay. Name Value Range Interpretation Code Description Data Irish rce(s) Supporting Document(s) Thyroxine (T4) free [Mass/volume] in Serum or Plasma 1.03 ng/dL 0.93- 1.70 [facility] ID Date Data Source [id number] 04/01/2020 01:53:21 PM [facility] <0.1Serum levels of PSA should not be in terpreted as absolute evidence of the presence or absence of Cancer. Results obtained with different methods cannot be used interchangeably. This method is manufactured by [employer] and is an electrochemiluminesence immunoassay. Name Value Range Interpretation Code Description Data Irish rce(s) Supporting Document(s) Thyrotropin [Units/volume] in Serum or Plasma 2.040 u[IU]/mL 0.270-4. 200 [facility] ID Date Data Source [id number] 04/01/2020 01:53:21 PM [facility] <0.1Serum levels of PSA should not be in terpreted as absolute evidence of the presence or absence of Cancer. Results obtained with different methods cannot be used interchangeably. This method is manufactured by [employer] and is an electrochemiluminesence immunoassay. Name Value Range Interpretation Code Description Data Irish rce(s) Supporting Document(s) Lipase [Enzymatic activity/volume] in Serum or Plasma 34 U/L 13-6 0 [facility] ID Date Data Source [id number] 04/01/2020 01:53:21 PM [facility] <0.1Serum levels of PSA should not be in terpreted as absolute evidence of the presence or absence of Cancer. Results obtained with different methods cannot be used interchangeably. This method is manufactured by [employer] and is an electrochemiluminesence immunoassay. Name Value Range Interpretation Code Description Data Irish rce(s) Supporting Document(s) Albumin [Mass/volume] in Serum or Plasma by Bromocresol green (BCG) dye binding method 4.2 g/dL 3.5-5.2 [facility] Bil[facility].total [Mass/volume] in Serum or Plasma 0.3 mg/dL <1.2 [facility] Calcium [Mass/volume] in Serum or Plasma 9.0 mg/dL 8.6-10.0 [facility] Chloride [Moles/volume] in Serum or Plasma 106 mmol/L 98-107 [facility] Creatinine [Mass/volume] in Serum or Plasma 1.40 mg/dL 0.70-1.20 H [facility] Glucose [Mass/volume] in Serum or Plasma 99 mg/dL 70-140 [facility] Alkaline phosphatase [Enzymatic activity/volume] in Serum or Plasma 94 U/L 40-129 [facility] Potassium [Moles/volume] in Serum or Plasma 4.5 mmol/L 3.4-5.1 [facility] Protein [Mass/volume] in Serum or Plasma 6.6 g/dL 6.4-8.3 [facility] Sodium [Moles/volume] in Serum or Plasma 139 mmol/L 136-145 [facility] Aspartate aminotransferase [Enzymatic activity/volume] in Serum or Plasma 17 U/L <40 [facility] Urea nitrogen [Mass/volume] in Serum or Plasma 23 mg/dL 6-20 H [facility] Osmolality of Serum or Plasma by calculation 292 mosm/kg 275-300 [facility] Creatinine/Urea nitrogen [Mass Ratio] in Serum or Plasma 16 [facility] Bicarbonate [Moles/volume] in Serum 23 mmol/L 22-29 [facility] Alanine aminotransferase [Enzymatic activity/volume] in Seru m or Plasma 19 U/L <41 [facility] Anion gap 3 in Serum or Plasma 10 mmol/L 8-15 [facility] Glomerular filtration rate/1.73 sq M pre dicted among non-blacks [Volume Rate/Area] in Serum or Plasma by Creatinine-based formula (MDRD) 56 mL/min/1.73m2 >60 L [facility] Glomerular filtration rate/1.73 sq M pre dicted among blacks [Volume Rate/Area] in Serum or Plasma by Creatinine-based formula (MDRD) 65 mL/min/1.73m2 >60 [facility] ID Date Data Source [id number] 04/01/2020 02:29:02 PM EDT [facility] <0.1Serum levels of PSA should not be in terpreted as absolute evidence of the presence or absence of Cancer. Results obtained with different methods cannot be used interchangeably. This method is manufactured by [employer] and is an electrochemiluminesence immunoassay. Name Value Range Interpretation Code Description Data Irish rce(s) Supporting Document(s) Prostate Specific Ag Free [Mass/volume] in Serum or Plasma [facility] Not Applicable ID Date Data Source [id number] 03/14/2020 09:41:40 PM EDT [facility] Name Value Range Interpretation Code Description Data Irish rce(s) Supporting Document(s) Progress Note [facility] LPELKu8fBbTIUgJl79/OQAvuWSYai0RvJKftXLy9HXozATSvM1QqQQS3lH9aTIP4GBzALuDzDnLtDRTd lbm [file] C4WDB5DCvpNZAyZNInIxQ4HZZ+DZ4mTZp+Vo0Oz3HyueL1onVcVWicVGl4Lz2JVCKFQ5IWEl== ID Date Data Source [id number] 03/14/2020 09:41:35 PM EDT [facility] Name Value Range Interpretation Code Description Data Irish rce(s) Supporting Document(s) Progress Note [facility] UHOUNm0vAsKNYlWu80/ZKPbzHNXyt3AvDKufTJn8WJsiRXLeS9KeTZV9cE1aKYI9RMzNPwLbYpAkRPEy lbm FdUjmIKjUyYCKmQlkZAmHrASkqIkmjnJMrEK4QkKW7XMPtO64lTUHvLFZkE0AgHWGlMcl+Yy1UQXMagE FfWL2VXpcG0R8aipbN3a5A/7HOedZoiPFS4G1FTuZSebgKakFBN7Y8C5vFgeTlzU8RJej3WS+9Sj5r4u wzJxlpKNtpEgTWyQzP/FZM9AudL2+sud1sdlNio4rV fijYeM7+/PhPJ9FWwgx6FW7PRtlxrHh8gHlf4/hDNTxJ8avIEWcvlLzKm4onRNt2aNt6hth1oH6hbUp1 NbFdGA2lwYw+bHByxOzAckPXPn/+nI1+B3ds8a6makilJS9nV7opKdGVRlgxkXEXGMAWcq5nmdnnWrp9 o4o5vYA2SnzJKhnFXtTEUkg9LYHbta1KffqDUC8QG9 NMCKOyO6USFt5A53WgMGNGdxN49khBh4LduLdDv3qvCYNSdyM3cDMcQWV9zx3QqLq3tmEs6NCS6cCVjU bDnqHNW0vkyPjDC2yImzVsm0IX0kWucy32/w60zDeCeHfUnSBFCM6QxlDKrUfb3vDGHVTP1MOk/l64x8 U3Q3ID0QfbPc+fqfvYv2n0fgEF24ID5CoEz4ajAXoT 72YqEjKMUE3ksWxiIzvp7hF/bA8N3TDEzi0FSH1lIXC8e8PZikEDqZnTZm9PyHC56/eDXd/zfdkAvEnm wiyBObAmhKgEITEV9HzUY6yAX6sdZNH5bSuWf8QqcgSfMaQedvSCgkEYVQx/PxE5jeVLcWjq3yeHiQQf KiiUjir5eeOZTCtZtDSEM7ACF3RIEWeYY4TSYILSpg [file] ICAgICAgICAgICAgICAgICAgICAgICAgICAgICAgICAgICAgICAgICAgICAgICAgICAgICAgICAgICAg ICAgICAgICAgICAgICAgICAgICAgICAgICAgICAgIC AgICAgICANCiAgICAgICAgICAgICAgICAgICAgICAgICAgICAgICAgICAgICAgICAgICAgICAgICAgIC AgICAgICAgICAgICAgICAgICAgICAgICAgICAgICAgICAgICAgICAgICAgICAgICANCiAgICAgICAgIC AgICAgICAgICAgICAgICAgICAgICAgICAgICAgICAg ICAgICAgICAgICAgICAgICAgICAgICAgICAgICAgICAgICAgICAgICAgICAgICAgICAgICAgICAgICAN CiAgICAgICAgICAgICAgICAgICAgICAgICAgICAgICAgICAgICAgICAgICAgICAgICAgICAgICAgICAg ICAgICAgICAgICAgICAgICAgICAgICAgICAgICAgIC AgICAgICAgICANCiAgICAgICAgICAgICAgICAgICAgICAgICAgICAgICAgICAgICAgICAgICAgICAgIC AgICAgICAgICAgICAgICAgICAgICAgICAgICAgICAgICAgICAgICAgICAgICAgICAgICANCiAgICAgIC AgICAgICAgICAgICAgICAgICAgICAgICAgICAgICAg ICAgICAgICAgICAgICAgICAgICAgICAgICAgICAgICAgICAgICAgICAgICAgICAgICAgICAgICAgICAg ICANCiAgICAgICAgICAgICAgICAgICAgICAgICAgICAgICAgICAgICAgICAgICAgICAgICAgICAgICAg ICAgICAgICAgICAgICAgICAgICAgICAgICAgICAgIC AgICAgICAgICAgICANCiAgICAgICAgICAgICAgICAgICAgICAgICAgICAgICAgICAgICAgICAgICAgIC AgICAgICAgICAgICAgICAgICAgICAgICAgICAgICAgICAgICAgICAgICAgICAgICAgICAgICANCiAgIC AgICAgICAgICAgICAgICAgICAgICAgICAgICAgICAg ICAgICAgICAgICAgICAgICAgICAgICAgICAgICAgICAgICAgICAgICAgICAgICAgICAgICAgICAgICAg ICAgICANCiAgICAgICAgICAgICAgICAgICAgICAgICAgICAgICAgICAgICAgICAgICAgICAgICAgICAg ICAgICAgICAgICAgICAgICAgICAgICAgICAgICAgIC AgICAgICAgICAgICAgICANCjw/kNNoQ4upyFWrcgL5D5eeDw6VDf0JRE2sw9PtSHFcDYgkgdRkZtkKOi YnYAZrIccRCba6ODrjQI9BcJDgT3HfF3AfQTcgII0ERFAzFJNukNOiVKMsMDWaApT8DCFyIXdqEG3QeP RzIFsgNSAwIFIgOCAwIFIgMTAgMCBSIDEyIDAgUiAx NSQpBHMvXVOsPLBGYX4ZPgZaK9YajI81WUQBZs2+GJcbxgXaJbmQDsG3OICsq5PeTSa0WR9LLQXsCtxl z0IrDFUyJWWIUVdkTD1BOHW0QWIpDWLfLo7EYGViI939heTaAP5KCk1JHzDvCE0qlm4CLUElKPDiGrkD Wdy5QGvoCQ2UtIDbHWoWsk3xahQruaXPp8PonxOlgP QMnqjzYLXqGGEzrYcyLT3OFIT0XJPxIodrMiOvKKLoQKgeIPJVSLxXTvFhM7Owz1ZzPnD0TKYmMxBdYW oxOHZzZxU3BY21yTnbGW2HFKAhIDIqKZ65ARO7TMDuHf1EXf4EEhLbNU4svn2TAxPnDA9fey4BBNsFOh AjZ9F7pBCbQ4Jsxf52ZK1MtGV5xHHzCR0OnA6gFH3X d2DuFKPwQaKpIDYyEGIoRSTjVFHvSiBfSD1WGTKoZzMxyTEeMHYyJFJ3YHNkIbF9IWUpCB8WPWQpGBV2 LW8YVM7VGsvqE8ASZNzghQcsWxHGMYO/JXTJVLJZLOthQOFiC31QG4ADXHqNNrorRHySJpvgKm0zSIf+ Jx8ZMV1mf6FiMXv6EMPcIT6hbi4CYBlUPsJbJ8A6yD NfU2V4SRkzBi3OYLLvNWMtWxohZDOURGnzYM5RZX5cgfQ2KX4YqDQjNOAxNEFyfLTwEVq2A78xgZFtKS awAN3PZBV+Zeferino+Re0OXSNlVDUlQGNbXuJpJSREDoYbB2NhQ7QRr3PiE4PvQM40xBrtdxFpESijYM0EMP 8gBXWnSZERNY0GyOJmcM9eprCgLRAnCAMCMbRuM17d vYPlCVXeTYH7EHRfFl4PZKJfU6RlkbGloVllusVbGTPrSRXYSB8MGXuhqnYfxDBloQrvTD76hBlpSN7K Sb2CAqSoJR0ylv5SaTPgZi1WIKS3Pv4NNVQoWIDgHSOeONZ2QTIqSlXtMIitDACsVSJjXKL4FXRmLCBz QI9QKoMwGMTcMNMpADmlWPWrRGCpzm0DHORiEXE0Sy VbMXGiLRQvNYLdVQqpWUHcDWRuRGC1NRKhWLLeLS8ZCbBrURRwMCZtBvNmJCGzTWTloa9UXNHkBTG3Xa I7PPRjQYZcMAMcRPpxPQSpAJQwFJK2JDEcLQOtIF1LGdCiFJBkAAf6YpHqVSEqGTEyau6MMPLjDJKmOO BbRXEnODMuLMZsCVhwUWCdXEMdBcD1JQMsBNTvEN6X GlBrEDBbMDO3EoCqXOChSTDtyq3LABSlNHZqVIQyUAJdDDRlXXUnCXpsFLAxZGT4XgDhEVAcSSYpUL0A QqGnWPHqTFo0WnUuXHYsFNSqhb7JFIWrPQIrNIo6ZTMmTSLdVRVaVZusPMHbQLDzSWW8CVFvBMQmES9M JnUgUFNwRqXnMlSzYOFlCBEggl5SREAgZKFuAaNzRv FkUBKfRFRrFXjzLINxTWVvPCX7DMAgCCOhUZ6OXwTwOEZtFlD1GPNyFECyFCWwcp4MJHYtCJAaKuV6EK LiTPQwKBAlFRulBEJlODAlWzPbDYVwSSKmKW3TMjVuLUPiTtZ8RIDzICCkIFOdsl8HDLAyKHOjEIR2PK OtHIDtLYMxOIprUTYxZET1CuN0AWNxRTUfGE2XWlMw RBMwUdF1GDIjSRWzGBEvqz4NAGTnRRFoQvP6EZRlTAEkEAQuZQfaMCAkNQY5FgDnKVWyXEFfWM0VQtXb BVUrHlexCRUzSWSfCVDcif4WNWHeLUYdXkP1LsXdYUItOUKdMRszITTiGSF7BxNvEJVhPJDtUB0YOlQa MHMaSal7DtTrPSShSXBvfv4KPOOzWPIeLCi8UvShXD WtSEZbOYscFTJoTIH4HBY4LUIhFPVzNN7SYdLqBLTtLth8HjBzVSFvIRTvgb3TFLMcVGI7GOS7NdUzIJ YmMKJcZPudBTMdJKNkJzQ4KVAbJGUpJM7GCvRvMSDeQUH9PQWvSSDlZEZmfh6THFEqRIR9OxU1GcDiKB BjUIArLOanCGGeQRClKhK0NWOoQSRyTC3EUaGpNVQf ITT5GMPyECTsKBLqca5EnLZbfIsqrt9KEFuOGc4ZtXffXIRzNTreXh0alXG7NVDgVINZMe2BjtVoIYAo NPZBTTknIBSrINO0PLC0GOVlAEh5KHL1BAdpUqQgYsNjWDF4AmFwUdT0ApJ7WUzhGJB7CmM1TTswILU8 RRMsNIRaUAF8TeeqLvZvIyl+XR9dOOz+Vw1Vk4UvnqS2fbLaEWa8Jla7GC4OPRNYV3NWVj== ID Date Data Source [id number] 03/11/2020 01:08:07 PM EDT [facility] Name Value Range Interpretation Code Description Data Irish rce(s) Supporting Document(s) Leukocytes [#/volume] in Blood by Automated count 11.0 10*3/uL 4-10 H [facility] Erythrocytes [#/volume] in Blood by Automated count 4.33 10*6/uL 4.6- 6.1 L [facility] Hemoglobin [Mass/volume] in Blood 14.9 g/dL 13.5-18 [facility] Hematocrit [Volume Fraction] of Blood by Automated count 42.8 % 4 1-53 [facility] Erythrocyte mean corpuscular volume [Entitic volume] by Auto mated count 98.9 fL 80-96 H [facility] Erythrocyte mean corpuscular hemoglobin [Entitic mass] by Automated count 34.5 pg 27-33 H [facility] Erythrocyte mean corpuscular hemoglobin concentration [Mass/volume] by Automated count 34.9 g/dL 32.0-[facility] distribution width [Ratio] by Automated count 14.4 % 11.5-14.5 [facility] Platelets [#/volume] in Blood by Automated count 299 10*3/uL 150-400 [facility] Differential cell count method - Blood [facility] Neutrophils/100 leukocytes in Blood by Automated count 64 % [facility] Lymphocytes/100 leukocytes in Blood by Automated count 20 % [facility] Monocytes/100 leukocytes in Blood by Automated count 9 % [facility] Eosinophils/100 leukocytes in Blood by Automated count 6 % [facility] Basophils/100 leukocytes in Blood by Automated count 1 % [facility] Neutrophils [#/volume] in Blood by Automated count 7.09 10*3/uL 1.8-7 .0 [facility] Lymphocytes [#/volume] in Blood by Automated count 2.14 10*3/uL 1.2-4 .0 [facility] Monocytes [#/volume] in Blood by Automated count 1.03 10*3/uL 0-0.8 H [facility] Eosinophils [#/volume] in Blood by Automated count 0.62 10*3/uL 0-0.5 [facility] Basophils [#/volume] in Blood by Automated count 0.10 10*3/uL 0-0.2 [facility] Nucleated erythrocytes/100 leukocytes [Ratio] in Blood by Automated count 0 /100{WBCs} 0-0 [facility] ID Date Data Source [id number] 03/11/2020 01:48:02 PM [facility] Name Value Range Interpretation Code Description Data Irish rce(s) Supporting Document(s) Amylase [Enzymatic activity/volume] in Serum or Plasma 123 U/L 28- 103 H [facility] ID Date Data Source [id number] 03/11/2020 01:48:02 PM [facility] Name Value Range Interpretation Code Description Data Irish rce(s) Supporting Document(s) Lipase [Enzymatic activity/volume] in Serum or Plasma 90 U/L 13-6 0 H [facility] ID Date Data Source [id number] 03/11/2020 01:48:[address] [facility] Hospital Name Value Range Interpretation Code Description Data Irish rce(s) Supporting Document(s) Albumin [Mass/volume] in Serum or Plasma by Bromocresol green (BCG) dye binding method 4.1 g/dL 3.5-5.2 [facility] Bilirubin.total [Mass/volume] in Serum or Plasma 0.2 mg/dL <1.2 [facility] Calcium [Mass/volume] in Serum or Plasma 9.1 mg/dL 8.6-10.0 [facility] Chloride [Moles/volume] in Serum or Plasma 104 mmol/L 98-107 [facility] Creatinine [Mass/volume] in Serum or Plasma 1.36 mg/dL 0.70-1.20 H [facility] Glucose [Mass/volume] in Serum or Plasma 75 mg/dL 70-140 [facility] Alkaline phosphatase [Enzymatic activity/volume] in Serum or Plasma 93 U/L 40-129 [facility] Potassium [Moles/volume] in Serum or Plasma 4.5 mmol/L 3.4-5.1 [facility] Protein [Mass/volume] in Serum or Plasma 6.6 g/dL 6.4-8.3 [facility] Sodium [Moles/volume] in Serum or Plasma 138 mmol/L 136-145 [facility] Aspartate aminotransferase [Enzymatic activity/volume] in Serum or Plasma 18 U/L <40 [facility] Urea nitrogen [Mass/volume] in Serum or Plasma 20 mg/dL 6-20 [facility] Osmolality of Serum or Plasma by calculation 286 mosm/kg 275-300 [facility] Creatinine/Urea nitrogen [Mass Ratio] in Serum or Plasma 14 [facility] Bicarbonate [Moles/volume] in Serum 25 mmol/L 22-29 [facility] Alanine aminotransferase [Enzymatic activity/volume] in Seru m or Plasma 22 U/L <41 [facility] Anion gap 3 in Serum or Plasma 8 mmol/L 8-15 [facility] Glomerular filtration rate/1.73 sq M pre dicted among non-blacks [Volume Rate/Area] in Serum or Plasma by Creatinine-based formula (MDRD) 58 mL/min/1.73m2 >60 L [facility] Glomerular filtration rate/1.73 sq M pre dicted among blacks [Volume Rate/Area] in Serum or Plasma by Creatinine-based formula (MDRD) 67 mL/min/1.73m2 >60 [facility] ID Date Data Source [id number] 03/11/2020 01:48:02 PM EDT [facility] Name Value Range Interpretation Code Description Data Irish rce(s) Supporting Document(s) Thyroxine (T4) free [Mass/volume] in Serum or Plasma 1.14 ng/dL 0.93- 1.70 [facility] ID Date Data Source [id number] 03/11/2020 01:48:02 PM EDT [facility] Name Value Range Interpretation Code Description Data Irish rce(s) Supporting Document(s) Thyrotropin [Units/volume] in Serum or Plasma 2.880 u[IU]/mL 0.270-4. 200 [facility] ID Date Data Source [id number] 03/11/2020 08:36:00 AM EDT [facility] Name Value Range Interpretation Code Description Data Irish rce(s) Supporting Document(s) Free T4 1.14 [facility] ([facility] Thyroid Stimulating Hormone 2.880 ME DENT ([facility]) ID Date Data Source [id number] 03/11/2020 08:36:00 AM EDT [facility] Name Value Range Interpretation Code Description Data Irish rce(s) Supporting Document(s) Albumin [Mass/volume] in Serum or Plasma 4.1 [facility] ([facility]) Alanine aminotransferase [Enzymatic activity/volume] in Serum or Pl asma 22 [facility] ([facility]) Calcium [Mass/volume] in Serum or Plasma 9.1 [facility] ([facility]) Carbon dioxide, total [Moles/volume] in Serum or Plasma 25 [facility] ([facility]) Chloride [Moles/volume] in Serum or Plasma 104 [facility] ([facility]) Alkaline phosphatase [Enzymatic activity/volume] in Serum or Plasma 9 3 [facility] ([facility]) Protein [Mass/volume] in Serum or Plasma 6.6 [facility] ([facility]) Aspartate aminotransferase [Enzymatic activity/volume] in Serum or Plasma 18 [facility] ([facility]) Potassium [Moles/volume] in Serum or Plasma 4.5 [facility] ([facility]) Sodium 138 [facility] Creatinine For GFR 1.36 [facility] ([facility]) Urea nitrogen [Mass/volume] in Serum or Plasma 14 [facility] ([facility]) Glucose 75 70-140 [facility] Procedure Social History Code Duration Value Status Description Data Source(s ) Alcohol intake 04/21/2021 12:00:00 AM EST Current drinker of al cohol (finding) completed Current drinker of alcohol (finding) [facility] Alcohol intake 01/20/2021 12:00:00 AM EDT Current drinker of al cohol (finding) completed Current drinker of alcohol (finding) [facility] Alcohol intake 01/09/2021 12:00:00 AM EDT Current drinker of al cohol (finding) completed Current drinker of alcohol (finding) [facility] Alcohol intake 12/23/2020 12:00:00 AM EDT Current drinker of al cohol (finding) completed Current drinker of alcohol (finding) [facility] Alcohol intake 2020 12:00:00 AM EDT Current drinker of al cohol (finding) completed Current drinker of alcohol (finding) [facility] Alcohol intake 11/23/2020 12:00:00 AM EDT Current drinker of al cohol (finding) completed Current drinker of alcohol (finding) [facility] Alcohol intake 11/09/2020 12:00:00 AM EDT Current drinker of al cohol (finding) completed Current drinker of alcohol (finding) [facility] Alcohol intake 10/26/2020 12:00:00 AM EDT Current drinker of al cohol (finding) completed Current drinker of alcohol (finding) [facility] Alcohol intake 09/22/2020 12:00:00 AM EDT Current drinker of al cohol (finding) completed Current drinker of alcohol (finding) [facility] Alcohol intake 09/21/2020 12:00:00 AM EDT Current drinker of al cohol (finding) completed Current drinker of alcohol (finding) [facility] Alcohol intake 09/06/2020 12:00:00 AM EDT Current drinker of al cohol (finding) completed Current drinker of alcohol (finding) [facility] Tobacco use and exposure 08/26/2020 12:00:00 AM EDT Smokeless to bacco non-user completed Smokeless tobacco non-user [facility] Cigarette pack-years 08/26/2020 12:00:00 AM EDT UNK completed [facility] Cigarettes smoked current (pack per day) - Reported 08/27/19 12:00:00 AM EDT UNK completed 0.12 [facility] Smoking 08/26/2020 12:00:00 AM EDT Light tobacco smoker comple tricia Light tobacco smoker [facility] Alcohol intake 08/26/2020 12:00:00 AM EDT Current drinker of al cohol (finding) completed Current drinker of alcohol (finding) [facility] Alcohol intake 08/24/2020 12:00:00 AM EDT Current drinker of al cohol (finding) completed Current drinker of alcohol (finding) [facility] Alcohol intake 07/27/2020 12:00:00 AM EST Current drinker of al cohol (finding) completed Current drinker of alcohol (finding) [facility] Smoking 06/21/2020 12:00:00 AM EST Current Smoker completed Curre nt Smoker eCW1 ([facility]) Alcohol intake 06/01/2020 12:00:00 AM EST Current drinker of al cohol (finding) completed Current drinker of alcohol (finding) [facility] Alcohol intake 05/13/2020 12:00:00 AM EST Current drinker of al cohol (finding) completed Current drinker of alcohol (finding) [facility] Alcohol intake 04/22/2020 12:00:00 AM EST Current drinker of al cohol (finding) completed Current drinker of alcohol (finding) [facility] Alcohol intake 04/01/2020 12:00:00 AM EDT Current drinker of al cohol (finding) completed Current drinker of alcohol (finding) [facility] Alcohol intake 03/11/2020 12:00:00 AM EDT Current drinker of al cohol (finding) completed Current drinker of alcohol (finding) [facility] Vital Signs ID Date Data Source UNK Name Value Range Interpretation Code Description Data Source(s) Systolic blood pressure 122 mm[Hg] 122 mm[Hg] M EDENT ([facility]) Diastolic blood pressure 78 mm[Hg] 78 mm[Hg] [facility] ([facility]) Heart rate 96 /min 96 /min [facility] ([facility]) Body height 68 [in_i] 68 [in_i] [facility] ([facility]) 5'8" Body weight 168.00 [lb_av] 168.00 [lb_av] MEDEN T ([facility]) Oxygen saturation in Arterial blood by Pulse oximetry 98 % 98 % [facility] ([facility]) Body mass index (BMI) [Ratio] 25.5 kg/m2 25.5 k g/m2 [facility] ([facility]) Body weight 164.6 [lb_av] 164.6 [lb_av] eCW1 ([facility]) Body height 67 [in_i] 67 [in_i] eCW1 ([facility]) Body mass index (BMI) [Ratio] 25.78 kg/m2 25.78 kg/m2 W1 ([facility]) Heart rate 71 /min 71 /min eCW1 ([facility]) Respiratory rate 18 /min 18 /min eCW1 ([facility]) Body temperature 97.4 [degF] 97.4 [degF] eCW1 ( [facility]) Systolic blood pressure 118 mm[Hg] 118 mm[Hg] e CW1 ([facility]) Diastolic blood pressure 79 mm[Hg] 79 mm[Hg] eCW1 ([facility]) ID Date Data Source [id number] 04/07/2021 10:10:44 AM EDT [facility] Name Value Range Interpretation Code Description Data Source(s) WEIGHT RECORDED 170.2 lb 170.2 lb [facility] ID Date Data Source [id number] 03/10/2021 12:29:48 PM EDT [facility] Name Value Range Interpretation Code Description Data Source(s) WEIGHT RECORDED 167 lb 167 lb [facility] ID Date Data Source [id number] 12/11/2020 10:58:19 PM EDT [facility] Name Value Range Interpretation Code Description Data Source(s) WEIGHT RECORDED 170.2 lb 170.2 lb [facility] ID Date Data Source [id number] 10/26/2020 03:37:16 PM EDT [facility] Name Value Range Interpretation Code Description Data Source(s) WEIGHT RECORDED 168.4 lb 168.4 lb [facility] ID Date Data Source [id number] 09/22/2020 12:28:33 PM EDT [facility] Name Value Range Interpretation Code Description Data Source(s) WEIGHT RECORDED 166.4 lb 166.4 lb [facility] ID Date Data Source [id number] 09/08/2020 08:37:31 AM EDT [facility] Name Value Range Interpretation Code Description Data Source(s) WEIGHT RECORDED 166 lb 166 lb [facility] ID Date Data Source [id number] 08/26/2020 12:24:30 PM EDT [facility] Value Range Interpretation Code Description Data Source(s) WEIGHT RECORDED 170 lb 170 lb [facility] Body height Measured 68 in 68 in [facility] ID Date Data Source [id number] 07/27/2020 03:59:13 PM [facility] Name Value Range Interpretation Code Description Data Source(s) WEIGHT RECORDED 184 lb 184 lb [facility] ID Date Data Source [id number] 06/29/2020 05:41:18 PM [facility] Name Value Range Interpretation Code Description Data Source(s) WEIGHT RECORDED 184 lb 184 lb [facility] ID Date Data Source [id number] 06/07/2020 02:13:13 PM [facility] Name Value Range Interpretation Code Description Data Source(s) WEIGHT RECORDED 180.8 lb 180.8 lb [facility] ID Date Data Source [id number] 05/17/2020 09:07:03 AM [facility] Name Value Range Interpretation Code Description Data Source(s) WEIGHT RECORDED 175.2 lb 175.2 lb [facility] ID Date Data Source [id number] 05/06/2020 04:38:33 PM [facility] Name Value Range Interpretation Code Description Data Source(s) WEIGHT RECORDED 175 lb 175 lb [facility] ID Date Data Source [id number] 04/03/2020 01:51:18 PM [facility] Name Value Range Interpretation Code Description Data Source(s) WEIGHT RECORDED 178.6 lb 178.6 lb [facility] Patient Treatment Plan of Care Planned Activity Planned Date Details Description Data Source (s) Levofloxacin 500 MG Oral Tablet 04/21/2021 12:00:00 AM [facility] Nitroglycerin 0.4 MG Sublingual Tablet 12/23/2020 12:00:00 AM [facility] Ondansetron 8 MG Oral Tablet 08/24/2020 12:00:00 AM [facility] Prochlorperazine 10 MG Oral Tablet 08/24/2020 12:00:00 AM [facility] Baclofen 10 MG Oral Tablet 08/24/2020 12:00:00 AM [facility] Baclofen 10 MG Oral Tablet 08/24/2020 12:00:00 AM [facility] sildenafil 100 MG Oral Tablet [Viagra] 06/21/2020 [facility] tramadol hydrochloride 50 MG Oral Tablet 04/09/2019 12:00:00 AM [facility] gabapentin 300 MG Oral Capsule 04/08/2019 12:00:00 AM [facility] Nitroglycerin 0.4 MG Sublingual Tablet [facility]
[2021-04-23] MEDS ORDERED: cefTRIAXone SOD 1 GM in D5W MINI-BAG PLUS 50 ML IV ONE (01:25)
[2021-04-23] MEDS ORDERED: AZITHROMYCIN INJ 500 MG, VIAL MATE ADAPTER 1 EACH in NS 250 ML IV ONE (02:00)
[2021-04-23 02:10] LABS: CK-MB VALUE MASS < 1.0 NG/ML (<3.6); CPK CREATINE PHOSPHOKINASE 70 U/L (39-308); MB/CK RELATIVE INDEX 1.43 (< OR =4)
[2021-04-23 02:27] LABS: TROPONIN I 0.09 NG/ML (< 0.10)
[2021-04-23] MEDS ORDERED: diazePAM 10MG/2ML SYRINGE (J3360 PER 5MG) IM ONE (02:35)
[2021-04-23] MEDS ORDERED: diazePAM 10MG/2ML SYRINGE (J3360 PER 5MG) IV ONE (02:35)
[2021-04-23 02:46] LABS: RSV AMPLIFICATION NEGATIVE (NEGATIVE)
[2021-04-23] MEDS ORDERED: MOM 30ML SUSPENSION UDC PO PRN (02:50)
[2021-04-23] MEDS ORDERED: CHLORASEPTIC SPRAY MT PRN (02:50)
[2021-04-23] MEDS ORDERED: ISOVUE-370 76% 100ML VIAL As Ordered ONE (02:56)
--- OUTSIDE RECORDS SUMMARY | 2021-04-23 03:26 | CCD ---
Author Author [facility] Organization [facility] Address Unknown Phone Unavailable Care Team Providers Care Nursing Home Assistant Name Role Phone ED, TEST DEFAULT Unavailable [...] Unavailable SYMENOW, G CHRISTOPHER PA Unavailable Unavailable Mosque, Geovanna Unavailable Unavailable ARISTIDESOMAIRA CAREYEN Unavailable Unavailable Omlor, E Ismael Unavailable Omlor, E Ismael Unavailable Omlor, E Ismael Unavailable [place], Christopher DO Unavailable Unavailable Liana, Christopher DO Unavailable Unavailable [place], Christopher DO Unavailable Unavailable Liana, Christopher DO Unavailable Unavailable Liana, Christopher DO Unavailable Unavailable [place], Christopher DO Unavailable Unavailable [place], Christopher DO Unavailable Unavailable Liana, Christopher DO Unavailable Unavailable Liana, Christopher DO Unavailable Unavailable [place], Christopher DO Unavailable Unavailable BASINET, JOHN Unavailable [...] Ballard MD Unavailable Unavailable SENSKA, C KALPANA HEAD ANIMAL KEEPER Unavailable Unavailable SENSKA, C KALPANA HEAD ANIMAL KEEPER Unavailable Unavailable SENSKA, C KALPANA HEAD ANIMAL KEEPER Unavailable Unavailable SENSKA, C KALPANA HEAD ANIMAL KEEPER Unavailable Unavailable SENSKA, C KALPANA HEAD ANIMAL KEEPER Unavailable Unavailable SENSKA, C KALPANA HEAD ANIMAL KEEPER Unavailable Unavailable SENSKA, C KALPANA HEAD ANIMAL KEEPER Unavailable Unavailable SENSKA, C KALPANA HEAD ANIMAL KEEPER Unavailable Unavailable SENSKA, C KALPANA HEAD ANIMAL KEEPER Unavailable Unavailable SENSKA, C KALPANA HEAD ANIMAL KEEPER Unavailable Unavailable SENSKA, C KALPANA HEAD ANIMAL KEEPER Unavailable Unavailable SENSKA, C KALPANA HEAD ANIMAL KEEPER Unavailable Unavailable SENSKA, C KALPANA HEAD ANIMAL KEEPER Unavailable Unavailable SENSKA, C KALPANA HEAD ANIMAL KEEPER Unavailable Unavailable SENSKA, C KALPANA HEAD ANIMAL KEEPER Unavailable Unavailable PASNICIUC, Fox LOVE MD Unavailable [...] is protected by Article 27-F of the [facility] Public Health law. If you continue you may have access to information: Regarding HIV / AIDS; Provided by facilities licensed or operated by the [facility] Office of Mental Health; or Provided by the [facility] Office for People With Developmental Disabilities. If such information is present, then the following [facility] mandated warning applies: This information [...] law may result in a fine or long term sentence or both. A general authorization for the release of medical or other information is NOT sufficient authorization for further disc losure. 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 Unknown Female Problem MEDENT ([facility]) Encounters Encounter Providers Location Date Indications Data Source(s ) Outpatient Attender: John Moody MD 05/05/2021 12:00:00 A M [facility] Outpatient Attender: John Moody MD 04/28/2021 12:00:00 [facility] Outpatient Referrer: ISMAEL ANAND 04/25/2021 12:00:00 AM [facility] Outpatient Referrer: ISMAEL ANAND 04/21/2021 12:00:0 0 AM EST Shortness of breath [facility] Shortness of breath Outpatient Referrer: John Moody MD 04/21/2021 12:0 0:00 AM [facility] Shortness of breath [facility] Shortness of breath Admission cancelled. Disregard status an d admitted date. Outpatient Attender: John Moody MD 04/21/2021 12:00:00 A [facility] Outpatient Attender: Eli Casper RPA-CReferrer: Miquel Ballard MD EMERGENCY ROOM- LAB NOT ORDERED BY [facility] 04/18/2021 12:08:00 PM [facility] - 04/18/2021 12:08:00 PM [facility] Outpatient Attender: OBDULIA Scruggsender: DEFAULT ED 04/07/2021 12:00:00 AM [facility] Outpatient Attender: Ismael Singleton er: ISMAEL Haqender: John Moody MD [id number] 03/24/2021 12:00:00 AM EDT - 03/24/2021 04:03:26 PM [facility] Outpatient Attender: YUE Wilkinsender: DEFAULT ED 03/10/2021 12:00:00 AM [facility] Outpatient Attender: John Moody MD Dinesh-ONCCACTR 2020 12:00:00 AM EDT - 02/24/2021 03:00:29 PM [facility] Outpatient Attender: John Moody MD 02/03/2021 12:00:00 A [facility] Outpatient Attender: KATE RIVERA MD 01/31/2021 12:00: 00 AM [facility] Outpatient Attender: Mohit Pro 01/25/2021 [facility] Attender: KALPANA WASHINGTON NP [id number] 2020 12:00:00 AM EDT - 01/20/2021 03:31:51 PM [facility] Outpatient Attender: KATE RIVERA MD 01/17/2021 12:00: 00 AM [facility] Outpatient Attender: John Arango-ONCCACTR 2020 12:00:00 AM EDT - 01/06/2021 03:48:12 PM [facility] Outpatient Attender: KATE RIVERA MD 01/03/2021 12:00: 00 AM [facility] Outpatient Attender: KATE RIVERA MD 12/27/2020 12:00: 00 AM [facility] Outpatient Attender: KALPANA WASHINGTON NP A-ONCCACTR 2020 12:00:00 AM EDT - 12/23/2020 03:52:43 PM [facility] Outpatient Attender: John Moody MD A-ONCCACTR 2020 12:00:00 AM EDT - 2020 04:13:08 PM [facility] Outpatient Attender: John Moody MD [id number] 2020 12:00:00 AM EDT - 11/23/2020 03:41:13 PM [facility] Outpatient Attender: John Moody MD [id number] 2020 12:00:00 AM EDT - 11/09/2020 03:34:08 PM EDT Malignant 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 Medications Medication Brand Name Start Date Product Form Dose Route Admi nistrative Instructions Pharmacy Instructions Status Indications Reaction Description Data Source(s) Levofloxacin 500 MG Oral Tablet levoFLOXacin 500 MG Or al Tablet (Levaquin) levoFLOXacin 500 MG Oral Tablet (Levaquin) 04/21/2021 12:00:00 AM EST 500 mg Oral active Take 1 tablet by prudencio th daily for 10 days [facility] atorvastatin 40 MG Oral Tablet Atorvastatin Calcium 01/25/2021 1 2:00:00 AM EDT ORAL active MEDENT ( [facility]) Lisinopril 5 MG Oral Tablet Lisinopril 01/25/2021 12:00:00 AM EDT ORAL active [facility] ([facility]) Aspirin 81 MG Chewable Tablet Aspirin 81 Low Dose 01/25/2021 12:00: 00 AM EDT ORAL active [facility] ([facility]) Calcium Carbonate 1500 MG / Cholecalciferol 800 UNT Oral Tab let Calcium + D3 01/25/2021 12:00:00 AM EDT active [facility] ([facility]) CARBOplatin (PARAPLATIN) 291 mg in sodium chloride 0.9 % robin mo infusion 01/20/2021 11:15:00 AM EDT 290.7 mg Intravenous c ompleted 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
Hazardous drug. Follow precautions. Dispose of properly.
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
Irritant
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
Give 30 minutes prior to chemo.
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
Give prior to chemotherapy.
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
Give prior to chemotherapy
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
Hazardous drug. Follow precautions. Dispose of properly.
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
Irritant
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
Give prior to chemotherapy.
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
Give 30 minutes prior to chemo.
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
Give prior to chemotherapy
[facility] Malignant neoplasm of anterior wall of u [...]
Hazardous drug. Follow precautions. Dispose of properly.
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
Irritant
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
Give 30 minutes prior to chemo.
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
Give prior to chemotherapy.
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
Give prior to chemotherapy
[facility] Malignant neoplasm of anterior wall of u rinary bladder Medication administered onsite Nitroglycerin 0.4 MG Sublingual Tablet N itroglycerin 0.4 MG Sublingual Tablet Sublingual (NITROSTAT) Nitroglycerin 0.4 MG Sublingual Tablet S ublingual (NITROSTAT) 12/23/2020 12:00:00 AM EDT 0.4 mg Sublingual ac tive Place 1 tablet under the tongue every 5 (five) minutes as needed for Chest pain [facility] 0.4 mg 12/23/2020 12:00:00 AM EDT tablet, [...]
Hazardous drug. Follow precautions. Dispose of properly.
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
Irritant
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
Give prior to chemotherapy
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
Give prior to chemotherapy.
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
Give 30 minutes prior to chemo.
[facility] Malignant neoplasm of anterior wall of u [...]
Hazardous drug. Follow precautions. Dispose of properly.
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
Irritant
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
Give 30 minutes prior to chemo.
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
Give prior to chemotherapy.
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
Give prior to chemotherapy
[facility] Malignant neoplasm of anterior wall of u [...]
Hazardous drug. Follow precautions. Dispose of properly.
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
Irritant
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
Give prior to chemotherapy.
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
Give 30 minutes prior to chemo.
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
Give prior to chemotherapy
[facility] Malignant neoplasm of anterior wall of u [...]
Hazardous drug. Follow precautions. Dispose of properly.
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
Irritant
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
Give 30 minutes prior to chemo.
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
Give prior to chemotherapy.
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
Give prior to chemotherapy
[facility] Malignant neoplasm of anterior wall of u rinary bladder Medication administered onsite alteplase (CATHFLO) injection 2 mg [id number] 10/26/2020 08:45:00 AM EDT 2 mg Intracatheter completed 2 mg, Intra catheter, Once, On Sat10/26/20 at 0845, For 1 dose
To be instilled by PICC team or IR nurse only for at least 30 minutes
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
Hazardous drug. Follow precautions. Dispose of properly.
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
Irritant
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
Give 30 minutes prior to chemo.
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
Give prior to chemotherapy.
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
Give prior to chemotherapy
[facility] Malignant neoplasm of anterior wall of u [...]
Hazardous drug. Follow precautions. Dispose of properly.
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
Irritant
[facility] Malignant neoplasm of anterior wall of u rinary bladder Medication administered onsite sodium chloride 0.9 % bolus 1,000 mL [id number] 09/06/2020 09:30: 00 AM EDT 1000 mL Intravenous completed Malignant neopl asm of anterior wall of urinary bladder 1,000 mL, Intravenous, Once, 09/06/20 at 0930, For 1 dose
667 cc/hr
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
Give prior to chemotherapy
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
Give 30 minutes prior to chemo.
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
Give prior to chemotherapy.
[facility] Malignant neoplasm of anterior wall of u [...]
Hazardous drug. Follow precautions. Dispose of properly.
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
Irritant
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
Give 30 minutes prior to chemo.
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
Give prior to chemotherapy
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
Give prior to chemotherapy.
[facility] Malignant neoplasm of anterior wall of u rinary bladder Medication administered onsite sodium chloride 0.9 % bolus 1,000 mL [id number] 08/24/2020 11:15: 00 AM EDT 1000 mL Intravenous completed Malignant neopl asm of anterior wall of urinary bladder 1,000 mL, Intravenous, at 66 7 mL/hr, Once, Sat08/24/20 at 1115, For 1 dose
667 cc/hr
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 Take 1 tablet by mouth every 8 (eight) hours as needed for Nausea or Vomiting [facility] Malignant neoplasm of anterior wall of u rinary bladder Prochlorperazine 10 MG Oral Tablet Proch lorperazine Maleate 10 MG Oral Tablet (COMPAZINE) Prochlorperazine Maleate 10 MG Oral Tablet (COMPAZINE) 08/24/2020 12:00:00 AM EDT 10 mg Oral active Mireya gnant neoplasm of anterior wall of urinary bladder Take 1 tablet by mouth every 6 (six) hours as needed (Nausea/Vomiting) [facility] Malignant neoplasm of anterior wall of u rinary bladder Baclofen 10 MG Oral Tablet Baclofen 10 MG Oral Tablet (LIORESAL) Baclofen 10 MG Oral Tablet (LIORESAL) 08/24/2020 12:00:00 AM EDT 10 mg Oral aborted Take 1 tablet by mouth Three times daily PRN for hiccups [facility] Baclofen 10 MG Oral Tablet Baclofen 10 MG Oral Tablet (LIORESAL) Baclofen 10 MG Oral Tablet (LIORESAL) 08/24/2020 12:00:00 AM EDT 10 mg Oral completed Take 1 tablet by mouth Three times daily PRN for hiccu ps [facility] 100 mg 06/23/2020 12:00:00 AM EST tablet 6 TAKE ONE TABLET BY MOUTH ONCE DAILY NEEDED TAKE ONE TABLET BY MOUTH ONCE DAILY NEEDED SOLD: 06/26/19 [facility] sildenafil 100 MG Oral Tablet [Viagra] Viagra 100 MG Viagra 100 MG 06/21/2020 12:00:00 AM EST 1.0 {tablet_as_needed} active Viagra 100 MG eC1 ([facility]) sodium chloride 0.9 % 50 mL with alliance [id number] pembrolizumab 200 mg 06/01/2020 03:00:00 PM EST Intravenous c ompleted 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
Infuse via 0.2 micron filter. Line primed with drug
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
Infuse via 0.2 micron filter. Line primed with drug. Set pump vol at 25 ml, then flush with NS at same rate to empty line.
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
Infuse via 0.2 micron filter. Line primed with drug
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
Infuse via 0.2 micron filter. Line primed with drug. No kaitlyn or adapters
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
Infuse via 0.2 micron filter. Line primed with drug
[facility] Malignant neoplasm of anterior wall of u [...] as needed for pain. MDD: 400 mg [facility] gabapentin 300 MG Oral Capsule Gabapentin 300 MG Oral Capsule (NEURONTIN) Gabapentin 300 MG Oral Capsule (NEURONTIN) 04/08/2019 12:00:00 AM EST 300 mg Oral aborted Take 1 capsule by butch fleming Three times daily for 5 days [facility] Nitroglycerin 0.4 MG Sublingual Tablet n itroglycerin (NITROSTAT) 0.4 MG SL tablet nitroglycerin (NITROSTAT) 0.4 MG SL tablet 0.[address] 0.4 mg under t he tongue every 5 (five) minutes as needed for Chest pain [facility] Insurance Providers Payer name Policy type / Coverage type Policy ID Covered constitution party ID Covered constitution party's relationship to gamboa Policy [place] Plan Information [employer] [employer] MEDICAID [id number] S [id number] [employer] MEDICAID [id number] Shari 7 [id number] [facility] CARE COMMERCIAL [id number] S [id number] [facility] MEDICAID [id number] S [id number] [facility] [id number] Self [id number] MED[facility] [id number] SP [id number] 200 [facility] [id number] SP 7 [id number] [facility] [id number] SP [id number] ANSI-Commercial [id number] ANSI-Commercial [id number] ANSI-Commercial [id number] ANSI-Commercial [id number] ANSI-Commercial [id number] ANSI-Commercial [id number] [place] - Medicaid [facility] ([facility] [facility] [id number] Self [id number] [place] - Medicaid [facility] (O) [facility] [id number] Self [id number] ANSI-Commercial [id number] [facility] MEDICAID [id number] S [id number] [facility] MEDICAID MCD HMO [id number] S [id number] SELF PAY SP UNAVAILABLE S UNAVAILA BLE [place] Medicaid [facility] (O) [facility] [id number] Self [id number] [place] Medicaid [facility] ([facility]) [facility] [id number] Self [id number] SELF PAY ONLY [id number] SP [id number] SELF PAY UNAVAILABLE SP UNAVAILA BLE [facility] FIN[employer]CIAL PF UNAVAILABLE S UNAVAILABLE [facility] MEDICAID [id number] S [id number] [place] [id number] S [id number] [facility] [id number] SP [id number] 200 [facility] [place] [id number] SP [id number] ANSI-Commercial [id number] ANSI-Commercial [id number] ANSI-Commercial [id number] Problems, Conditions, and Diagnoses Code Display Name Description Problem Type Effective Dates Data Source(s) R06.02 Shortness of breath Shortness of breath Diagnosis 1 06/21/2020 12:00:00 AM [facility] 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 MALIGNANT NEOPLASM OF ANTERIOR WALL OF B Diagnosis 04/18/2021 12:08:00 PM [facility] Z01.20 Encounter for dental examination and wally aning without abnormal findings Encounter for dental examination and cleaning without abnormal findings Diagnosis 09/22/2020 10:54:27 AM [facility] Z51.5 Encounter for palliative care Encounter for palliative care Diagnosis 09/21/2020 12:02:54 PM [facility] fol fol Diagnosis 08/26/2020 10:54:38 AM ED [facility] C67.9 Malignant tumor of urinary bladder Malignant elise or of urinary bladder Problem 01/25/2021 12:00:00 AM EDT [facility] ([facility]) H11.002 Pterygium Pterygium Problem 01/25/2021 12:00:00 AM ED T [facility] ([facility]) I25.10 Coronary arteriosclerosis Coronary arteriosclerosis Pr oblem 01/25/2021 12:00:00 AM EDT [facility] ([facility]) Z90.6 History of total cystectomy History of total cystectom y Problem 01/25/2021 12:00:00 AM EDT [facility] ([facility]) 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 Problem 06/21/2020 12:00:00 AM EST eCW1 ([facility]) Surgeries/Procedures Procedure Description Date Indications Data Source(s) XR CHEST FRONTAL AND LATERAL 90549 <td>XR CHEST FRONTA L AND LATERAL 10282</td><td>STAT</td><td>04/21/2021 12:21 PM EST</td><td> Shortness of breath</td><td> </td> 04/21/2021 12:21:00 PM EST Shortness of breath [facility] Shortness of breath ECG ROUTINE ECG W/LEAST 12 LDS W/I&R 01/25/2021 12:00: 00 AM EDT [facility] ([facility]) INITIAL PREVENTIVE MEDICINE NEW PATIENT [id number] 01/25 12:00:00 AM EDT [facility] ([facility]) BLOOD COUNT COMPLETE AUTO&AUTO DIFRNTL WBC COUNT <td>C BC AND DIFFERENTIAL</td><td>Routine</td><td>01/20/2021 9:10 AM EDT</td><td> Malignant neoplasm of anterior wall of urinary bladder</td><td> </td> 01/20/2021 09:10:00 AM EDT Malignant 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 [facility] Malignant neoplasm of anterior wall of u rinary bladder COMPREHENSIVE METABOLIC PANEL <td>COMPREHENSIVE METABO LIC PANEL</td><td>STAT</td><td>01/20/2021 9:10 AM EDT</td><td> Malignant neoplasm of anterior wall of urinary bladder</td><td> </td> 01/20/2021 09:10:00 AM EDT Malignant 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 [facility] Malignant neoplasm of anterior wall of u rinary bladder BLOOD COUNT COMPLETE AUTO&AUTO DIFRNTL WBC COUNT <td>C BC AND DIFFERENTIAL</td><td>Routine</td><td>01/06/2021 9:10 AM EDT</td><td> Malignant neoplasm of anterior wall of urinary bladder</td><td> </td> 01/06/2021 09:10:00 AM EDT Malignant neoplasm of anterior wall of urinary bladder [facility] Malignant neoplasm of anterior wall of u rinary bladder BLOOD TYPING ABO <td>TYPE AND SCREEN</td><td> Routine</td><td>01/06/2021 9:10 AM EDT</td><td></td><td> </td> 01/06/2021 09:10:00 AM EDT [facility] COMPREHENSIVE METABOLIC PANEL <td>COMPREHENSIVE METABO LIC PANEL</td><td>STAT</td><td>01/06/2021 9:10 AM EDT</td><td> Malignant neoplasm of anterior wall of urinary bladder</td><td> </td> 01/06/2021 09:10:00 AM EDT Malignant neoplasm of anterior wall of urinary bladder [facility] Malignant neoplasm of anterior wall of u rinary bladder BLOOD COUNT COMPLETE AUTO&AUTO DIFRNTL WBC COUNT <td>C BC AND DIFFERENTIAL</td><td>Routine</td><td>12/23/2020 8:15 AM EDT</td><td> Malignant neoplasm of anterior wall of urinary bladder</td><td> </td> 12/23/2020 08:15:00 AM EDT Malignant neoplasm of anterior wall of urinary bladder [facility] Malignant neoplasm of anterior wall of u rinary bladder COMPREHENSIVE METABOLIC PANEL <td>COMPREHENSIVE METABO LIC PANEL</td><td>STAT</td><td>12/23/2020 8:15 AM EDT</td><td> Malignant neoplasm of anterior wall of urinary bladder</td><td> </td> 12/23/2020 08:15:00 AM EDT Malignant neoplasm of anterior wall of urinary bladder [facility] Malignant neoplasm of anterior wall of u rinary bladder BLOOD COUNT COMPLETE AUTO&AUTO DIFRNTL WBC COUNT <td>C BC AND DIFFERENTIAL</td><td>Routine</td><td>2020 8:23 AM EDT</td><td> Malignant neoplasm of anterior wall of urinary bladder</td><td> </td> 2020 08:23:00 AM EDT Malignant neoplasm of anterior wall of urinary bladder [facility] Malignant neoplasm of anterior wall of u rinary bladder COMPREHENSIVE METABOLIC PANEL <td>COMPREHENSIVE METABO LIC PANEL</td><td>STAT</td><td>2020 8:23 AM EDT</td><td> Malignant neoplasm of anterior wall of urinary bladder</td><td> </td> 2020 08:23:00 AM EDT Malignant neoplasm of anterior wall of urinary bladder [facility] Malignant neoplasm of anterior wall of u rinary bladder BLOOD COUNT COMPLETE AUTO&AUTO DIFRNTL WBC COUNT <td>C BC AND DIFFERENTIAL</td><td>Routine</td><td>11/23/2020 8:30 AM EDT</td><td> Malignant neoplasm of anterior wall of urinary bladder</td><td> </td> 11/23/2020 08:30:00 AM EDT Malignant neoplasm of anterior wall of urinary bladder [facility] Malignant neoplasm of anterior wall of u rinary bladder COMPREHENSIVE METABOLIC PANEL <td>COMPREHENSIVE METABO LIC PANEL</td><td>STAT</td><td>11/23/2020 8:30 AM EDT</td><td> Malignant neoplasm of anterior wall of urinary bladder</td><td> </td> 11/23/2020 08:30:00 AM EDT Malignant neoplasm of anterior wall of urinary bladder [facility] Malignant neoplasm of anterior wall of u rinary bladder BLOOD COUNT COMPLETE AUTO&AUTO DIFRNTL WBC COUNT <td>C BC AND DIFFERENTIAL</td><td>Routine</td><td>11/09/2020 8:20 AM EDT</td><td> Malignant neoplasm of anterior wall of urinary bladder</td><td> </td> 11/09/2020 08:20:00 AM EDT Malignant neoplasm of anterior wall of urinary bladder [facility] Malignant neoplasm of anterior wall of u rinary bladder COMPREHENSIVE METABOLIC PANEL <td>COMPREHENSIVE METABO LIC PANEL</td><td>STAT</td><td>11/09/2020 8:20 AM EDT</td><td> Malignant neoplasm of anterior wall of urinary bladder</td><td> </td> 11/09/2020 08:20:00 AM EDT Malignant neoplasm of anterior wall of urinary bladder [facility] Malignant neoplasm of anterior wall of u rinary bladder BLOOD COUNT COMPLETE AUTO&AUTO DIFRNTL WBC COUNT <td>C BC AND DIFFERENTIAL</td><td>Routine</td><td>10/26/2020 8:15 AM EDT</td><td> Malignant neoplasm of anterior wall of urinary bladder</td><td> </td> 10/26/2020 08:15:00 AM EDT Malignant neoplasm of anterior wall of urinary bladder [facility] Malignant neoplasm of anterior wall of u rinary bladder COMPREHENSIVE METABOLIC PANEL <td>COMPREHENSIVE METABO LIC PANEL</td><td>STAT</td><td>10/26/2020 8:15 AM EDT</td><td> Malignant neoplasm of anterior wall of urinary bladder</td><td> </td> 10/26/2020 08:15:00 AM EDT Malignant neoplasm of anterior wall of urinary bladder [facility] Malignant neoplasm of anterior wall of u rinary bladder HI DENTAL PANORAMIC FILM <td>HI DENTAL PANORAMIC FILM</td><td>Routine</td><td>09/22/2020 11:00 AM EDT</td><td> Encounter for dental examination Malignant neoplasm of urinary bladder, unspecified site</td><td></td> 09/22/2020 11:00:00 AM EDT Malignant neoplasm of urinary bladder, u nspecified siteEncounter for dental examination [facility] Malignant neoplasm of urinary bladder, u nspecified site Encounter for dental examination HI DENTAL BITEWINGS FOUR FILMS <td>HI DENTAL BITEWINGS FOUR FILMS</td><td>Routine</td><td>09/22/2020 11:00 AM EDT</td><td> Encounter for dental examination Malignant neoplasm of urinary bladder, unspecified site</td><td></td> 09/22/2020 11:00:00 AM EDT Malignant neoplasm of urinary bladder, u nspecified siteEncounter for dental examination [facility] Malignant neoplasm of urinary bladder, u nspecified site Encounter for dental examination 27 HI INTRAORAL PERIAPICAL EA ADD <td>27 HI INTRAORAL PERIAPICAL EA ADD</td><td>Routine</td><td>09/22/2020 11:00 AM EDT</td><td> Encounter for dental examination Malignant neoplasm of urinary bladder, unspecified site</td><td></td> 09/22/2020 11:00:00 AM EDT Malignant neoplasm of urinary bladder, u nspecified siteEncounter for dental examination [facility] Malignant neoplasm of urinary bladder, u nspecified site Encounter for dental examination 25 HI INTRAORAL PERIAPICAL EA ADD <td>25 HI INTRAORAL PERIAPICAL EA ADD</td><td>Routine</td><td>09/22/2020 11:00 AM EDT</td><td> Encounter for dental examination Malignant neoplasm of urinary bladder, unspecified site</td><td></td> 09/22/2020 11:00:00 AM EDT Malignant neoplasm of urinary bladder, u nspecified siteEncounter for dental examination [facility] Malignant neoplasm of urinary bladder, u nspecified site Encounter for dental examination 11 HI INTRAORAL PERIAPICAL EA ADD <td>11 HI INTRAORAL PERIAPICAL EA ADD</td><td>Routine</td><td>09/22/2020 11:00 AM EDT</td><td> Encounter for dental examination Malignant neoplasm of urinary bladder, unspecified site</td><td></td> 09/22/2020 11:00:00 AM EDT Malignant neoplasm of urinary bladder, u nspecified siteEncounter for dental examination [facility] Malignant neoplasm of urinary bladder, u nspecified site Encounter for dental examination 7 HI INTRAORAL PERIAPICAL EA ADD <td>7 HI INTRAORAL PE RIAPICAL EA ADD</td><td>Routine</td><td>09/22/2020 11:00 AM EDT</td><td> Encounter for dental examination Malignant neoplasm of urinary bladder, unspecified site</td><td></td> 09/22/2020 11:00:00 AM EDT Malignant neoplasm of urinary bladder, u nspecified siteEncounter for dental examination [facility] Malignant neoplasm of urinary bladder, u nspecified site Encounter for dental examination 23 HI INTRAORAL PERIAPICAL FIRST F <td>23 HI INTRAORAL PERIAPICAL FIRST F</td><td>Routine</td><td>09/22/2020 11:00 AM EDT</td><td> Encounter for dental examination Malignant neoplasm of urinary bladder, unspecified site</td><td></td> 09/22/2020 11:00:00 AM EDT Malignant neoplasm of urinary bladder, u nspecified siteEncounter for dental examination [facility] Malignant neoplasm of urinary bladder, u nspecified site Encounter for dental examination 8 HI INTRAORAL PERIAPICAL FIRST F <td>8 HI INTRAORAL P ERIAPICAL FIRST F</td><td>Routine</td><td>09/22/2020 11:00 AM EDT</td><td> Encounter for dental examination Malignant neoplasm of urinary bladder, unspecified site</td><td></td> 09/22/2020 11:00:00 AM EDT Malignant neoplasm of urinary bladder, u nspecified siteEncounter for dental examination [facility] Malignant neoplasm of urinary bladder, u nspecified site Encounter for dental examination HI COMPREHENSVE ORAL EVALUATION <td>HI COMPREHENSVE OR AL EVALUATION</td><td>Routine</td><td>09/22/2020 11:00 AM EDT</td><td> Encounter for dental examination Malignant neoplasm of urinary bladder, unspecified site</td><td></td> 09/22/2020 11:00:00 AM EDT Malignant neoplasm of urinary bladder, u nspecified siteEncounter for dental examination [facility] Malignant neoplasm of urinary bladder, u nspecified site Encounter for dental examination 15 PORCELAIN CROWN (GENERIC) <td>15 PORCELAIN CROWN (GENERIC)</td><td>Routine</td><td>09/22/2020 12:00 AM EDT</td><td></td><td></td> 09/22/2020 12:00:00 AM EDT [facility] 15 ROOT CANAL (GENERIC) <td>15 ROOT CANAL (GENERIC)</td><td>Routine</td><td>09/22/2020 12:00 AM EDT</td><td></td><td></td> 09/22/2020 12:00:00 AM EDT [facility] BLOOD COUNT COMPLETE AUTO&AUTO DIFRNTL WBC COUNT <td>C BC AND DIFFERENTIAL</td><td>Routine</td><td>09/21/2020 8:35 AM EDT</td><td> Malignant neoplasm of anterior wall of urinary bladder</td><td> </td> 09/21/2020 08:35:00 AM EDT Malignant neoplasm of anterior wall of urinary bladder [facility] Malignant neoplasm of anterior wall of u rinary bladder COMPREHENSIVE METABOLIC PANEL <td>COMPREHENSIVE METABO LIC PANEL</td><td>STAT</td><td>09/21/2020 8:35 AM EDT</td><td> Malignant neoplasm of anterior wall of urinary bladder</td><td> </td> 09/21/2020 08:35:00 AM EDT Malignant neoplasm of anterior wall of urinary bladder [facility] Malignant neoplasm of anterior wall of u rinary bladder BLOOD COUNT COMPLETE AUTO&AUTO DIFRNTL WBC COUNT <td>C BC AND DIFFERENTIAL</td><td>Routine</td><td>09/06/2020 8:12 AM EDT</td><td> Malignant neoplasm of anterior wall of urinary bladder</td><td> </td> 09/06/2020 08:12:00 AM EDT Malignant neoplasm of anterior wall of urinary bladder [facility] Malignant neoplasm of anterior wall of u rinary bladder COMPREHENSIVE METABOLIC PANEL <td>COMPREHENSIVE METABO LIC PANEL</td><td>STAT</td><td>09/06/2020 8:12 AM EDT</td><td> Malignant neoplasm of anterior wall of urinary bladder</td><td> </td> 09/06/2020 08:12:00 AM EDT Malignant neoplasm of anterior wall of urinary bladder [facility] Malignant neoplasm of anterior wall of u rinary bladder BLOOD COUNT COMPLETE AUTO&AUTO DIFRNTL WBC COUNT <td>C BC AND DIFFERENTIAL</td><td>Routine</td><td>08/24/2020 8:50 AM EDT</td><td> Malignant neoplasm of anterior wall of urinary bladder</td><td> </td> 08/24/2020 08:50:00 AM EDT Malignant neoplasm of anterior wall of urinary bladder [facility] Malignant neoplasm of anterior wall of u rinary bladder COMPREHENSIVE METABOLIC PANEL <td>COMPREHENSIVE METABO LIC PANEL</td><td>STAT</td><td>08/24/2020 8:50 AM EDT</td><td> Malignant neoplasm of anterior wall of urinary bladder</td><td> </td> 08/24/2020 08:50:00 AM EDT Malignant neoplasm of anterior wall of urinary bladder [facility] Malignant neoplasm of anterior wall of u rinary bladder BLOOD COUNT COMPLETE AUTO&AUTO DIFRNTL WBC COUNT <td>C BC AND DIFFERENTIAL</td><td>STAT</td><td>06/01/2020 1:57 PM EST</td><td> Malignant neoplasm of anterior wall of urinary bladder</td><td> </td> 06/01/2020 01:57:00 PM EST Malignant neoplasm of anterior wall of urinary bladder [facility] Malignant neoplasm of anterior wall of u rinary bladder THYROID STIMULATING HORMONE TSH <td>TSH</td><td>Routin e</td><td>06/01/2020 1:57 PM EST</td><td> Malignant neoplasm of anterior wall of urinary bladder</td><td> </td> 06/01/2020 01:57:00 PM EST Malignant neoplasm of anterior wall of urinary bladder [facility] Malignant neoplasm of anterior wall of u rinary bladder THYROXINE FREE <td>T4, FREE</td><td>Routine </td><td>06/01/2020 1:57 PM EST</td><td> Malignant neoplasm of anterior wall of urinary bladder</td><td> </td> 06/01/2020 01:57:00 PM EST Malignant neoplasm of anterior wall of urinary bladder [facility] Malignant neoplasm of anterior wall of u rinary bladder LIPASE <td>LIPASE LEVEL</td><td>STA T</td><td>06/01/2020 1:57 PM EST</td><td> Malignant neoplasm of anterior wall of urinary bladder</td><td> </td> 06/01/2020 01:57:00 PM EST Malignant neoplasm of anterior wall of urinary bladder [facility] Malignant neoplasm of anterior wall of u rinary bladder AMYLASE <td>AMYLASE LEVEL</td><td>ST AT</td><td>06/01/2020 1:57 PM EST</td><td> Malignant neoplasm of anterior wall of urinary bladder</td><td> </td> 06/01/2020 01:57:00 PM EST Malignant neoplasm of anterior wall of urinary bladder [facility] Malignant neoplasm of anterior wall of u rinary bladder COMPREHENSIVE METABOLIC PANEL <td>COMPREHENSIVE METABO LIC PANEL</td><td>STAT</td><td>06/01/2020 1:57 PM EST</td><td> Malignant neoplasm of anterior wall of urinary bladder</td><td> </td> 06/01/2020 01:57:00 PM EST Malignant neoplasm of anterior wall of urinary bladder [facility] Malignant neoplasm of anterior wall of u rinary bladder BLOOD COUNT COMPLETE AUTO&AUTO DIFRNTL WBC COUNT <td>C BC AND DIFFERENTIAL</td><td>STAT</td><td>05/13/2020 1:10 PM EST</td><td> Malignant neoplasm of anterior wall of urinary bladder</td><td> </td> 05/13/2020 01:10:00 PM EST Malignant neoplasm of anterior wall of urinary bladder [facility] Malignant neoplasm of anterior wall of u rinary bladder THYROID STIMULATING HORMONE TSH <td>TSH</td><td>Routin e</td><td>05/13/2020 1:10 PM EST</td><td> Malignant neoplasm of anterior wall of urinary bladder</td><td> </td> 05/13/2020 01:10:00 PM EST Malignant neoplasm of anterior wall of urinary bladder [facility] Malignant neoplasm of anterior wall of u rinary bladder THYROXINE FREE <td>T4, FREE</td><td>Routine </td><td>05/13/2020 1:10 PM EST</td><td> Malignant neoplasm of anterior wall of urinary bladder</td><td> </td> 05/13/2020 01:10:00 PM EST Malignant neoplasm of anterior wall of urinary bladder [facility] Malignant neoplasm of anterior wall of u rinary bladder LIPASE <td>LIPASE LEVEL</td><td>STA T</td><td>05/13/2020 1:10 PM EST</td><td> Malignant neoplasm of anterior wall of urinary bladder</td><td> </td> 05/13/2020 01:10:00 PM EST Malignant neoplasm of anterior wall of urinary bladder [facility] Malignant neoplasm of anterior wall of u rinary bladder AMYLASE <td>AMYLASE LEVEL</td><td>ST AT</td><td>05/13/2020 1:10 PM EST</td><td> Malignant neoplasm of anterior wall of urinary bladder</td><td> </td> 05/13/2020 01:10:00 PM EST Malignant neoplasm of anterior wall of urinary bladder [facility] Malignant neoplasm of anterior wall of u rinary bladder COMPREHENSIVE METABOLIC PANEL <td>COMPREHENSIVE METABO LIC PANEL</td><td>STAT</td><td>05/13/2020 1:10 PM EST</td><td> Malignant neoplasm of anterior wall of urinary bladder</td><td> </td> 05/13/2020 01:10:00 PM EST Malignant neoplasm of anterior wall of urinary bladder [facility] Malignant neoplasm of anterior wall of u rinary bladder BLOOD COUNT COMPLETE AUTO&AUTO DIFRNTL WBC COUNT <td>C BC AND DIFFERENTIAL</td><td>STAT</td><td>04/22/2020 1:20 PM EST</td><td> Malignant neoplasm of anterior wall of urinary bladder</td><td> </td> 04/22/2020 01:20:00 PM EST Malignant neoplasm of anterior wall of urinary bladder [facility] Malignant neoplasm of anterior wall of u rinary bladder THYROID STIMULATING HORMONE TSH <td>TSH</td><td>Routin e</td><td>04/22/2020 1:20 PM EST</td><td> Malignant neoplasm of anterior wall of urinary bladder</td><td> </td> 04/22/2020 01:20:00 PM EST Malignant neoplasm of anterior wall of urinary bladder [facility] Malignant neoplasm of anterior wall of u rinary bladder THYROXINE FREE <td>T4, FREE</td><td>Routine </td><td>04/22/2020 1:20 PM EST</td><td> Malignant neoplasm of anterior wall of urinary bladder</td><td> </td> 04/22/2020 01:20:00 PM EST Malignant neoplasm of anterior wall of urinary bladder [facility] Malignant neoplasm of anterior wall of u rinary bladder LIPASE <td>LIPASE LEVEL</td><td>STA T</td><td>04/22/2020 1:20 PM EST</td><td> Malignant neoplasm of anterior wall of urinary bladder</td><td> </td> 04/22/2020 01:20:00 PM EST Malignant neoplasm of anterior wall of urinary bladder [facility] Malignant neoplasm of anterior wall of u rinary bladder AMYLASE <td>AMYLASE LEVEL</td><td>ST AT</td><td>04/22/2020 1:20 PM EST</td><td> Malignant neoplasm of anterior wall of urinary bladder</td><td> </td> 04/22/2020 01:20:00 PM EST Malignant neoplasm of anterior wall of urinary bladder [facility] Malignant neoplasm of anterior wall of u rinary bladder COMPREHENSIVE METABOLIC PANEL <td>COMPREHENSIVE METABO LIC PANEL</td><td>STAT</td><td>04/22/2020 1:20 PM EST</td><td> Malignant neoplasm of anterior wall of urinary bladder</td><td> </td> 04/22/2020 01:20:00 PM EST Malignant neoplasm of anterior wall of urinary bladder [facility] Malignant neoplasm of anterior wall of u rinary bladder OPERATIVE AND PROCEDURE NOTE <td>OPERATIVE AND PROCEDU RE NOTE</td><td></td><td>04/08/2020 3:23 PM EST</td><td></td><td></td> 04/08/2020 03:23:00 PM EST [facility] BLOOD COUNT COMPLETE AUTO&AUTO DIFRNTL WBC COUNT <td>C BC AND DIFFERENTIAL</td><td>Routine</td><td>04/01/2020 12:46 PM EDT</td><td> Malignant neoplasm of anterior wall of urinary bladder</td><td> </td> 04/01/2020 12:46:00 PM EDT Malignant neoplasm of anterior wall of urinary bladder [facility] Malignant neoplasm of anterior wall of u rinary bladder PROSTATE SPECIFIC ANTIGEN TOTAL <td>PSA, TOTAL AND FREE</td><td>STAT</td><td>04/01/2020 12:46 PM EDT</td><td> Malignant neoplasm of anterior wall of urinary bladder</td><td> </td> 04/01/2020 12:46:00 PM EDT Malignant neoplasm of anterior wall of urinary bladder [facility] Malignant neoplasm of anterior wall of u rinary bladder THYROID STIMULATING HORMONE TSH <td>TSH</td><td>Routin e</td><td>04/01/2020 12:46 PM EDT</td><td> Malignant neoplasm of anterior wall of urinary bladder</td><td> </td> 04/01/2020 12:46:00 PM EDT Malignant neoplasm of anterior wall of urinary bladder [facility] Malignant neoplasm of anterior wall of u rinary bladder THYROXINE FREE <td>T4, FREE</td><td>Routine </td><td>04/01/2020 12:46 PM EDT</td><td> Malignant neoplasm of anterior wall of urinary bladder</td><td> </td> 04/01/2020 12:46:00 PM EDT Malignant neoplasm of anterior wall of urinary bladder [facility] Malignant neoplasm of anterior wall of u rinary bladder LIPASE <td>LIPASE LEVEL</td><td>STA T</td><td>04/01/2020 12:46 PM EDT</td><td> Malignant neoplasm of anterior wall of urinary bladder</td><td> </td> 04/01/2020 12:46:00 PM EDT Malignant neoplasm of anterior wall of urinary bladder [facility] Malignant neoplasm of anterior wall of u rinary bladder AMYLASE <td>AMYLASE LEVEL</td><td>ST AT</td><td>04/01/2020 12:46 PM EDT</td><td> Malignant neoplasm of anterior wall of urinary bladder</td><td> </td> 04/01/2020 12:46:00 PM EDT Malignant neoplasm of anterior wall of urinary bladder [facility] Malignant neoplasm of anterior wall of u rinary bladder COMPREHENSIVE METABOLIC PANEL <td>COMPREHENSIVE METABO LIC PANEL</td><td>Routine</td><td>04/01/2020 12:46 PM EDT</td><td> Malignant neoplasm of anterior wall of urinary bladder</td><td> </td> 04/01/2020 12:46:00 PM EDT Malignant neoplasm of anterior wall of urinary bladder [facility] Malignant neoplasm of anterior wall of u rinary bladder BLOOD COUNT COMPLETE AUTO&AUTO DIFRNTL WBC COUNT <td>C BC AND DIFFERENTIAL</td><td>STAT</td><td>03/11/2020 1:00 PM EDT</td><td> Malignant neoplasm of anterior wall of urinary bladder</td><td> </td> 03/11/2020 01:00:00 PM EDT Malignant neoplasm of anterior wall of urinary bladder [facility] Malignant neoplasm of anterior wall of u rinary bladder THYROID STIMULATING HORMONE TSH <td>TSH</td><td>Routin e</td><td>03/11/2020 1:00 PM EDT</td><td> Malignant neoplasm of anterior wall of urinary bladder</td><td> </td> 03/11/2020 01:00:00 PM EDT Malignant neoplasm of anterior wall of urinary bladder [facility] Malignant neoplasm of anterior wall of u rinary bladder THYROXINE FREE <td>T4, FREE</td><td>Routine </td><td>03/11/2020 1:00 PM EDT</td><td> Malignant neoplasm of anterior wall of urinary bladder</td><td> </td> 03/11/2020 01:00:00 PM EDT Malignant neoplasm of anterior wall of urinary bladder [facility] Malignant neoplasm of anterior wall of u rinary bladder LIPASE <td>LIPASE LEVEL</td><td>STA T</td><td>03/11/2020 1:00 PM EDT</td><td> Malignant neoplasm of anterior wall of urinary bladder</td><td> </td> 03/11/2020 01:00:00 PM EDT Malignant neoplasm of anterior wall of urinary bladder [facility] Malignant neoplasm of anterior wall of u rinary bladder AMYLASE <td>AMYLASE LEVEL</td><td>ST AT</td><td>03/11/2020 1:00 PM EDT</td><td> Malignant neoplasm of anterior wall of urinary bladder</td><td> </td> 03/11/2020 01:00:00 PM EDT Malignant neoplasm of anterior wall of urinary bladder [facility] Malignant neoplasm of anterior wall of u rinary bladder COMPREHENSIVE METABOLIC PANEL <td>COMPREHENSIVE METABO LIC PANEL</td><td>STAT</td><td>03/11/2020 1:00 PM EDT</td><td> Malignant neoplasm of anterior wall of urinary bladder</td><td> </td> 03/11/2020 01:00:00 PM EDT Malignant neoplasm of anterior wall of urinary bladder [facility] Malignant neoplasm of anterior wall of u rinary bladder Results ID Date Data Source [id number] 04/21/2021 03:30:06 PM [facility] XR CHEST FRONTAL AND LATERAL [id number] RESULTInterpreted by:Robb Veronica MDPROCEDURE INFORMATION: Exam: XR [...] rce(s) Supporting Document(s) ID Date Data Source [id number] 04/21/2021 11:34:21 AM [facility] Service Cmnt XXX-Imp : NoneRespiratory P CR Panel : PCR ResultsMicroorganism XXX Cult : This test does NOT include the virus that causes COVID-19. See separate test for this result.HAdV DNA QI ANNALISA+non-probe : Not DetectedHCoV [id number] Nph QI ANNALISA+non-probe : Not DetectedHCoV [id number] Nph QI ANNALISA+non-probe : Not [id number] RNA Nph QI ANNALISA+non-probe : Not [id number] RNA Upper resp QI ANNALISA+probe : Not [...] rce(s) Supporting Document(s) ID Date Data Source [id number] 04/21/2021 08:47:07 AM [facility] Name Value Range Interpretation Code Description Data Irish rce(s) Supporting Document(s) Leukocytes [#/volume] in Blood by Automated count 17.2 10*3/uL 4-10 H [facility] Erythrocytes [#/volume] in Blood by Automated count 3.83 10*6/uL 4.6- 6.1 L [facility] Hemoglobin [Mass/volume] in Blood 12.0 g/dL 13.5-18 L [facility] Hematocrit [Volume Fraction] of Blood by Automated count 37.1 % 4 1-53 L [facility] Erythrocyte mean corpuscular volume [Entitic volume] by Auto mated count 96.8 fL 80-96 H [facility] Erythrocyte mean corpuscular hemoglobin [Entitic mass] by Automated count 31.4 pg 27-33 [facility] Erythrocyte mean corpuscular hemoglobin concentration [Mass/volume] by Automated count 32.4 g/dL 32.0-36.0 [facility] E[facility]th[facility] distribution width [Ratio] by Automated count 16.7 % 11.5-14.5 H [facility] Platelets [#/volume] in Blood by Automated count 159 10*3/uL 150-400 [facility] Differential cell count method - Blood [facility] Neutrophils/100 leukocytes in Blood by Automated count 87 % [facility] Lymphocytes/100 leukocytes in Blood by Automated count 3 % [facility] Monocytes/100 leukocytes in Blood by Automated count 8 % [facility] Basophils/100 leukocytes in Blood by Automated count 1 % [facility] Neutrophils [#/volume] in Blood by Automated count 14.96 10*3/uL 1.8- 7.0 H [facility] Lymphocytes [#/volume] in Blood by Automated count 0.52 10*3/uL 1.2-4 .0 L [facility] Monocytes [#/volume] in Blood by Automated count 1.38 10*3/uL 0-0.8 H [facility] Basophils [#/volume] in Blood by Automated count 0.17 10*3/uL 0-0.2 [facility] Myelocytes/100 leukocytes in Blood by Manual count 1 % [facility] Myelocytes [#/volume] in Blood by Manual count 0.17 10*3/uL 0-0 H [facility] ID Date Data Source [id number] 04/21/2021 09:03:29 AM [facility] Name Value Range Interpretation Code Description Data Irish rce(s) Supporting Document(s) Albumin [Mass/volume] in Serum or Plasma by Bromocresol green (BCG) dye binding method 3.9 g/dL 3.5-5.2 [facility] Bilirubin.total [Mass/volume] in Serum or Plasma 0.4 mg/dL <1.2 [facility] Calcium [Mass/volume] in Serum or Plasma 9.1 mg/dL 8.6-10.0 [facility] Chloride [Moles/volume] in Serum or Plasma 100 mmol/L 98-107 [facility] Creatinine [Mass/volume] in Serum or Plasma 1.41 mg/dL 0.70-1.20 H [facility] Glucose [Mass/volume] in Serum or Plasma 128 mg/dL 70-140 [facility] Alkaline phosphatase [Enzymatic activity/volume] in Serum or Plasma 226 U/L 40-129 H [facility] Potassium [Moles/volume] in Serum or Plasma 4.4 mmol/L 3.4-5.1 [facility] Protein [Mass/volume] in Serum or Plasma 7.1 g/dL 6.4-8.3 [facility] Sodium [Moles/volume] in Serum or Plasma 137 mmol/L 136-145 [facility] Aspartate aminotransferase [Enzymatic activity/volume] in Serum or Plasma 46 U/L <40 [facility] Urea nitrogen [Mass/volume] in Serum or Plasma 24 mg/dL 6-20 H [facility] Osmolality of Serum or Plasma by calculation 289 mosm/kg 275-300 [facility] Creatinine/Urea nitrogen [Mass Ratio] in Serum or Plasma 17 [facility] Bicarbonate [Moles/volume] in Serum 18 mmol/L 22-29 L [facility] Alanine aminotransferase [Enzymatic activity/volume] in Seru m or Plasma 35 U/L <41 [facility] Anion gap 3 in Serum or Plasma 19 mmol/L 8-15 H [facility] Glomerular filtration rate/1.73 sq M pre dicted among non-blacks [Volume Rate/Area] in Serum or Plasma by Creatinine-based formula (MDRD) 55 mL/min/1.73m2 >60 L [facility] Glomerular filtration rate/1.73 sq M pre dicted among blacks [Volume Rate/Area] in Serum or Plasma by Creatinine-based formula (MDRD) 64 mL/min/1.73m2 >60 [facility] ID Date Data Source [id number] 04/21/2021 09:03:29 AM [facility] Value Range Interpretation Code Description Data Irish rce(s) Supporting Document(s) Thyrotropin [Units/volume] in Serum or Plasma 4.080 u[IU]/mL 0.270-4. 200 [facility] ID Date Data Source [id number] 04/21/2021 09:38:20 AM [facility] Value Range Interpretation Code Description Data Irish rce(s) Supporting Document(s) C reactive protein [Mass/volume] in Serum or Plasma 109.3 mg/L <8.0 H [facility] ID Date Data Source [id number] 04/21/2021 10:11:00 AM [facility] Value Range Interpretation Code Description Data Irish rce(s) Supporting Document(s) Cortisol [Mass/volume] in Serum or Plasma 19.0 ug/dL [facility] Ref range for 6-10 am samples: 6.0-18.4 ug/dLRef range for 4-8 pm samples: 2.7- 10.5 ug/dLRef range not established for other times. ID Date Data Source [id number] 04/21/2021 10:19:45 AM [facility] Name Value Range Interpretation Code Description Data Irish rce(s) Supporting Document(s) Erythrocyte sedimentation rate 15 mm/hr <20 [facility] ID Date Data Source [id number] 04/21/2021 11:45:22 AM [facility] Name Value Range Interpretation Code Description Data Irish rce(s) Supporting Document(s) Procalcitonin [Mass/volume] in Serum or Plasma 0.49 ng/mL <0.10 H [facility] (NOTE) < 0.25 ng/mL Bacterial infec tion unlikely,particularly lower respiratory tract infections.0.25 -<0.50 ng/mL Low risk for progression to severe sepsis/septic shock. Localized infection is possible. Measurement done early (<6 hours) after systemic process starts may still be low.0.50 - 2.00 ng/mL Moderate risk for progression to sepsis/septic shock. > 2.00 ng/mL High risk for progression to sepsis/septic shock. ID Date Data Source [id number] 04/21/2021 12:49:22 PM [facility] Name Value Range Interpretation Code Description Data Irish rce(s) Supporting Document(s) Creatine kinase [Enzymatic activity/volume] in Serum or Plasma 51 U /L 20-200 [facility] ID Date Data Source [id number] 04/18/2021 01:20:00 PM [facility] Name Value Range Interpretation Code Description Data Irish rce(s) Supporting Document(s) TSH 3.254 uIU/mL 0.358-3.740 [facility] ID Date Data Source [id number] 04/18/2021 12:59:00 PM [facility] Name Value Range Interpretation Code Description Data Irish rce(s) Supporting Document(s) GLUCOSE 99 mg/dL 74-106 [facility] BLOOD UREA NITROGEN 20 mg/dL 7-18 H [facility] ital CREATININE 1.47 mg/dl 0.70-1.30 H [facility] SODIUM 142 mmol/L 136-145 [facility] POTASSIUM 5.2 mmol/L 3.5-5.1 H [facility] CHLORIDE 105 mmol/L 98-107 [facility] CO2 28 mmol/L 21-32 [facility] CALCIUM 8.4 mg/dL 8.5-10.1 L [facility] ANION GAP 9.0 mmol/L 5-12 [facility] GLOMERULAR FILTRATION RATE 50 mL/min [facility] GFR IS CALCULATED IN mL/min/1.73m2 NINA L FUNCTION: >90MILDLY DECREASED: 60-89MILDY TO MODERATELY DECREASED: 45-59 MODERATELY TO SEVERELY DECREASED: 30-44SEVERELY DECREASED: 15-29RENAL FAILURE: <15 AST 34 U/L 15-37 [facility] ALT 48 U/L 16-63 [facility] ALKALINE PHOSPHATASE 183 U/L 46-116 H [facility] TOTAL BILIRUBIN 0.3 mg/dL 0.2-1.0 [facility] TOTAL PROTEIN 7.1 g/dL 6.4-8.2 [facility] ALBUMIN 3.3 gm/dL 3.4-5.0 L [facility] ID Date Data Source [id number] 04/18/2021 12:28:00 PM [facility] Name Value Range Interpretation Code Description Data Irish e(s) Supporting Document(s) WHITE BLOOD COUNT 12.7 K/mm3 4.0-10.0 H [facility] oz RED BLOOD COUNT 3.75 M/mm3 4.50-6.00 L [facility] HEMOGLOBIN 12.1 gm/dL 14.0-18.0 L [facility] HEMATOCRIT 37.2 % 42.0-54.0 [facility] MEAN CELL VOLUME 99.2 fl 80-96 H [facility] l MEAN CORPUSCULAR HEMOGLOBIN 32.3 pg 27.0-31.[address] [facility] MEAN CORPUSCULAR HGB CONC 32.5 g/dl 32.0-36.0 [facility] RED CELL DISTRIBUTION WIDTH 14.2 % 10.0-14.5 [facility] PLATELET COUNT 187 K/mm3 172-450 [facility] MEAN PLATELET VOLUME 9.8 fl 9.0-13.0 [facility] pital GRAN % 70.5 % 50-80.0 [facility] IG% 1.1 % 0.0-0.2 H [facility] LYMPH % 11.0 % 25.0-50.0 L [facility] MONO % 12.5 % 2.0-10.0 H [facility] EOS % 4.6 % 0-5.0 [facility] BASO % 0.3 % 0.0-2.0 [facility] GRAN # 8.9 K/mm3 2.0-8.00 H [facility] IG# 0.1 K/mm3 0.0-0.2 [facility] LYMPH # 1.4 K/mm3 1.0-5.0 [facility] MONO # 1.6 K/mm3 0.10-1.20 H [facility] EOS # 0.6 K/mm3 0.0-0.5 H [facility] BASO # 0.0 K/mm3 0.0-0.2 [facility] ID Date Data Source [id number] 04/10/2021 09:23:[address] [facility] Name Value Range Interpretation Code Description Data Irish rce(s) Supporting Document(s) Progress Note [facility] TDGIYd9fPkLFEvVi69/LLRkyOVMoe0JzZNadSUf1BYinGGUuT7FwHGT3yB5dKFM5JCwJBhOxEuEbGJO8 m WvWokDZtZcHCUjQiuRXcRoYHixKukgjZRrAH7QwOT7XOAeM52wLESeCZVbQ2LlBKB7SmK+To7MPFWioK VwGS3AEhkP4B2gzxq0Kv7wvw3GlTXbTDP6yKSg4jYolRGuvcUvPeh7qCwwLwwbDBKjFJVM1mP/Weber/t3f Wvivkcf1e0AIm9hthLZJRjdXDyrIZAFi96smnJSv68 Kv+7/DXYhKe2Jt/8g1o3s+e45pxC6pk9RURne+UHxa/W+/SD4zN1+L1WRW/r2Y1HDJAm7WgGyH0P2iZk 43SR5Y/E8ezrKpIlojHlhj6gdMxreB1LmF051xa41ki13hd15Irxu1Dri4Q7lm9b7pMmeapaeejzn85W dYuFrj20FzqjGP/ozD09XZVYRfeNmHWOzF8dFdgQNz fklmfqvdv+k52ZPdJLrWhYAKh3VPqXnA5kzY5hpvgcRxRAyKGQ3rpArpRr5dl66upu1c1sLPGIf7qFlk cmJRuZefYsHKFy4xZJQONGA1vlWdhpNlQlbsGv+31xVCqQ9yiaBxU65NGOe0y0mS8cy4oAKH35C8Smx1 lUgugihfd0WFpypwbv5aM7iuKj86iYRgGJKehda24u [file] AgICAgICAgICAgICAgICAgICAgICAgICAgICAgICAgICAgICAgICAgICAgICAgICAgICAgICAgDQogIC AgICAgICAgICAgICAgICAgICAgICAgICAgICAgICAg ICAgICAgICAgICAgICAgICAgICAgICAgICAgICAgICAgICAgICAgICAgICAgICAgICAgICAgICAgICAg ICAgICAgDQogICAgICAgICAgICAgICAgICAgICAgICAgICAgICAgICAgICAgICAgICAgICAgICAgICAg ICAgICAgICAgICAgICAgICAgICAgICAgICAgICAgIC AgICAgICAgICAgICAgICAgDQogICAgICAgICAgICAgICAgICAgICAgICAgICAgICAgICAgICAgICAgIC AgICAgICAgICAgICAgICAgICAgICAgICAgICAgICAgICAgICAgICAgICAgICAgICAgICAgICAgICAgDQ ogICAgICAgICAgICAgICAgICAgICAgICAgICAgICAg ICAgICAgICAgICAgICAgICAgICAgICAgICAgICAgICAgICAgICAgICAgICAgICAgICAgICAgICAgICAg ICAgICAgICAgDQogICAgICAgICAgICAgICAgICAgICAgICAgICAgICAgICAgICAgICAgICAgICAgICAg ICAgICAgICAgICAgICAgICAgICAgICAgICAgICAgIC AgICAgICAgICAgICAgICAgICAgDQogICAgICAgICAgICAgICAgICAgICAgICAgICAgICAgICAgICAgIC AgICAgICAgICAgICAgICAgICAgICAgICAgICAgICAgICAgICAgICAgICAgICAgICAgICAgICAgICAgIC AgDQogICAgICAgICAgICAgICAgICAgICAgICAgICAg ICAgICAgICAgICAgICAgICAgICAgICAgICAgICAgICAgICAgICAgICAgICAgICAgICAgICAgICAgICAg ICAgICAgICAgICAgDQogICAgICAgICAgICAgICAgICAgICAgICAgICAgICAgICAgICAgICAgICAgICAg ICAgICAgICAgICAgICAgICAgICAgICAgICAgICAgIC AgICAgICAgICAgICAgICAgICAgICAgDQogICAgICAgICAgICAgICAgICAgICAgICAgICAgICAgICAgIC AgICAgICAgICAgICAgICAgICAgICAgICAgICAgICAgICAgICAgICAgICAgICAgICAgICAgICAgICAgIC OqRKVzSMj6G5jsUSJkBRLlAO2cKMi5Ep7+DQoNCmVu TXP2ulBtzL1TEH4tk2KjWGczCNArk1WvVOv1FF0XLXKbKHrpJX5HZTfzpl7HWMNnRLMyhVELa1agGzUt FNL5ZPOcXxtmJY9DDEIuZ6wfbcKbJDNkHJHBHJrfXBECJO5DUkPgL8EzoC51BLSUQz2+DQplbmRvYmoN GxCgGEToa3KsCYn1AA7QBEEuTtqba3WjLtKxKVNQYZ amBW6UMRN8RDCsRINiMy9ZPDAxX781alFqMY5GNk4XNvWxNW7trq4LPzSaSARqPlnLKgx5DMmuLX6KbG EvKMoMlm3axpXeazBEi1IfifXxfFSXgXxdXAFWBEYiLNZvIS6KSCI6ZFsuTmOqObKnGGUbCJjhSCHPQG jEWhWcT1Xqx1WyAvU8DZAxWkFdWFykYKAoFkK4LZ31 uIngNU3BMCPhCTTaHI97TCVnETDuIc5JUq3GVhDuVL6vut7GSpZoIEVdVncFWil4OQpqWW9VbSZeO7Sj pMXru4nWIcHgE5DCICM2TOJaUg8EOIBxUqWuMLOzITaeTV3gALCvFXCKpXmcqcK5ZP2JXP7eadTsWR4B XlYaXv0kWb1DEhXsG8UzD3ShUOLdVTBRPPeySC7KSP jnRR2fXP3Do3KPsGFpfD3oyn7IUPNcHIWeIsycwj4MDzzcD3J0rMeaZNQkNuZlAHJDMSynLB9NPYUuIO R2VMRsLDUgISAKZcHyH45sAI8NM3Hix65qEuG0CUCzAbVnDTtdUI02zOecvjIvgIHlnYocLX7IEy4+DQ plbmRvYmoNCnhyZWYNCjAgMjQNCjAwMDAwMDAwMDAg YkJ7HrUdEb3WGHQtXABwYQDoDvYlQLKsFUAtKRowGAIeXWLcXDM2QIOaOFLtNX5GHyVvAZCbXbFlYfEu PRKpJQGftz4FRXCcULJbJGY8EyCoNFNbYMKsPJgpFUPfWTL2LNi2YPFcYXXlPG5FEyHgKOClMLOrHmxp OFFcQFIuie9QSGMdKMYzDXP4AQMrEQJfAADrMNhiBE TkWUV3PPk0PXUaCVRtHT5KFvMsPSFcSIw4RoAjVUIaCPOotp6URDHjXZRfKIBcESDtHXRtMAGlSSjhTL TdBUK4WQAhJRKzEPIcZH8EPfEzAEOmKCG8NhnaEVKyJOUgia8HNGEcOTKlLJl1TOLnOKZtBLAqHSryNN OoYRMeGSW8AYFdHSTpVF7TTxUhQYEdXgL6QJNsMJYn WKJwsi5XHYFlXLIfHurqBCVgONKcEOUxMLznMRTgBOFbUOP1CBHpREBjWD3RPfIvJGZjQgHxGvnhXEKb GIIxyo7RGFErYOIoWyGnMCOjOCZvVMBeQLewDLRmFIIgREM4MMBtHSBhOV8ELpIeSAKqOcBfWnHmXNBw PFFgda5PPACvUAUdZUX2RRHgBKNmWHZxZKknKLUxNB L0ASz8HYIjTCOxCM8ZHwZcESkoVEFRYjb4QGokX8z6MWUbPH3UV8Yyi9LbSvSdPXZZTSvjGB6fzqOpOF CkYq8AN3rBCixdLnUdVxUaYlQ1Llj0DNYpFgy3HzY0ZXJ6USllExgsSr2oWNXiOkDqWNYpQOIzARp9GL I8IvIkWSm0QvrsNIMsQGGrByHyMP7KEi7TApF1MTD9pANlYq3TNpQ7TkWQLcKxKL2QFKk= ID Date Data Source [id number] 04/10/2021 09:23:10 PM EST [facility] Name Value Range Interpretation Code Description Data Irish rce(s) Supporting Document(s) Progress Note [facility] [id number]/JBXjgHUFma6HtFQglEXn6CGscOIKpA8XfDHD7yL9rSNV0ODkPHuVvNnPiKYX9 lbm [file] XGObQTVqVrQ2LQQpOSEiFIHcEyXlUaEmHL7OCs6CXwQ4MIV8kFOcNm4QEKQ2ZgJEYqToSE4PKWc= ID Date Data Source [id number] 04/07/2021 10:10:28 AM EDT [facility] Name Value Range Interpretation Code Description Data Irish rce(s) Supporting Document(s) Albumin [Mass/volume] in Serum or Plasma by Bromocresol green (BCG) dye binding method 3.9 g/dL 3.5-5.2 [facility] Bil[facility].total [Mass/volume] in Serum or Plasma 0.2 mg/dL <1.2 [facility] Calcium [Mass/volume] in Serum or Plasma 8.3 mg/dL 8.6-10.0 L [facility] Chloride [Moles/volume] in Serum or Plasma 101 mmol/L 98-107 [facility] Creatinine [Mass/volume] in Serum or Plasma 1.15 mg/dL 0.70-1.20 [facility] Glucose [Mass/volume] in Serum or Plasma 89 mg/dL 70-140 [facility] Alkaline phosphatase [Enzymatic activity/volume] in Serum or Plasma 122 U/L 40-129 [facility] Potassium [Moles/volume] in Serum or Plasma 4.3 mmol/L 3.4-5.1 [facility] Protein [Mass/volume] in Serum or Plasma 6.3 g/dL 6.4-8.3 L [facility] Sodium [Moles/volume] in Serum or Plasma 133 mmol/L 136-145 L [facility] Aspartate aminotransferase [Enzymatic activity/volume] in Serum or Plasma 20 U/L <40 [facility] Urea nitrogen [Mass/volume] in Serum or Plasma 20 mg/dL 6-20 [facility] Osmolality of Serum or Plasma by calculation 277 mosm/kg 275-300 [facility] Creatinine/Urea nitrogen [Mass Ratio] in Serum or Plasma 17 [facility] Bicarbonate [Moles/volume] in Serum 21 mmol/L 22-29 L [facility] Alanine aminotransferase [Enzymatic activity/volume] in Seru m or Plasma 16 U/L <41 [facility] Anion gap 3 in Serum or Plasma 11 mmol/L 8-15 [facility] Glomerular filtration rate/1.73 sq M pre dicted among non-blacks [Volume Rate/Area] in Serum or Plasma by Creatinine-based formula (MDRD) 70 mL/min/1.73m2 >60 [facility] Glomerular filtration rate/1.73 sq M pre dicted among blacks [Volume Rate/Area] in Serum or Plasma by Creatinine-based formula (MDRD) 82 mL/min/1.73m2 >60 [facility] ID Date Data Source [id number] 04/07/2021 10:10:28 AM [facility] Name Value Range Interpretation Code Description Data Irish rce(s) Supporting Document(s) Thyrotropin [Units/volume] in Serum or Plasma 2.980 u[IU]/mL 0.270-4. 200 [facility] ID Date Data Source [id number] 04/07/2021 09:29:17 AM [facility] Name Value Range Interpretation Code Description Data Irish rce(s) Supporting Document(s) Leukocytes [#/volume] in Blood by Automated count 9.7 10*3/uL 4-10 [facility] Erythrocytes [#/volume] in Blood by Automated count 3.30 10*6/uL 4.6- 6.1 L [facility] Hemoglobin [Mass/volume] in Blood 10.9 g/dL 13.5-18 L [facility] Hematocrit [Volume Fraction] of Blood by Automated count 33.8 % 4 1-53 L [facility] Erythrocyte mean corpuscular volume [Entitic volume] b y Automated count 102.6 fL 80-96 H [facility] Erythrocyte mean corpuscular hemoglobin [Entitic mass] by Automated count 33.0 pg 27-33 [facility] Erythrocyte mean corpuscular hemoglobin concentration [Mass/volume] by Automated count 32.2 g/dL 32.0-36.0 [facility] Erythrocyte distribution width [Ratio] by Automated count 16.5 % 11.5-14.5 H [facility] Platelets [#/volume] in Blood by Automated count 237 10*3/uL 150-400 [facility] Differential cell count method - Blood [facility] Neutrophils/100 leukocytes in Blood by Automated count 71 % [facility] Lymphocytes/100 leukocytes in Blood by Automated count 13 % [facility] Monocytes/100 leukocytes in Blood by Automated count 12 % [facility] Eosinophils/100 leukocytes in Blood by Automated count 3 % [facility] Basophils/100 leukocytes in Blood by Automated count 1 % [facility] Neutrophils [#/volume] in Blood by Automated count 6.95 10*3/uL 1.8-7 .0 [facility] Lymphocytes [#/volume] in Blood by Automated count 1.24 10*3/uL 1.2-4 .0 [facility] Monocytes [#/volume] in Blood by Automated count 1.15 10*3/uL 0-0.8 H [facility] Eosinophils [#/volume] in Blood by Automated count 0.28 10*3/uL 0-0.5 [facility] Basophils [#/volume] in Blood by Automated count 0.06 10*3/uL 0-0.2 [facility] Nucleated erythrocytes/100 leukocytes [Ratio] in Blood by Automated count 0 /100{WBCs} 0-0 [facility] ID Date Data Source [id number] 03/27/2021 11:37:20 AM EDT [facility] Name Value Range Interpretation Code Description Data Irish rce(s) Supporting Document(s) Progress Note [facility] YJMYCa1vJwHPLwHr64/IFPsdTNGlh7BmSPfxAFd8IByyMLPoK7UdBJE2xP8wXPF5NCxRZjJkKrTdTKK7 lbm [file] ICAgICAgICAgICAgICAgICAgICAgICAgICAgICAgIC AgICAgICAgICAgICANCiAgICAgICAgICAgICAgICAgICAgICAgICAgICAgICAgICAgICAgICAgICAgIC AgICAgICAgICAgICAgICAgICAgICAgICAgICAgICAgICAgICAgICAgICAgICAgICAgICAgICANCiAgIC AgICAgICAgICAgICAgICAgICAgICAgICAgICAgICAg ICAgICAgICAgICAgICAgICAgICAgICAgICAgICAgICAgICAgICAgICAgICAgICAgICAgICAgICAgICAg ICAgICANCiAgICAgICAgICAgICAgICAgICAgICAgICAgICAgICAgICAgICAgICAgICAgICAgICAgICAg ICAgICAgICAgICAgICAgICAgICAgICAgICAgICAgIC AgICAgICAgICAgICAgICANCiAgICAgICAgICAgICAgICAgICAgICAgICAgICAgICAgICAgICAgICAgIC AgICAgICAgICAgICAgICAgICAgICAgICAgICAgICAgICAgICAgICAgICAgICAgICAgICAgICAgICANCi AgICAgICAgICAgICAgICAgICAgICAgICAgICAgICAg ICAgICAgICAgICAgICAgICAgICAgICAgICAgICAgICAgICAgICAgICAgICAgICAgICAgICAgICAgICAg ICAgICAgICANCiAgICAgICAgICAgICAgICAgICAgICAgICAgICAgICAgICAgICAgICAgICAgICAgICAg ICAgICAgICAgICAgICAgICAgICAgICAgICAgICAgIC AgICAgICAgICAgICAgICAgICANCiAgICAgICAgICAgICAgICAgICAgICAgICAgICAgICAgICAgICAgIC AgICAgICAgICAgICAgICAgICAgICAgICAgICAgICAgICAgICAgICAgICAgICAgICAgICAgICAgICAgIC ANCiAgICAgICAgICAgICAgICAgICAgICAgICAgICAg ICAgICAgICAgICAgICAgICAgICAgICAgICAgICAgICAgICAgICAgICAgICAgICAgICAgICAgICAgICAg ICAgICAgICAgICANCiAgICAgICAgICAgICAgICAgICAgICAgICAgICAgICAgICAgICAgICAgICAgICAg ICAgICAgICAgICAgICAgICAgICAgICAgICAgICAgIC AgICAgICAgICAgICAgICAgICAgICANCjw/cOJzW4oztVIhvrY9Y2ocRw9APn7YUC3ky6VhRQLmRZfvct AoYedDNmUuBCVlSovKSra2LBqvCV6OvACqG0UnW1JkGHxgUL9IBULgIFFhiOVaQHRoWLRePrT4YAUnQU hlYI2NzGYqFEqeOKEhYYCsXYUuSSEkBBRqWVTYYCPl RLAqYkHxEILmGLHdIKZdOSVCJP4OLkIzY3IhnM80HTVNOf7+KAsmmlSwPqqOAxBcWMCsu2SqRLc6KK0X XELvIhycb4HbSgVrQKGPWWudYJ6AZFK5TCF9WXQlPu3SRDWeK947rxVnEO2XGz1MFkAbOW2ufp0BByRf RERmGkfORta5UNrlAZ6HgPBsMNyVuo4ijcVgztQSo9 FhalCkyWWZfWJbutCtJNAOzKnkcpteSIBmJCQzQMJvLzWmDgGhWGUtRLu8LZXKYFvEOxAjY3Zoj2ZtNh B6QYRzQeHeFIevKGOaQhH1CE77hFyfEL2HIFHwLJPxYT14CISnWOXhIq4IWj4DFcToYM2uyl3DIlIdMK 4aed2BVYnLYeQqW8U6uJBsN2Xhkf51XA3QlVY5cTYx RI5HnS7rDU0Jy1SxARTxHrYhGDVzLYFvWZTlLBAcDjMvPP8QMYRcQlWnqKMdHSJbMMG1WPMoLsD5UTOi OK7HRZGdRAG5SN7WYO8JPmgsJ3BEBKbzvRyjAgLYECP/XHDIAWFFYApkMLVmF60BO2XAFEzMVyzaEHpP HctxMv1qBHo+Rc1OMX9bd9QfAGehXVIaCJ2jqw3ZQT aOXpDuV1H2sPVgT3S3ZBkgFd8FUDJlKHCbFlOtHIXEDPotIX7LJS0cgoF3RF9BaDAaXZFoRMMvuTOvEG p0F19qhPSdYNlgRI8RPYX+Zeferino+Yu5ZSUIpOYOvJVNsYdGzTNSQThEmW1DuR9KLn8SyW1PhPS31oZqqtq NiSWbfYA6CWB6aQPUkXIBLBS6YcVAtoS6ukzGnQaDg UPMNUnSpD86moRNoWTBfEVMpLKUiYg4QOOTiJ3LfriJkxInrhsFgYHQqLPTMJS4NBEfpadVvhOZedEqr DF87lUbiGN7CFz5YRlDuMJ9aim8JlAKuWk2BIKEyHd3LDTNrRRRdRPJxOGE2DKCmSwKqFSygJQEhUGLn ODD1HTOeLTDtXF0QZyTjNHMnVfpuDjFfSGGvPFVans 6BKNZbAWQqOVvuKMWaMKQpXHVwJGgtEWOmSOUmWTW9MAQpIUSdYE4UDjKkSMBzHVTrVTOfNROnFQQmvm 3ATBHfRQR2MNR1CwGuCPNvGZNpPCnpYHDxUTB3GpXkOHPxDWYmXB4GEeSqJWGaUTlqAyDbUTUkXZFfli 7QERUmSRQjQKZ1QCIkALYkQNSyXIfcNEAoYQUtKjan IYMqPGSxCW2EEaJjWOKpDBE2LxiaMPToQWCxni6TGVYzBAGePWCiDJJdKNCmZBTbPKxaQQKlSMU0WjFb SFXzJUFnMW9SEyQcZSPuJBecICAmSZPiGPSwto4VYWXzSYKbVNL2LZGrVMImCRCqLUsnLENjSXUvQXk7 MLPpWBMbED9HWcMePLPhCrS7BEWsZEJsRKUfyl5VEF ZdVRIpYxs1TQGnJJTnDELyOZfiKSKrXVWsCROySFFhGXRmVF9LUgRsGAHnZdCxEpAyNJTrJFHoxp2IWA JeZFBbZTO0QnDmVJKbHQXuDQuiDQOiZFK7Kkx3WBWmERScFU0YWdPiLVWlOsO0JCEuVVWsZCDvls1LPD ClPVUzRMglXaCcAKXaEXOsOCtpMJTuBOY1HqI9QLJe PCJpKT4LHrMuNTIwNmV5ZLehBPGuAIDhni5SREVbPGTeBgD0LsQmGTWjSPWqBAqiQTZhOQX8EQTgIDXd CHDxQY5GVbIhHKGdRph4IMzrCQMeFFLbht0OUASuRCXsArb4ZNFvAIGzTYVqCDhwAJVcMNA4VCMgWVCe LDRhGP6CSyJkEQByXne2GbKlBNWnTZUfri3ESOKpSN G5EVQ1VgLkQQTmBVVaOLgaOVBiOANpPWRaMLUxUAKuOS5YXpBoQBGcYXF7TojgKRYoEKIbex8IeDTmjE bqvy8JWMoJBo9GhAhsXSZ9JJqrCb1ixCGtJBFaAZTUBu0QqiIqLRDzRQQDWSpkFVTkEQPaLAP3KWB5Tn VmLISkHSUhVwE8WEMvWHFkJmAsVLJ5BhZ6G3O8QnUd Hui7RFU0T9Y3EbW4HTw8CPHgKEVyDtJ7Dhp+AW0eYAj+Za8Ed8HgjnM3egGhNXt3JUN5Ln9XVWPZA4BN Cg== ID Date Data Source [id number] 03/24/2021 09:02:28 AM EDT [facility] Name Value Range Interpretation Code Description Data Irish e(s) Supporting Document(s) Leukocytes [#/volume] in Blood by Automated count 8.9 10*3/uL 4-10 [facility] Erythrocytes [#/volume] in Blood by Automated count 3.16 10*6/uL 4.6- 6.1 L [facility] Hemoglobin [Mass/volume] in Blood 11.0 g/dL 13.5-18 L [facility] Hematocrit [Volume Fraction] of Blood by Automated count 33.5 % 4 1-53 L [facility] Erythrocyte mean corpuscular volume [Entitic volume] b y Automated count 106.0 fL 80-96 H [facility] Erythrocyte mean corpuscular hemoglobin [Entitic mass] by Automated count 34.9 pg 27-33 [facility] Erythrocyte mean corpuscular hemoglobin concentration [Mass/volume] by Automated count 32.9 g/dL 32.0-36.0 [facility] Erythrocyte distribution width [Ratio] by Automated count 16.6 % 11.5-14.5 H [facility] Platelets [#/volume] in Blood by Automated count 278 10*3/uL 150-400 [facility] Differential cell count method - Blood [facility] Neutrophils/100 leukocytes in Blood by Automated count 73 % [facility] Lymphocytes/100 leukocytes in Blood by Automated count 11 % [facility] Monocytes/100 leukocytes in Blood by Automated count 11 % [facility] Eosinophils/100 leukocytes in Blood by Automated count 4 % [facility] Basophils/100 leukocytes in Blood by Automated count 1 % [facility] Neutrophils [#/volume] in Blood by Automated count 6.58 10*3/uL 1.8-7 .0 [facility] Lymphocytes [#/volume] in Blood by Automated count 0.96 10*3/uL 1.2-4 .0 L [facility] Monocytes [#/volume] in Blood by Automated count 1.01 10*3/uL 0-0.8 [facility] Eosinophils [#/volume] in Blood by Automated count 0.32 10*3/uL 0-0.5 [facility] Basophils [#/volume] in Blood by Automated count 0.08 10*3/uL 0-0.2 [facility] Nucleated erythrocytes/100 leukocytes [Ratio] in Blood by Automated count 0 /100{WBCs} 0-0 [facility] ID Date Data Source [id number] 03/24/2021 09:36:58 AM T [facility] Name Value Range Interpretation Code Description Data Irish rce(s) Supporting Document(s) Albumin [Mass/volume] in Serum or Plasma by Bromocresol green (BCG) dye binding method 4.0 g/dL 3.5-5.2 [facility] al Bilirubin.total [Mass/volume] in Serum or Plasma <1.2 [facility] Calcium [Mass/volume] in Serum or Plasma 8.9 mg/dL 8.6-10.0 [facility] Chloride [Moles/volume] in Serum or Plasma 104 mmol/L 98-107 [facility] Creatinine [Mass/volume] in Serum or Plasma 1.25 mg/dL 0.70-1.20 [facility] Glucose [Mass/volume] in Serum or Plasma 92 mg/dL 70-140 [facility] Alkaline phosphatase [Enzymatic activity/volume] in Serum or Plasma 110 U/L 40-129 [facility] Potassium [Moles/volume] in Serum or Plasma 4.4 mmol/L 3.4-5.1 [facility] Protein [Mass/volume] in Serum or Plasma 6.4 g/dL 6.4-8.3 [facility] Sodium [Moles/volume] in Serum or Plasma 137 mmol/L 136-145 [facility] Aspartate aminotransferase [Enzymatic activity/volume] in Serum or Plasma 17 U/L <40 [facility] Urea nitrogen [Mass/volume] in Serum or Plasma 24 mg/dL 6-20 [facility] Osmolality of Serum or Plasma by calculation 288 mosm/kg 275-300 [facility] Creatinine/Urea nitrogen [Mass Ratio] in Serum or Plasma 19 [facility] Bicarbonate [Moles/volume] in Serum 25 mmol/L 22-29 [facility] Alanine aminotransferase [Enzymatic activity/volume] in Seru m or Plasma 15 U/L <41 [facility] Anion gap 3 in Serum or Plasma 9 mmol/L 8-15 [facility] Glomerular filtration rate/1.73 sq M pre dicted among non-blacks [Volume Rate/Area] in Serum or Plasma by Creatinine-based formula (MDRD) 64 mL/min/1.73m2 >60 [facility] Glomerular filtration rate/1.73 sq M pre dicted among blacks [Volume Rate/Area] in Serum or Plasma by Creatinine-based formula (MDRD) 74 mL/min/1.73m2 >60 [facility] ID Date Data Source [id number] 03/24/2021 09:36:58 AM [facility] Name Value Range Interpretation Code Description Data Irish rce(s) Supporting Document(s) Thyrotropin [Units/volume] in Serum or Plasma 1.920 u[IU]/mL 0.270-4. 200 [facility] ID Date Data Source [id number] 03/10/2021 09:17:48 AM [facility] Name Value Range Interpretation Code Description Data Irish rce(s) Supporting Document(s) Leukocytes [#/volume] in Blood by Automated count 12.0 10*3/uL 4-10 [facility] Erythrocytes [#/volume] in Blood by Automated count 2.81 10*6/uL 4.6- 6.1 L [facility] Hemoglobin [Mass/volume] in Blood 10.4 g/dL 13.5-18 L [facility] Hematocrit [Volume Fraction] of Blood by Automated count 31.2 % 4 1-53 L [facility] Erythrocyte mean corpuscular volume [Entitic volume] b y Automated count 111.2 fL 80-96 [facility] Erythrocyte mean corpuscular hemoglobin [Entitic mass] by Automated count 37.0 pg 27-33 [facility] Erythrocyte mean corpuscular hemoglobin concentration [Mass/volume] by Automated count 33.3 g/dL 32.0-36.0 [facility] Erythrocyte distribution width [Ratio] by Automated count 16.4 % 11.5-14.5 [facility] Platelets [#/volume] in Blood by Automated count 312 10*3/uL 150-400 [facility] Differential cell count method - Blood [facility] Neutrophils/100 leukocytes in Blood by Automated count 79 % [facility] Lymphocytes/100 leukocytes in Blood by Automated count 9 % [facility] Monocytes/100 leukocytes in Blood by Automated count 9 % [facility] Eosinophils/100 leukocytes in Blood by Automated count 2 % [facility] Basophils/100 leukocytes in Blood by Automated count 1 % [facility] Neutrophils [#/volume] in Blood by Automated count 9.55 10*3/uL 1.8-7 .0 [facility] Lymphocytes [#/volume] in Blood by Automated count 1.01 10*3/uL 1.2-4 .0 L [facility] Monocytes [#/volume] in Blood by Automated count 1.10 10*3/uL 0-0.8 [facility] Eosinophils [#/volume] in Blood by Automated count 0.23 10*3/uL 0-0.5 [facility] Basophils [#/volume] in Blood by Automated count 0.06 10*3/uL 0-0.2 [facility] Nucleated erythrocytes/100 leukocytes [Ratio] in Blood by Automated count 0 /100{WBCs} 0-0 [facility] ID Date Data Source [id number] 03/10/2021 09:47:57 AM EDT [facility] Name Value Range Interpretation Code Description Data Irish rce(s) Supporting Document(s) Albumin [Mass/volume] in Serum or Plasma by Bromocresol green (BCG) dye binding method 4.1 g/dL 3.5-5.2 [facility] Bilirubin.total [Mass/volume] in Serum or Plasma 0.2 mg/dL <1.2 [facility] Calcium [Mass/volume] in Serum or Plasma 8.8 mg/dL 8.6-10.0 [facility] Chloride [Moles/volume] in Serum or Plasma 105 mmol/L 98-107 [facility] Creatinine [Mass/volume] in Serum or Plasma 1.07 mg/dL 0.70-1.20 [facility] Glucose [Mass/volume] in Serum or Plasma 97 mg/dL 70-140 [facility] Alkaline phosphatase [Enzymatic activity/volume] in Serum or Plasma 107 U/L 40-129 [facility] Potassium [Moles/volume] in Serum or Plasma 4.2 mmol/L 3.4-5.1 [facility] Protein [Mass/volume] in Serum or Plasma 6.3 g/dL 6.4-8.3 [facility] Sodium [Moles/volume] in Serum or Plasma 136 mmol/L 136-145 [facility] Aspartate aminotransferase [Enzymatic activity/volume] in Serum or Plasma 14 U/L <40 [facility] Urea nitrogen [Mass/volume] in Serum or Plasma 19 mg/dL 6-20 [facility] Osmolality of Serum or Plasma by calculation 284 mosm/kg 275-300 [facility] Creatinine/Urea nitrogen [Mass Ratio] in Serum or Plasma 18 [facility] Bicarbonate [Moles/volume] in Serum 22 mmol/L 22-29 [facility] Alanine aminotransferase [Enzymatic activity/volume] in Seru m or Plasma 10 U/L <41 [facility] Anion gap 3 in Serum or Plasma 9 mmol/L 8-15 [facility] Glomerular filtration rate/1.73 sq M pre dicted among non-blacks [Volume Rate/Area] in Serum or Plasma by Creatinine-based formula (MDRD) 77 mL/min/1.73m2 >60 [facility] Glomerular filtration rate/1.73 sq M pre dicted among blacks [Volume Rate/Area] in Serum or Plasma by Creatinine-based formula (MDRD) 89 mL/min/1.73m2 >60 [facility] ID Date Data Source [id number] 03/10/2021 09:47:57 AM EDT [facility] Name Value Range Interpretation Code Description Data Irish rce(s) Supporting Document(s) Thyrotropin [Units/volume] in Serum or Plasma 2.590 u[IU]/mL 0.270-4. 200 [facility] ID Date Data Source [id number] 02/24/2021 08:49:29 AM T [facility] Name Value Range Interpretation Code Description Data Irish rce(s) Supporting Document(s) Leukocytes [#/volume] in Blood by Automated count 8.7 10*3/uL 4-10 [facility] Erythrocytes [#/volume] in Blood by Automated count 2.48 10*6/uL 4.6- 6.1 L [facility] Hemoglobin [Mass/volume] in Blood 9.6 g/dL 13.5-18 L [facility] Hematocrit [Volume Fraction] of Blood by Automated count 28.4 % 4 1-53 L [facility] Erythrocyte mean corpuscular volume [Entitic volume] b y Automated count 114.5 fL 80-96 H [facility] Erythrocyte mean corpuscular hemoglobin [Entitic mass] by Automated count 38.6 pg 27-33 H [facility] Erythrocyte mean corpuscular hemoglobin concentration [Mass/volume] by Automated count 33.8 g/dL 32.0-36.0 [facility] distribution width [Ratio] by Automated count 18.1 % 11.5-14.5 H [facility] Platelets [#/volume] in Blood by Automated count 343 10*3/uL 150-400 [facility] Differential cell count method - Blood [facility] Neutrophils/100 leukocytes in Blood by Automated count 70 % [facility] Lymphocytes/100 leukocytes in Blood by Automated count 14 % [facility] Monocytes/100 leukocytes in Blood by Automated count 12 % [facility] Eosinophils/100 leukocytes in Blood by Automated count 3 % [facility] Basophils/100 leukocytes in Blood by Automated count 1 % [facility] Neutrophils [#/volume] in Blood by Automated count 6.12 10*3/uL 1.8-7 .0 [facility] Lymphocytes [#/volume] in Blood by Automated count 1.19 10*3/uL 1.2-4 .0 L [facility] Monocytes [#/volume] in Blood by Automated count 1.02 10*3/uL 0-0.8 H [facility] Eosinophils [#/volume] in Blood by Automated count 0.30 10*3/uL 0-0.5 [facility] Basophils [#/volume] in Blood by Automated count 0.04 10*3/uL 0-0.2 [facility] Nucleated erythrocytes/100 leukocytes [Ratio] in Blood by Automated count 0 /100{WBCs} 0-0 [facility] ID Date Data Source [id number] 02/24/2021 09:41:32 AM EDT [facility] Name Value Range Interpretation Code Description Data Irish rce(s) Supporting Document(s) Albumin [Mass/volume] in Serum or Plasma by Bromocresol green (BCG) dye binding method 4.3 g/dL 3.5-5.2 [facility] Bilirubin.total [Mass/volume] in Serum or Plasma 0.3 mg/dL <1.2 [facility] Calcium [Mass/volume] in Serum or Plasma 8.6 mg/dL 8.6-10.0 [facility] Chloride [Moles/volume] in Serum or Plasma 107 mmol/L 98-107 [facility] Creatinine [Mass/volume] in Serum or Plasma 1.27 mg/dL 0.70-1.20 H [facility] Glucose [Mass/volume] in Serum or Plasma 85 mg/dL 70-140 [facility] Alkaline phosphatase [Enzymatic activity/volume] in Serum or Plasma 112 U/L 40-129 [facility] Potassium [Moles/volume] in Serum or Plasma 4.1 mmol/L 3.4-5.1 [facility] Protein [Mass/volume] in Serum or Plasma 6.7 g/dL 6.4-8.3 [facility] Sodium [Moles/volume] in Serum or Plasma 142 mmol/L 136-145 [facility] Aspartate aminotransferase [Enzymatic activity/volume] in Serum or Plasma 12 U/L <40 [facility] Urea nitrogen [Mass/volume] in Serum or Plasma 18 mg/dL 6-20 [facility] Osmolality of Serum or Plasma by calculation 295 mosm/kg 275-300 [facility] Creatinine/Urea nitrogen [Mass Ratio] in Serum or Plasma 14 [facility] Bicarbonate [Moles/volume] in Serum 25 mmol/L 22-29 [facility] Alanine aminotransferase [Enzymatic activity/volume] in Seru m or Plasma 10 U/L <41 [facility] Anion gap 3 in Serum or Plasma 10 mmol/L 8-15 [facility] Glomerular filtration rate/1.73 sq M pre dicted among non-blacks [Volume Rate/Area] in Serum or Plasma by Creatinine-based formula (MDRD) 62 mL/min/1.73m2 >60 [facility] Glomerular filtration rate/1.73 sq M pre dicted among blacks [Volume Rate/Area] in Serum or Plasma by Creatinine-based formula (MDRD) 72 mL/min/1.73m2 >60 [facility] ID Date Data Source [id number] 02/17/2021 07:24:15 PM EDT [facility] Name Value Range Interpretation Code Description Data Irish rce(s) Supporting Document(s) Progress Note [facility] MOUZSe2tAjPHPkLv13/ACVrdFIDzs9VdLWfsPHt4IAazNNLjG9MrCDJ5oZ8kYZD9RNcGGpGuHlTjBTR5 lbm LyDikPZyIwWTZmWkaQCtXuGPmkJwwwsFSeAP0UkBH9NYUrW83fDSYoFYGfU6JjPOJ0KsA+Im2SKOLfyC VkRE5WWnxB8D1qyvr1Ii8ieH+BQNAiCWxpl/sGTrXjYApZmmTFYFboJoG4jAXcWkhx3xE1Lkn8H/mp3V rrSqt9aWBWyBNmZIgSGEyqgToiZBPXAm/8V+2ZwHEc Vfx7+6eJtTq/Un/8g1o38/Rts/CfnMQ6VHcDI6wZ0d9878RFRi/V/rtHshsLjdq31SrKbz+rpq6gTkge LnzcFZkyKbmifE9jlQH0/dnop9tUe6jkSwa171xlOb5L746tf1oO6egy091Po0NNO3Lbg3zZtonSGNps t1LTqabdZKL5DUQF032o99Uy8PM3vApsrg6e49U+6N Ts7LBSLvgoB+0wFeOthEm5Niyqt1EZcicRbzT+ykvjpq0cJehYO6u8Tp3wl1Nw+vTmdrW2Jhu1aLhvF6 u+CkIdMY6DJWRzmLvcFAgfLijIKGiR8TgifPaZ4OJNP5nn1Ll+u5ZaTm0Ze/US2Fjfur/fK8XsgJ+WXR 1jY3fJmQ5I/ATY0az44skB7wSammzozk33336W400Q [file] JiawZiwrBVD9HPVyJAQyXRDbBC5sPVJPNv7+WVkzhOBsyKzmGXLKFyN4UyIeVNdmWCBFVj4U ID Date Data Source [id number] 02/17/2021 07:24:10 PM EDT [facility] Name Value Range Interpretation Code Description Data Irish rce(s) Supporting Document(s) Progress Note [facility] VGNJDy6nVjFGMzWf55/IAKgiHOVyz8RsUFdxQZo8WMzaMBQmT3PrIPK8wB6kKQC9RXpZWxCiRbUaZEI9 lbm [file] IMdvTPRxAQ5qBONBXk0+ZFlcgYVvvJfpNQAAHkEdJNZ4LInfMYHATm2L ID Date Data Source [id number] 01/25/2021 11:50:00 AM EDT [facility] ([facility]) Name Value Range Interpretation Code Description Data Irish rce(s) Supporting Document(s) Glucose [Mass/volume] in Serum or Plasma 89 mg/dL 74-99 [facility] ([facility]) 100-125 mg/dL PRE-DIABETES/FASTING >126 mg/dL DIABETES/FASTING Urea nitrogen [Mass/volume] in Serum or Plasma 28 mg/dL 7-18 [facility] ([facility]) Creatinine 1.4 mg/dL 0.6-1.3 [facility] ([facility]) Sodium [Moles/volume] in Serum or Plasma 141 meq/L 136-145 [facility] ([facility]) Potassium [Moles/volume] in Serum or Plasma 4.8 meq/L 3.5-5.1 [facility] ([facility]) Chloride [Moles/volume] in Serum or Plasma 107 meq/L 98-107 [facility] ([facility]) Carbon dioxide, total [Moles/volume] in Serum or Plasma 27 meq/L 21 -32 [facility] ([facility]) Calcium [Mass/volume] in Serum or Plasma 8.9 mg/dL 8.5-10.1 [facility] ([facility] Total Bilirubin 0.5 mg/dL 0.2-1.0 [facility] Alkaline phosphatase isoenzyme [Units/volume] in Serum or Pl asma 92 mg/dL 46-116 [facility] ([facility]) Aspartate aminotransferase [Enzymatic activity/volume] in Serum or Plasma 25 U/L 15-37 [facility] ([facility] ) Alanine aminotransferase [Enzymatic activity/volume] in Seru m or Plasma 41 U/L 12-78 [facility] ([facility]) Albumin [Mass/volume] in Serum or Plasma 3.7 g/dL 3.4-5.0 [facility] ([facility]) Glomerular filtration rate/1.73 sq M pre dicted among non-blacks [Volume Rate/Area] in Serum or Plasma by Creatinine-based formula (MDRD) 53 mL/min [facility] A/G Ratio 1.19 CALC 1.00-1.90 [facility] Proteinase 3 Ab [Units/volume] in Serum 6.8 g/dL 6.4-8.2 [facility] Glomerular filtration rate/1.73 sq M pre dicted among blacks [Volume Rate/Area] in Serum or Plasma by Creatinine-based formula (MDRD) Laboratory test result [facility] ([facility]) <content>CHRONIC KIDNEY DISEASE STAGING PER NKF</content>
<content></content>
<content>STAGE I & II GFR >= 60 NORMAL TO MILDLY DECREASED</content>
<content>STAGE III GFR 30-59 MODERATELY DECREASED</content>
<content>STAGE IV GFR 15-29 SEVERELY DECREASED</content>
<content>STAGE V GFR <15 VERY LITTLE GFR LEFT</content>
<content>ESRD GFR <15 [employer]</content>
<content></content> ID Date Data Source [id number] 01/25/2021 11:50:00 AM EDT [facility] Name Value Range Interpretation Code Description Data Irish rce(s) Supporting Document(s) Glucose mean value [Mass/volume] in Blood Estimated fr om glycated hemoglobin 120 mg/dL 60-110 [facility] Hemoglobin A1c/Hemoglobin.total in Blood 5.8 % [facility] ([facility]) Lab Result Notes: Pre-Diabetes 5.7 - 6.4 % Diabetes = or > 6.5% ID Date Data Source [id number] 01/25/2021 11:50:00 AM EDT [facility] ([facility] Name Value Range Interpretation Code Description Data Irish rce(s) Supporting Document(s) Cholesterol [Mass/volume] in Serum or Plasma 171 mg/dL 131-200 [facility] ([facility]) Triglyceride [Mass/volume] in Serum or Plasma 58 mg/dL 30-150 [facility] Cholesterol in HDL [Mass/volume] in Serum or Plasma 58 mg/dL 35-60 [facility] ([facility]) Cholesterol in LDL [Mass/volume] in Serum or Plasma by calcu tejal 101 CALC 50-159 [facility] ([facility]) ID Date Data Source [id number] 01/23/2021 08:14:36 AM EDT [facility] Name Value Range Interpretation Code Description Data Irish rce(s) Supporting Document(s) Progress Note [facility] EXOIOj8aFlFSUzEb22/OMYukWKDgk4IyCBlfOAd0SJmmUPDpM2VkXOP4pT3oXDQ2ZYxMTrGoJwAuIEYr lb [file] AgICAgICAgICAgICAgICAgICAgICAgICAgICAgICAgICAgICAgICAgICAgICAgICAgICAgICAgICAgIC AgICAgICAgICAgICAgICAgICAgICAgICAgICAgICAg ICAgICAgICANCiAgICAgICAgICAgICAgICAgICAgICAgICAgICAgICAgICAgICAgICAgICAgICAgICAg ICAgICAgICAgICAgICAgICAgICAgICAgICAgICAgICAgICAgICAgICAgICAgICAgICANCiAgICAgICAg ICAgICAgICAgICAgICAgICAgICAgICAgICAgICAgIC AgICAgICAgICAgICAgICAgICAgICAgICAgICAgICAgICAgICAgICAgICAgICAgICAgICAgICAgICAgIC ANCiAgICAgICAgICAgICAgICAgICAgICAgICAgICAgICAgICAgICAgICAgICAgICAgICAgICAgICAgIC AgICAgICAgICAgICAgICAgICAgICAgICAgICAgICAg ICAgICAgICAgICANCiAgICAgICAgICAgICAgICAgICAgICAgICAgICAgICAgICAgICAgICAgICAgICAg ICAgICAgICAgICAgICAgICAgICAgICAgICAgICAgICAgICAgICAgICAgICAgICAgICAgICANCiAgICAg ICAgICAgICAgICAgICAgICAgICAgICAgICAgICAgIC AgICAgICAgICAgICAgICAgICAgICAgICAgICAgICAgICAgICAgICAgICAgICAgICAgICAgICAgICAgIC AgICANCiAgICAgICAgICAgICAgICAgICAgICAgICAgICAgICAgICAgICAgICAgICAgICAgICAgICAgIC AgICAgICAgICAgICAgICAgICAgICAgICAgICAgICAg ICAgICAgICAgICAgICANCiAgICAgICAgICAgICAgICAgICAgICAgICAgICAgICAgICAgICAgICAgICAg ICAgICAgICAgICAgICAgICAgICAgICAgICAgICAgICAgICAgICAgICAgICAgICAgICAgICAgICANCiAg ICAgICAgICAgICAgICAgICAgICAgICAgICAgICAgIC AgICAgICAgICAgICAgICAgICAgICAgICAgICAgICAgICAgICAgICAgICAgICAgICAgICAgICAgICAgIC AgICAgICANCiAgICAgICAgICAgICAgICAgICAgICAgICAgICAgICAgICAgICAgICAgICAgICAgICAgIC AgICAgICAgICAgICAgICAgICAgICAgICAgICAgICAg ICAgICAgICAgICAgICAgICANCjw/kVHcW4iybDSbjyH2K7xxAy3PZc2PMY3fu2WyARDuRIvpdmIpEbcY BzIuNKKcLpoYUhm8USucWZ7JaNKmT7AiW6HcDGmpKL7PZVRuTWZakJNzXVEqTTIyIqT6CGRrMMbcVT8O aWRzIFsgNSAwIFIgNyAwIFIgOSAwIFIgMTEgMCBSID XnMDCiUqDmNQJlNYPoIQ0SLYZvC104rzNaSa4UPb7BXwXnDU0azn2MXhHtTEEcVmyRIwe6MRewCX4SqF UbsGBfJaAsQQAZMdWcC2cfq7ZpFaPyXGKNRGanHG1Jx2VsfQAkQTe+Eu2AKR8dd7BhDAotXvByNS9oyr 6NDRzGHdUwR4OqnMuoPAWfy1zsJHEhFY8lnWWzJXD2 XSrvzTBcORFiJ6Ads4pqKFAFZFOjkLP0BcFrBsYzGhCqZQd6YcQiWK2vFYfsXS8QKHT1BGidPBPzFDAv G1vSGeCuSRYhQEBkrLsnKM3PMlNbL8WutbPogFUxXJZlCZKRRq6+QYhhxtFiMltNSoN2DRZeo5PcADs2 TX7FRBKdFHsgNM5BUDIziM8iVEdxUV7CHcCdDmPnFQ BBNwTkW66bzACfWVb1D1NwVyOqONZvUdskNOZmFWhvKbFeEHXbGjWyWCkfRT4+ID4+MWihNC5MHLywby ZbKZDvPp9SEVJsIHTjVL6qWPGtKIHcH4V5vUinBSIPQaKgK2eijrwbKA5yISAvS035zKamubGlTVQ8NK MiAn4NGSGoRGE8RNFhpRBpGfDmZCUSNCtbSJ0AzEQl QMA3uZ0hTYdoPVVoPHWyW5gHHfLcyTlzEM38tWcrweBvgMHrOYo+Qy7XLY8pm4XnRVg9uuAhIDidBIS4 UKmmYGCxKLWsZWIhDQL3TSW3JUFICvOeRMTwYZMyYIqeKYWqOYFmzx0MCVBlMXIcDEptKrKgIHGzDTCc JBbjQVZrEPOtLhWtEXRpGOCuFF7LXlUqXCAfRNYaIA uvGNExUIEwrl5YOOIuQXWbLBN3SfVvHNKkUWAtMGzqZAJqTMW5Ccf8ADWdLUBgIM2GLxCuJTZzOMadFR FyLVYzPVBolw9KCKUsNNZaZKO2PCHoJMFjEYOzMKskZIKlFAWnTJX3VNNmABWwBG4OLeLgUWAsJZP2Kl vmDISrZMJbpl1IUGRcYAQgNDRvZVHtTFVeWWBhBBbd VGWrEEH0YeJxEPArSTVoAS7GTeRbNEAyMRo0FUJkVIFlADRvje4XZYFnXYEsOxoyDVSzRCFjLMSsHBbx SLHeTUVnJUB4GVHmWPYxVU2SZyIyWBJrZcOsAkRwLNZhZRKqfx7IEEMgMNRuIcP0GHXdZJCdPCLfHFca XLVtWCOhUjohVYEqQGFjKK2BGbNlAFMaNhY1WeHdRT LpORUwow1CNNOcQXFdBtEmUHFcWXEhRMZrZBgjSNAlZXNbKiK2QHBjBJDzEM9QFlDjDQRxZwG1SpVsRN TsRNCjve2VKBTxCJJeNGB5MVBtNTXzFOBnEVwoBFTuCBA8Nqa6RMFoGVViSL0TPlOmCFZeVnJ2KTdhMV FtZPDkwy2HJUGvKMPsOfHpOVJuXKWvNPDpPBwwFOMl AMA2Zvs1JOAnZEQwDD0UUxBuBAXpZaajCoouJYSmIHQusr5WKEWaVSXqZkMmZgHbHKAxNWJpQHeaGYIv CAO3MGh6KYSwMRGrBN7RAjBsKPWnDdg6CipjTGHrUELjzf3PVTBvOZBxCEjwTCIeUASpMFRgDVrcFMDq UIO7HQiqSYJqGPHdKH1EUgAjMNYoXrwuFiOlFUCvWJ Ycrv4KWENwINI3SJp8HZPjVPJcMKEoGSuoKJOpISAgAJE2YNYoUAUmAF4JFdOgCBQvDWOzUDGqMLUeHG Bssm5ViZQobCpsbz1TATkLEr3DqWkdYOT2SKfhZc4rrYVsGgKaZCCOOo0MubLmBJYfJPTMTXpnEWJhHQ P0IAWzGHC7JDhuJ0AkNyomCVP6HID1E0J5EtX6FVYc GpQ3SeKsKFV6WfIyXKOdGXLdSDEpBkvoDmfgFaR5QrJmICG+IG4wOLr+Oj9Zh3LafqP2ecYfNLv2YMZ5 TE8XTXQAH8HGWh== ID Date Data Source [id number] 01/20/2021 09:17:55 AM EDT [facility] Name Value Range Interpretation Code Description Data Irish rce(s) Supporting Document(s) Leukocytes [#/volume] in Blood by Automated count 6.3 10*3/uL 4-10 [facility] Erythrocytes [#/volume] in Blood by Automated count 2.08 10*6/uL 4.6- 6.1 L [facility] Hemoglobin [Mass/volume] in Blood 8.0 g/dL 13.5-18 L [facility] Hematocrit [Volume Fraction] of Blood by Automated count 23.3 % 4 1-53 L [facility] Erythrocyte mean corpuscular volume [Entitic volume] b y Automated count 112.1 fL 80-96 H [facility] Erythrocyte mean corpuscular hemoglobin [Entitic mass] by Automated count 38.7 pg 27-33 H [facility] Erythrocyte mean corpuscular hemoglobin concentration [Mass/volume] by Automated count 34.5 g/dL 32.0-36.0 [facility] E[facility]th[facility] distribution width [Ratio] by Automated count 20.8 % 11.5-14.5 H [facility] Platelets [#/volume] in Blood by Automated count 174 10*3/uL 150-400 [facility] Differential cell count method - Blood [facility] Neutrophils/100 leukocytes in Blood by Automated count 61 % [facility] Lymphocytes/100 leukocytes in Blood by Automated count 17 % [facility] Monocytes/100 leukocytes in Blood by Automated count 20 % [facility] Eosinophils/100 leukocytes in Blood by Automated count 2 % [facility] Basophils/100 leukocytes in Blood by Automated count 0 % [facility] Neutrophils [#/volume] in Blood by Automated count 3.89 10*3/uL 1.8-7 .0 [facility] Lymphocytes [#/volume] in Blood by Automated count 1.07 10*3/uL 1.2-4 .0 L [facility] Monocytes [#/volume] in Blood by Automated count 1.24 10*3/uL 0-0.8 H [facility] Eosinophils [#/volume] in Blood by Automated count 0.11 10*3/uL 0-0.5 [facility] Basophils [#/volume] in Blood by Automated count 0.03 10*3/uL 0-0.2 [facility] Nucleated erythrocytes/100 leukocytes [Ratio] in Blood by Automated count 0 /100{WBCs} 0-0 [facility] ID Date Data Source [id number] 01/20/2021 09:48:06 AM T [facility] Name Value Range Interpretation Code Description Data Irish rce(s) Supporting Document(s) Albumin [Mass/volume] in Serum or Plasma by Bromocresol green (BCG) dye binding method 4.0 g/dL 3.5-5.2 [facility] Bilirubin.total [Mass/volume] in Serum or Plasma 0.2 mg/dL <1.2 [facility] Calcium [Mass/volume] in Serum or Plasma 8.9 mg/dL 8.6-10.0 [facility] Chloride [Moles/volume] in Serum or Plasma 104 mmol/L 98-107 [facility] Creatinine [Mass/volume] in Serum or Plasma 1.29 mg/dL 0.70-1.20 H [facility] Glucose [Mass/volume] in Serum or Plasma 91 mg/dL 70-140 [facility] Alkaline phosphatase [Enzymatic activity/volume] in Serum or Plasma 98 U/L 40-129 [facility] Potassium [Moles/volume] in Serum or Plasma 4.4 mmol/L 3.4-5.1 [facility] Protein [Mass/volume] in Serum or Plasma 6.5 g/dL 6.4-8.3 [facility] Sodium [Moles/volume] in Serum or Plasma 138 mmol/L 136-145 [facility] Aspartate aminotransferase [Enzymatic activity/volume] in Serum or Plasma 14 U/L <40 [facility] Urea nitrogen [Mass/volume] in Serum or Plasma 18 mg/dL 6-20 [facility] Osmolality of Serum or Plasma by calculation 287 mosm/kg 275-300 [facility] Creatinine/Urea nitrogen [Mass Ratio] in Serum or Plasma 14 [facility] Bicarbonate [Moles/volume] in Serum 22 mmol/L 22-29 [facility] Alanine aminotransferase [Enzymatic activity/volume] in Seru m or Plasma 12 U/L <41 [facility] Anion gap 3 in Serum or Plasma 11 mmol/L 8-15 [facility] Glomerular filtration rate/1.73 sq M pre dicted among non-blacks [Volume Rate/Area] in Serum or Plasma by Creatinine-based formula (MDRD) 61 mL/min/1.73m2 >60 [facility] Glomerular filtration rate/1.73 sq M pre dicted among blacks [Volume Rate/Area] in Serum or Plasma by Creatinine-based formula (MDRD) 71 mL/min/1.73m2 >60 [facility] ID Date Data Source [id number] 01/07/2021 06:46:37 AM [facility] Name Value Range Interpretation Code Description Data Irish rce(s) Supporting Document(s) ABO and Rh group [Type] in Blood [facility] Blood group antibody screen [Presence] in Serum or Plasma [facility] Performed at [facility], [place] [employer] Blood bank comment [facility] ID Date Data Source [id number] 01/06/2021 09:19:55 AM [facility] Name Value Range Interpretation Code Description Data Irish rce(s) Supporting Document(s) Leukocytes [#/volume] in Blood by Automated count 6.4 10*3/uL 4-10 [facility] Erythrocytes [#/volume] in Blood by Automated count 2.23 10*6/uL 4.6- 6.1 L [facility] Hemoglobin [Mass/volume] in Blood 8.5 g/dL 13.5-18 L [facility] Hematocrit [Volume Fraction] of Blood by Automated count 24.7 % 4 1-53 L [facility] Erythrocyte mean corpuscular volume [Entitic volume] b y Automated count 110.3 fL 80-96 H [facility] Erythrocyte mean corpuscular hemoglobin [Entitic mass] by Automated count 38.1 pg 27-33 H [facility] Erythrocyte mean corpuscular hemoglobin concentration [Mass/volume] by Automated count 34.5 g/dL 32.0-36.0 [facility] Erythrocyte distribution width [Ratio] by Automated count 19.1 % 11.5-14.5 H [facility] Platelets [#/volume] in Blood by Automated count 156 10*3/uL 150-400 [facility] Differential cell count method - Blood [facility] Neutrophils/100 leukocytes in Blood by Automated count 61 % [facility] Lymphocytes/100 leukocytes in Blood by Automated count 18 % [facility] Monocytes/100 leukocytes in Blood by Automated count 19 % [facility] Eosinophils/100 leukocytes in Blood by Automated count 2 % [facility] Basophils/100 leukocytes in Blood by Automated count 0 % [facility] Neutrophils [#/volume] in Blood by Automated count 3.83 10*3/uL 1.8-7 .0 [facility] Lymphocytes [#/volume] in Blood by Automated count 1.18 10*3/uL 1.2-4 .0 L [facility] Monocytes [#/volume] in Blood by Automated count 1.24 10*3/uL 0-0.8 H [facility] Eosinophils [#/volume] in Blood by Automated count 0.15 10*3/uL 0-0.5 [facility] Basophils [#/volume] in Blood by Automated count 0.03 10*3/uL 0-0.2 [facility] Nucleated erythrocytes/100 leukocytes [Ratio] in Blood by Automated count 0 /100{WBCs} 0-0 [facility] ID Date Data Source [id number] 01/06/2021 10:01:34 AM EDT [facility] Name Value Range Interpretation Code Description Data Irish rce(s) Supporting Document(s) Albumin [Mass/volume] in Serum or Plasma by Bromocresol green (BCG) dye binding method 4.1 g/dL 3.5-5.2 [facility] al Bilirubin.total [Mass/volume] in Serum or Plasma 0.2 mg/dL <1.2 [facility] Calcium [Mass/volume] in Serum or Plasma 9.2 mg/dL 8.6-10.0 [facility] Chloride [Moles/volume] in Serum or Plasma 107 mmol/L 98-107 [facility] Creatinine [Mass/volume] in Serum or Plasma 1.39 mg/dL 0.70-1.20 H [facility] Glucose [Mass/volume] in Serum or Plasma 93 mg/dL 70-140 [facility] Alkaline phosphatase [Enzymatic activity/volume] in Serum or Plasma 97 U/L 40-129 [facility] Potassium [Moles/volume] in Serum or Plasma 4.0 mmol/L 3.4-5.1 [facility] Protein [Mass/volume] in Serum or Plasma 6.3 g/dL 6.4-8.3 L [facility] Sodium [Moles/volume] in Serum or Plasma 141 mmol/L 136-145 [facility] Aspartate aminotransferase [Enzymatic activity/volume] in Serum or Plasma 15 U/L <40 [facility] Urea nitrogen [Mass/volume] in Serum or Plasma 18 mg/dL 6-20 [facility] Osmolality of Serum or Plasma by calculation 294 mosm/kg 275-300 [facility] Creatinine/Urea nitrogen [Mass Ratio] in Serum or Plasma 13 [facility] Bicarbonate [Moles/volume] in Serum 22 mmol/L 22-29 [facility] Alanine aminotransferase [Enzymatic activity/volume] in Seru m or Plasma 15 U/L <41 [facility] Anion gap 3 in Serum or Plasma 12 mmol/L 8-15 [facility] Glomerular filtration rate/1.73 sq M pre dicted among non-blacks [Volume Rate/Area] in Serum or Plasma by Creatinine-based formula (MDRD) 56 mL/min/1.73m2 >60 L [facility] Glomerular filtration rate/1.73 sq M pre dicted among blacks [Volume Rate/Area] in Serum or Plasma by Creatinine-based formula (MDRD) 65 mL/min/1.73m2 >60 [facility] ID Date Data Source [id number] 12/29/2020 03:23:40 PM EDT [facility] Name Value Range Interpretation Code Description Data Riish rce(s) Supporting Document(s) Progress Note [facility] TZQAIb8zZqTRBrBj74/VGLpmUJJtv8BrNAfcGDw7HAeoVWYvF9AxNZV2cT1eAFP9LWpCMtSqMxFvLpU4 [facility] HzZzsTAbDmKDIyUxkVMiJqFSxkFloxsEJwMU2KaKU3CPGgC72kSUPcQKWmK3AwWGG2BSy+Ja2UEAQcsB EyRH6EHhsR2A70x4kRVx//cKqTJexzFJsC6qtEGIj84+Lng3dZLpsF/EOtzEOGE0qHpmxm8p0trZvC5q outmrjShQoAVDCUd29JgmpjwSmbZy/c2kt1EwTxBh/ WS6SZ3fhDrJx/8O77KirkszyC+tEXnCsyAqLF/RX177+wpO+1u8aIZ8x9u/fk0YIJS3jw52V5NzChwXN TUdpZxtjnAVtlfB39hVv+yPlRpYf++7Hhw9V/1f1vK/geNIcR3WnR0C3TsqjAwi8sVqv5kE0hRXmyWOr USt7alHzm8GDll5pv19F4uwZxz6r2EOCzhPYTn0dTv wSnJ3lb4lCKYiKlgNuP853Nk6FuwFRKc5J7QEVMlntBTpbN/QvppvWPWUchQQ3T7luUvz2A9uUsci5Wh aOBaKMAuZq4yurxNmegdURMrLzagDi4Sqc39C+WpcEm/m3QAfRaUEDmdWM1Q1et8oeZPa9O+RDHyZjQ4 i279F5YJs1eUa29sb4tHCFm1CV7+A1Uy2SL08XyaR2 [file] ICAgICAgICAgICAgICAgICAgICAgICAgICAgICAgIC AgICAgICAgICAgICAgICAgICANCiAgICAgICAgICAgICAgICAgICAgICAgICAgICAgICAgICAgICAgIC AgICAgICAgICAgICAgICAgICAgICAgICAgICAgICAgICAgICAgICAgICAgICAgICAgICAgICAgICAgIC ANCiAgICAgICAgICAgICAgICAgICAgICAgICAgICAg ICAgICAgICAgICAgICAgICAgICAgICAgICAgICAgICAgICAgICAgICAgICAgICAgICAgICAgICAgICAg ICAgICAgICAgICANCiAgICAgICAgICAgICAgICAgICAgICAgICAgICAgICAgICAgICAgICAgICAgICAg ICAgICAgICAgICAgICAgICAgICAgICAgICAgICAgIC AgICAgICAgICAgICAgICAgICAgICANCiAgICAgICAgICAgICAgICAgICAgICAgICAgICAgICAgICAgIC AgICAgICAgICAgICAgICAgICAgICAgICAgICAgICAgICAgICAgICAgICAgICAgICAgICAgICAgICAgIC AgICANCiAgICAgICAgICAgICAgICAgICAgICAgICAg ICAgICAgICAgICAgICAgICAgICAgICAgICAgICAgICAgICAgICAgICAgICAgICAgICAgICAgICAgICAg ICAgICAgICAgICAgICANCiAgICAgICAgICAgICAgICAgICAgICAgICAgICAgICAgICAgICAgICAgICAg ICAgICAgICAgICAgICAgICAgICAgICAgICAgICAgIC AgICAgICAgICAgICAgICAgICAgICAgICANCiAgICAgICAgICAgICAgICAgICAgICAgICAgICAgICAgIC AgICAgICAgICAgICAgICAgICAgICAgICAgICAgICAgICAgICAgICAgICAgICAgICAgICAgICAgICAgIC AgICAgICANCiAgICAgICAgICAgICAgICAgICAgICAg ICAgICAgICAgICAgICAgICAgICAgICAgICAgICAgICAgICAgICAgICAgICAgICAgICAgICAgICAgICAg ICAgICAgICAgICAgICAgICANCiAgICAgICAgICAgICAgICAgICAgICAgICAgICAgICAgICAgICAgICAg ICAgICAgICAgICAgICAgICAgICAgICAgICAgICAgIC AgICAgICAgICAgICAgICAgICAgICAgICAgICANCjw/fFQqT9dxzEMigjP0I5ktOi2CLl7QWU9gw6FrIN IhUBatkpCrIgwQRsAvAXNwKhgGSuu2ECcoEG0LbIOaK6TnW5TjPYlfUQ0SJORgYGXfgAHkDYRqXGAdRt W0EOUlNOefVA1PkADaZCpkRHKaMCIgHgRbRNWvHHNh UPYxXEShDBMMMGCfCKQgDkJyCFWvRNJlWEnpDXZDTP8PCyHlT4DwvL30GUbHXw2+DQplbmRvYmoNCjM3 SWAuq1AnJBd9IZ3INZEdHdled8PwAlldLRSKPRqkIL6NHLC9VTP2AGUhRz3JWMSdH443qwQrZY1JSv6A SbVzJW7jcg0ELrabRHGyEawERfu6WPljZU7QlORgBL fFyv8btcSgpkDSe3QfhxTfxCOGAIOtBUTWUEOhyhXoYAcgRvCwQBWsQs9nId3jGUUbJBR6DfNiOBWHHY 3XFTRdHDCcbPFsKAYwBHKLAJ1JGMvgTZS9ZREosvRmsDNkGOhnTP0XSBCcmiBzBztvFBTYOWg+Pg0KZW 9ug5JuAFxhBUZmIB8zjz0ANAeTGuKnE9X8iQTpC0C9 NLkbIl8WPJKiNOByAzYbFYHLWGqpDB0LPI2kijF9DS5UuEKdPGNkRVKjcBKwCSg3Y05ueIAgGIrfSA4Y ICA+Zeferino+Eq0PVMSnRYDiOBHdDoXeHPASOkCkM7LcB8PJf2AoP7UpRB82vJmpsvQvMAadXB4BGO1mKNFj QQWRAT5VqVRfqN6forTyGgPrBBMIXwVrL70gdBUsDQ KkEXQ4NHGxVh3QZDXiO7PjqbLfpKhpbzGrMYWcXXLQJU8DXJpayaJjcRBhqAnaWP25fLlpTO0JXv9NYc MwPL3dxk4HyWCjNt2YDOD8XV4GICUmAKKtKVBjXSG1PHAgLbTrRKbfDWHzGMCzAHC3DPNwBJAfFR4CEy DtHTQePUF6SWteOFAtUBCneq0OYPEaQPD8PnY0WQEg KRZaUQApQThhGJCvTYVcOKD6CYWoWILrPK4IYsWzDSHiCTRvBOAwVNAgZATyqx7OQGAkNZTpURL0SSFl PFMpCQTyPFbrKVXmHRN1NNQtYUFxXDFaKX2XCnQxHUDuWPdjYpBlYNByCRQjrt8XXDIwWUQhFKf5NCWg DOFzMBHfWOjxMZLxIMUxLCz3MKKsBOBiQK5FMnJdGB DzFBD2YEvfBGFgLSViil5XPNFkSFMpAWevKVUgMHTnESBzQEjvWXOzHOY4GFJ8WXAsLNRiCR0HGmPkIC ZxHPenJxRzHHKaBFCetv3TEZAjBUGrFeXpQoZsDMYnLWHyWRbqULVbJSQvVFEyMUAdQUUcYM3QRwJdWJ WeZeG1ACObSVHdVDWdau6OWPLlYREiKgzcTIXsLWVh FISxUOhnMNYbDGC7PvzcXMNiVEUaUB1VFoZcUINcQqA9BksdKWKiLZHxcs6DGDJoENRqKQL4FVPcCOYa UFOiDAnzIYAfQIR5GUOmUILlXWAxGI5OZiMlTYAxYaLbEuKwBMNySEVxye7NQFAiJFReWmQmTNOcRJRo WBQoFDjxHERaDGA3PTVuVMKvICCdAP9QFaOrETKgGy nzWgQxXBLgUSDjoc4WAXKuSRDoUIH8IMNzFIThPDBoLPafWTUiPEC3ZyP6CWAuTHLbAW3UOaEsPPDcLh t8LvStUNRoWDLnrp8MONIvYBReFZfgODBwBVFgLPNjJEfuNEPmABUaNSAgFVOeBOHzXD3OWiWoIYSzXZ OfAEXeUWTmHWBjsb8VKWPjTCW2CTAtGHFgYYQrEBNg ENplJDCaWDPvBkB4BIKaQJWxTM0SAwWyQJInRWX5XfTrCLJyZXBspc2FEORpPNL9UHlzCVHcVDWoZSJf ITjqCRXkZFXzLjh2HXLqGDGuHR4USdOoZREbBRN0WEnoTTCcQHVubj5DHTUlDIJ7WyNmMwIyZGIbQKLn GLs5vcPwkEDzPGg6ZN5CV9OctjGfPNQJTk8Au823MZ G8VGAgYu5HJ1kdUm4xVPKpWISHNz6SZRy1XRJkWXPbW3U1PLB5VXWoGSQ9LsTrLOZbGgo1BGLyWHI+ID prJDI6PjFzFCouVIJmXjQ5Lnw7ZTAxWVCfDtXwEyXwCA8vKDTIRx8+DQpzdGFydHhyZWYNCjQzODUxDQ qqXHZRXr3G ID Date Data Source [id number] 12/23/2020 08:38:58 AM EDT [facility] Name Value Range Interpretation Code Description Data Irish rce(s) Supporting Document(s) Leukocytes [#/volume] in Blood by Automated count 7.4 10*3/uL 4-10 [facility] Erythrocytes [#/volume] in Blood by Automated count 2.53 10*6/uL 4.6- 6.1 L [facility] Hemoglobin [Mass/volume] in Blood 9.6 g/dL 13.5-18 L [facility] Hematocrit [Volume Fraction] of Blood by Automated count 27.6 % 4 1-53 L [facility] Erythrocyte mean corpuscular volume [Entitic volume] b y Automated count 109.1 fL 80-96 H [facility] Erythrocyte mean corpuscular hemoglobin [Entitic mass] by Automated count 37.9 pg 27-33 H [facility] Erythrocyte mean corpuscular hemoglobin concentration [Mass/volume] by Automated count 34.8 g/dL 32.0-36[facility]0 [facility] distribution width [Ratio] by Automated count 19.1 % 11.5-14.5 H [facility] Platelets [#/volume] in Blood by Automated count 146 10*3/uL 150-400 L [facility] Differential cell count method - Blood [facility] Neutrophils/100 leukocytes in Blood by Automated count 65 % [facility] Lymphocytes/100 leukocytes in Blood by Automated count 15 % [facility] Monocytes/100 leukocytes in Blood by Automated count 18 % [facility] Eosinophils/100 leukocytes in Blood by Automated count 2 % [facility] Basophils/100 leukocytes in Blood by Automated count 0 % [facility] Neutrophils [#/volume] in Blood by Automated count 4.80 10*3/uL 1.8-7 .0 [facility] Lymphocytes [#/volume] in Blood by Automated count 1.07 10*3/uL 1.2-[address] [facility] Monocytes [#/volume] in Blood by Automated count 1.29 10*3/uL 0-0.8 H [facility] Eosinophils [#/volume] in Blood by Automated count 0.16 10*3/uL 0-0.5 [facility] Basophils [#/volume] in Blood by Automated count 0.03 10*3/uL 0-0.2 [facility] Nucleated erythrocytes/100 leukocytes [Ratio] in Blood by Automated count 0 /100{WBCs} 0-0 [facility] ID Date Data Source [id number] 12/23/2020 09:11:04 AM EDT [facility] Name Value Range Interpretation Code Description Data Irish rce(s) Supporting Document(s) Albumin [Mass/volume] in Serum or Plasma by Bromocresol green (BCG) dye binding method 4.0 g/dL 3.5-5.2 [facility] Bil[facility].total [Mass/volume] in Serum or Plasma 0.3 mg/dL <1.2 [facility] Calcium [Mass/volume] in Serum or Plasma 9.4 mg/dL 8.6-10.0 [facility] Chloride [Moles/volume] in Serum or Plasma 105 mmol/L 98-107 [facility] Creatinine [Mass/volume] in Serum or Plasma 1.31 mg/dL 0.70-1.20 H [facility] Glucose [Mass/volume] in Serum or Plasma 82 mg/dL 70-140 [facility] Alkaline phosphatase [Enzymatic activity/volume] in Serum or Plasma 101 U/L 40-129 [facility] Potassium [Moles/volume] in Serum or Plasma 4.3 mmol/L 3.4-5.1 [facility] Protein [Mass/volume] in Serum or Plasma 6.7 g/dL 6.4-8.3 [facility] Sodium [Moles/volume] in Serum or Plasma 136 mmol/L 136-145 [facility] Aspartate aminotransferase [Enzymatic activity/volume] in Serum or Plasma 16 U/L <40 [facility] Urea nitrogen [Mass/volume] in Serum or Plasma 19 mg/dL 6-20 [facility] Osmolality of Serum or Plasma by calculation 284 mosm/kg 275-300 [facility] Creatinine/Urea nitrogen [Mass Ratio] in Serum or Plasma 15 [facility] Bicarbonate [Moles/volume] in Serum 23 mmol/L 22-29 [facility] Alanine aminotransferase [Enzymatic activity/volume] in Seru m or Plasma 17 U/L <41 [facility] Anion gap 3 in Serum or Plasma 9 mmol/L 8-15 [facility] Glomerular filtration rate/1.73 sq M pre dicted among non-blacks [Volume Rate/Area] in Serum or Plasma by Creatinine-based formula (MDRD) 60 mL/min/1.73m2 >60 L [facility] Glomerular filtration rate/1.73 sq M pre dicted among blacks [Volume Rate/Area] in Serum or Plasma by Creatinine-based formula (MDRD) 70 mL/min/1.73m2 >60 [facility] ID Date Data Source [id number] 12/19/2020 12:32:10 AM EDT [facility] Name Value Range Interpretation Code Description Data Irish rce(s) Supporting Document(s) Progress Note [facility] ZZBQMe4hAjCAYlVg96/YCFvxOPRgu2VgUUgeIAk9WUkaKYOrJ9MiIOY7uC6iWRT1WJpEZyTkRxMkNkM8 lbm FzCoaQLkLeXZLlXmjAYsBkIYblPzgsnMWjEC9CfZT6OXRaU10jCDSlYRYuT7HyLZQ9Bfw+Ui9UAIUrfM QgAZ3WKqtN8C7eccs6Ts7wys2YiWNoFAC8yBBd4aElsXE1llKfinm8aRimRouaLSYsHWFI7hW/Weber/t8V [file] BsL2WBYzZoH7SbOnCZV9BPjcVR2sBLQQPg7+XNfqqHHvoGnnHKHEMeV9ZVPmYVauUTDOYw2O ID Date Data Source [id number] 12/19/2020 12:32:05 AM EDT [facility] Name Value Range Interpretation Code Description Data Irish rce(s) Supporting Document(s) Progress Note [facility] BAIGVc4uGsNCBlCe79/STXdvHMMoh9AvOGsySQm3AEjmCNIaX8HhFYB1zF3lCTT9MVcDAqQqHwZnOoJ2 lbm [file] NmNWJkZjM+AP1yGCz+Dd0Db2YcliE6wwMeXHf0ExUuOT3RJQWWF4VPSy== ID Date Data Source [id number] 12/11[facility]2020 [facility]58[facility] Name Value Range Interpretation Code Description Data Irish rce(s) Supporting Document(s) Progress Note [facility] TONBVs3fMbBVMyTo24/RNEitJVMkv4CzLIqaBJg5MFcbBJHpY7PrPNC0pC9fXFK0SUuWAcCsUzNlLwXv lbm [file] QNKXDo8I ID Date Data Source [id number] 12/11/2020 10:58:13 PM EDT [facility] Name Value Range Interpretation Code Description Data Irish rce(s) Supporting Document(s) Progress Note [facility] ADXUEb0fAuEWHjFj44/OAQnuOKUex5NpPDggTDo4UTstQGGpT9ZtIWJ4aR7eALA2VNpHPnXaMuHmNkZg lbm [file] AgICAgICAgICAgICAgICAgICAgICAgICAgICAgICAgICAgICAgICAgICAgICAgICAgICAgICAgICAgIC AgICAgICAgICAgICAgICAgICAgICAgDQogICAgICAgICAgICAgICAgICAgICAgICAgICAgICAgICAgIC AgICAgICAgICAgICAgICAgICAgICAgICAgICAgICAg ICAgICAgICAgICAgICAgICAgICAgICAgICAgICAgICAgDQogICAgICAgICAgICAgICAgICAgICAgICAg ICAgICAgICAgICAgICAgICAgICAgICAgICAgICAgICAgICAgICAgICAgICAgICAgICAgICAgICAgICAg ICAgICAgICAgICAgICAgDQogICAgICAgICAgICAgIC AgICAgICAgICAgICAgICAgICAgICAgICAgICAgICAgICAgICAgICAgICAgICAgICAgICAgICAgICAgIC AgICAgICAgICAgICAgICAgICAgICAgICAgDQogICAgICAgICAgICAgICAgICAgICAgICAgICAgICAgIC AgICAgICAgICAgICAgICAgICAgICAgICAgICAgICAg ICAgICAgICAgICAgICAgICAgICAgICAgICAgICAgICAgICAgDQogICAgICAgICAgICAgICAgICAgICAg ICAgICAgICAgICAgICAgICAgICAgICAgICAgICAgICAgICAgICAgICAgICAgICAgICAgICAgICAgICAg ICAgICAgICAgICAgICAgICAgDQogICAgICAgICAgIC AgICAgICAgICAgICAgICAgICAgICAgICAgICAgICAgICAgICAgICAgICAgICAgICAgICAgICAgICAgIC AgICAgICAgICAgICAgICAgICAgICAgICAgICAgDQogICAgICAgICAgICAgICAgICAgICAgICAgICAgIC AgICAgICAgICAgICAgICAgICAgICAgICAgICAgICAg ICAgICAgICAgICAgICAgICAgICAgICAgICAgICAgICAgICAgICAgDQogICAgICAgICAgICAgICAgICAg ICAgICAgICAgICAgICAgICAgICAgICAgICAgICAgICAgICAgICAgICAgICAgICAgICAgICAgICAgICAg ICAgICAgICAgICAgICAgICAgICAgDQogICAgICAgIC AgICAgICAgICAgICAgICAgICAgICAgICAgICAgICAgICAgICAgICAgICAgICAgICAgICAgICAgICAgIC EnKWJoTBJvRJFxYSPxPYBrIIZuYTXnKREfSEMgVHVrMXx9K1inETTsARYaLW0nENz2Qx7+DQoNCmVuZH X6lxOwrP5NJV1ey1DbZQwuOVGqi0PiKMl2WS8YLGWu UWjeXO8DAMvckg3TIUYbAEQjxWMWt5blQkNeSZR1VKMwWzibDE9CTMGbV1hutyPkBUFaBIQYNGfsMYGV RKbwOCMBWMKtEPIoOjNkQsOyYOItHGJbFYSMPFJ4UJNiJaFfOUluOT8Ou0AjkHR9BUm+De7NZF4ap9Qp MIjtRWAwSF8rco8IRUpIWdHuJ9NkiiU5KGM4VFDuMu 5VGGNdUQFddHJkQYGhCVZEJbCuF5QsoV28FQJNDs2+ODegerUxSaiGRpA7YATeo5NgIWo2GP2VCIAsGG e5rHQzMNHtY5Opc0XxXw86LSNeArakPDU9gfHjWnSPKR8ki7OsFI7VDAD4FOHnMX4mRTVpEPZ9YoJ4GI DLMB5ZQPMgZJYfaBKqOKDuYQEXBI3OROpxOIJ6GAHk dvGtzDGzDNspYP3FOYQibcQlXwLyCITMXDp+Al6CFI6vh8JsOQhdFoOjBQ4qoj3EGDeYNeCiW1M5jQDn T0S3QPjhOh7VQNBsGWVnAaIsQNLVMScrKE7YYU9hdrP7US8VkGCtQYLkKOYicYKvFCo8Q80hqXNkKRzv KL5WVWA+Zeferino+Jm2AQDLdDSKoZVWiOqCzKKLDVtPyG2 CmK6PXr2EiR7NwJG35jClwhaMzUNapIV4DVF6fAIZhNJKIOH9YhYTfbE9nxeAcQOHfSUKPVpXlW39awF ZmYQZsNDEvTCAxGk5RFVTpQ8UkzlNnyPvagvWeJWAeDRECOH4OPPalcdCscZRieXrrRY01lGxbAI4FUh 8YQhLfJG4lqm3GnBNwYa0DWPCpAf3JVAGzYNLxTOPx IUZ9IWVpUmWgZVjoAVQvTPSlBPP4JEDbYTXxWW0DYtJsACPpIRW7PfSeCZDfRLLscp9WNOKrAXW5Qgyy BzBkWUIzGTLiOKtiWTJlPJYgEFQ9SRQgMMFwHX6DLbGpYGHjBZJgXJrgLVBxUUCipt4WWMXaIBQqVYFi OsKaIMUlPFQuBSxgNHNyFLU5CLLtGQYbSMBxQA1JMl VxOCWxNMyqAtUdBEHkMQKioh8XLAOrYXRsJQydKPVyKMImERIbIPhyMQWzFGJxISQ6PDAuFAZxEI7OTd BtZEPkUHV0ZLZnIFIsBHFgwe4XJTFkCTYlDNR1WAXcAHQwPENfQYfcPROrHLU0QoL1EOZuKJXbTW3CSk UnWMUyLEv2NPGaTMThZJGhof4LDYPsMBJnCwM7SyOr KYNwPVZgGDujGHJvVQMyXnvvLOEyDLXqSE4XRiZeMJQxMcQiNYOiSHBgVBYxjw9OCFJxPVXqTJZ1HGIz RUUcMEPjKAfyEOGjTMY5XGObDTBvJLScNI5DVjGcLYHeEgF4JOayFIYeYAKziq8CUULkVLZfCMuxGGWh KIYdNMZlPYdpAWPfBBN9GOiaXKEmAXOiJS0KGmHnMP ZaBcgdWLLeTQRuQZPgmo2DHGPfWUKbGhM9XFAfQEZvMSVlULcdCGQtFHQ8HwRbLBQhNHTlXF2SGaKaAN GoAzabCnLbHSAcBYYurr3UNTXfCDDxUMY9HEIpCJRjRXQnKRsyDKFpQIJ1VOi0SWHsZCKlLF6VUzFpWW QvCsi9TNCoQIFsFOQojo0VQLFyBAN8XWM3CDYcJLEq PIKeCCowKDLyLFKjJsixQLYdAXXyJS9ZKsYrDWHnVXL9GQSbNFBbTHYvzo5RICMeKUY5NGD7CdPfOWPq MLUyRFnwXFEtVAEhHQE4OPWcXMCwAR3OYtAeNURlOTZ9TDXzCVWfVQQujb0PCLUyBGU8BpA9GNMnKCGb XLDmFVx7ocDanZShLIt1OI5MG4GsscJqTqyNSj2Px7 67PJR4XQDpTc4NY8lxRk4tCUHuFGYUMi0FPAq2RfRbUmYbW0MbRhdoM5Q8SBO9QCeoMdO4PYPwD9Z0Hg Q+JVffPQGxYJK5IyEtBWD0XHg7PQe0TdWnGPubD7N0OvFqER8iWFCUGr2+DQpzdGFydHhyZWYNCjQzMz U5IOluRQDISf8I ID Date Data Source [id number] 12/10/2020 10:39:05 PM EDT [facility] Name Value Range Interpretation Code Description Data Irish rce(s) Supporting Document(s) Progress Note [facility] APLTJy4eSiECWkQd90/FMDppFRLqz4IuNZxsDQd3YNzvDYXdO7YaDXF0nT3hRQZ4UZzXEgGdZdWsLhBy lbm [file] RmDA4TAw2QQbK7CRA4uEErOc0RAoYuNCYHBgZcAV8MQLg= ID Date Data Source [id number] 12/10/2020 10:39:00 PM EDT [facility] Name Value Range Interpretation Code Description Data Irish rce(s) Supporting Document(s) Progress Note [facility] IRKCYa8qWfYMRgYz18/XKDcjHNUie7VsMQkzRGr2PRlaBVMgC7RtSWB3oZ7xHEO8TRyWPkCdSmUlAkGk lbm [file] deVUOuKhItZG5EIs6QNfC6USB6fEWnHz9BNZPyGFjWRoVcRK7VKPe= ID Date Data Source [id number] 2020 08:30:20 AM EDT [facility] Name Value Range Interpretation Code Description Data Irish e(s) Supporting Document(s) Leukocytes [#/volume] in Blood by Automated count 5.1 10*3/uL 4-10 [facility] Erythrocytes [#/volume] in Blood by Automated count 2.69 10*6/uL 4.6- 6.1 L [facility] Hemoglobin [Mass/volume] in Blood 10.0 g/dL 13.5-18 L [facility] Hematocrit [Volume Fraction] of Blood by Automated count 28.8 % 4 1-53 L [facility] Erythrocyte mean corpuscular volume [Entitic volume] b y Automated count 107.1 fL 80-96 H [facility] Erythrocyte mean corpuscular hemoglobin [Entitic mass] by Automated count 37.2 pg 27-33 H [facility] Erythrocyte mean corpuscular hemoglobin concentration [Mass/volume] by Automated count 34.7 g/dL 32.0-36.0 [facility] Erythrocyte distribution width [Ratio] by Automated count 20.0 % 11.5-14.5 H [facility] Platelets [#/volume] in Blood by Automated count 301 10*3/uL 150-400 [facility] Differential cell count method - Blood [facility] Neutrophils/100 leukocytes in Blood by Automated count 58 % [facility] Lymphocytes/100 leukocytes in Blood by Automated count 18 % [facility] Monocytes/100 leukocytes in Blood by Automated count 21 % [facility] Eosinophils/100 leukocytes in Blood by Automated count 2 % [facility] Basophils/100 leukocytes in Blood by Automated count 1 % [facility] Neutrophils [#/volume] in Blood by Automated count 2.98 10*3/uL 1.8-7 .0 [facility] Lymphocytes [#/volume] in Blood by Automated count 0.91 10*3/uL 1.2-4 .0 L [facility] Monocytes [#/volume] in Blood by Automated count 1.10 10*3/uL 0-0.8 H [facility] Eosinophils [#/volume] in Blood by Automated count 0.11 10*3/uL 0-0.5 [facility] Basophils [#/volume] in Blood by Automated count 0.03 10*3/uL 0-0.2 [facility] Nucleated erythrocytes/100 leukocytes [Ratio] in Blood by Automated count 0 /100{WBCs} 0-0 [facility] ID Date Data Source [id number] 2020 09:02:24 AM EDT [facility] Name Value Range Interpretation Code Description Data Irish rce(s) Supporting Document(s) Albumin [Mass/volume] in Serum or Plasma by Bromocresol green (BCG) dye binding method 3.9 g/dL 3.5-5.2 [facility] Bilirubin.total [Mass/volume] in Serum or Plasma 0.2 mg/dL <1.2 [facility] Calcium [Mass/volume] in Serum or Plasma 9.0 mg/dL 8.6-10.0 [facility] Chloride [Moles/volume] in Serum or Plasma 103 mmol/L 98-107 [facility] Creatinine [Mass/volume] in Serum or Plasma 1.30 mg/dL 0.70-1.20 H [facility] Glucose [Mass/volume] in Serum or Plasma 98 mg/dL 70-140 [facility] Alkaline phosphatase [Enzymatic activity/volume] in Serum or Plasma 109 U/L 40-129 [facility] Potassium [Moles/volume] in Serum or Plasma 4.3 mmol/L 3.4-5.1 [facility] Protein [Mass/volume] in Serum or Plasma 6.5 g/dL 6.4-8.3 [facility] Sodium [Moles/volume] in Serum or Plasma 138 mmol/L 136-145 [facility] Aspartate aminotransferase [Enzymatic activity/volume] in Serum or Plasma 16 U/L <40 [facility] Urea nitrogen [Mass/volume] in Serum or Plasma 25 mg/dL 6-20 H [facility] Osmolality of Serum or Plasma by calculation 291 mosm/kg 275-300 [facility] Creatinine/Urea nitrogen [Mass Ratio] in Serum or Plasma 19 [facility] Bicarbonate [Moles/volume] in Serum 25 mmol/L 22-29 [facility] Alanine aminotransferase [Enzymatic activity/volume] in Seru m or Plasma 13 U/L <41 [facility] Anion gap 3 in Serum or Plasma 10 mmol/L 8-15 [facility] Glomerular filtration rate/1.73 sq M pre dicted among non-blacks [Volume Rate/Area] in Serum or Plasma by Creatinine-based formula (MDRD) 61 mL/min/1.73m2 >60 [facility] Glomerular filtration rate/1.73 sq M pre dicted among blacks [Volume Rate/Area] in Serum or Plasma by Creatinine-based formula (MDRD) 70 mL/min/1.73m2 >60 [facility] ID Date Data Source [id number] 11/23/2020 08:43:20 AM EDT [facility] Name Value Range Interpretation Code Description Data Irish rce(s) Supporting Document(s) Leukocytes [#/volume] in Blood by Automated count 5.7 10*3/uL 4-10 [facility] Erythrocytes [#/volume] in Blood by Automated count 2.88 10*6/uL 4.6- 6.1 L [facility] Hemoglobin [Mass/volume] in Blood 10.4 g/dL 13.5-18 L [facility] Hematocrit [Volume Fraction] of Blood by Automated count 30.2 % 4 1-53 L [facility] Erythrocyte mean corpuscular volume [Entitic volume] b y Automated count 104.6 fL 80-96 H [facility] Erythrocyte mean corpuscular hemoglobin [Entitic mass] by Automated count 36.1 pg 27-33 H [facility] Erythrocyte mean corpuscular hemoglobin concentration [Mass/volume] by Automated count 34.5 g/dL 32.0-36.0 [facility] Erythrocyte distribution width [Ratio] by Automated count 19.7 % 11.5-14.5 H [facility] Platelets [#/volume] in Blood by Automated count 152 10*3/uL 150-400 [facility] Differential cell count method - Blood [facility] Neutrophils/100 leukocytes in Blood by Automated count 64 % [facility] Lymphocytes/100 leukocytes in Blood by Automated count 18 % [facility] Monocytes/100 leukocytes in Blood by Automated count 15 % [facility] Eosinophils/100 leukocytes in Blood by Automated count 2 % [facility] Basophils/100 leukocytes in Blood by Automated count 1 % [facility] Neutrophils [#/volume] in Blood by Automated count 3.63 10*3/uL 1.8-7 .0 [facility] Lymphocytes [#/volume] in Blood by Automated count 1.04 10*3/uL 1.2-4 .0 L [facility] Monocytes [#/volume] in Blood by Automated count 0.86 10*3/uL 0-0.8 H [facility] Eosinophils [#/volume] in Blood by Automated count 0.09 10*3/uL 0-0.5 [facility] Basophils [#/volume] in Blood by Automated count 0.04 10*3/uL 0-0.2 [facility] Nucleated erythrocytes/100 leukocytes [Ratio] in Blood by Automated count 0 /100{WBCs} 0-0 [facility] ID Date Data Source [id number] 11/23/2020 09:28:18 AM EDT [facility] Name Value Range Interpretation Code Description Data Irish rce(s) Supporting Document(s) Albumin [Mass/volume] in Serum or Plasma by Bromocresol green (BCG) dye binding method 3.7 g/dL 3.5-5.2 [facility] al Bilirubin.total [Mass/volume] in Serum or Plasma <1.2 [facility] Calcium [Mass/volume] in Serum or Plasma 8.5 mg/dL 8.6-10.0 L [facility] Chloride [Moles/volume] in Serum or Plasma 106 mmol/L 98-107 [facility] Creatinine [Mass/volume] in Serum or Plasma 1.21 mg/dL 0.70-1.20 H [facility] Glucose [Mass/volume] in Serum or Plasma 131 mg/dL 70-140 [facility] Alkaline phosphatase [Enzymatic activity/volume] in Serum or Plasma 108 U/L 40-129 [facility] Potassium [Moles/volume] in Serum or Plasma 4.0 mmol/L 3.4-5.1 [facility] Protein [Mass/volume] in Serum or Plasma 6.3 g/dL 6.4-8.3 L [facility] Sodium [Moles/volume] in Serum or Plasma 136 mmol/L 136-145 [facility] Aspartate aminotransferase [Enzymatic activity/volume] in Serum or Plasma 17 U/L <40 [facility] Urea nitrogen [Mass/volume] in Serum or Plasma 19 mg/dL 6-20 [facility] Osmolality of Serum or Plasma by calculation 286 mosm/kg 275-300 [facility] Creatinine/Urea nitrogen [Mass Ratio] in Serum or Plasma 15 [facility] Bicarbonate [Moles/volume] in Serum 23 mmol/L 22-29 [facility] Alanine aminotransferase [Enzymatic activity/volume] in Seru m or Plasma 25 U/L <41 [facility] Anion gap 3 in Serum or Plasma 8 mmol/L 8-15 [facility] Glomerular filtration rate/1.73 sq M pre dicted among non-blacks [Volume Rate/Area] in Serum or Plasma by Creatinine-based formula (MDRD) 67 mL/min/1.73m2 >60 [facility] Glomerular filtration rate/1.73 sq M pre dicted among blacks [Volume Rate/Area] in Serum or Plasma by Creatinine-based formula (MDRD) 77 mL/min/1.73m2 >60 [facility] ID Date Data Source [id number] 11/09/2020 08:37:53 AM EDT [facility] Name Value Range Interpretation Code Description Data Irish rce(s) Supporting Document(s) Leukocytes [#/volume] in Blood by Automated count 7.5 10*3/uL 4-10 [facility] Erythrocytes [#/volume] in Blood by Automated count 3.23 10*6/uL 4.6- 6.1 [facility] Hemoglobin [Mass/volume] in Blood 11.3 g/dL 13.5-18 L [facility] Hematocrit [Volume Fraction] of Blood by Automated count 33.5 % 4 1-53 [facility] Erythrocyte mean corpuscular volume [Entitic volume] b y Automated count 104.0 fL 80-96 H [facility] Erythrocyte mean corpuscular hemoglobin [Entitic mass] by Automated count 35.1 pg 27-33 H [facility] Erythrocyte mean corpuscular hemoglobin concentration [Mass/volume] by Automated count 33.8 g/dL 32.0-36.0 [facility] Erythrocyte distribution width [Ratio] by Automated count 20.9 % 11.5-14.5 H [facility] Platelets [#/volume] in Blood by Automated count 232 10*3/uL 150-400 [facility] Differential cell count method - Blood [facility] Neutrophils/100 leukocytes in Blood by Automated count 69 % [facility] Lymphocytes/100 leukocytes in Blood by Automated count 12 % [facility] Monocytes/100 leukocytes in Blood by Automated count 15 % [facility] Eosinophils/100 leukocytes in Blood by Automated count 3 % [facility] Basophils/100 leukocytes in Blood by Automated count 1 % [facility] Neutrophils [#/volume] in Blood by Automated count 5.21 10*3/uL 1.8-7 .0 [facility] Lymphocytes [#/volume] in Blood by Automated count 0.91 10*3/uL 1.2-4 .0 L [facility] Monocytes [#/volume] in Blood by Automated count 1.16 10*3/uL 0-0.8 H [facility] Eosinophils [#/volume] in Blood by Automated count 0.22 10*3/uL 0-0.5 [facility] Basophils [#/volume] in Blood by Automated count 0.04 10*3/uL 0-0.2 [facility] Nucleated erythrocytes/100 leukocytes [Ratio] in Blood by Automated count 0 /100{WBCs} 0-0 [facility] ID Date Data Source [id number] 11/09/2020 09:12:53 AM EDT [facility] Name Value Range Interpretation Code Description Data Irish rce(s) Supporting Document(s) Albumin [Mass/volume] in Serum or Plasma by Bromocresol green (BCG) dye binding method 3.7 g/dL 3.5-5.2 [facility] al Bilirubin.total [Mass/volume] in Serum or Plasma 0.2 mg/dL <1.2 [facility] Calcium [Mass/volume] in Serum or Plasma 8.7 mg/dL 8.6-10.0 [facility] Chloride [Moles/volume] in Serum or Plasma 104 mmol/L 98-107 [facility] Creatinine [Mass/volume] in Serum or Plasma 1.16 mg/dL 0.70-1.20 [facility] Glucose [Mass/volume] in Serum or Plasma 93 mg/dL 70-140 [facility] Alkaline phosphatase [Enzymatic activity/volume] in Serum or Plasma 120 U/L 40-129 [facility] Potassium [Moles/volume] in Serum or Plasma 4.0 mmol/L 3.4-5.1 [facility] Protein [Mass/volume] in Serum or Plasma 6.3 g/dL 6.4-8.3 L [facility] Sodium [Moles/volume] in Serum or Plasma 136 mmol/L 136-145 [facility] Aspartate aminotransferase [Enzymatic activity/volume] in Serum or Plasma 14 U/L <40 [facility] Urea nitrogen [Mass/volume] in Serum or Plasma 19 mg/dL 6-20 [facility] Osmolality of Serum or Plasma by calculation 285 mosm/kg 275-300 [facility] Creatinine/Urea nitrogen [Mass Ratio] in Serum or Plasma 16 [facility] Bicarbonate [Moles/volume] in Serum 22 mmol/L 22-29 [facility] Alanine aminotransferase [Enzymatic activity/volume] in Seru m or Plasma 13 U/L <41 [facility] Anion gap 3 in Serum or Plasma 10 mmol/L 8-15 [facility] Glomerular filtration rate/1.73 sq M pre dicted among non-blacks [Volume Rate/Area] in Serum or Plasma by Creatinine-based formula (MDRD) 70 mL/min/1.73m2 >60 [facility] Glomerular filtration rate/1.73 sq M pre dicted among blacks [Volume Rate/Area] in Serum or Plasma by Creatinine-based formula (MDRD) 81 mL/min/1.73m2 >60 [facility] ID Date Data Source [id number] 10/26/2020 03:37:16 PM EDT [facility] Name Value Range Interpretation Code Description Data Irish rce(s) Supporting Document(s) Progress Note [facility] [id number] lbm [file] [id number]== ID Date Data Source [id number] 10/26/2020 03:37:11 PM EDT [facility] Name Value Range Interpretation Code Description Data Irish rce(s) Supporting Document(s) Progress Note [facility] [id number] lbm [file] ID Date Data Source [id number] 10/26/2020 08:44:00 AM EDT [facility] Name Value Range Interpretation Code Description Data Irish rce(s) Supporting Document(s) Leukocytes [#/volume] in Blood by Automated count 7.8 10*3/uL 4-10 [facility] Erythrocytes [#/volume] in Blood by Automated count 3.75 10*6/uL 4.6- 6.1 L [facility] Hemoglobin [Mass/volume] in Blood 12.4 g/dL 13.5-18 L [facility] Hematocrit [Volume Fraction] of Blood by Automated count 38.0 % 4 1-53 L [facility] Erythrocyte mean corpuscular volume [Entitic volume] b y Automated count 101.4 fL 80-96 H [facility] Erythrocyte mean corpuscular hemoglobin [Entitic mass] by Automated count 33.0 pg 27-33 [facility] Erythrocyte mean corpuscular hemoglobin concentration [Mass/volume] by Automated count 32.6 g/dL 32.0-36.0 [facility] E[facility]throcyte distribution width [Ratio] by Automated count 21.2 % 11.5-14.5 H [facility] Platelets [#/volume] in Blood by Automated count 219 10*3/uL 150-400 [facility] Differential cell count method - Blood [facility] Neutrophils/100 leukocytes in Blood by Automated count 66 % [facility] Lymphocytes/100 leukocytes in Blood by Automated count 13 % [facility] Monocytes/100 leukocytes in Blood by Automated count 13 % [facility] Eosinophils/100 leukocytes in Blood by Automated count 7 % [facility] Basophils/100 leukocytes in Blood by Automated count 1 % [facility] Neutrophils [#/volume] in Blood by Automated count 5.23 10*3/uL 1.8-7 .0 [facility] Lymphocytes [#/volume] in Blood by Automated count 1.00 10*3/uL 1.2-4 .0 L [facility] Monocytes [#/volume] in Blood by Automated count 1.01 10*3/uL 0-0.8 H [facility] Eosinophils [#/volume] in Blood by Automated count 0.53 10*3/uL 0-0.5 H [facility] Basophils [#/volume] in Blood by Automated count 0.07 10*3/uL 0-0.2 [facility] Nucleated erythrocytes/100 leukocytes [Ratio] in Blood by Automated count 0 /100{WBCs} 0-0 [facility] ID Date Data Source [id number] 10/26/2020 09:09:42 AM EDT [facility] Name Value Range Interpretation Code Description Data Irish rce(s) Supporting Document(s) Albumin [Mass/volume] in Serum or Plasma by Bromocresol green (BCG) dye binding method 3.6 g/dL [facility].5[facility]5.2 [facility] Bil[facility].total [Mass/volume] in Serum or Plasma 0.2 mg/dL <1.2 [facility] Calcium [Mass/volume] in Serum or Plasma 8.6 mg/dL 8.6-10.0 [facility] Chloride [Moles/volume] in Serum or Plasma 103 mmol/L 98-107 [facility] Creatinine [Mass/volume] in Serum or Plasma 1.29 mg/dL 0.70-1.20 H [facility] Glucose [Mass/volume] in Serum or Plasma 100 mg/dL 70-140 [facility] Alkaline phosphatase [Enzymatic activity/volume] in Serum or Plasma 119 U/L 40-129 [facility] Potassium [Moles/volume] in Serum or Plasma 3.9 mmol/L 3.4-5.1 [facility] Protein [Mass/volume] in Serum or Plasma 6.2 g/dL 6.4-8.3 L [facility] Sodium [Moles/volume] in Serum or Plasma 134 mmol/L 136-145 L [facility] Aspartate aminotransferase [Enzymatic activity/volume] in Serum or Plasma 15 U/L <40 [facility] Urea nitrogen [Mass/volume] in Serum or Plasma 26 mg/dL 6-20 H [facility] Osmolality of Serum or Plasma by calculation 284 mosm/kg 275-300 [facility] Creatinine/Urea nitrogen [Mass Ratio] in Serum or Plasma 20 [facility] Bicarbonate [Moles/volume] in Serum 21 mmol/L 22-29 L [facility] Alanine aminotransferase [Enzymatic activity/volume] in Seru m or Plasma 12 U/L <41 [facility] Anion gap 3 in Serum or Plasma 10 mmol/L 8-15 [facility] Glomerular filtration rate/1.73 sq M pre dicted among non-blacks [Volume Rate/Area] in Serum or Plasma by Creatinine-based formula (MDRD) 62 mL/min/1.73m2 >60 [facility] Glomerular filtration rate/1.73 sq M pre dicted among blacks [Volume Rate/Area] in Serum or Plasma by Creatinine-based formula (MDRD) 72 mL/min/1.73m2 >60 [facility] ID Date Data Source [id number] 09/25/2020 05:33:25 PM EDT [facility] Name Value Range Interpretation Code Description Data Irish rce(s) Supporting Document(s) Progress Note [facility] KPJWUi8rCbUTOcWn97/NMHmkYETvu9JjNHkgSVu4FEczSXJaM2LuOCM9jS5xUJE1WQkXRiHjZcGoVON5 lbm [file] Xt1PXjE9AYX9vDMfRl3HXFpeVcGCUqPdPC2BTHx= ID Date Data Source [id number] 09/25/2020 05:33:20 PM EDT [facility] Name Value Range Interpretation Code Description Data Irish rce(s) Supporting Document(s) Progress Note [facility] KUJAYt9dSdSREbRj37/BPThkNCEyf7LlHTyzTHa3RQjlMIDmX3AkRCL0fT0nLYU9OCrVEuZxKbJyUZP4 lbm [file] ZcoxNaDlRO7FOv1XJeI2ZQE3xPJkVp5IEvMqVKLCUtMjWW0ICKj= ID Date Data Source [id number] 09/22/2020 12:28:33 PM EDT [facility] Name Value Range Interpretation Code Description Data Irish rce(s) Supporting Document(s) Progress Note [facility] JOFSGn0vBgZUTyLt94/ERFqjLCRyb4OlXWcsPYz6DHylGMQnD6BlDGE7vY3aYMX6SCxUYeRzMhHmQBFe lbm [file] AgICAgICAgICAgICAgICAgICAgICAgICAgICAgICAg ICAgICAgICAgICAgICAgICAgICAgICAgICAgICAgICAgICAgICAgICAgICAgICAgDQogICAgICAgICAg ICAgICAgICAgICAgICAgICAgICAgICAgICAgICAgICAgICAgICAgICAgICAgICAgICAgICAgICAgICAg ICAgICAgICAgICAgICAgICAgICAgICAgICAgICAgDQ ogICAgICAgICAgICAgICAgICAgICAgICAgICAgICAgICAgICAgICAgICAgICAgICAgICAgICAgICAgIC AgICAgICAgICAgICAgICAgICAgICAgICAgICAgICAgICAgICAgICAgDQogICAgICAgICAgICAgICAgIC AgICAgICAgICAgICAgICAgICAgICAgICAgICAgICAg ICAgICAgICAgICAgICAgICAgICAgICAgICAgICAgICAgICAgICAgICAgICAgICAgICAgDQogICAgICAg ICAgICAgICAgICAgICAgICAgICAgICAgICAgICAgICAgICAgICAgICAgICAgICAgICAgICAgICAgICAg ICAgICAgICAgICAgICAgICAgICAgICAgICAgICAgIC AgDQogICAgICAgICAgICAgICAgICAgICAgICAgICAgICAgICAgICAgICAgICAgICAgICAgICAgICAgIC AgICAgICAgICAgICAgICAgICAgICAgICAgICAgICAgICAgICAgICAgICAgDQogICAgICAgICAgICAgIC AgICAgICAgICAgICAgICAgICAgICAgICAgICAgICAg ICAgICAgICAgICAgICAgICAgICAgICAgICAgICAgICAgICAgICAgICAgICAgICAgICAgICAgDQogICAg ICAgICAgICAgICAgICAgICAgICAgICAgICAgICAgICAgICAgICAgICAgICAgICAgICAgICAgICAgICAg ICAgICAgICAgICAgICAgICAgICAgICAgICAgICAgIC AgICAgDQogICAgICAgICAgICAgICAgICAgICAgICAgICAgICAgICAgICAgICAgICAgICAgICAgICAgIC AgICAgICAgICAgICAgICAgICAgICAgICAgICAgICAgICAgICAgICAgICAgICAgDQogICAgICAgICAgIC AgICAgICAgICAgICAgICAgICAgICAgICAgICAgICAg ICAgICAgICAgICAgICAgICAgICAgICAgICAgICAgICAgICAgICAgICAgICAgICAgICAgICAgICAgDQo8 D5ryWBGeAFXwDZ4mBAc8Go9+PZmBPiHoXFX5ptPztS3KLO6ts2JpVWhyKYIwf7DqFJj4HI1HLIQkVWte WN7CRZetnq5LVSQrLLDthNVCw9koWgKaPAV0QQGfYq yyYE5BEMJbM4ngfcLcVUNsXGHWJKykOPRKUKnaLJJDGWOiEAVsGnRjTwUaXOLcHMCgTFOFHMV2FWByJd EkNVigQN3Es2FznOC5PWs+Kt0NDC1ok5LdIVluEYMsWX6icc1SXOkPNnAbG3GdzzP8DJB2UVDoYj1JLS KkNMUfrRTiSUFjUCUNOuCqE1FkwG30LLKNXn9+DQpl hwZrKcqYYhT4EOXtq7KrVBg0AN6ECGCpHFg2lWZbCSAoH5Jrt1JpNk83WTUsXnggXIl1f0QtGC1yA0Sl E6spgVukGVKbTAEdAD8lSF0yJEBzUMW6KrVgMCRJTC9JXQLzQQJgdWZaZNZrZQRVZU8BOUvvAOL4AKDc ldVbwLMcQDfsLM4PSSHjdoLzPhUhHDLPFCt+Pg0KZW 2st7TlFVddEnJxBZ7dsh2EQCuGTrKnC9J2zQRfN5D2NLkuGr9LONGfMTGvUbJtTSGYBZsqVA9JDU0tha W7XU4CiFNkXSRuQIBtbDQaLWn0U87fhFDuCCehHH1WGMM+Zeferino+Fu5LPXTgQIKoLJZrZmRoIAAXKdYeE7 XpG9JZz1JlR5SgBI10rYaibkIfXWngDB1TKT5bCXCj ZSSZOI7IbSEyhC5pxzAvNWAlDVVTGxLmK36zdUVeRQGyOLHgGDMsLs4VPEXrC1XxzpGhkAnxafNvLKWc FPLBDO8EENctqhZobOXxfNvkDT01rGyuZJ9CZv1RVfMqWY7uou1EvQNkQh6WEDKqIk4EAGVbIOKrXLLr ESZ9VOGlXwLuEBgtZGZnSOKpFEE1ZVNoCLTnFJ3GAn TiLMXvXrogPjOhYRDhGUPcyv7YPJXoVZW3GUZyNkJpDOApWVHrYYnsYKOqQSWeCII9IGOhVYOfOS1VCv LyGVZwCKGmKDodAXBfRYQnnl4HSDUjERHuKZMgFkBhSLJfGOYhWJxnLRXdBSQ2WxU8PYXsZHNmQQ6ZBs TaPQEzLYe9IpWvASDbZEPcuq6QYUBdSDGrSMp1IOXh GZBbDYFzTYncGDGeDWCrMBN8DCBzMOIwQW4LEpGeHTCgAOB4XTGlRFMuBCGpnz7CVYMdNLRyIMYkTmDn VEOvBKWoVYkvHRAwGJB8Yaj3AWHyXFPeBR3AGiIgIYAdWHw1CQZmJOOhZWIzus4TUIDeIHRzPBw1IwXr KHDrNJZkWXysXBOmZFNbPKS1AUIlNGOeUV7PWsUaWA GhFaI4GAZhRCWyBLVbzj2ESWLiBFLfNaf0JGAcKZSvYGWyNPkwPHOiAJCsCHDnDXEwHQWzAI4XIxBqDS YfUaYcQAhgENWzNHEzbd1TCIGnUUJvKXUrRUBiTJOxGUTuXDnpNGRcKST7PVh4VKNnSVXkAS4IXhCyAJ LjDzYeUABwGXUnNOQfeo6WPKLhNQHbBCU4NBCsUDKa JQIhXXmxMOCjTCG8KTV4ETSyWXHbHY0GAmJfTIPwQgbeOsMmMRLmFAPdfb9WNKWyEXMcHfZ5NaPlLEVr TWNeKElqWFLiTDC1HiejVXIzQRIwQO9VPcPuKUMeTxv5VezoCVToKFDvtl1LDSFrHCGmVRl3TfMfEZWa LFGjISxiTUYwWND7DJypAXPnVDPaED1RFfOiWNRoSr tvNUupGDKxNIAmxb9ORZRmIDIsHDJ2AdKtGMMwNNToBDkiTXJmDYZkLQJ3XLIcQIXoWW9IZeIcGQDsMK MwIAFtVHDyCELqwm6VYPEbSSE0HOG2TyKsJGYdMGGjJHf2poUmkBQiZCe8TT7JX6PjvaWeJdxKIx3Tr8 40HJN4LHSfCp6LP8gwYh8tOKIeJBUAXa3FMHy8YOPi EAN6AKaeDER1NtQ6VYV1XIviBJxpORZ2QAXuMGN+QYf2JzIzILT9EKFyDSVpSVS4ZZf0GDDvI7B7Yepx AkD3HY2uJWNESm8+FUhhoTPvgPdiWAVURmYhCtPmIZteFKEEMr7A ID Date Data Source [id number] 09/22/2020 12:28:28 PM EDT [facility] Name Value Range Interpretation Code Description Data Irish rce(s) Supporting Document(s) Progress Note [facility] UJCRYc4yOtVNQoAg93/HPUvbKPTdy1WbJVfyRXj9CAzwRBRgG6ZvTEY9fR0dEXA5FBpUEyRnLmEkEPQi lbm [file] q7RsDt7G99V8gR0E88Xz0AtXFJ9wOnKqq8A2YOUX1QdzLtzMh0CeNpgEfsb3k/hbKQJA22JwP0W3Z+ACUÑA [file] AgICAgICAgICAgICAgICAgICAgICAgICAgICAgICAgICAgICAgICAgICAgICAgICAgICAgICAgICAgIC AgICAgICAgICAgICAgICAgICAgICAgICAgICAgICAg ICAgICAgICANCiAgICAgICAgICAgICAgICAgICAgICAgICAgICAgICAgICAgICAgICAgICAgICAgICAg ICAgICAgICAgICAgICAgICAgICAgICAgICAgICAgICAgICAgICAgICAgICAgICAgICANCiAgICAgICAg ICAgICAgICAgICAgICAgICAgICAgICAgICAgICAgIC AgICAgICAgICAgICAgICAgICAgICAgICAgICAgICAgICAgICAgICAgICAgICAgICAgICAgICAgICAgIC ANCiAgICAgICAgICAgICAgICAgICAgICAgICAgICAgICAgICAgICAgICAgICAgICAgICAgICAgICAgIC AgICAgICAgICAgICAgICAgICAgICAgICAgICAgICAg ICAgICAgICAgICANCiAgICAgICAgICAgICAgICAgICAgICAgICAgICAgICAgICAgICAgICAgICAgICAg ICAgICAgICAgICAgICAgICAgICAgICAgICAgICAgICAgICAgICAgICAgICAgICAgICAgICANCiAgICAg ICAgICAgICAgICAgICAgICAgICAgICAgICAgICAgIC AgICAgICAgICAgICAgICAgICAgICAgICAgICAgICAgICAgICAgICAgICAgICAgICAgICAgICAgICAgIC AgICANCiAgICAgICAgICAgICAgICAgICAgICAgICAgICAgICAgICAgICAgICAgICAgICAgICAgICAgIC AgICAgICAgICAgICAgICAgICAgICAgICAgICAgICAg ICAgICAgICAgICAgICANCiAgICAgICAgICAgICAgICAgICAgICAgICAgICAgICAgICAgICAgICAgICAg ICAgICAgICAgICAgICAgICAgICAgICAgICAgICAgICAgICAgICAgICAgICAgICAgICAgICAgICANCiAg ICAgICAgICAgICAgICAgICAgICAgICAgICAgICAgIC AgICAgICAgICAgICAgICAgICAgICAgICAgICAgICAgICAgICAgICAgICAgICAgICAgICAgICAgICAgIC AgICAgICANCiAgICAgICAgICAgICAgICAgICAgICAgICAgICAgICAgICAgICAgICAgICAgICAgICAgIC AgICAgICAgICAgICAgICAgICAgICAgICAgICAgICAg ICAgICAgICAgICAgICAgICANCjw/sKLhV4kqbASjanU8B6icJo0NZv6MJJ8zy5BjLHPlKNmtbrGuWjiS KnGaOYZkOawAMmm8OBxgKV4FuPCcC6NuY7GgAZwxCM9MGPEcYBAemIXvUPNaQSSlGmZ3INOwZKmhTS8R gBNvPCejGVGdXMCrCiMtGJWdZM9YLMFcD939hiPuQi 3ZOh7KIqExOT6fld5ZVaWmMIIcIjmTQka6VClyMB6NcZVigPVoSjEmPTEXJhBnO3aei5EjMkQzQVOYHD gpCC6Un9WlkRWbZUn+Jm4KLO3mp4BeIIcqQuGySK8swa0BPHzXJcGeA5EsfYtyGGFsn8fiRBKlMP2kxR FcKZF6SFThzY2bHDTvx46dfIyfXYRvIEQqEH3vPP7a ZMGnDIM0ZwEcVPOUBJ0TZDGnRGPlbHIcHRNhLXUXJV3YKEovYBK4KUNxtpAekYKsLKrxAX4ZSLUvpsFx MjEgMCBSDQo+Qh3IZM9oq4MyAAauWhElPN8sdd0OPSqAMuKcD7U5hBDjN7J8JAlgAh1MWSTuUOVcGWkp FGIHQRooCW8KRK0jvgZ1PH1QqNQkIRHcKPCpgVFrQE a4T33gfVLaZQhpXZ7KHUX+Zefeirno+Fs8BKFKxLOIyKQGeFtThEOGVDtAoS2ZnT2NYr1YwR1HzDZ93fDbuql KtVMbnQJ3RTZ5hPSGtYRJWZL6CaEPloB9ezhBrMBSrGSPHKjOxK87aqORaOCWuIYXyRENfEg5YWPRbA4 YzikHoyTgsxvHjRUZpHCIWKN1ADRtrlpZgiAGcqZcy RK23cBasGV4CQo0BThDnJC1kzd2SmETdFh2ISBJmKN9PIPFeHCHvEJMrKRU6SCQrGyLyEJirOOBhLCXe FTI7KWOwZITxOX2GVgNfIJVzVjN5RQWzHCTaFDAdgl6XJSXdELJhDPOhADHjPYFgDGZbJAvbHRWiRHHh JDS9POWjMEUiKF3WQvLsSBIpKBI6SfkaRSWjQQWyab 8JGXVhYLBlIMy9CHXePYDiAAIbGGrfHVDfYDZ6CUA6MISlUSGdWW6AXjKnXVOxZRo2YKavSBTaODEmeb 2GFQXoPXQvZFH5YQMnNXAwUANoGVehTOPoBCB7UxJ9TJLoSDDhFV2QGjIaDDIsAYn5KZIdCKZpKHGrkg 8ZVSZhCZVaBWziOWLfGNJdEAVqVVxkRQDqJMEkSOE0 BACkBFDoIS6OEiWjTATkNNHiSYWdLFHcXTGcxt9OBSRlFNScGLC3PVDqOPRjZVVoXAjaYUQkDONmIXW8 UCAxXDYsRL8WXoTeMYUdSuQfBwYuXPZoMUOtcl3DQSFvJXYmCtDwTUPpKJHkNXOvNXoaOEJsWDDoPLZu FIQvZRQzHP5GKxBqMSIgFvX0XiJnJARdAQGlbk8UAE EyHRIqVUAzBEUkDFPiLMCyYUviINHvVXT3TJh9PFXaEARlXV0UUuDrWFNhLiD0AnAyXYAoLYInlo1AbX BdzJmkrw9DGOnRDf2JsJbfUTJ3YDbmNh8daQXcZeVaTIIELz9OxmPrUTNjZCYGKQrjJUPmHUksB9EwTH r2AJCeWee0ICL1BFXkKUBtSLLcAICsIbMdCxF9QPK4 QiT6LXK6BdL4PKQ7PHS6CbW3ROUiDEHpQJViHPC+EU1yHPr+Wx7Ia4OlwhH5naXcCMylULi8Qs9NJZTZ T0YNCg== ID Date Data Source [id number] 09/21/2020 12:21:19 PM EDT [facility] Name Value Range Interpretation Code Description Data Irish rce(s) Supporting Document(s) Progress Note [facility] CORVWj8mTmMNPmMj67/NGJomPDIfr1QlWOowLGv0MUfhLAMoK6SyYNH7gZ6pJJL2RWeYVzJkEcDgKDAm lbm [file] dGE+DQogICAgICAgICAgICAgICAgICAgICAgICAgICAgICAgICAgICAgICAgICAgICAgICAgICAgICAg ICAgICAgICAgICAgICAgICAgICAgICAgICAgICAgICAgICAgICAgICAgICAgDQogICAgICAgICAgICAg ICAgICAgICAgICAgICAgICAgICAgICAgICAgICAgIC AgICAgICAgICAgICAgICAgICAgICAgICAgICAgICAgICAgICAgICAgICAgICAgICAgICAgICAgDQogIC AgICAgICAgICAgICAgICAgICAgICAgICAgICAgICAgICAgICAgICAgICAgICAgICAgICAgICAgICAgIC AgICAgICAgICAgICAgICAgICAgICAgICAgICAgICAg ICAgICAgDQogICAgICAgICAgICAgICAgICAgICAgICAgICAgICAgICAgICAgICAgICAgICAgICAgICAg ICAgICAgICAgICAgICAgICAgICAgICAgICAgICAgICAgICAgICAgICAgICAgICAgDQogICAgICAgICAg ICAgICAgICAgICAgICAgICAgICAgICAgICAgICAgIC AgICAgICAgICAgICAgICAgICAgICAgICAgICAgICAgICAgICAgICAgICAgICAgICAgICAgICAgICAgDQ ogICAgICAgICAgICAgICAgICAgICAgICAgICAgICAgICAgICAgICAgICAgICAgICAgICAgICAgICAgIC AgICAgICAgICAgICAgICAgICAgICAgICAgICAgICAg ICAgICAgICAgDQogICAgICAgICAgICAgICAgICAgICAgICAgICAgICAgICAgICAgICAgICAgICAgICAg ICAgICAgICAgICAgICAgICAgICAgICAgICAgICAgICAgICAgICAgICAgICAgICAgICAgDQogICAgICAg ICAgICAgICAgICAgICAgICAgICAgICAgICAgICAgIC AgICAgICAgICAgICAgICAgICAgICAgICAgICAgICAgICAgICAgICAgICAgICAgICAgICAgICAgICAgIC AgDQogICAgICAgICAgICAgICAgICAgICAgICAgICAgICAgICAgICAgICAgICAgICAgICAgICAgICAgIC AgICAgICAgICAgICAgICAgICAgICAgICAgICAgICAg ICAgICAgICAgICAgDQogICAgICAgICAgICAgICAgICAgICAgICAgICAgICAgICAgICAgICAgICAgICAg NRKxMYCwJQDwULOxGJPsYKRoFXUjANFmHUVdIMIwPRBoOEDhEUQeJVBlCGDbHUKiZQWqUJHjDEl4G3xk HZLzYARyWD1cUKl8Ox2+RAfGHsZiARI6rmXcrQ0PKW 7eq4RyETvqAHHba5FnVVs6ZP1HSQEpALipYT9ZPOfysb2VLMNbSQHfiZFFt6ujXyRhMXG1KQKfYvucLA 3KFHBnL9ltfkNcIXIiIWKDTDsvJQDXZUwvIRHUNRKdEHAwPnRrMdVzUNMqQU1JTMAsI080jxPuTV5FYy 9AUxJtZX2tea9TUpJfAAKkSagORxc8AMgdUJ0QfLMd uPBkNNCjDWKPMuOdT2fqo8KyJmKpEDGQBDrbVR3Ws3XawCObIVs+Mt0PCZ4nx2PnWRopSDIlGJ6jtd9Q HQvNDiIfT5CuuWoqSLOrj0baNFFwXF8qeRFmCXU7DAJbkQMtyEGTBVMcqCRlwADeBcvlYMHjVLHcCI5g IO0cKXVzBKByRpO6NPXAFI8HRMPlTZNhzVZqKPJiLE YBBS3RWHdzWPH1TMZsafMxoOHfUIbpAM3XOSTpliFaMaTjLZYMKPs+Oz8GDR8ao1LbWZnrMSGmHK8vcj 1ELGbJAyPtZ1J4kVQgT5U5QCerWw0YZSUhZXQjEqDlTKSBIMqjNZ3VKT3tdrF9WH6UoVIwYUNdZPQbrC SyDBp3Z03twBHgXWwjAC4STZP+Zeferino+Jc0GURGtWMDt EDPtMgHkLLDFOlWoQ8OgS5PAb3RnW6BmXU47aQcepoVoPQxkTX7WRV5tUNDeODICJM8PdZIcfI2yvoYi MlGjYYVREeZqR97mwSAvNAQhWJQyPIVtFa7UAYAyX1UwquApbXqyccSqTSQdRIMYVQ2GBZfacnQbmOXx fDmjKD42qQmpMG7NFj0KQyIeMW3cdi4GgZAzBk4WKH IhXc3KGGQfDVSaNPEcDFP3JUGqArIiDXgkSMXsMKTzCSX1GRMtILQoBR8FIcFkUHHfCiG5MoGsJWCiJH Uyto0RCIAfAQMeBvSnJMZfKNJxLBVqBCzlZJHsWJAsIQT0NDRlXTWlER1IHhZwCUBgOIU8HbQeKSCbFW Udun7TZWWtATYnZhm1ZHRvWYXlVJGlZAcdJIKrGUH2 MpV6NDMyLUDbIE3FKgBfYBMhFKr1KkGuSKSlKXAdiq7WWQVzYZPwVVCqYKCaKOSsXQXrUWpsYZZjNKKu SfT8CZXnBAGzSM8DFeMbCXSeEVAxQNLgNPFjYREzvp6PVXJdYRJxKGR2SvUnBTGjHLMnSAqqOGBoEDH0 FKqpTLEbCWBbWQ8RHzAyLIOxSXQ6FWoxURUtSLLgio 7OCVVyYBIkOst9ToAqOSUzURKmJJnlFFVoKKZ5NUH7XXFdAPMsHV5YAqNlNFWoWJmwSzmiTXEsOPEuom 8KDLCiMRXoFVV9IaLzHNVxDWWxTKznSQAeXUM1Qhq8NKHeFZVeFV5PFxPySNGkXCe2UhJeXKQfJIWzpz 0KMDAwMDAzMDkwNiAwMDAwMCBuDQowMDAwMDMxMjMx JMFcOUEcUL1MAlRgVCXtFwN9QQIeAAHyKPVmyw2ZEHMfKMVgWZN8ZOFbQFZaSCBuFNkfHURnPTImXZO3 DKVoCBBwXW3NPiTeYOJgLtH9XLTgUYXtJSAoyb3SCQNsMLDsWqc7CVCuMIJcRVHiAShtVVZyOHHzIWX3 SUBvIKKzFU1MIoVkRFTpMdAnCBSbZVPoZRVyzj3TOQ PsQMUlGTF2ILQsRTTmTXKdLBywWFNdOSC9XOBjNLBeMQZjHM2XJkIhYYAyEqQ1FhFzHUZsXFKufl2TTI LtVPBxIsNgVSVpECAlAZTeXZcqDUPgCNM2CCZgFZKzYCAnBI1LLxKcQVFyXcU8JvLySTZiUCXtqi3IeT FxtNbggw1KAEkUQr0QrAklYYO5RSikEq5mrVGwYIOj BQDMGn2WpyZrJNRuDJCGWBwdULEdACRhQJgmDaXjTsIzHTMaOJEbOOLxJSCzBQE9MwIpXiLaUrJ6C3F6 F0YyDtTzGVFqRgB7YCEtB7U8NODqBiw8XYHtSrV+ES4oKBa+Sp7Rh8XaijN6olJlRQzcBrbkFg3HLBNQ T0YNCg== ID Date Data Source [id number] 09/21/2020 08:42:17 AM EDT [facility] Name Value Range Interpretation Code Description Data Irish e(s) Supporting Document(s) Leukocytes [#/volume] in Blood by Automated count 9.7 10*3/uL 4-10 [facility] Erythrocytes [#/volume] in Blood by Automated count 3.60 10*6/uL 4.6- 6.1 L [facility] Hemoglobin [Mass/volume] in Blood 11.7 g/dL 13.5-18 L [facility] Hematocrit [Volume Fraction] of Blood by Automated count 35.2 % 4 1-53 L [facility] Erythrocyte mean corpuscular volume [Entitic volume] by Auto mated count 97.7 fL 80-96 H [facility] Erythrocyte mean corpuscular hemoglobin [Entitic mass] by Automated count 32.5 pg 27-33 [facility] Erythrocyte mean corpuscular hemoglobin concentration [Mass/volume] by Automated count 33.3 g/dL 32.0-36.0 [facility] E[facility]th[facility] distribution width [Ratio] by Automated count 14.5 % 11.5-14.5 [facility] Platelets [#/volume] in Blood by Automated count 445 10*3/uL 150-400 H [facility] Differential cell count method - Blood [facility] Neutrophils/100 leukocytes in Blood by Automated count 72 % [facility] Lymphocytes/100 leukocytes in Blood by Automated count 12 % [facility] Monocytes/100 leukocytes in Blood by Automated count 13 % [facility] Eosinophils/100 leukocytes in Blood by Automated count 2 % [facility] Basophils/100 leukocytes in Blood by Automated count 1 % [facility] Neutrophils [#/volume] in Blood by Automated count 7.00 10*3/uL 1.8-7 .0 [facility] Lymphocytes [#/volume] in Blood by Automated count 1.19 10*3/uL 1.2-4 .0 L [facility] Monocytes [#/volume] in Blood by Automated count 1.25 10*3/uL 0-0.8 [facility] Eosinophils [#/volume] in Blood by Automated count 0.18 10*3/uL 0-0.5 [facility] Basophils [#/volume] in Blood by Automated count 0.07 10*3/uL 0-0.2 [facility] Nucleated erythrocytes/100 leukocytes [Ratio] in Blood by Automated count 0 /100{WBCs} 0-0 [facility] ID Date Data Source [id number] 09/21/2020 09:17:07 AM EDT [facility] Name Value Range Interpretation Code Description Data Irish rce(s) Supporting Document(s) Albumin [Mass/volume] in Serum or Plasma by Bromocresol green (BCG) dye binding method 3.6 g/dL 3.5-5.2 [facility] Bilirubin.total [Mass/volume] in Serum or Plasma 0.2 mg/dL <1.2 [facility] Calcium [Mass/volume] in Serum or Plasma 8.8 mg/dL 8.6-10.0 [facility] Chloride [Moles/volume] in Serum or Plasma 105 mmol/L 98-107 [facility] Creatinine [Mass/volume] in Serum or Plasma 1.52 mg/dL 0.70-1.20 [facility] Glucose [Mass/volume] in Serum or Plasma 101 mg/dL 70-140 [facility] Alkaline phosphatase [Enzymatic activity/volume] in Serum or Plasma 128 U/L 40-129 [facility] Potassium [Moles/volume] in Serum or Plasma 4.3 mmol/L 3.4-5.1 [facility] Protein [Mass/volume] in Serum or Plasma 6.8 g/dL 6.4-8.3 [facility] Sodium [Moles/volume] in Serum or Plasma 133 mmol/L 136-145 L [facility] Aspartate aminotransferase [Enzymatic activity/volume] in Serum or Plasma 12 U/L <40 [facility] Urea nitrogen [Mass/volume] in Serum or Plasma 28 mg/dL 6-20 [facility] Osmolality of Serum or Plasma by calculation 282 mosm/kg 275-300 [facility] Creatinine/Urea nitrogen [Mass Ratio] in Serum or Plasma 18 [facility] Bicarbonate [Moles/volume] in Serum 19 mmol/L 22-29 L [facility] Alanine aminotransferase [Enzymatic activity/volume] in Seru m or Plasma 24 U/L <41 [facility] Anion gap 3 in Serum or Plasma 10 mmol/L 8-15 [facility] Glomerular filtration rate/1.73 sq M pre dicted among non-blacks [Volume Rate/Area] in Serum or Plasma by Creatinine-based formula (MDRD) 51 mL/min/1.73m2 >60 L [facility] Glomerular filtration rate/1.73 sq M pre dicted among blacks [Volume Rate/Area] in Serum or Plasma by Creatinine-based formula (MDRD) 59 mL/min/1.73m2 >60 L [facility] ID Date Data Source [id number] 09/08/2020 08:05:54 PM EDT [facility] Name Value Range Interpretation Code Description Data Irish rce(s) Supporting Document(s) Progress Note [facility] JQIHMb4jTrPSAhIa88/OKMlgZQXdf1SyGUhgNFv9AOxtFLTbE7PiFZL7qV0qRUO7HStQRnYnJuDnAOO7 lbm [file] DQogICAgICAgICAgICAgICAgICAgICAgICAgICAgIC AgICAgICAgICAgICAgICAgICAgICAgICAgICAgICAgICAgICAgICAgICAgICAgICAgICAgICAgICAgIC AgICAgICAgICAgDQogICAgICAgICAgICAgICAgICAgICAgICAgICAgICAgICAgICAgICAgICAgICAgIC AgICAgICAgICAgICAgICAgICAgICAgICAgICAgICAg ICAgICAgICAgICAgICAgICAgICAgDQogICAgICAgICAgICAgICAgICAgICAgICAgICAgICAgICAgICAg ICAgICAgICAgICAgICAgICAgICAgICAgICAgICAgICAgICAgICAgICAgICAgICAgICAgICAgICAgICAg ICAgDQogICAgICAgICAgICAgICAgICAgICAgICAgIC AgICAgICAgICAgICAgICAgICAgICAgICAgICAgICAgICAgICAgICAgICAgICAgICAgICAgICAgICAgIC AgICAgICAgICAgICAgDQogICAgICAgICAgICAgICAgICAgICAgICAgICAgICAgICAgICAgICAgICAgIC AgICAgICAgICAgICAgICAgICAgICAgICAgICAgICAg ICAgICAgICAgICAgICAgICAgICAgICAgDQogICAgICAgICAgICAgICAgICAgICAgICAgICAgICAgICAg ICAgICAgICAgICAgICAgICAgICAgICAgICAgICAgICAgICAgICAgICAgICAgICAgICAgICAgICAgICAg ICAgICAgDQogICAgICAgICAgICAgICAgICAgICAgIC AgICAgICAgICAgICAgICAgICAgICAgICAgICAgICAgICAgICAgICAgICAgICAgICAgICAgICAgICAgIC AgICAgICAgICAgICAgICAgDQogICAgICAgICAgICAgICAgICAgICAgICAgICAgICAgICAgICAgICAgIC AgICAgICAgICAgICAgICAgICAgICAgICAgICAgICAg ICAgICAgICAgICAgICAgICAgICAgICAgICAgDQogICAgICAgICAgICAgICAgICAgICAgICAgICAgICAg ICAgICAgICAgICAgICAgICAgICAgICAgICAgICAgICAgICAgICAgICAgICAgICAgICAgICAgICAgICAg ICAgICAgICAgDQogICAgICAgICAgICAgICAgICAgIC AgICAgICAgICAgICAgICAgICAgICAgICAgICAgICAgICAgICAgICAgICAgICAgICAgICAgICAgICAgIC YqTXXdCWEvSXMqBNTkWZLpJDKgPKk0O9seCOMsCIHxLL1eYTa4Zq5+KVaNBpQwGZT7cnJbtV3CXD6wk2 QqZXitTUMnp1GtIBi9UG5JWXFbRQkzPW4IUNpapo9C UPOkSRUolAPPw5ogIlPuSMQ8HKLgXiltIN4AFFMjX5argrQfMOMfUEXSFFjlUMYTRD6HLhUnO8VqlX66 IDINCj4+FIzjnnFhQusFRhWnUTLpv6KnFZg9JY9GAQGlYrgei6WaOzZeWYKZQAtrPA4IYIC2ESMwREIs Qg8GTKZgE467ikQdDP7JGf9IUwYeNX8hac5UDdKeRR BbEboOEkr9JRxxIQ7RoQYzYRvWmn8cycNktqTIo7SzzpEtxVNIvAcpWDNQKRSpOTInSD7AFCR5KGAlSh KcNiSlMZMoEBd2OZQZQEoMYmKoN8Rlr0JzAcK8URUiDqPxVUudACYoCrG6OK04eCtpJR1RRNAyJJZvGL 55NHOfBLHrKv3WTy8UNdUtSX6yxv6XNmQiFAAlEdeR Utk9SBzjWT9UiKSiC5RdvTVmz5jXChHuJ0SQTWR9BTZoVe6SQSSrTtRxGUVnZKobIM1jVIJjGCHEgXog vuE6KK8QCH3qgcQmYB2OUcKdGd6nIa7WGtKbF2LgX4GeMFFgULOTFQupIF8GYNaoPN5pLX4Mg4LDdOWh oB2aoc1SGBNhXDQgGwpfjm8OGvgyX7T6iGujINKxQo WvBELQNRvxIV4VHCIiYEG9YHRkLXRkQEQTXiIoT15pMU8PD1Ogy68aIjK6GVLfSjFoOPflEG94jYiigq KdhESnoEojQZ4HWk0+BReadlHkWjgGHiunGAEQUhCsFdZZRjGuOQSjBUXlOOVvObQ9JaIeWn2AUAOyZZ AwMDAxNyAwMDAwMCBuDQowMDAwMDIyNDkzIDAwMDAw FH6MIsEfDOHvDfOqYNWlTLWcVRPpqb8HKDPaYMJkZJD9ZoNbYSAqHHBcNQxnVFXpWAR5BkX7QBOdZOPw VJ7TBbXaWPWsZKZ7NDMkLQLaQRAxmj2WCJBrTOYzQzVwQjIqVKCuGLKdCPbzWWYsDOC9QJDvEOYkVRIw WO2VFqGsJSWqGTj2FmcwKIGlXBDsqw4FHRFfYLQoDX K8ULTrUZOeGOZjCOjeAJDjPTA8OQB7VFFfJPPqBL5TMbUoKVOyWWk4ZPUlXROuXBPobl6KQUIbGRGbNB KaCtUgCYGaWQDaFAndWIPrORHkKzB1UHRxYVOrOJ6NKkGsYIFkKkB6LoFeOWAyOFHann8UFVZiPAHpCF b9KjPpANHhKMCuJVwiZPPgBWFwJEm9AJOxLUOdEK7A WyBlINFpMmSbBsQxURSeIWTogk9IPUSdPTNdBoF2AAKmAJIvHXCtTYmoLIEuMUHxPKqoRSStYZUfUI9M LlMbGEKaFwFdVDGnXGXjMFXsbn3DNGTcJZJgSYK7AyVwVKHbOJDzTZzpGXAeOFF5XRO9JUPlTYMxBV5S PzCoZKdrZLZEZjf9VWspZ8q9TMCcUD3JH9Lrn9PrBj GeONVEDJjzIJ2ztlRyMQGhQb4SB6gHHbtaWIGoRQt0V7AwOZKaW1CoKeG0TYBfEUHgHBRzQQUrHb2dUV M2TsO9AXV9EQT5ANTfYDGnAIL5Y3LuKFExLSRfKjFjLqFuIM8RNt7VNgI1FQU0fULfFk8AOeK4HgyGHs PzJV4IZAk= ID Date Data Source [id number] 09/08/2020 08:05:49 PM EDT [facility] Name Value Range Interpretation Code Description Data Irish rce(s) Supporting Document(s) Progress Note [facility] SZNNZm4bYaQFBcOd38/YQDzfUCNnb3AwIJcxXFz4ENvlQSRpQ1RfCXB3yA9jMGN5HCtBMiMfFoLmMXS3 lbm [file] AgICAgICAgICAgICAgICAgICAgICAgICAgICAgICAg ICAgICAgICAgICAgICANCiAgICAgICAgICAgICAgICAgICAgICAgICAgICAgICAgICAgICAgICAgICAg ICAgICAgICAgICAgICAgICAgICAgICAgICAgICAgICAgICAgICAgICAgICAgICAgICAgICAgICANCiAg ICAgICAgICAgICAgICAgICAgICAgICAgICAgICAgIC AgICAgICAgICAgICAgICAgICAgICAgICAgICAgICAgICAgICAgICAgICAgICAgICAgICAgICAgICAgIC AgICAgICANCiAgICAgICAgICAgICAgICAgICAgICAgICAgICAgICAgICAgICAgICAgICAgICAgICAgIC AgICAgICAgICAgICAgICAgICAgICAgICAgICAgICAg ICAgICAgICAgICAgICAgICANCiAgICAgICAgICAgICAgICAgICAgICAgICAgICAgICAgICAgICAgICAg ICAgICAgICAgICAgICAgICAgICAgICAgICAgICAgICAgICAgICAgICAgICAgICAgICAgICAgICAgICAN CiAgICAgICAgICAgICAgICAgICAgICAgICAgICAgIC AgICAgICAgICAgICAgICAgICAgICAgICAgICAgICAgICAgICAgICAgICAgICAgICAgICAgICAgICAgIC AgICAgICAgICANCiAgICAgICAgICAgICAgICAgICAgICAgICAgICAgICAgICAgICAgICAgICAgICAgIC AgICAgICAgICAgICAgICAgICAgICAgICAgICAgICAg ICAgICAgICAgICAgICAgICAgICANCiAgICAgICAgICAgICAgICAgICAgICAgICAgICAgICAgICAgICAg ICAgICAgICAgICAgICAgICAgICAgICAgICAgICAgICAgICAgICAgICAgICAgICAgICAgICAgICAgICAg ICANCiAgICAgICAgICAgICAgICAgICAgICAgICAgIC AgICAgICAgICAgICAgICAgICAgICAgICAgICAgICAgICAgICAgICAgICAgICAgICAgICAgICAgICAgIC AgICAgICAgICAgICANCiAgICAgICAgICAgICAgICAgICAgICAgICAgICAgICAgICAgICAgICAgICAgIC AgICAgICAgICAgICAgICAgICAgICAgICAgICAgICAg ICAgICAgICAgICAgICAgICAgICAgICANCjw/nOUfG6wxkWRuwjJ5O8mgKc3DUm2CQB0td2XiWRFoKQqv teBxJxcRAyBnBNUdRhlKUdb9QOjqVR8HjHIjF0JpE7UfYNwsJQ1WHSNcYOLvqHEzHAOoCIKxAgK5AEOg IMrkVH3NbOOcQCapZOPdQFGuDxZyXNKiALSrDVFsLE RiJCYPKOItUEScTqJeCPVwZZXfYM7VEPFfB975sjYiMj6DTe7RXgIvIS5kxz9LUkEsIPMmAbpNRog2QG khIA9WjWUcnCHnNoYgGEGNToItW3dso8YwOqOjSHQSDIcuEU1Uk4GbqRCyKOh+Sj8LSE7jk1HcBKgrYc ZgHD6phv5ODNnADmZsB9DfpGsqNTQyo5jnHPSkVN1l nBCbWNS7PNYspTGiIQJDRIV6CHEiKHmtWYHYGBR5INKzWwLpWkMrJVEmXNv5EIWCZDgBKyZlJ1Crf0Ma HdN4QRYfWqBxVBwuWJMuVqK9FD23uZtzXH4JZCKtSYQxRU41ONPtCXGkDi9PUx9GCgCyTO6mrd8UCnOv JEVeHujIXsa7OVnuXU4PyESiJ9FazAAak3vKOcJvB5 DXOODeAHPlDi0VQVVsDwXtFGPxWWsiUK3kDJZaNPSVrAcmgiK8WJ4XIF2gsyAzCZ4GGgGaAp9jYu6DCx VgH4KpQ4TtYVHnOKXGYTayMR2UVFrpKB0fKT0Jw0TLlYPinS4jqu1XRJKuCEIxYlwsps7TCunhR4N1yC pjUFLtBdZoXVAILTyyZO9OLDZzGNR9GHRuJIAfUEED TmOnB90iRK6RC2Gjw69rEuV8JLNiOyAiQTypUR69oKacbvJmaWNgsIvyCS1ZUa2+DQplbmRvYmoNCnhy YWZZBrVoPxDDOiBnLQRfEVJwLKHdMgV4FsOvFa9DWZQeFXKgDUOxYbItWBYvEQTbJBbhHJPoVBI3LIS4 JUNwJZWgCZ9RQeEfQYBiTnj9NvTvDJWdFYIziy2DRD LeIHJbHDQ5AwJnGKQiMMZnGRdoHFSyNVR7ITAaNENnKKIxNQ5AGaTyCKTbPCUaEWZrBDLzRCTnkc1BCE NaXORiGMKxYCBxHMNqISHeDZniNAYeRJR3QyYkEJRyABRmLP3VAfKgOTYnNIC9AVOeACOrIPDcju6IDF DhCNLuLIE6VUQbKBBnKZOgFAjaIEQyBTUrIUy0HBUw LLPjFQ3UMvEgQOZqUYXtSWKvUBAtBRUsgx1NBTXvYMXgPprdQtPaAMDxJVXpKVexWLNyABC1PRN8LAAv LIFbPJ8AMxYfAKRbAwP6ZkdqGUJjTXUgvo6YZBHrTTNjKYS5BRHfQPPbXAPcIMgwTWQtXCOwCfO0THUz AXPqOE5DTaBwMFXiCyU3NQSdMJVhRCFfhe3OKBDbUH IiHuw0CQOvOFBkYGElZTqeTUPcRREwTAInSPBiAJTmOY2ZSsXdFLMwOsXiFPKlWWMlPQKgpo2QZOOtGF XnBNQeWuQuJBSrFUHwDJupRZFbWTW4MiYfCIKnJBDaHV9WPrDxNCDtRyCgXDweBWZdORTffv8QNKFvCV IcQpN6JjFfFFRkMOVsWRsrTGIxADA4PTF1LRKyFVBd SE5BOvLvBMWpPjP3SCZdWSPtOMGnuu3SCGHtQUUsGiChBwGwEVJcZIKdUZavJODySOT7LET5VLYqUHTv EB8SMfOtVJNuAgyiTJXnPGYeTDJpqt2UAWZzNDOhNVZuTVNxNHLwYHQnMIgrGXFtNBZ1SAjdPUTgBHQz UC1YZsJaLFCxLrf2JbJgAEMqSXSeyd4EAMBcJFC4RL SdFbXpGHNaEHZmZQx7lvRzbGUxVDt4AS9TD8KavrOdHxDMDo9Jn906HCB6MPCwFa8LW0qzYf4kGFSpMD TOYf0RSPe8DFa2GjS8BUNxLXElXoGvYkNrTqJtXfR8O4U7Hme8LKV+PLa6EAKuFcKlTNNjXwXzWGGvAg O4NXW7QOLdPIMtILc9QS4cZWJBJa7+UHfnmBFgzKutRUCCQnTiMhN6NGqjVAGTMh2Q ID Date Data Source [id number] 09/08/2020 08:37:31 AM EDT [facility] Name Value Range Interpretation Code Description Data Irish rce(s) Supporting Document(s) Progress Note [facility] YRRHDe4aPxTHLvBn70/JVNryCHRmj9WmAVdtGBi5KLkqMXYkI1HcCIH7vA5cJFZ9OFhKTvMjArMiWBD8 lbm [file] ICAgICAgICAgICAgICAgICAgICAgICAgICAgICAgIC PcIKWmBGHtGMGnNNNvMUOrXBDkBETcKWZtVFUqLMSsUQSgCMIfYSDmYTAkEDZzMDVvYAVbDVJuIV6VCR AgICAgICAgICAgICAgICAgICAgICAgICAgICAgICAgICAgICAgICAgICAgICAgICAgICAgICAgICAgIC AgICAgICAgICAgICAgICAgICAgICAgICAgICAgICAg AXOsOWNqGE7TWCSgOPNpQFBbNRSdLLGlOBLfFUWuAPRpEVSnLMWuLKBsMUEpTAPfMKGcNHPxWMLnBWEu IOCuXGYzWOXvJBBnCEEoRJNiEWOeKOJbVFOnDVCxOGCfSWVxPPJvVTXhQDSrJEYrFG7WVEQvOZMkQSOl ICAgICAgICAgICAgICAgICAgICAgICAgICAgICAgIC AgICAgICAgICAgICAgICAgICAgICAgICAgICAgICAgICAgICAgICAgICAgICAgICAgICAgICAgICAgIA 0KICAgICAgICAgICAgICAgICAgICAgICAgICAgICAgICAgICAgICAgICAgICAgICAgICAgICAgICAgIC AgICAgICAgICAgICAgICAgICAgICAgICAgICAgICAg UMIgTRLoWVCxLE3XMSPoDMLnVOJjXEWwPAHlPGQaDSLpWEFxLKOuIRZaEWDwXLMaVHNhDWAtFYQqEZKr DMLdQHXbNFXhXBVnKVKuWUYhYCQhGHYiTPWtZIZaHPEwTMZyBEKzRVWmQBMoMKLoHXRpEF6BBQXyUJKg ICAgICAgICAgICAgICAgICAgICAgICAgICAgICAgIC AgICAgICAgICAgICAgICAgICAgICAgICAgICAgICAgICAgICAgICAgICAgICAgICAgICAgICAgICAgIC BfPH9FFVEwPHAiXVWqSVQsGRPjCVBeOOAgOTPkARKrXLWfCETpMHCiXCFwOAQmYEEtIICbCURzGVPxSE AgICAgICAgICAgICAgICAgICAgICAgICAgICAgICAg RWFrPDWkSYAsMRInML4GYRFgVZFhXNChKOBwDUIkUYEbGAKrQMWiFVUdKPJzIHQuXNFwDQQcSTFdJPXp ZOJiGTWlJUAmPJFgFVMvSTLdMQFoXIKiXKJdKQTiMHJrTDSrYJWxOGQyULSxJPSrIIDmXPMsIM1RMF16 aIEwr8I4KEAsNW5uram/Zm7VBDmvdoAujQNcVB7FNb RqOA7swm0LYiAbGT3egq9ZAFzDSxEuK1O7iKTqXSNnPTXJJbOlZ27iJZcmIs46EHtiCJFiTwLqCDt3Ek 7PBiTrV0spYOMuIhV1DXFhChM8IMBbRsT1KXJwGgJpEDIxHYAnSLAcKIQNYQV7WPJmVzHqFyQuMXXbDZ 8DDAIlQ475itNdRj4UPt6SYmAbRQ2bje6VHyMaEABe XfsXYam1EBnkQH2HbVUzlZBaVJLjSRUKYeZsE8odn6KxGjFuWATVGZbpNI1Hg5FqnTNcVWo+Rb2PUR4d l3WtJBxuMVIpYA9cen5DYZuOSiZbR3UrgDzgKQDjd3gdHNDhVG8ofBHhPGC0OFMydHObNGKBYJY3FSIr GLnfALUOQOE7ELKmLz7yWXNwZPC9TjQ8MVGDIA2ETU AnTDAvmJLfSWWzNCKDGP9XGFvhDJZ7KDGencZlcMMfAWrcBH7ZZQQlgbSmQzTxIUNSBKx+Nm1HUM2tq9 TlYPnjPiUgNO8uec4TAHdBAlUnK1V1wASxX2C7EZsoMg4EOMIwZYGtKbXmMOAEEYtnJK9NSM2cnlM1YS 2NjDHiOHScQKOhnUAwAQx3X41wqUApWPvaIY1QSXL+ Zeferino+Kk0LMQYnONSnIUNnGqOeYMVNKmJzP7CyS8TEi7QmX5BoRT16vGgctuJvZEqeJN0IIG5bLJCrCJZL LJ2LbTWxyM7murPwIQIkQIOSCjIoI85tdKOgFBSwLVJeGTNoCd6WIGYsG4CyoxJdiWklidNbNNErBTME SL4QKNpbiwJrtNXvbQzlMR51vLguRW7AHx5HGlBzYY 8vwv8JeTFuAd5LCMQrIi8FQXZiKUJvBDGwIKP9UAZeUuLrYDpfKXGzIGQnXQB6JFOeCBTaBK6DVyHuVA LdQhmnNsyrBSEpCOOjia2LMSAvLVI0WWK9DAEfJUEmTJSeJFiiTYEyBDHkHKC9HIVkIIXlWN8CHyUpYT WfNJMtKdjkUBJpPCKqfu4VMSIbKHRkQSR1ZwAlAAFr IKKnRUdxBSZeLBX4Rzc3DCJuQJFyFK1EGmYxYBYrUHf3APEyHUVmZNSldh9CLQReYTWsFZy6DZTvSQEf RQEsIWlyNOPtOYQoNRs6OBRhKPSyMT5UQlWsENOyGAN6WrlnYVVyLRKmbo5CZCDrFBBdSGd8XNZdZCXg CWGoNLkhLXAqACI2XsZ0SZGoSYUoPK8SSwTfCLUfGX o4GOVwEPKmHZKujw6OWXSeBCKaPJwgIXZqLYPsOMBmHXgtKTJrAIDoBZG1GGSfDNWoVN4TRkDsZAWbPi W0BPGwEROgOKRmln0ORIHoCBJeZui1QVGwVMHrSSXpJEimJXXiBKMeHPZ8WZHpLHJlOQ1RRlWbTHDtNf MrPOCxUJPmOOHdsr5WOLWeGNWjYFO8HZGdZPEyEMRu TBlpWOIvARH9WaE1FIChHVEzIZ3LTeXeJEXhVoG6MCskCLDdIEOaqt1FZRGiOBXdNQYfKhYnYVKeVBDj NFncMYSfDAL3RMD0CLUjBYCiVC8VTzMxJTPeUtvoQXLuLOQzIWQcvb3QDFAdUJGiCtZuJMShUOTrSNZj LNhxMVMmHGK6FDFhLOKeIWAbAK6BOoQmQQTyJip3LG maCEChZURlys6ZDEXpLXHnILd3RCRxBFXfQAFgVIgcRCEeRWC3QQS0WKPvPCJpQZ9LVrCrGDBkRbzaRO crSHGdYISrqi1CJHYvNAWcPVueAUYfXWTqKWNuHJghWWFwJRVoVeLfFWDhYLIcKE1MZoLfPCUqRSMfBz EmGALuJOXagv7BNNNuNLS0YTEfYfPtCNZgIUPdVCk3 kgRkrTJxBZb1SW1PM7DzflGwLkhWAp7Bp826SGG4DAZgGa1MW8fhGa5iNLOmAGZDAp9XXKr4FRGdCsP9 VdWgYSTrVyBrXXD5EMT7ASL3SUC5OdQ6FTj+TCqqEqHqJHEeBXR2YOIiOqB3EqO3PQasDDd8HFNuJJG1 QE5nKTWREx2+LJlyaWJlkXvoMZAHLxBbHfV3WEajPODQXm0F ID Date Data Source [id number] 09/06/2020 08:19:09 AM EDT [facility] Name Value Range Interpretation Code Description Data Irish e(s) Supporting Document(s) Leukocytes [#/volume] in Blood by Automated count 9.6 10*3/uL 4-10 [facility] Erythrocytes [#/volume] in Blood by Automated count 3.58 10*6/uL 4.6- 6.1 L [facility] Hemoglobin [Mass/volume] in Blood 11.6 g/dL 13.5-18 L [facility] Hematocrit [Volume Fraction] of Blood by Automated count 34.6 % 4 1-53 L [facility] Erythrocyte mean corpuscular volume [Entitic volume] by Auto mated count 96.6 fL 80-96 H [facility] Erythrocyte mean corpuscular hemoglobin [Entitic mass] by Automated count 32.4 pg 27-33 [facility] Erythrocyte mean corpuscular hemoglobin concentration [Mass/volume] by Automated count 33.6 g/dL 32.0-36.0 [facility] E[facility]th[facility] distribution width [Ratio] by Automated count 13.4 % 11.5-14.5 [facility] Platelets [#/volume] in Blood by Automated count 364 10*3/uL 150-400 [facility] Differential cell count method - Blood [facility] Neutrophils/100 leukocytes in Blood by Automated count 73 % [facility] Lymphocytes/100 leukocytes in Blood by Automated count 11 % [facility] Monocytes/100 leukocytes in Blood by Automated count 13 % [facility] Eosinophils/100 leukocytes in Blood by Automated count 2 % [facility] Basophils/100 leukocytes in Blood by Automated count 1 % [facility] Neutrophils [#/volume] in Blood by Automated count 7.06 10*3/uL 1.8-7 .0 H [facility] Lymphocytes [#/volume] in Blood by Automated count 1.01 10*3/uL 1.2-4 .0 L [facility] Monocytes [#/volume] in Blood by Automated count 1.28 10*3/uL 0-0.8 H [facility] Eosinophils [#/volume] in Blood by Automated count 0.14 10*3/uL 0-0.5 [facility] Basophils [#/volume] in Blood by Automated count 0.09 10*3/uL 0-0.2 [facility] Nucleated erythrocytes/100 leukocytes [Ratio] in Blood by Automated count 0 /100{WBCs} 0-0 [facility] ID Date Data Source [id number] 09/06/2020 09:12:18 AM EDT [facility] Name Value Range Interpretation Code Description Data Irish rce(s) Supporting Document(s) Albumin [Mass/volume] in Serum or Plasma by Bromocresol green (BCG) dye binding method 3.6 g/dL 3.5-5.2 [facility] Bilirubin.total [Mass/volume] in Serum or Plasma 0.2 mg/dL <1.2 [facility] Calcium [Mass/volume] in Serum or Plasma 9.1 mg/dL 8.6-10.0 [facility] Chloride [Moles/volume] in Serum or Plasma 105 mmol/L 98-107 [facility] Creatinine [Mass/volume] in Serum or Plasma 1.66 mg/dL 0.70-1.20 [facility] Glucose [Mass/volume] in Serum or Plasma 122 mg/dL 70-140 [facility] Alkaline phosphatase [Enzymatic activity/volume] in Serum or Plasma 90 U/L 40-129 [facility] Potassium [Moles/volume] in Serum or Plasma 4.2 mmol/L 3.4-5.1 [facility] Protein [Mass/volume] in Serum or Plasma 6.5 g/dL 6.4-8.3 [facility] Sodium [Moles/volume] in Serum or Plasma 138 mmol/L 136-145 [facility] Aspartate aminotransferase [Enzymatic activity/volume] in Serum or Plasma 18 U/L <40 [facility] Urea nitrogen [Mass/volume] in Serum or Plasma 26 mg/dL 6-20 [facility] Osmolality of Serum or Plasma by calculation 292 mosm/kg 275-300 [facility] Creatinine/Urea nitrogen [Mass Ratio] in Serum or Plasma 16 [facility] Bicarbonate [Moles/volume] in Serum 22 mmol/L 22-29 [facility] Alanine aminotransferase [Enzymatic activity/volume] in Seru m or Plasma 28 U/L <41 [facility] Anion gap 3 in Serum or Plasma 11 mmol/L 8-15 [facility] Glomerular filtration rate/1.73 sq M pre dicted among non-blacks [Volume Rate/Area] in Serum or Plasma by Creatinine-based formula (MDRD) 46 mL/min/1.73m2 >60 L [facility] Glomerular filtration rate/1.73 sq M pre dicted among blacks [Volume Rate/Area] in Serum or Plasma by Creatinine-based formula (MDRD) 53 mL/min/1.73m2 >60 L [facility] ID Date Data Source [id number] 08/26/2020 12:24:30 PM EDT [facility] Name Value Range Interpretation Code Description Data Irish rce(s) Supporting Document(s) Progress Note [facility] [id number]/PFVzwGPXsb6AiTVmnTMu3XWamZVSzT9PkBIC5hU1pGST4YMvFXqOfJzBwQqA3 [facility] [file] [id number]== ID Date Data Source [id number] 08/24/2020 08:56:43 AM EDT [facility] Name Value Range Interpretation Code Description Data Irish rce(s) Supporting Document(s) Leukocytes [#/volume] in Blood by Automated count 12.1 10*3/uL 4-10 [facility] Erythrocytes [#/volume] in Blood by Automated count 4.16 10*6/uL 4.6- 6.1 L [facility] Hemoglobin [Mass/volume] in Blood 13.3 g/dL 13.5-18 L [facility] Hematocrit [Volume Fraction] of Blood by Automated count 40.4 % 4 1-53 L [facility] Erythrocyte mean corpuscular volume [Entitic volume] by Auto mated count 97.1 fL 80-96 H [facility] Erythrocyte mean corpuscular hemoglobin [Entitic mass] by Automated count 31.9 pg 27-33 [facility] Erythrocyte mean corpuscular hemoglobin concentration [Mass/volume] by Automated count 32.9 g/dL 32.0-36.0 [facility] Erythrocyte distribution width [Ratio] by Automated count 13.6 % 11.5-14.5 [facility] Platelets [#/volume] in Blood by Automated count 523 10*3/uL 150-400 [facility] Differential cell count method - Blood [facility] Neutrophils/100 leukocytes in Blood by Automated count 69 % [facility] Lymphocytes/100 leukocytes in Blood by Automated count 13 % [facility] Monocytes/100 leukocytes in Blood by Automated count 14 % [facility] Eosinophils/100 leukocytes in Blood by Automated count 3 % [facility] Basophils/100 leukocytes in Blood by Automated count 1 % [facility] Neutrophils [#/volume] in Blood by Automated count 8.39 10*3/uL 1.8-7 .0 [facility] Lymphocytes [#/volume] in Blood by Automated count 1.57 10*3/uL 1.2-4 .0 [facility] Monocytes [#/volume] in Blood by Automated count 1.71 10*3/uL 0-0.8 H [facility] Eosinophils [#/volume] in Blood by Automated count 0.33 10*3/uL 0-0.5 [facility] Basophils [#/volume] in Blood by Automated count 0.10 10*3/uL 0-0.2 [facility] Nucleated erythrocytes/100 leukocytes [Ratio] in Blood by Automated count 0 /100{WBCs} 0-0 [facility] ID Date Data Source [id number] 08/24/2020 09:33:38 AM EDT [facility] Name Value Range Interpretation Code Description Data Irish rce(s) Supporting Document(s) Albumin [Mass/volume] in Serum or Plasma by Bromocresol green (BCG) dye binding method 3.5 g/dL 3.5-5.2 [facility] Bilirubin.total [Mass/volume] in Serum or Plasma 0.3 mg/dL <1.2 [facility] Calcium [Mass/volume] in Serum or Plasma 8.8 mg/dL 8.6-10.0 [facility] Chloride [Moles/volume] in Serum or Plasma 101 mmol/L 98-107 [facility] Creatinine [Mass/volume] in Serum or Plasma 1.98 mg/dL 0.70-1.20 [facility] Glucose [Mass/volume] in Serum or Plasma 100 mg/dL 70-140 [facility] Alkaline phosphatase [Enzymatic activity/volume] in Serum or Plasma 92 U/L 40-129 [facility] Potassium [Moles/volume] in Serum or Plasma 4.8 mmol/L 3.4-5.1 [facility] Protein [Mass/volume] in Serum or Plasma 6.5 g/dL 6.4-8.3 [facility] Sodium [Moles/volume] in Serum or Plasma 136 mmol/L 136-145 [facility] Aspartate aminotransferase [Enzymatic activity/volume] in Serum or Plasma 29 U/L <40 [facility] Urea nitrogen [Mass/volume] in Serum or Plasma 29 mg/dL 6-20 [facility] Osmolality of Serum or Plasma by calculation 288 mosm/kg 275-300 [facility] Creatinine/Urea nitrogen [Mass Ratio] in Serum or Plasma 15 [facility] Bicarbonate [Moles/volume] in Serum 23 mmol/L 22-29 [facility] Alanine aminotransferase [Enzymatic activity/volume] in Seru m or Plasma 47 U/L <41 [facility] Anion gap 3 in Serum or Plasma 13 mmol/L 8-15 [facility] Glomerular filtration rate/1.73 sq M pre dicted among non-blacks [Volume Rate/Area] in Serum or Plasma by Creatinine-based formula (MDRD) 37 mL/min/1.73m2 >60 L [facility] Glomerular filtration rate/1.73 sq M pre dicted among blacks [Volume Rate/Area] in Serum or Plasma by Creatinine-based formula (MDRD) 43 mL/min/1.73m2 >60 L [facility] ID Date Data Source [id number] 07/27/2020 03:59:18 PM [facility] Name Value Range Interpretation Code Description Data Irish rce(s) Supporting Document(s) Progress Note [facility] [id number]/YMSmtXQKam0XbJAfhHAg4URcwUPUuJ2VnGVE1eN5xFFY0HUiVZrQyQpIuOuU4 lb [file] YNCg== ID Date Data Source [id number] 07/27/2020 03:59:13 PM EST [facility] Name Value Range Interpretation Code Description Data Irish rce(s) Supporting Document(s) Progress Note [facility] ZTOXQv2lMhPKPsPc39/PKBoxYPHqm4QkMPelUOl9DLhcOUXlX6QtWNJ3mX0qFST4BQbCRkXbLdBgWvB3 lbm [file] AgICAgICAgICAgICAgICAgICAgICAgICAgICAgICAgICAgICAgICAgICAgICAgICAgICAgICAgICAgIC AgICAgICAgICAgICAgICAgICAgICAgDQogICAgICAgICAgICAgICAgICAgICAgICAgICAgICAgICAgIC AgICAgICAgICAgICAgICAgICAgICAgICAgICAgICAg ICAgICAgICAgICAgICAgICAgICAgICAgICAgICAgICAgDQogICAgICAgICAgICAgICAgICAgICAgICAg ICAgICAgICAgICAgICAgICAgICAgICAgICAgICAgICAgICAgICAgICAgICAgICAgICAgICAgICAgICAg ICAgICAgICAgICAgICAgDQogICAgICAgICAgICAgIC AgICAgICAgICAgICAgICAgICAgICAgICAgICAgICAgICAgICAgICAgICAgICAgICAgICAgICAgICAgIC AgICAgICAgICAgICAgICAgICAgICAgICAgDQogICAgICAgICAgICAgICAgICAgICAgICAgICAgICAgIC AgICAgICAgICAgICAgICAgICAgICAgICAgICAgICAg ICAgICAgICAgICAgICAgICAgICAgICAgICAgICAgICAgICAgDQogICAgICAgICAgICAgICAgICAgICAg ICAgICAgICAgICAgICAgICAgICAgICAgICAgICAgICAgICAgICAgICAgICAgICAgICAgICAgICAgICAg ICAgICAgICAgICAgICAgICAgDQogICAgICAgICAgIC AgICAgICAgICAgICAgICAgICAgICAgICAgICAgICAgICAgICAgICAgICAgICAgICAgICAgICAgICAgIC AgICAgICAgICAgICAgICAgICAgICAgICAgICAgDQogICAgICAgICAgICAgICAgICAgICAgICAgICAgIC AgICAgICAgICAgICAgICAgICAgICAgICAgICAgICAg ICAgICAgICAgICAgICAgICAgICAgICAgICAgICAgICAgICAgICAgDQogICAgICAgICAgICAgICAgICAg ICAgICAgICAgICAgICAgICAgICAgICAgICAgICAgICAgICAgICAgICAgICAgICAgICAgICAgICAgICAg ICAgICAgICAgICAgICAgICAgICAgDQogICAgICAgIC AgICAgICAgICAgICAgICAgICAgICAgICAgICAgICAgICAgICAgICAgICAgICAgICAgICAgICAgICAgIC NeXPPoQPRkPZIgIGEsHJHhFLXvDKWqTXZgVXMrUAKjQZs2Q7yyDOAaGKBsZR3qFQq1Zu8+DQoNCmVuZH J5bkKjdO8VMB0ek7HcKJgnEGUfd7RhSQf3UR6LWOFv SCorJJ7LIKicgb1AHOCeYNIawGIWi5yiDjQtMPR5ZJMzKaoxTG1CUNXvL2pcnyQfFMHvEITDDCpnLVDL VOfhNEDNVVOvHYInMjKkZtTbEERbUFUqXRIVRU4INxHyO2GogZ17PFGWBl0+AXowdvGvTgtBNpQ1FTHb e0OsJUj5VZ6XLHPwLumnf5ChKakeKXFVLEfbAG6TUZ U4PTH0GYOyDx9MZDVdQ222fzQdGR9JJb7DLwZmYD2agx5ZRsceGIIgRwxOCvk3JTqyAZ2AjUFnYGfSpb 6wphPhrkZLs4YtpbNwwXSWzDnlm7AkGSPTyWYkv8ZtCLXTRETodROsEeZ9IoUeAuGjYHP4SwDuRH7sAC hlYT9TATY3PIvpQNSfXCSfU6nAPmJbLERbWQJxpBwd AL1ZPfIwS0PhhvFynIEgLXRuOOGHNl9+ZEbsflPbXegCIyMeETWsb9UiVIe8IG4JNPJbQNmjQJ8CBXBp hO8mWKnkTS3JKzAjJqXuRKKBLxZiH89xuTClBNs6A3QgVaUxPOAtWdgpXUZiBQnoFcPtGRPaOlWsXIvt ID4+ID4+AAqiKU2ZUEtdkhExGNClKn2HGKQfXOFiAF 9sCJAqJRYyW1F6nTpwENNCNqIuZ8uufzysEG3sNIRrV630cEighmQhNKG5TRHbRo3DPADsWLS8XWGzsB OuVibfMBOQZFajQR3BgJXhAWC0kN3vYZpkGLKwGTNbO9cDAnLiqXhyFQ92iCmlpkJeqYDlGRj+Pg0KZW 0za0FiISk1woYiWWtmIPMqNSlhXOAbRGCuJUBxJVJ8 XKU8MXPJMhJaZVXsNCQrPThiXZWqFGYrfd6PIYPdNMH1CBl6HOSbUJRiJQAsHTpyKPTdDOLuMeW1SWId WFUwAS4AVwEmSCDjOSSnNHydTWFnXYLstr3PMJYzDGQlJBT1AnQeVOWzYSUyUTmeKZLuZSU5Czu4REWv QSPiDQ8PDtPaAXBqFId0DUImNNLhIRPllv8YOHAaKS KaDEVsJfFbIDThEHOvPJxfCANfSPJkIjH3OQEpFKOwOH9MKrXfVQIfMAG7EYHeNIMgSXOtkg2FJKZmFW CbDTA8TeUlAWHkDFRkGAjfWSZeBXM8CorjJXLeJGPaXV3IDlUlJZLvAMsdXHlmQEVhRVPmwo5ESBXcDK UtJSDdFYWcACWyIEZkDCagELCmINHeRtH0FCHvYGZz SH2VDqUbRZOgEnW0QACdZVVqLPDmte3QXKBpDKErGdzwKQPeBBQgYLYxEZniYIOrXKIfDATsRVDbWKTh UO0WRyExUUPkHnMvDEDhXJRoSREgvm7DCVMjOIMjNVM8PlPbPKWpUBVdOOgiYKJqKEW9AFS5DMPgQXNa LX7HJjDsRADoEpH2ZzLaBVSyDUCjtg3OYXEtJNTfDo P7ReXaHYOmMTEeZQtmCFOxBMN1Ttd8JJQdORIdKQ7TYwPzIHZvQlX6TVreBSBfJGYzms0SUHXrWYXtHl y2PiFsKFRlYKKrCPgwCIQkNHX5LAruUIKmAZUtUZ2PBgMhELTvBaq1PhwmXMTgEUPtvc8ZVDXnCUMpRZ DvFUTeKVEpFQNuZSzbOROfXYE3GfMgCFOkRDDiOO9J WoAsOHGrDzvcPIizOFMlHZSmwa2XAICrFMIrTSLkXRLnHIUxAJLrHWfcEJWtEKI3KTh9AIAsBKZzGE3D OkQuASEzOOG1ILHcRKHmVZDaky7SJSOmXAB4OEiiMCGfEEKmRERxMXdpSEYsHEJrBDD9HOQgJIYoRO1T WoLeUFKxGYLzXdsjAHOlPVYplk1ADPDdFYR4ObplXH HxZCVeLROgNKezPGLgHDBmOXJ5XOHdDVSlWM9BNfJdARAwCSJgDtTlKAKbGOEtqo8PrZQprXidjs9LZW lQGz7EoLvxCZAsHFqzIo1nrMB0KODgYMHXBs2WnbKzXTVsUYNBHVswKWEkHMC0RJc7UGGjEmKpDGC6LX I8WSJwAFvkCmm5DVG0FeFvJrJ1EGM9YGv2JQOrTcA2 WipvMwhrVcS6IWJ8ZfE5WfkvPZA+WO3fOFs+Hv6Bi9ZzlwY6weRmPDf0QkFwNL4WURLTJ7UHTb== ID Date Data Source [id number] 06/29/2020 05:41:18 PM [facility] Name Value Range Interpretation Code Description Data Irish rce(s) Supporting Document(s) Progress Note [facility] ZKSZWt2bRvDWQnNa17/MKJycFEWsg3EdRCyzDLz7WNkmONAlH2JeXGH5jO9hEZS3MQuXOfGePhMwUWF8 lbm [file] [id number]= ID Date Data Source [id number] 06/22/2020 02:45:08 PM [facility] Name Value Range Interpretation Code Description Data Irish rce(s) Supporting Document(s) Progress Note [facility] STDKYu9hSyXYQzWl27/AEUorBGFuy7BbSWddQFw8RKisDWHyC6YlQOH3qD9cGYA2DZiQSxOzIpKmIPDz lbm [file] A+MQ3yCQf+Nr5Ow5FhhxF2jzOtRKxeILC9Ik6MMXITD7VWWm== ID Date Data Source [id number] 06/22/2020 11:53:18 AM EST [facility] Name Value Range Interpretation Code Description Data Irish rce(s) Supporting Document(s) Leukocytes [#/volume] in Blood by Automated count 12.0 10*3/uL 4-10 [facility] Erythrocytes [#/volume] in Blood by Automated count 4.64 10*6/uL 4.6- 6.1 [facility] Hemoglobin [Mass/volume] in Blood 15.0 g/dL 13.5-18 [facility] Hematocrit [Volume Fraction] of Blood by Automated count 45.4 % 4 1-53 [facility] Erythrocyte mean corpuscular volume [Entitic volume] by Auto mated count 97.7 fL 80-96 H [facility] Erythrocyte mean corpuscular hemoglobin [Entitic mass] by Automated count 32.3 pg 27-33 [facility] Erythrocyte mean corpuscular hemoglobin concentration [Mass/volume] by Automated count 33.1 g/dL 32.0-36.0 [facility] E[facility]throcyte distribution width [Ratio] by Automated count 13.8 % 11.5-14.5 [facility] Platelets [#/volume] in Blood by Automated count 286 10*3/uL 150-400 [facility] Differential cell count method - Blood [facility] Neutrophils/100 leukocytes in Blood by Automated count 70 % [facility] Lymphocytes/100 leukocytes in Blood by Automated count 16 % [facility] Monocytes/100 leukocytes in Blood by Automated count 9 % [facility] Eosinophils/100 leukocytes in Blood by Automated count 4 % [facility] Basophils/100 leukocytes in Blood by Automated count 1 % [facility] Neutrophils [#/volume] in Blood by Automated count 8.42 10*3/uL 1.8-7 .0 [facility] Lymphocytes [#/volume] in Blood by Automated count 1.88 10*3/uL 1.2-4 .0 [facility] Monocytes [#/volume] in Blood by Automated count 1.10 10*3/uL 0-0.8 [facility] Eosinophils [#/volume] in Blood by Automated count 0.46 10*3/uL 0-0.5 [facility] Basophils [#/volume] in Blood by Automated count 0.12 10*3/uL 0-0.2 [facility] Nucleated erythrocytes/100 leukocytes [Ratio] in Blood by Automated count 0 /100{WBCs} 0-0 [facility] ID Date Data Source [id number] 06/22/2020 12:41:07 PM [facility] Value Range Interpretation Code Description Data Irish rce(s) Supporting Document(s) Amylase [Enzymatic activity/volume] in Serum or Plasma 101 U/L 28- 103 [facility] ID Date Data Source [id number] 06/22/2020 12:41:07 PM [facility] Value Range Interpretation Code Description Data Irish rce(s) Supporting Document(s) Lipase [Enzymatic activity/volume] in Serum or Plasma 82 U/L 13-6 0 [facility] ID Date Data Source [id number] 06/22/2020 12:41:07 PM [facility] Value Range Interpretation Code Description Data Irish rce(s) Supporting Document(s) Thyroxine (T4) free [Mass/volume] in Serum or Plasma 0.99 ng/dL 0.93- 1.70 [facility] ID Date Data Source [id number] 06/22/2020 12:41:07 PM [facility] Value Range Interpretation Code Description Data Irish rce(s) Supporting Document(s) Albumin [Mass/volume] in Serum or Plasma by Bromocresol green (BCG) dye binding method 4.0 g/dL 3.5[facility]5.2 [facility] Bilirubin.total [Mass/volume] in Serum or Plasma 0.3 mg/dL <1.2 [facility] Calcium [Mass/volume] in Serum or Plasma 9.0 mg/dL 8.6-10.0 [facility] Chloride [Moles/volume] in Serum or Plasma 104 mmol/L 98-107 [facility] Creatinine [Mass/volume] in Serum or Plasma 1.31 mg/dL 0.70-1.20 [facility] Glucose [Mass/volume] in Serum or Plasma 98 mg/dL 70-140 [facility] Alkaline phosphatase [Enzymatic activity/volume] in Serum or Plasma 103 U/L 40-129 [facility] Potassium [Moles/volume] in Serum or Plasma 4.3 mmol/L 3.4-5.1 [facility] Protein [Mass/volume] in Serum or Plasma 6.3 g/dL 6.4-8.3 [facility] Sodium [Moles/volume] in Serum or Plasma 135 mmol/L 136-145 [facility] Aspartate aminotransferase [Enzymatic activity/volume] in Serum or Plasma 14 U/L <40 [facility] Urea nitrogen [Mass/volume] in Serum or Plasma 15 mg/dL 6-20 [facility] Osmolality of Serum or Plasma by calculation 281 mosm/kg 275-300 [facility] Creatinine/Urea nitrogen [Mass Ratio] in Serum or Plasma 11 [facility] Bicarbonate [Moles/volume] in Serum 24 mmol/L 22-29 [facility] Alanine aminotransferase [Enzymatic activity/volume] in Seru m or Plasma 23 U/L <41 [facility] Anion gap 3 in Serum or Plasma 7 mmol/L 8-15 [facility] Glomerular filtration rate/1.73 sq M pre dicted among non-blacks [Volume Rate/Area] in Serum or Plasma by Creatinine-based formula (MDRD) 61 mL/min/1.73m2 >60 [facility] Glomerular filtration rate/1.73 sq M pre dicted among blacks [Volume Rate/Area] in Serum or Plasma by Creatinine-based formula (MDRD) 70 mL/min/1.73m2 >60 [facility] ID Date Data Source [id number] 06/22/2020 12:41:07 PM EST [facility] Name Value Range Interpretation Code Description Data Irish rce(s) Supporting Document(s) Thyrotropin [Units/volume] in Serum or Plasma 2.800 u[IU]/mL 0.270-4. 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 06/21/2020 12:00:00 AM EST eC W1 ([facility]) Name Value Range Interpretation Code Description Data Irish rce(s) Supporting Document(s) URINE eCW1 ([facility], [facility]) ID Date Data Source [id number] 06/07/2020 02:13:13 PM EST [facility] Name Value Range Interpretation Code Description Data Irish rce(s) Supporting Document(s) Progress Note [facility] [id number]/YFSgdLMUox8KuQPxsNZu2QZvwWYDwN3IvVFA1nG3vRLW5BKjLUmZnWbRwHDT4 lbm [file] ICAgICAgICAgICAgICAgICAgICAgICAgICAgICAgICAgICAgICAgICAgICAgICAgICAgICAgICAgICAg ICAgICAgICAgICAgICAgICAgICAgICAgICANCiAgICAgICAgICAgICAgICAgICAgICAgICAgICAgICAg ICAgICAgICAgICAgICAgICAgICAgICAgICAgICAgIC AgICAgICAgICAgICAgICAgICAgICAgICAgICAgICAgICAgICANCiAgICAgICAgICAgICAgICAgICAgIC AgICAgICAgICAgICAgICAgICAgICAgICAgICAgICAgICAgICAgICAgICAgICAgICAgICAgICAgICAgIC AgICAgICAgICAgICAgICAgICANCiAgICAgICAgICAg ICAgICAgICAgICAgICAgICAgICAgICAgICAgICAgICAgICAgICAgICAgICAgICAgICAgICAgICAgICAg ICAgICAgICAgICAgICAgICAgICAgICAgICAgICANCiAgICAgICAgICAgICAgICAgICAgICAgICAgICAg ICAgICAgICAgICAgICAgICAgICAgICAgICAgICAgIC AgICAgICAgICAgICAgICAgICAgICAgICAgICAgICAgICAgICAgICANCiAgICAgICAgICAgICAgICAgIC AgICAgICAgICAgICAgICAgICAgICAgICAgICAgICAgICAgICAgICAgICAgICAgICAgICAgICAgICAgIC AgICAgICAgICAgICAgICAgICAgICANCiAgICAgICAg ICAgICAgICAgICAgICAgICAgICAgICAgICAgICAgICAgICAgICAgICAgICAgICAgICAgICAgICAgICAg ICAgICAgICAgICAgICAgICAgICAgICAgICAgICAgICANCiAgICAgICAgICAgICAgICAgICAgICAgICAg ICAgICAgICAgICAgICAgICAgICAgICAgICAgICAgIC AgICAgICAgICAgICAgICAgICAgICAgICAgICAgICAgICAgICAgICAgICANCiAgICAgICAgICAgICAgIC AgICAgICAgICAgICAgICAgICAgICAgICAgICAgICAgICAgICAgICAgICAgICAgICAgICAgICAgICAgIC AgICAgICAgICAgICAgICAgICAgICAgICANCiAgICAg ICAgICAgICAgICAgICAgICAgICAgICAgICAgICAgICAgICAgICAgICAgICAgICAgICAgICAgICAgICAg ICAgICAgICAgICAgICAgICAgICAgICAgICAgICAgICAgICANCjw/dRAqG7rrvGCfqlO3Y8xwJh9MUw5S KK7fl8VvNWZfZVmhysRxCawQAtCjPAIfNayCEjz2WN vfNM9WdINvS8RcF4IxAEgpPF1AQUEqSWDzxHQyLFAlYOEfVrH3KODfRQluES9NeGJnNUvxTNDwAFTvXl GlDIIzOQJwWDNlPPUwIHOPDIHcJJBlOzPvLIEgXEGkIN8TPPBqT589xqEbPv4UUh1BJySnGN3ocr7ELe YnWVCdFyaBMyh2BBvpNM8JqSWupVUpCcHnLHFVOwNu S1aov2SlAwXzRZEMYUchDF6Je2YxvSJsKRc+Vh1XGI8sh0OqOUwhInIwRZ5idw7NDIxMMfImP0UuwPqw PHUgd0ilPWXbLT6opOWuCAD5ZFGovBMyCQFXZJW1CBUgECvdQUTKCVO8GSXqHqCqZjJzSrNoHEZ4TGDn SX4yLEerQV4VMPU7QJsdXXLoZFApQ2aKNaJcBGCkFC JwzFtuJQ1AEzAhP6CejwXjoNEmRKQiPIHCBo5+HJyvjzKcJogVUjN6LDLwq8QwNLi8FZ6IGPPuVVewHF 6SDTAsiY4zDKvvYC6GAcGpGaYaHNCATkBnP43daQViWGi4O6YaNqPnLYJbVkkcEEUxCWvtLlDvRZPrDv BdDQogID4+ID4+IQrdMG5NHFqiwaItCIXwGw8SILEl YURoYS8gJSDeRELmL2M8eZpfOQTWBuMhO1pkdgqsLE9yTBRlV274kKtdyyDhNFM6OHYiYa0CFDWxFYK7 CJJyqUXdBeKhFTFWZYgwFA6JkSTlZEH3pV8oUXqkZNEuPOJdH5cZEiAsdZzeMO84oIrnywBnnSOdAYn+ Zx4KEK5cq9XuDYx3onGrRRfgXWR4FApnIUUhDIXaMF LyMEC1ZCI8MFAXEiKqJBIoYJBfPKbrXFJsEKNoeb0TYYPrCLD1LMHaIFLvVBCfKZEjFLgkCPXkUGFwSn K7VUNiAESyJT7LTmZfDAYlDFQfSNvnRGEmAJUvcu0ATMIkBTTuCCFlPAVgUFTsCMVkKLvlOGDeBFF5DM Z7NFSjESEnBI7OSoEwUCBySFphSPIvTGBwGGKmaw0U GFPpWBMxZVV9PGRbWVIjAZTnRQzlDHDvJLYjQUSjGNAxNSOlQW5HEsDfYDWfLGO6ZAVbIXIdSZGjmo6F HIIdQKNyPDTjZXCgBPJrGKTeNFjuFAGiUSX6UnKpRKRpZJVnNN6QIkLkSPLvAVq7YxakGNSoALQdtt3G EAAdLZUsPMg4TkTwOVMtLNHcTNjxLPFmXPAzGZq5DB CqSTRzMT8MUnUfKTMgWkH7NRBuVBStJFEnke2VECEqMKVmVix8FPYkWCHcMKMsIPgaKIZhTZNuGJBtEK TtSVNbBU7VHsAwYLZfBdZdPPKeHVSjMRQrgi0PTPBpZCSwXCQkIOJuCKTfVGQbZJpzMGHsLIS6AyT3NT GaNMQySB5QDcQnQFMhDrI9SDYdBZIcTESyzx4SXAXm WDFfKmyuBYTlKRKsUPTiCNmgQLOmXGK5EmR6MODqUUYiRK8LLhDaEOHwNcb0DNrpPRZxVJKeid1HIBFi RQNwBqzlUJJoSBSmQQEdBQjtOXNvATT1OPY2ZWVeREDdZN3KPfVnRBZnXbm3LKjlPIFtMWWppj7TRAIk NDWiEGn8SqIfFAKiSBFiBYimZNKsHMB2FOM9KPKzKD OdBQ7DWwNjIHUvWKMtQCqlMEHpGQMljs1YBVUnBPH3SDKqVIQtGNRcFQIvGTupDZQvLQQrBCctMOEvVA PpUR5BKtPmBAXtJJM3XDOeNMHjKJDvqd2RUPGiFHG8WhX6KuArKTIdTMGsVFutDGKdJWFuFXD3TRRsIZ AgBI2IObYsQEPvGAV6NOPzCNCtBIXcac3NtKFmtBjb cb9DFQdDEk2QoQyqSBJ7IFokXy2omMAsEpMaCIZURf6LvdGpWTMlMPNHXIyeIYFpIIvqOwA8BSW5JMzv XTYjWGHkGgviRIW1OPQiSRU2YXYbWhZ9FDGuTAIyWhA2J6X5DVXtHdVuCHR3FKCjAXDjZbBnXsH+IF0g DQo+Sc8Uk0TcfpL3uvMnCNh9Whn6ZU6UHILMO5PRHy== ID Date Data Source [id number] 06/03/2020 08:05:54 PM [facility] Name Value Range Interpretation Code Description Data Irish rce(s) Supporting Document(s) Progress Note [facility] INLEVw5tOdNMQfRl66/LBXncQMMex9XpLXmpCWn3SSexYDZvT9LlFAG7eH5ePFU8EVhVRbZtWuJwVDIz lbm [file] ICAgICAgICAgICAgICAgICAgICAgICAgICAgICAgIC RiSDBwMXImQJRhFTXxTOJtPZCzMTFfEAAmHTTyVOPmIBQeJGWdBTSwNIYaNMZvFHFqHH3NFOXyZBCaTM AgICAgICAgICAgICAgICAgICAgICAgICAgICAgICAgICAgICAgICAgICAgICAgICAgICAgICAgICAgIC AgICAgICAgICAgICAgICAgICAgICAgICAgICAgICAg YV2IANJeZTIkKQLwFYVgVMSmLRIaFRIgAHSdVGEiGHVlGKLhKOWcTPDmUQWsRIPwFVNzDEUrPJSiAUAp PLHkILKjQRLiWZVvWHCyZYJvGEMcHYArCEFwZSMmSWJrUJVtBIMsQAQlZW7ZYZSlPCHlYQHbPVWyIZEi ICAgICAgICAgICAgICAgICAgICAgICAgICAgICAgIC XoHYThDMKoRWJuXCWyRMZbWNVxUWTwUXGqBMDgMKLoYXSmWEWvEBDrVSLpPUVsWCVrMTJfLX6WUIMgDP AgICAgICAgICAgICAgICAgICAgICAgICAgICAgICAgICAgICAgICAgICAgICAgICAgICAgICAgICAgIC AgICAgICAgICAgICAgICAgICAgICAgICAgICAgICAg CMStEQ9YCUYiSYFnRJRmWFNzPQQjGZBqMDGpYPClNSDnPCDzFQGwQBOkAXBlUGEpZNBnWIZkQYTsZPCm FICrSUSfFHPvPMViPRWoMJNaXAFsGMZcZOGvMSGpNDMuPDKlGFNcDGBvTUOiWT8LIGPyUFXaAWGgPQQx ICAgICAgICAgICAgICAgICAgICAgICAgICAgICAgIC RtIYZpNPJwJVLwOAVrPKVqIKHoHEEmHVBzLXGdYTDrUMBcONSmXBNiOQMpXIXyALBxZTKfFMMrUF2ARS AgICAgICAgICAgICAgICAgICAgICAgICAgICAgICAgICAgICAgICAgICAgICAgICAgICAgICAgICAgIC AgICAgICAgICAgICAgICAgICAgICAgICAgICAgICAg WDRwXFWxSG3LKVLcPLFlSGHxVUNbPCSfFFXiACZjHQWgFHWaBBVjZHWqYAFlJISpXADtQLVnXXOlLYPo WGHrTRRsMORpGVPtTWKcEAPsVLNnBEXaNVNcEVUpTCEuPZWiUZSgQHHbIWMqHJBpYL7KGLLpBJKcZOHv ICAgICAgICAgICAgICAgICAgICAgICAgICAgICAgIC AgICAgICAgICAgICAgICAgICAgICAgICAgICAgICAgICAgICAgICAgICAgICAgICAgICAgICAgICAgIA 0JPW14kEAwo9K0NADqVS5agde/Wy2QQLpaucIomNOfAM9LSnVmGG8nta0BKtYqPU9jcj2PNKcTPdEnA9 O0rXMyJTBzJTKEJqEmY23vAHomKo86OVjlANDvSkZt UJu1Uy7TGcMnE7ntLTBoTcI2AMTkVlHjDKtzBZ3Pw5IjsUYtVSe+Bf7HUW2tj6IrXKjqPXZePE6jrk9R NVvBVaRmM6FykeS8PTDpZZIiWc4HNOAzRFCttSEoQFQuJBAHYyUiX3LrxD40WFVQLy4+DQplbmRvYmoN GxMmCDRqc2AdWFq2FU6XLCAuZMb9uOPdCWEjN1Wxl0 BsQv33DELkPqdbENsuhoYmSrLikrO5ZVTUFKMvqZUoBp4jPV5sPUShGPHxHtJ8RNAAFF6ZEZPnJRKmtW YnJHSuUQUUYP6MRRlpZNQ1FVAwptCqeGYwPQujGR1HDCWkclHaUQvpJSHVPGs+Mo9AXH6hk2TpSWmsZR PpWF2qjw8SENxXYdPwB3X2rDAcZ2A0ONuyEk3XUGYo OFRnNOfbRNDREWzaUM5NYZ2rmcM9IW5EmDFuAKOuXKLsgQRrZMt0L51gbNOxYUzgMI4NLYI+Zeferino+Pg0K NXNqGHDuHKQzRjRsEJVTAdTvO3PdZ7JPw5MrJ7PqGN77zEjjnsThVEagEH2RWR3wZQPbMKGCCL0OvVLd gX7dzsOkYTEhTBEWVlFkI83suTGyMFOpLQO6XIQiGv 2DESXdJ4YuosEwvWulnlBuRTMgSSANMS9QTNowdlTpeXRzcYhhCR62cWshLY7EKr8LGeBdYO7dzx3FdF GrTr1ACZBxLe0JRLCeOPUmPRAcZAV2ASMaTbXyRVdlYWKoIDWaEQM1RHOrUCQkUR1QEhKhGQNzXZa5Vc VkRUFrKYPhbz1ZAUOqEWDvJAB1UCFgQUMfRQKzPTrk QYEjIAQjWVY6BEUgXEWoMQ3LBfFrYSGtZAT9QJJjOCZdENEvws5CLQOdWCMkQwX4FhTbZVVyIMXdCQds BGKeTGJtQjN9OYXwEWWbKV0RReQbNUCrKVR5FZJwTNJwSLAbtw5LYBJcGNBvOzg8IVAfPMNiDHVsEWls OQTjZVM7URT3HPOoFLUkVH1DYnXsYSMvZWLcCHQoKY JiJPVjsj7TAOFnXKBjQSXyKQUxCBMzYXAkSEnkYLXtPNB9XppqHRUhRFHpKN7XVnEfCUAqPZnkAZxdRO NrIJEnbs5USSDqXGVbFzDfHJAvDQVpCCXzNGpfWIAoZWG4IBI3OCEyUZKtRE2FClGaQSRfTWb9YZNcOU OeAFYwje6KXHBbFATqHWWhRQQiJEEwTPAuWAofDXKi BQD7RGFbNJKzGHQdWH8EKbSkSQKjFAu9UENcZAHnDYSvyn8CCEWzXMMvQLI1COVzRKAbFPKrIRb8gjVt dACsJMn7JG3QM9UiejGnVaGJVd5Cw492PQFfVYSqGj2XC6ybCo9bYAVdXFNZVz7BRHg4PNIbEpz4MpP5 SkZ6ItvfCqvoFTquBcKmPcN9VdOwMlW+BEd0VYLbNR leIgGbRBF0FZPuOsU9PEUdHLZzOKD4ECLrXi8vGONZMm2+NUfbmKRuvBodEGKYWzA5BNG0DVcmIYLHLw 0K ID Date Data Source [id number] 06/01/2020 02:04:49 PM [facility] Name Value Range Interpretation Code Description Data Irish rce(s) Supporting Document(s) Leukocytes [#/volume] in Blood by Automated count 11.8 10*3/uL 4-10 [facility] Erythrocytes [#/volume] in Blood by Automated count 4.62 10*6/uL 4.6- 6.1 [facility] Hemoglobin [Mass/volume] in Blood 15.2 g/dL 13.5-18 [facility] Hematocrit [Volume Fraction] of Blood by Automated count 45.3 % 4 1-53 [facility] Erythrocyte mean corpuscular volume [Entitic volume] by Auto mated count 98.1 fL 80-96 [facility] Erythrocyte mean corpuscular hemoglobin [Entitic mass] by Automated count 33.0 pg 27-33 [facility] Erythrocyte mean corpuscular hemoglobin concentration [Mass/volume] by Automated count 33.6 g/dL 32.0-36.0 [facility] E[facility]th[facility] distribution width [Ratio] by Automated count 13.6 % 11.5-14.5 [facility] Platelets [#/volume] in Blood by Automated count 278 10*3/uL 150-400 [facility] Differential cell count method - Blood [facility] Neutrophils/100 leukocytes in Blood by Automated count 70 % [facility] Lymphocytes/100 leukocytes in Blood by Automated count 15 % [facility] Monocytes/100 leukocytes in Blood by Automated count 10 % [facility] Eosinophils/100 leukocytes in Blood by Automated count 4 % [facility] Basophils/100 leukocytes in Blood by Automated count 1 % [facility] Neutrophils [#/volume] in Blood by Automated count 8.30 10*3/uL 1.8-7 .0 [facility] Lymphocytes [#/volume] in Blood by Automated count 1.82 10*3/uL 1.2-4 .0 [facility] Monocytes [#/volume] in Blood by Automated count 1.12 10*3/uL 0-0.8 [facility] Eosinophils [#/volume] in Blood by Automated count 0.48 10*3/uL 0-0.5 [facility] Basophils [#/volume] in Blood by Automated count 0.09 10*3/uL 0-0.2 [facility] Nucleated erythrocytes/100 leukocytes [Ratio] in Blood by Automated count 0 /100{WBCs} 0-0 [facility] ID Date Data Source [id number] 06/01/2020 02:58:59 PM [facility] Name Value Range Interpretation Code Description Data Irish rce(s) Supporting Document(s) Amylase [Enzymatic activity/volume] in Serum or Plasma 61 U/L 28- 103 [facility] ID Date Data Source [id number] 06/01/2020 02:58:59 PM [facility] Name Value Range Interpretation Code Description Data Irish rce(s) Supporting Document(s) Lipase [Enzymatic activity/volume] in Serum or Plasma 25 U/L 13-6 0 [facility] ID Date Data Source [id number] 06/01/2020 02:58:59 PM [facility] Value Range Interpretation Code Description Data Irish rce(s) Supporting Document(s) Albumin [Mass/volume] in Serum or Plasma by Bromocresol green (BCG) dye binding method 4.1 g/dL 3.5-5.2 [facility] Bilirubin.total [Mass/volume] in Serum or Plasma 0.2 mg/dL <1.2 [facility] Calcium [Mass/volume] in Serum or Plasma 9.4 mg/dL 8.6-10.0 [facility] Chloride [Moles/volume] in Serum or Plasma 107 mmol/L 98-107 [facility] Creatinine [Mass/volume] in Serum or Plasma 1.37 mg/dL 0.70-1.20 [facility] Glucose [Mass/volume] in Serum or Plasma 78 mg/dL 70-140 [facility] Alkaline phosphatase [Enzymatic activity/volume] in Serum or Plasma 106 U/L 40-129 [facility] Potassium [Moles/volume] in Serum or Plasma 4.3 mmol/L 3.4-5.1 [facility] Protein [Mass/volume] in Serum or Plasma 6.8 g/dL 6.4-8.3 [facility] Sodium [Moles/volume] in Serum or Plasma 142 mmol/L 136-145 [facility] Aspartate aminotransferase [Enzymatic activity/volume] in Serum or Plasma 13 U/L <40 [facility] Urea nitrogen [Mass/volume] in Serum or Plasma 18 mg/dL 6-20 [facility] Osmolality of Serum or Plasma by calculation 295 mosm/kg 275-300 [facility] Creatinine/Urea nitrogen [Mass Ratio] in Serum or Plasma 13 [facility] Bicarbonate [Moles/volume] in Serum 24 mmol/L 22-29 [facility] Alanine aminotransferase [Enzymatic activity/volume] in Seru m or Plasma 19 U/L <41 [facility] Anion gap 3 in Serum or Plasma 11 mmol/L 8-15 [facility] Glomerular filtration rate/1.73 sq M pre dicted among non-blacks [Volume Rate/Area] in Serum or Plasma by Creatinine-based formula (MDRD) 57 mL/min/1.73m2 >60 L [facility] Glomerular filtration rate/1.73 sq M pre dicted among blacks [Volume Rate/Area] in Serum or Plasma by Creatinine-based formula (MDRD) 67 mL/min/1.73m2 >60 [facility] ID Date Data Source [id number] 06/01/2020 02:58:59 PM [facility] Name Value Range Interpretation Code Description Data Irish rce(s) Supporting Document(s) Thyroxine (T4) free [Mass/volume] in Serum or Plasma 1.02 ng/dL 0.93- 1.70 [facility] ID Date Data Source [id number] 06/01/2020 02:58:59 PM [facility] Name Value Range Interpretation Code Description Data Irish rce(s) Supporting Document(s) Thyrotropin [Units/volume] in Serum or Plasma 3.250 u[IU]/mL 0.270-4. 200 [facility] ID Date Data Source [id number] 05/17/2020 09:07:03 AM EST [facility] Name Value Range Interpretation Code Description Data Irish rce(s) Supporting Document(s) Progress Note [facility] CLNWLj3lTvFZRgRv23/QZArpANCdp7YfZNasLNx5JSifFFTfJ2UsUPD2zQ3uCAZ5CPqIWpTcGaDzMlV5 lbm [file] /JyQSKZqrI3EZTkfe85pq6Hupm1JRoYNmVRHjc6wDiFZoTHoq6iW4cnSl6D6eSjQnfyip8lpP8Ie+learning program manager 2HFbZXnKV0ghhZVSHqi6x10g2ylJWihgnRoYOeTv58 jkXsxQOBBhkjF4cec+tLzDasPHyoFREzMXDMSQ1XeGn0FZYoI2YqBmPkH8F3LDyKiTmA2KkUDmkoJxYZ 0oPAKEi/u8kCfJOibz65ivBjiY5iVC3AtU+T5cyT+7OpnDg4WyCH6nDHYrFC1puhn/d8bDQfoBcEodhE seOdZ9orAa2hTB+dDblmFHB82qr7hC1abIiBkr1CvT 1L9Bh/SgGSd+C8lFXCLsn0aaPlmthru8uq6ApMUKc//CDaZarMla8K2ljyh9Vt/EVjuv6zxva4g8AZej S7qjqJ2WHpsZmzh1lDQ06IAnUt0pHZQRQQXbus0Aeu+sab3KAU+dDdA3S4cyqF9iOQhlW7/uUjH6qE9r swWcE6s5FfIVRkKEHeLx8WdKOdhawuRkbeU+RQfxbT hfsBeEijtLEIgTkUeLUn2Nn3YXEQnKB5iZDJ2RNhF2nedm2D9vdultZ8h+LwfDGTDhnQo8jX3Kj8DdC8 kXs7cekJh0KeXwiAxM1OSm4RtxgolZUpDElJCH00YEk/8K1tdry6HgxGIhyssphobV57G9RvfwDSL1c8 NEcAmXBO3Fxa6F0P+o8gxe/O5yQbUkE1fGkv3ZZgXA PYuFNiuQ0lmqJJyZ+alPcwa5CwZdGQLfoBVfFL94zvDTGk9d2VWFfrVfwqGMy9FGWBLkI0R+Gypsy/qVbc [file] ICAgICAgICAgICAgICAgICAgICAgICAgICAgICAgIC AgICAgICAgICAgICAgICAgICAgICAgICAgICAgICAgICAgICAgICAgICAgICAgICAgICAgICAgICAgDQ ogICAgICAgICAgICAgICAgICAgICAgICAgICAgICAgICAgICAgICAgICAgICAgICAgICAgICAgICAgIC AgICAgICAgICAgICAgICAgICAgICAgICAgICAgICAg ICAgICAgICAgDQogICAgICAgICAgICAgICAgICAgICAgICAgICAgICAgICAgICAgICAgICAgICAgICAg ICAgICAgICAgICAgICAgICAgICAgICAgICAgICAgICAgICAgICAgICAgICAgICAgICAgDQogICAgICAg ICAgICAgICAgICAgICAgICAgICAgICAgICAgICAgIC AgICAgICAgICAgICAgICAgICAgICAgICAgICAgICAgICAgICAgICAgICAgICAgICAgICAgICAgICAgIC AgDQogICAgICAgICAgICAgICAgICAgICAgICAgICAgICAgICAgICAgICAgICAgICAgICAgICAgICAgIC AgICAgICAgICAgICAgICAgICAgICAgICAgICAgICAg ICAgICAgICAgICAgDQogICAgICAgICAgICAgICAgICAgICAgICAgICAgICAgICAgICAgICAgICAgICAg ICAgICAgICAgICAgICAgICAgICAgICAgICAgICAgICAgICAgICAgICAgICAgICAgICAgICAgDQogICAg ICAgICAgICAgICAgICAgICAgICAgICAgICAgICAgIC AgICAgICAgICAgICAgICAgICAgICAgICAgICAgICAgICAgICAgICAgICAgICAgICAgICAgICAgICAgIC AgICAgDQogICAgICAgICAgICAgICAgICAgICAgICAgICAgICAgICAgICAgICAgICAgICAgICAgICAgIC AgICAgICAgICAgICAgICAgICAgICAgICAgICAgICAg ICAgICAgICAgICAgICAgDQogICAgICAgICAgICAgICAgICAgICAgICAgICAgICAgICAgICAgICAgICAg ICAgICAgICAgICAgICAgICAgICAgICAgICAgICAgICAgICAgICAgICAgICAgICAgICAgICAgICAgDQog ICAgICAgICAgICAgICAgICAgICAgICAgICAgICAgIC AgICAgICAgICAgICAgICAgICAgICAgICAgICAgICAgICAgICAgICAgICAgICAgICAgICAgICAgICAgIC YkLRJcTWTjTTl3H1osERXwGVTaTQ2iHPz9Zf7+YUbKOoGcLTP5azXuhP4QRQ9er3XlGAjvRIAlu8CiPQ k5BJ0SXCClQTtcAE0ECBjgfc1OWDApEAPeoXULf0bt LsYfJWT0LUMwDhzjTN5FWXPwH2tdwaCjREWfDBHGWXbyNCBXJWucUCYUTZIuTCKcCgKaSyLjAUMuUSGt MOYNEEC7SXCvFjFkNUBfNMUwON8OROLwX670rmLhFC9IUo4NDjVcEK5her6XUzuyNFYvCppPDgd4OHrz MC6SxICtaIV3LOIgJSURDiDzJ3qda5UqJRZkKMOMZZ rmEC5Um7XveNLzWSd+Vd7EDM5vo9StXTz9FJHwGD2abl4FXYoREeBwT2NrgWnmGOIue8pyGMWvQH8czH HnUPQ7UXQheFPpBGQJYRN0RTPvEBprUVLDMXE3ADAoCqQmWbMqUmWfSMG5IDBkGL4yUUhzMJ3LINQ3TD npWSMnVBTnY4iKXrHlUYPvDFBenQaqDX0UZgSsM8Lq cmVudCAzOSAwIFINCj4+XVcjbgTtGthVDaEkEXGgm0YbPFa5HV8KRTIuLRdrTR1VYRHbyB2jOYmcKC1H EbDqEgEvERYTJnJwB94dqONbYJt8X6ZfOoIbUHZcJofhRXJcWIkiHcNxUYVgMoTfNBpkEN8+ID4+DQog XG0DMUtshbPrBXQxWo0RUJNqRKIxOI9jIYEbICScJ1 Y1dBxvDOOWSdFgF9tpbmovXS1dGKUmX273xKfbmtWcDUU1JBPaFd1KXUIdCJG4XGSsgFCaRoeyDYKSEI goQI9WuIAzIOV0aT2aATwhSVJkPRJmA5dTTpJozZhyGN18rKhychLwjFFcPCz+Ef6JAP6zd4HwWPc1kr YmRDboPCRaJEeaZEDaCUIqZXPnEVZ9NVN7AIBOFdMk GARzZGVoNAlcAUXxFYClke9AAWAmORG4Zdr5BeQbNOHrVRSpHDilAVOqORJ3VjCnWHOxGBZsDJ4OLoIz ZAAaMJBnBJgnZMGuMRGwfk4RFIFzQCLyVRKnXGWbUGYlEIOiREyjPCNwKLM8GIS5JEQgVXEsRZ6TSjNj QIVnOYusWePfAZTfKYBlmw1LWVSmEYYlZQZ9GUFwVZ GcBWVoHYmrSCCwOHLbCORkJEHjXCBlRE0QYsGqZWGeUVZ0WEEaHTSbCCNxsw8WNMDfPDXkGUUrJFFoFH VnYFJoZKtzWJLqBEV9HbO1XPIxZQOeLA5LShVrDDJqKBj8CUAaZTVqXVSwbw9AKWHnOLHvXRNnRJWfLM IgLCIlPDlxLFVpLTJoHCh3OHOvXZOzBT3KIlHrTZJu QgLnIWWbOVBaUKOvia8CJKScMHJgYBAuBHHbJEWkBVNrFEhmQAToAGY6WJM4ICPaNQAoUG5ZGaMmHJTe GnUyTWZhAUCwYEIemo5VRCZmLRJiFaE5LcUeBLKpRDYbWJuaLJNwHLT1ToZiXMNmMDZyFS4AIzNjZQCw Pgs5XCzsTLOwATKtcs9BKNPvGYLxMiXgQuAhMGFeGI KhRUayWEGpEHY1MUBgGVDzROIvDS8LZlNdTEEgBrv8JiIyXJNiJSJckj6DVBBdMJFjHHb0NOQdMIXnYW QzXBstEDFbOTQmZnvzZYEfCZLhBO4PWtZsUYMcCZH6LDUvVURfBOXfzf1YVNUlLWC7MRqxDSQzZXExCB GwYByeETEgXCJyIOK5PGCmAAXlTW5YJrOlLYSpVSYw TOIkUKEnPTWola8FOGPyOIR1EaI3HBCzVXQfHJEbIEriMMMyRKOtLZHrVDApSERuEC4FOjRoUJTrYQH1 PcInNJSwIKKqav8PWIRjEXU7VeU6ZWEaVNNyVAXhZYwnTIGyTMRvOhE8QVJoXBDvPV6JOsCqHEReSRN0 SBLnOWHlPTYqqy8QHKKkUKA4PHK6ZkVhUJZgOEOjJQ pxDBTrTFD8WXN0HHQrWTCzNX3VPyWyDQBwAFO3ChfiCHBlRQPpuc9XLAWnTEI7BdP2RNIzXWKtXFXvKW g3odMmjJGgATe1TQ9EM6McdvJvDYSLGa2Wj420CDIrUFUkCt8RN8otYi7pVOZtQSGREx4GZWg9OfZ8SB T9GlQ7Wkg8NpP4SdDbENGwTrHuGAb0DFzgInF+IDwy BDL0ZCt0ARQhYUBuZMZoSCZvKaG2NUNnDZv6WFZ8VA9zKJCTIh7+NKfqrIDzqOrqOPTSDtC2AlJ8NBrz JDGYAf2Q ID Date Data Source [id number] 05/16/2020 12:26:[address] [facility] Name Value Range Interpretation Code Description Data Irish rce(s) Supporting Document(s) Progress Note [facility] FHKHIz8qSdLMDlWj57/VHDecQWOkl8KaAOwpHZb7JKcsYUQxM7WzWCF6bE4fCJP1ZNwUIvYpRbDxRqH1 lbm [file] ICAgICAgICAgICAgICAgICAgICAgICAgICAgICAgIC QhZOPaEMRxFKMuXYMfEXRnUMMdQYXzAKNiACXoPAFcFRXwLIQiYLTpSNBrLZNgICExMY0DGVMxJXLiVX AgICAgICAgICAgICAgICAgICAgICAgICAgICAgICAgICAgICAgICAgICAgICAgICAgICAgICAgICAgIC AgICAgICAgICAgICAgICAgICAgICAgICAgICAgICAg VR0GOPFnTQKgPJHvRSQjHWKbHHLzDNLcZLAsKTLoLYYaAZZkARDbVQLlMSOlZDLeMPWaKECbEJBlVSLh SXTnGEYzYFZkNXBcOMXqSUQjSTFrLGUrVKRcMZWlPGXwFNZmELHtPAJoBD7XFYTqAHLuOQOnIQEzJUNt ICAgICAgICAgICAgICAgICAgICAgICAgICAgICAgIC LuQRPaVUBrMRPdTJWbPOHhLSPrOWLqDKKxRUXpJWGwUQCyBVVtTKGlRKRhQRQpJTJzCIMjNM1XFILgAO AgICAgICAgICAgICAgICAgICAgICAgICAgICAgICAgICAgICAgICAgICAgICAgICAgICAgICAgICAgIC AgICAgICAgICAgICAgICAgICAgICAgICAgICAgICAg HCEqCW4IOWWnEUXzPWEyASHvCVOvDKQiICHfPQShBEOmLZIeELDuZCSlAZFeYWXgWUJmCQIaOWPcQBFj JPCxMQAtEFVkXTBlYKNgFHXrZAVjIYBaOJGvOBLiPCNtCOEyCQCmFXRdFWYnKB1NPXLkHEWwJRMoKKGp ICAgICAgICAgICAgICAgICAgICAgICAgICAgICAgIC AoTTTuFIZoJMDvDFIvWHQwHTHbLPWpPGJoMZInQRNqWTPoVXKyQAHbSRKnUQOeEJExVNUrLCDeOZ1GJP AgICAgICAgICAgICAgICAgICAgICAgICAgICAgICAgICAgICAgICAgICAgICAgICAgICAgICAgICAgIC AgICAgICAgICAgICAgICAgICAgICAgICAgICAgICAg AUMrDEYvOO2VLDWlKWEyABNgAZYdRMKpFLCzXIBzTDGwKEWjUJInANUjUKFxQHKyPHWfVFYmVGVqZZIq WJDiLTLcVZWfKGRvSHRcUIFcXUZeUQTmMWEvNGVpWJUgNZLiIANjDBDqZXYeHAXkKS9BYDKwMBMnYYEv ICAgICAgICAgICAgICAgICAgICAgICAgICAgICAgIC AgICAgICAgICAgICAgICAgICAgICAgICAgICAgICAgICAgICAgICAgICAgICAgICAgICAgICAgICAgIA 9LSI27uGNsn5X4FPMmFX3lkem/Ww2QCPswfoDcySEcFB2NXpZsVY6whb4PErKiXQ3igs5IYUzNMtEzH3 K0sNTzVNTnHTOZQoZxD20mBBygOb31SApfQTApAoYw TIk7Ze2XUuFhL3zkHDQmScN8FSQgPrKeVMbaIR4Dl1RgnOAmVDu+Gp9YRW0kf8FdZNbcCAMyWZ8uid0X PZaIXbApL0XvjaC7PWLzXZSpYi0EXBAxJPVniGUvZBBdLYTPYaFvV2CwcR08DTTYXd7+DQplbmRvYmoN IdVeCXNjt9YpWGe9YW1DOGJiSXr8sZWbZHJqU6Nsu7 HxTw08ZFVeAyowHYnmomQzIpMtcrW9ONIDBTDgrDFmDm2nGJ0nOGMqEHKkAxI1TVIJKX0KRDUkELSyhS UpWPYzQLXTHW4TVVnqGQM8WWDvzwIfwMTkJTxcDZ5OSHRtquXwIGatQPEAAYf+Lr3WTP0is1IxANvoJU PvAP2klb4IWCjYMsWtV1C5lYMfJ2L4VOfkQc7TMCNe LEFpBEubDPXWUFdmOI0EOH7sqyV1HZ8MeVEyOHSxYNCkgLTyTMm8G51qhXDiAUihVH4KRLI+Zeferino+Pg0K BFZpISRuPLUmLtBkIXOYXnUgR5QcU1ZMr1HiR4EzMR95kWjfimGkIXriRI9QTL0xGQMvVVWEET3WwBPl cS4srdRrRAYuXDUIHzWfU19jgNNdKJAhHQD5IULmFt 4MLIXuS7FfljHqlLujzoTwCZUjBNKYUU0BSXqsifHjfQAviHvmPE38dFxqCZ0YPt3CCkZhGF5rtx4RpJ StVl1GWJAzAt5NIKSqJHOuDFOcELC6LFLySgFcNLmgZRMqQOQmYVN2MWXpKUSdEF0NMkFuDMDcDKs7Qe PgTLDoTHCktj3SFZGzTNQxLGB6BSYhDRTwMEUjDYhf OZXsPOUnTBI8TCBkCFOpVX5DPzBnZVZhNKO8XOJpOHJgXNQywy3UFJMsBFMcXdG9MjFdHQKbIHJnIKbm TWMkZYXaNpY4LXBmUXYwJJ9QIvGlAITrUKB8FSWgDVEiMIYxla4VZUYnQXMqVab4YPChHRItTZRqQTad DZLxUEC0JXY4YBQtJGWiEX5ACyYoNQRtJCKmQQKrHY DcHLDydk3KURSsOFWwFVIiRXTdDDNgQQJkSNlqYVZoKPG1SalqMVPyEXVpJB7KPoCoEKDdXOtrOHbuMM HtWSNwnu9YWXQdJBYpKnSrVBAdBADhZFJhINanTWUjNSC4SYJ5AHJdIYYwVF6GLbUeDVDmPHn5FGSpTV MdWAGfae6XLHOuCUErLKLcGAKzVFYzBMYtISfqOJHp EMD0FUVzDKGaZNYcPO6RDiYsTDNkDXu5VCGuCTMbJEFyry6VCXEgBKBpPCP9ZOEgVPTcBEWnLVh4ypMe jYDwWAl6KJ3SO6MaiuZlZuQIEa2Bp805XOXpLLCxBx5XK5cnDf2cNUQaDCVXRo0NOTq9KUxeN8R0NnPl UOLvBKOaWlX1YiFeA5OoAZMeMSFoPzT+IDxkOWRjZD rzKvA2JzPoUvIoYDqyTuZ5FORgEgA4YeXiNd8uQATJCg4+CJukbUBlxBimBBHOGmS1QPQ8VNvtQTQVHe 0K ID Date Data Source [id number] 05/13/2020 01:26:[address] [facility] Name Value Range Interpretation Code Description Data Irish rce(s) Supporting Document(s) Leukocytes [#/volume] in Blood by Automated count 9.3 10*3/uL 4-10 [facility] Erythrocytes [#/volume] in Blood by Automated count 4.45 10*6/uL 4.6- 6.1 L [facility] Hemoglobin [Mass/volume] in Blood 14.7 g/dL 13.5-18 [facility] Hematocrit [Volume Fraction] of Blood by Automated count 44.1 % 4 1-53 [facility] Erythrocyte mean corpuscular volume [Entitic volume] by Auto mated count 99.1 fL 80-96 H [facility] Erythrocyte mean corpuscular hemoglobin [Entitic mass] by Automated count 33.1 pg 27-33 H [facility] Erythrocyte mean corpuscular hemoglobin concentration [Mass/volume] by Automated count 33.4 g/dL 32.0-36.0 [facility] distribution width [Ratio] by Automated count 13.8 % 11.5-14.5 [facility] Platelets [#/volume] in Blood by Automated count 297 10*3/uL 150-400 [facility] Differential cell count method - Blood [facility] Neutrophils/100 leukocytes in Blood by Automated count 62 % [facility] Lymphocytes/100 leukocytes in Blood by Automated count 20 % [facility] Monocytes/100 leukocytes in Blood by Automated count 10 % [facility] Eosinophils/100 leukocytes in Blood by Automated count 7 % [facility] Basophils/100 leukocytes in Blood by Automated count 1 % [facility] Neutrophils [#/volume] in Blood by Automated count 5.70 10*3/uL 1.8-7 .0 [facility] Lymphocytes [#/volume] in Blood by Automated count 1.89 10*3/uL 1.2-4 .0 [facility] Monocytes [#/volume] in Blood by Automated count 0.97 10*3/uL 0-0.8 H [facility] Eosinophils [#/volume] in Blood by Automated count 0.64 10*3/uL 0-0.5 H [facility] Basophils [#/volume] in Blood by Automated count 0.10 10*3/uL 0-0.2 [facility] Nucleated erythrocytes/100 leukocytes [Ratio] in Blood by Automated count 0 /100{WBCs} 0-0 [facility] ID Date Data Source [id number] 05/13/2020 02:05:16 PM [facility] Name Value Range Interpretation Code Description Data Irish rce(s) Supporting Document(s) Amylase [Enzymatic activity/volume] in Serum or Plasma 67 U/L 28- 103 [facility] ID Date Data Source [id number] 05/13/2020 02:05:16 PM [facility] Name Value Range Interpretation Code Description Data Irish rce(s) Supporting Document(s) Lipase [Enzymatic activity/volume] in Serum or Plasma 21 U/L 13-6 0 [facility] ID Date Data Source [id number] 05/13/2020 02:05:16 PM [facility] Name Value Range Interpretation Code Description Data Irish rce(s) Supporting Document(s) Albumin [Mass/volume] in Serum or Plasma by Bromocresol green (BCG) dye binding method 4.1 g/dL 3.5-5.2 [facility] Bilirubin.total [Mass/volume] in Serum or Plasma 0.3 mg/dL <1.2 [facility] Calcium [Mass/volume] in Serum or Plasma 9.2 mg/dL 8.6-10.0 [facility] Chloride [Moles/volume] in Serum or Plasma 108 mmol/L 98-107 H [facility] Creatinine [Mass/volume] in Serum or Plasma 1.23 mg/dL 0.70-1.20 H [facility] Glucose [Mass/volume] in Serum or Plasma 102 mg/dL 70-140 [facility] Alkaline phosphatase [Enzymatic activity/volume] in Serum or Plasma 108 U/L 40-129 [facility] Potassium [Moles/volume] in Serum or Plasma 4.4 mmol/L 3.4-5.1 [facility] Protein [Mass/volume] in Serum or Plasma 6.5 g/dL 6.4-8.3 [facility] Sodium [Moles/volume] in Serum or Plasma 141 mmol/L 136-145 [facility] Aspartate aminotransferase [Enzymatic activity/volume] in Serum or Plasma 16 U/L <40 [facility] Urea nitrogen [Mass/volume] in Serum or Plasma 19 mg/dL 6-20 [facility] Osmolality of Serum or Plasma by calculation 295 mosm/kg 275-300 [facility] Creatinine/Urea nitrogen [Mass Ratio] in Serum or Plasma 16 [facility] Bicarbonate [Moles/volume] in Serum 24 mmol/L 22-29 [facility] Alanine aminotransferase [Enzymatic activity/volume] in Seru m or Plasma 19 U/L <41 [facility] Anion gap 3 in Serum or Plasma 10 mmol/L 8-15 [facility] Glomerular filtration rate/1.73 sq M pre dicted among non-blacks [Volume Rate/Area] in Serum or Plasma by Creatinine-based formula (MDRD) 65 mL/min/1.73m2 >60 [facility] Glomerular filtration rate/1.73 sq M pre dicted among blacks [Volume Rate/Area] in Serum or Plasma by Creatinine-based formula (MDRD) 76 mL/min/1.73m2 >60 [facility] ID Date Data Source [id number] 05/13/2020 02:05:16 PM [facility] Name Value Range Interpretation Code Description Data Irish rce(s) Supporting Document(s) Thyroxine (T4) free [Mass/volume] in Serum or Plasma 0.99 ng/dL 0.93- 1.70 [facility] ID Date Data Source [id number] 05/13/2020 02:05:16 PM [facility] Name Value Range Interpretation Code Description Data Irish rce(s) Supporting Document(s) Thyrotropin [Units/volume] in Serum or Plasma 3.110 u[IU]/mL 0.270-4. 200 [facility] ID Date Data Source [id number] 05/16/2020 04:28:00 [facility] [facility] CYTOPATHOLOGY REPORTName: RYAN CHUNGMRN: [id number] Number: [id number] Date: 05/13/2020 12:57Received Date: [...] cells and debris in the background./ld Gross Sxrrusksqpe23 ml cloudy yellow fluid received: 1 Thin- layer Pap stained slideprepared by filter preparation. This report may include one or more immunohistochemical stain results thatuse analyte specific reagents. All positive and negative controls havebeen reviewed by the attending pathologist and are satisfactory. The testswere developed and their performance characteristics determined by [facility] Pathololgy department. They have not been cleared or approved by [place] Food and Drug Administration. The FDA has determined that suchclearance or approval is not necessary. Name Value Range Interpretation Code Description Data Irish rce(s) Supporting Document(s) ID Date Data Source [id number] 05/06/2020 04:38:33 PM [facility] Name Value Range Interpretation Code Description Data [facility] rce(s) Supporting Document(s) Progress Note [facility] MQFNXy7iZxUJNvBf22/AKKrbUITaf9KrYKnlKEc1FRcqFFGcK6ImTKG5tK9kMUF7EKnDLgJhOkObXwM6 [facility] [file] RwF7RuDEOwWpFY3GSMf= ID Date Data Source [id number] 05/06/2020 04:38:28 PM [facility] Name Value Range Interpretation Code Description Data Irish rce(s) Supporting Document(s) Progress Note [facility] KDUDDo2kStRIJgLz27/ZSVqcCUTjp2XeJRwlQUn4UOczDHDaW0KdHLG4kO1qNEW3LIvOQxOlJzFiHeL9 lbm [file] ICAgICAgICAgICAgICAgICAgICAgICAgICAgICAgICAgICAgICAgICAgICAgICAgICAgICAgICAgICAg ICAgICAgICAgICANCiAgICAgICAgICAgICAgICAgICAgICAgICAgICAgICAgICAgICAgICAgICAgICAg ICAgICAgICAgICAgICAgICAgICAgICAgICAgICAgIC AgICAgICAgICAgICAgICAgICAgICANCiAgICAgICAgICAgICAgICAgICAgICAgICAgICAgICAgICAgIC AgICAgICAgICAgICAgICAgICAgICAgICAgICAgICAgICAgICAgICAgICAgICAgICAgICAgICAgICAgIC AgICANCiAgICAgICAgICAgICAgICAgICAgICAgICAg ICAgICAgICAgICAgICAgICAgICAgICAgICAgICAgICAgICAgICAgICAgICAgICAgICAgICAgICAgICAg ICAgICAgICAgICAgICANCiAgICAgICAgICAgICAgICAgICAgICAgICAgICAgICAgICAgICAgICAgICAg ICAgICAgICAgICAgICAgICAgICAgICAgICAgICAgIC AgICAgICAgICAgICAgICAgICAgICAgICANCiAgICAgICAgICAgICAgICAgICAgICAgICAgICAgICAgIC AgICAgICAgICAgICAgICAgICAgICAgICAgICAgICAgICAgICAgICAgICAgICAgICAgICAgICAgICAgIC AgICAgICANCiAgICAgICAgICAgICAgICAgICAgICAg ICAgICAgICAgICAgICAgICAgICAgICAgICAgICAgICAgICAgICAgICAgICAgICAgICAgICAgICAgICAg ICAgICAgICAgICAgICAgICANCiAgICAgICAgICAgICAgICAgICAgICAgICAgICAgICAgICAgICAgICAg ICAgICAgICAgICAgICAgICAgICAgICAgICAgICAgIC AgICAgICAgICAgICAgICAgICAgICAgICAgICANCiAgICAgICAgICAgICAgICAgICAgICAgICAgICAgIC AgICAgICAgICAgICAgICAgICAgICAgICAgICAgICAgICAgICAgICAgICAgICAgICAgICAgICAgICAgIC AgICAgICAgICANCiAgICAgICAgICAgICAgICAgICAg ICAgICAgICAgICAgICAgICAgICAgICAgICAgICAgICAgICAgICAgICAgICAgICAgICAgICAgICAgICAg ICAgICAgICAgICAgICAgICAgICANCjw/mXNhS9oxsKRnajX1T3ohKw7WJl6UJN7rw5BiCKLsWZqjhoQg FllFQlTuEZSiQlwTHom7YJyzRR4TeZGhK2BjH3GzFM rjNA3CVNDjSXIzkQJyBFEmBCZmIkE9CQSyNZkcMU5KhJMvGUkxOTIyTPPyHmMbYQMoWURjDXMwLTSoJN WKGDRcJFFpEyZcQREoMHDtET4QOQBrV435lyVhUw3LWp5NWmMkDI9ejy9NVsukLNHtGqsFGvg9XAiuFC 7WyMIxbGKlJICkVNHHTfPcN3tjf8ZzLqcsPEGVPAds ZB1Zs0ShpEJjRLu+Pr6RJV2pp0QuTFmlPOVvRE0foc1KGIlYYbZbI3DwxUalDCSil6wmBTJrYK2fuOFb SDA5OIGptYGlSOSPWRA2OEGoZZppNGMEOAF6ZLYhClOwRtMjKjLqKWU3CzMdNJ3gIVcuSK6CLCI1PBbn FSPzKELoT6uDPrQaPYVxGRZabGbbEJ1LTiAsI5Ktfw VudCAzOCAwIFINCj4+MSbhkuPrUasIMbKoGOIts2YmNJo5RI4HVCBqSBnpOM7AIPUliK6yTJgvUT4XMk JvDsPnHIVNUxUyR49mmKAdYHr7T0HtMaSvUEHoRbqjDKVkDYgdEnPwYATqZeLcVRnfFR6+ID4+DQogIC 8ZJBaqmjSlWSGtWv7TMFEkJUKgQZ7eVXDrZRTbC0V7 iDlkQKOFVsSyE2ggewwkIH1vQCIhR270sTzgiyKqZVP1IBNoOy6KVXRgHJG2ABJriRStSmjiEPTEEDrl SV6YxMQqGLI2eM7uGValECDeMXPuQ9bVXgNndBqoRB98rFwwmoLitWEyNBg+Dr1YSM6di6TfJRc7lkPi QPedPXGbVRuaTJPuZMPsRFCgHNK0IPB1CYSMDkHhVQ HvEFQcLOudYKQkHBKavi9CFJPhDFD1TJX5BZHjPPZdTYHtRRrmXYUjNYHeGhLyIMIyBTBkGK4CGcHcRJ VpJMJkHYfqPNPwRUPphs0PHPDkLPPmNVZaFZQaZZBeFIKlTNqqFBUqRXG1JEE3LYWzKGPjZJ3FMuVsAV DwWUprWkEcHSYrFDEirx8ZHJLyEECvATD7USPrIOHo IBHiTBpdAXKkZCUrIVSaSZYyYMLjHZ6UIyTjGLBdJJT2GQYtRREsUNWcze6DRJBqYYJkKWIwCPDzUVOv UPJiXDbvTRGdEBO9YvHaTCVvUKZgBE1BTiQwDVCvAAmcXLEoAYPdXGRoim4BYIDjXYTjMKV9OUOkYZMe FXRlPLjeACArFPBpGaxpIGQeXZIwKM4FQeDyVHGnTg P0HhrqVIYuMLBjkz5ELMVzDBLrIiGtLBDgCXLqULMcIEqrVUNhHRPkOfE2OJFoFRWlPZ1URaNsNPHdBm B0HJxhEAShHHRlwu4POSIxEMWzHtq3PrPwIQLsYYTbHPaiQWXaEJFbSQv2ZXLnLWJiWL0NDpZrSSOnCq YhNmuvPGJzPVWrgs9ZMLZoKPAmCJV8AvMgZCApFRGf YUerEHLjBFC2HITbKREcQWLfCZ6NQiUyNOZuQbVsIkEuZVXdDKVgpw9IPDYsCUAcPrX4TVAuAJBcENNq LCmjSXTpRIW6AJA6MAMpQKKzDV2WDaZmUOYqGcv8NyCfYIJxHEOcsb4JFWEpLCWzAxB8FSDmGQEmGYCa NZpxVOLdWXD7DVL3KXUgKLCiMP5XMfFtIOSlZhy4OJ WjZKObVGHabv1KIVHpSFPcCOo0OuOqGAHlYHDnCFpfLETnJCK6ICBeJBKwJRIcMB0KVkMoVOLjCXNhPl UfLAAcXATxtv5KCYEuXFS9HWS1NGOwGFLdLDLlYObtXHXiWCRpKFXtBYKpJURwQO7XKrBaZCZlXHS8OA VyDMWnKFDfly3QMUCfILZ1GhO4UyLoXHRrQMRaGKiv EASvDKIhDOIfXJAoUUDjXA1ATdKdPGSuYJF9KZKqJEOwFDPdjn6RqMWzvKioos9WXUvRQe1RlSsfPAIe PZgzEd3bbQQ4QATkJIBPHh8RufSqCTZfZGQNSThiNOQuRKLlMMT3KSCvCcOsHuMbDFd0HUZoWRWcClYb AHwtUQVdExS3MLO1OxmwGFXxYAU0WPM7SKB4IvN7IM OpWCX8N8QhTuI+KI5bXNp+Zd7Dl9UhjuP7pkUsYQs5MvfbUY8CYVLEL6ZECx== ID Date Data Source [id number] 04/22/2020 01:26:[address] [facility] Name Value Range Interpretation Code Description Data Irish rce(s) Supporting Document(s) Leukocytes [#/volume] in Blood by Automated count 11.1 10*3/uL 4-10 [facility] Erythrocytes [#/volume] in Blood by Automated count 4.37 10*6/uL 4.6- 6.1 L [facility] Hemoglobin [Mass/volume] in Blood 14.5 g/dL 13.5-18 [facility] Hematocrit [Volume Fraction] of Blood by Automated count 43.5 % 4 1-53 [facility] Erythrocyte mean corpuscular volume [Entitic volume] by Auto mated count 99.4 fL 80-96 [facility] Erythrocyte mean corpuscular hemoglobin [Entitic mass] by Automated count 33.1 pg 27-33 [facility] Erythrocyte mean corpuscular hemoglobin concentration [Mass/volume] by Automated count 33.3 g/dL 32.0-36.0 [facility] distribution width [Ratio] by Automated count 14.0 % 11.5-14.5 [facility] Platelets [#/volume] in Blood by Automated count 300 10*3/uL 150-400 [facility] Differential cell count method - Blood [facility] Neutrophils/100 leukocytes in Blood by Automated count 63 % [facility] Lymphocytes/100 leukocytes in Blood by Automated count 20 % [facility] Monocytes/100 leukocytes in Blood by Automated count 10 % [facility] Eosinophils/100 leukocytes in Blood by Automated count 6 % [facility] Basophils/100 leukocytes in Blood by Automated count 1 % [facility] Neutrophils [#/volume] in Blood by Automated count 7.08 10*3/uL 1.8-7 .0 [facility] Lymphocytes [#/volume] in Blood by Automated count 2.20 10*3/uL 1.2-4 .0 [facility] Monocytes [#/volume] in Blood by Automated count 1.08 10*3/uL 0-0.8 [facility] Eosinophils [#/volume] in Blood by Automated count 0.66 10*3/uL 0-0.5 [facility] Basophils [#/volume] in Blood by Automated count 0.13 10*3/uL 0-0.2 [facility] Nucleated erythrocytes/100 leukocytes [Ratio] in Blood by Automated count 0 /100{WBCs} 0-0 [facility] ID Date Data Source [id number] 04/22/2020 02:10:23 PM [facility] Name Value Range Interpretation Code Description Data Irish rce(s) Supporting Document(s) Amylase [Enzymatic activity/volume] in Serum or Plasma 62 U/L 28- 103 [facility] ID Date Data Source [id number] 04/22/2020 02:10:23 PM [facility] Name Value Range Interpretation Code Description Data Irish rce(s) Supporting Document(s) Lipase [Enzymatic activity/volume] in Serum or Plasma 22 U/L 13-6 0 [facility] ID Date Data Source [id number] 04/22/2020 02:10:23 PM [facility] Name Value Range Interpretation Code Description Data Irish rce(s) Supporting Document(s) Albumin [Mass/volume] in Serum or Plasma by Bromocresol green (BCG) dye binding method 4.2 g/dL 3.5-5.2 [facility] Bilirubin.total [Mass/volume] in Serum or Plasma 0.3 mg/dL <1.2 [facility] Calcium [Mass/volume] in Serum or Plasma 8.8 mg/dL 8.6-10.0 [facility] Chloride [Moles/volume] in Serum or Plasma 102 mmol/L 98-107 [facility] Creatinine [Mass/volume] in Serum or Plasma 1.19 mg/dL 0.70-1.20 [facility] Glucose [Mass/volume] in Serum or Plasma 84 mg/dL 70-140 [facility] Alkaline phosphatase [Enzymatic activity/volume] in Serum or Plasma 94 U/L 40-129 [facility] Potassium [Moles/volume] in Serum or Plasma 4.2 mmol/L 3.4-5.1 [facility] Protein [Mass/volume] in Serum or Plasma 6.3 g/dL 6.4-8.3 L [facility] Sodium [Moles/volume] in Serum or Plasma 133 mmol/L 136-145 [facility] Aspartate aminotransferase [Enzymatic activity/volume] in Serum or Plasma 14 U/L <40 [facility] Urea nitrogen [Mass/volume] in Serum or Plasma 18 mg/dL 6-20 [facility] Osmolality of Serum or Plasma by calculation 277 mosm/kg 275-300 [facility] Creatinine/Urea nitrogen [Mass Ratio] in Serum or Plasma 15 [facility] Bicarbonate [Moles/volume] in Serum 24 mmol/L 22-29 [facility] Alanine aminotransferase [Enzymatic activity/volume] in Seru m or Plasma 15 U/L <41 [facility] Anion gap 3 in Serum or Plasma 7 mmol/L 8-15 [facility] Glomerular filtration rate/1.73 sq M pre dicted among non-blacks [Volume Rate/Area] in Serum or Plasma by Creatinine-based formula (MDRD) 68 mL/min/1.73m2 >60 [facility] Glomerular filtration rate/1.73 sq M pre dicted among blacks [Volume Rate/Area] in Serum or Plasma by Creatinine-based formula (MDRD) 79 mL/min/1.73m2 >60 [facility] ID Date Data Source [id number] 04/22/2020 02:10:23 PM [facility] Name Value Range Interpretation Code Description Data Irish rce(s) Supporting Document(s) Thyroxine (T4) free [Mass/volume] in Serum or Plasma 0.98 ng/dL 0.93- 1.70 [facility] ID Date Data Source [id number] 04/22/2020 02:10:23 PM [facility] Value Range Interpretation Code Description Data Irish rce(s) Supporting Document(s) Thyrotropin [Units/volume] in Serum or Plasma 2.850 u[IU]/mL 0.270-4. 200 [facility] ID Date Data Source [id number] 04/03/2020 01:51:18 PM 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 5EzTPLz+25bjOB2ApAEylWhB5pnb84hhoqYoG7+UF6 sKhIPZrJrNLqrx/YaaekBsSMP3acC8ic3jy2qCbwyJmtxDBIQIBtCfAUDgOts6gJw9w3D035Stus3WFk GDyZeMazQlx0RWvZ/NG83V5pAiWypzycGN5zHFXpNavz85DD7vRygOMS54dYuWy2MrOo8mmTsMjd0cxT uaZ1+mUYhcskU9lk7cb/Ux2EnFxSHRNx+XnQM2s/Bg Kks3BZb+LeCkkENwFAdxCBzavgydDWWy/ZFjQYrKJypCx/dtUpGaxumIJ1DKVXr9QIzKCXK0+d9p4CMF f7U/NRjh+4SN8JN0jUrs1ueLHLpgLdnW1nUwCZ8Vn1aOqMAKalsFnFVcHJZPmYDrOpXYgaSYrbPIAa5m sp/AibgTAdE9b8sdnqCbwEqB7joznr88107gwuFzQ7 00tVlRcmq2ehZ8mazd6XaWsqMrchfvPW1Ae7mKYIm59Vi1KsruYnlXTKFw4Qew/UmWypJYLakRvRZ9oz 7dApeeBNbcEtI/DCfQgiBpUOSL5x6k56oqSEJAgQbEpO0PDWGgKDV3XgFiZB10wwjrBEYVpkOW5FAgD9 mXnIkA4YHwMMeLbCsP8Fxngs6Ne/zjklWyt/dw/QL6 ZA3C/7DiLJnFUhzLf9HXDTYyyg4qjGFB4vWgrSsFKJ+PvANoGWW2BdHdUGrbg8HVLFxhE/GKDxUxHFsf Lvc7CYNBLIILE81HOaMJXe3NWbDj3DEoosy/qVJaV0Jx8973ZOOEM8JPOJvZKxZoYdfSFCqEDJN3fKj8 Ig+SLGGJaRLSQmg8b7sHAWptFLiwiTC2OBWEMUOFBE [file] NYO1bKZyEd0AFEKcSoRVIzWnPY1MUQk= ID Date Data Source [id number] 04/03/2020 01:51:13 PM [facility] Name Value Range Interpretation Code Description Data Irish rce(s) Supporting Document(s) Progress Note [facility] IWRSYm2dWpOUVlCk02/ESLfcXFYjj1SjCLshJKc0LGhiHTKiG7VsCAC3zK8aVKV6CXkEEgAnMiFzXCFx lbm [file] FKAeYhTwUVK0QJfhK4T0ReW3PUR4ZDR8XHD+IF0g DQo+Vq6Hp2KkrxJ2jpVdORjkBXZ0YR0VEVWQG6UGOu== ID Date Data Source [id number] 04/03/2020 09:30:00 AM EST [facility] Name Value Range Interpretation Code Description Data Irish rce(s) Supporting Document(s) SARS coronavirus 2 RNA [facility] This lab was ordered by [facility] and reported by [facility]. ID Date Data Source [id number] 04/01/2020 01:12:23 PM T [facility] <0.1Serum levels of PSA should [...] by Automated count 11.7 10*3/uL 4-10 [facility] Erythrocytes [#/volume] in Blood by Automated count 4.33 10*6/uL 4.6- 6.1 L [facility] Hemoglobin [Mass/volume] in Blood 14.4 g/dL 13.5-18 [facility] Hematocrit [Volume Fraction] of Blood by Automated count 43.1 % 4 1-53 [facility] Erythrocyte mean corpuscular volume [Entitic volume] by Auto mated count 99.6 fL 80-96 [facility] Erythrocyte mean corpuscular hemoglobin [Entitic mass] by Automated count 33.2 pg 27-33 [facility] Erythrocyte mean corpuscular hemoglobin concentration [Mass/volume] by Automated count 33.4 g/dL 32.0-36.0 [facility] Erythrocyte distribution width [Ratio] by Automated count 13.9 % 11.5-14.5 [facility] Platelets [#/volume] in Blood by Automated count 298 10*3/uL 150-400 [facility] Differential cell count method - Blood [facility] Neutrophils/100 leukocytes in Blood by Automated count 67 % [facility] Lymphocytes/100 leukocytes in Blood by Automated count 19 % [facility] Monocytes/100 leukocytes in Blood by Automated count 9 % [facility] Eosinophils/100 leukocytes in Blood by Automated count 4 % [facility] Basophils/100 leukocytes in Blood by Automated count 1 % [facility] Neutrophils [#/volume] in Blood by Automated count 7.86 10*3/uL 1.8-7 .0 H [facility] Lymphocytes [#/volume] in Blood by Automated count 2.25 10*3/uL 1.2-4 .0 [facility] Monocytes [#/volume] in Blood by Automated count 1.05 10*3/uL 0-0.8 [facility] Eosinophils [#/volume] in Blood by Automated count 0.44 10*3/uL 0-0.5 [facility] Basophils [#/volume] in Blood by Automated count 0.11 10*3/uL 0-0.2 [facility] Nucleated erythrocytes/100 leukocytes [Ratio] in Blood by Automated count 0 /100{WBCs} 0-0 [facility] ID Date Data Source [id number] 04/01/2020 01:53:21 PM [facility] <0.1Serum levels of PSA should not be in terpreted as absolute evidence of the presence or absence of Cancer. Results obtained with different methods cannot be used interchangeably. This method is manufactured by [employer] and is an electrochemiluminesence immunoassay. Name Value Range Interpretation Code Description Data Irish rce(s) Supporting Document(s) Amylase [Enzymatic activity/volume] in Serum or Plasma 77 U/L 28- 103 [facility] ID Date Data Source [id number] 04/01/2020 01:53:21 PM [facility] <0.1Serum levels of PSA should not be in terpreted as absolute evidence of the presence or absence of Cancer. Results obtained with different methods cannot be used interchangeably. This method is manufactured by [employer] and is an electrochemiluminesence immunoassay. Name Value Range Interpretation Code Description Data Irish rce(s) Supporting Document(s) Thyroxine (T4) free [Mass/volume] in Serum or Plasma 1.03 ng/dL 0.93- 1.70 [facility] ID Date Data Source [id number] 04/01/2020 01:53:21 PM [facility] <0.1Serum levels of PSA should not be in terpreted as absolute evidence of the presence or absence of Cancer. Results obtained with different methods cannot be used interchangeably. This method is manufactured by [employer] and is an electrochemiluminesence immunoassay. Name Value Range Interpretation Code Description Data Irish rce(s) Supporting Document(s) Thyrotropin [Units/volume] in Serum or Plasma 2.040 u[IU]/mL 0.270-4. 200 [facility] ID Date Data Source [id number] 04/01/2020 01:53:21 PM [facility] <0.1Serum levels of PSA should not be in terpreted as absolute evidence of the presence or absence of Cancer. Results obtained with different methods cannot be used interchangeably. This method is manufactured by [employer] and is an electrochemiluminesence immunoassay. Name Value Range Interpretation Code Description Data Irish rce(s) Supporting Document(s) Lipase [Enzymatic activity/volume] in Serum or Plasma 34 U/L 13-6 0 [facility] ID Date Data Source [id number] 04/01/2020 01:53:21 PM [facility] <0.1Serum levels of PSA should not be in terpreted as absolute evidence of the presence or absence of Cancer. Results obtained with different methods cannot be used interchangeably. This method is manufactured by [employer] and is an electrochemiluminesence immunoassay. Name Value Range Interpretation Code Description Data Irish rce(s) Supporting Document(s) Albumin [Mass/volume] in Serum or Plasma by Bromocresol green (BCG) dye binding method 4.2 g/dL 3.5-5.2 [facility] Bilirubin.total [Mass/volume] in Serum or Plasma 0.3 mg/dL <1.2 [facility] Calcium [Mass/volume] in Serum or Plasma 9.0 mg/dL 8.6-10.0 [facility] Chloride [Moles/volume] in Serum or Plasma 106 mmol/L 98-107 [facility] Creatinine [Mass/volume] in Serum or Plasma 1.40 mg/dL 0.70-1.20 [facility] Glucose [Mass/volume] in Serum or Plasma 99 mg/dL 70-140 [facility] Alkaline phosphatase [Enzymatic activity/volume] in Serum or Plasma 94 U/L 40-129 [facility] Potassium [Moles/volume] in Serum or Plasma 4.5 mmol/L 3.4-5.1 [facility] Protein [Mass/volume] in Serum or Plasma 6.6 g/dL 6.4-8.3 [facility] Sodium [Moles/volume] in Serum or Plasma 139 mmol/L 136-145 [facility] Aspartate aminotransferase [Enzymatic activity/volume] in Serum or Plasma 17 U/L <40 [facility] Urea nitrogen [Mass/volume] in Serum or Plasma 23 mg/dL 6-20 [facility] Osmolality of Serum or Plasma by calculation 292 mosm/kg 275-300 [facility] Creatinine/Urea nitrogen [Mass Ratio] in Serum or Plasma 16 [facility] Bicarbonate [Moles/volume] in Serum 23 mmol/L 22-29 [facility] Alanine aminotransferase [Enzymatic activity/volume] in Seru m or Plasma 19 U/L <41 [facility] Anion gap 3 in Serum or Plasma 10 mmol/L 8-15 [facility] Glomerular filtration rate/1.73 sq M pre dicted among non-blacks [Volume Rate/Area] in Serum or Plasma by Creatinine-based formula (MDRD) 56 mL/min/1.73m2 >60 [facility] Glomerular filtration rate/1.73 sq M pre dicted among blacks [Volume Rate/Area] in Serum or Plasma by Creatinine-based formula (MDRD) 65 mL/min/1.73m2 >60 [facility] ID Date Data Source [id number] 04/01/2020 02:29:02 PM EDT [facility] <0.1Serum levels of PSA should not be in terpreted as absolute evidence of the presence or absence of Cancer. Results obtained with different methods cannot be used interchangeably. This method is manufactured by [employer] and is an electrochemiluminesence immunoassay. Name Value Range Interpretation Code Description Data Irish rce(s) Supporting Document(s) Prostate Specific Ag Free [Mass/volume] in Serum or Plasma [facility] Not Applicable ID Date Data Source [id number] 03/14/2020 09:41:40 PM EDT [facility] Name Value Range Interpretation Code Description Data Irish rce(s) Supporting Document(s) Progress Note [facility] IXUYTe5oPpAYPnQu62/IPHchWHElr7OmROuwPCp6XYveBASbC3EsDVM3vR2bLWA3KWiKDkCeAbYdKBZf lbm [file] H3BOJ3AEczAUYmYCGfMgP9QAE+BW5hAYh+Dy0Ww4DdpfQ8kvFuFXnkZOq7Mk5IOHRQK3ARNv== ID Date Data Source [id number] 03/14/2020 09:41:35 PM EDT [facility] Name Value Range Interpretation Code Description Data Irish rce(s) Supporting Document(s) Progress Note [facility] ISNWNi4rDpYBMjMt47/PJWkhZBQis5BfMBlnEQk0YMqiBCQrX0JhRBE7sO6vKOQ2BRdBEaQiZtIkXIVo lbm JaVsoKNgYiFVPcEsfNAdZlKYfyJpfgpCJrLM0KaGP8TYJhX71fNVOjLUTfF5AqOYIkJkv+Zo1HXQTdkL VyPQ3SJxlF0X3hhawV1t4X/4MEzxUpkOFR0L2ALxWPwmnRjeBDW5H1R6gTncWckL3QIvh2SM+8Kw2p6v wzJxlpKNtpEgTWyQzP/QVK9YrlD6+dwb6mccRqf8uF fijYeM7+/JlSG6GOkms2IA1AGydjhDs3lWno8/hKQUwE8nqNXPzmhXeJa4yvKNj4uYt5dav2jF1koLq6 GjVlIN0vxQq+bHByxOzAckPXPn/+nI1+N4cs0s2zctgaRD2oW8xvUyFUPajyeZUHGHRArf1nvpciPno5 s4c0sZI2DqgLBqeQWcOBGcu9LQQyno5TjtmLKJ7AF8 BZIFQlO2LHWb7C92XyZBSBfmM06ivWo5PfgJuBu5utSOFLxaG2oTGuFHO6rr0VnHw5nuUu8VRR4yHLkF aBuwTYW6srvCaOQ7aYilYnt0MR4rLzmv13/n34oSnSrOpEvUSMWJ9DoxLQaFkh4xHTIJEU7KEp/l64x8 P5Y5FF6DnaLb+jeztHk4b0vmJC08VR0MvQc4njLBpN 64BgMuOIAA9eiLcoMlyi6bY/gT1S4RUJuu6RDN6cKPH6x4SIrnWVoViRFd1MyUG81/eDXd/zfdkAvEnm nuzFLwQqqRtPYXYP1GgSV0hAV9iwWXW6pNcLf5TfwfHoEtIbcuSKkcLBPLs/KzS2vpXElWmn8dvWdDAd XpyUoip0fuWWUQpGaZJZY1CMP3BNENsCN9PMGDRMzs [file] ICAgICAgICAgICAgICAgICAgICAgICAgICAgICAgICAgICAgICAgICAgICAgICAgICAgICAgICAgICAg ICAgICAgICAgICAgICAgICAgICAgICAgICAgICAgIC AgICAgICANCiAgICAgICAgICAgICAgICAgICAgICAgICAgICAgICAgICAgICAgICAgICAgICAgICAgIC AgICAgICAgICAgICAgICAgICAgICAgICAgICAgICAgICAgICAgICAgICAgICAgICANCiAgICAgICAgIC AgICAgICAgICAgICAgICAgICAgICAgICAgICAgICAg ICAgICAgICAgICAgICAgICAgICAgICAgICAgICAgICAgICAgICAgICAgICAgICAgICAgICAgICAgICAN CiAgICAgICAgICAgICAgICAgICAgICAgICAgICAgICAgICAgICAgICAgICAgICAgICAgICAgICAgICAg ICAgICAgICAgICAgICAgICAgICAgICAgICAgICAgIC AgICAgICAgICANCiAgICAgICAgICAgICAgICAgICAgICAgICAgICAgICAgICAgICAgICAgICAgICAgIC AgICAgICAgICAgICAgICAgICAgICAgICAgICAgICAgICAgICAgICAgICAgICAgICAgICANCiAgICAgIC AgICAgICAgICAgICAgICAgICAgICAgICAgICAgICAg ICAgICAgICAgICAgICAgICAgICAgICAgICAgICAgICAgICAgICAgICAgICAgICAgICAgICAgICAgICAg ICANCiAgICAgICAgICAgICAgICAgICAgICAgICAgICAgICAgICAgICAgICAgICAgICAgICAgICAgICAg ICAgICAgICAgICAgICAgICAgICAgICAgICAgICAgIC AgICAgICAgICAgICANCiAgICAgICAgICAgICAgICAgICAgICAgICAgICAgICAgICAgICAgICAgICAgIC AgICAgICAgICAgICAgICAgICAgICAgICAgICAgICAgICAgICAgICAgICAgICAgICAgICAgICANCiAgIC AgICAgICAgICAgICAgICAgICAgICAgICAgICAgICAg ICAgICAgICAgICAgICAgICAgICAgICAgICAgICAgICAgICAgICAgICAgICAgICAgICAgICAgICAgICAg ICAgICANCiAgICAgICAgICAgICAgICAgICAgICAgICAgICAgICAgICAgICAgICAgICAgICAgICAgICAg ICAgICAgICAgICAgICAgICAgICAgICAgICAgICAgIC AgICAgICAgICAgICAgICANCjw/jERhV4qzoIRoepM7Z1ncDv9XDy3RBV8bd0HuMYTkIUfljhTzKxmMBu ImIHHjOgoQLbx4PFijXG5WaSBxI6KbQ3SlKJfnZX6SWUKtGHNmiSPlRQRoRAAlMmC7SAFxOCxpDB8OtT RzIFsgNSAwIFIgOCAwIFIgMTAgMCBSIDEyIDAgUiAx DKEdPASsJYEwCCOAWU3LGqHlX0YrgJ44LZFIYu9+GMwkvzFwRitEJqN2GDTdi7LvXQa5GM5OYXIkWqdl q3MkVBPuBXTVBGgyUI1CICP6SDBoAZZzSj4IXLAqE491eoBmFH0NWj8WUxEbML2wxw1EULMeDMQoRdtG Beb0LJdqJC1BnUIjFZiRso6hjcTsnzWGl5JkbcVknX BBhathTJDpXHEngIttAC3ETSM4ZSOrSiphGmCbUHOgYSwuQLWTLRqWCoRcG8Awi6UpFgH3CTEnCsCwWT uoXDKpJbN0XG28hAgaMI7OKJSpSDJsET11DMQ9GDJqTt8QOp6KWiGfTI4yaw6JBsXyAC7ofe3TKRvNJl ZoH3W2gOHkG0Mjsb90DS8HpDZ6tFMhUT9RhX9tGR4T d6JxIHLmUwIuXLVfDDBmBNUaESYhRbYwEP8OZRXnQoKtgGRqBFLfWEI6EHSsBiW0HZEbNR5UUGBqJLY4 FC9KWS3EKjrkB7NIXOsaxVgjPuOPFVN/XTTZMUCUCFcyHBCsH97QO1HWISaHJjulEGqZYbbeCr0cQXu+ Ck1ZFS3ka0PtYMw8PCHgZQ9bzj2DHAwNGyBbP5A4wK EfL7U7EFsvIe2STSLgZCXfFyxvBZOSSJzcLA9CXH3ozxT9NA9PwNPvISKsPKZbkYRaYEf3G16wiBVcOD afEU2GKQE+Zeferino+Gp7NEHWhIZCgRUIzXxRwDATZOtPeG6VkN2EYe5ZrX8SeWA62zXxbieKvCDovCP9UHZ 0nPUTlWMHJAB8ArKLmnI9befApTVUgERDSUfJyA64o mNBcHWCzNRP5IMZkYg1OADFvP9FqdqMnxTanrqUwVGEkGNNGQR4ZAYvbqbGgcSAmjDgyMG58hBhjLU7N Sh9GLtEwUK1rkg5RbQKzUv4DMXL8Wi7XLUQvREQeMINcDQU8THUjPdVcOSatIZYrISPpRWK8WLFqVYIw FP3PPoAbWXAtLWSyBEejZUYcGMFaua3OCEXlCHF8Cp NdLREgPVEpKLHeIEooQWEdSFQsNTW6KMRcILMdAF9WKeUrKUOdTGOjZiCeLJCbZICdns4EFSEvYIM2Bb I4BWOlEZGpAAAaXFpbTOMyXUMzNTD8UAGwCLLnAE0IJiWlPSQiJNd9IaTcCTOjAWJbzs0DFLLuDCPuEQ LkCOTpGHGmFUZiVJvuABSsUSPoZrZ9KQJkOGUsFL9M JqOjXBHlFON0ZoPqGKJvZCQvik1WSAJvEXUxKXNaSGYpJPMkUEPvBOdkSHNoJMF8QzEeVAEaLEIiCL5A UeAiJUFoOCp7ChOeQHWiKBApnc3PLHJwMCAtJFf7JGQdRNBjBWBlCGsoYVImGXEnXSG0PRUeFWYvUY6S AwXeJGSuRnTvSeCeUPSmEGOzwk7OFRGdYREsCmLpYg WyPKClYPDyDZakAJXfDDBuGAM7FPXkOVDlMS2ULsReFAZhApE5DFUmDXUqYTYbco5EBVIhCGWuCgZ5QU ZgGEGlIIWsHCpfWNTwBUSwKwVjBNGhOVLbQN2JAdEuTBSvHlC7RSElDQQsSQBglg4BKNJzLMZwXYB0OK FkQQEbEJToHPwvNVZlMAK4MxF2HRByDFNoRW1ZIyNh DAMrTbN0IIIbZQXyBPMgrf2QWEFsSFLtRyF0QKGdGGKtVWVnWIygDBLuTMZ5NhRxZBShEJAwPR3EYdXv OLPcAudkQMRfBQPqKCTakc2JQFRuUNKzSnD3FjDcUDPhMHKeITdrYKMrENB4TwQsFJBjGMPnFC1JMuJs GKLrLiq1ZjTnAZHgDSDxrk3XYPCfVSArXEl6AqZnFD FrXKBlGWryEWUeKET8VYJ5ULBvYFCkJF7FLwBtLCQiGrh3GaOrWSIvWUOxmo6RHMPtCDH0CNH5DhVvQY AfHBSoHWbzCNUvNYQwYbQ3BJCzSZVzHB5WEnPvFSNdABZ9KYHvYUYmEICask5SEQEdRUU1YsJ8EeEkAV DoEEHfDLxiFTHdZGNzCmP3WVEtOSKwEB8MEqZvYSGf AXS2FRVjYQXmKNLarn5XbLGowGeaak2KXWlRFw8ZkUcjNLYaBRpaXa2axFU9LBVkWRRFSx0AbcEfOZVv RBTVQSlrYSPgTYE0VIB9WBUqNLg9CWP4UDhhNoAkPcBgCLL7WzDdEaH6NlB9ZSldBYO9SfJ7HPinRHH8 ADIePXJpAXP9IkbkDnIoOgh+XO7yKLt+Lm6Gt5ZeqqV5fsWcCGd6Wzz7BX9IZELHE8GOAg== ID Date Data Source [id number] 03/11/2020 01:08:07 PM EDT [facility] Name Value Range Interpretation Code Description Data Irish rce(s) Supporting Document(s) Leukocytes [#/volume] in Blood by Automated count 11.0 10*3/uL 4-10 [facility] Erythrocytes [#/volume] in Blood by Automated count 4.33 10*6/uL 4.6- 6.1 L [facility] Hemoglobin [Mass/volume] in Blood 14.9 g/dL 13.5-18 [facility] Hematocrit [Volume Fraction] of Blood by Automated count 42.8 % 4 1-53 [facility] Erythrocyte mean corpuscular volume [Entitic volume] by Auto mated count 98.9 fL 80-96 H [facility] Erythrocyte mean corpuscular hemoglobin [Entitic mass] by Automated count 34.5 pg 27-33 H [facility] Erythrocyte mean corpuscular hemoglobin concentration [Mass/volume] by Automated count 34.9 g/dL 32.0-36.0 [facility] distribution width [Ratio] by Automated count 14.4 % 11.5-14.5 [facility] Platelets [#/volume] in Blood by Automated count 299 10*3/uL 150-400 [facility] Differential cell count method - Blood [facility] Neutrophils/100 leukocytes in Blood by Automated count 64 % [facility] Lymphocytes/100 leukocytes in Blood by Automated count 20 % [facility] Monocytes/100 leukocytes in Blood by Automated count 9 % [facility] Eosinophils/100 leukocytes in Blood by Automated count 6 % [facility] Basophils/100 leukocytes in Blood by Automated count 1 % [facility] Neutrophils [#/volume] in Blood by Automated count 7.09 10*3/uL 1.8-7 .0 [facility] Lymphocytes [#/volume] in Blood by Automated count 2.14 10*3/uL 1.2-4 .0 [facility] Monocytes [#/volume] in Blood by Automated count 1.03 10*3/uL 0-0.8 [facility] Eosinophils [#/volume] in Blood by Automated count 0.62 10*3/uL 0-0.5 [facility] Basophils [#/volume] in Blood by Automated count 0.10 10*3/uL 0-0.2 [facility] Nucleated erythrocytes/100 leukocytes [Ratio] in Blood by Automated count 0 /100{WBCs} 0-0 [facility] ID Date Data Source [id number] 03/11/2020 01:48:02 PM [facility] Name Value Range Interpretation Code Description Data Irish rce(s) Supporting Document(s) Amylase [Enzymatic activity/volume] in Serum or Plasma 123 U/L 28- 103 [facility] ID Date Data Source [id number] 03/11/2020 01:48:02 PM [facility] Name Value Range Interpretation Code Description Data Irish rce(s) Supporting Document(s) Lipase [Enzymatic activity/volume] in Serum or Plasma 90 U/L 13-6 0 [facility] ID Date Data Source [id number] 03/11/2020 01:48:02 PM EDT [facility] Name Value Range Interpretation Code Description Data Irish rce(s) Supporting Document(s) Albumin [Mass/volume] in Serum or Plasma by Bromocresol green (BCG) dye binding method 4.1 g/dL 3.5-5.2 [facility] Bilirubin.total [Mass/volume] in Serum or Plasma 0.2 mg/dL <1.2 [facility] Calcium [Mass/volume] in Serum or Plasma 9.1 mg/dL 8.6-10.0 [facility] Chloride [Moles/volume] in Serum or Plasma 104 mmol/L 98-107 [facility] Creatinine [Mass/volume] in Serum or Plasma 1.36 mg/dL 0.70-1.20 [facility] Glucose [Mass/volume] in Serum or Plasma 75 mg/dL 70-140 [facility] Alkaline phosphatase [Enzymatic activity/volume] in Serum or Plasma 93 U/L 40-129 [facility] Potassium [Moles/volume] in Serum or Plasma 4.5 mmol/L 3.4-5.1 [facility] Protein [Mass/volume] in Serum or Plasma 6.6 g/dL 6.4-8.3 [facility] Sodium [Moles/volume] in Serum or Plasma 138 mmol/L 136-145 [facility] Aspartate aminotransferase [Enzymatic activity/volume] in Serum or Plasma 18 U/L <40 [facility] Urea nitrogen [Mass/volume] in Serum or Plasma 20 mg/dL 6-20 [facility] Osmolality of Serum or Plasma by calculation 286 mosm/kg 275-300 [facility] Creatinine/Urea nitrogen [Mass Ratio] in Serum or Plasma 14 [facility] Bicarbonate [Moles/volume] in Serum 25 mmol/L 22-29 [facility] Alanine aminotransferase [Enzymatic activity/volume] in Seru m or Plasma 22 U/L <41 [facility] Anion gap 3 in Serum or Plasma 8 mmol/L 8-15 [facility] Glomerular filtration rate/1.73 sq M pre dicted among non-blacks [Volume Rate/Area] in Serum or Plasma by Creatinine-based formula (MDRD) 58 mL/min/1.73m2 >60 L [facility] Glomerular filtration rate/1.73 sq M pre dicted among blacks [Volume Rate/Area] in Serum or Plasma by Creatinine-based formula (MDRD) 67 mL/min/1.73m2 >60 [facility] ID Date Data Source [id number] 03/11/2020 01:48:02 PM EDT [facility] Name Value Range Interpretation Code Description Data Irish rce(s) Supporting Document(s) Thyroxine (T4) free [Mass/volume] in Serum or Plasma 1.14 ng/dL 0.93- 1.70 [facility] ID Date Data Source [id number] 03/11/2020 01:48:02 PM EDT [facility] Name Value Range Interpretation Code Description Data Irish rce(s) Supporting Document(s) Thyrotropin [Units/volume] in Serum or Plasma 2.880 u[IU]/mL 0.270-4. 200 [facility] ID Date Data Source [id number] 03/11/2020 08:36:00 AM EDT [facility] ([facility]) Name Value Range Interpretation Code Description Data Irish rce(s) Supporting Document(s) Free T4 1.14 [facility] ([facility]) Thyroid Stimulating Hormone 2.880 ME [facility] ([facility]) ID Date Data Source [id number] 03/11/2020 08:36:00 AM EDT [facility] ([facility]) Name Value Range Interpretation Code Description Data Irish rce(s) Supporting Document(s) Albumin [Mass/volume] in Serum or Plasma 4.1 [facility] ([facility]) Alanine aminotransferase [Enzymatic activity/volume] in Serum or Pl asma 22 [facility] ([facility]) Calcium [Mass/volume] in Serum or Plasma 9.1 [facility] ([facility]) Carbon dioxide, total [Moles/volume] in Serum or Plasma 25 [facility] ([facility]) Chloride [Moles/volume] in Serum or Plasma 104 [facility] ([facility]) Alkaline phosphatase [Enzymatic activity/volume] in Serum or Plasma 9 3 [facility] ([facility]) Protein [Mass/volume] in Serum or Plasma 6.6 [facility] ([facility]) Aspartate aminotransferase [Enzymatic activity/volume] in Serum or Plasma 18 [facility] ([facility]) Potassium [Moles/volume] in Serum or Plasma 4.5 [facility] ([facility]) Sodium 138 [facility] Creatinine For GFR 1.36 [facility] ([facility]) Urea nitrogen [Mass/volume] in Serum or Plasma 14 [facility] ([facility]) Glucose 75 70-140 [facility] Procedure Social History Code Duration Value Status Description Data Source(s ) Alcohol intake 04/21/2021 12:00:00 AM EST Current drinker of al cohol (finding) completed Current drinker of alcohol (finding) [facility] Alcohol intake 01/20/2021 12:00:00 AM EDT Current drinker of al cohol (finding) completed Current drinker of alcohol (finding) [facility] Alcohol intake 01/09/2021 12:00:00 AM EDT Current drinker of al cohol (finding) completed Current drinker of alcohol (finding) [facility] Alcohol intake 12/23/2020 12:00:00 AM EDT Current drinker of al cohol (finding) completed Current drinker of alcohol (finding) [facility] Alcohol intake 2020 12:00:00 AM EDT Current drinker of al cohol (finding) completed Current drinker of alcohol (finding) [facility] Alcohol intake 11/23/2020 12:00:00 AM EDT Current drinker of al cohol (finding) completed Current drinker of alcohol (finding) [facility] Alcohol intake 11/09/2020 12:00:00 AM EDT Current drinker of al cohol (finding) completed Current drinker of alcohol (finding) [facility] Alcohol intake 10/26/2020 12:00:00 AM EDT Current drinker of al cohol (finding) completed Current drinker of alcohol (finding) [facility] Alcohol intake 09/22/2020 12:00:00 AM EDT Current drinker of al cohol (finding) completed Current drinker of alcohol (finding) [facility] Alcohol intake 09/21/2020 12:00:00 AM EDT Current drinker of al cohol (finding) completed Current drinker of alcohol (finding) [facility] Alcohol intake 09/06/2020 12:00:00 AM EDT Current drinker of al cohol (finding) completed Current drinker of alcohol (finding) [facility] Tobacco use and exposure 08/26/2020 12:00:00 AM EDT Smokeless to bacco non-user completed Smokeless tobacco non-user [facility] Cigarette pack-years 08/26/2020 12:00:00 AM EDT UNK completed [facility] Cigarettes smoked current (pack per day) - Reported 08/27/19 12:00:00 AM EDT UNK completed [address] [facility] Smoking 08/26/2020 12:00:00 AM EDT Light tobacco smoker comple tricia Light tobacco smoker [facility] Alcohol intake 08/26/2020 12:00:00 AM EDT Current drinker of al cohol (finding) completed Current drinker of alcohol (finding) [facility] Alcohol intake 08/24/2020 12:00:00 AM EDT Current drinker of al cohol (finding) completed Current drinker of alcohol (finding) [facility] Alcohol intake 07/27/2020 12:00:00 AM EST Current drinker of al cohol (finding) completed Current drinker of alcohol (finding) [facility] Smoking 06/21/2020 12:00:00 AM EST Current Smoker completed Curre nt Smoker eCW1 ([facility]) Alcohol intake 06/01/2020 12:00:00 AM EST Current drinker of al cohol (finding) completed Current drinker of alcohol (finding) [facility] Alcohol intake 05/13/2020 12:00:00 AM EST Current drinker of al cohol (finding) completed Current drinker of alcohol (finding) [facility] Alcohol intake 04/22/2020 12:00:00 AM EST Current drinker of al cohol (finding) completed Current drinker of alcohol (finding) [facility] Alcohol intake 04/01/2020 12:00:00 AM EDT Current drinker of al cohol (finding) completed Current drinker of alcohol (finding) [facility] Alcohol intake 03/11/2020 12:00:00 AM EDT Current drinker of al cohol (finding) completed Current drinker of alcohol (finding) [facility] Vital Signs ID Date Data Source UNK Name Value Range Interpretation Code Description Data Source(s) Systolic blood pressure 122 mm[Hg] 122 mm[Hg] M EDENT ([facility]) Diastolic blood pressure 78 mm[Hg] 78 mm[Hg] [facility] ([facility]) Heart rate 96 /min 96 /min [facility] ([facility]) Body height 68 [in_i] 68 [in_i] [facility] ([facility]) 5'8" Body weight 168.00 [lb_av] 168.00 [lb_av] MEDEN T ([facility]) Oxygen saturation in Arterial blood by Pulse oximetry 98 % 98 % [facility] ([facility]) Body mass index (BMI) [Ratio] 25.5 kg/m2 25.5 k g/m2 [facility] ([facility]) Body weight 164.6 [lb_av] 164.6 [lb_av] eCW1 ([facility]) Body height 67 [in_i] 67 [in_i] eCW1 ([facility]) Body mass index (BMI) [Ratio] 25.78 kg/m2 25.78 kg/m2 W1 ([facility]) Heart rate 71 /min 71 /min eCW1 ([facility]) Respiratory rate 18 /min 18 /min eCW1 ([facility]placed by [facility]) Body temperature 97.4 [degF] 97.4 [degF] eCW1 ( [facility]) Systolic blood pressure 118 mm[Hg] 118 mm[Hg] e CW1 ([facility]) Diastolic blood pressure 79 mm[Hg] 79 mm[Hg] eCW1 ([facility]) ID Date Data Source [id number] 04/07/2021 10:10:44 AM EDT [facility] Name Value Range Interpretation Code Description Data Source(s) WEIGHT RECORDED 170.2 lb 170.2 lb [facility] ID Date Data Source [id number] 03/10/2021 12:29:48 PM EDT [facility] Name Value Range Interpretation Code Description Data Source(s) WEIGHT RECORDED 167 lb 167 lb [facility] ID Date Data Source [id number] 12/11/2020 10:58:19 PM EDT [facility] Name Value Range Interpretation Code Description Data Source(s) WEIGHT RECORDED 170.2 lb 170.2 lb [facility] ID Date Data Source [id number] 10/26/2020 03:37:16 PM EDT [facility] Name Value Range Interpretation Code Description Data Source(s) WEIGHT RECORDED 168.4 lb 168.4 lb [facility] ID Date Data Source [id number] 09/22/2020 12:28:33 PM EDT [facility] Name Value Range Interpretation Code Description Data Source(s) WEIGHT RECORDED 166.4 lb 166.4 lb [facility] ID Date Data Source [id number] 09/08/2020 08:37:31 AM EDT [facility] Name Value Range Interpretation Code Description Data Source(s) WEIGHT RECORDED 166 lb 166 lb [facility] ID Date Data Source [id number] 08/26/2020 12:24:30 PM EDT [facility] Value Range Interpretation Code Description Data Source(s) WEIGHT RECORDED 170 lb 170 lb [facility] Body height Measured 68 in 68 in [facility] ID Date Data Source [id number] 07/27/2020 03:59:13 PM [facility] Name Value Range Interpretation Code Description Data Source(s) WEIGHT RECORDED 184 lb 184 lb [facility] ID Date Data Source [id number] 06/29/2020 05:41:18 PM [facility] Name Value Range Interpretation Code Description Data Source(s) WEIGHT RECORDED 184 lb 184 lb [facility] ID Date Data Source [id number] 06/07/2020 02:13:13 PM [facility] Name Value Range Interpretation Code Description Data Source(s) WEIGHT RECORDED 180.8 lb 180.8 lb [facility] ID Date Data Source [id number] 05/17/2020 09:07:03 AM [facility] Name Value Range Interpretation Code Description Data Source(s) WEIGHT RECORDED 175.2 lb 175.2 lb [facility] ID Date Data Source [id number] 05/06/2020 04:38:33 PM [facility] Name Value Range Interpretation Code Description Data Source(s) WEIGHT RECORDED 175 lb 175 lb [facility] ID Date Data Source [id number] 04/03/2020 01:51:18 PM [facility] Name Value Range Interpretation Code Description Data Source(s) WEIGHT RECORDED 178.6 lb 178.6 lb [facility] Patient Treatment Plan of Care Planned Activity Planned Date Details Description Data Source (s) Levofloxacin 500 MG Oral Tablet 04/21/2021 12:00:00 AM [facility] Nitroglycerin 0.4 MG Sublingual Tablet 12/23/2020 12:00:00 AM [facility] Ondansetron 8 MG Oral Tablet 08/24/2020 12:00:00 AM [facility] Prochlorperazine 10 MG Oral Tablet 08/24/2020 12:00:00 AM [facility] Baclofen 10 MG Oral Tablet 08/24/2020 12:00:00 AM [facility] Baclofen 10 MG Oral Tablet 08/24/2020 12:00:00 AM [facility] sildenafil 100 MG Oral Tablet [Viagra] 06/[facility] tramadol hydrochloride 50 MG Oral Tablet 04/09/2019 12:00:00 AM [facility] gabapentin 300 MG Oral Capsule 04/08/2019 12:00:00 AM [facility] Nitroglycerin 0.4 MG Sublingual Tablet [facility]
[2021-04-23] MEDS ORDERED: HOME MED LIST COMPLETE! XX SCH (03:30)
[2021-04-23] MEDS ORDERED: methylPREDNISolone 125MG 2ML VIAL IV STA (03:46)
--- NOTE | 2021-04-23 03:55 | REPVR ---
PROCEDURE INFORMATION: Exam: CTA Chest With Contrast Exam date and time: 04/23/2021 3:20 AM Age: 55 years old Clinical indication: Dyspnea w hypoxemia. Metastatic bladder cancer. TECHNIQUE: Imaging protocol: Computed tomographic angiography of the chest with contrast. 3D rendering (Not supervised by radiologist): MIP and/or 3D reconstructed images were created by the technologist. Radiation optimization: All CT scans at this facility use at least one of these dose optimization techniques: automated exposure control; mA and/or kV adjustment per patient size (includes targeted exams where dose is matched to clinical indication); or iterative reconstruction. Contrast material: ISOVUE 370; Contrast volume: 75 ml; Contrast route: INTRAVENOUS (IV); COMPARISON: CT Chest with contrast 02/15/2021 1:47 PM FINDINGS: Limitations: Limited by motion artifact. Tubes, catheters and devices: Port-A-Cath on the right with the tip in the distal SVC. Pulmonary arteries: No saddle pulmonary emboli. Pulmonary emboli in the anterolateral basal segment of the left lower lobe. Aorta: Moderate atherosclerotic disease of the aorta. No aortic aneurysm. No aortic dissection. Lungs: Subsegmental atelectasis in the lingula. Mild paraseptal emphysema lung disease. Ground-glass opacities in the superior segment of the right lower lobe, lingula, and left lower lobe. More dense consolidation in posterior basal left lower lobe. Pleural spaces: Trace right pleural effusion. Mild left pleural effusion. No pneumothorax. Heart: Unremarkable. No cardiomegaly. No pericardial effusion. Heart RV/LV ratio: 0.7. Coronary arteries: Severe coronary artery calcification. Lymph nodes: Bulky mediastinal and hilar lymphadenopathy. Liver: Diffuse hypodense nodules in the liver. Bones/joints: Scattered sclerotic lesions in the osseous structures. Mild degenerative spine. No acute fracture. Soft tissues: Unremarkable. IMPRESSION: 1. Limited by motion. 2. Pulmonary emboli in the anterobasal left lower lobe segmental pulmonary artery. 3. No evidence of right ventricular cardiac strain. 4. Ground-glass opacities and consolidations bilaterally. New from prior. Consistent with pneumonia versus pulmonary infarcts. 5. Mild left pleural effusion. New from prior. 6. Bulky mediastinal and hilar lymphadenopathy. Increased from prior. 7. Multiple hypodense nodules in the liver. Consistent with metastatic disease. New from prior. 8. There is progression of metastatic disease from prior study. COMMENTS: CRITICAL FINDING. This report contains findings that may be critical to patient care. The findings were verbally communicated via telephone conference with Dr. Palomares at 3:51 AM EST on 04/23/2021. The findings were acknowledged and understood. Electronically signed by: Tariq Riojas On 04/23/2021 03:54:22 AM
[2021-04-23] MEDS: VANCOMYCIN HCL 1,000 MG, VIAL MATE ADAPTER 1 EACH in NS 250 ML IV SCH ×3 (04:02→20:57)
[2021-04-23] MEDS ORDERED: LR 1,000 ML IV ONE (04:05)
[2021-04-23] MEDS: ALBUTEROL SULFATE 2.5 MG/0.5 ML INH NEB SOLN NEB PRN (04:27)
[2021-04-23] MEDS: BACLOFEN 5MG PER 1/2 TABLET PO SCH ×2 (04:31→20:57)
[2021-04-23 04:55] LABS: ABG pH (ARTERIAL) 7.399 UNITS (7.350-7.450)
[2021-04-23] MEDS ORDERED: NITROGLYCERIN 0.4 MG SUBL TABLET SL PRN (04:55)
[2021-04-23] MEDS ORDERED: PROCHLORPERAZINE 5 MG TAB (S0183) PO PRN (04:55)
[2021-04-23 04:58] LABS: ABG BASE EXCESS -4.5 (-2.0-2.0); ABG HCO3 19.5 MEQ/L (22.0-26.0); ABG PARTIAL PRESSURE CO2 32.3 mmHg (35.0-45.0); ABG PARTIAL PRESSURE O2 162.4 mmHg (75.0-100.0); ABG STANDARD HCO3 20.8 MEQ/L (22.0-26.0); ABG TOTAL CO2 20.5 MEQ/L (22.0-29.0)
[2021-04-23] MEDS ORDERED: VANCOMYCIN HCL 500 MG in D5W MINI-BAG PLUS 100 ML IV ONE (05:00)
[2021-04-23 05:02] LABS: HEMATOCRIT 32.8 % (42.0-52.0); HEMOGLOBIN 10.4 g/dl (13.5-17.5); MEAN CORPUSCULAR HEMOGLOBIN 31.5 pg (27.0-33.0); MEAN CORPUSCULAR HGB CONC 31.7 g/dl (32.0-36.5); MEAN CORPUSCULAR VOLUME 99.4 fl (80.0-96.0); PLATELET COUNT, AUTOMATED 134 10^3/uL (150-450); WHITE BLOOD COUNT 19.3 10^3/uL (4.0-10.0)
[2021-04-23 05:35] LABS: ALBUMIN 2.5 GM/DL (3.2-5.2); ALT/SGPT 36 U/L (12-78); BILIRUBIN,TOTAL 0.4 MG/DL (0.2-1.0); BLOOD UREA NITROGEN 20 MG/DL (7-18); CALCIUM LEVEL 7.6 MG/DL (8.5-10.1); CARBON DIOXIDE LEVEL 23 MEQ/L (21-32); CHLORIDE LEVEL 107 MEQ/L (98-107); CREATININE FOR GFR 1.32 MG/DL (0.70-1.30); GLOMERULAR FILTRATION RATE > 60.0 (>56); GLUCOSE, FASTING 123 MG/DL (70-100); POTASSIUM SERUM 4.4 MEQ/L (3.5-5.1); SODIUM LEVEL 138 MEQ/L (136-145); TOTAL PROTEIN 6.1 GM/DL (6.4-8.2)
[2021-04-23] MEDS: ENOXAPARIN 80MG/0.8ML SYRINGE (J1650 PER 10MG) SC SCH ×2 (06:28→18:26)
[2021-04-23] MEDS: PIPERACILLIN/TAZOBACTAM SOD 4.5 GM in D5W MINI-BAG PLUS 50 ML IV SCH ×3 (06:35→18:27)
--- NOTE | 2021-04-23 06:39 | REPVR ---
PROCEDURE INFORMATION: Exam: US Abdomen Complete Exam date and time: 04/23/2021 6:20 AM Age: 55 years old Clinical indication: Acute abdominal pain. Hepatic and renal impairment. Multiple hepatic lesions on CT. History of metastatic bladder cancer. Pulmonary emboli. Pulmonary infiltrate. TECHNIQUE: Imaging protocol: Real-time ultrasound of the abdomen with image documentation. COMPARISON: 1. CT ABD PELVIS WITH CONTRAST 02/15/2021 1:[address] ABD PELVIS WITH CONTRAST 02/15/2021 1:47:25 PM FINDINGS: Pleural spaces: Small left pleural effusion. Mild left pleural effusion. Liver: Numerous hypoechoic lesions in liver measuring up to 9 mm in diameter. Gallbladder: Gallbladder is unremarkable. No gallstones. No gallbladder wall thickening. Common bile duct: CBD measures 3.2 mm in diameter. Pancreas: Visualized pancreas is unremarkable. Right kidney: Right kidney measures 10.7 cm in length. Mild right hydronephrosis. No masses evident. Left kidney: Left kidney measures 12 cm in length. Mild left hydronephrosis. No masses evident. Spleen: Spleen measures 9.8 cm in length. Unremarkable spleen. Aorta: No abdominal aortic aneurysm. Inferior vena cava: Normal. Intraperitoneal space: No free air. No free fluid. IMPRESSION: 1. Numerous hypoechoic lesions in liver. Findings correlate with CT. Suspicious for metastatic disease. 2. Mild hydronephrosis bilaterally. Unchanged from prior CT. Probably related to urinary diversion. Electronically signed by: Tariq Riojas On 04/23/2021 06:39:27 AM
--- NOTE | 2021-04-23 07:13 | HPEPDOC ---
[facility] Medical History & Physical Date of Admission Apr 23, 2021 Date of Service: Apr 23, 2021 Primary Care Physician: Jr Gaines Collins Attending Physician: MIRANDA OCHOA MD History and Physical TIME OF SERVICE: 345am CHIEF COMPLAINT: dyspnea HISTORY OF PRESENT ILLNESS: Since starting a new immunologic to manage metastatic bladder cancer , a 55 yr old M, has been feeling short of breath; he felt like this may be due to the immunologic but has been told that it is a rare side effect and less likely to be the cause of his symptoms. Over the last few days several family members have been sick with rhinovirus. He has been having fevers, chills, sore throat, worsening of his dyspnea nd a productive cough. He thought that he might also have a viral illness but a few days ago when he traveled to [place] for an infusion of his immunologic therapy his respiratory panel was negative. His white count was low therefore he was given colony stimulating factor medications but he didnt receive an infusion of the immunologic. Today he came to the hospital because he had more difficulties breathing along with sore throat from coughing. He last lost about 15 lbs in the last 2 weeks. REVIEW OF SYSTEMS: 10-point review of systems negative except as listed in HPI PAST MEDICAL/ SURGICAL HISTORY: Bladder cancer w mets to the liver s/p radical cystectomy w ilieal conduit placement (s/p Keytruda), CAD/KS (s/p placement of 2 stents), ED, Deviated septum, Diverticulitis, FAMILY HISTORY: CAD, Seizure disorder, essential HTN, SOCIAL HISTORY: he quit smoking (has a 30+ pack year history) & lives with his ALLERGIES: Please see below. HOME MEDICATIONS: Please see below. PHYSICAL EXAMINATION: Vital Signs Date Time Temp Pulse Resp B/P (MAP) Pulse Ox O2 Delivery O2 Flow Rate FiO2 04/22/21 21:46 98.5 122 22 138/83 (101) 97 Room Air 04/22/21 23:34 2.0 GENERAL APPEARANCE: slim build and developed/ NAD HEENT: EOMI / MM pink but dry / NC in place CARDIOVASCULAR: tachycardic /NMRG / no pitting edema LUNGS: he is tachypneic, has trouble talking full sentences w/o stopping to take a break and has inspiratory rhonchi at the left mid and lower lobes / he has 2 oz cup full of yellows sputum with bloody streaks ABDOMEN: contour flat MUSCULOSKELETAL: NCAT / MARQUISE x 4 extremities INTEGUMENT: he is flushed or diaphoretic NEUROLOGICAL: CN 2-12 grossly intact / speech not dysarthric PSYCHIATRIC: A&O x 3 / able to understand and follow all commands LABORATORY DATA: 04/23/21 04:46 IMAGING: Chest xray IMPRESSION: Bilateral lower lobe infiltrates. Pulmonary edema versus pneumonia. CT chest IMPRESSION: 1. Limited by motion. 2. Pulmonary emboli in the anterobasal left lower lobe segmental pulmonary artery. 3. No evidence of right ventricular cardiac strain. 4. Ground-glass opacities and consolidations bilaterally. New from prior. Consistent with pneumonia versus pulmonary infarcts . 5. Mild left pleural effusion. New from prior. 6. Bulky mediastinal and hilar lymphadenopathy. Increased from prior. 7. Multiple hypodense nodules in the liver. Consistent with metastatic disease. New from prior. 8. There is progression of metastatic disease from prior study. Liver US IMPRESSION: 1. Numerous hypoechoic lesions in liver. Findings correlate with CT. Suspicious for metastatic disease. 2. Mild hydronephrosis bilaterally. nchanged from prior CT. Probably related to urinary diversion. MICROBIOLOGY: Respiratory panel negative ASSESSMENT: is a 55 yr old w Bladder cancer w mets to the liver s/p radical cystectomy w ilieal conduit & chronic CAD/KS (s/p placement of 2 stents) who is admitted for SIRS vs Sepsis, PNA vs pulmonary infarcts, acute PE and acute COPD. PLAN: 1 SIRS vs Sepsis -He has tachycardia, tachypnea and leukocytosis (partially due to colony sti mulating factor) & lactic acidosis -Possibly due to PNA Plan: admit to medical floor / telemetry / f/u repeat lactic / IVF /f/u mosley cx results / Acetaminophen PRN for fever / target MAP at of least 65 to 70 / f/u Is and Os with target UOP of at least 0.5 ml/kg/H / f/u FSBS w target serum glucose 140-180 while acutely ill 2 Hospital Acquired PNA -these could also be Pulmonary Infarcts, but because he has purulent thick sputum with a cough and muscle aches & is immunosuppressed we will treat him for HAP Plan: continuous pulse ox & supplemental O2/ f/u blood & sputum cultures strep pneumo, legionella, Mycoplasma, MRSA / Pip-Tazo + Vanc / consider Pulm consult to determine if he has PNA vs Pulmonary infarcts and or metastatic disease to the lungs 3 Acute PE - i/s/o reduced mobility and traveling to [facility] -there is no heart strain on CTA Plan: He is not a candidate for a DOAC because he has a malignancy which one of the contraindication to using a DOACs for AC / treatment dose Lovenox 4 Suspected Acute COPD -2/2 HAP Plan: supplemental O2 / continuous pulse oximetry / f/u ABG, d-dimer, influenza, sputum cx / Solumedrol / DuoNeb Q6H, Albuterol Q1HP, Prednisone / abx 5 Macrocytic anemia -likely 2/2 cancer Plan: trend Hg / f/u iron, B12 & folate 6 Pre-renal Azotemia -He doesnt meet criteria to diagnose CALEB Plan: IVF 7 Bladder cancer w mets to the liver Plan: obtain records from [place] [id number] Chronic CAD Plan: Nitro, ASA, statin DVT px n/a on treatment dose lovenox Dispo: home after at least 2 midnights stay / at high risk of re-admission PFS consult placed Vital Signs - Home Medications Scheduled Aspirin (Aspirin) 81 Mg Tab.chew, 81 MG PO DAILY Atorvastatin Calcium (Atorvastatin Calcium) 40 Mg Tablet, 40 MG PO DAILY Scheduled PRN Nitroglycerin (Nitrostat) 0.4 Mg Tab.subl, 0.4 MG SL NITRO PRN for CHEST PAIN Ondansetron HCl (Ondansetron HCl) 8 Mg Tablet, 8 MG PO Q8HP PRN for NAUSEA Prochlorperazine Maleate (Prochlorperazine Maleate) 10 Mg Tablet, 10 MG PO Q6HP PRN for NAUSEA Allergies Coded Allergies: No Known Allergies (Unverified , 04/01/20) A-FIB/CHADSVASC A-FIB History Current/History of A-Fib/PAF?: No Current PO Anticoag Therapy: No MIRANDA OCHOA MD Apr 23, 2021 07:13
--- NOTE | 2021-04-23 08:17 | ECGEPIP ---
[facility] - ED Test Date: 2021-04-23 Pat Name: RYAN CHUNG Department: Room: - Gender: Male [employer] Technician: RF : 1965 Requested By: PERCY Long Order Number: [id number] Reading MD: Nargis Allan Measurements Intervals [place] Rate: 102 P: 51 MO: 128 QRS: 20 QRSD: 82 T: 49 QT: 338 QTc: 440 Interpretive Statements Sinus tachycardia Possible Left atrial enlargement Septal infarct , age undetermined NSTTW abnormalities increased rate/ectopy 11/21/18 Electronically Signed on 04-23-2021 8:17:20 EST by Nargis Allan
[2021-04-23] MEDS: IPRATROPIUM 0.5MG/ALBUTEROL 2.5MG INH SOL UD 3ML (DUONEB) NEB SCH ×3 (08:51→19:18)
[2021-04-23] MEDS ORDERED: ENOXAPARIN 40MG/0.4ML SYRINGE (J1650 PER 10MG) SC SCH (09:00)
[2021-04-23 09:26] LABS: FERRITIN 1452 NG/ML (26-388); IRON (FE) 13 UG/DL (65-175); PERCENT SATURATION 6.6 % (19.7-50.0); TOTAL IRON BINDING CAPACITY 197 UG/DL (250-450)
[2021-04-23] MEDS: ASPIRIN 81 MG CHEW TABLET PO SCH (09:26)
[2021-04-23] MEDS: ATORVASTATIN 20 MG TAB PO SCH (09:27)
[2021-04-23] MEDS: predniSONE 20 MG TAB PO SCH (09:27)
[2021-04-23] MEDS: NS 1,000 ML IV SCH ×3 (10:44→21:30)
--- NOTE | 2021-04-23 12:03 | IPNPDOC ---
Text Note Date of Service The patient was seen on 04/23/21. NOTE Subjective: Patient is a 55-year-old male with a PMHx of Bladder CA (Dx 11/2018; s/p Radical cystectomy w/ ileal conduit, Radiation, Chemotherapy and Imm unotherapy), CAD (Hx of MA) s/p stent x2, who presented to the emergency room with shortness of breath after multiple family members were noted to be positive for Rhinovirus. In the emergency room, patient had CT scan of his chest which revealed evidence of pulmonary emboli and imaging suggestive of pneumonia versus pulmonary infarct. Patient was admitted to the hospitalist service for further evaluation and treatment. Patient reports that he has just come back from [place] after infusion for his immunotherapy and has also received colony stimulating factor. Patient was seen and examined at the bedside. Patient still reports some shortness of breath. Reports a productive cough with sputum production. Denies any nausea, vomiting, abdominal pain, diarrhea or constipation. Denies any urina ry discomfort. Patient does report some left mid back pain. Objective: Vitals (See below) General: Lying in bed, appears short of breath, AAOx3 HEENT: NC, AT CVS: +S1S2 Lungs: Fair air entry b/l, some rhonchi appreciated at left lung base. No wheezing or crackles Abdomen: Soft, ND, NT,+ Ileal conduit Extremities: - Edema Imaging: CXR 04/23: Bilateral lower lobe infiltrates. Pulmonary edema versus pneumonia. CTA chest 04/23: 1. Limited by motion. 2. Pulmonary emboli in the anterobasal left lower lobe segmental pulmonary artery. 3. No evidence of right ventricular cardiac strain. 4. Ground-glass opacities and consolidations bilaterally. New from prior. Consistent with pneumonia versus pulmonary infarcts. 5. Mild left pleural effusion. New from prior. 6. Bulky mediastinal and hilar lymphadenopathy. Increased from prior. 7. Multiple hypodense nodules in the liver. Consistent with metastatic disease. New from prior. 8. There is progression of metastatic disease from prior study. US Abdomen 04/23: 1. Numerous hypoechoic lesions in liver. Findings correlate with CT. Suspicious for metastatic disease. 2. Mild hydronephrosis bilaterally. Unchanged from prior CT. Probably related to urinary diversion. Assessment and plan: Shortness of breath / Hypoxia - likely 2/2 pulmonary emboli, strong suspicion for pulmonary infarct, possibly 2/2 pneumonia (HCAP) - Patient presented to ER with complaints of shortness of breath; he is also reported a productive cough - Patient appears to be hemodynamically stable; His tachycardia has resolved - c/w Full anticoagulation with Lovenox therapeutic - Will add Moprhine for Pain control Pulmonary infarcts / Possible Healthcare associate Pneumonia - Patient has been experiencing a productive cough and is immunocompromised - No fevers noted - Leukocytosis - PCT of 0.79 - COVID19 / RSV / Influenza 04/23: Negative - Strep pneumo, Legionella, Mycoplasma, MRSA screen pending - Blood cultures 04/23: Pending - Sputum cultures 04/23: Pending - c/w Vancomycin and Zosyn (Day #1) Suspected Acute COPD - This morning patient does not have any wheezing on exam - Respiratory panel 04/[address] [facility]; Negative - s/p Solumedrol - c/w Prednisone - c/w Inhaled therapy as ordered Macrocytic anemia - Will follow Hg trend Lactic acidosis - Will give 1 L bolus - Will start Normal saline infusion at 150 cc/hr Elevated Cr - Baseline Cr of ~1.0 on 03/2021 (Verified on [facility]) - Cr elevated on admission - c/w IV fluid hydration Metastatic Bladder cancer (Stage IV) with imaging consistent with metastatic spread to liver - Dx 11/2018 - TURBT 11/21/2018 - pT2 high-grade urothelial cell carcinoma, papillary type - Neoadjuvant ddMVAC (methotrexate, vinblastine, doxorubicin, and cisplatin) 12/2018 to 02/2019 - Open radical cystoprostatectomy, bilateral pelvic lymph node dissection, ileal conduit 04/2019 - ypT0N2 urothelial carcinoma - 05/2019; started on immunotherapy and completed his adjuvant therapy with Keytruda of 18th cycle on 05/2020; tolerated well - Metastatic spread noted and gemcitabine and carboplatin were started, completed on 02/2021; Also received radiation to T10 and L5 vertebral bodies - Started on Durvalumab maintenance therapy - Follows with Dr. Cynthia Moody, Oncology and [facility] Chronic CAD - Denies any CP - c/w Nitroglycerin PRN - c/w ASA 81, Atorvastatin DVT prophylaxis - c/w full anticoagulation with Eliquis Code status: - Full code Disposition: - Pending clinical improvement VS,Sonae, I+O VS, Fishbone, I+O Laboratory Tests 04/22/21 22:48 04/23/21 04:46 04/23/21 04:47 Vital Signs Date Time Temp Pulse Resp B/P (MAP) Pulse Ox O2 Delivery O2 Flow Rate FiO2 04/23/21 10:54 93 141/84 (103) 95 04/23/21 08:51 18 04/23/21 07:54 97.7 Nasal Cannula 3.0 I&O- Last 24 Hours up to 6 AM 04/23/21 05:59 Intake Total 1575 ml Output Total 500 ml Balance 1075 ml ALONSO YANG MD Apr 23, 2021 12:03
[2021-04-23] MEDS: ONDANSETRON 4 MG TAB PO PRN (21:01)
[2021-04-24] VITALS (13 sets, daily range): BP systolic 109–142; BP diastolic 57–78; O2SAT 88–97
[2021-04-24] MEDS: PIPERACILLIN/TAZOBACTAM SOD 4.5 GM in D5W MINI-BAG PLUS 50 ML IV SCH ×4 (00:26→17:23)
[2021-04-24] MEDS: IPRATROPIUM 0.5MG/ALBUTEROL 2.5MG INH SOL UD 3ML (DUONEB) NEB SCH ×4 (01:32→19:50)
[2021-04-24] MEDS ORDERED: BENZONATATE 100MG CAPSULE PO PRN (01:35)
--- NOTE | 2021-04-24 01:35 | IPNPDOC ---
Text Note Date of Service The patient was seen on 04/24/21. NOTE Per d/w RN the pt is still coughing a lot. We will order waldemar & MIRANDA Santos MD Apr 24, 2021 01:34
[2021-04-24] MEDS: VANCOMYCIN HCL 1,000 MG, VIAL MATE ADAPTER 1 EACH in NS 250 ML IV SCH ×2 (04:32→12:14)
[2021-04-24 05:22] LABS: HEMATOCRIT 26.8 % (42.0-52.0); HEMOGLOBIN 8.5 g/dl (13.5-17.5); MEAN CORPUSCULAR HEMOGLOBIN 31.4 pg (27.0-33.0); MEAN CORPUSCULAR HGB CONC 31.7 g/dl (32.0-36.5); MEAN CORPUSCULAR VOLUME 98.9 fl (80.0-96.0); PLATELET COUNT, AUTOMATED 157 10^3/uL (150-450); RED BLOOD COUNT 2.71 10^6/uL (4.30-6.10); WHITE BLOOD COUNT 24.3 10^3/uL (4.0-10.0)
[2021-04-24 05:44] LABS: CALCIUM LEVEL 7.1 MG/DL (8.5-10.1); CREATININE FOR GFR 1.44 MG/DL (0.70-1.30); GLOMERULAR FILTRATION RATE 54.4 (>56); POTASSIUM SERUM 4.3 MEQ/L (3.5-5.1)
[2021-04-24] MEDS: ENOXAPARIN 80MG/0.8ML SYRINGE (J1650 PER 10MG) SC SCH ×2 (05:45→17:23)
[2021-04-24] MEDS: ASPIRIN 81 MG CHEW TABLET PO SCH (07:57)
[2021-04-24] MEDS: BACLOFEN 5MG PER 1/2 TABLET PO SCH ×2 (07:57→20:15)
[2021-04-24] MEDS: predniSONE 20 MG TAB PO SCH (07:57)
[2021-04-24] MEDS: ATORVASTATIN 20 MG TAB PO SCH (07:57)
--- NOTE | 2021-04-24 08:31 | IPNPDOC ---
Text Note Date of Service The patient was seen on 04/24/21. NOTE Subjective: Tani Barnes is a 55 year old male with a PMHx of bladder malignancy and coronary artery disease who presented to the ED with CC of SOB after multiple members of his family came down with Rhinovirus and was found to be hypoxic 2ndary to PE vs. pneumonia. Patient reports feeling much better today and that his SOB has lessened but is still present to a degree. Patient also remarks on his improving mood and increasing appetite. Patient did note that last night he vomited shortly after attempting to eat his dinner, he denies any blood in the vomit and states it only looked like the food he consumed, during this episode patient said he was experiencing heartburn. Patient denies difficulty swallowing when eating. He also denies abdominal pain/discomfort, nausea, constipation headache and chest pain. Patient noted his last bowel movement was this past saturday but that he has been passing gas and feels as though he will have a bowel movement soon. Objective: General: Patient appears comfortable sitting up in bed, did not appear short of breath or somnolent. HEENT: Moist mucous membranes, cranium is normocephalic and non-traumatic Respiratory: Some decreased breath sounds noted in the left lower lung, no wheezing or crackles were appreciated. Cardiac: Regular rate and rhythm, no murmurs or gallops were heard Abdomen: nontender/nondistended, normoactive bowel sounds appreciated Extremities: No evidence of edema Imaging: CXR 04/23: Bilateral lower lobe infiltrates. Pulmonary edema versus pneumonia. CTA chest 04/23: 1. Limited by motion. 2. Pulmonary emboli in the anterobasal left lower lobe segmental pulmonary artery. 3. No evidence of right ventricular cardiac strain. 4. Ground-glass opacities and consolidations bilaterally. New from prior. Consistent with pneumonia versus pulmonary infarcts. 5. Mild left pleural effusion. New from prior. 6. Bulky mediastinal and hilar lymphadenopathy. Increased from prior. 7. Multiple hypodense nodules in the liver. Consistent with metastatic disease. New from prior. 8. There is progression of metastatic disease from prior study. US Abdomen 04/23: 1. Numerous hypoechoic lesions in liver. Findings correlate with CT. Suspicious for metastatic disease. 2. Mild hydronephrosis bilaterally. Unchanged from prior CT. Probably related to urinary diversion. Assessment and plan: Hypoxia - likely 2/2 pulmonary emboli, strong suspicion for pulmonary infarct, possibly 2/2 pneumonia (HCAP) - Patient presented to ER with complaints of shortness of breath; he is also reported a productive cough - Patient is hemodynamically stable; His tachycardia has resolved - c/w Full anticoagulation with Lovenox therapeutic - c/w Morphine for Pain control Pulmonary infarcts / Possible Healthcare associate Pneumonia - Patient has been experiencing a productive cough and is immunocompromised - No fevers noted - Leukocytosis, will trend CRP - PCT of 0.79 - COVID19 / RSV / Influenza 04/23: Negative - Strep pneumo, Legionella, Mycoplasma, MRSA screen pending - Blood cultures 04/23: No growth after 24 hrs - Sputum cultures 04/23: Pending - c/w Vancomycin and Zosyn (Day #2) Suspected Acute COPD - This morning patient does not have any wheezing on exam - Respiratory panel 04/[address] [facility]; Negative - s/p Solumedrol - c/w Prednisone - c/w Inhaled therapy as ordered Macrocytic anemia - Hg has trended down likely secondary to hemodilution - Will follow Hg trend - 04/24/21 Hg 8.5, decreased from 10.4 04/23 - Hct decreased from 32.8 on 04/23 to 26.8 04/24 Lactic acidosis - possibly 2/2 malignancy, possibly 2/2 pulmonary infarct, possibly 2/2 infection - s/p Bolus fluids - Normal saline infusion at 150 cc/hr, started and running - In light of improvement of his tachycardia and no evidence of hypoperfus ion/hypotension; will continue to provide maintenance fluids instead of IV fluid boluses Elevated Cr - Baseline Cr of ~1.0 on 03/2021 (Verified on [facility]) - Cr elevated on admission, 1.44 - c/w IV fluid hydration Metastatic Bladder cancer (Stage IV) with imaging consistent with metastatic spread to liver - Dx 11/2018 - TURBT 11/21/2018 - pT2 high-grade urothelial cell carcinoma, papillary type - Neoadjuvant ddMVAC (methotrexate, vinblastine, doxorubicin, and cisplatin) 12/2018 to 02/2019 - Open radical cystoprostatectomy, bilateral pelvic lymph node dissection, ileal conduit 04/2019 - ypT0N2 urothelial carcinoma - 05/2019; started on immunotherapy and completed his adjuvant therapy with Keytruda of 18th cycle on 05/2020; tolerated well - Metastatic spread noted and gemcitabine and carboplatin were started, completed on 02/2021; Also received radiation to T10 and L5 vertebral bodies - Started on Durvalumab maintenance therapy - Follows with Dr. Cynthia Moody, Oncology and [facility] Chronic CAD - Denies any CP - c/w Nitroglycerin PRN - c/w ASA 81, Atorvastatin DVT prophylaxis - c/w full anticoagulation with Eliquis VS,Fishbone, I+O VS, Fishbone, I+O Laboratory Tests 04/24/21 04:26 Vital Signs Date Time Temp Pulse Resp B/P (MAP) Pulse Ox O2 Delivery O2 Flow Rate FiO2 04/24/21 07:28 20 04/24/21 04:00 4.0 04/24/21 04:00 98.0 76 114/69 (84) 95 Nasal Cannula I&O- Last 24 Hours up to 6 AM 04/24/21 05:59 Intake Total 6650 ml Output Total 1900 ml Balance 4750 ml GME ATTESTATION GME ATTESTATION My faculty preceptor for this patient encounter was physically present during the encounter and was fully available. All aspects of the patient interview, examination, medical decision making process, and medical care plan development were reviewed and approved by the faculty preceptor. The faculty preceptor is aware and concurs with the plan as stated in the body of this note and will attest to such by his/her cosignature. ATTENDING NOTE I, Cira Webster, have independently examined this patient and performed my own physical exam, as well as reviewed the documentation and edited where necessary with the resident. For medical students we have performed the physical exam together and discussed medical decision making and I have verified the history. I have discussed in detail with the resident / student the findings and plan of treatment as documented by the resident / student and edited their note. I agree with their findings and treatment plan and have edited their documentation. I will continue to follow the patient during this hospital stay. DEVON BUTT OMS-3 Apr 24, 2021 08:31 CIRA WEBSTER MD Apr 24, 2021 12:31
[2021-04-24] MEDS ORDERED: LOVE0.6I2 SC (09:42)
[2021-04-24 10:20] LABS: VITAMIN B12 LEVEL 701 PG/ML
[2021-04-24 10:31] LABS: FOLATE 6.3 NG/ML
[2021-04-24] MEDS: NS 1,000 ML IV SCH ×2 (11:07→21:12)
[2021-04-24 11:10] LABS: HEPATITIS B CORE ANTIBODY IGM NEGATIVE (NEGATIVE); HEPATITIS B SURFACE ANTIGEN NEGATIVE (NEGATIVE); HEPATITIS C VIRUS ABY INDEX 0.2 INDEX (<0.8)
[2021-04-24 11:22] LABS: HEMATOCRIT 29.1 % (42.0-52.0); HEMOGLOBIN 9.3 g/dl (13.5-17.5)
--- NOTE | 2021-04-24 16:17 | ECGEPIP ---
[facility] Test Date: 2021-04-22 Pat Name: RYAN CHUNG Department: Room: 0103 Gender: Male Healthcare Technician: CELESTINE : 1965 Requested By: ROSETTE Gil Order Number: [id number] Reading MD: Vicente Carrizales Measurements Intervals [place] Rate: 111 P: 49 IA: 124 QRS: 22 QRSD: 82 T: 55 QT: 326 QTc: 443 Interpretive Statements Sinus tachycardia Possible Left atrial enlargement Increased heart rate & no PVCs compared with 11/21/2018. Electronically Signed on 04-24-2021 16:17:35 EST by Vicente Carrizales
[2021-04-24 18:18] LABS: HEMATOCRIT 29.6 % (42.0-52.0); HEMOGLOBIN 9.4 g/dl (13.5-17.5)
[2021-04-24] MEDS: CALCIUM CARBONATE 500 MG CHEW U/D PO PRN (18:29)
[2021-04-24] MEDS ORDERED: VANCOMYCIN HCL 750 MG, VIAL MATE ADAPTER 1 EACH in NS 250 ML IV SCH (21:00)
[2021-04-24] MEDS: MAALOX 30 ML SUSP *UDC PO PRN (21:25)
[2021-04-25] VITALS (17 sets, daily range): BP systolic 144–177; BP diastolic 70–90; O2SAT 85–97
[2021-04-25] MEDS: PIPERACILLIN/TAZOBACTAM SOD 4.5 GM in D5W MINI-BAG PLUS 50 ML IV SCH ×2 (00:01→05:32)
[2021-04-25] MEDS: NS 1,000 ML IV SCH (00:01)
[2021-04-25] MEDS: IPRATROPIUM 0.5MG/ALBUTEROL 2.5MG INH SOL UD 3ML (DUONEB) NEB SCH ×4 (00:58→19:08)
[2021-04-25] MEDS: ACETAMINOPHEN TAB 650MG DOSE (2X325MG) PO PRN ×2 (01:29→21:40)
[2021-04-25 02:15] LABS: HEMATOCRIT 27.5 % (42.0-52.0); HEMOGLOBIN 8.6 g/dl (13.5-17.5)
[2021-04-25] MEDS: ENOXAPARIN 80MG/0.8ML SYRINGE (J1650 PER 10MG) SC SCH (05:33)
--- NOTE | 2021-04-25 08:16 | IPNPDOC ---
Text Note Date of Service The patient was seen on 04/25/21. NOTE Subjective: CC: SOB Tani Barnes is a 55 year old male with a PMHx of bladder malignancy and coronary artery disease who presented to the ED with CC of SOB after multiple members of his family came down with Rhinovirus and was found to be hypoxic 2ndary to PE vs. pneumonia. Today, patient reports he feels much worse than yesterday, 04/24, when I spoke to him last. He notes much harder time breathing even on 4L with no associated chest pain or pressure, just that he feels he "Can't get enough air". Patient also noted it was difficult for him to converse due to his worsening SOB. In addition to his SOB the patient remarked on the fact that he's been coughing up blood since Saturday and collected it in a bottle. He notes that yesterday he had swelling in his legs which has since subsided but now feels severe diffuse pain in both anterior thighs that he rates as a 7-8/10. He also described a feeling of confusion and light headed at times since yesterday but no associated headache or dizziness. Patient denies any chest pain/pressure, heart palpitations, headache, dizziness, abdominal pain, diarrhea, constipation, or vomiting since last I spoke with him. I spoke with the patient again a few hours later and he reported he was breathing slightly better from the morning and that his leg pain had lessened since walking around. Objective - HEENT: Cranium is normocephalic/ nontraumatic with PERRLA and moist mucous membranes - Cardiac: Regular rate and rhythm with no murmurs or gallops appreciated. - Respiratory. Decreased breath sounds in the left lower lung, hyporesonance appreciated in the middle and lower right lung. Cough upon deep inspiration. - Abdominal: No tenderness to palpation, guarding or distention. Normoactive bowel sounds. - Extremities: No edema noted in bilateral lower extremities. Imaging: CXR 04/23: Bilateral lower lobe infiltrates. Pulmonary edema versus pneumonia. CTA chest 04/23: 1. Limited by motion. 2. Pulmonary emboli in the anterobasal left lower lobe segmental pulmonary artery. 3. No evidence of right ventricular cardiac strain. 4. Ground-glass opacities and consolidations bilaterally. New from prior. Consistent with pneumonia versus pulmonary infarcts. 5. Mild left pleural effusion. New from prior. 6. Bulky mediastinal and hilar lymphadenopathy. Increased from prior. 7. Multiple hypodense nodules in the liver. Consistent with metastatic disease. New from prior. 8. There is progression of metastatic disease from prior study. US Abdomen 04/23: 1. Numerous hypoechoic lesions in liver. Findings correlate with CT. Suspicious for metastatic disease. 2. Mild hydronephrosis bilaterally. Unchanged from prior CT. Probably related to urinary diversion. Assessment and plan: Hypoxia - likely 2/2 pulmonary emboli, strong suspicion for pulmonary infarct, possibly 2/2 pneumonia (HCAP) - Patient presented to ER with complaints of shortness of breath; he is also reported a productive cough - Patient is hemodynamically stable; His tachycardia has resolved - c/w Full anticoagulation started with Lovenox for 2.5 days, now discontinued, will switch to Eliquis 10 mg BID for 4.5 days followed by 5mg BID minimum of 3- 6months - If Eliquis therapy is indicated beyond 6 months will decrease dose to 2.5 mg BID - c/w Morphine for Pain control Pulmonary infarcts / Possible Healthcare associate Pneumonia - Patient has been experiencing a productive cough and is immunocompromised - No fevers noted - Leukocytosis, will trend CRP - PCT of 0.79 - COVID19 / RSV / Influenza 04/23: Negative - Strep pneumo, Legionella, Mycoplasma, MRSA screen pending - Blood cultures 04/23: No growth after 24 hrs - Sputum cultures 04/23: Yeast-like organism with many WBC's - Zosyn/Vanco d/c Suspected Acute COPD, unlikely - This morning patient does not have any wheezing on exam - 04/25 Patient did have decreased breath sounds in the left lower lung and hyporesonance in the lower/middle right lung - Respiratory panel 04/21 at [facility]; Negative - SOB despite being on Solumedrol, discontinued - Prednisone discontinued - c/w Inhaled therapy as ordered Macrocytic anemia - Hg has trended down likely secondary to hemodilution - Will follow Hg trend -04/25/21 Hg 8.4 - Hct decreased from 32.8 on 04/23 to 26.8 04/24, up to 30.3 on 04/25 Lactic acidosis - possibly 2/2 malignancy, possibly 2/2 pulmonary infarct, possibly 2/2 infection - s/p Bolus fluids, d/c due to suspected worsening pleural effusion - type B lactic acidosis suspected due to malignancy - will repeat Lactic Acid given patient reports worsening dyspnea Acute kidney injury - Baseline Cr of ~1.0 on 03/2021 (Verified on [facility]) - Cr currently 1.44, mildly improved compared to 1.5 upon admission - Repeat BMP ordered as well as FENa; follow up with CALEB workup - d/c fluids Metastatic Bladder cancer (Stage IV) with imaging consistent with metastatic spread to liver - Dx 11/2018 - TURBT 11/21/2018 - pT2 high-grade urothelial cell carcinoma, papillary type - Neoadjuvant ddMVAC (methotrexate, vinblastine, doxorubicin, and cisplatin) 12/2018 to 02/2019 - Open radical cystoprostatectomy, bilateral pelvic lymph node dissection, ileal conduit 04/2019 - [id number] urothelial carcinoma - 05/2019; started on immunotherapy and completed his adjuvant therapy with Keytruda of 18th cycle on 05/2020; tolerated well - Metastatic spread noted and gemcitabine and carboplatin were started, completed on 02/2021; Also received radiation to T10 and L5 vertebral bodies - Started on Durvalumab maintenance therapy - Patient states he's also taking Avelumab - Follows with Dr. Cynthia Moody, Oncology and [facility] CAD - Denies any CP - c/w Nitroglycerin PRN - c/w ASA 81, Atorvastatin DVT prophylaxis - c/w full anticoagulation with Eliquis Disposition: pending clinical improvement, anticipates 2-3 more days of stay. VS,Fishbone, I+O VS, Fishbone, I+O Laboratory Tests 04/24/21 11:04 04/24/21 18:02 04/25/21 02:10 Vital Signs Date Time Temp Pulse Resp B/P (MAP) Pulse Ox O2 Delivery O2 Flow Rate FiO2 04/25/21 07:18 98.6 86 20 163/81 (108) 96 Nasal Cannula 4.0 I&O- Last 24 Hours up to 6 AM 04/25/21 06:00 Intake Total 2800 ml Output Total 1850 ml Balance 950 ml GME ATTESTATION GME ATTESTATION My faculty preceptor for this patient encounter was physically present during the encounter and was fully available. All aspects of the patient interview, examination, medical decision making process, and medical care plan development were reviewed and approved by the faculty preceptor. The faculty preceptor is aware and concurs with the plan as stated in the body of this note and will attest to such by his/her cosignature. ATTENDING NOTE I personally examined the patient and discussed his findings with the resident team and medical student and I agree with the above noted assessment and plan. DEVON BUTT OMS-3 Apr 25, 2021 08:16 YUNIOR ROBERTO MD Apr 26, 2021 07:13
[2021-04-25] MEDS: predniSONE 20 MG TAB PO SCH (08:54)
[2021-04-25] MEDS: BACLOFEN 5MG PER 1/2 TABLET PO SCH ×2 (08:54→20:28)
[2021-04-25] MEDS: ATORVASTATIN 20 MG TAB PO SCH (08:54)
[2021-04-25] MEDS: ASPIRIN 81 MG CHEW TABLET PO SCH (08:54)
--- NOTE | 2021-04-25 10:19 | REP ---
INDICATION: Worsening dyspnea COMPARISON: 04/22/2021 TECHNIQUE: PA and lateral. FINDINGS: Vague bilateral opacities, bibasilar atelectasis/consolidation with small pleural effusions (left greater than right), along with right hilar adenopathy remains essentially unchanged. No pneumothorax. No obvious new acute process appreciated. Cardiac silhouette is normal/stable. [id number] again identified with tip in the SVC. IMPRESSION: Adenopathy with bilateral opacities and pleural effusions relatively similar to prior examination. <Electronically signed by David Bridges > 04/25/21 [id number]
[2021-04-25 11:02] LABS: BASO # 0.1 10^3/uL (0.0-0.2); BASO % 0.3 % (0.0-1.0); EOS # 0.1 10^3/uL (0.0-0.5); EOS % 0.3 % (0.0-3.0); HEMATOCRIT 30.3 % (42.0-52.0); HEMOGLOBIN 9.4 g/dl (13.5-17.5); HEMOGLOBIN 9.5 g/dl (13.5-17.5); LYMPH # 1.1 10^3/uL (1.5-5.0); LYMPH % 5.7 % (24.0-44.0); MEAN CORPUSCULAR HEMOGLOBIN 31.4 pg (27.0-33.0); MEAN CORPUSCULAR HGB CONC 31.7 g/dl (32.0-36.5); MONO # 1.7 10^3/uL (0.0-0.8); MONO % 8.7 % (2.0-8.0); NEUTROPHILS # 15.8 10^3/uL (1.5-8.5); NEUTROPHILS % 82.4 % (36.0-66.0); PLATELET COUNT, AUTOMATED 217 10^3/uL (150-450); RED BLOOD COUNT 3.03 10^6/uL (4.30-6.10); WHITE BLOOD COUNT 19.2 10^3/uL (4.0-10.0)
[2021-04-25 11:29] LABS: CALCIUM LEVEL 7.7 MG/DL (8.5-10.1); CREATININE FOR GFR 1.5 MG/DL (0.70-1.30); GLOMERULAR FILTRATION RATE 51.9 (>56); MAGNESIUM LEVEL 2.2 MG/DL (1.8-2.4); POTASSIUM SERUM 4.1 MEQ/L (3.5-5.1)
[2021-04-25 12:18] LABS: INR 1.43; PROTHROMBIN TIME 17.9 SECONDS (12.7-14.5)
[2021-04-25 12:19] LABS: PARTIAL THROMBOPLASTIN TIME 40.9 SECONDS (25.9-37.0)
[2021-04-25 12:45] LABS: CREATININE,RANDOM URINE 40.7 MG/DL; SODIUM,RANDOM URINE 121 MEQ/L
[2021-04-25 13:54] LABS: CALCIUM LEVEL 8.1 MG/DL (8.5-10.1); CREATININE FOR GFR 1.39 MG/DL (0.70-1.30); GLOMERULAR FILTRATION RATE 56.7 (>56); POTASSIUM SERUM 4.4 MEQ/L (3.5-5.1)
[2021-04-25 17:11] LABS: MYCOPLASMA PNEUMONIAE IgG 505 U/mL (0-99); MYCOPLASMA PNEUMONIAE IgM <770 U/mL (0-769)
[2021-04-25 18:43] LABS: HEMATOCRIT 29.7 % (42.0-52.0); HEMOGLOBIN 9.5 g/dl (13.5-17.5)
[2021-04-25] MEDS: ONDANSETRON 4 MG TAB PO PRN (19:50)
[2021-04-25] MEDS ORDERED: ONDANSETRON 4MG/2ML VIAL IV PRN (20:05)
[2021-04-25] MEDS: APIXABAN 5 MG TAB (ELIQUIS) PO SCH (20:28)
[2021-04-26] VITALS: BP 169/92
[2021-04-26] MEDS: IPRATROPIUM 0.5MG/ALBUTEROL 2.5MG INH SOL UD 3ML (DUONEB) NEB SCH ×4 (01:24→20:07)
[2021-04-26 02:37] LABS: HEMATOCRIT 29.2 % (42.0-52.0); HEMOGLOBIN 9.2 g/dl (13.5-17.5)
[2021-04-26] MEDS: MORPHINE 2 MG/ML 1ML VIAL (J2270) IV PRN ×2 (03:01→22:13)
[2021-04-26 04:00] VITALS: BP 156/78
[2021-04-26 05:09] LABS: BASO % 0.2 % (0.0-1.0); EOS % 0.2 % (0.0-3.0); HEMATOCRIT 29.3 % (42.0-52.0); HEMOGLOBIN 9.1 g/dl (13.5-17.5); LYMPH % 10.9 % (24.0-44.0); MEAN CORPUSCULAR HGB CONC 31.1 g/dl (32.0-36.5); MEAN CORPUSCULAR VOLUME 99.7 fl (80.0-96.0); MONO # 2.2 10^3/uL (0.0-0.8); MONO % 11.7 % (2.0-8.0); NEUTROPHILS # 13.6 10^3/uL (1.5-8.5); PLATELET COUNT, AUTOMATED 186 10^3/uL (150-450); RED BLOOD COUNT 2.94 10^6/uL (4.30-6.10); WHITE BLOOD COUNT 18.3 10^3/uL (4.0-10.0)
[2021-04-26 05:45] LABS: ALT/SGPT 50 U/L (12-78); BILIRUBIN,TOTAL 0.4 MG/DL (0.2-1.0); BLOOD UREA NITROGEN 20 MG/DL (7-18); CALCIUM LEVEL 7.6 MG/DL (8.5-10.1); CARBON DIOXIDE LEVEL 24 MEQ/L (21-32); CHLORIDE LEVEL 112 MEQ/L (98-107); CREATININE FOR GFR 1.24 MG/DL (0.70-1.30); GLOMERULAR FILTRATION RATE > 60.0 (>56); GLUCOSE, FASTING 76 MG/DL (70-100); MAGNESIUM LEVEL 2.1 MG/DL (1.8-2.4); POTASSIUM SERUM 4.7 MEQ/L (3.5-5.1); SODIUM LEVEL 143 MEQ/L (136-145); TOTAL PROTEIN 5.2 GM/DL (6.4-8.2)
[2021-04-26 08:00] VITALS: BP 158/86
--- NOTE | 2021-04-26 08:19 | IPNPDOC ---
Text Note Date of Service The patient was seen on 04/26/21. NOTE Subjective: CC: SOB Tani Barnes is a 55 year old male with a PMHx of bladder malignancy and coronary artery disease who presented to the ED with CC of SOB after multiple members of his family came down with Rhinovirus and was found to be hypoxic 2ndary to PE vs. pneumonia. Today, patient reports feeling much better than he had as compared to yesterday 04/24. He notes he is still having labored breathing but was able to walk a few laps of the floor yesterday before he struggled for air. He notes that he is still coughing up blood but denies chest pain or pressure, headache, dizziness, or abdominal pain. The 7-8/10 pain in his anterior thighs has also decreased to a 4/10 as detailed by patient. Patient did remark on an episode of nausea and vomiting , with no blood, after eating dinner and has since had diminished appetite. ROS: - HEENT: Patient denies headache, dizziness, and light headedness. - Cardiac: Patient denies chest pain/ pressure as well as no experienced palpitations. - Respiratory: Patient feels short of breath but denies inspiratory pain or pressure - Abdominal: Patient notes an episode of vomiting after dinner with associated nausea as well as an episode of diarrhea - Extremities: 4/10 pain in the anterior thigh bilaterally, no numbness or tingling noted - Genitourinary: patient denies dysuria or hematuria and no increased frequency Objective: - General appearance: Patient is a fair appearing 55 year old male who appears his stated age and was sitting up comfortably in bed. - HEENT: Cranium is normocephalic/ nontraumatic with PERRLA and moist mucous membranes - Cardiac: Regular rate and rhythm with no murmurs or gallops appreciated. - Respiratory. Decreased breath sounds in the left lower lung, hyporesonance ap preciated in the middle and lower right lung. - Abdominal: No tenderness to palpation, guarding or distention. Normoactive bowel sounds. - Extremities: No edema noted in bilateral lower extremities. No pinpricks, tingling or numbness. No pain upon thigh palpation or associated redness/warmth. - Neuro: CN-12 intact. - Psych: Patient seems to be in a good mood Imaging: CXR 04/23: Bilateral lower lobe infiltrates. Pulmonary edema versus pneumonia. CTA chest 04/23: 1. Limited by motion. 2. Pulmonary emboli in the anterobasal left lower lobe segmental pulmonary artery. 3. No evidence of right ventricular cardiac strain. 4. Ground-glass opacities and consolidations bilaterally. New from prior. Consistent with pneumonia versus pulmonary infarcts. 5. Mild left pleural effusion. New from prior. 6. Bulky mediastinal and hilar lymphadenopathy. Increased from prior. 7. Multiple hypodense nodules in the liver. Consistent with metastatic disease. New from prior. 8. There is progression of metastatic disease from prior study. US Abdomen 04/23: 1. Numerous hypoechoic lesions in liver. Findings correlate with CT. Suspicious for metastatic disease. 2. Mild hydronephrosis bilaterally. Unchanged from prior CT. Probably related to urinary diversion. CXR 04/25 1. Adenopathy with bilateral opacities and pleural effusions relatively similar to prior examination. Assessment and plan: Hypoxia - likely 2/2 pulmonary emboli, strong suspicion for pulmonary infarct, - Patient presented to ER with complaints of shortness of breath; he is also reported a productive cough - Patient is hemodynamically stable; His tachycardia has resolved - c/w Full anticoagulation started with Lovenox for 2.5 days, now discontinued, will switch to Eliquis 10 mg BID for a total of 4.5 days followed by 5mg BID minimum of 3- 6months - If Eliquis therapy is indicated beyond 6 months will decrease dose to 2.5 mg BID - c/w Morphine for Pain control Pulmonary infarcts / unlikely Healthcare associate Pneumonia - Patient has been experiencing a productive cough - No fevers noted - Leukocytosis likely associated with steroid use, CRP was elevated at 9.56, will trend CRP - PCT of 0.79, repeat ordered - COVID19 / RSV / Influenza 04/23: Negative - Strep pneumo+ Legionella pending, Mycoplasma IgG (+) but (-) IgM likely due to past infection given patients cough has been only a few days, MRSA (-) - Blood cultures 04/23: No growth after 24 hrs - Sputum cultures 04/23: Yeast-like organism, possibly contaminations - Zosyn/Vanco d/c Normocytic anemia, stable - Hg has trended down likely secondary to hemodilution - Will follow Hg trend -04/25/21 Hg 8.4, 9.1 as of 04/26 - Hct decreased from 32.8 on 04/23 to 26.8 04/24, up to 30.3 on 04/25, and 29.3 on 04/26 - Folate and B12 WNL - iron panel results consistent with anemia of chronic disease - Will order TSH to r/o hypothyroidism Lactic acidosis, resolved - possibly 2/2 malignancy, possibly 2/2 pulmonary infarct, possibly 2/2 infection - s/p Bolus fluids, d/c due to suspected worsening pleural effusion - type B lactic acidosis suspected due to malignancy - Lactic Acid levels repeated given patient reports worsening dyspnea - 04/26 lactic acid levels WNL at 1.8 Acute kidney injury, resolved - Baseline [facility] ~[facility].0 [facility]20[facility] - Cr currently WNL at 1.24, improved compared to 1.5 upon admission - Repeat BMP ordered as well as FENa; FENa showed intrinsic renal disease Metastatic Bladder cancer (Stage IV) with imaging consistent with metastatic spread to liver - Dx 11/2018 - TURBT 11/21/2018 - pT2 high-grade urothelial cell carcinoma, papillary type - Neoadjuvant ddMVAC (methotrexate, vinblastine, doxorubicin, and cisplatin) 12/2018 to 02/2019 - Open radical cystoprostatectomy, bilateral pelvic lymph node dissection, ileal conduit 04/2019 - [id number] urothelial carcinoma - 05/2019; started on immunotherapy and completed his adjuvant therapy with Keytruda of 18th cycle on 05/2020; tolerated well - Metastatic spread noted and gemcitabine and carboplatin were started, comp leted on 02/2021; Also received radiation to T10 and L5 vertebral bodies - Started on Durvalumab maintenance therapy - Patient states he's also taking Avelumab - Follows with Dr. Cynthia Moody, Oncology and [facility] Chronic CAD - Denies any CP - c/w Nitroglycerin PRN - c/w ASA 81, Atorvastatin DVT prophylaxis - c/w full anticoagulation with Eliquis Disposition: pending clinical improvement, anticipates 1-2 more days of stay. VS,Fishbone, I+O VS, Fishbone, I+O Laboratory Tests 04/25/21 10:34 04/25/21 15:00 04/25/21 18:25 04/26/21 02:21 04/26/21 04:57 Vital Signs Date Time Temp Pulse Resp B/P (MAP) Pulse Ox O2 Delivery O2 Flow Rate FiO2 04/26/21 04:00 98.5 80 22 156/78 (104) 93 Nasal Cannula 4.0 I&O- Last 24 Hours up to 6 AM 04/26/21 06:00 Intake Total 960 ml Output Total 2276 ml Balance -1316 ml GME ATTESTATION GME ATTESTATION My faculty preceptor for this patient encounter was physically present during the encounter and was fully available. All aspects of the patient interview, examination, medical decision making process, and medical care plan development were reviewed and approved by the faculty preceptor. The faculty preceptor is aware and concurs with the plan as stated in the body of this note and will attest to such by his/her cosignature. ATTENDING NOTE I personally examined Mr. Barnes and discussed his clinical status, scant hemoptysis and hypoxemia, lab and imaging findings with the resident physician and I agree with the above detailed assessment and plan. DEVON BUTT OMS-3 Apr 26, 2021 08:19 YUNIOR ROBERTO MD Apr 26, 2021 16:00
[2021-04-26] MEDS: ASPIRIN 81 MG CHEW TABLET PO SCH (08:57)
[2021-04-26] MEDS: BACLOFEN 5MG PER 1/2 TABLET PO SCH ×2 (08:57→20:31)
[2021-04-26] MEDS: ATORVASTATIN 20 MG TAB PO SCH (08:58)
[2021-04-26] MEDS: APIXABAN 5 MG TAB (ELIQUIS) PO SCH ×2 (08:58→20:33)
[2021-04-26] MEDS ORDERED: LACTOBACILLUS ACIDOPHILUS CAP (BACID) PO SCH (09:00)
[2021-04-26 10:48] LABS: HEMATOCRIT 28.9 % (42.0-52.0)
[2021-04-26 12:00] VITALS: BP 152/80
[2021-04-26] MEDS: LACTOBACILLUS ACIDOPHILUS CAP (BACID) PO SCH ×2 (12:41→20:32)
[2021-04-26 15:09] LABS: BODY FLUID CULTURE Not indicated. (.); LEGIONELLA ANTIGEN URINE Negative (Negative); ORGANISM ID Not indicated. (.); SPECIMEN SOURCE Urine (.); URINE STREP PNEUMONIAE ANTIGEN Negative (Negative)
--- NOTE | 2021-04-26 15:32 | REP ---
INDICATION: Worsening hypoxia, PE, hemoptysis COMPARISON: 04/23/2021 TECHNIQUE: Axial noncontrast images from the thoracic inlet to the upper abdomen with coronal and sagittal reformations. This CT examination was performed using the following dose reduction techniques: Automated exposure control, adjustment of mA and/or kv according to the patient's size, and use of iterative reconstruction technique. FINDINGS: Current examination demonstrates moderate bilateral pleural effusions, lower lobe consolidations/atelectasis (left greater than right) and patchy bilateral pulmonary infiltrates/consolidations all of which appear increased from prior examination. Significant reactive mediastinal and hilar adenopathy is also identified and similar to prior examination. Mediastinum also now demonstrates a small new pericardial effusion with maximal with of approximately 8 mm anterior to the right ventricle. Atherosclerotic changes to the thoracic aorta and coronary arteries remains stable and there is no evidence for aortic aneurysm. Scattered sclerotic osseous metastatic lesions are again identified and unchanged. IMPRESSION: 1. Increasing bilateral pleuroparenchymal changes and moderate bilateral pleural effusions. 2. Small new pericardial effusion. 3. Stable mediastinal and hilar adenopathy. 4. Stable osseous metastatic lesions. <Electronically signed by David Bridges > 04/26/21 [id number]
--- NOTE | 2021-04-26 17:38 | REP ---
INDICATION: Bilateral leg pain, PE COMPARISON: None. TECHNIQUE: Nazario scale and color Doppler evaluation using linear high frequency transducer. FINDINGS: Ultrasound examination of the right and left lower extremity deep venous structures from the common femoral vein through the popliteal vein demonstrates normal compressibility, flow and wave patterns in response to respiration and augmentation. Evaluation of the bilateral calf veins demonstrate occlusive thrombus in the bilateral posterior tibial veins. IMPRESSION: 1. Occlusive thrombus in the bilateral mid to distal posterior tibial veins. 2. No evidence of thrombosis from the common femoral vein through the popliteal vein bilateral. <Electronically signed by David Bridges > 04/26/21 [id number]
[2021-04-26] MEDS: LevoFLOXacin 750 MG TABLET PO SCH (18:44)
[2021-04-26 20:00] VITALS: BP 158/88
[2021-04-27] VITALS (17 sets, daily range): BP systolic 130–186; BP diastolic 0–100; O2SAT 89–97
[2021-04-27] MEDS: IPRATROPIUM 0.5MG/ALBUTEROL 2.5MG INH SOL UD 3ML (DUONEB) NEB SCH ×4 (01:14→19:54)
[2021-04-27] MEDS: MORPHINE 2 MG/ML 1ML VIAL (J2270) IV PRN (04:57)
[2021-04-27 06:08] LABS: BASO # 0.1 10^3/uL (0.0-0.2); BASO % 0.4 % (0.0-1.0); EOS # 0.1 10^3/uL (0.0-0.5); EOS % 0.7 % (0.0-3.0); HEMATOCRIT 30.6 % (42.0-52.0); HEMOGLOBIN 9.7 g/dl (13.5-17.5); LYMPH # 1.1 10^3/uL (1.5-5.0); LYMPH % 6.4 % (24.0-44.0); MEAN CORPUSCULAR HEMOGLOBIN 31.3 pg (27.0-33.0); MEAN CORPUSCULAR HGB CONC 31.7 g/dl (32.0-36.5); MEAN CORPUSCULAR VOLUME 98.7 fl (80.0-96.0); MONO # 1.9 10^3/uL (0.0-0.8); MONO % 11.5 % (2.0-8.0); NEUTROPHILS # 12.8 10^3/uL (1.5-8.5); NEUTROPHILS % 76.2 % (36.0-66.0); PLATELET COUNT, AUTOMATED 186 10^3/uL (150-450); WHITE BLOOD COUNT 16.8 10^3/uL (4.0-10.0)
[2021-04-27 06:50] LABS: BLOOD UREA NITROGEN 22 MG/DL (7-18); C REACTIVE PROTEIN QUANTITATIV 9.36 MG/DL (0.00-0.30); CALCIUM LEVEL 7.9 MG/DL (8.5-10.1); CARBON DIOXIDE LEVEL 24 MEQ/L (21-32); CHLORIDE LEVEL 108 MEQ/L (98-107); CREATININE FOR GFR 1.24 MG/DL (0.70-1.30); GLOMERULAR FILTRATION RATE > 60.0 (>56); GLUCOSE, FASTING 80 MG/DL (70-100); MAGNESIUM LEVEL 2.1 MG/DL (1.8-2.4); POTASSIUM SERUM 4.3 MEQ/L (3.5-5.1); SODIUM LEVEL 139 MEQ/L (136-145)
[2021-04-27 08:14] LABS: INR 1.97; PROTHROMBIN TIME 22.8 SECONDS (12.7-14.5)
[2021-04-27 08:15] LABS: PARTIAL THROMBOPLASTIN TIME 40.5 SECONDS (25.9-37.0)
[2021-04-27] MEDS ORDERED: FUROSEMIDE 40MG/4ML VIAL (J1940) IV STA (08:36)
--- NOTE | 2021-04-27 09:30 | IPNPDOC ---
Subjective Date Seen The patient was seen on 04/27/21. Subjective Chief Complaint/HPI Overnight he had one episode of nose bleed with moderate amount of blood and that he requires IV morphine for his left anterior thigh pain. He also required 6L of [place] oxygen overnight and was titrated down to 5L. Patient is examined at bedside today. He reported dyspnea with movement/exertion only. He continues to have cough with some hemoptysis. He denies fever or chills but reported sweating upon awake this morning. He denies chest pain, palpitation, nausea, vomiting, abdominal pain, constipation, hematochezia, hematuria. He reported left anterior thigh throbbing pain rated 6 to 7/10 with alleviating factor being pain medication and no aggravating factor. Denies numbness, tingling, or loss of sensation. General: Reports: Night Sweats; Denies: Chills Constitutional: Denies: Chills Pulmonary: Reports: Dyspnea, Cough Cardiovascular: Denies: Chest Pain, Palpitations Gastrointestinal: Denies: Nausea, Vomiting, Abdominal Pain, Constipation, Hematochezia Genitourinary: Denies: Hematuria Musculoskeletal: Reports: Leg Pain (Positive for left anterior thigh mosley) Neurological: Reports: Other Symptoms (Denies tingling or loss of sensation); Denies: Numbness Objective Physical Examination General Exam: Positive: Alert, Cooperative, Mild Distress Eye Exam: Positive: Other Eye Symptoms (Pupil equal and roung bilaterally. No conjunctiva injections bilaterally) ENT Exam: Positive: Atraumatic, Mucous membr. moist/pink Chest Exam: Positive: Rales (Mild, worse on left), Other (Mildly labored breathing); Negative: Clear to auscultation, Normal air movement, Rhonchi, Wheezing, Diminished Heart Exam: Positive: Rate Normal, Regular Rhythm Telemetry: Positive: Sinus Abdomen Exam: Positive: Normal bowel sounds, BS Hypoactive, Soft, Other (Urostomy bag site appears to be without signs of infection); Negative: Tenderness Extremity Exam: Positive: Other (No signs of phlegmasia cerulea dolens in bilateral lower extremities. No tenderness in bialteral calves); Negative: Cyanosis, Edema, Tenderness, Swelling Skin Exam: Positive: Nl turgor and temperature; Negative: Rash, Breakdown Neuro Exam: Positive: Normal Speech, Normal Tone, Sensation Intact (in left anterior thigh) Psych Exam: Positive: Mental status NL, Anxiety, Memory Intact, Oriented x 3 Assessment /Plan Assessment #Hypoxia likely 2/2 pulmonary embolism and/or pulmonary infarct and/or moderate amount of pleural effusion vs possible pneumonia -Dyspnea with cough. On 5L of [place] oxygen supplementation -Blood pressure and heart rate stable -Continue full anticoagulation. S/p Lovenox for 2.5 day, continued with Eliquis 10 mg BID for a total of 4.5 days followed by 5mg BID for minimum of 3- 6months. If Eliquis indicated beyond 6 months per PCP discussion with patient, will need to be decreased to 2.5 mg BID. Mild amount of blood in sputum without significant hemoptysis -Moderate amount of bilateral pleural effusion on CT chest 04/26/2021. Patient had 3900ml output on 04/26. Will give one time dose of IV 40mg Lasix and monitor BMP in the evening -Continue Levofloxacin for empiric coverage for pneumonia. Continue to trend CRP -Echo pending -Switch IV Morphine to PO Percocet for pain control #Pulmonary infarcts /less likely healthcare associate pneumonia or interstitial pneumonia -Continue to be afebrile with leukocytosis improving -CRP was elevated at 9.36, will trend CRP -Procalcitonin of 0.40, improved from0.79 -COVID19, RSV, and Influenza tested negative. MRSA PCR negative. Strep pneumo and Legionella negative -Mycoplasma IgG positive but negative for IgM likely due to past infection given patients cough has been only a few days -Blood cultures 04/23 showed no growth after 72 hrs -Sputum cultures 04/23 grew yeast-like organism, possibly contaminations -Receive Vanco and Zosyn, now on PO Levofloxacin #Bilateral tibial vein thrombus -Venous duplex bilateral lower extremity US showed "occlusive thrombus in the bilateral mid to distal posterior tibial veins." -No swelling or cyanosis in bilateral lower extremities; no signs of phlegmasia cerulea dolens in bilateral lower extremities -Continue full anticoagulation. S/p Lovenox for 2.5 day, continued with Eliquis 10 mg BID for a total of 4.5 days followed by 5mg BID for minimum of 3- 6 months #Moderate bilateral pleural effusions associated with PE vs less likely pneumonia -CT 04/26/2021 showed "moderate bilateral pleural effusions. -Patient had 1300ml of output from 11/24 -One time dose of 40mg IV Lasix given. Strict I&O #Normocytic anemia, stable -Hg has trended down initially likely due to hemodilution -Hg has been around 9-10 since 04/25/2021. Continue to trend with CBC- -Folate, B12, and TSH within reference range, and iron panel results consistent with anemia of chronic disease #Metastatic Bladder cancer (Stage IV) with bone metastases and likely new liver metastases -CTA 04/23/2021 reported showed "Multiple hypodense nodules in the liver. Consistent with metastatic disease. New from prior. " -Diagnose in 11/2018. TURBT 11/21/2018 showed pT2 high-grade urothelial cell carcinoma, papillary type -Received ddMVAC with methotrexate, vinblastine, doxorubicin, and cisplatin from 12/2018 to 02/2019. S/p open radical cystoprostatectomy with bilateral pelvic lymph node dissection and ileal conduit 04/2019 due to urothelial carcinoma. Currently has a urostomy bag -05/2019 started on immunotherapy and completed his adjuvant therapy with Keytruda of 18th cycle on 05/2020. -Metastatic spread noted and gemcitabine and carboplatin were started and completed in 02/2021. He also received radiation to T10 and L5 vertebral bodies -Currently on Durvalumab maintenance therapy; patient states he is also taking Avelumab -Dr. Moody requested imaging result to be faxed over for questionable liver metastases shown on CTA. Orders for records to be sent over to [facility] Moody placed #Hypertension -Patient's blood pressure has been elevated in 2 separate days -Amlodipine 5mg QD started. Continue to monitor blood pressure #Chronic CAD -Continues to denies chest pain or palpitation -Continue Nitroglycerin PRN with Aspirin 81mg and Atorvastatin DVT prophylaxis: continue full anticoagulation with Eliquis Disposition: Pending clinical improvement. Anticipate 2 more nights of stay Plan/VTE VTE Prophylaxis Ordered?: Yes VS, I&O, 24H, Fishbone Vital Signs/I&O Vital Signs Date Time Temp Pulse Resp B/P (MAP) Pulse Ox O2 Delivery O2 Flow Rate FiO2 04/27/21 05:45 174/88 (116) 04/27/21 05:30 18 Nasal Cannula 5.0 04/27/21 04:00 98.8 90 93 04/26/21 20:00 50 I&O- Last 24 Hours up to 6 AM 04/27/21 06:00 Intake Total 1800 ml Output Total 3625 ml Balance -1825 ml Laboratory Data 24H LABS Laboratory Tests 2 04/26/21 10:12: C-Reactive Protein, Quantitative 4.87H 04/27/21 05:50: C-Reactive Protein, Quantitative 9.36H, Immature Granulocyte % (Auto) 4.8H, Neutrophils (%) (Auto) 76.2H, Lymphocytes (%) (Auto) 6.4L, Monocytes (%) (Auto) 11.5H, Eosinophils (%) (Auto) 0.7, Basophils (%) (Auto) 0.4, Neutrophils # (Auto) 12.8H, Lymphocytes # (Auto) 1.1L, Monocytes # (Auto) 1.9H, Eosinophils # (Auto) 0.1, Basophils # (Auto) 0.1, Nucleated Red Blood Cells % (auto) 0.5H, Anion Gap 7L, Glomerular Filtration Rate > 60.0, Calcium Level 7.9L, Magnesium L evel 2.1, Thyroid Stimulating Hormone (TSH) 2.880 04/27/21 07:40: Prothrombin Time 22.8H, Prothromb Time International Ratio 1.97, Activated Partial Thromboplast Time 40.5H CBC/BMP Laboratory Tests 04/26/21 10:12 04/27/21 05:50 Microbiology Microbiology 04/25/21 Urine Culture - Final, Complete 04/23/21 Gram Stain - Final, Complete 04/23/21 Sputum Culture - Final, Complete Yeast Like Organism 04/23/21 Blood Culture - Preliminary, Resulted No Growth after 72 hours. All specime... 04/23/21 Blood Culture - Preliminary, Resulted No Growth after 72 hours. All specime... GME ATTESTATION GME ATTESTATION My faculty preceptor for this patient encounter was physically present during the encounter and was fully available. All aspects of the patient interview, examination, medical decision making process, and medical care plan development were reviewed and approved by the faculty preceptor. The faculty preceptor is aware and concurs with the plan as stated in the body of this note and will attest to such by his/her cosignature. ATTENDING NOTE I personally examined Mr. Barnes and discussed his clinical progress, hypoxemia, lab and imaging findings with the resident physician and I agree with the above detailed assessment and plan. Of note, I had a discussion with his oncologist on 04/26 and instructed the nurse to facilitate the forwarding of his imaging that was done this hospitalization to her for evaluation of potential POD. IMANI KNAPP DO Apr 27, 2021 09:30 YUNIOR ROBERTO MD Apr 28, 2021 08:43
[2021-04-27] MEDS: ATORVASTATIN 20 MG TAB PO SCH (09:46)
[2021-04-27] MEDS: APIXABAN 5 MG TAB (ELIQUIS) PO SCH ×2 (09:47→20:23)
[2021-04-27] MEDS: LACTOBACILLUS ACIDOPHILUS CAP (BACID) PO SCH ×2 (09:47→20:23)
[2021-04-27] MEDS: ASPIRIN 81 MG CHEW TABLET PO SCH (09:47)
[2021-04-27] MEDS: amLODIPine 5 MG TAB PO SCH (09:48)
[2021-04-27] MEDS: BACLOFEN 5MG PER 1/2 TABLET PO SCH ×2 (09:48→20:23)
[2021-04-27 14:44] LABS: CALCIUM LEVEL 8.5 MG/DL (8.5-10.1); CREATININE FOR GFR 1.61 MG/DL (0.70-1.30); GLOMERULAR FILTRATION RATE 47.8 (>56); POTASSIUM SERUM 4.1 MEQ/L (3.5-5.1)
[2021-04-27 16:20] LABS: CHLAMYDIA PNEUMONIAE IgG <1:16 (Neg:<1:16); CHLAMYDIA PNEUMONIAE IgM <1:10 (Neg:<1:10)
[2021-04-27] MEDS: LevoFLOXacin 750 MG TABLET PO SCH (17:59)
[2021-04-27] MEDS: PERCOCET 5MG/325MG TAB PO PRN (17:59)
[2021-04-28] VITALS (16 sets, daily range): BP systolic 108–154; BP diastolic 61–89; O2SAT 83–98
[2021-04-28] MEDS: IPRATROPIUM 0.5MG/ALBUTEROL 2.5MG INH SOL UD 3ML (DUONEB) NEB SCH ×4 (01:22→20:38)
[2021-04-28] MEDS: PERCOCET 5MG/325MG TAB PO PRN ×2 (01:59→20:34)
[2021-04-28 05:54] LABS: BASO # 0.1 10^3/uL (0.0-0.2); BASO % 0.5 % (0.0-1.0); EOS # 0.2 10^3/uL (0.0-0.5); EOS % 0.9 % (0.0-3.0); HEMATOCRIT 31.7 % (42.0-52.0); HEMOGLOBIN 10.1 g/dl (13.5-17.5); LYMPH # 1.4 10^3/uL (1.5-5.0); LYMPH % 7.6 % (24.0-44.0); MEAN CORPUSCULAR HEMOGLOBIN 31.1 pg (27.0-33.0); MEAN CORPUSCULAR HGB CONC 31.9 g/dl (32.0-36.5); MEAN CORPUSCULAR VOLUME 97.5 fl (80.0-96.0); MONO # 1.8 10^3/uL (0.0-0.8); MONO % 9.7 % (2.0-8.0); NEUTROPHILS # 14.5 10^3/uL (1.5-8.5); NEUTROPHILS % 76.3 % (36.0-66.0); PLATELET COUNT, AUTOMATED 193 10^3/uL (150-450); RED BLOOD COUNT 3.25 10^6/uL (4.30-6.10)
[2021-04-28 06:11] LABS: BLOOD UREA NITROGEN 25 MG/DL (7-18); CALCIUM LEVEL 7.9 MG/DL (8.5-10.1); CARBON DIOXIDE LEVEL 24 MEQ/L (21-32); CHLORIDE LEVEL 106 MEQ/L (98-107); CREATININE FOR GFR 1.31 MG/DL (0.70-1.30); GLOMERULAR FILTRATION RATE > 60.0 (>56); GLUCOSE, FASTING 94 MG/DL (70-100); POTASSIUM SERUM 4.3 MEQ/L (3.5-5.1); SODIUM LEVEL 138 MEQ/L (136-145)
[2021-04-28] MEDS: amLODIPine 5 MG TAB PO SCH (10:03)
[2021-04-28] MEDS: ASPIRIN 81 MG CHEW TABLET PO SCH (10:03)
[2021-04-28] MEDS: BACLOFEN 5MG PER 1/2 TABLET PO SCH ×2 (10:03→20:34)
[2021-04-28] MEDS: LACTOBACILLUS ACIDOPHILUS CAP (BACID) PO SCH ×2 (10:03→20:34)
[2021-04-28] MEDS: APIXABAN 5 MG TAB (ELIQUIS) PO SCH ×2 (10:04→20:34)
[2021-04-28] MEDS: ATORVASTATIN 20 MG TAB PO SCH (10:04)
--- NOTE | 2021-04-28 12:05 | IPNPDOC ---
Subjective Date Seen The patient was seen on 04/28/21. Subjective Chief Complaint/HPI Patient reported improving dyspnea and cough. He still has some amount of hemoptysis. He denies fever, chills, chest pain, palpitation, dyspnea, nausea, vomiting, abdominal pain. He reported left anterior thigh throbbing pain rated is a 9/10 pain. After he gets the Percocet, the anterior thigh pain becomes 6/10. Patient thinks the pain is well controlled with the oral pain medication. Denies numbness, tingling, or loss of sensation in the body. General: Denies: Chills Constitutional: Denies: Chills, Fever Pulmonary: Reports: Dyspnea, Cough Cardiovascular: Denies: Chest Pain, Palpitations Gastrointestinal: Denies: Vomiting, Abdominal Pain Musculoskeletal: Reports: Leg Pain (Anterior thigh pain) Neurological: Denies: Numbness Objective Physical Examination General Exam: Positive: Alert, Cooperative, Mild Distress Eye Exam: Positive: Other Eye Symptoms (Pupil equal and round bilaterally. No conjunctiva injections bilaterally) ENT Exam: Positive: Atraumatic, Mucous membr. moist/pink Chest Exam: Positive: Rales (Mild), Other (Mildly labored breathing); Negative: Clear to auscultation, Normal air movement, Rhonchi, Wheezing, Diminished Heart Exam: Positive: Rate Normal, Regular Rhythm; Negative: Murmurs Abdomen Exam: Positive: Normal bowel sounds, Soft, Other (Urostomy bag site appears to be without signs of infection); Negative: Tenderness Extremity Exam: Positive: Other (No signs of phlegmasia cerulea dolens in bilateral lower extremities. No tenderness in bialteral calves); Negative: Cyanosis, Edema, Tenderness, Swelling Skin Exam: Positive: Nl turgor and temperature, Other skin issue (No cyanosis); Negative: Rash, Breakdown Neuro Exam: Positive: Normal Speech, Normal Tone, Sensation Intact (in bialteral anterior thighs and in bilateral calves) Psych Exam: Positive: Mental status NL, Anxiety, Memory Intact, Oriented x 3 Assessment /Plan Assessment #Hypoxia likely 2/2 PE and/or pulmonary infarct and/or moderate pleural effusion vs possible pneumonia, improving -Dyspnea with cough. Moderate amount of bilateral pleural effusion on CT chest 04/26/2021. Patient received one time dose of IV 40mg Lasix. Now on 3L of NC, improved from 5L NC -Continue full anticoagulation. S/p Lovenox for 2.5 days, continued with Eliquis 10 mg BID for a total of 4.5 days followed by 5mg BID for minimum of 3- 6months. Mild amount of blood in sputum without significant hemoptysis -Continue Levofloxacin for empiric coverage for pneumonia. Continue to trend CRP -Echo report pending -Continue Percocet for pain control #Pulmonary infarcts/less likely healthcare associate pneumonia or interstitial pneumonia -Continue to be afebrile with stable leukocytosis -CRP was elevated at 9.36, will trend CRP -Procalcitonin of 0.40, improved from0.79 -COVID19, RSV, and Influenza tested negative. MRSA PCR negative. Strep pneumo and Legionella negative -Mycoplasma IgG positive but negative for IgM likely due to past infection given patients cough has been only a few days -Blood cultures 04/23 showed no growth after 72 hrs -Sputum cultures 04/23 grew yeast-like organism, possibly contaminations -Received Vanco and Zosyn. Continue with PO Levofloxacin #Bilateral tibial vein thrombus -Venous duplex bilateral lower extremity US showed "occlusive thrombus in the bilateral mid to distal posterior tibial veins." -No swelling or cyanosis in bilateral lower extremities; no signs of phlegmasia cerulea dolens in bilateral lower extremities -Continue full anticoagulation. S/p Lovenox for 2.5 day, continued with Eliquis 10 mg BID for a total of 4.5 days followed by 5mg BID for minimum of 3- 6 months #Moderate bilateral pleural effusions associated with PE vs less likely pneumonia -CT 04/26/2021 showed "moderate bilateral pleural effusions. -One time dose of 40mg IV Lasix given. Strict I&O #Normocytic anemia, stable -Hg has trended down initially likely due to hemodilution -Hg has been around 9-10 since 04/25/2021. Continue to trend with CBC -Folate, B12, and TSH within reference range, and iron panel results consistent with anemia of chronic disease #Metastatic Bladder cancer (Stage IV) with bone metastases and likely new liver metastases -CTA 04/23/2021 reported showed "Multiple hypodense nodules in the liver. Consistent with metastatic disease. New from prior. " -Diagnose in 11/2018. TURBT 11/21/2018 showed pT2 high-grade urothelial cell carcinoma, papillary type -Received ddMVAC with methotrexate, vinblastine, doxorubicin, and cisplatin from 12/2018 to 02/2019. S/p open radical cystoprostatectomy with bilateral pelvic lymph node dissection and ileal conduit 04/2019 due to urothelial carcinoma. Currently has a urostomy bag -05/2019 started on immunotherapy and completed his adjuvant therapy with Keytruda of 18th cycle on 05/2020. -Metastatic spread noted and gemcitabine and carboplatin were started and completed in 02/2021. He also received radiation to T10 and L5 vertebral bodies -Currently on Durvalumab maintenance therapy; patient states he is also taking Avelumab -Dr. Moody requested imaging result to be faxed over for questionable liver metastases shown on CTA. Orders for records to be sent over to [facility] Moody placed #Hypertension -Patient's blood pressure has been elevated in 2 separate days -Amlodipine 5mg QD started. Continue to monitor blood pressure #Chronic CAD -Continues to denies chest pain or palpitation -Continue Nitroglycerin PRN with Aspirin 81mg and Atorvastatin #Debilitation -Start PT evaluation and treatment DVT prophylaxis: continue full anticoagulation with Eliquis Disposition: Pending clinical improvement. Start PT. Anticipate 2 more nights of stay Plan/VTE VTE Prophylaxis Ordered?: Yes VS, I&O, 24H, [facility] Vital Signs/I&O Vital Signs Date Time Temp Pulse Resp B/P (MAP) Pulse Ox O2 Delivery O2 Flow Rate FiO2 04/28/21 10:03 110 138/85 04/28/21 08:25 98.4 20 92 Nasal Cannula 3.0 04/26/21 20:00 50 I&O- Last 24 Hours up to 6 AM 04/28/21 06:00 Intake Total 600 ml Output Total 3625 ml Balance -3025 ml Laboratory Data 24H LABS Laboratory Tests 2 04/27/21 13:54: Anion Gap 10, Glomerular Filtration Rate 47.8L, Calcium Level 8.5 04/28/21 05:19: Anion Gap 8, Glomerular Filtration Rate > 60.0, Calcium Level 7.9L, Immature Granulocyte % (Auto) 5.0H, Neutrophils (%) (Auto) 76.3H, Lymphocytes (%) (Auto) 7.6L, Monocytes (%) (Auto) 9.7H, Eosinophils (%) (Auto) 0.9, Basophils (%) ( Auto) 0.5, Neutrophils # (Auto) 14.5H, Lymphocytes # (Auto) 1.4L, Monocytes # (Auto) 1.8H, Eosinophils # (Auto) 0.2, Basophils # (Auto) 0.1, Nucleated Red Blood Cells % (auto) 0.2H CBC/BMP Laboratory Tests 04/27/21 13:54 04/28/21 05:19 Microbiology Microbiology 04/25/21 Urine Culture - Final, Complete 04/23/21 Gram Stain - Final, Complete 04/23/21 Sputum Culture - Final, Complete Yeast Like Organism 04/23/21 Blood Culture - Final, Complete NO GROWTH AFTER 5 DAYS 04/23/21 Blood Culture - Final, Complete NO GROWTH AFTER 5 DAYS GME ATTESTATION GME ATTESTATION My faculty preceptor for this patient encounter was physically present during the encounter and was fully available. All aspects of the patient interview, examination, medical decision making process, and medical care plan development were reviewed and approved by the faculty preceptor. The faculty preceptor is aware and concurs with the plan as stated in the body of this note and will attest to such by his/her cosignature. ATTENDING NOTE I personally examined Mr. Barnes and discussed his clinical progress, improving hypoxemia, lab and imaging findings with the resident physician and I agree with the above detailed assessment and plan. IMANI KNAPP DO Apr 28, 2021 12:05 YUNIOR ROBERTO MD Apr 29, 2021 08:02
--- NOTE | 2021-04-28 15:12 | ECHO ---
ECHOCARDIOGRAM DATE OF PROCEDURE: 04/26/2021 Age: Gender: Height: 173 cm Weight: 83 kg REFERRING PHYSICIAN: Dr. Massiel Townsend INDICATION: Dyspnea. 2D MEASUREMENTS: Aortic root 3.5 cm Left atrium 4.1 cm Left atrial volume index 48 Left ventricle diastole 4.7 cm Ventricular septum 1.47 cm Posterior wall 1.75 cm Proximal ascending aorta 3.2 cm Inferior vena cava 1.3 cm (more than 50% respiratory variation) DOPPLER MEASUREMENTS: No aortic stenosis or regurgitation. Aortic valve velocity 177 cm/s LVOT velocity 122 cm/s LVOT VTI 20.7 cm Severe mitral regurgitation No mitral stenosis. Mitral E velocity 126 cm/s Mitral A velocity 118 cm/s Mitral E acceleration time 214 msec Mild tricuspid regurgitation. Estimated right ventricle systolic pressure 59-64 mmHg Estimated right atrial pressure of 5-10 mmHg Mild pulmonic regurgitation. MITRAL ANNULAR TISSUE DOPPLER E prime septal 6.7 cm/s E prime lateral 14.5 cm/s DESCRIPTION: Rhythm was sinus, but image quality was good. This was a 2D, M mode, color flow Doppler, and pulse wave Doppler examination, including mitral annular tissue Doppler. CONCLUSIONS: 1. Mild diffuse thickening of the mitral leaflets with mild mitral annular calcification. No mitral valve prolapse. No mitral stenosis. Severe mitral regurgitation. 2. Moderate concentric left ventricular hypertrophy. Normal left ventricle regional LV wall motion and wall thickening. Normal LV systolic function. Normal peak systolic longitudinal strain pattern. LV diastolic function indeterminate due to presence of significant mitral regurgitation. 3. Severe left atrial dilatation by left atrial volume index. 4. Mild aortic valve sclerosis of a 3-cuspid aortic valve. No aortic stenosis or regurgitation. 5. Suggestive of severe elevation of estimated right ventricle systolic pressure (59-64 mmHg). Mild tricuspid regurgitation. Normal right ventricle size and systolic function. Normal size of the right atrium by visual assessment. 6. Small pericardial effusion without diastolic chamber collapse. 7. False tendon at midlevel within the left ventricle (normal variant). 8. Otherwise normal-appearing echocardiogram Doppler findings.
[2021-04-28] MEDS: LevoFLOXacin 750 MG TABLET PO SCH (18:03)
[2021-04-29] VITALS (20 sets, daily range): BP systolic 136–163; BP diastolic 74–92; O2SAT 84–95
[2021-04-29] MEDS: IPRATROPIUM 0.5MG/ALBUTEROL 2.5MG INH SOL UD 3ML (DUONEB) NEB SCH ×4 (01:17→19:27)
[2021-04-29 06:03] LABS: HEMOGLOBIN 9.7 g/dl (13.5-17.5); MEAN CORPUSCULAR HEMOGLOBIN 31.1 pg (27.0-33.0); MEAN CORPUSCULAR HGB CONC 31.3 g/dl (32.0-36.5); MEAN CORPUSCULAR VOLUME 99.4 fl (80.0-96.0); PLATELET COUNT, AUTOMATED 204 10^3/uL (150-450); RED BLOOD COUNT 3.12 10^6/uL (4.30-6.10); WHITE BLOOD COUNT 18.8 10^3/uL (4.0-10.0)
[2021-04-29 06:23] LABS: CALCIUM LEVEL 8.4 MG/DL (8.5-10.1); CREATININE FOR GFR 1.42 MG/DL (0.70-1.30); GLOMERULAR FILTRATION RATE 55.3 (>56); POTASSIUM SERUM 4.3 MEQ/L (3.5-5.1)
[2021-04-29 07:04] LABS: EOSINOPHILS 1 % (0-3); LYMPHOCYTES 6 % (16-44); METAMYELOCYTES 3 % (0-0); MONOCYTES 15 % (0-5); NEUTROPHILS 73 % (28-66)
[2021-04-29 07:06] LABS: PLATELET ESTIMATE NORMAL (NORMAL); POLYCHROMASIA 1+; SCHISTOCYTES 1+
[2021-04-29 07:07] LABS: OVALOCYTES 1+; TEAR DROP CELLS 1+
[2021-04-29] MEDS: ASPIRIN 81 MG CHEW TABLET PO SCH (08:39)
[2021-04-29] MEDS: LACTOBACILLUS ACIDOPHILUS CAP (BACID) PO SCH ×2 (08:39→20:12)
[2021-04-29] MEDS: PERCOCET 5MG/325MG TAB PO PRN ×2 (08:39→20:12)
[2021-04-29] MEDS: ATORVASTATIN 20 MG TAB PO SCH (08:39)
[2021-04-29] MEDS: BACLOFEN 5MG PER 1/2 TABLET PO SCH ×2 (08:39→20:12)
[2021-04-29] MEDS: amLODIPine 5 MG TAB PO SCH (08:40)
[2021-04-29] MEDS: APIXABAN 5 MG TAB (ELIQUIS) PO SCH ×2 (08:40→20:12)
--- NOTE | 2021-04-29 11:41 | IPNPDOC ---
Subjective Date Seen The patient was seen on 04/29/21. Subjective Chief Complaint/HPI Patient that he continued to feel better with improving dyspnea and cough. He has mild amount of hemoptysis. He continued to deny fever, chills, chest pain, palpitation, dyspnea, nausea, vomiting, abdominal pain. He reported bilateral anterior thigh achy pain rated 6-8 out of 10 pain alleviated with pain medication without aggravating medication. Denies fever, chills, nausea, vomiting, hematuria, hematochezia, melena, numbness, tingling, or loss of sensation in the body. General: Denies: Chills Constitutional: Denies: Chills, Fever Pulmonary: Reports: Dyspnea, Cough Cardiovascular: Denies: Chest Pain, Palpitations Gastrointestinal: Denies: Nausea, Vomiting, Abdominal Pain Genitourinary: Denies: Hematuria Musculoskeletal: Reports: Muscle Pain (bilateral anterior thigh pain) Neurological: Reports: Other Symptoms (Denies tingling or loss of sensation ); Denies: Numbness Objective Physical Examination General Exam: Positive: Alert, Cooperative, No Acute Distress Eye Exam: Positive: Conjunctiva & lids normal, Other Eye Symptoms (Pupil equal and round bilaterally) ENT Exam: Positive: Atraumatic, Mucous membr. moist/pink Neck Exam: Positive: Supple Chest Exam: Positive: Clear to auscultation, Normal air movement; Negative: Rales, Rhonchi, Wheezing, Diminished Heart Exam: Positive: Tachycardic, Regular Rhythm; Negative: Murmurs Telemetry: Positive: Sinus, Tachycardia Abdomen Exam: Positive: Normal bowel sounds, Soft, Other (Urostomy bag site appears to be without signs of infection); Negative: Tenderness Extremity Exam: Positive: Other (No signs of phlegmasia cerulea dolens in bilateral lower extremities. No tenderness in bialteral calves); Negative: Cyanosis, Edema, Tenderness, Swelling Skin Exam: Positive: Nl turgor and temperature, Other skin issue (No cyanosis); Negative: Rash, Breakdown Neuro Exam: Positive: Normal Speech, Normal Tone, Sensation Intact (in bial teral anterior thighs and in bilateral calves) Psych Exam: Positive: Mental status NL, Mood NL, Anxiety, Memory Intact, Oriented x 3 Assessment /Plan Assessment #Hypoxia likely 2/2 PE and/or pulmonary infarct and/or moderate pleural effusion vs possible pneumonia, improving -Dyspnea with cough. Moderate amount of bilateral pleural effusion on CT chest 04/26/2021. Patient received one time dose of IV 40mg Lasix. Now on 2L of NC -Continue full anticoagulation. S/p Lovenox for 2.5 days, continued with Eliquis 10 mg BID for a total of 4.5 days followed by 5mg BID for minimum of 3- 6months. Mild amount of blood in sputum without significant hemoptysis -Continue Levofloxacin for empiric coverage for pneumonia. CRP improving -Continue Percocet for pain control #Pulmonary infarcts/less likely healthcare associate pneumonia or interstitial pneumonia -Continue to be afebrile with stable leukocytosis -CRP elevated, improved to 9.29 -Procalcitonin of 0.40, improved from0.79 -COVID19, RSV, Influenza, MRSA PCR, Strep pneumo, and Legionella negative -Mycoplasma IgG positive but negative for IgM likely due to past infection -Blood cultures 04/23 showed no growth after 72 hrs -Sputum cultures 04/23 grew yeast-like organism, possibly contaminations -Received Vanco and Zosyn. Continue with PO Levofloxacin #Bilateral tibial vein thrombus -Venous duplex bilateral lower extremity US showed "occlusive thrombus in the bilateral mid to distal posterior tibial veins." -No swelling or cyanosis in bilateral lower extremities; no signs of phlegmasia cerulea dolens in bilateral lower extremities -Continue full anticoagulation. S/p Lovenox for 2.5 day, continued with Eliquis 10 mg BID for a total of 4.5 days followed by 5mg BID for minimum of 3- 6 months #Moderate bilateral pleural effusions associated with PE vs less likely pneumonia -CT 04/26/2021 showed "moderate bilateral pleural effusions. -One time dose of 40mg IV Lasix given. Strict I&O #Normocytic anemia, stable -Hg has trended down initially likely due to hemodilution -Hg has been around 9-10 since 04/25/2021. Continue to trend with CBC -Folate, B12, and TSH within reference range, and iron panel results consistent with anemia of chronic disease #Metastatic Bladder cancer (Stage IV) with bone metastases and likely new liver metastases -CTA 04/23/2021 reported showed "Multiple hypodense nodules in the liver. Consistent with metastatic disease. New from prior. " -Diagnose in 11/2018. TURBT 11/21/2018 showed pT2 high-grade urothelial cell carcinoma, papillary type -Received ddMVAC with methotrexate, vinblastine, doxorubicin, and cisplatin from 12/2018 to 02/2019. S/p open radical cystoprostatectomy with bilateral pelvic lymph node dissection and ileal conduit 04/2019 due to urothelial carcinoma. Currently has a urostomy bag -05/2019 started on immunotherapy and completed his adjuvant therapy with Keytruda of 18th cycle on 05/2020. -Metastatic spread noted and gemcitabine and carboplatin were started and completed in 02/2021. He also received radiation to T10 and L5 vertebral bodies -Currently on Durvalumab maintenance therapy; patient states he is also taking Avelumab -Dr. Moody requested imaging result to be faxed over for questionable liver metastases shown on CTA. Orders for records to be sent over to [facility] Moody placed #Hypertension -Patient's blood pressure has been elevated in 2 separate days -Continue Amlodipine 5mg QS. Continue to monitor blood pressure #Chronic CAD -Continues to denies chest pain or palpitation -Continue Nitroglycerin PRN with Aspirin 81mg and Atorvastatin #Debilitation -Continue PT evaluation and treatment DVT prophylaxis: continue full anticoagulation with Eliquis Disposition: Pending clinical improvement. Continue PT. Anticipate 1 more nights of stay Plan/VTE VTE Prophylaxis Ordered?: Yes VS, I&O, 24H, Fishbone Vital Signs/I&O Vital Signs Date Time Temp Pulse Resp B/P (MAP) Pulse Ox O2 Delivery O2 Flow Rate FiO2 04/29/21 09:30 20 Nasal Cannula 2.0 04/29/21 08:40 107 140/85 04/29/21 08:34 98.5 92 04/26/21 20:00 50 I&O- Last 24 Hours up to 6 AM 04/29/21 05:59 Intake Total 0 ml Output Total 150 ml Balance -150 ml Laboratory Data 24H LABS Laboratory Tests 2 04/29/21 04:28: Immature Granulocyte % (Auto) , Neutrophils (%) (Auto) , Nucleated Red Blood Cells % (auto) 0.2H, Neutrophils 73H, Band Neutrophils 2, Lymphocytes (Manual) 6L, Monocytes (Manual) 15H, Eosinophils (Manual) 1, Metamyelocytes 3H, Polychromasia 1+, Schistocytes 1+, Tear Drop Cells 1+, Ovalocytes 1+, Platelet Estimate NORMAL, Anion Gap 9, Glomerular Filtration Rate 55.3L, Calcium Level 8.4L, C-Reactive Protein, Quantitative 9.29H CBC/BMP Laboratory Tests 04/29/21 04:28 Microbiology Microbiology 04/25/21 Urine Culture - Final, Complete 04/23/21 Gram Stain - Final, Complete 04/23/21 Sputum Culture - Final, Complete Yeast Like Organism 04/23/21 Blood Culture - Final, Complete NO GROWTH AFTER 5 DAYS 04/23/21 Blood Culture - Final, Complete NO GROWTH AFTER 5 DAYS GME ATTESTATION GME ATTESTATION My faculty preceptor for this patient encounter was physically present during the encounter and was fully available. All aspects of the patient interview, examination, medical decision making process, and medical care plan development were reviewed and approved by the faculty preceptor. The faculty preceptor is aware and concurs with the plan as stated in the body of this note and will attest to such by his/her cosignature. ATTENDING NOTE I personally examined Mr. Barnes and discussed his clinical progress, improving hypoxemia, lab and imaging findings with the resident physician and I agree with the above detailed assessment and plan. IMANI KNAPP DO Apr 29, 2021 11:41 YUNIOR ROBERTO MD Apr 30, 2021 08:23
[2021-04-29] MEDS: LevoFLOXacin 750 MG TABLET PO SCH (17:51)
[2021-04-30] VITALS (13 sets, daily range): BP systolic 123–139; BP diastolic 73–83; O2SAT 91–97
[2021-04-30] MEDS: IPRATROPIUM 0.5MG/ALBUTEROL 2.5MG INH SOL UD 3ML (DUONEB) NEB SCH ×4 (01:03→18:03)
[2021-04-30 05:04] LABS: HEMATOCRIT 31.4 % (42.0-52.0); MEAN CORPUSCULAR HEMOGLOBIN 30.8 pg (27.0-33.0); MEAN CORPUSCULAR HGB CONC 31.8 g/dl (32.0-36.5); MEAN CORPUSCULAR VOLUME 96.6 fl (80.0-96.0); PLATELET COUNT, AUTOMATED 210 10^3/uL (150-450); RED BLOOD COUNT 3.25 10^6/uL (4.30-6.10); WHITE BLOOD COUNT 22.2 10^3/uL (4.0-10.0)
[2021-04-30 05:29] LABS: CALCIUM LEVEL 8.3 MG/DL (8.5-10.1); CREATININE FOR GFR 1.34 MG/DL (0.70-1.30); GLOMERULAR FILTRATION RATE 59.1 (>56); POTASSIUM SERUM 4.4 MEQ/L (3.5-5.1)
[2021-04-30] MEDS: PERCOCET 5MG/325MG TAB PO PRN ×2 (06:05→18:04)
[2021-04-30 06:47] LABS: LYMPHOCYTES 8 % (16-44); MONOCYTES 8 % (0-5); MYELOCYTES 3 % (0-0); NEUTROPHILS 81 % (28-66)
[2021-04-30 06:49] LABS: ANISOCYTOSIS 1+; PLATELET ESTIMATE NORMAL (NORMAL); POLYCHROMASIA 1+; SCHISTOCYTES 1+
[2021-04-30] MEDS ORDERED: FUROSEMIDE 40MG/4ML VIAL (J1940) IV ONE (08:25)
[2021-04-30] MEDS: ASPIRIN 81 MG CHEW TABLET PO SCH (08:38)
[2021-04-30] MEDS: APIXABAN 5 MG TAB (ELIQUIS) PO SCH ×2 (08:38→21:41)
[2021-04-30] MEDS: amLODIPine 5 MG TAB PO SCH (08:39)
[2021-04-30] MEDS: ATORVASTATIN 20 MG TAB PO SCH (08:39)
[2021-04-30] MEDS: BACLOFEN 5MG PER 1/2 TABLET PO SCH ×2 (08:39→21:41)
[2021-04-30] MEDS: LACTOBACILLUS ACIDOPHILUS CAP (BACID) PO SCH ×2 (08:39→21:41)
--- NOTE | 2021-04-30 11:25 | IPNPDOC ---
Text Note Date of Service The patient was seen on 04/30/21. NOTE Subjective: -No acute events overnight -No report of chest pain, hemoptysis is almost resolved with rare streaks in sputum, no abdominal pain, leg pain has improved. Objective: Vitals: see below General appearance: NAD HEENT: Normocephalic/ atraumatic with PERRLA and moist mucous membranes. EOMI Cardiac: Regular rate and rhythm with no murmurs or gallops appreciated. Respiratory. Diminished bases, otherwise moving air well without pamela crackles, rhonchi or wheezing Abdomen: Normoactive sounds, soft, no tenderness to palpation. No guarding or distention. Extremities: No edema noted in bilateral lower extremities. No pain upon thigh palpation or associated redness/warmth. Neuro: CN 3-12 intact, grossly nonfocal Psych: AOx3, normal affect, pleasant mood Imaging: CXR 04/23: Bilateral lower lobe infiltrates. Pulmonary edema versus pneumonia. CTA chest 04/23: 1. Limited by motion. 2. Pulmonary emboli in the anterobasal left lower lobe segmental pulmonary artery. 3. No evidence of right ventricular cardiac strain. 4. Ground-glass opacities and consolidations bilaterally. New from prior. Consistent with pneumonia versus pulmonary infarcts. 5. Mild left pleural effusion. New from prior. 6. Bulky mediastinal and hilar lymphadenopathy. Increased from prior. 7. Multiple hypodense nodules in the liver. Consistent with metastatic disease. New from prior. 8. There is progression of metastatic disease from prior study. US Abdomen 04/23: 1. Numerous hypoechoic lesions in liver. Findings correlate with CT. Suspicious for metastatic disease. 2. Mild hydronephrosis bilaterally. Unchanged from prior CT. Probably related to urinary diversion. CXR 04/25 1. Adenopathy with bilateral opacities and pleural effusions relatively similar to prior examination. Assessment: 55 yo M with a history of metastatic bladder cancer who was admitted for acute SOB with hemoptysis and found to have PE and bilateral DVTs with acute hypoxemic respiratory failure and CALEB. Acute hypoxemic respiratory failure - likely 2/2 pulmonary emboli but also empirically treating for potential CAP given ongoing leukocytosis and elevated procalcitonin - c/w Full anticoagulation, on eliquis 10 mg BID for a total of 7d, then by 5mg BID for life given unprovoked VTE i/s/o malignancy - c/w percocet PRN for pain control - will give lasix 40 IV once today Pulmonary infarcts vs. CAP - Continue levaquin to complete course, MRSA PCR was negative, and strep, legionella, acute mycoplasma were negative. - COVID19 / RSV / Influenza 04/23: Negative - Blood cultures 04/23: No growth after 24 hrs - Sputum cultures 04/23: Yeast-like organism, possibly contaminations Normocytic anemia, stable - Folate and B12 WNL - iron panel results consistent with anemia of chronic disease Lactic acidosis, resolved - possibly 2/2 malignancy, PE with pulmonary infarct, and possible CAP - s/p fluids Acute kidney injury, improved - Baseline Cr of ~1.0 on 03/2021 Metastatic Bladder cancer (Stage IV) with imaging consistent with metastatic spread to liver - Dx 11/2018 - TURBT 11/21/2018 - pT2 high-grade urothelial cell carcinoma, papillary type - Neoadjuvant ddMVAC (methotrexate, vinblastine, doxorubicin, and cisplatin) 12/2018 to 02/2019 - Open radical cystoprostatectomy, bilateral pelvic lymph node dissection, ileal conduit 04/2019 - [id number] urothelial carcinoma - 05/2019; started on immunotherapy and completed his adjuvant therapy with Keytruda of 18th cycle on 05/2020; tolerated well - Metastatic spread noted and gemcitabine and carboplatin were started, completed on 02/2021; Also received radiation to T10 and L5 vertebral bodies - Started on Durvalumab maintenance therapy - Patient states he's also taking Avelumab - Follows with Dr. Cynthia Moody, Oncology and [facility]. Spoke with her on 04/26, pushed all the images from this admission given report of new liver lesio ns. Chronic CAD - Denies any CP - c/w Nitroglycerin PRN - c/w ASA 81, Atorvastatin DVT prophylaxis - c/w full anticoagulation with Eliquis Disposition: PT/OT of safe discharge planning VS,Fishbone, I+O VS, Fishbone, I+O Laboratory Tests 04/30/21 04:53 Vital Signs Date Time Temp Pulse Resp B/P (MAP) Pulse Ox O2 Delivery O2 Flow Rate FiO2 04/30/21 08:10 98.4 99 18 139/83 (101) 92 Nasal Cannula 3.0 04/26/21 20:00 50 I&O- Last 24 Hours up to 6 AM 04/30/21 06:00 Intake Total 0 ml Output Total 0 ml Balance 40 ml YUNIOR ROBERTO MD Apr 30, 2021 08:41
[2021-04-30] MEDS: MAALOX 30 ML SUSP *UDC PO PRN (16:12)
[2021-04-30] MEDS: LevoFLOXacin 750 MG TABLET PO SCH (18:04)
[2021-05-01] VITALS: BP 120/74
[2021-05-01] MEDS: IPRATROPIUM 0.5MG/ALBUTEROL 2.5MG INH SOL UD 3ML (DUONEB) NEB SCH ×4 (01:47→19:34)
[2021-05-01 04:00] VITALS: BP 137/81
[2021-05-01 08:04] VITALS: BP 119/70
[2021-05-01] MEDS: BACLOFEN 5MG PER 1/2 TABLET PO SCH ×2 (09:07→21:06)
[2021-05-01] MEDS: LACTOBACILLUS ACIDOPHILUS CAP (BACID) PO SCH ×2 (09:07→21:06)
[2021-05-01] MEDS: ASPIRIN 81 MG CHEW TABLET PO SCH (09:08)
[2021-05-01] MEDS: PERCOCET 5MG/325MG TAB PO PRN ×2 (09:09→21:10)
[2021-05-01] MEDS: APIXABAN 5 MG TAB (ELIQUIS) PO SCH ×2 (09:09→21:06)
[2021-05-01] MEDS: ATORVASTATIN 20 MG TAB PO SCH (09:09)
[2021-05-01] MEDS: amLODIPine 5 MG TAB PO SCH (09:09)
[2021-05-01 09:58] LABS: HEMATOCRIT 35.6 % (42.0-52.0); HEMOGLOBIN 11.2 g/dl (13.5-17.5); MEAN CORPUSCULAR HEMOGLOBIN 30.8 pg (27.0-33.0); MEAN CORPUSCULAR HGB CONC 31.5 g/dl (32.0-36.5); MEAN CORPUSCULAR VOLUME 97.8 fl (80.0-96.0); PLATELET COUNT, AUTOMATED 232 10^3/uL (150-450); RED BLOOD COUNT 3.64 10^6/uL (4.30-6.10); WHITE BLOOD COUNT 23.5 10^3/uL (4.0-10.0)
[2021-05-01 10:49] LABS: CALCIUM LEVEL 8.2 MG/DL (8.5-10.1); CREATININE FOR GFR 1.63 MG/DL (0.70-1.30); GLOMERULAR FILTRATION RATE 47.2 (>56); MAGNESIUM LEVEL 2.3 MG/DL (1.8-2.4); POTASSIUM SERUM 4.5 MEQ/L (3.5-5.1)
--- NOTE | 2021-05-01 12:04 | IPNPDOC ---
Text Note Date of Service The patient was seen on 05/01/21. NOTE Subjective: -No acute events overnight -No report of chest pain, hemoptysis has mostly resolved, no abdominal pain, leg pain has improved. -He feels weak and winded every time he ambulated more than a few steps Objective: Vitals: see below General appearance: NAD HEENT: Normocephalic/ atraumatic with PERRLA and moist mucous membranes. EOMI Cardiac: Regular rate and rhythm with no murmurs or gallops appreciated. Respiratory. Diminished bases, otherwise moving air well without pamela crackles, rhonchi or wheezing Abdomen: Normoactive sounds, soft, no tenderness to palpation. No guarding or distention. Extremities: No edema noted in bilateral lower extremities. No pain upon thigh palpation or associated redness/warmth. Neuro: CN 3-12 intact, grossly nonfocal Psych: AOx3, normal affect, pleasant mood Labs: reviewed Cr 1.68 today, after lasix yesterday, holding off diuretics Imaging: CXR 04/23: Bilateral lower lobe infiltrates. Pulmonary edema versus pneumonia. CTA chest 04/23: 1. Limited by motion. 2. Pulmonary emboli in the anterobasal left lower lobe segmental pulmonary artery. 3. No evidence of right ventricular cardiac strain. 4. Ground-glass opacities and consolidations bilaterally. New from prior. Consistent with pneumonia versus pulmonary infarcts. 5. Mild left pleural effusion. New from prior. 6. Bulky mediastinal and hilar lymphadenopathy. Increased from prior. 7. Multiple hypodense nodules in the liver. Consistent with metastatic disease. New from prior. 8. There is progression of metastatic disease from prior study. US Abdomen 04/23: 1. Numerous hypoechoic lesions in liver. Findings correlate with CT. Suspicious for metastatic disease. 2. Mild hydronephrosis bilaterally. Unchanged from prior CT. Probably related to urinary diversion. CXR 04/25 1. Adenopathy with bilateral opacities and pleural effusions relatively similar to prior examination. Assessment: 55 yo M with a history of metastatic bladder cancer who was admitted for acute SOB with hemoptysis and found to have PE and bilateral DVTs with acute hypoxemic respiratory failure and CALEB. Acute hypoxemic respiratory failure - likely 2/2 pulmonary emboli but also empirically treating for potential CAP given ongoing leukocytosis and elevated procalcitonin - c/w Full anticoagulation, on eliquis 10 mg BID for a total of 7d, then by 5mg BID for life given unprovoked VTE i/s/o malignancy - c/w percocet PRN for pain control - s/p some PRN lasix Pulmonary infarcts vs. CAP - Continue levaquin to complete course, MRSA PCR was negative, and strep, legionella, acute mycoplasma were negative. - COVID19 / RSV / Influenza 04/23: Negative - Blood cultures 04/23: No growth after 24 hrs - Sputum cultures 04/23: Yeast-like organism, possibly contaminations Normocytic anemia, stable - Folate and B12 WNL - iron panel results consistent with anemia of chronic disease Lactic acidosis, resolved - possibly 2/2 malignancy, PE with pulmonary infarct, and possible CAP - s/p fluids Acute kidney injury, improved but today Cr bumped after some lasix yesterday, will hold off further loop diuretic - Baseline Cr of ~1.0 in 03/2021 Metastatic Bladder cancer (Stage IV) with imaging consistent with metastatic spread to liver - Dx 11/2018 - TURBT 11/21/2018 - pT2 high-grade urothelial cell carcinoma, papillary type - Neoadjuvant ddMVAC (methotrexate, vinblastine, doxorubicin, and cisplatin) 12/2018 to 02/2019 - Open radical cystoprostatectomy, bilateral pelvic lymph node dissection, ileal conduit 04/2019 - [id number] urothelial carcinoma - 05/2019; started on immunotherapy and completed his adjuvant therapy with Keytruda of 18th cycle on 05/2020; tolerated well - Metastatic spread noted and gemcitabine and carboplatin were started, completed on 02/2021; Also received radiation to T10 and L5 vertebral bodies - Started on Durvalumab maintenance therapy - Patient states he's also taking Avelumab - Follows with Dr. Cynthia Moody, Oncology and [facility]. Spoke with her on 04/26, pushed all the images from this admission given report of new liver lesions. Chronic CAD - Denies any CP - c/w Nitroglycerin PRN - c/w ASA 81, Atorvastatin DVT prophylaxis - c/w full anticoagulation with Eliquis Disposition: PT/OT for safe discharge planning VS,Fishbone, I+O VS, Fishbone, I+O Laboratory Tests 05/01/21 09:24 Vital Signs Date Time Temp Pulse Resp B/P (MAP) Pulse Ox O2 Delivery O2 Flow Rate FiO2 05/01/21 10:19 22 05/01/21 08:04 98.1 110 119/70 (86) 96 Nasal Cannula 3.0 04/26/21 20:00 50 I&O- Last 24 Hours up to 6 AM 05/01/21 06:00 Intake Total 2140 ml Output Total 2800 ml Balance -660 ml YUNIOR ROBERTO MD May 01, 2021 11:51
[2021-05-01] MEDS: LevoFLOXacin 750 MG TABLET PO SCH (17:29)
[2021-05-01 17:57] VITALS: BP 132/78
[2021-05-01 20:01] VITALS: BP 127/80
[2021-05-02] VITALS (15 sets, daily range): BP systolic 122–130; BP diastolic 66–84; O2SAT 88–98
[2021-05-02] MEDS: IPRATROPIUM 0.5MG/ALBUTEROL 2.5MG INH SOL UD 3ML (DUONEB) NEB SCH ×4 (02:00→19:36)
[2021-05-02 06:23] LABS: HEMATOCRIT 33.4 % (42.0-52.0); HEMOGLOBIN 10.5 g/dl (13.5-17.5); MEAN CORPUSCULAR HEMOGLOBIN 30.7 pg (27.0-33.0); MEAN CORPUSCULAR HGB CONC 31.4 g/dl (32.0-36.5); MEAN CORPUSCULAR VOLUME 97.7 fl (80.0-96.0); PLATELET COUNT, AUTOMATED 190 10^3/uL (150-450); RED BLOOD COUNT 3.42 10^6/uL (4.30-6.10); WHITE BLOOD COUNT 20.6 10^3/uL (4.0-10.0)
[2021-05-02 06:49] LABS: CALCIUM LEVEL 8.5 MG/DL (8.5-10.1); CREATININE FOR GFR 1.59 MG/DL (0.70-1.30); GLOMERULAR FILTRATION RATE 48.5 (>56); POTASSIUM SERUM 4.6 MEQ/L (3.5-5.1)
[2021-05-02] MEDS: LACTOBACILLUS ACIDOPHILUS CAP (BACID) PO SCH ×2 (09:19→19:19)
[2021-05-02] MEDS: ASPIRIN 81 MG CHEW TABLET PO SCH (09:19)
[2021-05-02] MEDS: APIXABAN 5 MG TAB (ELIQUIS) PO SCH ×2 (09:20→19:19)
[2021-05-02] MEDS: BACLOFEN 5MG PER 1/2 TABLET PO SCH ×2 (09:21→19:19)
[2021-05-02] MEDS: ATORVASTATIN 20 MG TAB PO SCH (09:21)
[2021-05-02] MEDS: amLODIPine 5 MG TAB PO SCH (09:22)
[2021-05-02] MEDS: methylPREDNISolone 40MG 1ML VIAL IV SCH ×2 (10:34→18:19)
[2021-05-02] MEDS: LevoFLOXacin 750 MG TABLET PO SCH (18:18)
[2021-05-02] MEDS: PERCOCET 5MG/325MG TAB PO PRN (18:20)
--- NOTE | 2021-05-02 23:37 | IPNPDOC ---
Subjective Date Seen The patient was seen on 05/02/21. Subjective Chief Complaint/HPI Continues to be SOB requiring 3 l at rest and needing up to 5 l on ambulation. Continues to be tachycardic. Objective Physical Examination General Exam: Positive: Alert, Cooperative, Mild Distress Eye Exam: Positive: Conjunctiva & lids normal, Other Eye Symptoms (Pupil equal and round bilaterally) ENT Exam: Positive: Atraumatic, Mucous membr. moist/pink Neck Exam: Positive: Supple Chest Exam: Positive: Normal air movement, Diminished; Negative: Rales, Rhonchi, Wheezing Heart Exam: Positive: Tachycardic, Regular Rhythm; Negative: Murmurs Telemetry: Positive: Sinus, Tachycardia Abdomen Exam: Positive: Normal bowel sounds, Soft, Other (Urostomy bag site appears to be without signs of infection); Negative: Tenderness Extremity Exam: Negative: Cyanosis, Edema, Tenderness, Swelling Skin Exam: Positive: Nl turgor and temperature; Negative: Rash, Breakdown Neuro Exam: Positive: Normal Speech, Normal Tone, Sensation Intact (in bialteral anterior thighs and in bilateral calves) Psych Exam: Positive: Anxiety, Memory Intact, Oriented x 3 Assessment /Plan Assessment 55 yo M with a history of metastatic bladder cancer, CAD s/p stents, who was admitted for acute SOB with hemoptysis and found to have Pulmonary embolism, possible pulmonary infarcts, bilateral DVTs, Possible bilateral pneumonia with acute hypoxemic respiratory failure. Acute hypoxemic respiratory failure likely 2/2 pulmonary emboli and pulmonary infarcts + possible pneumonia Immunotherapy induced pneumonitis should also be considered though as per his oncologist the medication that he was getting is highly unlikely to cause this. did receive prednisone from 04/23 to 04/25 will restart steroids. Continues to require 3 to 5 liters of oxygen Pulmonary embolism/ Bilateral DVT/ possible pulmonary infarcts continue eliquis. Possible Health care associated Pneumonia Received 3 days of Zosyn 04/23-04/25 then switched to Levaquin. Continue levaquin to complete course, MRSA PCR was negative, and strep, legionella, acute mycoplasma were negative. COVID19 / RSV / Influenza 04/23: Negative Blood cultures 04/23: No growth Sputum cultures 04/23: Yeast-like organism, possibly contaminations Leucocytosis Likely due to GSF and steroids. Sinus tachycardia. Likely due to hypoxia and cancer. Normocytic anemia, stable Folate and B12 WNL Iron panel results consistent with anemia of chronic disease Lactic acidosis resolved CKD stage 3 Baseline creatinine 1.5 from 2019. Metastatic Bladder cancer (Stage IV) with imaging consistent with metastatic spread to liver and bones. Dx 11/2018 TURBT 11/21/2018 - pT2 high-grade urothelial cell carcinoma, papillary type Neoadjuvant ddMVAC (methotrexate, vinblastine, doxorubicin, and cisplatin) 12/2018 to 02/2019 Open radical cystoprostatectomy, bilateral pelvic lymph node dissection, ileal conduit 04/2019 - [id number] urothelial carcinoma 05/2019; started on immunotherapy and completed his adjuvant therapy with Keytruda of 18th cycle on 05/2020; tolerated well Metastatic spread noted and gemcitabine and carboplatin were started, completed on 02/2021; Also received radiation to T10 and L5 vertebral bodies Started on Durvalumab maintenance therapy Patient states he's also taking Avelumab Follows with Dr. Cynthia Moody, Oncology and [facility]. Pushed all the images from this admission given report of new liver lesions. CAD s/p stents c/w ASA 81, Atorvastatin Plan/VTE VTE Prophylaxis Ordered?: Yes VS, I&O, 24H, Fishbone Vital Signs/I&O Vital Signs Date Time Temp Pulse Resp B/P (MAP) Pulse Ox O2 Delivery O2 Flow Rate FiO2 05/02/21 20:00 98.2 118 19 130/84 (99) 96 Nasal Cannula 5.0 04/26/21 20:00 50 I&O- Last 24 Hours up to 6 AM 05/02/21 07:00 Intake Total 800 ml Output Total 1400 ml Balance -600 ml Laboratory Data 24H LABS Laboratory Tests 2 05/02/21 06:08: Nucleated Red Blood Cells % (auto) 0.1H, Anion Gap 11, Glomerular Filtration Rate 48.5L, Calcium Level 8.5 CBC/BMP Laboratory Tests 05/02/21 06:08 Microbiology Microbiology 04/25/21 Urine Culture - Final, Complete 04/23/21 Gram Stain - Final, Complete 04/23/21 Sputum Culture - Final, Complete Yeast Like Organism 04/23/21 Blood Culture - Final, Complete NO GROWTH AFTER 5 DAYS 04/23/21 Blood Culture - Final, Complete NO GROWTH AFTER 5 DAYS Nathaly Telles MD May 02, 2021 23:37
[2021-05-03] VITALS (15 sets, daily range): BP systolic 130–147; BP diastolic 82–87; O2SAT 89–97
[2021-05-03] MEDS: CALCIUM CARBONATE 500 MG CHEW U/D PO PRN ×2 (01:06→16:44)
[2021-05-03] MEDS: IPRATROPIUM 0.5MG/ALBUTEROL 2.5MG INH SOL UD 3ML (DUONEB) NEB SCH ×4 (02:24→19:42)
[2021-05-03] MEDS: methylPREDNISolone 40MG 1ML VIAL IV SCH ×3 (03:21→17:54)
[2021-05-03] MEDS: MAALOX 30 ML SUSP *UDC PO PRN (03:22)
[2021-05-03 06:03] LABS: HEMATOCRIT 32.9 % (42.0-52.0); HEMOGLOBIN 10.3 g/dl (13.5-17.5); MEAN CORPUSCULAR HEMOGLOBIN 30.4 pg (27.0-33.0); MEAN CORPUSCULAR HGB CONC 31.3 g/dl (32.0-36.5); MEAN CORPUSCULAR VOLUME 97.1 fl (80.0-96.0); PLATELET COUNT, AUTOMATED 182 10^3/uL (150-450); RED BLOOD COUNT 3.39 10^6/uL (4.30-6.10); WHITE BLOOD COUNT 28.8 10^3/uL (4.0-10.0)
[2021-05-03 06:27] LABS: CALCIUM LEVEL 8.9 MG/DL (8.5-10.1); CREATININE FOR GFR 1.6 MG/DL (0.70-1.30); GLOMERULAR FILTRATION RATE 48.2 (>56); POTASSIUM SERUM 5.3 MEQ/L (3.5-5.1)
[2021-05-03 08:55] LABS: C REACTIVE PROTEIN QUANTITATIV 10.2 MG/DL (0.00-0.30)
[2021-05-03] MEDS: ASPIRIN 81 MG CHEW TABLET PO SCH (09:05)
[2021-05-03] MEDS: BACLOFEN 5MG PER 1/2 TABLET PO SCH ×2 (09:05→20:14)
[2021-05-03] MEDS: ATORVASTATIN 20 MG TAB PO SCH (09:05)
[2021-05-03] MEDS: amLODIPine 5 MG TAB PO SCH (09:05)
[2021-05-03] MEDS: LACTOBACILLUS ACIDOPHILUS CAP (BACID) PO SCH ×2 (09:05→20:13)
[2021-05-03] MEDS: APIXABAN 5 MG TAB (ELIQUIS) PO SCH ×2 (09:05→20:14)
[2021-05-03 09:33] LABS: ALBUMIN 2.4 GM/DL (3.2-5.2); BILIRUBIN,DIRECT 0.4 MG/DL (0.0-0.2); BILIRUBIN,TOTAL 0.9 MG/DL (0.2-1.0)
[2021-05-03] MEDS ORDERED: FUROSEMIDE 40MG/4ML VIAL (J1940) IV SCH (10:00)
--- NOTE | 2021-05-03 11:22 | REP ---
INDICATION: hypoxia COMPARISON: 04/25/2021 TECHNIQUE: Portable AP view of the chest FINDINGS: Right-sided [id number] with tip in the SVC/right atrium stable. Mediastinum and cardiac silhouette stable and without cardiomegaly. Lung beauchamp demonstrate chronic changes and improved aeration with decreased bilateral opacities and effusions as compared to prior examination. No obvious new process. No pneumothorax. IMPRESSION: Improved aeration with decreased pleuroparenchymal changes as compared with 04/25/2021. <Electronically signed by David Bridges > 05/03/21 1111
--- NOTE | 2021-05-03 15:02 | IPNPDOC ---
Subjective Date Seen The patient was seen on 05/03/21. Subjective Chief Complaint/HPI Remains on 3 L oxygen. Continues to have sinus tachycardia in the range of 110s to 120. Continues to have shortness of breath with minimal exertion. Reports he slept OK. He seems in a better mood today, more optimistic. He tells me he has an appointment with Dr Elliott on 05/05/21. I have consulted pulmonary Objective Physical Examination General Exam: Positive: Alert, Cooperative, Mild Distress Eye Exam: Positive: Conjunctiva & lids normal, Other Eye Symptoms (Pupil equal and round bilaterally) ENT Exam: Positive: Atraumatic, Mucous membr. moist/pink Neck Exam: Positive: Supple Chest Exam: Positive: Normal air movement, Diminished; Negative: Rales, Rhonchi, Wheezing Heart Exam: Positive: Tachycardic, Regular Rhythm; Negative: Murmurs Telemetry: Positive: Sinus, Tachycardia Abdomen Exam: Positive: Normal bowel sounds, Soft, Other (Urostomy bag site appears to be without signs of infection); Negative: Tenderness Extremity Exam: Negative: Cyanosis, Edema, Tenderness, Swelling Skin Exam: Positive: Nl turgor and temperature; Negative: Rash, Breakdown Neuro Exam: Positive: Normal Speech, Normal Tone, Sensation Intact (in bialteral anterior thighs and in bilateral calves) Psych Exam: Positive: Anxiety, Memory Intact, Oriented x 3 Assessment /Plan Assessment 55 yo M with a history of metastatic bladder cancer, CAD s/p stents, who was admitted for acute SOB with hemoptysis and found to have Pulmonary embolism, possible pulmonary infarcts, bilateral DVTs, Possible bilateral pneumonia with acute hypoxemic respiratory failure. Acute hypoxemic respiratory failure 2/2 pulmonary emboli and pulmonary infarcts + possible pneumonia and possible CHF exacerbation Immunotherapy induced pneumonitis should also be considered though as per his oncologist the medication that he was getting is highly unlikely to cause this. did receive prednisone from 04/23 to 04/25 restarted steroids to cover for pneumonitis. Continues to require 3 to 5 liters of oxygen. CXR on 05/03/21 shows improvement from last week. consulted pulmonary. Possible CHF exacerbation with preserved EF. Echo does show severe Mitral regurgitation. restarted on lasix. Pulmonary embolism/ Bilateral DVT/ possible pulmonary infarcts continue eliquis. Possible Health care associated Pneumonia Received 3 days of Zosyn 04/23-11/23 then switched to Levaquin. completed antibiotics. MRSA PCR was negative, and strep, legionella, acute mycoplasma were negative. COVID19 / RSV / Influenza 04/23: Negative Blood cultures 04/23: No growth Sputum cultures 04/23: Yeast-like organism, possibly contaminations Leucocytosis Likely due to GSF and steroids. Sinus tachycardia. Likely due to hypoxia and cancer. Normocytic anemia, stable Folate and B12 WNL Iron panel results consistent with anemia of chronic disease Lactic acidosis resolved CKD stage 3 Baseline creatinine 1.5 from 2019. Metastatic Bladder cancer (Stage IV) with imaging consistent with metastatic spread to liver and bones. Dx 11/2018 TURBT 11/21/2018 - pT2 high-grade urothelial cell carcinoma, papillary type Neoadjuvant ddMVAC (methotrexate, vinblastine, doxorubicin, and cisplatin) 12/2018 to 02/2019 Open radical cystoprostatectomy, bilateral pelvic lymph node dissection, ileal conduit 04/2019 - [id number] urothelial carcinoma 05/2019; started on immunotherapy and completed his adjuvant therapy with Keytruda of 18th cycle on 05/2020; tolerated well Metastatic spread noted and gemcitabine and carboplatin were started, completed on 02/2021; Also received radiation to T10 and L5 vertebral bodies Started on Durvalumab maintenance therapy Patient states he's also taking Avelumab Follows with Dr. Cynthia Moody, Oncology and [facility]. Pushed all the images from this admission given report of new liver lesions. CAD s/p stents c/w ASA 81, Atorvastatin Plan/VTE VTE Prophylaxis Ordered?: Yes VS, I&O, 24H, Fishbone Vital Signs/I&O Vital Signs Date Time Temp Pulse Resp B/P (MAP) Pulse Ox O2 Delivery O2 Flow Rate FiO2 05/03/21 12:00 92 Nasal Cannula 3.0 05/03/21 09:05 121 147/87 05/03/21 08:17 98.5 22 I&O- Last 24 Hours up to 6 AM 05/03/21 06:00 Intake Total 600 ml Output Total 1350 ml Balance -750 ml Laboratory Data 24H LABS Laboratory Tests 2 05/03/21 05:46: Nucleated Red Blood Cells % (auto) 0.1H, Anion Gap 10, Glomerular Filtration Rate 48.2L, Calcium Level 8.9 05/03/21 08:15: Total Bilirubin 0.9, Direct Bilirubin 0.4H, Aspartate Amino Transf (AST/SGOT) 97H, Alanine Aminotransferase (ALT/SGPT) 66, Alkaline Phosphatase 651H, C- Reactive Protein, Quantitative 10.20H, Total Protein 6.0L, Albumin 2.4L, A lbumin/Globulin Ratio 0.7, Procalcitonin 0.97 CBC/BMP Laboratory Tests 05/03/21 05:46 Microbiology Microbiology 04/25/21 Urine Culture - Final, Complete 04/23/21 Gram Stain - Final, Complete 04/23/21 Sputum Culture - Final, Complete Yeast Like Organism 04/23/21 Blood Culture - Final, Complete NO GROWTH AFTER 5 DAYS 04/23/21 Blood Culture - Final, Complete NO GROWTH AFTER 5 DAYS Nathaly Telles MD May 03, 2021 13:56
--- NOTE | 2021-05-03 19:41 | CR.PDOC ---
General Date of Consultation: May 03, 2021 Referring Provider: Nathaly Telles MD Primary Care Physician: Jr Gaines Collins Attending Physician: ELIZABETH MUÑOZ MD Consultation REASON FOR CONSULTATION/CHIEF COMPLAINT: Persistent hypoxia Consulting physician: Dr. Nathaly Telles MD; hospitalist physician HISTORY OF PRESENT ILLNESS: Nicola is a very pleasant 55 yo male w/ notable PMHx of met bladder ca (S4) w/ mets to bone and liver s/p rad cystectomy w/ ileal conduit chemo/rad/current IT, CAD s/p OH x2 stents, former smoker (30pack yr hx), diverticulitis, erectile dysfunction, and deviated septum who originally presented to the [facility] ED on 04/23/21 due to worsening shortness of breath. Patient first noticed his dyspnea around Saturday, 04/14. Apparently the patient had been to see his [facility] oncologist for ongoing immunotherapy related to his metastatic disease on 04/21. At that appointment, the patient was reportedly leukopenic and was given colony-stimulating factor rather than his immunotherapy and a respiratory viral panel was ordered in the setting of his shortness of breath and multiple family members testing positive for rhinovirus. Per reports, the respiratory vi ral panel was negative. The patient described his dyspnea as most severe with exertion and intermittently present at rest and only mild in intensity. After the patient returned home from his oncologist visit, his shortness of breath increased in intensity and he also had associated productive cough with occasional streaks of blood. With the increasing dyspnea, productive cough, and multiple family members also having upper respiratory symptoms, the patient decided to present to the ED. In the ED, the patient was hypoxic and initial imaging showed bibasilar infiltrates with left pleural effusion read as pneumonia versus pulmonary edema, he had leukocytosis, and a mildly elevated procalcitonin. Admitting service ordered a CTA which revealed left lower lobe pulmonary embolus without any right heart strain; there also reported signs concerning for possible pulmonary infarct. Patient was treated for suspected CAP initially with Zosyn, supplemental oxygen, and respiratory support in the form of nebulizers and oral steroid. Patient was also started on full dose anticoagulation in the setting of his PE. Patient also received IV fluids in the setting of SIRS with possible sepsis and borderline acute renal failure. 2 blood cultures were obtained and had no growth for 5 days. A urine culture from his ileal conduit collection bag showed no growth. Patient did have yeast on his sputum culture. As time is progressed, patient is remained hypoxic requiring anywhere between 3 to 5 L of supplemental oxygen to maintain saturations in the 90s. He completed 3 days of oral prednisone as well as 3 days of Zosyn followed by 7 days of levofloxacin. Interval imaging approximately 3 to 4 days into his admission showed slightly worsening bilateral infiltrates with pleural effusion and small pericardial effusion. A transthoracic echocardiogram showed severe mitral regurgitation with significantly elevated right ventricular pressures and a significantly dilated left atrium. On 05/02, the primary service started methylprednisolone dosing due to concern for possible immunotherapy related pneumonitis and his persistent hypoxia. It was at this point that the primary service reached out to the pulmonology team to further evaluate the patient's persistent hypoxia. ALLERGIES: Please see below. HOME MEDICATIONS: Please see below. PAST MEDICAL HISTORY: Metastatic stage IV bladder cancer diagnosed in November 2018 -Patient is status post 11/21/2018 TURBT showing pT2 high-grade urothelial cell carcinoma, papillary type -Neoadjuvant ddMVAC (methotrexate, vinblastine, doxorubicin, and cisplatin) from December 2018 through February 2019 -Open radical cystoprostatectomy, bilateral pelvic lymph node dissection, ileal conduit April [id number] urothelial carcinoma -Started on immunotherapy in May 2019 and completed adjuvant therapy with Keytruda, 18 cycle done in May 2020 -Developed bony metastases and started on carboplatin and gemcitabine, c ompleting this in February 2021; also received radiation to vertebral bodies T10 and L5 -Begin durvalumab maintenance therapy following radiation and this is currently ongoing -Patient follows currently with [facility] oncology, Dr. Cynthia Moody -Found to have signs on imaging during this admission concerning for liver metastases Coronary artery disease status post OH in 2016 and placement of 2 stents -Follows with Dr. 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 Patient is a former smoker having quit approximately April 2020 after smoking a pack a day for 30 years ([id number] history) REVIEW OF SYSTEMS: CONSTITUTIONAL: Reports approximately 15 pound weight loss at the time of this admission. Denies feeling fevers, chills, sweats. CARDIOVASCULAR: Denies chest pain, chest pressure, or palpitations RESPIRATORY: Reports some mild dyspnea while ambulating around his room and wear ing supplemental oxygen but no dyspnea at rest with the supplemental oxygen. Reports productive cough with at times blood-tinged sputum denies pleuritic chest pain. GENITOURINARY: Denies any suprapubic or flank pain and reports no hematuria visible in his urostomy bag. GASTROINTESTINAL: Denies any abdominal pain, nausea/vomiting/diarrhea/recent blood in stool; reports he has not had a bowel movement in approximately 3 days PHYSICAL EXAMINATION: VITAL SIGNS: Please see below. GENERAL APPEARANCE: Pleasant white male lying upright in bed. Thinner build. Appears somewhat pale and slightly ill-appearing. No acute distress. HEENT: Normocephalic, atraumatic. Noninjected, anicteric sclera. Mild conjunctival pallor. There is some facial pallor. Neck: Trachea midline. No significant cervical or supraclavicular lymphadenopathy is appreciated. No JVD. Chest: Port in place over right upper chest. RESPIRATORY: Patient is saturating at 97% on 3 L of nasal cannula supplemental oxygen. There is adequate respiratory effort and tidal volume with moderate wet crackles appreciated in the left lung base posteriorly and some slightly diminished breath sounds of the mid and lower right lung as compared to the left. No wheezes are appreciated. Symmetric chest expansion and no accessory muscle use appreciated. CARDIOVASCULAR: Tachycardic rate, regular rhythm. Normal S1, S2. Heart sounds were slightly distant, although a roughly 2/6 pansystolic murmur was appreciated at the left mid axillary line around 56 ICS. ABDOMEN: Soft, thinner. No tenderness and no distention. There is a urostomy bag present in the right mid to lower abdominal quadrant with good healthy tissue visible and small amount of light yellow-colored urine collected. Normoactive bowel sounds throughout. There is no guarding or rigidity appreciated. Negative CVA tendernes nor flank tenderness bilaterally. No presacral edema appreciated. EXTREMITIES: Bilateral lower extremities are free of pitting edema and are thinner. Somewhat fainter but equal bilateral radial pulses. NEUROLOGICAL: No gross focal neurologic deficits appreciated. Nondysarthric speech. PSYCHIATRIC: Pleasant mood. Appropriate appearing affect. LABORATORY DATA: Please see below. ASSESSMENT/PLAN: This is a 55yo male w/ notable h/o met bladder ca (bone & liver) s/p rad cystectomy w/ ileal conduit and urostomy bag plus chemo/rad/IT, CAD w/ prior OH s/p 2 stents, former smoker ([id number] history), & diverticulitis who originally presented to the ED on 04/23 with 1 week of increasing dyspnea most noticeable on exertion with productive cough and streaks of hemoptysis. On evaluation, patient had hypoxemic respiratory failure initial imaging that showed bilateral infiltrates with left pleural effusion with impression read as "pulmonary edema versus pneumonia." In the setting of slightly elevated procalcitonin and leukocytosis, patient was started on IV fluids, intravenous antimicrobials, and respiratory support in the form of inhalers/nebulizers. Subsequent imaging found left lower lobe PE and full dose anticoagulation was initiated. Patient also was found to have borderline acute renal failure. After completing 10 days of antibiotics as well as receiving 3 days of oral steroids, the patient remained chronically hypoxic and pulmonary service was ultimately consulted on 05/03 for further evaluation. #Acute hypoxemic respiratory failure, likely multifactorial Left lower lobe pulmonary embolism, high suspicion for CHF 2/2 pulmonary edema from severe MR, and persistent CAP vs. new HCAP -Patient has been saturating most recently in the mid to upper 90s on 3-5 L of nasal cannula submental oxygen; per reports, patient does not use O2 at baseline -Patient has been on full dose anticoagulation since identification of PE; also a LE ultrasound did show DVT; no right heart strain was seen. -Imaging has shown b/l infiltrates (initially read as CAP vs pulm edema) w/ pleural effusion, small pericardial effusion, with echo identifying severe mitral regurgitation/left atrial dilation/significantly elevated right ventricular pressures -No imaging in the past few days, repeat chest x-ray ordered -s/p 10 ABx (3d zosyn, 7d levaquin; leukocytosis w/ initial mildly elevated procal of 0.4 -leukocytosis increased on 05/03 to WBC 28 (prior day 20) & procal up to 0.97; no diff on 05/03 CBC, but had prior bandemia with myelocytes and metamyelocytes -Recommending infectious work-up in the form of repeat urinalysis and blood cultures; repeat cxr -s/p 3d po prednisone with initiation of Solu-Medrol on 05/02 due to concern for possible immunotherapy related pneumonitis and prolonged hypoxia -At this stage, feeling is that patient's dyspnea is largely result of pulmonary edema from MR causing CHF and thus administration of high-dose steroids not warranted. -c/w nebs; added IS; cont to encourage ambulation #Possible sepsis, source unknown -Positive SIRS criteria with leukocytosis and tachycardia -Increased WBC and pro-Paulino on 05/03 -Recommend infectious work-up: repeat chest x-ray; repeat urinalysis with reflex to culture; repeat blood cultures -Important to note leukocytosis is in the setting of starting Solu-Medrol on 05/02, and status post 3 days of oral steroids earlier in the admission and see colony-stimulating factor administration on 04/21 #Suspected decompensated congestive heart failure 2/2 severe mitral regurgitation -No signs of LE edema but imaging consistent with pulmonary edema and fluid overload in lungs related to MR. Likely main factor contributing to patient's dyspnea -Based on echo results, we recommend consultation by the cardiology service and possible consideration for transfer to a facility that can perform surgery (mitral valve repair versus mitral valve replacement) -As far as medical standpoint, would recommend to primary service to maintain good control of both blood pressure and heart rate; consideration for use of afterloading agents (antihypertensives/nitrates/diuretics -In the setting of acute renal failure, continue to follow creatinine i/s/o loop diuretic use -Of note, no JVD or presacral edema noted on exam but did have basilar wet crackles. -Likely worsened in the setting of initial IV fluid hydration upon admission with sepsis and concern for pneumonia as well as borderline CALEB #Acute renal failure, nonoliguric -Recent baseline creatinine appears to be 11.2 -This has been persistent since admission; creatinine is increased from admission; 1.6 on 05/03 -Likely secondary to initial poor oral intake plus decreased renal perfusion secondary to severe MR; complicated by loop diuretic administration -Would also recommend low-sodium diet #Acute pulmonary embolism -Initial CTA showed left lower lobe PE without signs for right heart strain and no hemodynamic abnormalities -Patient was started on and is been continued with full anticoagulation; completed the loading dose of Eliquis per review of medicines and is now on 5 mg twice a day dosing #Metastatic bladder cancer with spread to bone and liver -Please see extensive details on patient's neoplastic history in the past medical history section -Imaging on admission showed signs concerning for new metastasis to the liver -Alk phos significantly elevated and likely secondary to prior bony mets with new signs of liver mets -Transaminitis likely is predominantly as a result of new liver mets #Coronary artery disease status post OH with 2 stents -c/w telemetry, ASA, Lipitor -Of note from cardiac standpoint, as discussed extensively in suspected CHF 2/2 severe MR section, would recommend cardiology consultation/possible considera tion for transfer to facility that 10 evaluate patient and deemed if mitral valve repair/replacement surgery warranted #Normocytic anemia, stable -Borderline macrocytic today (MCV 97) -This is likely secondary to anemia of chronic disease based on iron panel; B12 and folate labs were WNL prior on this admission -Imaging signs concerning for new metastatic lesions to liver as well as acute renal failure both possibly affecting RBC state -Remains on Eliquis in setting of acute PE CODE STATUS: Full code Total critical care time spent not including procedures was approximately 45 minutes. Thank you very much for involving the pulmonary service in the care of Nicola. We will continue to follow along with the patient and are available should further questions or concerns from a respiratory standpoint arise. Vital Signs/I&O Vital Signs Date Time Temp Pulse Resp B/P (MAP) Pulse Ox O2 Delivery O2 Flow Rate FiO2 05/03/21 16:24 97.8 121 22 132/82 (99) 96 Nasal Cannula 3.0 I&O- Last 24 Hours up to 6 AM 05/03/21 06:00 Intake Total 600 ml Output Total 1350 ml Balance -750 ml Laboratory Data Labs 24H Laboratory Tests 2 05/03/21 05:46: Nucleated Red Blood Cells % (auto) 0.1H, Anion Gap 10, Glomerular Filtration Rate 48.2L, Calcium Level 8.9 05/03/21 08:15: Total Bilirubin 0.9, Direct Bilirubin 0.4H, Aspartate Amino Transf (AST/SGOT) 97H, Alanine Aminotransferase (ALT/SGPT) 66, Alkaline Phosphatase 651H, C- Reactive Protein, Quantitative 10.20H, Total Protein 6.0L, Albumin 2.4L, Albumin/Globulin Ratio 0.7, Procalcitonin 0.97 CBC/BMP Laboratory Tests 05/03/21 05:46 Microbiology Microbiology 04/25/21 Urine Culture - Final, Complete 04/23/21 Gram Stain - Final, Complete 04/23/21 Sputum Culture - Final, Complete Yeast Like Organism 04/23/21 Blood Culture - Final, Complete NO GROWTH AFTER 5 DAYS 04/23/21 Blood Culture - Final, Complete NO GROWTH AFTER 5 DAYS Allergies Coded Allergies: No Known Allergies (Unverified , 04/01/20) Home Medications Scheduled Amlodipine Besylate (Amlodipine Besylate) 5 Mg Tablet, 5 MG PO DAILY, #30 Apixaban (Eliquis) 5 Mg Tablet, 5 MG PO BID, #60 Aspirin (Aspirin) 81 Mg Tab.chew, 81 MG PO DAILY, (Reported) Atorvastatin Calcium (Atorvastatin Calcium) 40 Mg Tablet, 40 MG PO DAILY, (Reported) Baclofen (Baclofen) 10 Mg Tablet, 5 MG PO BID, #30 Metoprolol Tartrate (Metoprolol Tartrate) 25 Mg Tablet, 25 MG PO BID, #60 Pantoprazole Sodium (Pantoprazole Sodium) 40 Mg Tablet.dr, 40 MG PO BID, #60 Sucralfate (Sucralfate) 1 Gm/10 Ml Oral.susp, 1 GM PO Q6H, #56 Scheduled PRN Nitroglycerin (Nitrostat) 0.4 Mg Tab.subl, 0.4 MG SL NITRO PRN for CHEST PAIN, (Reported) Ondansetron HCl (Ondansetron HCl) 8 Mg Tablet, 8 MG PO Q8HP PRN for NAUSEA, (Reported) Prochlorperazine Maleate (Prochlorperazine Maleate) 10 Mg Tablet, 10 MG PO Q6HP PRN for NAUSEA, (Reported) GME ATTESTATION GME ATTESTATION My faculty preceptor for this patient encounter was physically present during the encounter and was fully available. All aspects of the patient interview, examination, medical decision making process, and medical care plan development were reviewed and approved by the faculty preceptor. The faculty preceptor is aware and concurs with the plan as stated in the body of this note and will attest to such by his/her cosignature. ATTENDING NOTE I, Elizabeth Muñoz, conducted an independent examination and history of the patient and agree with the plan as detailed by the resident and discussed during rounds TERESSA ARROYO D.O. May 03, 2021 19:41 ELIZABETH MUÑOZ MD May 05, 2021 13:52
[2021-05-03] MEDS: PERCOCET 5MG/325MG TAB PO PRN (20:18)
[2021-05-04] VITALS (8 sets, daily range): BP systolic 135–147; BP diastolic 83–90; O2SAT 93–95
[2021-05-04] MEDS: methylPREDNISolone 40MG 1ML VIAL IV SCH (02:26)
[2021-05-04] MEDS: IPRATROPIUM 0.5MG/ALBUTEROL 2.5MG INH SOL UD 3ML (DUONEB) NEB SCH ×4 (03:06→19:37)
[2021-05-04 06:11] LABS: HEMATOCRIT 31.7 % (42.0-52.0); HEMOGLOBIN 10.1 g/dl (13.5-17.5); MEAN CORPUSCULAR HEMOGLOBIN 30.7 pg (27.0-33.0); MEAN CORPUSCULAR HGB CONC 31.9 g/dl (32.0-36.5); MEAN CORPUSCULAR VOLUME 96.4 fl (80.0-96.0); PLATELET COUNT, AUTOMATED 209 10^3/uL (150-450); RED BLOOD COUNT 3.29 10^6/uL (4.30-6.10)
[2021-05-04 06:15] LABS: WHITE BLOOD COUNT 34.8 10^3/uL (4.0-10.0)
[2021-05-04 06:31] LABS: CALCIUM LEVEL 8.6 MG/DL (8.5-10.1); CREATININE FOR GFR 2.02 MG/DL (0.70-1.30); GLOMERULAR FILTRATION RATE 36.8 (>56); POTASSIUM SERUM 5.2 MEQ/L (3.5-5.1)
[2021-05-04] MEDS: ALBUTEROL SULFATE 2.5 MG/0.5 ML INH NEB SOLN NEB PRN (07:34)
[2021-05-04] MEDS: MAALOX 30 ML SUSP *UDC PO PRN (07:54)
[2021-05-04] MEDS ORDERED: PANTOPRAZOLE 40MG TAB (PROTONIX) PO SCH (09:00)
[2021-05-04] MEDS: ASPIRIN 81 MG CHEW TABLET PO SCH (09:18)
[2021-05-04] MEDS: APIXABAN 5 MG TAB (ELIQUIS) PO SCH ×2 (09:18→20:39)
[2021-05-04] MEDS: BACLOFEN 5MG PER 1/2 TABLET PO SCH ×2 (09:18→20:39)
[2021-05-04] MEDS: LACTOBACILLUS ACIDOPHILUS CAP (BACID) PO SCH ×2 (09:18→20:39)
[2021-05-04] MEDS: METOPROLOL TART 25 MG TABLET PO SCH ×2 (09:19→20:39)
[2021-05-04] MEDS: ATORVASTATIN 20 MG TAB PO SCH (09:19)
[2021-05-04] MEDS: amLODIPine 5 MG TAB PO SCH (09:19)
--- NOTE | 2021-05-04 13:27 | IPNPDOC ---
Date Seen The patient was seen on 05/04/21. Progress Note SUBJECTIVE: Satnam was seen and examined this morning (05/04) by the pulmonology service while lying upright in bed. He reports that last night was a "difficult night," largely due to indigestion and restlessness limiting his ability to obtain sleep. He was administered intravenous steroids yesterday evening. While still experiencing intermittent productive cough, he denies any overnight or morning hemoptysis (had been experiencing blood-tinged sputum leading into them during this admission). He has moderate dyspnea on exertion with the supplemental oxygen remain similar to prior days, and he denies any pleuritic chest pain. He reports continued decreased appetite, and denies any chest pressure, chest pain, palpitations, abdominal pain, nausea or vomiting. He has not had a bowel movement in "a couple days." He did have his urostomy bag exchanged since we last saw him on 05/03. OBJECTIVE PHYSICAL EXAMINATION: VITAL SIGNS: Please see below. GENERAL: Very pleasant younger white male who appears ill with pallor w/ areas of bluish skin discoloration. Does not appear to be in any acute distress. Thinner habitus. HEENT: Normocephalic, atraumatic. Noninjected, anicteric sclera. Wearing supplemental nasal cannula oxygen. Facial pallor with areas of bluish discoloration. Chest: Port in place in right upper chest. CARDIOVASCULAR: There is a pansystolic murmur 23/6 appreciated best at the left mid axillary line approximately the fifth/sixth intercostal space. Heart sounds were less distant versus yesterday's exam. Tachycardic rate, regular rhythm. Normal S1, S2. RESPIRATORY: Wearing 4 L of supplemental nasal cannula oxygen. There remains mild to moderate wet sounding crackles in the left mid and lower lung posteriorly. No visualized accessory muscle use appreciated. There were no wheezes. Symmetric chest expansion. Adequate respiratory effort. ABDOMINAL: Thinner abdomen. Soft and nontender. No distention appreciated. No rigidity is appreciated. Urostomy bag has been exchanged since yesterday's exam and there is approximately 75 cc of light yellow-colored urine collected. The visible tissue through the urostomy again appears to be healthy and viable. No CVA tenderness or flank pain bilaterally. EXTREMITIES: Thin extremities x4 without any pitting edema. Areas of bluish discoloration of skin with pallor. NEUROLOGICAL: No gross focal neurologic deficits appreciated. Nondysarthric speech. PSYCHOLOGICAL: Pleasant mood. Appropriate appearing affect. LABORATORY DATA, IMAGING STUDIES, MICROBIOLOGY: Please see below. ASSESSMENT AND PLAN: This is a 55yo male w/ notable h/o met bladder ca (bone & liver) s/p rad cystectomy w/ ileal conduit and urostomy bag plus chemo/rad/IT, CAD w/ prior [place] s/p 2 stents, former smoker ([id number] history), & diverticulitis who originally presented to the ED on 04/23 with 1 week of increasing dyspnea - - most noticeable on exertion - - with productive cough and streaks of hemoptysis. On evaluation, patient had hypoxemic respiratory failure w/ initial imaging showing bilateral infiltrates with left pleural effusion with impression read as "pulmonary edema versus pneumonia." In the setting of slightly elevated procalcitonin and leukocytosis, patient was started on IV fluids, intravenous antimicrobials, and respiratory support in the form of inhalers/nebulizers. Subsequent imaging found left lower lobe PE and full dose anticoagulation was initiated. Patient also was found to have borderline acute renal failure. After completing 10 days of antibiotics as well as receiving 3 days of oral s teroids, the patient remained chronically hypoxic and pulmonary service was ultimately consulted on 05/03 for further evaluation. Initial impression is that patient's dyspnea is due to multiple factors, but most namely the result of pulmonary edema with CHF from severe mitral regurgitation. #Acute hypoxemic respiratory failure, multifactorial -As detailed in consultation note from 05/03, combination of factors namely pulmonary edema from severe mitral regurgitation congestive heart failure, left lower lobe pulmonary embolism, and potential superimposed bacterial pneumonia. -Patient remains on 3-4 L nasal cannula submental oxygen and saturating in the lower to mid 90s overnight. -Repeat interval chest x-ray on 05/03 showed improvement in both the bilateral opacities and effusions, with better aeration. He has been net negative and received IV lasix yesterday. It was then held however given renal function. -c/w nebs; incentive spirometry added on 05/03; continue to encourage ambulation -Please see below for pulmonary embolism treatment #High suspicion for decompensated congestive heart failure from severe mitral regurgitation causing pulmonary edema with concern for cardiorenal progression -TTE read as severe MR w/ significantly dilated left atrium and elevated right ventricular systolic pressure -pleural effusions appreciated on multiple studies during current admission -As this is thought to be primary issue causing dyspnea, have recommended to the primary team to involve cardiology service in approach the subject of possible transfer to facility that can evaluate the patient and perform mitral valve surgery if warranted although his oncologic history complicates his case. -Patient had gotten dosing of Lasix on 05/03 with worsening of kidney function. Subsequently Lasix dosing was stopped and goal to control decreased afterload in the form of beta-michael. Of note, patient has been tachycardic through most of the admission and his pressures continue to run slightly high. -Patient should be on both an MAN inhibitor and a beta-michael. Currently MAN inhibitor is contraindicated in the setting of acute renal failure and thus decision made to initiate beta-blockade with Lopressor 25 mg bid dosing -Of note, the patient had followed with Dr. Carrizales of cardiology as an outpatient. -c/w tele -Please see below for metabolic acidosis secondary to acute renal failure -Would also recommend a nephrology consultation in the setting of concerning picture for cardiorenal syndrome #Metabolic acidosis likely 2/2 acute, nonoliguric renal failure with hy perkalemia and concern for cardiorenal progression -Patient had borderline CALEB on admission which has been increased over the past few days. On 05/04, BUN, creatinine both elevated from prior day. Patient did receive Lasix dosing on 05/03 which could be contributing to the bump; this has been discontinued -Serum potassium has been elevated and likely manifestation of the metabolic acidosis; sK5.2 and bicarb 19 on 05/04 -Good urine output through the last 24 hours (0.88 L/kg/h with a net -310 and a total urine output of 1450 cc. -Baseline creatinine approximately 11.2; sCr 2.02 on 05/04 (was 1.6 on 05/03) -As stated above, would recommend for nephrology consultation #Positive SIRS criteria with unknown source -WBC increased on 05/04-34,000 (28,000 on 05/03); this is in the setting of recently started IV Solu-Medrol dosing -Patient remained afebrile overnight but tachycardic; tachycardia may be more as a result -Repeat urinalysis with culture reflex and 2 blood cultures ordered on 05/03 i/s /o slightly increased leukocytosis #Acute pulmonary embolism -As discussed in yesterday's consultation note, initial CTA showed left lower lobe PE without signs of right heart strain and no hemodynamic compromise -Completed loading dose of Eliquis and now on 5 mg twice daily -On telemetry #Coronary artery disease status post [place] with 2 stents -As discussed above in the acute decompensated CHF section, would recommend cardiology consultation with consideration for possible transfer to facility that performs mitral valve surgery -Patient had previously followed as outpatient with Dr. Carrizales (local [place] [facility]) -C/W telemetry, Lipitor, and aspirin #Normocytic anemia, stable -As discussed in yesterday's exam, this is likely secondary to anemia of chronic disease based on an iron panel from this admission -B12 and folate labs also ordered during this admission were WNL -Patient remains on Eliquis in the setting of acute PE #Metastatic stage IV bladder cancer diagnosed in November 2018 -Patient is status post 11/21/2018 TURBT showing pT2 high-grade urothelial cell carcinoma, papillary type -Neoadjuvant ddMVAC (methotrexate, vinblastine, doxorubicin, and cisplatin) from December 2018 through February 2019 -Open radical cystoprostatectomy, bilateral pelvic lymph node dissection, ileal conduit April [id number] urothelial carcinoma -Started on immunotherapy in May 2019 and completed adjuvant therapy with Keytruda, 18 cycle done in May 2020 -Developed bony metastases and started on carboplatin and gemcitabine, completing this in February 2021; also received radiation to vertebral bodies T10 and L5 -Began durvalumab maintenance therapy following radiation and this is currently ongoing -Patient follows currently with [facility] oncology, Dr. Cynthia Moody -Found to have signs on imaging during this admission concerning for liver metastases CODE STATUS: Full code Total critical care time spent not including procedures was approximately 40 minutes. At this time, the pulmonary service will be signing off in the context of the above stipulated recommendations. Should new developments arise or further ques tions from respiratory standpoint occur, please feel free to reach out. VS, I&O, 24H, Fishbone Vital Signs/I&O Vital Signs Date Time Temp Pulse Resp B/P (MAP) Pulse Ox O2 Delivery O2 Flow Rate FiO2 05/04/21 09:00 94 Nasal Cannula 4.0 05/04/21 07:49 98.9 125 18 135/85 (102) I&O- Last 24 Hours up to 6 AM 05/04/21 06:00 Intake Total 1140 ml Output Total 1450 ml Balance -310 ml Laboratory Data 24H LABS Laboratory Tests 2 05/04/21 05:57: Nucleated Red Blood Cells % (auto) 0.3H, Anion Gap 13, Glomerular Filtration Rate 36.8L, Calcium Level 8.6 05/04/21 11:47: Coronavirus (COVID-19)(PCR) NEGATIVE CBC/BMP Laboratory Tests 05/04/21 05:57 Microbiology Microbiology 05/03/21 Blood Culture, Received Pending 05/03/21 Blood Culture, Received Pending 04/25/21 Urine Culture - Final, Complete GME ATTESTATION GME ATTESTATION My faculty preceptor for this patient encounter was physically present during the encounter and was fully available. All aspects of the patient interview, examination, medical decision making process, and medical care plan development were reviewed and approved by the faculty preceptor. The faculty preceptor is aware and concurs with the plan as stated in the body of this note and will attest to such by his/her cosignature. ATTENDING NOTE I, Elizabeth Muñoz, conducted an independent examination and history of the patient and agree with the plan as detailed by the resident and discussed during rounds TERESSA ARROYO D.O. May 04, 2021 13:27 ELIZABETH MUÑOZ MD May 05, 2021 14:03
[2021-05-04] MEDS ORDERED: methylPREDNISolone 40MG 1ML VIAL IV SCH (14:00)
[2021-05-04] MEDS: SUCRALFATE SUSP 1GM/10ML UD PO SCH ×3 (14:26→23:23)
[2021-05-04] MEDS ORDERED: AMLO1TAB24 PO (18:06)
[2021-05-04] MEDS ORDERED: METO1TAB87 PO (18:06)
[2021-05-04] MEDS ORDERED: BACL10TA2 PO (18:06)
[2021-05-04] MEDS ORDERED: ELIQ5TAB PO (18:06)
[2021-05-04] MEDS ORDERED: SUCR1ORA PO (18:06)
[2021-05-04] MEDS ORDERED: PANT40TA29 PO (18:06)
--- NOTE | 2021-05-04 18:33 | IPNPDOC ---
Subjective Date Seen The patient was seen on 05/04/21. Subjective Chief Complaint/HPI Continues to be severely SOB requiring 4 to 5 liters of oxygen. He also complains of nausea and heart burn . He did have a emesis today with some coffee grounds in it. he reported this had happened before but had not mentioned it to anyone. I have consulted with [employer] supervisor personnel clerks Dr Hinds this am at 9:40 am regarding patient's acute CHF with severe mitral regurgitation and pulmonary hypertension. His opinion is nothing can be done for this patient here he needs to be transferred to [facility] . Patinet's valve needs to be r eplaced. I called [facility] transfer center and they are at maximum capacity and they accepting only STEMI patient's in transfer. I let Dr Hinds know that i will not be able to transfer this patient to higher level of care today. He then called the cardiothoracic surgeon at [facility] Dr Zee for transfer who has accepted the patient. Patient's face sheet has been faxed over to [facility] this am. Till 6 pm we have called back multiple times to see if any bed has become available but unfortunately they do not have any bed yet. Spoke with Mother Mercedes and updated her about our plan for transfer to [facility]. Objective Physical Examination General Exam: Positive: Alert, Cooperative, Mild Distress Eye Exam: Positive: Conjunctiva & lids normal, Other Eye Symptoms (Pupil equal and round bilaterally) ENT Exam: Positive: Atraumatic, Mucous membr. moist/pink Neck Exam: Positive: Supple Chest Exam: Positive: Normal air movement, Diminished; Negative: Rales, Rhonchi, Wheezing Heart Exam: Positive: Tachycardic, Regular Rhythm Telemetry: Positive: Sinus, Tachycardia Abdomen Exam: Positive: Normal bowel sounds, Soft, Other (Urostomy bag site appears to be without signs of infection); Negative: Tenderness Extremity Exam: Negative: Cyanosis, Edema, Tenderness, Swelling Skin Exam: Positive: Nl turgor and temperature; Negative: Rash, Breakdown Neuro Exam: Positive: Normal Speech, Normal Tone, Sensation Intact (in bialteral anterior thighs and in bilateral calves) Psych Exam: Positive: Anxiety, Memory Intact, Oriented x 3 Assessment /Plan Assessment 55 yo M with a history of metastatic bladder cancer, CAD s/p stents, who was ad mitted for acute SOB with hemoptysis and found to have Pulmonary embolism, possible pulmonary infarcts, bilateral DVTs, Possible bilateral pneumonia with acute hypoxemic respiratory failure. Acute hypoxemic respiratory failure 2/2 pulmonary emboli and pulmonary infarcts and CHF exacerbation and pneumonia S/p treatment for pneumonia this admission. Thoughts of Immunotherapy induced pneumonitis were considered so restarted on methyl pred on 05/02 However as per his oncologist the medication that he was getting is highly unlikely to cause this. Also pulmonary did not think the CT picture was suggestive of pneumonitis. So was stopped on 05/04/21 As per pulmonary this is likely pulmonary edema from CHF due to severe mitral regurgitation with severe pulmonary hypertension. Continues to require 3 to 5 liters of oxygen. CXR on 05/03/21 shows improvement from last week. Consulted Dr Hinds from cardiology. He advised transfer to [facility]. As per Dr Hinds who spoke with surgeon Dr Zee patient has been accepted. But they do not have any beds till now. I have asked Dr Hinds to consult and follow the patient here till he can be transferred. CHF exacerbation with preserved EF. Echo does show severe Mitral regurgitation with severe pulmonary hypertension. was restarted on lasix however this caused worsening of renal functions so now has been stopped. Patient may be having cardiorenal syndrome also. Pulmonary embolism/ Bilateral DVT/ possible pulmonary infarcts continue eliquis. Stress gastritis will start on PPI and sucralfate. Possible Health care associated Pneumonia Received 3 days of Zosyn 04/23-04/25 then switched to Levaquin x 7 days. completed antibiotics. MRSA PCR was negative, and strep, legionella, acute mycoplasma were negative. COVID19 / RSV / Influenza 04/23: Negative Blood cultures 04/23: No growth Sputum cultures 04/23: Yeast-like organism, possibly contaminations New blood cultures sent on 05/03/21 and urine culture on 05/04/21 Leucocytosis Reactive Likely due to steroids. Sinus tachycardia. Likely due to hypoxia and CHF Normocytic anemia, stable Folate and B12 WNL Iron panel results consistent with anemia of chronic disease Lactic acidosis resolved Deven on CKD stage 3 Baseline creatinine 1.5 from 2019. Now elevated after giving lasix. Metastatic Bladder cancer (Stage IV) with imaging consistent with metastatic spread to liver and bones. Dx 11/2018 TURBT 11/21/2018 - pT2 high-grade urothelial cell carcinoma, papillary type Neoadjuvant ddMVAC (methotrexate, vinblastine, doxorubicin, and cisplatin) 12/2018 to 02/2019 Open radical cystoprostatectomy, bilateral pelvic lymph node dissection, ileal conduit 04/2019 - [id number] urothelial carcinoma 05/2019; started on immunotherapy and completed his adjuvant therapy with Keytruda of 18th cycle on 05/2020; tolerated well Metastatic spread noted and gemcitabine and carboplatin were started, completed on 02/2021; Also received radiation to T10 and L5 vertebral bodies Started on Durvalumab maintenance therapy Patient states he's also taking Avelumab Follows with Dr. Cynthia Moody, Oncology at [facility]. Pushed all the images from this admission given report of new liver lesions. CAD s/p stents c/w ASA 81, Atorvastatin Plan/VTE VTE Prophylaxis Ordered?: Yes VS, I&O, 24H, Fishbone Vital Signs/I&O Vital Signs Date Time Temp Pulse Resp B/P (MAP) Pulse Ox O2 Delivery O2 Flow Rate FiO2 05/04/21 16:30 98.0 103 18 136/85 (102) 94 Nasal Cannula 5.0 I&O- Last 24 Hours up to 6 AM 05/04/21 07:00 Intake Total 1380 ml Output Total 2150 ml Balance -770 ml Laboratory Data 24H LABS Laboratory Tests 2 05/04/21 05:57: Nucleated Red Blood Cells % (auto) 0.3H, Anion Gap 13, Glomerular Filtration Rate 36.8L, Calcium Level 8.6 05/04/21 11:47: Coronavirus (COVID-19)(PCR) NEGATIVE 05/04/21 13:52: Urine Color YELLOW, Urine Appearance CLOUDYH, Urine pH 6.0, Urine Specific [place] 1.011, Urine Protein 1+H, Urine Glucose (UA) NEGATIVE, Urine Ketones NEGATIVE, Urine Blood 2+H, Urine Nitrite NEGATIVE, Urine Bilirubin NEGATIVE, Urine Urobilinogen 0.2, Urine Leukocyte Esterase TRACEH, Urine WBC (Auto) 95H, Urine RBC (Auto) 15H, Urine Hyaline Casts (Auto) 0, Urine Bacteria (Auto) 1+H, Urine Squamous Epithelial Cells 0, Urine Renal Epithelial Cells 3, Urine Mucus (Auto) SMALL, Urine Sperm (Auto) CBC/BMP Laboratory Tests 05/04/21 05:57 Microbiology Microbiology 05/04/21 Urine Culture, Received Pending 05/03/21 Blood Culture, Received Pending 05/03/21 Blood Culture, Received Pending 04/25/21 Urine Culture - Final, Complete Nathaly Telles MD May 04, 2021 18:22
[2021-05-04] MEDS: PERCOCET 5MG/325MG TAB PO PRN (18:54)
[2021-05-04] MEDS: PANTOPRAZOLE 40MG VIAL (C9113 PER 1) IV SCH (20:42)
[2021-05-05] MEDS: IPRATROPIUM 0.5MG/ALBUTEROL 2.5MG INH SOL UD 3ML (DUONEB) NEB SCH ×2 (01:09→07:05)
[2021-05-05 04:00] VITALS: BP 124/85
[2021-05-05] MEDS: SUCRALFATE SUSP 1GM/10ML UD PO SCH ×2 (05:32→12:11)
[2021-05-05] MEDS: PERCOCET 5MG/325MG TAB PO PRN ×2 (05:34→12:12)
[2021-05-05 06:14] LABS: HEMATOCRIT 32.3 % (42.0-52.0); HEMOGLOBIN 10.2 g/dl (13.5-17.5); MEAN CORPUSCULAR HEMOGLOBIN 30.7 pg (27.0-33.0); MEAN CORPUSCULAR HGB CONC 31.6 g/dl (32.0-36.5); MEAN CORPUSCULAR VOLUME 97.3 fl (80.0-96.0); PLATELET COUNT, AUTOMATED 159 10^3/uL (150-450); RED BLOOD COUNT 3.32 10^6/uL (4.30-6.10)
[2021-05-05 06:16] LABS: WHITE BLOOD COUNT 33.3 10^3/uL (4.0-10.0)
[2021-05-05 06:39] LABS: CALCIUM LEVEL 8.3 MG/DL (8.5-10.1); CREATININE FOR GFR 2.23 MG/DL (0.70-1.30); GLOMERULAR FILTRATION RATE 32.9 (>56); POTASSIUM SERUM 5.2 MEQ/L (3.5-5.1)
[2021-05-05 07:45] VITALS: BP 138/87
[2021-05-05] MEDS: ASPIRIN 81 MG CHEW TABLET PO SCH (07:46)
[2021-05-05] MEDS: METOPROLOL TART 25 MG TABLET PO SCH (07:46)
[2021-05-05] MEDS: BACLOFEN 5MG PER 1/2 TABLET PO SCH (07:46)
[2021-05-05] MEDS: LACTOBACILLUS ACIDOPHILUS CAP (BACID) PO SCH (07:46)
[2021-05-05] MEDS: APIXABAN 5 MG TAB (ELIQUIS) PO SCH (07:47)
[2021-05-05] MEDS: ATORVASTATIN 20 MG TAB PO SCH (07:47)
[2021-05-05] MEDS: PANTOPRAZOLE 40MG VIAL (C9113 PER 1) IV SCH (07:47)
[2021-05-05] MEDS: amLODIPine 5 MG TAB PO SCH (07:47)
--- NOTE | 2021-05-05 10:27 | DS.PDOC ---
Discharge Summary General Date of Admission Apr 23, 2021 at 02:49 Date of Discharge 05/05/21 Discharge Summary PROCEDURES PERFORMED DURING STAY: [None]. DISCHARGE DIAGNOSES: Acute Hypoxic respiratory failure CHF exacerbation with preserved EF. Severe Mitral regurgitation with severe pulmonary hypertension Sinus tachycardia DEVEN on CKD Pulmonary Emboli Bilateral DVTs Reactive Leucocytosis CAD s/p Cardiac stents in 2017 Metastatic Bladder cancer with ileal conduit , s/p RT to T10 and L5 vertebral bodies COMPLICATIONS/CHIEF COMPLAINT: Dyspnea,Sepsis. HOSPITAL COURSE: 55 yo M with a history of metastatic bladder cancer, CAD s/p stents, who was admitted for acute SOB with hemoptysis and found to have Pulmonary embolism, possible pulmonary infarcts, bilateral DVTs, Possible bilateral pneumonia with acute hypoxemic respiratory failure. Hospital course was complicated by cute CHF, Deven on CKD with diuresis. Acute hypoxemic respiratory failure 2/2 pulmonary emboli and pulmonary infarcts and CHF exacerbation and pneumonia S/p treatment for pneumonia this admission. Immunotherapy induced pneumonitis should also be considered though as per his oncologist the medication that he was getting is highly unlikely to cause this. did receive prednisone from 04/23 to 04/25 and methyl pred from 05/02 to 05/04 Seen by pulmonary and as per them this is likely pulmonary edema from CHF due to severe mitral regurgitation with severe pulmonary hypertension. Continues to require 3 to 5 liters of oxygen. CXR on 05/03/21 shows improvement from last week. CHF exacerbation with preserved EF. Echo does show severe Mitral regurgitation with severe pulmonary hypertension. was restarted on lasix however this caused worsening of renal functions so now has been stopped. Pulmonary embolism/ Bilateral DVT/ possible pulmonary infarcts continue eliquis. Possible Health care associated Pneumonia Received 3 days of Zosyn 04/23-04/25 then switched to Levaquin. completed antibiotics. MRSA PCR was negative, and strep, legionella, acute mycoplasma were negative. COVID19 / RSV / Influenza 04/23: Negative Blood cultures 04/23: No growth Sputum cultures 04/23: Yeast-like organism, possibly contaminations Blood culture from 05/03/2021 is negative till date Urine culture from 05/04/2021 is negative Leucocytosis Reactive due to steroids Sinus tachycardia. Likely due to hypoxia and CHF Normocytic anemia, stable Folate and B12 WNL Iron panel results consistent with anemia of chronic disease Lactic acidosis resolved Deven on CKD stage 3 Baseline creatinine 1.5 from 2019. Now elevated after giving lasix. Metastatic Bladder cancer (Stage IV) with imaging consistent with metastatic spread to liver and bones. Dx 11/2018 TURBT 11/21/2018 - pT2 high-grade urothelial cell carcinoma, papillary type Neoadjuvant ddMVAC (methotrexate, vinblastine, doxorubicin, and cisplatin) 12/2018 to 02/2019 Open radical cystoprostatectomy, bilateral pelvic lymph node dissection, ileal conduit 04/2019 - [id number] urothelial carcinoma 05/2019; started on immunotherapy and completed his adjuvant therapy with Zambrano truda of 18th cycle on 05/2020; tolerated well Metastatic spread noted and gemcitabine and carboplatin were started, completed on 02/2021; Also received radiation to T10 and L5 vertebral bodies Started on Durvalumab maintenance therapy Patient states he's also taking Avelumab Follows with Dr. Cynthia Moody, Oncology at [facility]. Pushed all the images from this admission given report of new liver lesions. CAD s/p stents c/w ASA 81, Atorvastatin DISCHARGE MEDICATIONS: Please see below. ALLERGIES: Please see below. PHYSICAL EXAMINATION ON DISCHARGE: VITAL SIGNS: Please see below. General Exam: Positive: Alert, Cooperative, Mild Distress Eye Exam: Positive: Conjunctiva & lids normal, Other Eye Symptoms (Pupil equal and round bilaterally) ENT Exam: Positive: Atraumatic, Mucous membr. moist/pink Neck Exam: Positive: Supple Chest Exam: Positive: Normal air movement, Diminished; Negative: Rales, Rhonchi, Wheezing Heart Exam: Positive: Tachycardic, Regular Rhythm; Negative: Murmurs Telemetry: Positive: Sinus, Tachycardia Abdomen Exam: Positive: Normal bowel sounds, Soft, Other (Urostomy bag site appears to be without signs of infection); Negative: Tenderness Extremity Exam: Negative: Cyanosis, Edema, Tenderness, Swelling Skin Exam: Positive: Nl turgor and temperature; Negative: Rash, Breakdown Neuro Exam: Positive: Normal Speech, Normal Tone, Sensation Intact (in bialteral anterior thighs and in bilateral calves) Psych Exam: Positive: Anxiety, Memory Intact, Oriented x 3 LABORATORY DATA: Please see below. IMAGING: CXR on 05/03/21 Right-sided [id number] with tip in the SVC/right atrium stable. Mediastinum and cardiac silhouette stable and without cardiomegaly. Lung beauchamp demonstrate chronic changes and improved aeration with decreased bilateral opacities and effusions as compared to prior examination. No obvious new process. No pneumothorax. IMPRESSION: Improved aeration with decreased pleuroparenchymal changes as compared with 04/25/2021. Vascular US of both lower ex FINDINGS: Ultrasound examination of the right and left lower extremity deep venous structures from the common femoral vein through the popliteal vein demonstrates normal compressibility, flow and wave patterns in response to respiration and augmentation. Evaluation of the bilateral calf veins demonstrate occlusive thrombus in the bilateral posterior tibial veins. IMPRESSION: 1. Occlusive thrombus in the bilateral mid to distal posterior tibial veins. 2. No evidence of thrombosis from the common femoral vein through the popliteal vein bilateral. CT Chest 04/26/21 Current examination demonstrates moderate bilateral pleural effusions, lower lobe consolidations/atelectasis (left greater than right) and patchy bilateral pulmonary infiltrates/consolidations all of which appear increased from prior examination. Significant reactive mediastinal and hilar adenopathy is also identified and similar to prior examination. Mediastinum also now demonstrates a small new pericardial effusion with maximal with of approximately 8 mm anterior to the right ventricle. Atherosclerotic changes to the thoracic aorta and coronary arteries remains stable and there is no evidence for aortic aneurysm. Scattered sclerotic osseous metastatic lesions are again identified and unchanged. IMPRESSION: 1. Increasing bilateral pleuroparenchymal changes and moderate bilateral pleural effusions. 2. Small new pericardial effusion. 3. Stable mediastinal and hilar adenopathy. 4. Stable osseous metastatic lesions. CXR 04/25 1. Adenopathy with bilateral opacities and pleural effusions relatively similar to prior examination. US abdomen 04/24/21: Pleural spaces: Small left pleural effusion. Mild left pleural effusion. Liver: Numerous hypoechoic lesions in liver measuring up to 9 mm in diameter. Gallbladder: Gallbladder is unremarkable. No gallstones. No gallbladder wall thickening. Common bile duct: CBD measures 3.2 mm in diameter. Pancreas: Visualized pancreas is unremarkable. Right kidney: Right kidney measures 10.7 cm in length. Mild right hydronephrosis. No masses evident. Left kidney: Left kidney measures 12 cm in length. Mild left hydronephrosis. No masses evident. Spleen: Spleen measures 9.8 cm in length. Unremarkable spleen. Aorta: No abdominal aortic aneurysm. Inferior vena cava: Normal. Intraperitoneal space: No free air. No free fluid. IMPRESSION: 1. Numerous hypoechoic lesions in liver. Findings correlate with CT. Suspicious for metastatic disease. 2. Mild hydronephrosis bilaterally. Unchanged from prior CT. Probably related to urinary diversion. CT angio of Chest 04/23/21 COMPARISON: CT Chest with contrast 02/15/2021 1:47 PM FINDINGS: Limitations: Limited by motion artifact. Tubes, catheters and devices: Port-A-Cath on the right with the tip in the distal SVC. Pulmonary arteries: No saddle pulmonary emboli. Pulmonary emboli in the anterolateral basal segment of the left lower lobe. Aorta: Moderate atherosclerotic disease of the aorta. No aortic aneurysm. No aortic dissection. Lungs: Subsegmental atelectasis in the lingula. Mild paraseptal emphysema lung disease. Ground-glass opacities in the superior segment of the right lower lobe, lingula, and left lower lobe. More dense consolidation in posterior basal left lower lobe. Pleural spaces: Trace right pleural effusion. Mild left pleural effusion. No pneumothorax. Heart: Unremarkable. No cardiomegaly. No pericardial effusion. Heart RV/LV ratio: 0.7. Coronary arteries: Severe coronary artery calcification. Lymph nodes: Bulky mediastinal and hilar lymphadenopathy. Liver: Diffuse hypodense nodules in the liver. Bones/joints: Scattered sclerotic lesions in the osseous structures. Mild degenerative spine. No acute fracture. Soft tissues: Unremarkable. IMPRESSION: 1. Limited by motion. 2. Pulmonary emboli in the anterobasal left lower lobe segmental pulmonary artery. 3. No evidence of right ventricular cardiac strain. 4. Ground-glass opacities and consolidations bilaterally. New from prior. Consistent with pneumonia versus pulmonary infarcts. 5. Mild left pleural effusion. New from prior. 6. Bulky mediastinal and hilar lymphadenopathy. Increased from prior. 7. Multiple hypodense nodules in the liver. Consistent with metastatic disease. New from prior. 8. There is progression of metastatic disease from prior study. ECHO: 2D MEASUREMENTS: Aortic root 3.5 cm Left atrium 4.1 cm Left atrial volume index 48 Left ventricle diastole 4.7 cm Ventricular septum 1.47 cm Posterior wall 1.75 cm Proximal ascending aorta 3.2 cm Inferior vena cava 1.3 cm (more than 50% respiratory variation) DOPPLER MEASUREMENTS: No aortic stenosis or regurgitation. Aortic valve velocity 177 cm/s LVOT velocity 122 cm/s LVOT VTI 20.7 cm Severe mitral regurgitation No mitral stenosis. Mitral E velocity 126 cm/s Mitral A velocity 118 cm/s Mitral E acceleration time 214 msec Mild tricuspid regurgitation. Estimated right ventricle systolic pressure 59-64 mmHg Estimated right atrial pressure of 5-10 mmHg Mild pulmonic regurgitation. MITRAL ANNULAR TISSUE DOPPLER E prime septal 6.7 cm/s E prime lateral 14.5 cm/s DESCRIPTION: Rhythm was sinus, but image quality was good. This was a 2D, M mode, color flow Doppler, and pulse wave Doppler examination, including mitral annular tissue Doppler. CONCLUSIONS: 1. Mild diffuse thickening of the mitral leaflets with mild mitral annular calcification. No mitral valve prolapse. No mitral stenosis. Severe mitral regurgitation. 2. Moderate concentric left ventricular hypertrophy. Normal left ventricle regional LV wall motion and wall thickening. Normal LV systolic function. Normal peak systolic longitudinal strain pattern. LV diastolic function indeterminate due to presence of significant mitral regurgitation. 3. Severe left atrial dilatation by left atrial volume index. 4. Mild aortic valve sclerosis of a 3-cuspid aortic valve. No aortic stenosis or regurgitation. 5. Suggestive of severe elevation of estimated right ventricle systolic pressure (59-64 mmHg). Mild tricuspid regurgitation. Normal right ventricle size and systolic function. Normal size of the right atrium by visual assessment. 6. Small pericardial effusion without diastolic chamber collapse. 7. False tendon at midlevel within the left ventricle (normal variant). ACTIVITY: [As tolerated]. DIET: As tolerated DISCHARGE PLAN: Transfer to [facility] ITEMS TO FOLLOWUP ON ON OUTPATIENT: Follow-up final results of blood culture form 05/03/21 DISCHARGE CONDITION: [Stable]. TIME SPENT ON DISCHARGE: 45 minutes. Vital Signs/I&Os Vital Signs Date Time Temp Pulse Resp B/P (MAP) Pulse Ox O2 Delivery O2 Flow Rate FiO2 05/05/21 07:45 98.9 104 18 138/87 (104) 94 Nasal Cannula 5.0 I&O- Last 24 Hours up to 6 AM 05/05/21 06:00 Intake Total 960 ml Output Total 1825 ml Balance -865 ml Laboratory Data Labs 24H Laboratory Tests 2 05/04/21 11:47: Coronavirus (COVID-19)(PCR) NEGATIVE 05/04/21 13:52: Urine Color YELLOW, Urine Appearance CLOUDYH, Urine pH 6.0, Urine Specific [place] 1.011, Urine Protein 1+H, Urine Glucose (UA) NEGATIVE, Urine Ketones NEGATIVE, Urine Blood 2+H, Urine Nitrite NEGATIVE, Urine Bilirubin NEGATIVE, Urine Urobilinogen 0.2, Urine Leukocyte Esterase TRACEH, Urine WBC (Auto) 95H, Urine RBC (Auto) 15H, Urine Hyaline Casts (Auto) 0, Urine Bacteria (Auto) 1+H, Urine Squamous Epithelial Cells 0, Urine Renal Epithelial Cells 3, Urine Mucus (Auto) SMALL, Urine Sperm (Auto) 05/05/21 05:58: Nucleated Red Blood Cells % (auto) 1.2H, Anion Gap 12, Glomerular Filtration Rate 32.9L, Calcium Level 8.3L CBC/BMP Laboratory Tests 05/05/21 05:58 Microbiology Microbiology 05/04/21 Urine Culture - Final, Complete 05/03/21 Blood Culture - Preliminary, Resulted No growth after 24 hours . All specim... 05/03/21 Blood Culture - Preliminary, Resulted No growth after 24 hours . All specim... 04/25/21 Urine Culture - Final, Complete Discharge Medications Scheduled Amlodipine Besylate (Amlodipine Besylate) 5 Mg Tablet, 5 MG PO DAILY Apixaban (Eliquis) 5 Mg Tablet, 5 MG PO BID Aspirin (Aspirin) 81 Mg Tab.chew, 81 MG PO DAILY, (Reported) Atorvastatin Calcium (Atorvastatin Calcium) 40 Mg Tablet, 40 MG PO DAILY, (Reported) Baclofen (Baclofen) 10 Mg Tablet, 5 MG PO BID Metoprolol Tartrate (Metoprolol Tartrate) 25 Mg Tablet, 25 MG PO BID Pantoprazole Sodium (Pantoprazole Sodium) 40 Mg Tablet.dr, 40 MG PO BID Sucralfate (Sucralfate) 1 Gm/10 Ml Oral.susp, 1 GM PO Q6H Scheduled PRN Nitroglycerin (Nitrostat) 0.4 Mg Tab.subl, 0.4 MG SL NITRO PRN for CHEST PAIN, (Reported) Ondansetron HCl (Ondansetron HCl) 8 Mg Tablet, 8 MG PO Q8HP PRN for NAUSEA, (Reported) Prochlorperazine Maleate (Prochlorperazine Maleate) 10 Mg Tablet, 10 MG PO Q6HP PRN for NAUSEA, (Reported) Allergies Coded Allergies: No Known Allergies (Unverified , 04/01/20) Nathaly Telles MD May 05, 2021 10:27
[2021-05-05 12:00] VITALS: BP 126/81
== END 2021-05-05 13:11 | disposition short-term general hospital (02) | DRG 134 ==
LOC: M ED 21:45 → M ED INP 04-23 02:49 → ENRESERV 04-23 06:35 → M PCU 04-23 16:46
PROVIDERS: ADMIT Internal Medicine; ATTEND Internal Medicine Nephrology
DX: I26.99 Other pulmonary embolism without acute cor pulmonale (principal); J96.01 Acute respiratory failure with hypoxia; I50.33 Acute on chronic diastolic (congestive) heart failure; J18.9 Pneumonia, unspecified organism; C78.7 Secondary malignant neoplasm of liver and intrahepatic bile duct; J44.0 Chronic obstructive pulmonary disease with (acute) lower respiratory infection; C68.0 Malignant neoplasm of urethra; D64.9 Anemia, unspecified; C79.51 Secondary malignant neoplasm of bone; I13.0 Hypertensive heart and chronic kidney disease with heart failure and stage 1 through stage 4 chronic kidney disease, or unspecified chronic kidney disease; E87.2 Acidosis; I27.20 Pulmonary hypertension, unspecified; R04.2 Hemoptysis; N18.30 Chronic kidney disease, stage 3 unspecified; I25.2 Old myocardial infarction; I25.10 Atherosclerotic heart disease of native coronary artery without angina pectoris; I82.443 Acute embolism and thrombosis of tibial vein, bilateral; I34.0 Nonrheumatic mitral (valve) insufficiency; Z20.822 Contact with and (suspected) exposure to COVID-19; Z95.5 Presence of coronary angioplasty implant and graft; Z87.891 Personal history of nicotine dependence; Z79.82 Long term (current) use of aspirin; Z79.899 Other long term (current) drug therapy; Z85.51 Personal history of malignant neoplasm of bladder